=== PATIENT | female | born 1965 | race Caucasian/White ===

== ENCOUNTER → 2017-06-29 14:59 | Outpatient (CLI) | payer MEDICAID, SELFPAY ==
[2017-07-04 14:07] LABS: HPV Reflexed? NOT INDICATED
== END ==
PROVIDERS: Visit Provider Obstetrics & Gynecology
DX: Z12.4 Encounter for screening for malignant neoplasm of cervix (principal)
CPT/HCPCS: 88175; G0145

== ENCOUNTER → 2017-07-22 11:25 | Outpatient (CLI) | payer MEDICAID, SELFPAY ==
[2017-07-22 12:29] LABS: Absolute Lymphocyte Count 3.05 X10^3/ul (0.83-4.51); Absolute Neutrophil Count 5.4 X10^3/uL (2.0-7.7); Basophil# 0.02 X10^3/uL; Basophil% 0.2 % (0-1); Eosinophil# 0.15 X10^3/uL; Eosinophils% 1.6 % (0-5); Hematocrit 42.3 % (37-47); Hemoglobin 13.8 g/dl (12.0-15.0); Lymphocyte # 3.05 X10^3/ul (4.0); Lymphocyte % 32.4 % (19-41); Mean Corp Hgb Conc 32.6 g/gl (32-36); Mean Corpuscular Hgb 30.9 pg (27.0-32.0); Mean Corpuscular Volume 94.8 fL (81-99); Mean Platelet Vol. 9.3 fl (6.2-12.0); Monocyte# 0.76 X10^3/uL; Monocyte% 8.1 % (0-10); Neutrophil # 5.39 X10^3/uL (2.7-7.7); Neutrophil % 57.4 % (47-70); Platelet Count 300 K/mm3 (150-450); RBC Distribution Width SD 45.2 fl (35.1-43.9); Red Blood Count 4.46 M/mm3 (4.2-5.4); White Blood Count 9.4 K/mm3 (4.4-11.0)
[2017-07-22 12:39] LABS: POSITIVE COUNT NO; POSITIVE DIFFERENTIAL NO; POSITIVE MORPHOLOGY NO
[2017-07-22 13:07] LABS: Anion Gap 4 (5-15); BUN 15 mg/dL (7-18); BUN/Creat Ratio 20.7 RATIO (10-20); Chloride 104 mmol/L (98-107); Cholesterol 219 mg/dL (200); Creatinine, Serum 0.73 mg/dL (0.55-1.02); EST Glomerular Filtration Rate 89 mL/min (>60); Est Glom Filt Rate - Afr Amer 108 mL/min (>60); Glucose 78 mg/dL (74-106); High Density Lipoprotein 60 mg/dL; Potassium 3.8 mmol/L (3.5-5.1); Sodium Level 138 mmol/L (136-145); Triglycerides 145 mg/dL; Very Low Density Lipoprotein 29 mg/dL (5-40)
== END ==
PROVIDERS: Family Provider Internal Medicine; PCP Internal Medicine; Visit Provider Internal Medicine
DX: Z00.00 Encounter for general adult medical examination without abnormal findings (principal); Z79.899 Other long term (current) drug therapy
CPT/HCPCS: 80048; 80061; 85025

== ENCOUNTER → 2017-07-28 10:40 | Outpatient (CLI) | payer MEDICAID, SELFPAY ==
--- NOTE | 2017-07-28 10:44 | BI_ITS ---
MAMMOGRAPHY - BILATERAL SCREENING REASON FOR EXAM: Female, 51 years old. Routine annual screening examination. PERTINENT HISTORY: Aunt with breast cancer. TECHNIQUE: Digital bilateral breast naveen (3D mammographic acquisition) in the CC and MLO projections. 2-D mediolateral oblique (MLO) and craniocaudad (CC) views of both breasts were obtained. CAD: Full Field Digital Mammography with Computer Added Detection was performed. COMPARISON: Comparison is made with prior study dated November 06, 2012 and January 28, 2011. FINDINGS: Breast Composition: The breasts are heterogeneously dense, which may obscure small masses. There are no dominant masses or suspicious calcifications. No other significant abnormalities are identified. There has been no significant change since the prior study. BI/SCREENING MAMM (CAD), BILAT IMPRESSION: Stable bilateral screening mammogram. Yearly follow-up mammogram recommended. (A) ASSESSMENT CATEGORY: BIRADS Category 1: Negative. A letter regarding these results will be sent to the patient by the facility within 30 days. Approximately 10% of breast cancers are not detected by mammography. A normal mammogram should not delay biopsy of a clinically suspicious abnormality. [id number] Electronically Signed: Alton Gonzales MD at 12:27 EDT Tel [phone], Service support ,
== END ==
PROVIDERS: Family Provider Internal Medicine; PCP Internal Medicine; Visit Provider Obstetrics & Gynecology
DX: Z12.31 Encounter for screening mammogram for malignant neoplasm of breast (principal)
CPT/HCPCS: 77063; 77067

== ENCOUNTER → 2018-01-27 12:27 | Outpatient (CLI) | payer MEDICAID, SELFPAY ==
[2018-01-27 12:03] VITALS: BMI 18.9
--- NOTE | 2018-01-27 12:29 | RAD_ITS ---
STUDY: X-RAY - LEFT SHOULDER REASON FOR EXAM: Female, 52 years old. Left shoulder pain. TECHNIQUE: 4 view(s) of the shoulder. COMPARISON: None. FINDINGS: There is mild degenerative arthrosis of the glenohumeral articulation. Normal acromioclavicular joint. Posteriorly downward sloping acromion.. There is no acute fracture, dislocation or destructive osseous pathology. Normal humeral head and visualized proximal humerus. The soft tissue structures are unremarkable. Normal visualized pulmonary apex. RAD/Shoulder min 2 Views IMPRESSION: Posteriorly downward sloping acromion with mild degenerative changes of the shoulder. Electronically Signed: Zev Hamilton DO at 16:50 EST Tel [phone], Service support ,
--- OUTSIDE RECORDS SUMMARY | 2018-03-24 11:01 | XMS RPT_ITS ---
:1965 Author Organization OHIP Care Team Providers Name Role Phone America Alejandra Attending Unavailable Oleghe, Efewongbe Referring Unavailable America Alejandra Attending Unavailable America Alejandra Referring Unavailable Oleghe, Efewongbe Primary Care Unavailable Corey Pederson Attending Unavailable Estrellita Griggs Attending Unavailable Kay, Sandy Referring Unavailable Oleghe, Efewongbe Attending Unavailable Oleghe, Efewongbe Referring Unavailable Kay, Sandy Primary Care Unavailable America Alejandra Attending Unavailable Ny America Referring Unavailable Oleghe, Efewongbe Primary Care Unavailable Oleghe, Efewongbe Attending Unavailable Oleghe, Efewongbe Referring Unavailable Oleghe, Efewongbe Primary Care Unavailable Corey Pederson Attending Unavailable Corey Pederson Referring Unavailable Oleghe, Efewongbe Primary Care Unavailable Oleghe, Efewongbe Attending Unavailable Oleghe, Efewongbe Referring Unavailable Leanne Bruce Attending Unavailable Oleghe, Efewongbe Referring Unavailable Leanne Bruce Attending Unavailable JanisLeanne brooks Referring Unavailable Lance Daley Primary Care Unavailable PROBLEMS PROBLEMS DATE TYPE CONDITION / CODE ATTENDING STATUS SOURCE 01/27/2018 Unknown M25.512 - Pain in Yehuda Bruce left shoulder / [facility] M25.512(ICD-10) Hospital Repository 01/27/2018 [facility] G89.11(ICD-10) Repository 07/22/2017 Unknown Z00.00 - Yehuda Daley Encounter for [facility] medical Repository examination without abnormal findings / Z00.00(ICD-10) 06/29/2017 Unknown Z12.4 - Encounter Corey Pederson [facility] for screening for [facility] neoplasm of Repository cervix / Z12.4(ICD-10) PROCEDURES PROCEDURES No Procedure Records FoundRESULTS RESULTS INITAL EVALUATION (1) Observed: 02/15/2018 Status: F Source: JEANNETTE - PT 7:00 AM [facility] REPOSITORY [facility] [address] [place] [address] Fax REHABILITATION SERVICES INITIAL EVALUATION MR#: [id number] Acct: [id number] Name: GONZALES GOULD Rep #: [id number] : 1965 52 From: Marcial Murillo DPT, HARRIS, CSCS Referring Dr.: America Alejandra DO Status: REG R Insurance: [facility] SELF PAY INSURANCE Patient's Visit Information GONZALES GOULD is a 52 year old F referred to Physical Therapy by America Alejandra DO with a diagnosis of L shoulder pain. Date of Evaluation: 02/14/18 Physical Therapist: Marcial Murillo DPT, HARRIS, CSCS - Visit Plan Frequency: 1-2x /Week Duration: 4 Weeks Plan: weekly to start to progress HEP. Started ROM today and will progress to phase 3 strength next session if doing well. Increase freq to 3x/week if progress slows for STM, strength. - Subjective Findings: Slipped adn fell in ice end December landing on L shoulder. It now hurts to move lifting it to the side. Comfortable at rest. Sometimes it is sore at rest. Improving since it happened. X rays: OK. [facility]. Orthopedist said it was a bruise. Pain int he llast week 06/07 with movement. Reaching into cupboard and OH and putting coat on reaching back is challenging due to pain. Dresses self. Quick movements can hurt. Is R handed. Sleep is OK for the most part but cannot sleep on L side whcih is how she likes to sleep, that will make it achy. Stiffer in morning. 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 Hobbies: Enjoys walking and can do this. overall 70% better. No neck problems, no numbness or tingling in UE. - Pain L shoulder. Pain Intensity (Out of 10): 0 Pain Intensity Range: 0, 7 - Objective Posture is forward head and protracted scap. AROM is full in neck without pain. Shoulder is full but hesitant end of ext rot adn flexion/abd on L. Elbow and wrist are full and painfree. strength is 4/5 L UE except ext rot adn abd which are 4- adn painful. R side is WNL. reflexes 2/3 bi and tri. Sensation UE WNL to gross light touch. - ext rotation lag test. - drop arm. - sulcus. - c/s compression. Tender to palpation deltoid attachment L lateral shoulder minimally and L UT minimally. Clavicle and AC joint unremarkable. - Goals Goal 1:: Full aROM L shoulder without pain. Goal Time Frame: 4-6 Weeks Goal 2:: Normal sstrength adn function L shoulder 100% Goal Time Frame: 4-6 Weeks Goal 3:: I approp HEP to minimize future problems. Goal Time Frame: 4-6 Weeks - Rehabilitation Potential Physical Therapy Diagnosis: L shoulder pain, bone contusion. Rehabilitation Potential: Good - Anticipated Interventions Patient/Client Instruction: Educate patient on: Condition, Plan of Care For the Purpose of:: To decrease pain, To increase ROM, To increase tolerance to activity/condition/position, To improve ability of physical actions for home/community/work/leisure Therapeutic Exercise to Include: Strength training, Flexibilty training, Passive ROM, Active ROM For the Purpose of:: To decrease pain, To increase ROM, To improve muscle performance and motor function, To increase tolerance to activity/condition/position, To improve ability of physical actions for home/community/work/leisure Manual Therapy Techniques to Include: Soft tissue mobilization For the Purpose of:: To improve nutrient delivery to tissue Thermo therapy (hot pack): Yes For the Purpose of:: To increase oxygenation perfusion Thank you for the opportunity to evaluate your patient. For Medicare and Medicare HMO plans, please review the plan of care and approve it. It will need to be FAXED BACK to us at [phone] for Medicare purposes. For Medicare only, by signing this I certify the plan of care. Please let me know if there are questions or concerns regarding this plan of care. Physician Signature: Date: <Electronically signed by Marcial Murillo DPT, OCS, CSCS> 02/15/18 0700 CC: America Alejandra DO; Lance Daley MD EBG Signed ORTHOPEDIC VISIT Observed: 02/07/2018 Status: F Source: [place] REPORT 3:43 PM [facility] REPOSITORY [facility] [address] [place], [place] [id number] OFFICE VISIT Date of Service: 02/07/18 MR#: [id number] Acct: [id number] Name: GONZALES GOULD Rep #: [id number] : 1965 Provider: America Alejandra DO Age/Sex: 52/F Location: [facility] Status: Signed Intake Vital Signs02/07/18 Body Mass Index (BMI) 18.9 Intake Visit Reasons: LEFT SHOULDER Chief Complaint: Left shoulder , left hip pain after fall on ice, slight neck and belly ache Allergies No Known Allergies Allergy (Unverified 01/27/18 11:57) Medications ascorbic acid (vitamin C) 500 mg capsule mg PO 07/19/17 [History Confirmed 01/27/18] ibuprofen 200 mg capsule 200 mg PO TID-QID PRN 07/19/17 [History Confirmed 01/27/18] multivitamin capsule 1 cap PO QAM 07/19/17 [History Confirmed 01/27/18] multivitamin with minerals tablet 1 tab PO ONCE 07/19/17 [History Confirmed 01/27/18] vitamin B12 500 mcg-folic acid 400 mcg tablet 1 tab PO QDAY 07/19/17 [History Confirmed 01/27/18] PFSH Medical History Seasonal allergies (Chronic) Carpal tunnel syndrome (Acute) Heart murmur (Acute) Surgical History History of appendectomy (Acute) Family History Mother Myocardial infarction, Onset Age: 40 Anxiety and depression Father CVA (cerebral vascular accident) Sister Thyroid disorder Aunt Breast cancer Social History Smoking Status: Current some day smoker alcohol intake: never substance use type: does not use what type of physical activity do you participate in: walking frequency: 1-2 times per week HPI LEFT SHOULDER: Details: GONZALES GOULD is a 52 year old F here today for for a new patient visit. Patient states she fell on the ice one week ago injuring her left shoulder. [facility] had [facility], she was told she has a rotator cuff tear. She states she is not having any numbness, tingling or radiating down arm or into neck. Ortho Exam Left Shoulder Skin/Wound: Yes CDI Contralateral Normal: Yes Testing: Yes AROM-Forward Elevation 0-180, Yes AROM-External Rotation at side 0-60, No Drop Arm, No empty can, No Apprehension Test, No TTP Biceps Internal Rotation: Tip of Scapula SHOULDER: crepitus , deltoid tenderness Assessment AND Plan 1. Acute pain of left shoulder M25.512 Plan no signs of rotator cuff tear, most likely bone bruise and pain with deltoid d/t bone bruise. discussed treatment options. patient elected to proceed with PT and will come back of symptoms dont subside. Personally reviewed the patient's medical history, medications, surgeries and recent exams if available. X-rays were reviewed. There is no obvious fracture, dislocation, or lucency noted. Educated on the anatomy of the shoulder and explained that she has a contusion to the shoulder causing deltoid tenderness. Her treatment options are PT to be sure she does not get stiff. If PT fails she can return for injection Follow up in 6wks or sooner if pain, swelling, numbness or associated symptoms, or concerns develop. All questions answered. Patient in agreement of plan. Plan Detail Other Orders Orders: Coding Level of Care Code Off vis,new,level 3 Diagnoses Acute pain of left shoulder M25.512 Chronicity: acute 02/07/18 1543 <Electronically signed by America Alejandra DO> Date America Alejandra DO Cosigner Signature: Date (if applicable) CC: SHOULDER ONE VIEW Observed: 02/07/2018 Status: F Source: [place] 3:23 PM [facility] REPOSITORY [facility] Imaging Services [address] [place] [id number] Shoulder One View MR#: [id number] Acct: [id number] Name: GONZALES GOULD Rep #: [id number] : 1965 F 52 From: Juan Crowe MD PCP: Lance Daley MD Status: REG CLI Study: Shoulder One View Date of Exam: 02/07/18 Exam# [id number] Ordering Dr: America Alejandra DO STUDY: X-RAY - LEFT SHOULDER REASON FOR EXAM: Pain, fall. TECHNIQUE: A single axillary view of the shoulder. COMPARISON: Radiographs 01/27/2018. FINDINGS: Unremarkable axillary view of the left shoulder. Electronically Signed: Juan Crowe MD at 15:44 EST Tel , Service support , RAD/Shoulder One View CC: America Alejandra DO; Lance Daley MD Medical Language Specialist: Signed URGENT CARE VISIT Observed: 01/27/2018 Status: F Source: JEANNETTE REPORT 5:12 PM [facility] [address] [place] [address] OFFICE VISIT Date of Service: 01/27/18 MR#: [id number] Acct: [id number] Name: GONZALES GOULD Rep #: [id number] : 1965 Provider: MONE Bruce Age/Sex: 52/F Location: [facility] [place] Status: Signed Intake Vital Signs01/27/18 Body Mass Index (BMI) 18.9 01/27/18 Height 5 ft 4 in Intake Visit Reasons: FELL ON ICE, L SHOULDER AND HIP PAIN Chief Complaint: Left shoulder , left hip pain after fall on ice, slight neck and belly ache Flight Radio [employer] Required: No Accompanied by: Self Is patient in pain?: Yes Allergies No Known Allergies Allergy (Unverified 01/27/18 11:57) Medications ascorbic acid (vitamin C) 500 mg capsule mg PO 07/19/17 [History Confirmed 01/27/18] ibuprofen 200 mg capsule 200 mg PO TID-QID PRN 07/19/17 [History Confirmed 01/27/18] multivitamin capsule 1 cap PO QAM 07/19/17 [History Confirmed 01/27/18] multivitamin with minerals tablet 1 tab PO ONCE 07/19/17 [History Confirmed 01/27/18] vitamin B12 500 mcg-folic acid 400 mcg tablet 1 tab PO QDAY 07/19/17 [History Confirmed 01/27/18] PFSH Medical History Seasonal allergies (Chronic) Carpal tunnel syndrome (Acute) Heart murmur (Acute) Surgical History History of appendectomy (Acute) Family History Mother Myocardial infarction, Onset Age: 40 Anxiety and depression Father CVA (cerebral vascular accident) Sister Thyroid disorder Aunt Breast cancer Social History Smoking Status: Current some day smoker alcohol intake: never substance use type: does not use what type of physical activity do you participate in: walking frequency: 1-2 times per week HPI HPI Chief Complaint: Left shoulder , left hip pain after fall on ice, slight neck and belly ache Details: GONZALES GOULD, is a 52 F who presents to the office today for the above injuries after falling on ice on the sidewalk outside [facility] by [employer]. (She was coming out of [employer]). She states she landed on her left side, hitting left shoulder first and she thinks left hip because that hurts second Worst. Shoulder movement is limited and with 7/10 pain when moved. Left hip is 5/10, and worse with direct pressure. She can walk on it OK without pain. Only hurts to touch. Her neck hurts left posterior side. 5/10 pain scale. she states she did not hit her head. No dizziness, nausea or vomiting. She does complain of a little mid abdominal pain which does not hurt to press on, but hurts intermittently 4/10 pain scale around mid abdomen. Nothing seems to aggravate or alleviate it. But it is not there about 50% of the time. ROS Const Constitutional: No body ache, chills, fatigue, fever(s), night sweats, change in appetite, weakness, frequent falls, headache(s) or excessive sweating Eyes Eyes: No visual disturbances, light sensitivity, eye pain or change in vision ENT ENT: Positive for neck pain (left posterior since fall); no ear pain, ear discharge, hearing loss, dizziness/vertigo, nasal discharge, difficulty swallowing, sore throat or headache(s) Resp Respiratory: No cough, chest congestion, hemoptysis, shortness of breath or wheezing Cardio Cardiology: No shortness of breath, irregular heart rhythm, lightheadedness, chest pain at rest, chest pain with exertion, generalized swelling, orthopnea, palpitations or excessive sweating Gastro GI: Positive for abdominal pain (mid abdomen, intermittent, since fall 5/10); no difficulty swallowing, bloating, change in bowel habits, diarrhea, blood in stool, Black,tarry stools, nausea/dyspepsia or vomiting Genitourinary-Female: No burning urination, urinary frequency, urinary urgency, blood in urine or Vaginal Itching Musc Musculoskeletal: Positive for joint pain (left shoulderr), neck pain (left posterior since fall) and limited range of motion; no back pain, numbness or tingling Skin Skin: No lesions, itching or rash Neuro Neurology: No visual disturbances, numbness, tingling, abnormal speech, confusion, unsteady gait/balance, dizziness, weakness, frequent falls, loss of vision or headache(s) Psych Psychiatric: No change in appetite, No confusion, No anxiety, No depression Endo Endocrine: No fatigue, cold intolerance, excessive sweating, flushing, heat intolerance or increased thirst/drinking Aller/Imm Allergy/Immunologic: No wheezing, itchy eyes, food intolerance, seasonal allergy symptoms or hives Vahid/Lymp Hematologic/Lymphatic: No easy bruising Exam Const General: cooperative, no acute distress, anxious, frail appearing Nutritional Appearance: average body habitus, thin Orientation: alert, oriented x3 HENMT Head: normal to inspection, normocephalic, no scalp tenderness, no lacerations, atraumatic Ears: hearing grossly normal bilaterally, external ears normal, TM normal on the right, TM normal on the left, no periauricular adenopathy, EAC's normal Nose: nasal mucous membranes and turbinates normal, no nasal discharge Face and sinus: normal facial exam, sinuses nontender Mouth: oral mucosae normal, oropharynx normal, tongue normal Throat: posterior oropharynx normal Eyes General: appearance normal, both eyes and all related structures Visual Talavera: normal visual talavera by confrontation Eyelids: eyelids normal Conjunctivae: conjunctivae normal Sclera: sclerae normal Pupils: PERRL, normal by confrontation, accommodation normal EOM: EOM intact bilaterally Direct ophthalmoscopy: normal light reflex, no papilledema, no photophobia, fundi normal bilaterally Neck Neck: normal visual inspection, full ROM, no meningeal signs, trachea midline, supple, no lymphadenopathy, tender (left posterolateral) Neck mass: No Carotids: no bruits Lymphatic: no lymphadenopathy noted Chest Chest palpation AND inspection: normal inspection of the chest Resp Effort AND Inspection: normal respiratory effort, able to speak in complete sentences, symmetric chest movement, no audible wheezes, no cough, not labored, no respiratory distress Auscultation: Bilateral: Clear to Auscultation Cardio Rate: regular rate Rhythm: regular rhythm Heart Sounds: S1 normal, S2 normal GI Inspection: normal to inspection Auscultation: normal bowel sounds Palpation: soft, no hepatosplenomegaly, no pulsatile masses Musc Musculoskeletal: Yes joint tenderness (left postrior shoulder); no joint redness Cervical Spine: normal cervical lordosis and cervical ROM normal; no pain with cervical ROM, cervical spasm or cervical spinal tenderness Thoracic/Lumbar Spine: thoracic and lumbar spine normal to inspection, straight leg raise negative bilaterally, no pain with thoraco-lumbar ROM, no paraspinal tenderness, no thoraco-lumbar spasm, no lumbar spinal tenderness Other: Left lateral hip 5/10 tender to deep direct pressure over greater trochanter. Full ROM without pain. No Pain with IR and ER. No pain with full squat and rise without difficulty. Skin General: no rashes or lesions noted Neuro General: alert, oriented x3, does not move all extremities (limited motion left shoulder) Cranial Nerves: CN's II-XI intact bilaterally Cognition: normal cognition Speech: speech normal Gait: normal gait Motor: muscle tone normal throughout Sensory Exam: no sensory deficits noted Coordination: [id number] test abnormal, abnormal rapid alternating movement UE Other: unable to do finger to nose or alternating movements with left upper extremity due to left shoulder pain. Extrem General: normal exam except as noted (left shoulder limited ROM) Other: Left shoulder: Limited ROM: Abducts, FF, to 20 degrees with 8/10 pain She can reach across chest anteriorly and touch opposite shoulder. Post flexion to 30 Degrees with pain. Posterior left shoulder /neck min/mod point tender with Full neck ROM without pain. Psych Appearance: grossly normal, well kempt Mental Status: mental status grossly normal Mood: congruent mood Affect: normal affect, anxious affect Speech and Movement: speech and movement normal Attitude: cooperative Thought Process: circumstantial Thought Content: normal Judgment: fair Other: Patient refusing to investigate whether this is a W/C case as she is afraid of loosing her jobs. Assessment AND Plan Problems 1. Contusion of left shoulder, initial encounter S40.012A 2. Neck pain on left side M54.2 3. Abdominal pain due to injury R10.9 4. Strain of left hip, initial encounter S76.012A 5. Contusion of left hip, initial encounter S70.02XA 6. Strain of left shoulder, initial encounter S46.912A Plan XRAY left shoulder Patient will go home and wait for phone result. She requests xray results to be faxed to her chiropractor. Ibuprofen every 6-8 hours (otc) She is directed to the ER should 1) Her abdominal pain worsens, or has any blood in her stool, nausea, vomiting dizziness 2) She becomes SOB or her shoulder pain becomes more severe. xray returned negative for any fracture. It did show posteriorly downward sloping acromion with mild degenerative changes of the shoulder. Rec: f/u with Ortho for further evaluation and treatment of her right shoulder- suspect rotatotor cuff tear and will need MRI etc. Names of local orthopedists for shoulder given to her. Orders Orders: Coding Level of Care Code Off vis,new,level 3 Diagnoses Contusion of left shoulder, initial encounter S40.012A Encounter type: initial encounter Neck pain on left side M54.2 Abdominal pain due to injury R10.9 Strain of left hip, initial encounter S76.012A Encounter type: initial encounter Contusion of left hip, initial encounter S70.02XA Encounter type: initial encounter Strain of left shoulder, initial encounter S46.912A Encounter type: initial encounter 01/27/18 1712 <Electronically signed by Leanne SHORE> Date Leanne SHORE Cosigner Signature: Date (if applicable) CC: SHOULDER MIN 2 VIEWS Observed: 01/27/2018 Status: F Source: [place] 12:29 PM [facility] REPOSITORY [facility] Imaging Services [address] [place] [id number] Shoulder min 2 Views MR#: [id number] Acct: [id number] Name: GONZALES GOULD Sathish Rep #: [id number] : 1965 F 52 From: Zev Hamilton DO PCP: Lance Daley MD Status: REG CLI Study: Shoulder min 2 Views Date of Exam: 01/27/18 Exam# [id number] Ordering Dr: Leanne Bruce STUDY: X-RAY - LEFT SHOULDER REASON FOR EXAM: Female, 52 years old. Left shoulder pain. TECHNIQUE: 4 view(s) of the shoulder. COMPARISON: None. FINDINGS: There is mild degenerative arthrosis of the glenohumeral articulation. Normal acromioclavicular joint. Posteriorly downward sloping acromion.. There is no acute fracture, dislocation or destructive osseous pathology. Normal humeral head and visualized proximal humerus. The soft tissue structures are unremarkable. Normal visualized pulmonary apex. RAD/Shoulder min 2 Views IMPRESSION: Posteriorly downward sloping acromion with mild degenerative changes of the shoulder. Electronically Signed: Zev Hamilton DO at 16:50 EST Tel [phone], Service support , CC: MONE Bruce; Lance Daley MD Medical Language Specialist: Signed SCREENING MAMM (CAD), Observed: 07/28/2017 Status: F Source: [facility] 10:45 AM [facility] REPOSITORY [facility] Imaging Services [address] [place] [address] SCREENING MAMM (CAD), BILAT MR#: [id number] Acct: [id number] Name: GONZALES GOULD Rep #: [id number] : 1965 F 51 From: Alton Gonzales MD PCP: Lance Daley MD Status: REG CLI Study: SCREENING MAMM (CAD), BILAT Date of Exam: 07/28/17 Exam# [id number] Ordering Dr: Corey Pederson MD MAMMOGRAPHY - BILATERAL SCREENING REASON FOR EXAM: Female, 51 years old. Routine annual screening examination. PERTINENT HISTORY: Aunt with breast cancer. TECHNIQUE: Digital bilateral breast naveen (3D mammographic acquisition) in the CC and MLO projections. 2-D mediolateral oblique (MLO) and craniocaudad (CC) views of both breasts were obtained. CAD: Full Field Digital Mammography with Computer Added Detection was performed. COMPARISON: Comparison is made with prior study dated November 06, 2012 and January 28, 2011. FINDINGS: Breast Composition: The breasts are heterogeneously dense, which may obscure small masses. There are no dominant masses or suspicious calcifications. No other significant abnormalities are identified. There has been no significant change since the prior study. BI/SCREENING MAMM (CAD), BILAT IMPRESSION: Stable bilateral screening mammogram. Yearly follow-up mammogram recommended. (A) ASSESSMENT CATEGORY: BIRADS Category 1: Negative. A letter regarding these results will be sent to the patient by the facility within 30 days. Approximately 10% of breast cancers are not detected by mammography. A normal mammogram should not delay biopsy of a clinically suspicious abnormality. [id number] Electronically Signed: Alton Gonzales MD at 12:27 EDT Tel [phone], Service support , CC: Corey Pederson MD; Lance Daley MD Medical Language Specialist: Signed CBC W/DIFF, AUTOMATED Collected: 07/22/2017 Status: F Source: [place] 11:43 AM [facility] REPOSITORY TYPE CODE TESTS RESULT OUT OF RANGE REFERENCE UNITS LAB L100.1000 4.4-11.0 K/mm3 Normal WBC 9.4 LAB L100.1200 4.2-5.4 M/mm3 Normal RBC 4.46 LAB L100.1300 12.0-15.0 g/dl Normal HGB 13.8 LAB L100.1400 37-47 % Normal HCT 42.3 LAB L100.1500 81-99 fL Normal MCV 94.8 LAB L100.1600 27.0-32.0 pg Normal MCH 30.9 LAB L100.1700 32-36 g/gl Normal MCHC 32.6 LAB L100.1810 11.6-14.6 % Normal RDW CV 13.0 LAB L100.1820 35.1-43.9 fl High RDW SD 45.2 LAB L100.1900 150-450 K/mm3 Normal PLT 300 LAB L100.2000 6.2-12.0 fl Normal MPV 9.3 LAB L100.2100 47-70 % Normal NEUT% 57.4 LAB L100.2200 19-41 % Normal LY% 32.4 LAB L100.2300 0-10 % Normal MONO% 8.1 LAB L100.2400 0-5 % Normal EO% 1.6 LAB L100.2500 0-1 % Normal BASO% 0.2 LAB L100.2550 0.0-0.9 % Normal IM GRAN % 0.300 Result Comment: IG% - Immature Granulocytes (promyelocytes, myelocytes and metamyelocytes) > 1% indicates that a LEFT SHIFT is Present. LAB L100.2620 2.0-7.7 X10 3/uL Normal Absolute Neut 5.4 LAB L100.2720 0.83-4.51 X10 3/ul Normal Absolute Lymph 3.05 Performed By: #### L100.0100 #### [facility] [address] [place], [address] BASIC METABOLIC Collected: 07/22/2017 Status: F Source: LANDIS PROFILE ([facility] [facility]) 11:43 AM [facility] REPOSITORY TYPE CODE TESTS RESULT OUT OF RANGE REFERENCE UNITS LAB L501.0100 74-106 mg/dL Normal GLU 78 Result Comment: Please note revised GLUCOSE reference range effective 2017. LAB L501.1000 7-18 mg/dL Normal BUN 15 LAB L501.1100 0.55-1.02 mg/dL Normal CREAT,SERUM 0.73 Result Comment: The validity of the calculated GFR AND GFRAA in patients over 70 years has not been determined. Clinical correlation is essential. LAB L501.1110 >60 mL/min Normal EST GFR 89 Result Comment: Non- GFR Calc LAB L501.1115 >60 mL/min Normal EST GFR - AA 108 Result Comment: GFR Calc LAB L501.1300 10-20 RATIO High BUN/CRE 20.7 LAB L501.2200 8.5-10.1 mg/dL CA Normal 9.0 LAB L501.5300 136-145 mmol/L NA Normal 138 LAB L501.5600 3.5-5.1 mmol/L K Normal 3.8 LAB L501.5900 98-107 mmol/L CL Normal 104 LAB L501.6100 21.0-32.0 mmol/L Normal CO2 30.0 LAB L501.6200 5-15 Low GAP 4 Performed By: #### L500.2500, L500.4100 #### [facility] [address] [place], [address] LIPID PROFILE Collected: 07/22/2017 Status: F Source: [place] 11:43 AM [facility] REPOSITORY TYPE CODE TESTS RESULT OUT OF RANGE REFERENCE UNITS LAB L501.4900 200 mg/dL High CHOL 219 Result Comment: <200 mg/dL Desirable 200-240 mg/dL Borderline >240 mg/dL High Risk LAB L501.5000 mg/dL Normal TRIG 145 Result Comment: The drugs N-Acetylcysteine and Metamizole may falsely depress this assay. Serum Triglycerides Reference Interval Normal <150 mg/dL Borderline high 150 - 199 mg/dL High 200 - 499 mg/dL Very High > or = 500 mg/dL LAB L501.6400 mg/dL Normal HDL 60 Result Comment: The drugs N-Acetylcysteine and Metamizole may falsely depress this assay. Reference Range HDL <40 mg/dL Low HDL Cholesterol HDL >or= 60 mg/dL High HDL Cholesterol LAB L501.6500 0-130 mg/dL Normal LDL 130 LAB L501.6600 5-40 mg/dL Normal VLDL 29 Performed By: #### L500.2500, L500.4100 #### [facility] [address] [place], [address] INTERNAL MEDICINE Observed: 07/19/2017 Status: F Source: [place] OFFICE VISIT 4:48 PM [facility] REPOSITORY [facility] [address] [place] [address] [place] [address] OFFICE VISIT Date of Service: 07/19/17 MR#: [id number] Acct: [id number] Name: GONZALES GOULD Rep #: [id number] : 1965 Provider: Lance Daley MD Age/Sex: 51/F Location: [facility] [place] Status: Signed Intake Vital Signs07/19/17 Height 5 ft 3 in Intake Visit Reasons: EST Care Chief Complaint: establish care Is patient in pain?: No Allergies No Known Allergies Allergy (Unverified 07/19/17 15:02) Medications ascorbic acid (vitamin C) 500 mg capsule mg PO 07/19/17 [History Confirmed 07/19/17] ibuprofen 200 mg capsule 200 mg PO TID-QID PRN 07/19/17 [History Confirmed 07/19/17] multivitamin capsule 1 cap PO QAM 07/19/17 [History Confirmed 07/19/17] multivitamin with minerals tablet 1 tab PO ONCE 07/19/17 [History Confirmed 07/19/17] vitamin B12 500 mcg-folic acid 400 mcg tablet 1 tab PO QDAY 07/19/17 [History Confirmed 07/19/17] PFSH Medical History Seasonal allergies (Chronic) Carpal tunnel syndrome (Acute) Heart murmur (Acute) Surgical History History of appendectomy (Acute) Family History Mother Myocardial infarction, Onset Age: 40 Anxiety and depression Father CVA (cerebral vascular accident) Sister Thyroid disorder Aunt Breast cancer Social History Smoking Status: Current some day smoker alcohol intake: never substance use type: does not use what type of physical activity do you participate in: walking frequency: 1-2 times per week HPI HPI Chief Complaint: establish care Details: GONAZLES GOULD, is a 51yo F who presents to the office today to establish care. 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 Scheduled for a mammogram soon and last pap smear was said to be normal. She is a current every day smoker. ROS Const Constitutional: No weight change, body ache, chills, fatigue, sleep problems, fever(s), change in appetite, snoring, weakness, frequent falls, headache(s) or excessive sweating Eyes Eyes: No change in vision, eye pain, light sensitivity or blurry vision ENT ENT: No headache(s), abnormal hearing, ear pain, tinnitus, nasal congestion, sore throat or neck pain Resp Respiratory: No snoring, cough, shortness of breath or wheezing Cardio Cardiology: No excessive sweating, chest pain at rest, chest pain with exertion, shortness of breath, dyspnea on exertion, palpitations, orthopnea or lightheadedness Gastro GI: No abdominal pain, change in bowel habits, constipation, diarrhea, vomiting, nausea/dyspepsia or cramping Genitourinary-Female: No burning urination, painful urination, urinary incontinence, urinary frequency, abnormal vaginal bleeding, pelvic pain or other Musc Musculoskeletal: No neck pain, abnormal walking, joint pain, back pain, limited range of motion, numbness or tingling Skin Skin: No redness, dry skin, itching, wounds or rash Neuro Neurology: No weakness, frequent falls, headache(s), abnormal hearing, abnormal walking, numbness, tingling, abnormal speech, dizziness or memory loss Psych Psychiatric: No change in appetite, No memory loss, No anxiety, No depression, No Thoughts of harming yourself/Others Endo Endocrine: No fatigue, excessive sweating, cold intolerance, increased thirst/drinking, heat intolerance, flushing or increased hunger Aller/Imm Allergy/Immunologic: No wheezing, itchy eyes, hives or seasonal allergy symptoms Vahid/Lymp Hematologic/Lymphatic: No easy bleeding, easy bruising or enlarged lymph nodes Exam Const General: cooperative, no acute distress Orientation: alert, oriented x3, awake HENRI Head: normal to inspection, normocephalic, atraumatic Ears: hearing grossly normal bilaterally Resp Effort AND Inspection: normal respiratory effort, able to speak in complete sentences Auscultation: Bilateral: Clear to Auscultation Cardio Rate: regular rate Rhythm: regular rhythm Heart Sounds: S1 normal, S2 normal GI Palpation: soft, no hepatosplenomegaly Neuro General: alert, oriented x3, awake, moves all extremities, CN's II-XI intact bilaterally Extrem General: no clubbing, cyanosis or edema Psych Appearance: grossly normal Mental Status: mental status grossly normal Mood: congruent mood Affect: normal affect Assessment AND Plan 1. Encounter for preventive care Z00.00 Plan Ms. Gould is doing well today. Vitals are stable. No recent blood work, labs ordered. Smoking cessation discussed. Patient is motivated to quite. Follow up in 2 month so assess cessation efforts. Daily calcium and Vitamin D recommended. Patient is post menopausal and is at risk for osteoporosis. Follow up with lab results. Orders Orders: Plan Detail Follow Up 2 Months Coding Level of Care Code Off vis,new,prev 40-64yrs Diagnoses Encounter for preventive care Z00.00 07/19/17 0762 <Electronically signed by Lance Daley MD> Date Lance Knowlesignhaylee Signature: Date (if applicable) CC: PAP I-G W/RFX HRHPV Collected: 06/29/2017 Status: F Source: JEANNETTE 10:20 AM [facility] REPOSITORY Order Comment: CYTOLOGY INFORMATION: - CLINICAL INFORMATION: POSTMENOPAUSAL BLEEDING - DATE LMP/MENOPAUSE: - COLLECTION VIAL: Thin Prep Vial - OUTSOLE CEMENTER SOURCE: CERVICAL/ENDOCERVICAL - COLLECTION TECHNIQUE: BRUSH/SPATULA Specimen Comment: [id number] Specimen Comment: No. of containers..01 ThinPrep Vial TYPE CODE TESTS RESULT OUT OF RANGE REFERENCE UNITS LAB L7400.0800 . Normal DIAGN Comment Result Comment: NEGATIVE FOR INTRAEPITHELIAL LESION AND MALIGNANCY. LAB L7400.0900 . Normal ADEQ Comment Result Comment: Satisfactory for evaluation. Endocervical and/or squamous metaplastic cells (endocervical component) are present. LAB L7400.1400 . Normal PERFORM Comment Result Comment: René Harrell, Rug Dry Room Attendant (ASCP) LAB L7400.2575 . Normal TEST METHOD Comment Result Comment: This liquid based ThinPrep(R) pap test was screened with the use of an image guided system. LAB L7400.2600 . Normal . COMM LAB L7400.2700 . Normal PAPSMR Comment Result Comment: The Pap smear is a screening test designed to aid in the detection of premalignant and malignant conditions of the uterine cervix. It is not a diagnostic procedure and should not be used as the sole means of detecting cervical cancer. Both false-positive and false-negative reports do occur. LAB L7400.2800 . Normal HPV RFLX Comment Result Comment: The HPV DNA reflex criteria were not met with this specimen result therefore, no HPV testing was performed. Performed at: [address] [id number] Amphibian Crewmember: Luzma Alfonso MD, Phone: [phone] Performed By: #### L7400.0350 #### [facility] (refer to report for specific site) refer to report for address and phone number ALLERGIES ALLERGIES DATE TYPE / CODE NAME / CODE REACTION SEVERITY SOURCE 01/27/2018 Drug No Known Unknown Jeannette [facility] Allergy/4160 Allergies/F00 [facility] 39856(SNOMED [id number](RXNOR Repository CT) M) ENCOUNTERS ENCOUNTERS ADMIT/DISCHARGE ACCOUNT ADMITTING ENCOUNTER LOCATION SOURCE NUMBER CLASS 02/14/2018 [id number] Ambulatory [place] Jeannette 8 [facility] ing:PT Repository 02/07/2018 [id number] Ambulatory Je[place] Jeannette 6 [facility] ing:HPRAD Repository 02/07/2018/ [id number] Ambulatory BMSBuilding:B [place] 8 0 [facility] Repository 01/27/2018 [id number] Ambulatory [place] Jeannette 0 [facility] ing:HPRAD Repository 01/27/2018/ [id number] Ambulatory BMSBuilding:B [place] 8 0 [place] Repository 09/19/2017 [id number] Ambulatory BMSBuilding:B [place] 7 [place] Repository 07/28/2017 [id number] Ambulatory [place] 6 [facility] ing:OPBI Repository 07/22/2017 [id number] Ambulatory Jeannette Jeannette 1 [facility] ing:LAB Repository 07/19/2017/ [id number] Ambulatory BMSBuilding:B [place] 8 3 [facility] Repository 07/08/2017/ [id number] Ambulatory BMSBuilding:B [place] 8 7 [facility] Repository 06/29/2017 [id number] Ambulatory [place]ette 8 [facility] ing:LABSPEC Repository PAYERS PAYERS ENCOUNTER GUARANTOR PAYER SUBSCRIBER SOURCE 02/14/2018 GONZALES Bower Primary GONZALES Mach[place] [id number] [facility] Number: [id number] [id number] Repository [address]Dkh: ([phone]) Date:2015-03-31P O [phone] () [address]ATTN: [place] [address]XB: 02/14/2018 Secondary NOT GIVENUNK [place] Insurance:SELF PAY [facility] Number: Effective Repository Date:2018-02-07 02/07/2018 GONZALES R Primary GONZALES R [place] [id number] Insurance:CARESOURCEP [place]: [facility] Number: [id number] [id number] Repository [address]Fxr: ([phone]) Date:2018-02-07P O [phone] () [address]ATTN: [place] [address]WS: 02/07/2018 Secondary NOT GIVENUNK [place] Insurance:SELF PAY [facility] Number: Effective Repository Date:2018-02-07 02/07/2018 GONZALES R Primary GONZALES R [place] [id number] Insurance:CARESOURCEP [place]DOB: [facility] Number: [id number] [id number] Repository [address]Utn: [phone]) Date:2018-01-30P O [phone] () [address]ATTN: [place]S [place] [address]NZ: 02/07/2018 Secondary NOT GIVENUNK [place] Insurance:SELF PAY [facility] Number: Effective Repository Date:2018-02-06 01/27/2018 GONZALES R Primary GONZALES R [place] [id number] Insurance:CARESOURCEP [place]DOB: [facility] Number: [id number] [id number] Repository [address]Uum: ([phone]) Date:2018-01-27P O [phone] () [address]ATTN: CLAIMS [place] [address]CI: 01/27/2018 Secondary NOT GIVENUNK [place] Insurance:SELF PAY [facility] Number: Effective Repository Date:2018-01-27 01/27/2018 GONZALES R Primary GONZALES R [place] [id number] Insurance:CARESOURCEP [place]FORDDOB: [facility] Number: [id number] [id number] Repository [address]Zkr: ([phone]) Date:2018-01-27P O [phone] () [address]ATTN: [place] [address]QX: 01/27/2018 Secondary NOT GIVENUNK [place] Insurance:SELF PAY [facility] Number: Effective Repository Date:2018-01-27 09/19/2017 GONZALES R Primary GONZALES R [place] [id number] Insurance:CARESOURCEP [place]FORDDOB: [facility] Number: [id number] [id number] Repository [address]Ipu: ([phone]) Date:2017-07-19P O [phone] () [address]ATTN: [place] [address]ZT: 09/19/2017 Secondary NOT GIVENUNK [place] Insurance:SELF PAY [facility] Number: Effective Repository Date:2017-07-19 07/28/2017 GONZALES R Primary GONZALES R [place] [id number] Insurance:CARESOURCEP [place]ORDDOB: [facility] Number: [id number] [id number] Repository [address]Osb: ([phone]) Date:2017-06-30P O [phone] () [address]ATTN: [place] [address]AY: 07/28/2017 Secondary NOT GIVENUNK [place] Insurance:SELF PAY [facility] Number: Effective Repository Date:2017-06-30 07/22/2017 GONZALES R Primary GONZALES R [place] [id number] Insurance:CARESOURCEP [place]ORDDOB: [facility] Number: [id number] [id number] Repository [address]Qea: ([phone]) Date:2017-07-22P O [phone] (HP) [address]ATTN: [place] [address]NU: 07/22/2017 Secondary NOT GIVENUNK Je[place] Insurance:SELF PAY [facility] Number: Effective Repository Date:2017-07-22 07/19/2017 GONZALES R Primary GONZALES R [place] [id number] Insurance:CARESOURCEP [place]ORDDOB: [facility] Number: [id number] [id number] Repository [address]Hrl: ([phone]) Date:2017-07-11P O [phone] (HP) [address]ATTN: [place] [address]WP: 07/19/2017 Secondary NOT GIVENUNK [place] Insurance:SELF PAY [facility] Number: Effective Repository Date:2017-07-11 07/08/2017 GONZALES R Primary GONZALES R [place] [id number] Insurance:CARESOURCEP [place]FORDDOB: [facility] Number: [id number] [id number] Repository [address]Moo: Date:2017-07-08P O [phone] [address]ATTN: CLAIMS -2 (HP) [place] [address]QL: 07/08/2017 Secondary NOT GIVENUNK [place] Insurance:SELF PAY [facility] Number: Effective Repository Date:2017-07-08 06/29/2017 ALEKS R Primary ALEKS R [place] [id number] Insurance:CARESOURCEP [place]ORDDOB: [facility] Number: [id number] [id number] Repository [address]Mbu: Date:2017-06-29P O [phone] [address]ATTN: CLAIMS -2 (HP) [place] [address]TC: 06/29/2017 Secondary NOT GIVENUNK [place] Insurance:SELF PAY [facility] Effective Repository Date:2017-06-29
== END ==
PROVIDERS: Family Provider Internal Medicine; PCP Internal Medicine; Referring Provider Physician Assistant Medical; Visit Provider Physician Assistant Medical
DX: M25.512 Pain in left shoulder (principal); G89.11 Acute pain due to trauma
CPT/HCPCS: 73030

== ENCOUNTER → 2018-02-07 15:21 | Outpatient (CLI) | payer MEDICAID, SELFPAY ==
[2018-02-07 15:17] VITALS: BMI 18.9
--- NOTE | 2018-02-07 15:23 | RAD_ITS ---
STUDY: X-RAY - LEFT SHOULDER REASON FOR EXAM: Pain, fall. TECHNIQUE: A single axillary view of the shoulder. COMPARISON: Radiographs 01/27/2018. FINDINGS: Unremarkable axillary view of the left shoulder. Electronically Signed: Juan Crowe MD at 15:44 EST Tel , Service support , RAD/Shoulder One View
--- OUTSIDE RECORDS SUMMARY | 2018-03-26 22:50 | XMS RPT_ITS ---
[...] Efewongbe Referring Unavailable Leanne Bruce Attending Unavailable Leanne Bruce Referring Unavailable Thuy [facility] Primary [facility] Unavailable PROBLEMS PROBLEMS DATE TYPE CONDITION / CODE ATTENDING STATUS SOURCE 03/02/2018 Unknown M25.512 - Pain in [place], Active [place] left shoulder / [facility] M25.512(ICD-10) Hospital Repository 03/02/2018 Unknown S40.012D - [place]aelli, Active [place] Contusion of left [facility] shoulder, Hospital subsequent Repository encounter / S40.012D(ICD-10) 01/27/2018 Unknown G89.11 - Acute Yehuda Bruce pain due to [facility] trauma / Hospital G89.11(ICD-10) Repository 07/22/2017 Unknown Z00.00 - Yehuda Daley Encounter for [facility] medical Repository examination without abnormal findings / Z00.00(ICD-10) 06/29/2017 Unknown Z12.4 - Encounter Corey Pederson [facility] for screening for [facility] neoplasm of Repository cervix / Z12.4(ICD-10) PROCEDURES PROCEDURES No Procedure Records FoundRESULTS RESULTS INITAL EVALUATION (1) Observed: 02/15/2018 Status: F Source: [place] - PT 7:00 AM [facility] [place] [address] [place] [address]. [address] [place], [place] [address] Fax REHABILITATION SERVICES INITIAL EVALUATION MR#: [id number] Acct: [id number] Name: GONZALES GOULD Rep #: [id number] : 1965 52 From: Marcial Murillo DPT, HARRIS, RAJWINDER Referring Dr.: America Alejandra DO Status: REG RCR Insurance: [facility] SELF PAY INSURANCE Patient's Visit Information GONZALES [...] achy. Stiffer in morning. 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 For Medicare only, by signing this I certify the plan of care. Please let me know if there are questions or concerns regarding this plan of care. Physician Signature: Date: <Electronically signed by Marcial Murillo DPT, OCS, CSCS> 02/15/18 0700 CC: America Alejandra DO; Lance Daley MD EBG Signed ORTHOPEDIC VISIT Observed: 02/07/2018 Status: F Source: [place] REPORT 3:43 PM [facility] [place] Orthopaedics AND Sports Medicine [address] [place], [place] [id number] OFFICE VISIT Date of Service: 02/07/18 MR#: [id number] Acct: [id number] Name: JOCEGONZALES R Rep #: [id number] : 1965 Provider: America Alejandra DO Age/Sex: 52/F [place] [facility] [place]: Signed Intake Vital Signs02/07/18 Body Mass [...] ONE VIEW Observed: 02/07/2018 Status: F Source: [place] 3:23 PM [facility] [place] Imaging Services [address] [place] [address] Shoulder One View MR#: [id number] Acct: [id number] Name: GONZALES GOULD Rep #: [id number] : 1965 F 52 From: Juan Crowe MD PCP: Lance Daley MD Status: REG CLI Study: Shoulder One View Date of Exam: 02/07/18 Exam# [id number] Ordering Dr: America Alejandra DO STUDY: X-RAY - LEFT SHOULDER REASON FOR EXAM: Pain, fall. TECHNIQUE: A single axillary view of the shoulder. COMPARISON: Radiographs 01/27/2018. FINDINGS: Unremarkable axillary view of the left shoulder. Electronically Signed: Juan Crowe MD at 15:44 EST Tel , Service support , RAD/Shoulder One View CC: America Alejandra DO; Lance Daley MD Custodial Officer: Signed URGENT CARE VISIT Observed: 01/27/2018 Status: F Source: [place] REPORT 5:12 PM [facility] [place] [address] [place] [address] [address] [place] [address] OFFICE VISIT Date of Service: 01/27/18 MR#: [id number] Acct: [id number] Name: GONZALES GOULD Rep #: [id number] : 1965 Provider: MONE Bruce Age/Sex: 52/F Location[place] [facility] [place] Status: Signed Intake Vital Signs01/27/18 Body Mass Index (BMI) 18.9 01/27/18 Height 5 ft 4 in Intake Visit Reasons: FELL ON ICE, L SHOULDER AND HIP PAIN Chief Complaint: Left shoulder , left hip pain after fall on ice, slight neck and belly ache [employer]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 (She was coming out of [place]). She states she landed on her left [...] Sensory Exam: no sensory deficits noted Coordination: fismrv-wu-rfwj test abnormal, abnormal rapid alternating movement UE [...] 2 VIEWS Observed: 01/27/2018 Status: F Source: [place] 12:29 PM [facility] [place] [facility] Imaging Services [address] [place] [address] Shoulder min 2 Views MR#: [id number] Acct: [id number] Name: GONZALES GOULD Rep #: [id number] : 1965 F 52 From: Zev Hamilton DO PCP: Lance Daley MD Status: REG CLI Study: Shoulder min 2 Views Date of Exam: 01/27/18 Exam# [id number] Ordering Dr: Leanne Bruce STUDY: X-RAY - [...] Zev Hamilton DO at 16:50 EST Tel [phone], Service support , CC: MONE Bruce; Lance Daley MD Custodial Officer: Signed SCREENING MAMM (CAD), Observed: 07/28/2017 Status: F Source: [facility] 10:45 AM [facility] [place] Imaging Services [address] [place] [address] SCREENING MAMM (CAD), BIL MR#: [id number] Acct: [id number] Name: GONZALES GOULD Rep #: [id number] : 1965 F 51 From: Alton Gonzales MD PCP: Lance Daley MD Status: REG CLI Study: SCREENING MAMM (CAD), BILAT Date of Exam: 07/28/17 Exam# [id number] Ordering Dr: Corey Pederson MD MAMMOGRAPHY - [...] delay biopsy of a clinically suspicious abnormality. [id number] Electronically Signed: Alton Gonzales MD at 12:27 EDT Tel [phone], Service support , CC: Corey Pederson MD; Lance Daley MD Custodial Officer: Signed CBC W/DIFF, AUTOMATED Collected: 07/22/2017 Status: F Source: [place] 11:43 AM [facility] [place] TYPE CODE TESTS RESULT OUT OF [...] Lymph 3.05 Performed By: #### L100.0100 #### [facility] [address] [place], [place], [address] BASIC METABOLIC Collected: 07/22/2017 Status: F Source: [place] PROFILE (BMP) 11:43 AM [facility] TYPE CODE TESTS RESULT OUT OF [...] 4 Performed By: #### L500.2500, L500.4100 #### [facility] [address] [place], [address] LIPID PROFILE Collected: 07/22/2017 Status: F Source: [place] 11:43 AM [facility] [place] [facility] TYPE CODE TESTS RESULT OUT OF [...] 29 Performed By: #### L500.2500, L500.4100 #### [facility] [address] [place], [address] INTERNAL MEDICINE Observed: 07/19/2017 Status: F Source: [place] OFFICE VISIT 4:48 PM [facility] [address] [place] [address] [place] [address] OFFICE VISIT Date of Service: 07/19/17 MR#: [id number] Acct: [id number] Name: GONZALES GOULD Rep #: [id number] : 1965 Provider: Lance Daley MD Age/Sex: 51/F Location: [facility] [place] Status: Signed Intake Vital Signs07/19/17 Height 5 [...] HPI HPI Chief Complaint: establish care Details: GONZALES GOULD, is a 51yo F who presents to the office today to establish care. 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 Scheduled for a mammogram soon and last [...] acute distress Orientation: alert, oriented x3, awake HENMT Head: normal to inspection, normocephalic, atraumatic Ears: [...] Diagnoses Encounter for preventive care Z00.00 07/19/17 1648 <Electronically signed by Lance Daley MD> Date Lance Daley MD Cosigner Signature: Date (if applicable) CC: PAP I-G W/RFX HRHPV Collected: 06/29/2017 Status: F Source: [place] 10:20 AM [facility] [place] [facility] Order Comment: CYTOLOGY INFORMATION: - CLINICAL INFORMATION: POSTMENOPAUSAL BLEEDING - DATE LMP/MENOPAUSE: - COLLECTION VIAL: Thin Prep Vial - DISABILITY EXAMINER SOURCE: CERVICAL/ENDOCERVICAL - COLLECTION TECHNIQUE: BRUSH/SPATULA Specimen Comment: [id number] Specimen Comment: No. of containers..01 ThinPrep Vial TYPE CODE TESTS RESULT OUT OF RANGE REFERENCE UNITS LAB L7400.0800 . Normal DIAGN Comment Result Comment: NEGATIVE FOR INTRAEPITHELIAL LESION AND MALIGNANCY. LAB L7400.0900 . Normal ADEQ Comment Result Comment: Satisfactory for evaluation. Endocervical and/or squamous metaplastic cells (endocervical component) are present. LAB L7400.1400 . Normal PERFORM Comment Result Comment: René Harrell, Inspector Automatic Typewriter (ASCP) LAB L7400.2575 . Normal TEST METHOD [...] no HPV testing was performed. Performed at: [facility] [id number] Flight Crew Time Clerk: Luzma Alfonso MD, Phone: [phone] Performed By: #### L7400.0350 #### [facility] (refer to report for specific site) refer to report for address and phone number ALLERGIES ALLERGIES DATE TYPE / CODE NAME / CODE REACTION SEVERITY SOURCE 01/27/2018 Drug No Known Unknown [place] [facility] Allergy/4160 Allergies/F00 Hospital 10421(SNOMED 5027000(RXNOR Repository CT) M) ENCOUNTERS ENCOUNTERS ADMIT/DISCHARGE ACCOUNT ADMITTING ENCOUNTER LOCATION SOURCE NUMBER CLASS 03/02/2018 [id number] Ambulatory [place] Jeannette [address] [facility] ing:PT Repository 02/07/2018 [id number] [facility] [address] [facility] ing:HPRAD Repository 02/07/2018/ [id number] Ambulatory BMS[facility] [place] 8 [facility] [place] [place]ository 01/27/2018 [id number] Ambulatory [place] [address] [facility] ing:HPRAD Repository 01/27/2018/ [id number] Ambulatory BMSBuilding:B [place] 8 [facility] Repository 09/19/2017 [id number] Ambulatory [facility] [place] [facility] 07/28/2017 [id number] [facility] [address] [facility] ing:OPBI Repository 07/22/2017 [id number] Ambulatory [place] Jeannette [address] [facility] ing:LAB Repository 07/19/2017/ [id number] Ambulatory BMSBuilding:B [facility] [facility] Repository 07/08/2017/ [id number] Ambulatory BMSBuilding:B [place] 8 [facility] Repository 06/29/2017 [id number] Ambulatory [place] [address] [facility] ing:LABSPEC Repository PAYERS PAYERS ENCOUNTER GUARANTOR PAYER SUBSCRIBER SOURCE 03/02/2018 GONZALES Bower Primary GONZALES [id number] Insurance:CARESOURCEP GLASSFORDDOB: [facility] Number: [id number] [id number] Repository [address]Ufy: ([phone]) Date:2015-03-31P O [phone] () [address]ATTN: [place] [address]DQ: 03/02/2018 Secondary NOT GIVENUNK Je[place] Insurance:SELF PAY [facility] Number: Effective Repository Date:2018-02-07 02/07/2018 GONZALES R Primary GONZALES R [place] [id number] Insurance:CARESOURCEP GLASSFORDDOB: [facility] Number: [id number] [id number] Repository [address]Svb: ([phone]) Date:2018-02-07P O [phone] () [address]ATTN: [place] [address]UF: 02/07/2018 Secondary NOT GIVENUNK Jeannette Insurance:SELF PAY [facility] Number: Effective Repository Date:2018-02-07 02/07/2018 GONZALES R Primary GONZALES R [place] [id number] Insurance:CARESOURCEP GLASSFORDDOB: [facility] Number: [id number] [id number] Repository [address]Xgp: ([phone]) Date:2018-01-30P O [phone] () [address]ATTN: [place] [address]OL: 02/07/2018 Secondary NOT GIVENUNK Jeannette Insurance:SELF PAY [facility] Number: Effective Repository Date:2018-02-06 01/27/2018 GONZALES R Primary GONZALES R [place] [id number] Insurance:CARESOURCEP GLASSFORDDOB: [facility] Number: [id number] [id number] Repository [address]Qzs: ([phone]) Date:2018-01-27P O [phone] () [address]ATTN: [place] [address]RK: 01/27/2018 Secondary NOT GIVENUNK Jeannette Insurance:SELF PAY [facility] Number: Effective Repository Date:2018-01-27 01/27/2018 GONZALES R Primary GONZALES R [place] [id number] Insurance:CARESOURCEP GLASSFORDDOB: [facility] Number: [id number] [id number] Repository [address]Uai: (330) Date:2018-01-27P O [phone] () [address]ATTN: CLAIMS [facility] [place] [address]SP: 01/27/2018 Secondary NOT GIVENUNK Je[place]ette Insurance:SELF PAY [facility] Number: Effective Repository Date:2018-01-27 09/19/2017 GONZALES R Primary GONZALES R [place] [id number] Insurance:CARESOURCEP GLASSFORDDOB: [facility] Number: [id number] [id number] Repository [address]Hsw: (330) Date:2017-07-19P O [phone] () [address]ATTN: [place] [address]WT: 09/19/2017 Secondary NOT GIVENUNK [place] Insurance:SELF PAY [facility] Number: Effective Repository Date:2017-07-19 07/28/2017 GONZALES R Primary GONZALES R [place] [id number] Insurance:CARESOURCEP GLASSFORDDOB: [facility] Number: [id number] [id number] Repository [address]Iyc: ([phone]) Date:2017-06-30P O [phone] () [address]ATTN: [place] [address]FE: 07/28/2017 Secondary NOT GIVENUNK [place] Insurance:SELF PAY [facility] Number: Effective Repository Date:2017-06-30 07/22/2017 GONZALES R Primary GONZALES R [place] [id number] Insurance:CARESOURCEP GLASSFORDDOB: [facility] Number: [id number] [id number] Repository [address]Gyb: ([phone]) Date:2017-07-22P O [phone] (HP) [address]ATTN: [place] [address]SD: 07/22/2017 Secondary NOT GIVENUNK [place] Insurance:SELF PAY [facility] Number: Effective Repository Date:2017-07-22 07/19/2017 GONZALES R Primary GONZALES R [place] [id number] Insurance:CARESOURCEP GLASSFORDDOB: [facility] Number: [id number] [id number] Repository [address]Keb: (330) Date:2017-07-11P O [phone] () [address]ATTN: [place] [address]DB: 07/19/2017 Secondary NOT GIVENUNK Je[place] Insurance:SELF PAY [facility] Number: Effective Repository Date:2017-07-11 07/08/2017 GONZALES R Primary GONZALES R [place] [id number] Insurance:CARESOURCEP GLASSFORDDOB: [facility] Number: [id number] [id number] Repository [address]Vmc: Date:2017-07-08P O [phone] [address]ATTN: CLAIMS -2 (HP) [place] [address]UL: 07/08/2017 Secondary NOT GIVENUNK [place] Insurance:SELF PAY [facility] Number: Effective Repository Date:2017-07-08 06/29/2017 ALEKS R Primary ALEKS R [place] [id number] Insurance:CARESOURCEP GLASSFORDDOB: [facility] Number: [id number] [id number] Repository [address]Vpg: Date:2017-06-29P O [phone] [address]ATTN: CLAIMS -2 (HP) [place] [address]IA: 06/29/2017 Secondary NOT GIVENUNK [place] Insurance:SELF PAY [facility] Number: Effective Repository Date:2017-06-29
== END ==
PROVIDERS: Family Provider Internal Medicine; PCP Internal Medicine; Referring Provider Orthopaedic Surgery; Visit Provider Orthopaedic Surgery
DX: S40.012A Contusion of left shoulder, initial encounter (principal)
CPT/HCPCS: 73020

== ENCOUNTER 2018-03-23 17:30 | Outpatient (RCR) | payer MEDICAID, SELFPAY ==
[2018-02-07 15:17] VITALS: BMI 18.9
--- NOTE | 2018-02-14 16:44 | HP.PTEVAL ---
Patient's Visit Information GONZALES HOBSON is a 52 year old F referred to Physical Therapy by America Alejandra DO with a diagnosis of L shoulder pain. Date of Evaluation: 02/14/18 Physical Therapist: Marcail Murillo, CRISTIAN, OCS, CSCS - Visit Plan Frequency: 1-2x /Week Duration: 4 Weeks Plan: weekly to start to progress HEP. Started ROM today and will progress to phase 3 strength next session if doing well. Increase freq to 3x/week if progress slows for STM, strength. - Subjective Findings: Slipped adn fell in ice end December landing on L shoulder. It now hurts to move lifting it to the side. Comfortable at rest. Sometimes it is sore at rest. Improving since it happened. X rays: OK. Now clinic said stu [facility]. Orthopedist said it was a bruise. Pain int he llast week 06/07 with movement. Reaching into cupboard and OH and putting coat on reaching back is challenging due to pain. Dresses self. Quick movements can hurt. Is R handed. Sleep is OK for the most part but cannot sleep on L side whcih is how she likes to sleep, that will make it achy. Stiffer in morning. 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 Hobbies: Enjoys walking and can do this. overall 70% better. No neck problems, no numbness or tingling in UE. - Pain L shoulder. Pain Intensity (Out of 10): 0 Pain Intensity Range: 0, 7 - Objective Posture is forward head and protracted scap. AROM is full in neck without pain. Shoulder is full but hesitant end of ext rot adn flexion/abd on L. Elbow and wrist are full and painfree. strength is 4/5 L UE except ext rot adn abd which are 4- adn painful. R side is WNL. reflexes 2/3 bi and tri. Sensation UE WNL to gross light touch. - ext rotation lag test. - drop arm. - sulcus. - c/s compression. Tender to palpation deltoid attachment L lateral shoulder minimally and L UT minimally. Clavicle and AC joint unremarkable. - Goals Goal 1:: Full aROM L shoulder without pain. Goal Time Frame: 4-6 Weeks Goal 2:: Normal sstrength adn function L shoulder 100% Goal Time Frame: 4-6 Weeks Goal 3:: I approp HEP to minimize future problems. Goal Time Frame: 4-6 Weeks - Rehabilitation Potential Physical Therapy Diagnosis: L shoulder pain, bone contusion. Rehabilitation Potential: Good - Anticipated Interventions Patient/Client Instruction: Educate patient on: Condition, Plan of Care For the Purpose of:: To decrease pain, To increase ROM, To increase tolerance to activity/condition/position, To improve ability of physical actions for home/community/work/leisure Therapeutic Exercise to Include: Strength training, Flexibilty training, Passive ROM, Active ROM For the Purpose of:: To decrease pain, To increase ROM, To improve muscle performance and motor function, To increase tolerance to activity/condition/position, To improve ability of physical actions for home/community/work/leisure Manual Therapy Techniques to Include: Soft tissue mobilization For the Purpose of:: To improve nutrient delivery to tissue Thermo therapy (hot pack): Yes For the Purpose of:: To increase oxygenation perfusion Thank you for the opportunity to evaluate your patient. For Medicare and Medicare HMO plans, please review the plan of care and approve it. It will need to be FAXED BACK to us at [phone] for Medicare purposes. For Medicare only, by signing this I certify the plan of care. Please let me know if there are questions or concerns regarding this plan of care. Physician Signature: Date:
--- NOTE | 2018-03-23 17:36 | HP.PTDCSUM ---
HP - PT D/C Summary It has been my pleasure to treat GONZALES HOBSON under orders from America Alejandra DO, for the diagnosis of L shoulder pain for a total of 3 visit(s). Discharge Date: 03/23/18 Please see the following information for a summary of their discharge status. - Subjective Subjective: Doing really well. NO real pain. No more morning pain. Sleeping well. No f/u with doctor. Activities are normal. - Pain L shoulder. Pain Intensity (Out of 10): 0 - Overall Improvement % Improvement: 100 - Objective Objective/Function: Full aROM L shoulder adn strength symmetrical with R in rotations, flexion, abduction and no pain. - Goals Goal 1:: Full aROM L shoulder without pain. Goal Progress: Goal Met Goal 2:: Normal sstrength adn function L shoulder 100% Goal Progress: Goal Met Goal 3:: I approp HEP to minimize future problems. Goal Progress: Goal Met - Plan Plan: D/C - D/C Information Discharge Comments: Doing great adn ready to be done. Will contact doctor if something goes wrong. If there are questions or concerns regarding this patient's physical therapy, please feel free to call me at [phone]. Thank you for the referral of this patient. Sincerely, Marcial Murillo, DPT, OCS, CSCS
--- OUTSIDE RECORDS SUMMARY | 2018-05-19 04:59 | XMS RPT_ITS ---
[...] Efewongbe Referring Unavailable Leanne Bruce Attending Unavailable eLanne Bruce Referring Unavailable Thuy [facility] Unavailable PROBLEMS PROBLEMS DATE TYPE CONDITION / CODE ATTENDING STATUS SOURCE 03/02/2018 Unknown M25.512 - Pain in [place], Active Jeannette left shoulder / [facility] M25.512(ICD-10) Hospital Repository 03/02/2018 Unknown S40.012D - [place], Active [place] Contusion of left [facility] shoulder, Hospital subsequent Repository encounter / S40.012D(ICD-10) 01/27/2018 Unknown G89.11 - Acute Yehuda Bruce pain due to [facility] trauma / Hospital G89.11(ICD-10) Repository 07/22/2017 Unknown Z00.00 - Yehuda Daley Encounter for [facility] medical Repository examination without abnormal findings / Z00.00(ICD-10) 06/29/2017 Unknown Z12.4 - Encounter Corey Pederson [facility] for screening for [facility] Hospital neoplasm of Repository cervix / Z12.4(ICD-10) PROCEDURES PROCEDURES No Procedure Records FoundRESULTS RESULTS INITAL EVALUATION (1) Observed: 02/15/2018 Status: F Source: [place]ANNETTE - PT 7:00 AM [facility] REPOSITORY [facility] [address] [place] [address]. [address] [place], [place] [address] Fax REHABILITATION SERVICES INITIAL EVALUATION MR#: [id number] Acct: [id number] Name: GONZALES GOULD Rep #: [id number] : 1965 52 From: Marcial Murillo DPT, HARRIS, RAJWINDER Referring Dr.: America Alejandra DO Status: REG RCR Insurance: [facility] SELF PAY INSURANCE Patient's Visit Information GONZALES GOULD is a 52 year old F referred to Physical Therapy by America Alejandra DO with a diagnosis of L shoulder pain. Date of Evaluation: 02/14/18 Physical Therapist: Marcial Murillo DPT, HARRSI, CSCS - Visit Plan Frequency: 1-2x /Week [...] achy. Stiffer in morning. 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 For Medicare only, by signing this I certify the plan of care. Please let me know if there are questions or concerns regarding this plan of care. Physician Signature: Date: <Electronically signed by Marcial Murillo DPT, OCS, CSCS> 02/15/18 0700 CC: America Alejandra DO; Lance Daley MD EBG Signed ORTHOPEDIC VISIT Observed: 02/07/2018 Status: F Source: [place] REPORT 3:43 PM [facility] REPOSITORY [facility] [address] [place], [place] [id number] OFFICE VISIT Date of Service: 02/07/18 MR#: [id number] Acct: [id number] Name: JOCEGONZALES R Rep #: [id number] : 1965 Provider: America Alejandra DO Age/Sex: 52/F [place] [facility] [place]: Signed Intake Vital Signs02/07/18 Body Mass [...] ONE VIEW Observed: 02/07/2018 Status: F Source: [place] 3:23 PM [facility] REPOSITORY [facility] Imaging Services [address] [place] [address] Shoulder One View MR#: [id number] Acct: [id number] Name: GONZALES GOULD Rep #: [id number] : 1965 F 52 From: Juan Crowe MD PCP: Lance Daley MD Status: REG CLI Study: Shoulder One View Date of Exam: 02/07/18 Exam# [id number] Ordering Dr: America Alejandra DO STUDY: X-RAY - LEFT SHOULDER REASON FOR EXAM: Pain, fall. TECHNIQUE: A single axillary view of the shoulder. COMPARISON: Radiographs 01/27/2018. FINDINGS: Unremarkable axillary view of the left shoulder. Electronically Signed: Juan Crowe MD at 15:44 EST Tel , Service support , RAD/Shoulder One View CC: America Alejandra DO; Lance Daley MD Confectionery Maker: Signed URGENT CARE VISIT Observed: 01/27/2018 Status: F Source: [place] REPORT 5:12 PM [facility] REPOSITORY [facility] [address] [place] [address] [address] [place] [address] OFFICE VISIT Date of Service: 01/27/18 MR#: [id number] Acct: [id number] Name: GONZALES GOULD Rep #: [id number] : 1965 Provider: MONE Bruce Age/Sex: 52/F Location[place] [facility] Status: Signed Intake Vital Signs01/27/18 Body Mass Index (BMI) 18.9 01/27/18 Height 5 ft 4 in Intake Visit Reasons: FELL ON ICE, L SHOULDER AND HIP PAIN Chief Complaint: Left shoulder , left hip pain after fall on ice, slight neck and belly ache Aeronautical Test Engineer Required: No Accompanied by: Self Is patient [...] on ice on the sidewalk outside of [place] by [employer]. (She was coming out of [employer] [...] Sensory Exam: no sensory deficits noted Coordination: jzoybq-[id number]-lfwr test abnormal, abnormal rapid alternating movement UE [...] 2 VIEWS Observed: 01/27/2018 Status: F Source: [place] 12:29 PM [facility] REPOSITORY [facility] Imaging Services [address] [place] [address]16 Shoulder min 2 Views MR#: [id number] Acct: [id number] Name: GONZALES GOULD Rep #: [id number] : 1965 F 52 From: Zev Hamilton DO PCP: Lance Daley MD Status: REG CLI Study: Shoulder min 2 Views Date of Exam: 01/27/18 Exam# [id number] Ordering Dr: Leanne Bruce STUDY: X-RAY - [...] Zev Hamilton DO at 16:50 EST Tel [phone], Service support , CC: MONE Bruce; Lance Daely MD Confectionery Maker: Signed SCREENING MAMM (CAD), Observed: 07/28/2017 Status: F Source: [facility] 10:45 AM [facility] REPOSITORY [facility] Imaging Services [address] [place] [address] SCREENING MAMM (CAD), BIL MR#: [id number] Acct: [id number] Name: GONZALES GOULD Rep #: [id number] : 1965 F 51 From: Alton Gonzales MD PCP: Lance Daley MD Status: REG CLI Study: SCREENING MAMM (CAD), BILAT Date of Exam: 07/28/17 Exam# [id number] Ordering Dr: Corey Pederson MD MAMMOGRAPHY - [...] delay biopsy of a clinically suspicious abnormality. [id number] Electronically Signed: Alton Gonzales MD at 12:27 EDT Tel [phone], Service support , CC: Corey Pederson MD; Lance Daley MD Confectionery Maker: Signed CBC W/DIFF, AUTOMATED Collected: 07/22/2017 Status: F Source: [place] 11:43 AM [facility] REPOSITORY TYPE CODE TESTS RESULT [...] Lymph 3.05 Performed By: #### L100.0100 #### [facility] [address] [place], [place], [address] BASIC METABOLIC Collected: 07/22/2017 Status: F Source: [place] PROFILE (BMP) 11:43 AM [facility] REPOSITORY TYPE CODE TESTS RESULT [...] 4 Performed By: #### L500.2500, L500.4100 #### [facility] [address] [place], [address] LIPID PROFILE Collected: 07/22/2017 Status: F Source: [place] 11:43 AM [facility] REPOSITORY TYPE CODE TESTS RESULT [...] 29 Performed By: #### L500.2500, L500.4100 #### [facility] [address] 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 Scheduled for a mammogram soon and last [...] 06/29/2017 Status: F Source: [place] 10:20 AM [facility] REPOSITORY Order Comment: CYTOLOGY INFORMATION: - CLINICAL INFORMATION: POSTMENOPAUSAL BLEEDING - DATE LMP/MENOPAUSE: - COLLECTION VIAL: Thin Prep Vial - MANAGER OF INTERNAL AUDIT SOURCE: CERVICAL/ENDOCERVICAL - COLLECTION TECHNIQUE: BRUSH/SPATULA Specimen Comment: [id number] Specimen Comment: No. of containers..01 ThinPrep Vial TYPE CODE TESTS RESULT OUT OF RANGE REFERENCE UNITS LAB L7400.0800 . Normal DIAGN Comment Result Comment: NEGATIVE FOR INTRAEPITHELIAL LESION AND MALIGNANCY. LAB L7400.0900 . Normal ADEQ Comment Result Comment: Satisfactory for evaluation. Endocervical and/or squamous metaplastic cells (endocervical component) are present. LAB L7400.1400 . Normal PERFORM Comment Result Comment: René Harrell, Casework Supervisor (ASCP) LAB L7400.2575 . Normal TEST METHOD [...] no HPV testing was performed. Performed at: [facility] [id number] Dump Operator: Luzma Alfonso MD, Phone: [phone] Performed By: #### L7400.0350 #### [facility] (refer to report for specific site) refer to report for address and phone number ALLERGIES ALLERGIES DATE TYPE / CODE NAME / CODE REACTION SEVERITY SOURCE 01/27/2018 Drug No Known Unknown [place] [facility] Allergy/4160 Allergies/F00 Hospital 81443(SNOMED 9495148(RXNOR Repository CT) M) ENCOUNTERS ENCOUNTERS ADMIT/DISCHARGE ACCOUNT ADMITTING ENCOUNTER LOCATION SOURCE NUMBER CLASS 03/02/2018 [id number] Ambulatory Jeannette Jeannette 8 [facility] ing:PT Repository 02/07/2018 [id number] [facility] ing:HPRAD Repository 02/07/2018/ [id number] Ambulatory BMSBuilding:B [place] 8 0 [place] Repository 01/27/2018 [id number] Ambulatory Jeannette [place] 0 [facility] ing:HPRAD Repository 01/27/2018/ [id number] Ambulatory BMSBuilding:B Je[place] 8 0 [place] Repository 09/19/2017 [id number] Ambulatory BMSBuilding:B [place] 7 [place] Repository 07/28/2017 [id number] [facility] ing:OPBI Repository 07/22/2017 [id number] Ambulatory [place] Jeannette 1 [facility] ing:LAB Repository 07/19/2017/ [id number] Ambulatory BMSBuilding:B Jeannette 8 3 [place] Repository 07/08/2017/ [id number] Ambulatory BMSBuilding:B [place] 8 7 [place] Repository 06/29/2017 [id number] Ambulatory Jeannette [place] 8 [facility] ing:LABSPEC Repository PAYERS PAYERS ENCOUNTER GUARANTOR PAYER SUBSCRIBER SOURCE 03/02/2018 GONZALES Bower Primary GONZALES [id number] Insurance:CARESOURCEP [place]FORDDOB: [facility] Number: [id number] [id number] Repository [address]Utv: (330) Date:2015-03-31P O [phone] () [address]ATTN: [place] [address]WJ: 03/02/2018 Secondary NOT GIVENUNK Jeannette Insurance:SELF PAY [facility] Number: Effective Repository Date:2018-02-07 02/07/2018 GONZALES R Primary GONZALES R [place] [id number] Insurance:CARESOURCEP GLASSFORDDOB: [facility] Number: [id number] [id number] Repository [address]Ztv: (330) Date:2018-02-07P O [phone] () [address]ATTN: [place] [address]WM: 02/07/2018 Secondary NOT GIVENUNK Jeannette Insurance:SELF PAY [facility] Number: Effective Repository Date:2018-02-07 02/07/2018 GONZALES R Primary GONZALES R [place] [id number] Insurance:CARESOURCEP GLASSFORDDOB: [facility] Number: [id number] [id number] Repository [address]Buv: ([phone]) Date:2018-01-30P O [phone] () [address]ATTN: [place] [address]CU: 02/07/2018 Secondary NOT GIVENUNK Jeannette Insurance:SELF PAY [facility] Number: Effective Repository Date:2018-02-06 01/27/2018 GONZALES R Primary GONZALES R Jeann[place] [id number] Insurance:CARESOURCEP GLASSFORDDOB: [facility] Number: [id number] [id number] Repository [address]Qzg: (330) Date:2018-01-27P O [phone] () [address]ATTN: [place] [address]RT: 01/27/2018 Secondary NOT GIVENUNK Jeannette Insurance:SELF PAY [facility] Number: Effective Repository Date:2018-01-27 01/27/2018 GONZALES R Primary GONZALES R Jeann[place] [id number] Insurance:CARESOURCEP GLASSFORDDOB: [facility] Number: [id number] [id number] Repository [address]Ilz: (330) Date:2018-01-27P O [phone] () [address]ATTN: [place]S [place] [address]QK: 01/27/2018 Secondary NOT GIVENUNK Jeannette Insurance:SELF PAY [facility] Number: Effective Repository Date:2018-01-27 09/19/2017 GONZALES R Primary GONZALES R Jeannette [id number] Insurance:CARESOURCEP GLASSFORDDOB: [facility] Number: [id number] [id number] Repository [address]Rjs: (330) Date:2017-07-19P O [phone] () [address]ATTN: [place] [address]LC: 09/19/2017 Secondary NOT GIVENUNK Jeannette Insurance:SELF PAY [facility] Number: Effective Repository Date:2017-07-19 07/28/2017 GONZALES R Primary GONZALES R Jeannette [id number] Insurance:CARESOURCEP GLASSFORDDOB: [facility] Number: [id number] [id number] Repository [address]Doo: (330) Date:2017-06-30P O [phone] () [address]ATTN: [place] [address]QE: 07/28/2017 Secondary NOT GIVENUNK [place] Insurance:SELF PAY [facility] Number: Effective Repository Date:2017-06-30 07/22/2017 GONZALES R Primary GONZALES R [place] [id number] Insurance:CARESOURCEP GLASSFORDDOB: [facility] Number: [id number] [id number] Repository [address]Pwz: (330) Date:2017-07-22P O [phone] (HP) [address]ATTN: [place] [address]XI: 07/22/2017 Secondary NOT GIVENUNK Jeannette Insurance:SELF PAY [facility] Number: Effective Repository Date:2017-07-22 07/19/2017 GOZNALES R Primary GONZALES R Jeannette [id number] Insurance:CARESOURCEP GLASSFORDDOB: [facility] Number: [id number] [id number] Repository [address]Vwn: (330) Date:2017-07-11P O [phone] () [address]ATTN: [place] [address]GW: 07/19/2017 Secondary NOT GIVENUNK Jeannette Insurance:SELF PAY [facility] Number: Effective Repository Date:2017-07-11 07/08/2017 GONZALES R Primary GONZALES R Jeannette [id number] Insurance:CARESOURCEP GLASSFORDDOB: [facility] Number: [id number] [id number] Repository [address]Cwk: Date:2017-07-08P O [phone] [address]ATTN: CLAIMS -2 (HP) [place] [address]JA: 07/08/2017 Secondary NOT GIVENUNK [place] Insurance:SELF PAY [facility] Number: Effective Repository Date:2017-07-08 06/29/2017 ALEKS R Primary ALEKS R Jeannette [id number] Insurance:CARESOURCEP GLASSFORDDOB: [facility] Number: [id number] [id number] Repository [address]Nah: Date:2017-06-29P O [phone]~330 [address]ATTN: CLAIMS -2 (HP) [place] [address]JN: 06/29/2017 Secondary NOT GIVENUNK [place] Insurance:SELF PAY [facility]: Effective Repository Date:2017-06-29
== END 2018-03-23 19:00 | disposition home or self-care (01) ==
LOC: PT 17:30
PROVIDERS: Family Provider Internal Medicine; PCP Internal Medicine; Referring Provider Orthopaedic Surgery; Visit Provider Orthopaedic Surgery
DX: M25.512 Pain in left shoulder (principal); S40.012D Contusion of left shoulder, subsequent encounter
CPT/HCPCS: 97110; 97162; 97530

== ENCOUNTER → 2018-08-30 | Outpatient (CLI) | payer MEDICAID, SELFPAY ==
[2018-02-07 15:17] VITALS: BMI 18.9
--- NOTE | 2018-08-30 16:07 | BI_ITS ---
MAMMOGRAPHY - BILATERAL SCREENING REASON FOR EXAM: Female, 52 years old. Routine annual screening examination. PERTINENT HISTORY: Aunt with breast cancer. TECHNIQUE: Digital bilateral breast rashid (3D mammographic acquisition) in the CC and MLO projections. 2-D mediolateral oblique (MLO) and craniocaudad (CC) views of both breasts were obtained. CAD: Full Field Digital Mammography with Computer Added Detection was performed. COMPARISON: Comparison is made with prior study dated July 28, 2017 and November 06, 2012. FINDINGS: Breast Composition: The breasts are heterogeneously dense, which may obscure small masses. There are no dominant masses or suspicious calcifications. No other significant abnormalities are identified. There has been no significant change since the prior study. BI/SCREEN MAMM (CAD) W/RASHID BILAT IMPRESSION: Stable bilateral screening mammogram. Yearly follow-up mammogram recommended. (A) ASSESSMENT CATEGORY: BIRADS Category 1: Negative. A letter regarding these results will be sent to the patient by the facility within 30 days. Approximately 10% of breast cancers are not detected by mammography. A normal mammogram should not delay biopsy of a clinically suspicious abnormality. [id number] Electronically Signed: Alton Gonzales, at 8:50 EDT , Service support ,
== END | disposition home or self-care (01) ==
LOC: OPBI 16:05
PROVIDERS: Family Provider Internal Medicine; PCP Internal Medicine; Referring Provider Obstetrics & Gynecology; Visit Provider Obstetrics & Gynecology
DX: Z12.31 Encounter for screening mammogram for malignant neoplasm of breast (principal)
CPT/HCPCS: 77063; 77067

== ENCOUNTER → 2018-09-07 | Outpatient (CLI) | payer MEDICAID, SELFPAY ==
[2018-02-07 15:17] VITALS: BMI 18.9
[2018-09-15 12:37] LABS: HPV Reflexed? NOT INDICATED
== END | disposition home or self-care (01) ==
LOC: LABSPEC 16:28
PROVIDERS: PCP Internal Medicine; Visit Provider Obstetrics & Gynecology
DX: R30.0 Dysuria (principal); Z12.4 Encounter for screening for malignant neoplasm of cervix
CPT/HCPCS: 87086; 87088; 88175; G0145

== ENCOUNTER 2018-11-23 10:02 | Day surgery (SDC) | payer MEDICAID, SELFPAY ==
[2018-11-09 15:08] VITALS: BMI 18.9
[2018-11-23] VITALS (8 sets, daily range): BP systolic 125–144; BP diastolic 68–89; PULSE 78–82; RESP 14–18; TEMP 36.4–36.6; O2SAT 93–100; BMI 17.4
--- NOTE | 2018-11-23 10:19 | HP.PCM_ITS ---
History of Present Illness Date of Admission: 11/23/18 The patient is a 53 year old F presents for screening colonoscopy. Patient has never had a previous colonoscopy. Denies any family history of colon cancer. Patient denies any chronic abdominal pain/nausea/vomiting. Patient states she has bowel movements daily denies any blood. Past Medical/Surgical History - Planned Operation Planned Operative Procedure/s: colonoscopy Date of Operative Procedure: 11/23/18 Permit Signed: No S.O.S: No Is This Patient Having a Total Joint: No - Previous Hospitalizations/Surgeries HX Hospitalizations: No HX of Surgeries: appendectomy Any Problems With Anesthesia: No You/Your Family Experience Fever (Hyperthermia) With Anes: No Cholinesterase deficiency: No - Cardiovascular Hx Chest Pain within Last 2 months: No Hx of Irregular Heartbeat and/or Afib: No Hx Heart Attack: No Hx Congestive Heart Failure: No Hx Rheumatic Fever: No Hx Hypertension: No Hx Internal Defibrillator: No Hx Pacemaker: No Hx Cardiac Catheterization: No Hx Cardiac Surgery/Stents/Etc.: No Hx Stress Test: Yes - yrs ago HX Edema: No Hx Pain in Legs when Walking/Leg Cramps: No - Respiratory Chronic Cough: No HX of Shortness of Breath: No - denies Hoarseness: No Hx Chronic Obstructive Pulmonary Disease (COPD): No Hx Asthma: No Hx Emphysema: No Hx Sleep Apnea: No Hx Oxygen Use at Home: No Hx Respiratory Tract Infection/Cold (presently): No Do You Snore Loudly (louder than talking or can be heard): No Do You Often Feel Tired/ Fatigued/ Sleepy Dring Daytime?: No Has Anyone Observed You Stop Breathing During Sleep?: No Result (for STOP score): Negative Hx Smoking: Yes - quit recently Smoking Status: Former smoker - Gastrointestinal Hx Gastroesophageal Reflux: No Hx Gastrointestinal Disorders: No Hx Gastrointestinal Bleed: No Hx Ulcer: No Hx Hiatal Hernia: No Difficulty Chewing/Swallowing: No Recent Onset of Swallowing Problems: No Special diet followed at home: No Hx Unplanned Weight Loss of 20#: No HX Unplanned Weight Gain of 20#: No - Neurological Hx Seizures: No HX Syncope/Blackout Spells/Unconsciousness: No Hx CVA/Stroke: No Hx Transient Ischemic Attacks (TIA): No Hx Multiple Sclerosis: No Hx Parkinson's Disease: No Hx Head/Neck Injury: No Hx Headaches: No Hx Back Injury/Pain: No Recent Onset of Speech Difficulty: No Restless Legs: No Does patient have nerve stimulator: No Patient instructed to have device shut off: No Rep notified?: No - Blood Disorder Hx Leukemia: No Bleeding Tendencies: No Hx Deep Vein Thrombosis: No Hx High Cholesterol: No Blood Transmitted Disease: No Hx Hepatitis: No Hx Cirrhosis: No Hx Anemia: No Hx Blood Disorders: No - Reproduction : No Is Patient Lactating: No Hx Hysterectomy: No Hx Tubal Ligation: No Are You Post Menopause: Yes - Genitourinary Hx Renal Disease: No - Musculoskeletal Hx Arthritis: No Hx Rheumatoid Arthritis: No Hx Gout: No Recent Onset of an Orthopedic Problem: No - Endocrine Hx Diabetes: No Thyroid Disease: No Hx Steroid Therapy: No - Psycho/Social Hx Substance Use: No Hx Alcohol Use: No Hx Anxiety: No Hx Depression: No Mental Illness: No Hx Dementia: No - Miscellaneous Hx Cancer: No Recent Exposure to Contagious Disease: No Active MRSA: No Hx of C-Diff: No Any Loose Teeth: No Allergies No Known Allergies Allergy (Unverified 11/23/18 10:07) - Discharge Is Pt Admitted From a [facility], or a Correction: No Who Could Help: friend After D/C, Where Do you Plan to Go: Return Home - Physical Exam General: Alert, Oriented x3, Cooperative, No apparent distress HEENT: Atraumatic Lungs: Normal air movement Cardiovascular: Regular rate Abdomen: Soft, Non Tender, Non-Distended Extremities: No clubbing, No cyanosis, No edema Neurological: Cranial nerves II-XII grossly intact Psych/Mental Status: Normal Affect Body Mass Index (BMI) 18.9 Assessment/Plan All Active Problems (Last Reviewed 01/27/18 @ 11:57 by Ana Blair) Contusion of left shoulder (Acute) Carpal tunnel syndrome (Acute) Heart murmur (Acute) 53-year-old female for screening for colon cancer Surgery Risks - Colonoscopy I discussed with the patient the risks of the procedure: Yes Risks Include but are not Limited To: Risks include but are not limited to: Bleeding, perforation requiring further surgery, inability to complete colonoscopy requiring barium enema. Patient had no further questions at this time.
[2018-11-23] MEDS: Lactated Ringers 1,000 ML 100 ML IV (10:27)
--- NOTE | 2018-11-23 11:00 | COLBX_PTH ---
PATIENT: GONZALES HOBSON LOC: EN U#:[id number] AGE/SX: 53/F ROOM: RE11/23/[address]: Dr. Tahmina Wayne MD : 1965 BED: DIS: 11/23/2018 SPEC #: [id number] RECD: 11/23/18 11:47 STATUS: LUCY ANU #: [id number] JOSY: 11/23/18 11:[address]: Tahmina Wayne DEPT: SURGICAL PATHOLOGY RECD BY: Rodolfo George ENTERED: 11/23/18 13:17 SP TYPE: COLON BX OTHR DR: Dr. Lance Daley MD Tissues: Sigmoid colon biopsy Procedures: Surgery Specimen Level IV HEADER OPERATION: Colonoscopy - open access (MAC) PRE-OP DIAGNOSIS: Screening TISSUE SUBMITTED: Sigmoid polyp MICROSCOPIC DIAGNOSIS Sigmoid colon polyp, biopsy: Tubular adenoma. AM:trisha 11/24/18 COMMENT Case has been reviewed in consultation with Dr. Woodall who concurs with the above diagnosis. IDC:SJ MICROSCOPIC DESCRIPTION Slides are reviewed. GROSS DESCRIPTION Received in fixative is one container labeled with the patient's name and designated sigmoid polyp. The specimen consists of a keith-pink polyp measuring 0.8 x 0.6 x 0.3 cm. The entire specimen is submitted in one cassette. / GRAZYNA:trisha 11/23/18 TC:5 [facility]: [id number]
--- NOTE | 2018-11-23 11:28 | OP.ENDO_ITS ---
11/23/2018 Lance Daley MD [address] [place] [address] [place] [address] Re : Colonoscopy procedure for [facility] Dear Dr. Daley This procedure was performed on October. My impressions and recommendations are as follows: Impressions : - One 6 mm polyp in the sigmoid colon, removed with a hot snare. Resected and retrieved. - Internal hemorrhoids. - The examination was otherwise normal. Recommendations : - Discharge patient to home. - Resume previous diet. - Continue present medications. - Await pathology results. - Repeat colonoscopy in 3 - 5 years for surveillance based on pathology results. My findings are described in the full procedure note, which is enclosed. If I can be of further assistance, please feel free to contact me at Doctor phone number(s): , Work: . Sincerely, MD Tahmina Rowan MD 11/23/2018 11:28:21 AM This report has been signed electronically.
== END 2018-11-23 12:23 | disposition home or self-care (01) ==
LOC: EN 10:05 → AC 10:06
PROVIDERS: Family Provider Internal Medicine; PCP Internal Medicine; Referring Provider Internal Medicine; Visit Provider Surgery
PROC: 0DJD8ZZ Inspection of Lower Intestinal Tract, Via Natural or Artificial Opening Endoscopic (ICD-10-PCS; CPT 45378; principal; 2018-11-23 10:55)
DX: Z12.11 Encounter for screening for malignant neoplasm of colon (principal); D12.5 Benign neoplasm of sigmoid colon; K64.0 First degree hemorrhoids; Z87.891 Personal history of nicotine dependence
CPT/HCPCS: 45380; 88305; J7120

== ENCOUNTER → 2020-08-28 15:22 | Outpatient (CLI) | payer SELFPAY ==
[2018-11-23 10:17] VITALS: BMI 17.4
--- NOTE | 2020-08-28 15:26 | BI_ITS ---
MAMMOGRAPHY - BILATERAL SCREENING REASON FOR EXAM: Female, 54 years old. Routine annual screening examination. PERTINENT HISTORY: Aunt with breast cancer. TECHNIQUE: Digital bilateral breast rashid (3D mammographic acquisition) in the CC and MLO projections. 2-D mediolateral oblique (MLO) and craniocaudad (CC) views of both breasts were obtained. CAD: Full Field Digital Mammography with Computer Added Detection was performed. COMPARISON: Comparison is made with prior study dated 08/30/2018 and 07/28/2017. FINDINGS: Breast Composition: The breasts are heterogeneously dense, which may obscure small masses. There are no dominant masses or suspicious calcifications. No other significant abnormalities are identified. There has been no significant change since the prior study. BI/SCRN MAMM (CAD)W/RASHID BILAT IMPRESSION: Stable bilateral screening mammogram. Yearly follow-up mammogram recommended. (A) ASSESSMENT CATEGORY: BIRADS Category 1: Negative. A letter regarding these results will be sent to the patient by the facility within 30 days. Approximately 10% of breast cancers are not detected by mammography. A normal mammogram should not delay biopsy of a clinically suspicious abnormality. [id number] Electronically Signed: Alton Gonzales MD at 8:05 EDT , Service support ,
== END ==
PROVIDERS: PCP Internal Medicine; Referring Provider Obstetrics & Gynecology; Visit Provider Obstetrics & Gynecology
DX: Z12.31 Encounter for screening mammogram for malignant neoplasm of breast (principal)
CPT/HCPCS: 77063; 77067

== ENCOUNTER → 2022-03-05 | Outpatient (CLI) | payer SELFPAY ==
[2022-03-11 21:51] LABS: HPV APTIMA, High Risk Negative (Negative)
== END | disposition home or self-care (01) ==
PROVIDERS: PCP Internal Medicine; Visit Provider Student in an Organized Health Care Education/Training Program
DX: Z12.4 Encounter for screening for malignant neoplasm of cervix (principal)
CPT/HCPCS: 87624; 88175; G0145

== ENCOUNTER → 2022-03-12 | Outpatient (CLI) | payer SELFPAY ==
--- NOTE | 2022-03-12 12:21 | BI_ITS ---
MAMMOGRAPHY - BILATERAL SCREENING REASON FOR EXAM: Female, 56 years old. Routine annual screening examination. PERTINENT HISTORY: Aunt with breast cancer. TECHNIQUE: Digital bilateral breast rashid (3D mammographic acquisition) in the CC and MLO projections. 2-D mediolateral oblique (MLO) and craniocaudad (CC) views of both breasts were obtained. CAD: Full Field Digital Mammography with Computer Added Detection was performed. COMPARISON: Comparison is made with prior study dated 08/28/2020 and 08/30/2018. FINDINGS: Breast Composition: The breasts are extremely dense, which lowers the sensitivity of mammography. There are no dominant masses or suspicious calcifications. No other significant abnormalities are identified. There has been no significant change since the prior study. BI/SCRN MAMM (CAD)W/RASHID BILAT IMPRESSION: Stable bilateral screening mammogram. Yearly follow-up mammogram recommended. (A) ASSESSMENT CATEGORY: BIRADS Category 1: Negative. A letter regarding these results will be sent to the patient by the facility within 30 days. Approximately 10% of breast cancers are not detected by mammography. A normal mammogram should not delay biopsy of a clinically suspicious abnormality. [id number] Electronically Signed: Alton Gonzales MD at 13:33 EST ,
--- NOTE | 2022-03-12 12:21 | US_ITS ---
STUDY: SUPERFICIAL ULTRASOUND - PALPABLE LUMP IN THE LEFT GROIN. REASON FOR EXAM: Female, 56 years old. LUMP -- LEFT GROIN TECHNIQUE: A superficial ultrasound was performed with real-time and static nava-scale imaging. COMPARISON: None. FINDINGS: There is a 2.5 cm x 2 cm x 1.4 cm heterogeneous soft tissue density which is reducible with compression. This is suggestive of a left inguinal hernia. Clinical correlation is recommended. Incidental note is made of a 6 mm x 6 mm x 2 mm normal-appearing lymph node. US/Ext Non Vasc Limited/Soft Tiss IMPRESSION: The pathologic amount responded to 2.5 cm x 2 cm 1.4 cm heterogeneous soft tissue density which is reducible with compression. This is suggestive of a left inguinal hernia. Electronically Signed: Alton Gonzales MD at 14:52 EST ,
== END | disposition home or self-care (01) ==
LOC: OPBI 12:18
PROVIDERS: PCP Internal Medicine; Referring Provider Student in an Organized Health Care Education/Training Program; Visit Provider Student in an Organized Health Care Education/Training Program
DX: Z12.31 Encounter for screening mammogram for malignant neoplasm of breast (principal); R19.00 Intra-abdominal and pelvic swelling, mass and lump, unspecified site
CPT/HCPCS: 76882; 77063; 77067

== ENCOUNTER 2022-04-02 12:07 | Day surgery (SDC) | payer SELFPAY ==
[2022-04-02] MEDS: Lactated Ringers 1,000 ML 15 ML IV (12:15)
--- NOTE | 2022-04-02 12:23 | EKG12_ITS ---
Test Reason : PREOP Blood Pressure : / mmHG Vent. Rate : 090 BPM Atrial Rate : 090 BPM P-R Int : 120 ms QRS Dur : 064 ms QT Int : 338 ms P-R-T Axes : 071 071 085 degrees QTc Int : 413 ms Normal sinus rhythm Normal ECG When compared with ECG of 20-OCT-2002 08:58, Premature ventricular complexes are no longer Present Confirmed by CLARITZA GARCÍA, NORMA ([id number]), copy editor MANUEL ESCALANTE ([id number]) on 04/06/2022 9:00:07 AM Referred By: Tahmina Wayne Confirmed By:NORMA JERRY MD
[2022-04-02 12:34] VITALS: BP 130/83; PULSE 79; RESP 12; TEMP 36.7; O2SAT 97; BMI 16.5
[2022-04-02 12:51] LABS: Hematocrit 42.2 % (37-47); Hemoglobin 14.2 g/dL (12.0-15.0); Mean Corp Hgb Conc 33.6 g/dL (32-36); Mean Corpuscular Hgb 31.1 pg (27.0-32.0); Mean Corpuscular Volume 92.3 fL (81-99); Mean Platelet Vol. 8.8 fl (6.2-12.0); Platelet Count 341 K/mm3 (150-450); RBC Distribution Width CV 13.1 % (11.6-14.6); RBC Distribution Width SD 44.5 fl (35.1-43.9); Red Blood Count 4.57 M/mm3 (4.2-5.4); White Blood Count 10.8 K/mm3 (4.4-11.0)
--- NOTE | 2022-04-02 13:49 | HP.PCM_ITS ---
History and Physical Date of Admission: 04/02/22 Date of Service:? 03/22/22 MR#: [id number] Acct: [id number] Name:? GONZALES HOBSON Rep #: [id number] : 1965 ? ? Provider: Dr. Tahmina Wayne MD Age/Sex:? 56/F ? ? Location: [facility] Status: Signed Intake Vital Signs ? 03/22/2309:02 Height 5 ft 5 in Weight: 107 lb BMI 17.8 BP 145/91 H Blood Pressure Location Rt brachial Position Sitting Respiration 18 Intake Visit Reasons:?LEFT INGUINAL HERNIA Chief Complaint: left? inguinal hernia Drug And Alcohol Counsellor Required: No Is patient in pain?: No Allergies No Known Allergies Allergy (Unverified 03/22/22 10:01) PFSH Medical History?(Updated 03/23/22 @ 21:[address] Tahmina Wayne MD) Carpal tunnel syndrome Heart murmur Reducible left inguinal hernia Seasonal allergies Surgical History? History of appendectomy Family History? Mother Myocardial infarction,? Onset Age: 40 Anxiety and depressionFather CVA (cerebral vascular accident)Sister Thyroid disorderAunt Breast cancer Social History?(Updated 02/07/18 @ 15:[address] America Alejandra, ) Smoking Status:? Former smoker Tobacco: How many years used:? 20 alcohol intake:? never substance use type:? does not use what type of physical activity do you participate in:? walking frequency:? 1-2 times per week HPI HPI HPI: 56-year-old female presents due to left groin hernia.? Patient states she has noticed this for more than a year probably in 2020.? Patient states she is noticed a bulge denies any pain at this time.? Patient has not tried to reduce herself however it does self reduce occasionally.? She had an ultrasound which called likely left inguinal hernia as with compression of this area did reduce. ROS General General: No weight change, appetite, fatigue, colon cancer, breast cancer or weakness HEENT HEENT: No difficulty swallowing, eye injury, eye surgery, swollen glands or hoarseness Endo Endocrine: No thyroid disease, diabetes mellitus, thyroid cancer, Hair loss, heat intolerance or cold intolerance Skin Skin: No rash or changing moles Musc Musculoskeletal: No back problems, arthritis, rheumatoid arthritis, gout or joint pain Cardio Cardiovascular: Yes murmur; No pacemaker, heart disease, atrial fibrillation, high blood pressure, heart attack, heart stent, palpitations, shortness of breat with exertion or chest pain Psych Psychiatric: No depression, anxiety or hearing voices Resp Respiratory: No shortness of breath, No sleep apnea, No cough, No COPD, No asthma, No emphysema and No wheezing Gastro Gastrointestinal: No abdominal pain, No nausea or vomiting, No diarrhea, No constipation, No blood in stool, Yes acid reflux, No hemorrhoids, No ulcers, No gallbladder problem and No black,tarry stools Vahid Hematologic: No blood thinners, No blood disorders, No bleeding, No anemia and No blood clots Neuro Neurologic: No numbness, No tingling and No weakness Exam Const General: cooperative, healthy appearing and no acute distress HENMT Head: normal to inspection Resp Effort & Inspection: normal respiratory effort Cardio Rate: regular rate GI Inspection: non-distended Palpation: soft, no guarding, hernia (Left inguinal hernia likely indirect- reducible) and nontender Skin General: no rashes or lesions noted Neuro General: patient oriented x3 Extrem General: no clubbing, cyanosis or edema Psych Affect: normal affect Assessment and Plan Assessment and Plan (1) Reducible left inguinal hernia: ?Status:?Acute Plan Plan to do a left inguinal herniorrhaphy with mesh. Reviewed the procedure with the patient including the risks, including but not limited to infection, bleeding, paresthesia, chronic pain, injury to small bowel, plan to ligate round ligament, and recurrence. All questions were answered. Tahmina Wayne M.D. Pager: [phone] [facility] [address] [place] [address], [address] [place] [address] Office: [phone] Coding Level of Care Code Off vis,new,level 3 Diagnoses Reducible left inguinal hernia? K40.90 03/26/22 1208 <Electronically signed by Tahmina Wayne MD> Date Tahmina Wayne MD
[2022-04-02] MEDS: Cefazolin 2 GM in 0.9% Normal Saline 100 ML IV (14:20)
[2022-04-02] MEDS: Bupivacaine 0.5% PF 10 ML VIAL (14:41)
[2022-04-02] MEDS: Lidocaine 1% /Epi 1:100 (20ml) 20 ML Vial (14:41)
--- NOTE | 2022-04-02 15:36 | PCM.OPRPT ---
Report of Operation Date of Procedure: 04/02/22 Pre-Operative Diagnosis: Left inguinal hernia Post-Operative Diagnosis: Left inguinal indirect & direct Surgery/Procedure Performed:: Open left inguinal hernia repair with mesh Surgeon: Tahmina Wayne Type of Anesthesia: MAC/Supplemental Anesthesiologist: Stevo Cartagena Special Medications: Ancef 2 g IV x1 Specimen's removed: None Estimated Blood Loss (mL): < 10 cc Description of Procedure: Indications: This is a 56-year-old female who developed left inguinal hernia. Left inguinal hernia repair with mesh was elected. Description procedure: The patient was taken to the operating room. A timeout was completed verifying correct patient, procedure, site, positioning, and special equipment prior to beginning procedure. MAC anesthesia was induced. The left groin was prepped and draped in usual sterile fashion. An incision was marked in the natural skin crease and planned in the near the pubic tubercle. A field block was produced by raising skin wheals along the proposed incision in a skin wound was raised about 1 cm medial to the anterior superior iliac spine using 0.5% Marcaine for a total of 10 mL. Skin incision was made with the knife and deepened through the Elizabeth and Camper's fascia with electrocautery until the aponeurosis of the external oblique was a identified. This was cleaned and the external ring exposed. Hemostasis was achieved in the wound. An incision was made in the midpoint of the external oblique aponeurosis in the direction of its fibers. The ilioinguinal nerve was identified and protected throughout the dissection. Flaps of the external oblique were developed cephalad and inferiorly. Indirect hernia was identified and reduced back into the abdomen. The floor was noted to be weak and with no gross defect. A finger was passed into the peritoneal cavity and the floor of the inguinal canal was assessed and found to be adequate. The femoral canal was palpated and no hernia identified. A Bard keyhole mesh was cut to the appropriate size?2-0 Prolene was used to suture the keyhole shot.. Beginning at the pubic tubercle, the mesh was sutured to the inguinal ligament inferiorly and the conjoined tendon superiorly using interrupted sutures of 2-0 Prolene. Care was taken to assure the mesh was placed in the last fashion to avoid excess tension and no neurovascular structures were caught in the repair. Laterally the tails of mesh were crossed and sutured together. Hemostasis was again checked. Area was irrigated with saline. External oblique aponeurosis was closed running suture of 3-0 Vicryl, taking care not to catch the ilioinguinal nerve in the suture line. Elizabeth's fascia was closed with interrupted sutures of 3-0 Vicryl. Skin was closed running subcuticular suture of 4-0 Monocryl with Steri-Strips gauze and Tegaderm. Patient tolerated the procedure well and sent to the postanesthesia care in stable condition. Complications None
--- NOTE | 2022-04-02 15:40 | DCINST_ITS ---
Discharge Instructions Diet Discharge Diet: Light diet - advance as tolerated Activity Discharge Activity: May Not Drive (while taking narcotic pain medications.) May shower in (days): 1 Lifting Restrictions: no lifting >20 lbs x 2 wks, no strenuous exercise for 4 wks Dressing / Incision Call your doctor if your incision/area has: Continuous Slow Oozing, Sudden Increased Bleeding, Increased Pain/ Swelling, Increased Redness, Foul Smelling Discharge and Swelling at the incision site Call your doctor if you observe: Fever of 101 or Higher Remove Dressing in: 2 days Cleanse incision/area with: Soap & Water Additional Dressing/Incision Instructions:: Steri-Strips will fall off in 7 to 10 days, if they do not fall off okay to remove after 10 days. Follow Up Care Please Follow Up With: Tahmina Wayne MD When: Call the office for a follow-up appointment 2 weeks; after 5 PM and on the weekends call [phone] with any concerns. Test Results: Test results from this visit will be discussed in further detail at your follow- up appointment, if applicable. Discharge Plan Admission Attending Provider: Tahmina Wayne Primary Care Provider: Lance Daley Instructions Additional Instructions / Restrictions: Okay to take ibuprofen 400-600 mg PO q6hr PRN and Tylenol 650 mg p.o. every 6 as needed with the tramadol Take all pain meds with food. Tramadol can cause constipation recommend taking daily stool softener (i.e. Colace/docusate) while taking the pain meds. Recommend starting some MiraLAX in 1 to 2 days if no bowel movement. If still no bowel movement the following day recommend taking Dulcolax laxative 5 mg tabs x2 if no results after 3 hours take another 2. Discharge Orders/Prescriptions Prescriptions: New tramadol 50 mg tablet 50 - 100 mg PO Q6H PRN (Reason: pain) Qty: 14 0RF Continued calcium 600 mg Capsule 600 mg PO DAILY multivitamin Capsule 1 cap PO DAILY cholecalciferol (vitamin D3) [Vitamin D3] 25 mcg (1,000 unit) Tablet,Chewable 25 mcg PO DAILY Hair, Skin and Nails (biotin) 10,000 mcg Tablet,Chewable 10,000 mcg PO DAILY Referrals / Follow Up: Lance Daley MD [Primary Care Provider] - Disposition Disposition (needs filled in before D/C Order can be placed): Home, Self Care
[2022-04-02 15:55] VITALS: BP 100/55; BP 130/83; PULSE 77; RESP 16; TEMP 36.4; O2SAT 100
[2022-04-02 16:00] VITALS: BP 124/75; BP 130/83; PULSE 80; RESP 16; O2SAT 100
[2022-04-02 16:05] VITALS: BP 115/73; BP 130/83; PULSE 68; RESP 16; O2SAT 100
[2022-04-02 16:10] VITALS: BP 125/77; BP 130/83; PULSE 66; RESP 16; TEMP 36.4; O2SAT 100
[2022-04-02 17:10] VITALS: BP 130/83; BP 131/75; PULSE 87; RESP 16; TEMP 36.5; O2SAT 97
== END 2022-04-02 17:43 | disposition home or self-care (01) ==
LOC: SDC 12:12 → AC 12:13
PROVIDERS: Anesthesiology; PCP Internal Medicine; Referring Provider Surgery; Visit Provider Surgery
PROC: (CPT 49505; principal; 2022-04-02 13:15)
DX: K40.90 Unilateral inguinal hernia, without obstruction or gangrene, not specified as recurrent (principal); Z87.891 Personal history of nicotine dependence
CPT/HCPCS: 49505; 00830; 85027; 93005; J7120; C1781; J2405

== ENCOUNTER 2022-05-12 22:01 | Inpatient (IN) | payer MEDICAID, SELFPAY ==
[2022-05-12] VITALS (7 sets, daily range): BP systolic 74–118; BP diastolic 41–94; PULSE 61–99; RESP 16–44; TEMP 30.4–36.3; O2SAT 82–92; BMI 20.5
--- NOTE | 2022-05-12 22:11 | CT_ITS ---
INDICATION: confusion EXAMINATION: CT BRAIN - CT Head or Brain W/O Contrast Injection TECHNIQUE: Multiple axial images were obtained of the head without intravenous contrast. A radiation dose optimization technique was used for this scan. IV Contrast dosage and agent: None. COMPARISON: FINDINGS: BRAIN: No acute bleed. No edema. Castro-white matter differentiation is maintained. VENTRICLES AND SULCI: Not dilated. EXTRA-AXIAL: No hemorrhage, fluid collection, or mass. CALVARIUM / SKULL BASE: Unremarkable. FACE/SINUSES: Unremarkable. SOFT TISSUES: Unremarkable. CT/Brain/Head without Contrast IMPRESSION: No acute abnormality. CT angiogram and/or MRI may be helpful to evaluate for acute infarct as clinically indicated. Electronically Signed: Brittnee Lorenz MD at 23:52 EDT ,
--- NOTE | 2022-05-12 22:12 | EKG12_ITS ---
Test Reason : DYSRHYTHMIA Blood Pressure : / mmHG Vent. Rate : 098 BPM Atrial Rate : 098 BPM P-R Int : 128 ms QRS Dur : 066 ms QT Int : 378 ms P-R-T Axes : 038 044 165 degrees QTc Int : 482 ms Normal sinus rhythm Septal infarct , age undetermined Abnormal ECG Confirmed by CLAUS GARCÍA, SHANNON ([id number]), society editor MANUEL ESCALANTE ([id number]) on 05/14/2022 7:01:31 AM Referred By: IVETH Confirmed By:BRAYAN DEVLIN MD
--- NOTE | 2022-05-12 22:12 | RAD_ITS ---
INDICATION: confusion altered LOC, weak, cold, clammy, hypotensive. pt screaming help me continuously, but is not answering questions. unable to get a temp or pulse ox due to patient being so cold EXAMINATION/TECHNIQUE: X-RAY - XR Chest 1 View AP portable. 11:19 PM. COMPARISON: None. FINDINGS: LINES/DEVICES: Central venous catheter from right IJ approach with tip in the region of the upper right atrium. LUNGS: Alveolar infiltrates in the lung bases greater on the right. No pneumothorax. MEDIASTINUM: Unremarkable. CARDIAC SILHOUETTE: Not enlarged. BONES AND SOFT TISSUES: No acute abnormalities. RAD/Chest 1 View (Portable) IMPRESSION: Central venous catheter as described. Bilateral infiltrates consistent with pneumonia. Electronically Signed: Brittnee Lorenz MD at 0:16 EDT ,
--- NOTE | 2022-05-12 22:15 | EX.ED.CRITCA ---
HPI History of Present Illness Chief Complaint: Alt LOC Informant: EMS Narrative Narrative: Patient presents by EMS from home. Patient unresponsive therefore information from EMS. Call out was for weakness, EMS arrival patient was found on the ground kitchen floor. Reported from family she reported dizziness went to the ground there was no falls. Patient was hypotensive tachycardic on their arrival blood glucose 134. EJ access left side fluids started. Unable to get a pulse ox. Patient felt cool. Noted patient status post left inguinal hernia repair April 02 nearly 6 weeks ago. From records no significant past medical history. Nursing in the room, discussion patient verbal with yelling help. [facility] Medical History Carpal tunnel syndrome Heart murmur Heartburn History of irregular heartbeat History of stress test Leg cramps Post-menopausal Reducible left inguinal hernia Seasonal allergies Smoker Wears glasses Home Medications biotin 10,000 mcg chewable tablet (Hair, Skin and Nails (biotin)) 10,000 mcg PO DAILY 03/29/22 [History Last Taken Unknown] calcium 600 mg capsule 600 mg PO DAILY 03/29/22 [History Last Taken Unknown] cholecalciferol (vitamin D3) 25 mcg (1,000 unit) chewable tablet (Vitamin D3) 25 mcg PO DAILY 03/29/22 [History Last Taken Unknown] multivitamin 1 cap PO DAILY 03/29/22 [History Last Taken Unknown] Allergy/AdvReac Type Severity Reaction Status Date / Time No Known Allergies Allergy Unverified 04/30/22 13:32 Family History Mother Myocardial infarction, Onset Age: 40 Anxiety and depression Father CVA (cerebral vascular accident) Sister Thyroid disorder Aunt Breast cancer Surgical History History of appendectomy Hx of colonoscopy S/P left inguinal hernia repair Social History Smoking Status: Current every day smoker tobacco type: cigarettes Tobacco: How many years used: 20 alcohol intake: never substance use type: does not use what type of physical activity do you participate in: walking frequency: 1-2 times per week ROS ROS ED Review of Systems ROS Unobtainable: due to mental status EXAM Physical Exam Const Vital Signs: 05/12/22 22:02 05/12/22 22:12 05/12/22 22:12 Temperature 86.7 F L 96.9 F L Temperature Source Temporal Rectal Pulse Rate 61 99 Respiratory Rate 16 29 H Respiratory Effort Respiratory Pattern Blood Pressure 118/94 H 74/41 L Blood Pressure Mean 102 52 Pulse Ox 90 90 Oxygen Delivery Method Nasal Cannula Nasal Cannula Oxygen Flow Rate (L/min) 2 Fraction of Inspired Oxygen (FIO2) 05/12/22 22:13 05/12/22 22:22 05/12/22 22:38 Temperature 96.9 F L 97.3 F L Temperature Source Core Core Pulse Rate 99 96 Respiratory Rate 40 H 44 H Respiratory Effort Short of Breath Accessory Muscle Use Respiratory Pattern Tachypnea Blood Pressure 74/41 L 91/62 Blood Pressure Mean 52 71 Pulse Ox 90 82 Oxygen Delivery Method Nasal Cannula Non-Rebreather Oxygen Flow Rate (L/min) 2 15 Fraction of Inspired Oxygen (FIO2) 05/12/22 22:43 05/12/22 23:01 05/12/22 23:07 Temperature 96.9 F L 96.6 F L Temperature Source Core Core Pulse Rate 91 97 Respiratory Rate 33 H 29 H Respiratory Effort Respiratory Pattern Blood Pressure 109/80 115/77 Blood Pressure Mean 89 89 Pulse Ox 89 92 91 Oxygen Delivery Method Non-Rebreather Non-Rebreather Non-Rebreather Oxygen Flow Rate (L/min) 15 15 Fraction of Inspired Oxygen (FIO2) 05/13/22 00:00 05/13/22 00:00 05/13/22 00:00 Temperature 96.6 F L Temperature Source Core Pulse Rate 101 H 106 H 106 H Respiratory Rate 38 H 35 H Respiratory Effort Respiratory Pattern Tachypnea Blood Pressure 111/79 Blood Pressure Mean 89 Pulse Ox 90 96 Oxygen Delivery Method Airvo Oxygen Flow Rate (L/min) Fraction of Inspired Oxygen (FIO2) 90 05/13/22 00:30 05/13/22 00:45 05/13/22 00:54 Temperature 96.8 F L 97.1 F L 97.2 F L Temperature Source Core Core Core Pulse Rate 100 105 H 103 H Respiratory Rate 32 H 42 H 34 H Respiratory Effort Respiratory Pattern Blood Pressure 95/81 H 105/82 H 105/82 H Blood Pressure Mean 85 89 89 Pulse Ox 94 94 94 Oxygen Delivery Method Airvo Airvo Airvo Oxygen Flow Rate (L/min) Fraction of Inspired Oxygen (FIO2) 05/13/22 01:00 05/13/22 01:00 05/13/22 01:00 Temperature 97.2 F L 97.2 F L Temperature Source Core Core Pulse Rate 108 H 108 H Respiratory Rate 40 H 40 H 40 H Respiratory Effort Respiratory Pattern Blood Pressure 102/85 H 102/85 H Blood Pressure Mean 90 90 Pulse Ox 94 94 Oxygen Delivery Method Airvo Airvo Oxygen Flow Rate (L/min) Fraction of Inspired Oxygen (FIO2) 05/13/22 01:15 05/13/22 01:30 05/13/22 02:00 Temperature 97.7 F L 97.7 F L 97.9 F Temperature Source Core Core Core Pulse Rate 109 H 113 H 108 H Respiratory Rate 38 H 41 H 38 H Respiratory Effort Respiratory Pattern Blood Pressure 96/67 103/78 103/84 H Blood Pressure Mean 76 86 90 Pulse Ox 93 94 92 Oxygen Delivery Method Airvo Airvo Airvo Oxygen Flow Rate (L/min) Fraction of Inspired Oxygen (FIO2) 05/13/22 02:00 05/13/22 02:20 05/13/22 03:00 Temperature 98.3 F Temperature Source Core Pulse Rate 113 H 112 H Respiratory Rate 38 H 40 H Respiratory Effort Respiratory Pattern Tachypnea Blood Pressure 101/74 Blood Pressure Mean 83 Pulse Ox 92 92 91 Oxygen Delivery Method Room Air Airvo Oxygen Flow Rate (L/min) Fraction of Inspired Oxygen (FIO2) 90 05/13/22 03:00 Temperature Temperature Source Pulse Rate Respiratory Rate 40 H Respiratory Effort Respiratory Pattern Blood Pressure Blood Pressure Mean Pulse Ox Oxygen Delivery Method Oxygen Flow Rate (L/min) Fraction of Inspired Oxygen (FIO2) Constitutional Narrative: Thin female, current nasal cannula, cool to palpation, moving all 4 extremities. HEENT Reports moist mucous membranes normocephalic and atraumatic Eyes PERRL, EOMs intact bilaterally and conjunctivae normal General Eye ED: Yes normal appearance of both eyes Neck no lymphadenopathy and supple General: Negative for tenderness Chest Wall Chest: Negative for tenderness Resp normal respiratory effort and normal air movement Effort and Inspection: symmetric chest movement; Negative for respiratory distress Cardio regular rhythm and no murmurs Rate: tachycardic Peripheral Pulses: pulses 2+ throughout GI normal to inspection, nondistended, normoactive bowel sounds and non-tender Palpation: Negative for guarding or rebound tenderness present Back/Spine no CVA tenderness and no thoracic nor lumbar tenderness Extremity normal to inspection General Extremety ED: Negative for edema or tenderness General Extremity: Negative for edema Neuro Neuro Narrative: Patient mumbling, withdrawing all 4 extremities. Skin no rashes or lesions noted and no wounds Skin Narrative: Left groin region incision clean, dry, intact. No erythema or drainage. Sepsis Attestation Sepsis Alert: Yes Sepsis Attestation: Agree w/Sepsis Date exam was performed: 05/12/22 Time exam was performed: 23:36 Possible Source of Sepsis: Pulmonary Sepsis Organ Dysfunction Criteria Present: SBP < 90 mmHg or MAP < 65 mmHg, Creatinine > 2.0 mg/dL and Lactic Acid > 2 mmol/L Fluid Resuscitation Fluid resuscitation indicated?: Yes Fluid Resuscitation ordered: 30 ml/kg fluid bolus ordered Sepsis Note Date exam was performed: 05/13/22 Time exam was performed: 00:00 Sepsis Attestation: Sepsis re-evaluation was performed Response to fluids: Fluid responsive hypotension MDM MDM MDM Narrative Medical decision making narrative: Interventions / MDM: Differential diagnosis:Sepsis, UTI, pneumonia, COVID, influenza, altered mental status Diagnosis considered but do not suspect: CVA, however moving all 4 extremities. Pulmonary embolism, however noted bilateral pneumonia accounting for her hypoxia with clinical cough on reevaluation discussion. My EKG interpretation: Sinus rate of 98, no ST changes. Q waves in anterior leads.Similar to March 2022. Imaging independently reviewed and interpreted by myself: 1 view chest x-ray: Bilateral infiltrates right greater than left. Central line placement in the SVC. No pneumothorax. CT abdomen pelvis: Small bowel obstruction also read by radiology. External documents reviewed: N/A Test considered but not ordered:N/A ED course: Patient presenting altered mental status hypothermic hypotensive tachycardic difficult get oxygenation with pulse ox ABG was obtained PaO2 was 39 per respiratory with arterial stick pH 7.33. Sepsis labs was obtained she is given at least 30 cc/kg due to hypotension. Discussing with sister who arrived with her current clinical status and hypotension for central line placement she agrees this was placed without any difficulties. Patient was responsive to fluids. On work-up White count of 16, creatinine 2.1 previously was normal 0.7. Potassium 2.6 sodium 129. Thyroid levels added due to hypothermia was normal. Chest x-ray reviewed noting bilateral infiltrates. She was initially on nonrebreather however no hypoxic no respiratory distress Airvo was placed up to 60%. Multiple reevaluations clinically was improving and now talking. Troponin returned at 104 EKG sinus rhythm patient denied any chest symptoms today over last couple days is likely type II strain. She was given aspirin for cardioprotection. She is covered Rocephin and Zithromax for community-acquired pneumonia. Lactic acid returned at 4.3 meeting septic shock criteria. Currently fluid responsive. CT brain was obtained and negative.Isblel catheter was placed on arrival for core temp she is placed on bear hugger's to help with hypothermia. You are negative for any infection. She had cultures performed blood and urine. This was prior to antibiotics. Of note discussion with the sister after initial evaluation firm she has had increasing cough over 2 days she is healing fine post her left inguinal hernia repair back in March there is no complaints. She was walking with her when she got dizzy and she was lowered down by her sister. There is no injuries. She was unresponsive when EMS arrived. Re-evaluation: stable And improving currently on Airvo IV fluids continued. Will discuss with hospitalist for admission. Disposition discussed with patient/family/significant other: Case discussed with consulting clinician: Hospitalist, Dr. Calles [phone]: Hospitalist evaluation returned requesting CT abdomen pelvis for further evaluation. This was ordered. Results and discussion with radiologist concerns for bowel obstruction with transition point right at the left inguinal region concern for inguinal hernia. I discussed this with the radiologist that she had elective surgery 6 weeks ago in this region. She states with that there is possibility of adhesions causing this area also now. I spoke with on-call surgeon Dr. Rosa, discussed her history surgery and her presentation here requiring Airvo for oxygenation with her pneumonia. He did state NG tube is warranted with her distended gastrum and will have to manage her airway from a medical standpoint. This was ordered. He discussed with his colleague Dr. Wayne both surgeons were here in the department to evaluate the patient. Anesthesia was called for planned surgery. Patient was intubated in the ED by anesthesia for preparations of surgery. Patient taken to the OR. Procedure note: Central line placement. I spoke and consented with sister after evaluation the patient for hypotension with altered mental status. Written consent obtained. Full sterile conditions. Ultrasound used. Patient placed in Trendelenburg position. Skin prepped with Shur-Clens. 1% lidocaine used for local analgesia. Ultrasound Seldinger technique use, obtained on first stick, however collapsing of lungs, preparations of guidewire, there is no drawback of dark blood, therefore redirected, dark blood return, good pullback, guidewire was advanced, 7.5 Indonesian triple-lumen catheter was placed, all 3 flushed well. This was secured with suturing. Biopatch and dressing was placed. Patient tolerated procedure well. Post x-ray films pending. Lab Data Labs: Laboratory Results - last 24 hr 05/12/22 05/12/22 05/12/22 22:29 22:29 22:29 WBC 16.5 H RBC 5.28 Hgb 16.5 H Hct 47.6 H MCV 90.2 MCH 31.3 MCHC 34.7 RDW Std Deviation 38.5 RDW Coeff of Audrey 11.7 Plt Count 394 MPV 9.8 Immature Gran % (Auto) HASHER OPERATOR Neut % (Auto) HASHER OPERATOR Lymph % (Auto) HASHER OPERATOR Allen % (Auto) HASHER OPERATOR Eos % (Auto) HASHER OPERATOR Baso % (Auto) HASHER OPERATOR Absolute Neuts (auto) 14.5 H Absolute Lymphs (auto) 1.16 Total Counted 100 Neutrophils % (Manual) 33 L Band Neutrophils % 31 H Lymphocytes % (Manual) 7 L Monocytes % (Manual) 4 Metamyelocytes % 22 H Myelocytes % 1 H Promyelocytes % 1 H Other Cells % 1 Nucleated RBC % 0 Diff Path Review May foll Platelet Estimate ADEQUATE RBC Morphology N CYTIC Polychromasia RARE PT 14.1 INR 1.1 APTT 24.2 Sodium 129 L Potassium 2.6 L* Chloride 84 L Carbon Dioxide 26.0 Anion Gap 19 H BUN 99 H Creatinine 2.10 H Estim Creat Clear Calc 23.10 Est GFR (MDRD) Af Amer 31 L Est GFR (MDRD) Non-Af 26 L BUN/Creatinine Ratio 47.1 H Glucose 123 H Serum Osmolality Lactic Acid Uric Acid Calcium 9.5 Total Bilirubin 0.70 AST 13 L ALT 20 Alkaline Phosphatase 59 Troponin I High Sens 104 H Total Protein 5.8 L Albumin 2.3 L Globulin 3.5 Albumin/Globulin Ratio 0.7 L TSH 0.43 Urine Color Urine Clarity Urine pH Ur Specific [place] Urine Protein Urine Glucose (UA) Urine Ketones Urine Occult Blood Urine Nitrite Urine Bilirubin Urine Urobilinogen Ur Leukocyte Esterase Urine RBC Urine WBC Ur Squamous Epith Cells Urine Bacteria Urine Mucus Urine Osmolality Ur Random Sodium 05/12/22 05/12/22 05/12/22 22:29 22:29 22:29 WBC RBC Hgb Hct MCV MCH MCHC RDW Std Deviation RDW Coeff of Audrey Plt Count MPV Immature Gran % (Auto) Neut % (Auto) Lymph % (Auto) Allen % (Auto) Eos % (Auto) Baso % (Auto) Absolute Neuts (auto) Absolute Lymphs (auto) Total Counted Neutrophils % (Manual) Band Neutrophils % Lymphocytes % (Manual) Monocytes % (Manual) Metamyelocytes % Myelocytes % Promyelocytes % Other Cells % Nucleated RBC % Diff Path Review Platelet Estimate RBC Morphology Polychromasia PT INR APTT Sodium Potassium Chloride Carbon Dioxide Anion Gap BUN Creatinine Estim Creat Clear Calc Est GFR (MDRD) Af Amer Est GFR (MDRD) Non-Af BUN/Creatinine Ratio Glucose Serum Osmolality 311 H Lactic Acid Cancelled Uric Acid 18.7 H Calcium Total Bilirubin AST ALT Alkaline Phosphatase Troponin I High Sens Total Protein Albumin Globulin Albumin/Globulin Ratio TSH Urine Color Urine Clarity Urine pH Ur Specific [place] Urine Protein Urine Glucose (UA) Urine Ketones Urine Occult Blood Urine Nitrite Urine Bilirubin Urine Urobilinogen Ur Leukocyte Esterase Urine RBC Urine WBC Ur Squamous Epith Cells Urine Bacteria Urine Mucus Urine Osmolality Ur Random Sodium 05/12/22 05/12/22 05/13/22 22:30 23:36 00:46 WBC RBC Hgb Hct MCV MCH MCHC RDW Std Deviation RDW Coeff of Audrey Plt Count MPV Immature Gran % (Auto) Neut % (Auto) Lymph % (Auto) Allen % (Auto) Eos % (Auto) Baso % (Auto) Absolute Neuts (auto) Absolute Lymphs (auto) Total Counted Neutrophils % (Manual) Band Neutrophils % Lymphocytes % (Manual) Monocytes % (Manual) Metamyelocytes % Myelocytes % Promyelocytes % Other Cells % Nucleated RBC % Diff Path Review Platelet Estimate RBC Morphology Polychromasia PT INR APTT Sodium Potassium Chloride Carbon Dioxide Anion Gap BUN Creatinine Estim Creat Clear Calc Est GFR (MDRD) Af Amer Est GFR (MDRD) Non-Af BUN/Creatinine Ratio Glucose Serum Osmolality Lactic Acid 4.3 H* Uric Acid Calcium Total Bilirubin AST ALT Alkaline Phosphatase Troponin I High Sens Total Protein Albumin Globulin Albumin/Globulin Ratio TSH Urine Color Yellow Urine Clarity Clear Urine pH 5.0 Ur Specific [place] 1.020 Urine Protein 15 H Urine Glucose (UA) Normal Urine Ketones 15 H Urine Occult Blood 10 H Urine Nitrite Negative Urine Bilirubin Negative Urine Urobilinogen Normal Ur Leukocyte Esterase Negative Urine RBC 0 SEEN Urine WBC 0 SEEN Ur Squamous Epith Cells 0 SEEN Urine Bacteria RARE Urine Mucus 0 SEEN Urine Osmolality 513 Ur Random Sodium < 5 05/13/22 03:33 WBC RBC Hgb Hct MCV MCH MCHC RDW Std Deviation RDW Coeff of Audrey Plt Count MPV Immature Gran % (Auto) Neut % (Auto) Lymph % (Auto) Allen % (Auto) Eos % (Auto) Baso % (Auto) Absolute Neuts (auto) Absolute Lymphs (auto) Total Counted Neutrophils % (Manual) Band Neutrophils % Lymphocytes % (Manual) Monocytes % (Manual) Metamyelocytes % Myelocytes % Promyelocytes % Other Cells % Nucleated RBC % Diff Path Review Platelet Estimate RBC Morphology Polychromasia PT INR APTT Sodium Potassium Chloride Carbon Dioxide Anion Gap BUN Creatinine Estim Creat Clear Calc Est GFR (MDRD) Af Amer Est GFR (MDRD) Non-Af BUN/Creatinine Ratio Glucose Serum Osmolality Lactic Acid 3.4 H* Uric Acid Calcium Total Bilirubin AST ALT Alkaline Phosphatase Troponin I High Sens Total Protein Albumin Globulin Albumin/Globulin Ratio TSH Urine Color Urine Clarity Urine pH Ur Specific [place] Urine Protein Urine Glucose (UA) Urine Ketones Urine Occult Blood Urine Nitrite Urine Bilirubin Urine Urobilinogen Ur Leukocyte Esterase Urine RBC Urine WBC Ur Squamous Epith Cells Urine Bacteria Urine Mucus Urine Osmolality Ur Random Sodium ABG Data ABG results: ABG 05/12/22 22:24 Specimen Type ART Sample Site L Brach pH 7.34 L Bicarbonate Actual 22.5 Total CO2 24 Base Excess -3 L O2 Saturation 71 L ABG pCO2 42.1 ABG pO2 39 L* Stiven Test Positive O2 Delivery Device Cannula Liter Flow 2.0 Crit Call To/Read Back Yes Blood Gas Notified Whom Le Radiography Diagnostic Testing: Clinical Impression(s) from Imaging Studies Brain CT 05/12/22 22:11 IMPRESSION: No acute abnormality. CT angiogram and/or MRI may be helpful to evaluate for acute infarct as clinically indicated. Electronically Signed: Brittnee Lorenz MD at 23:52 EDT , Chest X-Ray 05/12/22 22:12 IMPRESSION: Central venous catheter as described. Bilateral infiltrates consistent with pneumonia. Electronically Signed: Brittnee Lorenz MD at 0:16 EDT , Abdomen/Pelvis CT 05/13/22 01:09 IMPRESSION: 1. Small bowel obstruction secondary to left inguinal hernia containing small bowel with findings that suggest incarceration. Marked gastric dilatation and small bowel dilatation. 2. Distended distal esophagus. Patient may be at risk for aspiration. 3. Extensive consolidation in the lower lungs likely pneumonia. Electronically Signed: Brittnee Lorenz MD at 2:51 EDT , ADDENDUM: 05/13/22 0300 IMPRESSION: 1. Small bowel obstruction secondary to left inguinal hernia containing small bowel with findings that suggest incarceration. Marked gastric dilatation and small bowel dilatation. 2. Distended distal esophagus. Patient may be at risk for aspiration. 3. Extensive consolidation in the lower lungs likely pneumonia. N.B. : The above Results were Read Back by Brittnee Lorenz MD to Donaldo Mckeon MD, and understanding confirmed on 05/13/2022 02:53:44 (ET). Electronically Signed: Brittnee Lorenz MD at 2:51 EDT , Critical Care Time Critical Care Time: Yes Critical care time (excluding procedures): 30-74 minutes, Discussing w/Patient &/or Family/Outside Parts Salesman, Discussing w/Consultants, Arranging Admission or Transfer, Performing Direct Patient Care at Bedside and - (45 minutes) Discharge Plan Dx/Rx/DC Orders Clinical Impression: Septic shock, Community acquired pneumonia, Hypoxia, ROSALIE (acute kidney injury), Acute hypokalemia, Hypothermia, Acute respiratory failure with hypoxia, Elevated troponin, Acute metabolic encephalopathy, Acute hyponatremia, Encounter for central line placement, Small bowel obstruction Disposition Disposition: Acute Care Hospital [facility]
[2022-05-12] MEDS: 0.9% Normal Saline 1,000 ML 999 ML IV ×2 (22:26→23:03)
[2022-05-12 22:30] LABS: Allen Test Positive; Base Excess -3 mmol/L (-2 to +2); Bicarbonate 22.5 mmol/L (22-26); Blood Gas Specimen Type ART; O2 Delivery Device Cannula; PO2 39 mmHG (75-100); SITE L Brach; SO2 71 % (95-99); Total Carbon Dioxide 24 mmol/L; pCO2 42.1 mmHg (35-45); pH 7.34 (7.35-7.45)
[2022-05-12 22:37] LABS: Mucous, Urine 0 SEEN /hpf (<or=2+); Red Blood Cells-Urine 0 SEEN /hpf (0-5); Squamous Epithelial Cells - UA 0 SEEN /hpf (5-10); White Blood Cells 0 SEEN /hpf (0-5)
[2022-05-12 22:39] LABS: Color, Urine Yellow (Yellow); Glucose, Dipstick Normal (Normal); Ketone-Dipstick 15 mg/dl (Negative); Leukocyte Esterase-Dipstick Negative /ul (Negative); Nitrite-Dipstick Negative (Negative); Occult Blood-Urine 10 /ul (Negative); Protein-Dipstick 15 mg/dl (Negative); Urine Bilirubin Dipstick Negative (Negative); Urine Clarity Clear (Clear); Urine Urobilinogen Normal (Normal)
[2022-05-12 22:42] LABS: Basophil# 0.02 X10^3/uL; Eosinophil# 0.01 X10^3/uL; Hematocrit 47.6 % (37-47); Hemoglobin 16.5 g/dL (12.0-15.0); Mean Corp Hgb Conc 34.7 g/dL (32-36); Mean Corpuscular Hgb 31.3 pg (27.0-32.0); Mean Corpuscular Volume 90.2 fL (81-99); Mean Platelet Vol. 9.8 fl (6.2-12.0); Monocyte# 0.44 X10^3/uL; NRBC Flagged by Analyzer 0 % (0-5); POSITIVE MORPHOLOGY YES; Platelet Count 394 K/mm3 (150-450); RBC Distribution Width CV 11.7 % (11.6-14.6); RBC Distribution Width SD 38.5 fl (35.1-43.9); Red Blood Count 5.28 M/mm3 (4.2-5.4); White Blood Count 16.5 K/mm3 (4.4-11.0)
[2022-05-12 22:45] LABS: Differential Indicated SCAN CRITERIA MET
[2022-05-12 22:59] LABS: Scan Smear per Review Criteria MANUAL DIFF
[2022-05-12 23:02] LABS: Bacteria RARE /hpf (None Seen)
[2022-05-12 23:06] LABS: Lymphocyte 7 % (19-41); Metamyelocyte 22 % (0-1); Monocyte 4 % (0-10); Myelocyte 1 % (0-0); Neutrophil-Band 31 % (0-5); Neutrophil-Segmented 33 % (47-70); Other WBC Type 1 %; Promyelocyte 1 % (0-0); Total Cells Counted 100 (MANUAL DIFF)
[2022-05-12 23:07] LABS: Absolute Neutrophil Count 14.5 X10^3/uL (2.0-7.7); Neutrophil # 14.54 X10^3/uL (2.7-7.7)
[2022-05-12 23:08] LABS: Absolute Lymphocyte Count 1.16 X10^3/uL (0.83-4.51); Lymphocyte # 1.16 X10^3/ul (0.83-4.51); Platelet Estimate ADEQUATE (ADEQ)
[2022-05-12 23:09] LABS: Polychromasia RARE; Red Cell Morphology N CYTIC NORMAL (NORM C&C)
[2022-05-12 23:17] LABS: ALB/GLOB Ratio 0.7 RATIO (0.9-2.4); AST(SGOT) 13 U/L (15-37); Alanine Aminotransfer ALT/SGPT 20 U/L (13-56); Albumin, Serum 2.3 g/dL (3.2-5.0); Alkaline Phosphatase 59 U/L (45-117); Anion Gap 19 (5-15); BUN 99 mg/dL (7-18); BUN/Creat Ratio 47.1 RATIO (10-20); Calcium,Total 9.5 mg/dL (8.5-10.1); Chloride 84 mmol/L (98-107); EST Glomerular Filtration Rate 26 mL/min (>60); Est Glom Filt Rate - Afr Amer 31 mL/min (>60); Globulin 3.5 g/dL (2.2-4.2); Glucose 123 mg/dL (74-106); Potassium 2.6 mmol/L (3.5-5.1); Protein, Total 5.8 g/dL (6.4-8.2); Sodium Level 129 mmol/L (136-145); Thyroid Stim Hormone (TSH) 0.43 uIU/mL (0.358-3.74); Troponin-I HS 104 pg/mL (3.0-54.0)
[2022-05-12 23:22] LABS: International Normalized Ratio 1.1; Prothrombin Time (Protime)PT. 14.1 SECONDS (11.7-14.9)
[2022-05-12 23:24] LABS: Partial Thromboplast Time 24.2 Seconds (24.1-36.2)
[2022-05-12] MEDS: Aspirin 81 MG TAB.CHEW 324 MG PO (23:55)
[2022-05-13] VITALS (44 sets, daily range): BP systolic 69–165; BP diastolic 41–106; PULSE 100–130; RESP 16–42; TEMP 35.9–39; O2SAT 73–100; BMI 19.5
--- NOTE | 2022-05-13 00:17 | HP.PCM.HOS_ITS ---
HPI - General General Date of Admission: 05/13/22 Date of Service: 05/13/22 Chief Complaint: Syncope HPI Narrative GONZALES HOBSON, is a 56 F who had hernia surgery at the left groin on April 02, 2022 presented emergency department with syncope that occurred on the same day of presentation. Prior to patient having syncope she felt lightheaded. Reportedly about 9 days before presentation patient had a viral-like illness. She has been weak and tired. She has been spitting up mucus. She has felt nauseous. She has a productive cough of green to brown sputum. [facility] Medical History Carpal tunnel syndrome Heart murmur Heartburn History of irregular heartbeat History of stress test Leg cramps Post-menopausal Reducible left inguinal hernia Seasonal allergies Smoker Wears glasses Home Medications biotin 10,000 mcg chewable tablet (Hair, Skin and Nails (biotin)) 10,000 mcg PO DAILY 03/29/22 [History Last Taken Unknown] calcium 600 mg capsule 600 mg PO DAILY 03/29/22 [History Last Taken Unknown] cholecalciferol (vitamin D3) 25 mcg (1,000 unit) chewable tablet (Vitamin D3) 25 mcg PO DAILY 03/29/22 [History Last Taken Unknown] multivitamin 1 cap PO DAILY 03/29/22 [History Last Taken Unknown] Allergy/AdvReac Type Severity Reaction Status Date / Time No Known Allergies Allergy Unverified 04/30/22 13:32 Family History Mother Myocardial infarction, Onset Age: 40 Anxiety and depression Father CVA (cerebral vascular accident) Sister Thyroid disorder Aunt Breast cancer Surgical History History of appendectomy Hx of colonoscopy S/P left inguinal hernia repair Social History Smoking Status: Current every day smoker tobacco type: cigarettes Tobacco: How many years used: 20 alcohol intake: never substance use type: does not use what type of physical activity do you participate in: walking frequency: 1-2 times per week ROS ROS Narrative Pertinent positives and pertinent negatives as noted in HPI. All other systems were reviewed and are negative Vital Signs Vital Signs Vital Signs: 05/12/22 22:02 05/12/22 22:12 05/12/22 22:12 Temperature 86.7 F L 96.9 F L Temperature Source Temporal Rectal Pulse Rate 61 99 Respiratory Rate 16 29 H Respiratory Effort Respiratory Pattern Blood Pressure 118/94 H 74/41 L Blood Pressure Mean 102 52 Pulse Ox 90 90 Oxygen Delivery Method Nasal Cannula Nasal Cannula Oxygen Flow Rate (L/min) 2 Fraction of Inspired Oxygen (FIO2) 05/12/22 22:13 05/12/22 22:22 05/12/22 22:38 Temperature 96.9 F L 97.3 F L Temperature Source Core Core Pulse Rate 99 96 Respiratory Rate 40 H 44 H Respiratory Effort Short of Breath Accessory Muscle Use Respiratory Pattern Tachypnea Blood Pressure 74/41 L 91/62 Blood Pressure Mean 52 71 Pulse Ox 90 82 Oxygen Delivery Method Nasal Cannula Non-Rebreather Oxygen Flow Rate (L/min) 2 15 Fraction of Inspired Oxygen (FIO2) 05/12/22 22:43 05/12/22 23:01 05/12/22 23:07 Temperature 96.9 F L 96.6 F L Temperature Source Core Core Pulse Rate 91 97 Respiratory Rate 33 H 29 H Respiratory Effort Respiratory Pattern Blood Pressure 109/80 115/77 Blood Pressure Mean 89 89 Pulse Ox 89 92 91 Oxygen Delivery Method Non-Rebreather Non-Rebreather Non-Rebreather Oxygen Flow Rate (L/min) 15 15 Fraction of Inspired Oxygen (FIO2) 05/13/22 00:00 Temperature Temperature Source Pulse Rate 101 H Respiratory Rate 38 H Respiratory Effort Respiratory Pattern Tachypnea Blood Pressure Blood Pressure Mean Pulse Ox 90 Oxygen Delivery Method Oxygen Flow Rate (L/min) Fraction of Inspired Oxygen (FIO2) 90 Weight Weight: 51 kg Body Mass Index (BMI) 20.5 Physical Exam Narrative Physical exam: General: Well-nourished, well-developed. Head: Normocephalic, atraumatic, no tenderness Eyes: Vision is grossly intact. EOMI ENT, no trauma, moist mucous membranes, no rhinorrhea Neck: Nontender, No thyromegaly. CVS: Tachycardia. S1-S2 present. No murmur, gallop or rub. Respiratory : Tachypnea, diminished Abdomen: Distended with high-pitched sounds. : Healed incision left groin. Back: Nontender, no CVA tenderness, no midline spinal tenderness, deformities, step-offs Extremities: Nontender full range of motion, no trauma Skin: Normal color, no trauma, abrasions Neuro: Alert, oriented, cranial nerves II through XII grossly intact. Psychiatry: Normal mood. Normal affect. Not depressed. Not anxious. Results Lab / Micro Data Result Diagrams: 05/12/22 22:29 05/12/22 22:29 Labs: Laboratory Results - last 24 hr 05/12/22 22:29: WBC 16.5 H, RBC 5.28, Hgb 16.5 H, Hct 47.6 H, MCV 90.2, MCH 31.3, MCHC 34.7, RDW Std Deviation 38.5, RDW Coeff of Audrey 11.7, Plt Count 394, MPV 9.8, Immature Gran % (Auto) TRANSFORMATION ANALYST, Neut % (Auto) TRANSFORMATION ANALYST, Lymph % (Auto) TRANSFORMATION ANALYST, [place] % (Auto) TRANSFORMATION ANALYST, Eos % (Auto) TRANSFORMATION ANALYST, Baso % (Auto) TRANSFORMATION ANALYST, Absolute Neuts (auto) 14.5 H, Absolute Lymphs (auto) 1.16, Total Counted 100, Neutrophils % (Manual) 33 L, Band Neutrophils % 31 H, Lymphocytes % (Manual) 7 L, Monocytes % (Manual) 4, Metamyelocytes % 22 H, Myelocytes % 1 H, Promyelocytes % 1 H, Other Cells % 1, Nucleated RBC % 0, Diff Path Review May foll, Platelet Estimate ADEQUATE, RBC Morphology N CYTIC, Polychromasia RARE 05/12/22 22:29: PT 14.1, INR 1.1, APTT 24.2 05/12/22 22:29: Sodium 129 L, Potassium 2.6 L*, Chloride 84 L, Carbon Dioxide 26.0, Anion Gap 19 H, BUN 99 H, Creatinine 2.10 H, Estim Creat Clear Calc 23.10, Est GFR (MDRD) Af Amer 31 L, Est GFR (MDRD) Non-Af 26 L, BUN/Creatinine Ratio 47.1 H, Glucose 123 H, Calcium 9.5, Total Bilirubin 0.70, AST 13 L, ALT 20, Alkaline Phosphatase 59, Troponin I High Sens 104 H, Total Protein 5.8 L, Albumin 2.3 L, Globulin 3.5, Albumin/Globulin Ratio 0.7 L, TSH 0.43 05/12/22 22:29: Lactic Acid Cancelled 05/12/22 22:30: Urine Color Yellow, Urine Clarity Clear, Urine pH 5.0, Ur Specific [place] 1.020, Urine Protein 15 H, Urine Glucose (UA) Normal, Urine Ketones 15 H, Urine Occult Blood 10 H, Urine Nitrite Negative, Urine Bilirubin Negative, Urine Urobilinogen Normal, Ur Leukocyte Esterase Negative, Urine RBC 0 SEEN, Urine WBC 0 SEEN, Ur Squamous Epith Cells 0 SEEN, Urine Bacteria RARE, Urine Mucus 0 SEEN Micro: Microbiology 05/12/22 22:30 Nasal Secretion SARS-CoV-2 & FLU Antigen (Rapid) - Final ABG Data ABG results: ABG 05/12/22 22:24 Specimen Type ART Sample Site L Brach pH 7.34 L Bicarbonate Actual 22.5 Total CO2 24 Base Excess -3 L O2 Saturation 71 L ABG pCO2 42.1 ABG pO2 39 L* Stiven Test Positive O2 Delivery Device Cannula Liter Flow 2.0 Crit Call To/Read Back Yes Blood Gas Notified Whom [facility] Radiology Impression Brain CT 05/12/22 22:11 IMPRESSION: No acute abnormality. CT angiogram and/or MRI may be helpful to evaluate for acute infarct as clinically indicated. Electronically Signed: Brittnee Lorenz MD at 23:52 EDT , Assessment & Plan Assessment/Plan (1) Community acquired pneumonia: (2) Acute hyponatremia: (3) Septic shock: (4) Acute respiratory failure with hypoxia: PLAN: Plan Septic shock secondary to pneumonia The patient presented with sepsis due to (pneumonia) with acute sepsis related organ dysfunction as evidenced by (organ dysfunction from ROSALIE with creatinine more than 2; systolic blood pressure of less than 90; acute respiratory failure requiring Airvo; and lactic acid more than 2). Additionally patient also meets requirement for septic shock since lactic acidosis more than 2 SIRS criteria: Initial temperature of 86.7 Fahrenheit requiring Julia hugger; tachypnea with highest respiratory rate of 44; tachycardia with heart rate of more than 100s. White count of 16,500 Chest x-ray was visualized and independently interpreted. I agree with radiologist of bilateral infiltrates. Pneumonia, gram-negative, gram-positive or atypical. Check strep pneumonia antigen and Legionella urine antigen. Start on azithromycin and ceftriaxone and with improvement at the emergency department; continued. Received normal saline 30 MLS per kilogram bolus per sepsis protocol. Trend lactic acid. Blood culture x2 ordered at the ED, urine culture ordered to ED. Urinalysis was not impressive. Admit intensive care unit. Float Builder consult. Acute hypoxemic respiratory failure ABG showed PO2 of 39. Placed on a avoid emergency department and continued. Titrate supplemental oxygen as necessary. Abdominal distention CT of abdomen and pelvis ordered. Keep n.p.o. ROSALIE Creatinine presentation was 2.10. Old creatinine on file was on 07/22/2017 at that time and creatinine was 0.73. Review of previous records did not show any other creatinine. BUN is 99. BUN over creatinine is 47.1. Avoid nephrotoxic's. Trend BMP. Gentle IV hydration with normal saline and potassium as patient had hypokalemia. Hypovolemic hyponatremia Sodium of 129 on presentation. Likely secondary to hypovolemia and vomiting. Received normal saline bolus in the emergency department. Placed on gentle IV hydration. Trend BMP. Check uric acid. Check TSH and a.m. cortisol. Elevated troponin Likely type II from demand ischemia. Initial troponin was 104. EKG showed septal infarct. Received full dose aspirin emergency department. Trend troponin. Hypokalemia Potassium of 2.6 on presentation. Like secondary to nausea, vomiting and decreased appetite. IV placement ordered emergency department. Normal saline with potassium 40 mEq ordered. Trend BMP. DVT prophylaxis Subcutaneous heparin ordered. Sepsis Attestation Sepsis Alert: Yes Sepsis Attestation: Agree w/Sepsis Date exam was performed: 05/13/22 Time exam was performed: 01:31 Possible Source of Sepsis: Pulmonary Sepsis Organ Dysfunction Criteria Present: SBP < 90 mmHg or MAP < 65 mmHg, Acute Respiratory Failure (New need for BiPAP/CPAP or MV), Creatinine > 2.0 mg/dL, Lactic Acid > 2 mmol/L and New/Unexplained change in mental status Fluid Resuscitation Fluid Resuscitation ordered: 30 ml/kg fluid bolus ordered Charges/Coding Visit Charges Inpatient E&M: 15372 Init Hosp L3
[2022-05-13 00:21] LABS: Lactic Acid 4.3 mmol/L (0.4-1.9)
[2022-05-13] MEDS: 0.9% Normal Saline 1,000 ML 150 ML IV (00:22)
[2022-05-13] MEDS: Potassium Chloride 10mEq/100mL 10 MEQ/100 ML IV.SOLN. 100 MEQ IV BOLUS ×4 (00:22→03:17)
[2022-05-13 00:59] LABS: Urine Sodium < 5 mmol/L (Not Establ.)
--- NOTE | 2022-05-13 01:09 | CT_ITS ---
We are attempting to reach an attending provider to discuss findings. An addendum with communication details will be sent when the communication is complete. INDICATION: vomiting EXAMINATION: CT ABDOMEN AND PELVIS WITHOUT CONTRAST - CT Abdomen And Pelvis W/O Contrast Injection TECHNIQUE: Helically acquired images were obtained of the abdomen and pelvis without oral or IV contrast. A radiation dose optimization technique was used for this scan. IV Contrast dosage and agent: None. Oral contrast: None. COMPARISON: None. FINDINGS: LOWER CHEST: Extensive consolidation in the lower lobes, with groundglass opacities in the remainder of the lung bases. Small pericardial effusion. Distal esophagus is distended with fluid. LIVER: Grossly unremarkable. GALLBLADDER AND BILIARY TREE: Grossly unremarkable. PANCREAS: Grossly unremarkable. SPLEEN: Grossly unremarkable. ADRENAL GLANDS: Grossly unremarkable. KIDNEYS AND URETERS: No calculi demonstrated. No hydronephrosis. PERITONEUM: No free air. No free fluid. BOWEL: There is a small left inguinal hernia that contains a very short segment of small bowel, with mild adjacent stranding in the hernia sac. The small bowel proximal to the hernia is moderately dilated, with an abrupt transition at the entrance of the hernia. The distal small bowel is decreased caliber. The stomach is markedly distended with large amount of fluid smaller amount of air. APPENDIX: Not identified. VESSELS: Abdominal aorta is normal caliber. REPRODUCTIVE ORGANS: Grossly unremarkable URINARY BLADDER: Decompressed with Isbell catheter in place. Small amount of air in the bladder presumably related to the catheter. ABDOMINAL WALL: Unremarkable. BONES: No acute abnormalities. CT/Abdomen/Pelvis without Cont IMPRESSION: 1. Small bowel obstruction secondary to left inguinal hernia containing small bowel with findings that suggest incarceration. Marked gastric dilatation and small bowel dilatation. 2. Distended distal esophagus. Patient may be at risk for aspiration. 3. Extensive consolidation in the lower lungs likely pneumonia. Electronically Signed: Brittnee Lorenz MD at 2:51 EDT Reading Location ID and State: [facility] / [place] Tel , Service support ,
[2022-05-13 01:28] LABS: Osmolality, Urine 513 mOsm/KG
[2022-05-13 01:28] LABS: Osmolality, Serum 311 mOsm/KG (275-295)
[2022-05-13 01:47] LABS: Uric Acid 18.7 mg/dL (2.6-6.0)
[2022-05-13 03:41] LABS: Reflex Lactate? Y
--- NOTE | 2022-05-13 04:02 | EX.PCM.CON.S ---
Assessment & Plan Assessment/Plan (1) Incarcerated left inguinal hernia: (2) Septic shock: (3) Aspiration pneumonia: (4) Acute respiratory failure with hypoxia: (5) Acute hypokalemia: (6) ROSALIE (acute kidney injury): PLAN: Plan Reviewed patient's CT abdomen pelvis showed small bowel in the left inguinal hernia causing a bowel obstruction. Patient also does have consolidation of bilateral posterior lower lobes possible aspiration pneumonia. We will plan for exploration of the left inguinal area, possible laparotomy, possible bowel resection. Includes risk not limited to bleeding, infection, recurrent hernia, possible staying on the vent temporarily postoperatively in the ICU, and anesthesia. Patient and her sister had no further question this time. Tahmina Wayne M.D. Pager: [phone] [facility] [address] [place] [address], [facility], [address] [place] [address] Office: [phone] HPI Consult Data Date of Consult: 05/13/22 HPI Narrative HPI Narrative: GONZALES HOBSON, is a 56 F who presents after near syncopal episode per family. Per patient's sister patient did not throw up tonight however she had thrown up a few nights ago. Patient has been spitting up bile. Patient states she has not been able to eat anything for the about the last week but has been drinking. Patient is unable to say when she last had a bowel movement. Patient states she has not ate much since surgery. Patient CT abdomen pelvis does show a large dilated stomach small bowel obstruction caused by small bowel in the left inguinal hernia. Patient white blood count 16.5 patient also hypoxic and placed on Airvo currently mentating well. Patient had a K of 2.6 currently getting IV potassium and right IJ central line was placed by the ER. [facility] Medical History Carpal tunnel syndrome Heart murmur Heartburn History of irregular heartbeat History of stress test Leg cramps Post-menopausal Reducible left inguinal hernia Seasonal allergies Smoker Wears glasses Home Medications biotin 10,000 mcg chewable tablet (Hair, Skin and Nails (biotin)) 10,000 mcg PO DAILY 03/29/22 [History Last Taken Unknown] calcium 600 mg capsule 600 mg PO DAILY 03/29/22 [History Last Taken Unknown] cholecalciferol (vitamin D3) 25 mcg (1,000 unit) chewable tablet (Vitamin D3) 25 mcg PO DAILY 03/29/22 [History Last Taken Unknown] multivitamin 1 cap PO DAILY 03/29/22 [History Last Taken Unknown] Allergy/AdvReac Type Severity Reaction Status Date / Time No Known Allergies Allergy Unverified 04/30/22 13:32 Family History Mother Myocardial infarction, Onset Age: 40 Anxiety and depression Father CVA (cerebral vascular accident) Sister Thyroid disorder Aunt Breast cancer Surgical History History of appendectomy Hx of colonoscopy S/P left inguinal hernia repair Social History Smoking Status: Current every day smoker tobacco type: cigarettes Tobacco: How many years used: 20 alcohol intake: never substance use type: does not use what type of physical activity do you participate in: walking frequency: 1-2 times per week Physical Exam Const alert and oriented x3 HEENT HEENT Narrative: Currently on Airvo Resp Auscultation: diminished lung sounds bilateral Cardio Rate: regular rate GI Inspection: abdominal distention Palpation: tender and hernia other (Left inguinal ) Lab / Micro Data Result Diagrams: 05/12/22 22:29 05/12/22 22:29 Labs: Laboratory Results - last 24 hr 05/12/22 22:29: WBC 16.5 H, RBC 5.28, Hgb 16.5 H, Hct 47.6 H, MCV 90.2, MCH 31.3, MCHC 34.7, RDW Std Deviation 38.5, RDW Coeff of Audrey 11.7, Plt Count 394, MPV 9.8, Immature Gran % (Auto) PHARMACY BENEFITS COORDINATOR, Neut % (Auto) PHARMACY BENEFITS COORDINATOR, Lymph % (Auto) PHARMACY BENEFITS COORDINATOR, [place] % (Auto) PHARMACY BENEFITS COORDINATOR, Eos % (Auto) PHARMACY BENEFITS COORDINATOR, Baso % (Auto) PHARMACY BENEFITS COORDINATOR, Absolute Neuts (auto) 14.5 H, Absolute Lymphs (auto) 1.16, Total Counted 100, Neutrophils % (Manual) 33 L, Band Neutrophils % 31 H, Lymphocytes % (Manual) 7 L, Monocytes % (Manual) 4, Metamyelocytes % 22 H, Myelocytes % 1 H, Promyelocytes % 1 H, Other Cells % 1, Nucleated RBC % 0, Diff Path Review May foll, Platelet Estimate ADEQUATE, RBC Morphology N CYTIC, Polychromasia RARE 05/12/22 22:29: PT 14.1, INR 1.1, APTT 24.2 05/12/22 22:29: Sodium 129 L, Potassium 2.6 L*, Chloride 84 L, Carbon Dioxide 26.0, Anion Gap 19 H, BUN 99 H, Creatinine 2.10 H, Estim Creat Clear Calc 23.10, Est GFR (MDRD) Af Amer 31 L, Est GFR (MDRD) Non-Af 26 L, BUN/Creatinine Ratio 47.1 H, Glucose 123 H, Calcium 9.5, Total Bilirubin 0.70, AST 13 L, ALT 20, Alkaline Phosphatase 59, Troponin I High Sens 104 H, Total Protein 5.8 L, Albumin 2.3 L, Globulin 3.5, Albumin/Globulin Ratio 0.7 L, TSH 0.43 05/12/22 22:29: Lactic Acid Cancelled 05/12/22 22:29: Serum Osmolality 311 H 05/12/22 22:29: Uric Acid 18.7 H 05/12/22 22:30: Urine Color Yellow, Urine Clarity Clear, Urine pH 5.0, Ur Specific [place] 1.020, Urine Protein 15 H, Urine Glucose (UA) Normal, Urine Ketones 15 H, Urine Occult Blood 10 H, Urine Nitrite Negative, Urine Bilirubin Negative, Urine Urobilinogen Normal, Ur Leukocyte Esterase Negative, Urine RBC 0 SEEN, Urine WBC 0 SEEN, Ur Squamous Epith Cells 0 SEEN, Urine Bacteria RARE, Urine Mucus 0 SEEN 05/12/22 23:36: Lactic Acid 4.3 H* 05/13/22 00:46: Urine Osmolality 513, Ur Random Sodium < 5 Micro: Microbiology 05/13/22 00:46 Urine Catheter - Catheter Legionella Antigen - Final 05/13/22 00:46 Urine Catheter - Catheter Streptococcus pneumoniae Antigen (M - Final 05/12/22 22:30 Nasal Secretion SARS-CoV-2 & FLU Antigen (Rapid) - Final ABG Data ABG results: ABG 05/12/22 22:24 Specimen Type ART Sample Site L Brach pH 7.34 L Bicarbonate Actual 22.5 Total CO2 24 Base Excess -3 L O2 Saturation 71 L ABG pCO2 42.1 ABG pO2 39 L* Stiven Test Positive O2 Delivery Device Cannula Liter Flow 2.0 Crit Call To/Read Back Yes Blood Gas Notified Whom [facility] Radiology Impression Brain CT 05/12/22 22:11 IMPRESSION: No acute abnormality. CT angiogram and/or MRI may be helpful to evaluate for acute infarct as clinically indicated. Electronically Signed: Brittnee Lorenz MD at 23:52 EDT Reading Location ID and State: [facility] / [place] Tel , Service support , Chest X-Ray 05/12/22 22:12 IMPRESSION: Central venous catheter as described. Bilateral infiltrates consistent with pneumonia. Electronically Signed: Brittnee Lorenz MD at 0:16 EDT Reading Location ID and State: [facility] / [place] Tel , Service support , Abdomen/Pelvis CT 05/13/22 01:09 IMPRESSION: 1. Small bowel obstruction secondary to left inguinal hernia containing small bowel with findings that suggest incarceration. Marked gastric dilatation and small bowel dilatation. 2. Distended distal esophagus. Patient may be at risk for aspiration. 3. Extensive consolidation in the lower lungs likely pneumonia. Electronically Signed: Brittnee Lorenz MD at 2:51 EDT Reading Location ID and State: [facility] / [place] Tel , Service support , ADDENDUM: 05/13/22 0300 IMPRESSION: 1. Small bowel obstruction secondary to left inguinal hernia containing small bowel with findings that suggest incarceration. Marked gastric dilatation and small bowel dilatation. 2. Distended distal esophagus. Patient may be at risk for aspiration. 3. Extensive consolidation in the lower lungs likely pneumonia. N.B. : The above Results were Read Back by Brittnee Lorenz MD to Donaldo Mckeon MD, and understanding confirmed on 05/13/2022 02:53:44 (ET). Electronically Signed: Brittnee Lorenz MD at 2:51 EDT ,
[2022-05-13 04:05] LABS: Lactic Acid 3.4 mmol/L (0.4-1.9)
[2022-05-13] MEDS: Etomidate 20 MG/10 ML Vial 8 MG IV (04:16)
[2022-05-13] MEDS: Succinylcholine Chloride 200 MG/10 ML SYRINGE 100 MG IV (04:16)
--- NOTE | 2022-05-13 04:16 | ED.RN ---
0416 DR JEONG IS GIVING THE PT 100MG OF SUCC AND ETOMADATE.
--- NOTE | 2022-05-13 04:45 | COL_PTH ---
PATIENT: GONZALES HOBSON LOC: MS3 U#:[id number] AGE/SX: 56/F ROOM: [facility] RE05/13/[address]: Dr. Lucinda Fu MD : 1965 BED: 1 DIS: 06/06/2022 SPEC #: [id number] RECD: 05/13/22 09:23 STATUS: LUCY REAxel #: [id number] JOSY: 05/13/22 04:[address]: Tahmina Wayne DEPT: SURGICAL PATHOLOGY RECD BY: Tierra Villar ENTERED: 05/13/22 10:02 SP TYPE: COLON OTHR DR: MD Dr. Hi Ratliff DO Dr. Efewongbe Oleghe, MD Dr. Lee Ann Baggott, MD Dr. Michael Bortz, MD Dr. Nicholas F Kotsonis, MD Dr. Tanmay Panchabhai, MD Dr. Tamera Robotham, MD Christina Muller, MOTOR OVERHAULER-C Tissues: Colon, NOS Procedures: Special Stain Group I Surgery Specimen Level V GMS Stain (control) Comments: @ Ordering doctor for SUV edited from to @ by RGOOD at 05/13/22 1447 @ Submitting doctor edited from to @ by RGOOD at 05/13/22 1447 HEADER OPERATION: Exploration left inguinal hernia, possible exploratory laparotomy PRE-OP DIAGNOSIS: Incarcerated left inguinal hernia, septic shock, aspiration pneumonia TISSUE SUBMITTED: Jejunum MICROSCOPIC DIAGNOSIS Jejunum, segmental resection: Vascular congestion with focal mucosal denudation. Autolyzed tissue in lumen with fungal organisms. See comment. AM:trisha 05/14/2022 COMMENT GMS stain with matched control was used in the evaluation of this case. Case has been reviewed in consultation with Dr. Woodall who concurs with the above diagnosis. IDC:[id number] MICROSCOPIC DESCRIPTION Slides are reviewed. GROSS DESCRIPTION Received in fixative is one container labeled with the patient's name and designated jejunum. The specimen consists of a segment of small intestine measuring 8.5 cm in length. Attached mesenteric tissue measures up to 1.0 cm in width. Both resection margins are stapled. The serosal surface is congested. The lumen contains a small amount of greenish food material. No mucosal lesion is identified. Also present in the container is a donut-shaped piece of bowel wall measuring 4.0 x 2.0 x 1.0 cm. Multiple samira are noted. Also present in the container are two small pieces of bowel tissue with staple measuring in aggregate 1.5 x 0.5 x 0.5 cm. Screed Operator sections are submitted in four cassettes as follows: 1 ? resection margin, 2 ? bowel wall, 3 ? mesentery, 4 ? donut-shaped piece of tissue and small detached pieces of tissue. / GRAZYNA:trisha 05/13/2022 TC:5 CPT: 10147, 61118
[2022-05-13] MEDS: Phenylephrine 1 MG/10 ML SYRINGE IV (04:53)
--- NOTE | 2022-05-13 04:55 | ED.RN ---
OR CHECK LIST NOT COMPLETED,SURGEON AT BEDSIDE AND PT EMERGENTLY TAKEN TO SURGURY. 0441 FENTANYL INCREASED TO 50MCG AND A 20 MG DIPRIVAN IV PUSH GIVEN BY STEVE BOWENS.
--- NOTE | 2022-05-13 04:58 | ED.RN ---
0444 PT TAKEN TO OR WITH [place] RT,DR HUNTER AND DR ABREU ACCOMPANIED LONG WITH THIS NURSE.
--- NOTE | 2022-05-13 06:09 | OP.PCM_ITS ---
Report of Operation Date of Procedure: 05/13/22 Pre-Operative Diagnosis: recurrent Incarcerated left inguinal hernia, small bow el obstruction, sepsis, aspiration PNA Post-Operative Diagnosis: Strangulated left inguinal hernia, small bowel obstruction, sepsis, aspiration PNA Surgery/Procedure Performed:: Diagnostic laparoscopy, reduction of recurrent left inguinal hernia, small bowel resection and anastomosis. Surgeon: Tahmina Wayne powertrain design engineer: Nik Rosa Type of Anesthesia: General/Supplemental Anesthesiologist: Ke Pedraza Special Medications: Zithromax and ceftriaxone IV x1 in ER due to asp pneumonia Specimen's removed: Jejunum 9 cm Estimated Blood Loss (mL): 10 cc Fluids Replaced: Per anesthesia Description of Procedure: To the operating room placed supine on the operating table. Patient was previously intubated in ER also had a Isbell placed in ER and a right IJ in place. Patient was also given azithromycin/ceftriaxone IV for pneumonia in ER. Abdomen was prepped and draped in usual sterile fashion with chlorhexidine. Incision was made with a 15 blade scalpel below the umbilicus. This was deepened and fascia was elevated and incised?under direct visualization. Jaeger trocar was placed. Abdomen was insufflated to 12 to 15 mmHg. Patient tolerated insufflation well. No injuries were noted upon entry. Noted to be dilated small bowel with transition in the left inguinal indirect hernia. Additional 5 mm trocars were placed in the right lower quadrant and left lower quadrant. The small bowel was able to be reduced with external pressure as well as traction laparoscopically from that indirect left inguinal hernia. No attempts at this time were made to close the defect. This small bowel was monitored there was area of serosal tear and an area of stricture and questionable viability thus converted to laparotomy. 10 blade scalpel was used to enlarge the infraumbilical incision. This was deepened with electrocautery to the fascia. Medium wound protector was placed. The area of jejunum was delivered into the incision. ANTHONY 75 stapler was used to divide the small bowel on either side of the small bowel with questionable stricture/viability. Stapler was used on the antimesenteric borders for the anastomosis along with a TX 60. This was oversewn with 3-0 silk Lembert sutures. The mesenteric defect was closed with 3-0 Vicryl. Anastomosis assessed to be widely patent. Bowel was reduced back into the abdomen. The wound protector removed. Gloves were changed. Fascia was closed with 0 PDS suture. Incision was irrigated. Skin was closed with interrupted 4-0 Monocryl sutures and Steri-Strips. Telfa OpSite were placed. Patient remained intubated as she was on 10 of PEEP and only oxygenating at 85- 90% in the OR. Patient was taken intubated to the ICU in critical condition. Complications none
--- NOTE | 2022-05-13 06:14 | RAD_ITS ---
INDICATION: intubation and NG -- icu EXAMINATION/TECHNIQUE: X-RAY - XR Chest 1 View AP portable. 6:39 AM COMPARISON: 05/12/2022. FINDINGS: LINES/DEVICES: Tip of the endotracheal tube 5 cm above the garfield. NG tube tip in the very proximal stomach, with side hole in the distal esophagus. Central venous catheter unchanged. LUNGS: Lungs are hyperinflated. Consolidation right perihilar and right lung base increased. Alveolar infiltrates left perihilar and left lung base not significantly changed. No pneumothorax. MEDIASTINUM: Unremarkable. CARDIAC SILHOUETTE: Not enlarged. BONES AND SOFT TISSUES: No acute abnormalities. RAD/Chest 1 View (Portable) IMPRESSION: 1. Satisfactory ET tube position. NG tube as described. 2. Increased consolidation on the right. Little change in the infiltrates on the left. Electronically Signed: Brittnee Lorenz MD at 7:39 EDT ,
[2022-05-13] MEDS: Propofol 10MG/Ml 1,000 MG/100 ML Bottle 3.1 MG CONT INF (06:48)
[2022-05-13 06:50] LABS: Hematocrit 39.4 % (37-47); Hemoglobin 13.6 g/dL (12.0-15.0); Mean Corp Hgb Conc 34.5 g/dL (32-36); Mean Corpuscular Volume 89.7 fL (81-99); NRBC Flagged by Analyzer 0 % (0-5); POSITIVE MORPHOLOGY YES; Platelet Count 283 K/mm3 (150-450); RBC Distribution Width CV 11.8 % (11.6-14.6); RBC Distribution Width SD 38.5 fl (35.1-43.9); Red Blood Count 4.39 M/mm3 (4.2-5.4); White Blood Count 12.6 K/mm3 (4.4-11.0)
[2022-05-13 06:51] LABS: Differential Indicated SCAN CRITERIA MET
[2022-05-13] MEDS: Phenylephrine 10 MG/ML Vial IV (07:09)
[2022-05-13 07:13] LABS: Scan Smear per Review Criteria MANUAL DIFF; Total Cells Counted 100 (MANUAL DIFF)
[2022-05-13 07:18] LABS: Anion Gap 9 (5-15); BUN 93 mg/dL (7-18); BUN/Creat Ratio 49.2 RATIO (10-20); Calcium,Total 8.2 mg/dL (8.5-10.1); Chloride 89 mmol/L (98-107); Creatinine, Serum 1.89 mg/dL (0.55-1.02); EST Glomerular Filtration Rate 29 mL/min (>60); Est Glom Filt Rate - Afr Amer 35 mL/min (>60); Estimated Creatinine Clearance 25.66 ml/min; Glucose 104 mg/dL (74-106); Magnesium 2.2 mg/dL (1.6-2.6); Metamyelocyte 18 % (0-1); Myelocyte 6 % (0-0); Neutrophil-Band 46 % (0-5); Neutrophil-Segmented 20 % (47-70); Potassium 4.2 mmol/L (3.5-5.1); Sodium Level 126 mmol/L (136-145); Thyroid Stim Hormone (TSH) 0.61 uIU/mL (0.358-3.74)
[2022-05-13 07:19] LABS: Lymphocyte 7 % (19-41); Monocyte 3 % (0-10); Platelet Estimate ADEQUATE (ADEQ)
[2022-05-13 07:21] LABS: Absolute Lymphocyte Count 0.88 X10^3/uL (0.83-4.51); Absolute Neutrophil Count 8.3 X10^3/uL (2.0-7.7); Lymphocyte # 0.88 X10^3/ul (0.83-4.51); Neutrophil # 8.29 X10^3/uL (2.7-7.7); Red Cell Morphology NORM C+C NORMAL (NORM C&C)
[2022-05-13 07:54] LABS: CPK Total, Creatine Kinase 264 U/L (26-192); Triglycerides 64 mg/dL
[2022-05-13 08:01] LABS: Base Excess -1 mmol/L (-2 to +2); Bicarbonate 23.5 mmol/L (22-26); Blood Gas Specimen Type ART; FI02 90; Mode AC; O2 Delivery Device Adult Vent; PEEP 14; PO2 69 mmHG (75-100); RR 16; SITE R Brach; SO2 94 % (95-99); Total Carbon Dioxide 25 mmol/L; Vt 400; pCO2 35.8 mmHg (35-45); pH 7.43 (7.35-7.45)
[2022-05-13 08:15] LABS: Bedside Glucose 84 mg/dL (74-106)
[2022-05-13 08:18] LABS: Troponin-I HS 53 pg/mL (3.0-54.0)
--- NOTE | 2022-05-13 08:30 | RAD_ITS ---
STUDY: X-RAY - ABDOMEN/PELVIS REASON FOR EXAM: Female, 56 years old. Enteric tube placement TECHNIQUE: Single AP view of the abdomen / pelvis. COMPARISON: CT 05/13/2022 FINDINGS: There is an enteric tube noted with its tip in the proximal stomach. However, the side port is above the GE junction. This should be advanced 5 to 10 cm. There are dilated loops of small bowel in the visualized upper abdomen. This is stable when compared with the prior CT. There are stable patchy airspace opacities in the visualized lung mccoy, right greater than left. The visualized osseous structures are within normal limits. RAD/Abdomen Single View (Portable) IMPRESSION: Enteric tube tip in the proximal stomach. However, the side-port is above the GE junction. This should be advanced 5 to 10 cm. Please note at the time of this dictation, a repeat exam has been performed and the tubes in satisfactory position. Stable dilated loops of small bowel in the visualized upper abdomen. Stable patchy airspace opacities in the visualized lower lung mccoy, right greater than left. Electronically Signed: Juanito Sheldon MD at 9:18 EDT ,
--- NOTE | 2022-05-13 08:45 | EX.PCM.CONCC ---
Assessment & Plan Assessment/Plan (1) ARDS (adult respiratory distress syndrome): (2) Aspiration pneumonia: (3) Incarcerated left inguinal hernia: (4) Septic shock: (5) Acute respiratory failure with hypoxia: PLAN: Plan RECOMMENDATIONS: 1. Continue vent at current settings. Possible transition to APRV if oxygenation worsens 2. Volume restrict given ARDS pattern 3. Continue with empiric antibiotics for aspiration 4. Potentially add vasopressin to Levophed 5. Wean oxygen as tolerated. Spontaneous breathing and awakening trials per protocol 6. N.p.o. pending surgery approval IMPRESSIONS: 1. Acute hypoxic respiratory failure secondary to ARDS secondary to aspiration pneumonia Patient with poor dentition indicating a possible high bacterial load. Patient does have bilateral infiltrates and does not appear to be volume overloaded at this time. Patient's PF ratio is less than 100 indicating ARDS. Patient is currently on 14 of PEEP and maintaining saturations. Cannot exclude the need for transition to APRV. ABG shows adequate ventilation on the current settings. Patient will be continued on antibiotics. We will hold off on diuresis as patient is requiring pressors at this time. 2. Septic shock secondary to incarcerated hernia/aspiration pneumonia Patient with mottling of the knees and feet. Patient is on pressors at this time. Cortisol level is significantly elevated. If patient continues to require more Levophed, vasopressin may be necessary. Unclear if stress dose steroids will be effective given elevated cortisol. Patient is on appropriate antibiotics. Cultures have been ordered. 3. Small bowel resection secondary to incarcerated left inguinal hernia POD #0 Discussed with surgery. Patient currently NPO. Patient appears to have achieved hemostasis. Patient is on a fentanyl drip for pain control. Surgery is following. OG has been replaced and appears to be in appropriate position on latest x-ray 4. Acute kidney injury Baseline creatinine appears to be approximately 0.7. Patient presented with creatinine of almost 2. We will continue to watch urine output. Clinical suspicion for ATN secondary to prerenal etiology secondary to problem #2. No indication for renal replacement therapy at this time, but this could be necessary moving forward. 5. Recent inguinal hernia repair/poor history/delayed presentation/poor dentition Complicates care, management, recovery and prognosis. Will obtain an echocardiogram to see if there is a potential cardiac component to current hypotensive episode. Patient is appropriately on Protonix and SCDs for prophylaxis. Patient critical at this time with extremely guarded prognosis. TIME: 45 minutes critical care time spent addressing patient's acute hypoxic respiratory failure, septic shock, acute kidney injury, review of all data and collaboration with care team HPI Consult Data Date of Consult: 05/13/22 HPI Narrative Reason for Consultation: Respiratory failure HPI Narrative: GONZALES HOBSON is a 56 F, with no reported past medical history outside of an inguinal hernia repair recently, who presents to [facility] on 05/12/2022 via EMS from home. EMS was reportedly called to the patient's home and the patient was found unresponsive on the kitchen floor. Family reportedly had noted dizziness and went to the ground, but no fall. EMS had reported a blood glucose of 134 and placed an EJ to start IV fluids. Patient was noted to be cool to the touch. In the ER, patient was hypothermic at 86.7 ?F, but normotensive. Patient started to become hypotensive and required progressive increasing amounts of supplemental oxygen. Patient also became very tachypneic with a respiratory rate of 38 despite Airvo therapy. Laboratory work-up showed a white blood cell count of 16.5 with 31% bands, hemoglobin of 16.5 and platelets of 394. Chemistries showed a sodium of 129, chloride of 84 and potassium of 2.6. Patient noted to have elevated BUN of 99 and creatinine of 2.1. Liver enzymes were relatively unremarkable. Serum osmolality was noted to be elevated at 311 with a uric acid of 18.7 and lactate of 4.3. UA was unremarkable. An ABG on 2 L showed adequate oxygenation and ventilation. A CT of the head was unremarkable, but chest x-ray showed bilateral infiltrates consistent with pneumonia. Patient had a CT of the abdomen and pelvis showing a severely dilated stomach and small bowel. Patient also noted to have what appeared to be an incarcerated hernia with subsequent small bowel obstruction. Patient reportedly responded to resuscitation efforts and was conversant for some time. Patient reportedly had not been eating for a week and had decreased p.o. intake. Patient's sister reportedly reported increased cough over the last 2 days. Given hypotension, patient did have a central line placed in the ER. General surgery was contacted and the patient was being prepped to be taken to the OR early this morning. At approximately 6:30 AM, patient presented from the operating room intubated, hypoxic and hypotensive. Did discuss with anesthesia and surgery at the bedside. Patient was placed on 14 of PEEP with 100% FiO2 with improvement in saturations. Patient did require a burst of Eris-Synephrine while Levophed was prepared. Patient was some spontaneous movement at that time, but not following commands and unable to provide any additional review of systems or history. [facility] Medical History Carpal tunnel syndrome Heart murmur Heartburn History of irregular heartbeat History of stress test Leg cramps Post-menopausal Reducible left inguinal hernia Seasonal allergies Smoker Wears glasses Home Medications biotin 10,000 mcg chewable tablet (Hair, Skin and Nails (biotin)) 10,000 mcg PO DAILY 03/29/22 [History Last Taken Unknown] calcium 600 mg capsule 600 mg PO DAILY 03/29/22 [History Last Taken Unknown] cholecalciferol (vitamin D3) 25 mcg (1,000 unit) chewable tablet (Vitamin D3) 25 mcg PO DAILY 03/29/22 [History Last Taken Unknown] multivitamin 1 cap PO DAILY 03/29/22 [History Last Taken Unknown] Allergy/AdvReac Type Severity Reaction Status Date / Time No Known Allergies Allergy Unverified 04/30/22 13:32 Family History Mother Myocardial infarction, Onset Age: 40 Anxiety and depression Father CVA (cerebral vascular accident) Sister Thyroid disorder Aunt Breast cancer Surgical History History of appendectomy Hx of colonoscopy S/P left inguinal hernia repair Social History Smoking Status: Current every day smoker tobacco type: cigarettes Tobacco: How many years used: 20 alcohol intake: never substance use type: does not use what type of physical activity do you participate in: walking frequency: 1-2 times per week ROS Review of Systems ROS Unobtainable: due to endotracheal tube Physical Exam Const Constitutional Narrative: Intubated and sedated. Fair vent synchrony. Appears older than stated age. General Appearance: patient mechanically ventilated HEENT normocephalic and head/scalp atraumatic HEENT Narrative: Poor dentition. NG in place during my initial evaluation, but this has been transitioned to an OG during bedside management Mouth: endotracheal tube in place and OG tube in place Eyes conjunctivae normal Eyes Narrative: Sluggish pupils noted. Neck no lymphadenopathy Neck Narrative: Right IJ clean, dry and intact Lymph Lymphatic: no lymphadenopathy noted Chest inspection of chest normal Resp Resp Narrative: Course breath sounds Auscultation: rhonchi throughout; Negative for rales or wheezes Cardio S1 normal heart sound, S2 normal heart sound, no murmurs, no rub and no gallops Rate: tachycardic GI soft to palpation GI Narrative: Surgical site is clean, dry and intact Extremity no clubbing, cyanosis or edema Skin Skin Narrative: Mottling noted of the knees and feet General Skin Exam: mottling Neuro Neuro Narrative: Some spontaneous movement noted. Sensation appears to be intact Psych Mood & Affect: flat affect Medical Records Data Attestation: I reviewed the patient's medical records Lab / Micro Data Attestation: I reviewed the patient's lab results. Result Diagrams: 05/13/22 06:35 05/13/22 06:35 Labs: Laboratory Results - last 24 hr 05/12/22 22:29: WBC 16.5 H, RBC 5.28, Hgb 16.5 H, Hct 47.6 H, MCV 90.2, MCH 31.3, MCHC 34.7, RDW Std Deviation 38.5, RDW Coeff of Audrey 11.7, Plt Count 394, MPV 9.8, Immature Gran % (Auto) DEEP FAT FRY COOK, Neut % (Auto) DEEP FAT FRY COOK, Lymph % (Auto) DEEP FAT FRY COOK, Long % (Auto) DEEP FAT FRY COOK, Eos % (Auto) DEEP FAT FRY COOK, Baso % (Auto) DEEP FAT FRY COOK, Absolute Neuts (auto) 14.5 H, Absolute Lymphs (auto) 1.16, Total Counted 100, Neutrophils % (Manual) 33 L, Band Neutrophils % 31 H, Lymphocytes % (Manual) 7 L, Monocytes % (Manual) 4, Metamyelocytes % 22 H, Myelocytes % 1 H, Promyelocytes % 1 H, Other Cells % 1, Nucleated RBC % 0, Diff Path Review May foll, Platelet Estimate ADEQUATE, RBC Morphology N CYTIC, Polychromasia RARE 05/12/22 22:29: PT 14.1, INR 1.1, APTT 24.2 05/12/22 22:29: Sodium 129 L, Potassium 2.6 L*, Chloride 84 L, Carbon Dioxide 26.0, Anion Gap 19 H, BUN 99 H, Creatinine 2.10 H, Estim Creat Clear Calc 23.10, Est GFR (MDRD) Af Amer 31 L, Est GFR (MDRD) Non-Af 26 L, BUN/Creatinine Ratio 47.1 H, Glucose 123 H, Calcium 9.5, Total Bilirubin 0.70, AST 13 L, ALT 20, Alkaline Phosphatase 59, Troponin I High Sens 104 H, Total Protein 5.8 L, Albumin 2.3 L, Globulin 3.5, Albumin/Globulin Ratio 0.7 L, TSH 0.43 05/12/22 22:29: Lactic Acid Cancelled 05/12/22 22:29: Serum Osmolality 311 H 05/12/22 22:29: Uric Acid 18.7 H 05/12/22 22:30: Urine Color Yellow, Urine Clarity Clear, Urine pH 5.0, Ur Specific [place] 1.020, Urine Protein 15 H, Urine Glucose (UA) Normal, Urine Ketones 15 H, Urine Occult Blood 10 H, Urine Nitrite Negative, Urine Bilirubin Negative, Urine Urobilinogen Normal, Ur Leukocyte Esterase Negative, Urine RBC 0 SEEN, Urine WBC 0 SEEN, Ur Squamous Epith Cells 0 SEEN, Urine Bacteria RARE, Urine Mucus 0 SEEN 05/12/22 23:36: Lactic Acid 4.3 H* 05/13/22 00:46: Urine Osmolality 513, Ur Random Sodium < 5 05/13/22 03:33: Lactic Acid 3.4 H* 05/13/22 06:35: Magnesium 2.2 05/13/22 06:35: WBC 12.6 H, RBC 4.39, Hgb 13.6, Hct 39.4, MCV 89.7, MCH 31.0, MCHC 34.5, RDW Std Deviation 38.5, RDW Coeff of Audrey 11.8, Plt Count 283, MPV 10.0, Immature Gran % (Auto) DEEP FAT FRY COOK, Neut % (Auto) DEEP FAT FRY COOK, Lymph % (Auto) DEEP FAT FRY COOK, Long % (Auto) DEEP FAT FRY COOK, Eos % (Auto) DEEP FAT FRY COOK, Baso % (Auto) DEEP FAT FRY COOK, Absolute Neuts (auto) 8.3 H, Absolute Lymphs (auto) 0.88, Total Counted 100, Neutrophils % (Manual) 20 L, Band Neutrophils % 46 H, Lymphocytes % (Manual) 7 L, Monocytes % (Manual) 3, Metamyelocytes % 18 H, Myelocytes % 6 H, Nucleated RBC % 0, Diff Path Review May foll, Platelet Estimate ADEQUATE, RBC Morphology NORM C+C 05/13/22 06:35: Sodium 126 L, Potassium 4.2, Chloride 89 L, Carbon Dioxide 28.0, Anion Gap 9, BUN 93 H, Creatinine 1.89 H, Estim Creat Clear Calc 25.66, Est GFR (MDRD) Af Amer 35 L, Est GFR (MDRD) Non-Af 29 L, BUN/Creatinine Ratio 49.2 H, Glucose 104, Calcium 8.2 L, TSH 0.61 05/13/22 06:35: Cortisol 70.20 H 05/13/22 06:35: Troponin I High Sens 53 05/13/22 06:35: Total Creatine Kinase 264 H, Triglycerides 64 05/13/22 07:57: POC Glucose 84 Micro: Microbiology 05/13/22 00:46 Urine Catheter - Catheter Legionella Antigen - Final 05/13/22 00:46 Urine Catheter - Catheter Streptococcus pneumoniae Antigen (M - Final 05/12/22 22:30 Nasal Secretion SARS-CoV-2 & FLU Antigen (Rapid) - Final ABG Data ABG results: ABG 05/12/22 05/13/22 22:24 07:52 Specimen Type ART ART Sample Site L Brach R Brach pH 7.34 L 7.43 Bicarbonate Actual 22.5 23.5 Total CO2 24 25 Base Excess -3 L -1 O2 Saturation 71 L 94 L O2 % 90 ABG pCO2 42.1 35.8 ABG pO2 39 L* 69 L Stiven Test Positive Respiration Rate 16 O2 Delivery Device Cannula Adult Vent Liter Flow 2.0 Vent Mode AC Tidal Volume 400 POC PEEP 14 Crit Call To/Read Back Yes Blood Gas Notified Whom Le Attestation: I personally reviewed and interpreted this ABG as follows: (Relatively normal acid-base, but significantly increased AA gradient with a PF ratio less than 100) Radiology Impression Brain CT 05/12/22 22:11 IMPRESSION: No acute abnormality. CT angiogram and/or MRI may be helpful to evaluate for acute infarct as clinically indicated. Electronically Signed: Brittnee Lorenz MD at 23:52 EDT , Chest X-Ray 05/12/22 22:12 IMPRESSION: Central venous catheter as described. Bilateral infiltrates consistent with pneumonia. Electronically Signed: Brittnee Lorenz MD at 0:16 EDT , Abdomen/Pelvis CT 05/13/22 01:09 IMPRESSION: 1. Small bowel obstruction secondary to left inguinal hernia containing small bowel with findings that suggest incarceration. Marked gastric dilatation and small bowel dilatation. 2. Distended distal esophagus. Patient may be at risk for aspiration. 3. Extensive consolidation in the lower lungs likely pneumonia. Electronically Signed: Brittnee Lorenz MD at 2:51 EDT , ADDENDUM: 05/13/22 0300 IMPRESSION: 1. Small bowel obstruction secondary to left inguinal hernia containing small bowel with findings that suggest incarceration. Marked gastric dilatation and small bowel dilatation. 2. Distended distal esophagus. Patient may be at risk for aspiration. 3. Extensive consolidation in the lower lungs likely pneumonia. N.B. : The above Results were Read Back by Brittnee Lorenz MD to Donaldo Mckeon MD, and understanding confirmed on 05/13/2022 02:53:44 (ET). Electronically Signed: Brittnee Lorenz MD at 2:51 EDT , Chest X-Ray 05/13/22 06:14 IMPRESSION: 1. Satisfactory ET tube position. NG tube as described. 2. Increased consolidation on the right. Little change in the infiltrates on the left. Electronically Signed: Brittnee Lorenz MD at 7:39 EDT , Charges/Coding Procedures Hospitalists Procedures: [id number] [facility] H[facility]
--- NOTE | 2022-05-13 08:47 | RAD_ITS ---
STUDY: X-RAY - ABDOMEN/PELVIS REASON FOR EXAM: Female, 56 years old. Enteric tube placement. TECHNIQUE: Single AP view of the abdomen / pelvis. COMPARISON: 05/13/2022 FINDINGS: The enteric tube tip is in the mid to distal stomach. The remainder of the exam is unchanged. RAD/Abdomen Single View (Portable) IMPRESSION: Satisfactory position of the enteric tube. Electronically Signed: Juanito Sheldon MD at 9:18 EDT ,
[2022-05-13] MEDS: CHLORHEXIDINE GLUC 2% CLOTH 1 EACH TOWELETTE TOPICAL (08:50)
[2022-05-13] MEDS: Chlorhexidine 15 ML PO ×2 (08:50→22:35)
[2022-05-13 08:52] LABS: Troponin-I HS 67 pg/mL (3.0-54.0)
--- NOTE | 2022-05-13 09:54 | ECHOD_ITS ---
Reason For Study: SHOCK Procedure This was a 2D Doppler, Color Flow transthoracic echocardiogram. The study was technically difficult. The study was technically limited. Exam performed portable in ICU/CCU. Left Ventricle Normal LV size. The estimated ejection fraction is 65 %. Unable to assess diastolic dysfunction. Right Ventricle Normal RV size. Normal systolic function. Atria Normal left atrium. Normal right atrium. No doppler evidence for ASD. Mitral Valve There is no mitral valve stenosis. No mitral valve insufficiency. Tricuspid Valve The tricuspid valve is not well visualized. Trivial tricuspid valve insufficiency. Unable to estimate RV systolic pressure due to insufficient tricuspid regurgitant envelope. Aortic Valve The aortic valve is not well visualized. There is no aortic stenosis. No aortic valve insufficiency. Pulmonic Valve There is no pulmonic valvular stenosis. No pulmonic valve insufficiency. Great Vessels Normal aortic root. Pericardium/Pleural No pericardial effusion. MMode/2D Measurements & Calculations LVIDd: 3.3 cm IVSd: 0.78 cm Ao root diam: 2.9 cm LVIDs: 2.4 cm LVPWd: 0.78 cm FS: 28.5 % Time Measurements MV dec time: 0.20 sec Doppler Measurements & Calculations MV E max alfonso: 47.1 cm/sec Lat Peak E' Alfonso: 4.5 cm/sec Med Peak E' Alfonso: 4.5 cm/sec MV A max alfonso: 60.9 cm/sec E/E' lat: 10.6 E/E' med: 10.6 MV E/A: 0.77 PA V2 max: 91.6 cm/sec MV dec slope: 254.6 cm/sec2 ECHO/Echo Complete Interpretation Summary Technically limited study The estimated ejection fraction is 65 %. Unable to assess diastolic dysfunction. Ordering Physician: René Gutierrez Referring Physician: Lance Daley Performed By: Char Alarcon RDCS, RVT
[2022-05-13] MEDS: Ipratropium/Albuterol Sulfate 3 ML AMPUL.NEB INHALATION ×2 (12:06→19:05)
[2022-05-13 12:11] LABS: Pathologist Review Reviewed
[2022-05-13 12:16] LABS: Pathologist Review Reviewed
[2022-05-13 12:30] LABS: M R Staph aureus DNA By PCR Negative (Negative); Probe Check PASS; Specimen Processing Control PASS
--- NOTE | 2022-05-13 13:11 | PCM.PN.SRG ---
Subjective Subjective Patient still intubated and sedated, on 15 of levo down from 20, PEEP is still on 1480% FiO2. Dr. Gutierrez is concern for developing ARDS due to aspiration pneumonia Objective Data Objective Data Vital Signs: Vital Signs Temp Pulse Resp BP Pulse Ox O2 Del Method O2 Flow Rate 100.0 F H 109 H 25 H 86/59 L 95 Mechanical Ventilator 15 05/13/22 12:00 05/13/22 12:06 05/13/22 12:06 05/13/22 12:00 05/13/22 12:06 05/13/22 12:00 05/12/22 23:01 FiO2 80 05/13/22 12:06 Oxygen Flow Rate (L/min) 15 Oxygen Delivery Method Mechanical Ventilator Weight: 106 lb 8 oz Body Mass Index (BMI) 19.5 Intake & Output: Intake and Output for Last 24 Hours 05/11/22 05/12/22 05/13/22 23:59 23:59 23:59 Intake Total 1000 / 1000 3090.87 / 3090.87 Output Total 2620 / 2620 Balance 1000 / 1000 470.87 / 470.87 Lab / Micro Data Result Diagrams: 05/13/22 06:35 05/13/22 06:35 Labs: Laboratory Results - last 24 hr 05/12/22 22:29: WBC 16.5 H, RBC 5.28, Hgb 16.5 H, Hct 47.6 H, MCV 90.2, MCH 31.3, MCHC 34.7, RDW Std Deviation 38.5, RDW Coeff of Audrey 11.7, Plt Count 394, MPV 9.8, Immature Gran % (Auto) LIDDING MACHINE OPERATOR, Neut % (Auto) LIDDING MACHINE OPERATOR, Lymph % (Auto) LIDDING MACHINE OPERATOR, Turner % (Auto) LIDDING MACHINE OPERATOR, Eos % (Auto) LIDDING MACHINE OPERATOR, Baso % (Auto) LIDDING MACHINE OPERATOR, Absolute Neuts (auto) 14.5 H, Absolute Lymphs (auto) 1.16, Total Counted 100, Neutrophils % (Manual) 33 L, Band Neutrophils % 31 H, Lymphocytes % (Manual) 7 L, Monocytes % (Manual) 4, Metamyelocytes % 22 H, Myelocytes % 1 H, Promyelocytes % 1 H, Other Cells % 1, Nucleated RBC % 0, Diff Path Review Reviewed, Platelet Estimate ADEQUATE, RBC Morphology N CYTIC, Polychromasia RARE 05/12/22 22:29: PT 14.1, INR 1.1, APTT 24.2 05/12/22 22:29: Sodium 129 L, Potassium 2.6 L*, Chloride 84 L, Carbon Dioxide 26.0, Anion Gap 19 H, BUN 99 H, Creatinine 2.10 H, Estim Creat Clear Calc 23.10, Est GFR (MDRD) Af Amer 31 L, Est GFR (MDRD) Non-Af 26 L, BUN/Creatinine Ratio 47.1 H, Glucose 123 H, Calcium 9.5, Total Bilirubin 0.70, AST 13 L, ALT 20, Alkaline Phosphatase 59, Troponin I High Sens 104 H, Total Protein 5.8 L, Albumin 2.3 L, Globulin 3.5, Albumin/Globulin Ratio 0.7 L, TSH 0.43 05/12/22 22:29: Lactic Acid Cancelled 05/12/22 22:29: Serum Osmolality 311 H 05/12/22 22:29: Uric Acid 18.7 H 05/12/22 22:30: Urine Color Yellow, Urine Clarity Clear, Urine pH 5.0, Ur Specific [place] 1.020, Urine Protein 15 H, Urine Glucose (UA) Normal, Urine Ketones 15 H, Urine Occult Blood 10 H, Urine Nitrite Negative, Urine Bilirubin Negative, Urine Urobilinogen Normal, Ur Leukocyte Esterase Negative, Urine RBC 0 SEEN, Urine WBC 0 SEEN, Ur Squamous Epith Cells 0 SEEN, Urine Bacteria RARE, Urine Mucus 0 SEEN 05/12/22 23:36: Lactic Acid 4.3 H* 05/13/22 00:46: Urine Osmolality 513, Ur Random Sodium < 5 05/13/22 03:33: Lactic Acid 3.4 H* 05/13/22 06:35: Magnesium 2.2 05/13/22 06:35: WBC 12.6 H, RBC 4.39, Hgb 13.6, Hct 39.4, MCV 89.7, MCH 31.0, MCHC 34.5, RDW Std Deviation 38.5, RDW Coeff of Audrey 11.8, Plt Count 283, MPV 10.0, Immature Gran % (Auto) LIDDING MACHINE OPERATOR, Neut % (Auto) LIDDING MACHINE OPERATOR, Lymph % (Auto) LIDDING MACHINE OPERATOR, Turner % (Auto) LIDDING MACHINE OPERATOR, Eos % (Auto) LIDDING MACHINE OPERATOR, Baso % (Auto) LIDDING MACHINE OPERATOR, Absolute Neuts (auto) 8.3 H, Absolute Lymphs (auto) 0.88, Total Counted 100, Neutrophils % (Manual) 20 L, Band Neutrophils % 46 H, Lymphocytes % (Manual) 7 L, Monocytes % (Manual) 3, Metamyelocytes % 18 H, Myelocytes % 6 H, Nucleated RBC % 0, Diff Path Review Reviewed, Platelet Estimate ADEQUATE, RBC Morphology NORM C+C 05/13/22 06:35: Sodium 126 L, Potassium 4.2, Chloride 89 L, Carbon Dioxide 28.0, Anion Gap 9, BUN 93 H, Creatinine 1.89 H, Estim Creat Clear Calc 25.66, Est GFR (MDRD) Af Amer 35 L, Est GFR (MDRD) Non-Af 29 L, BUN/Creatinine Ratio 49.2 H, Glucose 104, Calcium 8.2 L, TSH 0.61 05/13/22 06:35: Cortisol 70.20 H 05/13/22 06:35: Troponin I High Sens 53 05/13/22 06:35: Total Creatine Kinase 264 H, Triglycerides 64 05/13/22 07:57: POC Glucose 84 05/13/22 08:20: MRSA (PCR) Negative 05/13/22 08:25: Troponin I High Sens 67 H Micro: Microbiology 05/13/22 09:30 Sputum, Induced/Lukens Gram Stain - Final 05/12/22 22:30 Urine, Catheterized Urine Culture - Preliminary Culture exhibits no growth. 05/13/22 00:46 Urine Catheter - Catheter Legionella Antigen - Final 05/13/22 00:46 Urine Catheter - Catheter Streptococcus pneumoniae Antigen (M - Final 05/12/22 22:30 Nasal Secretion SARS-CoV-2 & FLU Antigen (Rapid) - Final ABG Data ABG results: ABG 05/12/22 05/13/22 22:24 07:52 Specimen Type ART ART Sample Site L Brach R Brach pH 7.34 L 7.43 Bicarbonate Actual 22.5 23.5 Total CO2 24 25 Base Excess -3 L -1 O2 Saturation 71 L 94 L O2 % 90 ABG pCO2 42.1 35.8 ABG pO2 39 L* 69 L Stiven Test Positive Respiration Rate 16 O2 Delivery Device Cannula Adult Vent Liter Flow 2.0 Vent Mode AC Tidal Volume 400 POC PEEP 14 Crit Call To/Read Back Yes Blood Gas Notified Whom Le Radiography Diagnostic Testing: Radiology Impression Brain CT 05/12/22 22:11 IMPRESSION: No acute abnormality. CT angiogram and/or MRI may be helpful to evaluate for acute infarct as clinically indicated. Electronically Signed: Brittnee Lorenz MD at 23:52 EDT , Chest X-Ray 05/12/22 22:12 IMPRESSION: Central venous catheter as described. Bilateral infiltrates consistent with pneumonia. Electronically Signed: Brittnee Lorenz MD at 0:16 EDT , Abdomen/Pelvis CT 05/13/22 01:09 IMPRESSION: 1. Small bowel obstruction secondary to left inguinal hernia containing small bowel with findings that suggest incarceration. Marked gastric dilatation and small bowel dilatation. 2. Distended distal esophagus. Patient may be at risk for aspiration. 3. Extensive consolidation in the lower lungs likely pneumonia. Electronically Signed: Brittnee Lorenz MD at 2:51 EDT , ADDENDUM: 05/13/22 0300 IMPRESSION: 1. Small bowel obstruction secondary to left inguinal hernia containing small bowel with findings that suggest incarceration. Marked gastric dilatation and small bowel dilatation. 2. Distended distal esophagus. Patient may be at risk for aspiration. 3. Extensive consolidation in the lower lungs likely pneumonia. N.B. : The above Results were Read Back by Brittnee Lorenz MD to Donaldo Mckeon MD, and understanding confirmed on 05/13/2022 02:53:44 (ET). Electronically Signed: Brittnee Lorenz MD at 2:51 EDT , Chest X-Ray 05/13/22 06:14 IMPRESSION: 1. Satisfactory ET tube position. NG tube as described. 2. Increased consolidation on the right. Little change in the infiltrates on the left. Electronically Signed: Brittnee Lorenz MD at 7:39 EDT , KUB X-Ray 05/13/22 08:30 IMPRESSION: Enteric tube tip in the proximal stomach. However, the side-port is above the GE junction. This should be advanced 5 to 10 cm. Please note at the time of this dictation, a repeat exam has been performed and the tubes in satisfactory position. Stable dilated loops of small bowel in the visualized upper abdomen. Stable patchy airspace opacities in the visualized lower lung mccoy, right greater than left. Electronically Signed: Juanito Sheldon MD at 9:18 EDT , KUB X-Ray 05/13/22 08:47 IMPRESSION: Satisfactory position of the enteric tube. Electronically Signed: Juanito Sheldon MD at 9:18 EDT , Physical Exam Narrative Patient is intubated and sedated, OG in place, right IJ triple-lumen catheter in place Resp Resp Narrative: Tachypneic Cardio Rate: tachycardic GI soft to palpation GI Narrative: Left inguinal region no hernia or bulge on exam. Incisions dry and intact small amount of sanguinous drainage. Extremity Extremity Narrative: Distal extremities are cold to touch Assessment & Plan Assessment/Plan (1) S/P exploratory laparotomy: (2) Recurrent inguinal hernia of left side with obstruction: (3) Septic shock: (4) Aspiration pneumonia: (5) Acute respiratory failure with hypoxia: (6) Acute hypokalemia: (7) ROSALIE (acute kidney injury): (8) Acute hyponatremia: PLAN: Plan Patient is in critical condition. Appreciate ICU's help with management of the vent and antibiotics for aspiration pneumonia. Discussed patient's sister that she would be on the ventilator for several days due to aspiration pneumonia, which was seen on admission CT abdomen pelvis. Incisions dressed with OpSite's. Small bowel resection and anastomosis. Keep n.p.o. until bowel function. OG in place. Tahmina Wayne M.D. Pager: [phone] [facility] [address] [place] [address], [address] [place] [address] Office: [phone]
[2022-05-13 13:30] LABS: Troponin-I HS 59 pg/mL (3.0-54.0)
--- NOTE | 2022-05-13 16:09 | CASEMGMT ---
RN CM Assessment: TC to pt sister as pt is vented, introduced self and role to sister, she voices understanding and consents to assessment. Care providers, pharmacy, and demographics verified/updated. Admitting Dx: sepsis secondary to pneumonia PCP:Thuy Specialists:Rosana Walker Pharmacy: [facility] Retail Insurance: Self Pay Prescription Benefit: no LNOK: Britany Gould, sister Living Arrangements: Pt lives with sister in a mobile home with 3 steps to enter without a rail. Pt sister reports pt is very I in ADL's. Transportation: Pt drives self and denies concerns with transportation. DME/HHC/SNF: Pt sister reports she is going to get a shower chair for pt. States pt has no other DME in the home. Pt has no hx of HHC or SNF stays. Pt sister states no further concerns/needs. CM to follow. Advised pt to ask CM if any further question/concerns/needs arise, voices understanding. Pt Sister's Goal: Return Home Plan: TBD
[2022-05-13] MEDS: Acetaminophen 650 MG/20 ML UDC GT ×2 (16:22→23:01)
--- NOTE | 2022-05-13 18:36 | NURSING ---
Fentanyl gtt that was hung in ED not present when this RN arrived to floor at 0710. New fentanyl gtt was hung by travel Jemima RN at 0650.
[2022-05-13] MEDS: 0.9% Normal Saline 1,000 ML 80 ML IV (23:09)
[2022-05-13] MEDS: Propofol 10MG/Ml 1,000 MG/100 ML Bottle 4.6 MG CONT INF (23:26)
[2022-05-14] VITALS (72 sets, daily range): BP systolic 75–135; BP diastolic 54–94; PULSE 85–174; RESP 16–20; TEMP 36.9–38.4; O2SAT 92–98; BMI 19.3
[2022-05-14] MEDS: Ipratropium/Albuterol Sulfate 3 ML AMPUL.NEB INHALATION ×4 (01:10→19:20)
[2022-05-14] MEDS: 0.9% Saline Lock 10 ML Syringe IV ×4 (02:32→06:18)
[2022-05-14 04:13] LABS: Hematocrit 37.5 % (37-47); Hemoglobin 12.6 g/dL (12.0-15.0); Mean Corp Hgb Conc 33.6 g/dL (32-36); Mean Corpuscular Hgb 31.2 pg (27.0-32.0); Mean Corpuscular Volume 92.8 fL (81-99); Mean Platelet Vol. 9.9 fl (6.2-12.0); NRBC Flagged by Analyzer 0 % (0-5); POSITIVE COUNT YES; POSITIVE DIFFERENTIAL YES; POSITIVE MORPHOLOGY YES; Platelet Count 250 K/mm3 (150-450); RBC Distribution Width CV 12.5 % (11.6-14.6); RBC Distribution Width SD 42.8 fl (35.1-43.9); Red Blood Count 4.04 M/mm3 (4.2-5.4); White Blood Count 40.9 K/mm3 (4.4-11.0)
[2022-05-14 04:19] LABS: Differential Indicated SCAN CRITERIA MET
[2022-05-14 04:38] LABS: Anion Gap 12 (5-15); BUN 108 mg/dL (7-18); BUN/Creat Ratio 34.3 RATIO (10-20); Calcium,Total 8.5 mg/dL (8.5-10.1); Chloride 95 mmol/L (98-107); Creatinine, Serum 3.15 mg/dL (0.55-1.02); EST Glomerular Filtration Rate 16 mL/min (>60); Est Glom Filt Rate - Afr Amer 19 mL/min (>60); Estimated Creatinine Clearance 14.69 ml/min; Glucose 88 mg/dL (74-106); Potassium 4.6 mmol/L (3.5-5.1); Sodium Level 130 mmol/L (136-145)
[2022-05-14 04:44] LABS: Lymphocyte 4 % (19-41); Metamyelocyte 2 % (0-1); Monocyte 3 % (0-10); Neutrophil-Band 25 % (0-5); Neutrophil-Segmented 66 % (47-70); Total Cells Counted 100 (MANUAL DIFF)
[2022-05-14 04:48] LABS: Burr Cells 1+; Platelet Estimate MOD DEC (ADEQ)
[2022-05-14 04:50] LABS: Red Cell Morphology N CHROM NORMAL (NORM C&C)
[2022-05-14 04:51] LABS: Scan Smear per Review Criteria MANUAL DIFF
[2022-05-14 04:54] LABS: Absolute Neutrophil Count 37.2 X10^3/uL (2.0-7.7); Lymphocyte # 1.64 X10^3/ul (0.83-4.51)
--- NOTE | 2022-05-14 04:54 | PCM.PN.BLA ---
Progress Note Nurse reported patient has had a fever overnight and her white count has jumped to more than 40,000. Nurse is requesting blood cultures. Will order blood cultures. Check lactic acid. Stop azithromycin and ceftriaxone. Start patient on vancomycin and Zosyn. Strep pneumoniae and Legionella urine antigen negative. Check mycoplasma antibody
[2022-05-14 04:55] LABS: Absolute Lymphocyte Count 1.64 X10^3/uL (0.83-4.51)
--- NOTE | 2022-05-14 05:18 | RAD_ITS ---
Views INDICATION: Fever EXAMINATION/TECHNIQUE: X-RAY - XR Chest 1 View COMPARISON: 05/13/2022. FINDINGS: LINES/DEVICES: Tip of the endotracheal tube 5 cm above the garfield. NG tube tip in the stomach. Central venous catheter unchanged. LUNGS: Lungs are hyperinflated. Ill-defined airspace opacities in the lung bases not significantly changed. No pneumothorax. MEDIASTINUM: Unremarkable. CARDIAC SILHOUETTE: Not enlarged. BONES AND SOFT TISSUES: No acute abnormalities. RAD/Chest 1 View (Portable) IMPRESSION: 1. Satisfactory ET tube position. NG tube as described. 2. Stable bilateral lower lobe pneumonia. Electronically Signed: Mil Jones MD at 7:12 EDT ,
--- NOTE | 2022-05-14 05:18 | RAD_ITS ---
INDICATION: fever EXAMINATION/TECHNIQUE: X-RAY - XR Abdomen 1 View COMPARISON: FINDINGS: An NG tube is seen its tip is below the diaphragm is in good position. BOWEL GAS PATTERN: Non-obstructive. No bowel or stomach distention. FREE AIR: Not assessed on a single supine view. ORGANOMEGALY: Not seen. CALCIFICATIONS: No abnormal calcifications observed. LOWER CHEST: No acute pathology. BONES AND SOFT TISSUES: No acute pathology. RAD/Abdomen Single View (Portable) IMPRESSION: Non-obstructive bowel gas pattern. Electronically Signed: Mil Jones MD at 5:58 EDT ,
[2022-05-14 06:00] LABS: Lactic Acid 3.6 mmol/L (0.4-1.9)
--- NOTE | 2022-05-14 06:03 | PCM.RX.CS ---
Consult Pharmacy has been consulted to manage selected antiobiotic: Vancomycin Type of Consult: New start Prior Doses of Antibiotics Received/Current Regimen: Medications Vancomycin HCl 1,250 mg/ (Sodium Chloride) 275 mls @ 167 mls/hr IV X1 ONE Stop: 05/14/22 07:08 Labs: Sodium 130 mmol/L (136-145) L 05/14/22 04:05 Potassium 4.6 mmol/L (3.5-5.1) 05/14/22 04:05 Chloride 95 mmol/L (98-107) L 05/14/22 04:05 Carbon Dioxide 23.0 mmol/L (21.0-32.0) 05/14/22 04:05 Anion Gap 12 (5-15) 05/14/22 04:05 BUN 108 mg/dL (7-18) H* 05/14/22 04:05 Creatinine 3.15 mg/dL (0.55-1.02) H 05/14/22 04:05 Est GFR (MDRD) Af Amer 19 mL/min (>60) L 05/14/22 04:05 Est GFR (MDRD) Non-Af 16 mL/min (>60) L 05/14/22 04:05 BUN/Creatinine Ratio 34.3 RATIO (10-20) H 05/14/22 04:05 Glucose 88 mg/dL (74-106) 05/14/22 04:05 Microbiology: Microbiology 05/13/22 09:30 Sputum, Induced/Lukens Gram Stain - Final 05/12/22 22:30 Urine, Catheterized Urine Culture - Preliminary Culture exhibits no growth. 05/13/22 00:46 Urine Catheter - Catheter Legionella Antigen - Final 05/13/22 00:46 Urine Catheter - Catheter Streptococcus pneumoniae Antigen (M - Final 05/12/22 22:30 Nasal Secretion SARS-CoV-2 & FLU Antigen (Rapid) - Final Weight used for dosin.6 kg Estimated Creatinine Clearance: 14.7 Goal Trough: 15-20 mcg/mL Pharmacy Plan for Drug Dosing: An initial vancomycin loading dose of 1250mg will be given. Since the current CrCl<20 (at 14.7), further dosing will be held until a random vancomycin level is drawn with morning labs 05/15/22. Pharmacy Service will continue to monitor and adjust dosing as required. Follow-Up Labs: Trough Vancomycin - random Labs to be done on [date and time ordered]: 05/15/22 @0600 random
[2022-05-14] MEDS: Acetaminophen 650 MG/20 ML UDC GT (06:13)
[2022-05-14] MEDS: TITRATION PARAMETER CHANGE 1 EACH IV ×3 (07:05→18:24)
--- NOTE | 2022-05-14 07:10 | PN.SURG_ITS ---
Subjective Subjective Patient had low urine output yesterday, was started on IV fluids initially trying to keep dry due to the ARDS. Patient still is having low urine output this morning was able to come down on the levo from 15 to 5.febrile 101 Objective Data Objective Data Vital Signs: Vital Signs Temp Pulse Resp BP Pulse Ox O2 Del Method O2 Flow Rate 101.1 F H 111 H 20 H 101/71 94 Mechanical Ventilator 15 05/14/22 07:00 05/14/22 07:00 05/14/22 07:00 05/14/22 07:00 05/14/22 07:00 05/14/22 07:00 05/12/22 23:01 FiO2 40 05/14/22 07:00 Oxygen Flow Rate (L/min) 15 Oxygen Delivery Method Mechanical Ventilator Weight: 104 lb 15.04 oz Body Mass Index (BMI) 19.3 Intake & Output: Intake and Output for Last 24 Hours 05/12/22 05/13/22 05/14/22 23:59 23:59 23:59 Intake Total 1000 / 1000 4517.85 / 4552.58 169.76 / 169.76 Output Total 2800 / 2860 400 / 400 Balance 1000 / 1000 1717.85 / 1692.58 -230.24 / -230.24 Lab / Micro Data Result Diagrams: 05/14/22 04:05 05/14/22 04:05 Labs: Laboratory Results - last 24 hr 05/12/22 22:29: Diff Path Review Reviewed 05/13/22 06:35: Magnesium 2.2 05/13/22 06:35: WBC 12.6 H, RBC 4.39, Hgb 13.6, Hct 39.4, MCV 89.7, MCH 31.0, MCHC 34.5, RDW Std Deviation 38.5, RDW Coeff of Audrey 11.8, Plt Count 283, MPV 10.0, Immature Gran % (Auto) ACCOUNT ANALYST, Neut % (Auto) ACCOUNT ANALYST, Lymph % (Auto) ACCOUNT ANALYST, [place] % (Auto) ACCOUNT ANALYST, Eos % (Auto) ACCOUNT ANALYST, Baso % (Auto) ACCOUNT ANALYST, Absolute Neuts (auto) 8.3 H, Absolute Lymphs (auto) 0.88, Total Counted 100, Neutrophils % (Manual) 20 L, Ba nd Neutrophils % 46 H, Lymphocytes % (Manual) 7 L, Monocytes % (Manual) 3, Metamyelocytes % 18 H, Myelocytes % 6 H, Nucleated RBC % 0, Diff Path Review Reviewed, Platelet Estimate ADEQUATE, RBC Morphology NORM C+C 05/13/22 06:35: Sodium 126 L, Potassium 4.2, Chloride 89 L, Carbon Dioxide 28.0, Anion Gap 9, BUN 93 H, Creatinine 1.89 H, Estim Creat Clear Calc 25.66, Est GFR (MDRD) Af Amer 35 L, Est GFR (MDRD) Non-Af 29 L, BUN/Creatinine Ratio 49.2 H, Glucose 104, Calcium 8.2 L, TSH 0.61 05/13/22 06:35: Cortisol 70.20 H 05/13/22 06:35: Troponin I High Sens 53 05/13/22 06:35: Total Creatine Kinase 264 H, Triglycerides 64 05/13/22 07:57: POC Glucose 84 05/13/22 08:20: MRSA (PCR) Negative 05/13/22 08:25: Troponin I High Sens 67 H 05/13/22 13:05: Troponin I High Sens 59 H 05/14/22 04:05: WBC 40.9 H*, RBC 4.04 L, Hgb 12.6, Hct 37.5, MCV 92.8, MCH 31.2, MCHC 33.6, RDW Std Deviation 42.8, RDW Coeff of Audrey 12.5, Plt Count 250, MPV 9.9, Immature Gran % (Auto) ACCOUNT ANALYST, Neut % (Auto) ACCOUNT ANALYST, Lymph % (Auto) ACCOUNT ANALYST, [place] % (Auto) ACCOUNT ANALYST, Eos % (Auto) ACCOUNT ANALYST, Baso % (Auto) ACCOUNT ANALYST, Absolute Neuts (auto) 37.2 H, Absolute Lymphs (auto) 1.64, Total Counted 100, Neutrophils % (Manual) 66, Band Neutrophils % 25 H, Lymphocytes % (Manual) 4 L, Monocytes % (Manual) 3, Metamyelocytes % 2 H, Nucleated RBC % 0, Differential Comment COMMENT, Diff Path Review May foll, Platelet Estimate MOD DEC, RBC Morphology N CHROM, [place] Cells 1 + 05/14/22 04:05: Sodium 130 L, Potassium 4.6, Chloride 95 L, Carbon Dioxide 23.0, Anion Gap 12, BUN 108 H*, Creatinine 3.15 H, Estim Creat Clear Calc 14.69, Est GFR (MDRD) Af Amer 19 L, Est GFR (MDRD) Non-Af 16 L, BUN/Creatinine Ratio 34.3 H , Glucose 88, Calcium 8.5 05/14/22 05:25: Lactic Acid 3.6 H* Micro: Microbiology 05/13/22 09:30 Sputum, Induced/Lukens Gram Stain - Final 05/12/22 22:30 Urine, Catheterized Urine Culture - Preliminary Culture exhibits no growth. 05/13/22 00:46 Urine Catheter - Catheter Legionella Antigen - Final 05/13/22 00:46 Urine Catheter - Catheter Streptococcus pneumoniae Antigen (M - Final 05/12/22 22:30 Nasal Secretion SARS-CoV-2 & FLU Antigen (Rapid) - Final ABG Data ABG results: ABG 05/13/22 07:52 Specimen Type ART Sample Site R Brach pH 7.43 Bicarbonate Actual 23.5 Total CO2 25 Base Excess -1 O2 Saturation 94 L O2 % 90 ABG pCO2 35.8 ABG pO2 69 L Respiration Rate 16 O2 Delivery Device Adult Vent Vent Mode AC Tidal Volume 400 POC PEEP 14 Radiography Diagnostic Testing: Radiology Impression Chest X-Ray 05/13/22 06:14 IMPRESSION: 1. Satisfactory ET tube position. NG tube as described. 2. Increased consolidation on the right. Little change in the infiltrates on the left. Electronically Signed: Brittnee Lorenz MD at 7:39 EDT , KUB X-Ray 05/13/22 08:30 IMPRESSION: Enteric tube tip in the proximal stomach. However, the side-port is above the GE junction. This should be advanced 5 to 10 cm. Please note at the time of this dictation, a repeat exam has been performed and the tubes in satisfactory position. Stable dilated loops of small bowel in the visualized upper abdomen. Stable patchy airspace opacities in the visualized lower lung mccoy, right greater than left. Electronically Signed: Juanito Sheldon MD at 9:18 EDT , KUB X-Ray 05/13/22 08:47 IMPRESSION: Satisfactory position of the enteric tube. Electronically Signed: Juanito Sheldon MD at 9:18 EDT , Echocardiogram 05/13/22 09:54 Interpretation Summary Technically limited study The estimated ejection fraction is 65 %. Unable to assess diastolic dysfunction. Ordering Physician: René Gutierrez Referring Physician: Lance Daley Performed By: Char Aalrcon, JEFF, RVT X-Ray 05/14/22 05:18 IMPRESSION: Non-obstructive bowel gas pattern. Electronically Signed: Mil Jones MD at 5:58 EDT , Physical Exam Narrative Patient is intubated and sedated, OG in place, right IJ triple-lumen catheter in place Resp Resp Narrative: Tachypneic Cardio Rate: tachycardic GI soft to palpation GI Narrative: Left inguinal region no hernia or bulge on exam. Incisions dry and intact small amount of sanguinous drainage. Extremity Extremity Narrative: Extremities are warm to touch Assessment & Plan Assessment/Plan (1) S/P exploratory laparotomy: (2) Recurrent inguinal hernia of left side with obstruction: (3) Septic shock: (4) Aspiration pneumonia: (5) Acute respiratory failure with hypoxia: (6) Acute hypokalemia: (7) ROSALIE (acute kidney injury): (8) Acute hyponatremia: PLAN: Plan Postop day 1 status post ex lap small bowel resection, reduction of left inguinal hernia Patient is in critical condition. Appreciate ICU's help with management of the vent and antibiotics for aspiration pneumonia. Discussed patient's sister that she would be on the ventilator for several days due to aspiration pneumonia, which was seen on admission CT abdomen pelvis. Incisions dressed with OpSite's. Small bowel resection and anastomosis. Keep n.p.o. until bowel function. OG in place. Low urine output, and elevated lactic acid, acute kidney injury with elevated creatinine-- give patient a 500 cc bolus increase the fluids to 100 cc an hour we will monitor urine output closely and will likely additional boluses today. Tahmina Wayne M.D. Pager: [phone] [facility] [address] [place] [address], [facility], [address] [place] [id number] Office: [phone]
--- NOTE | 2022-05-14 07:43 | RAD_ITS ---
ACR Level 3 findings have been noted. An addendum which confirms receipt of the report will follow. STUDY: X-RAY CHEST REASON FOR EXAM: Female, 56 years old. ARDS TECHNIQUE: Single AP portable view of the chest. COMPARISON: May 14, 2022 FINDINGS: Endotracheal tube, 2 cm above the garfield feeding tube extends to the stomach in the left upper quadrant. Central catheter extends to the superior vena cava. There is worsening right greater than left mid and lower lung airspace consolidation. There is no demonstrated pleural abnormality. Normal size heart. Normal mediastinum and [place]. Normal visualized pulmonary arteries. Normal visualized aortic arch and descending thoracic aorta. Normal visualized thoracic spine. Normal visualized ribs, clavicles, and shoulders. There is stable air lucency in the upper abdomen with pneumoperitoneum versus bowel distention. RAD/Chest 1 View (Portable) IMPRESSION: Stable tubes and catheters. Worsening infiltrates. Possible pneumoperitoneum similar to prior exam. Correlate with clinical history for postoperative status versus bowel perforation. Electronically Signed: Edwin Barfield MD at 9:02 EDT ,
[2022-05-14] MEDS: Chlorhexidine 15 ML PO ×2 (07:48→21:06)
--- NOTE | 2022-05-14 07:50 | PCM.PN.INT ---
Assessment & Plan Assessment/Plan (1) S/P exploratory laparotomy: PLAN: Mall bowel resection and anastomosis, (2) Recurrent inguinal hernia of left side with obstruction: PLAN: Management per surgery (3) ARDS (adult respiratory distress syndrome): PLAN: P/F increased to 184, improving and weaning both PEEP and Fi02, not ready to extubate. (4) Small bowel obstruction: PLAN: resolved post exploratory lap (5) Aspiration pneumonia: PLAN: Dur to SBO; Bilateral infiltrates, improving (6) Septic shock: PLAN: improving, weaning norepinephrine. COmpleted sepsis fluid resuscitation, lactate remains elevated. Sepsis repeat exams completed. No positive cultures at this time. still low grade febrile to 100f. BC 05/12 NGTD and 2 BC 05/14 pending. (7) Acute respiratory failure with hypoxia: PLAN: on mechanical ventilation. Good progress with weaning from FIO2 90-->40%, and PEEP 14-->8 today. - wean as tolerated, I do not anticipate extubation until off pressors. - adequate vent settings and ETT placement; follow. - vent bundle; HOB 30 or more, turn q2h, suction PRN. (8) On mechanically assisted ventilation: (9) Acute metabolic encephalopathy: PLAN: likely due to critical illness; CT brain negative. (10) Elevated troponin: PLAN: Troponins are decreasing, likely type 2 ischemia due to critical illness and septic shock. Echo 05/13 showed normal EF 65%, no significant valve abnormality; difficult study due to benign on vent, so no assessment of wall motion. (11) S/P left inguinal hernia repair: PLAN: mgmt per yuko (12) Heart murmur: PLAN: not heard on exam today, trivial valve pathology on echo. (13) ROSALIE (acute kidney injury): PLAN: may need dialysis today; renal consultation today called to [facility]. - coags ordered in preparation for dialysis catheter placement PLAN: Plan 1. Inguinal hernia L with obstruction 2. vomiting and aspiration due to #1, with complication of: 3. ARDS 4. Hypoxic respiratory failure, on mechanical ventilation. Good progress with weaning from FIO2 90-->40%, and PEEP 14-->8 today. - wean as tolerated, I do not anticipate extubation until off pressors. - adequate vent settings and ETT placement; follow. - vent bundle; HOB 30 or more, turn q2h, suction PRN. 5. Septic shock; improving pressor needs. Completed sepsis fluid resuscitation, lactate remains elevated. Sepsis repeat exams completed. No positive cultures at this time. still low grade febrile to 100f. BC 05/12 NGTD and 2 BC 05/14 pending. 6. ROSALIE: may need dialysis today; renal consultation today called to [facility]. 7. Underweight; start nutrition per surgery, absent bowel sounds today. Subjective Subjective Intubated and sedated on vent, comfortable. Overnight: WBC increased to 40k, vanco/zosyn started by Dr. Moore, unasyn and azithro discontinued. 2 BCs done, remains on pressors and critically ill on ventilator support for abdominal sepsis and aspiration/ARDS, weaning FiO2 and PEEP. Objective Data Objective Data PMH: Carpal tunnel syndrome Heart murmur Heartburn History of irregular heartbeat History of stress test Leg cramps Post-menopausal Reducible left inguinal hernia Seasonal allergies Smoker Wears glasses KUB 05/14: FINDINGS: An NG tube is seen its tip is below the diaphragm is in good position. BOWEL GAS PATTERN: Non-obstructive. No bowel or stomach distention. FREE AIR: Not assessed on a single supine view. ORGANOMEGALY: Not seen. CALCIFICATIONS: No abnormal calcifications observed. LOWER CHEST: No acute pathology. BONES AND SOFT TISSUES: No acute pathology. RAD/Abdomen Single View (Portable) IMPRESSION: Non-obstructive bowel gas pattern. CXR #1 05/14: FINDINGS: LINES/DEVICES: Tip of the endotracheal tube 5 cm above the garfield. NG tube tip in the stomach. Central venous catheter unchanged. LUNGS: Lungs are hyperinflated. Ill-defined airspace opacities in the lung bases not significantly changed. No pneumothorax. MEDIASTINUM: Unremarkable. CARDIAC SILHOUETTE: Not enlarged. BONES AND SOFT TISSUES: No acute abnormalities. RAD/Chest 1 View (Portable) IMPRESSION: 1. Satisfactory ET tube position. NG tube as described. 2. Stable bilateral lower lobe pneumonia. Echocardiogram 05/13: Interpretation Summary Technically limited study The estimated ejection fraction is 65 %. Unable to assess diastolic dysfunction. Vital Signs: Vital Signs Temp Pulse Resp BP Pulse Ox O2 Del Method O2 Flow Rate 101.1 F H 110 H 20 H 112/75 94 Mechanical Ventilator 15 05/14/22 07:00 05/14/22 07:15 05/14/22 07:00 05/14/22 07:15 05/14/22 07:00 05/14/22 07:00 05/12/22 23:01 FiO2 40 05/14/22 07:00 Oxygen Flow Rate (L/min) 15 Oxygen Delivery Method Mechanical Ventilator Weight: 104 lb 15.04 oz Body Mass Index (BMI) 19.3 Current settings tidal volume 400, rate 16, FiO2 weaned to 40%, PEEP weaned to 8. SPO2 95%, PIP 20, endotracheal tube 7.0 at 20 cm at the upper teeth. Minute ventilation 10. ABG on these settings: 7.37//74. Drips: Fentanyl 75 mcg, propofol held. IVF 150/hr. Levo 5 mcg/min. Propofol on hold, 0.9% NACL boluses PRN. Meds reviewed: duoneb, unasyn, azithro, Zosyn 3.375gm/12h, vanco 1250 mg then pharmacy dosing, chlorhexidine po BID,zofran, pantoprazole 40/24h,KCL PRN, Intake & Output: Intake and Output for Last 24 Hours 05/12/22 05/13/22 05/14/22 23:59 23:59 23:59 Intake Total 1000 / 1000 4517.85 / 4552.58 864.11 / 864.11 Output Total 2800 / 2860 400 / 400 Balance 1000 / 1000 1717.85 / 1692.58 464.11 / 464.11 N.p.o. after bowel surgery, no bowel sounds today. ng Tube in place Lab / Micro Data Attestation: I reviewed the patient's lab results. Lab results narrative: WBC increasing with marked L shift; troponin downtrending, lactate downtrending but remains elevated at 3.6, renal function worse. Result Diagrams: 05/14/22 04:05 05/14/22 04:05 Labs: Laboratory Results - last 24 hr 05/12/22 22:29: Diff Path Review Reviewed 05/13/22 06:35: Diff Path Review Reviewed 05/13/22 06:35: Cortisol 70.20 H 05/13/22 06:35: Troponin I High Sens 53 05/13/22 06:35: Total Creatine Kinase 264 H, Triglycerides 64 05/13/22 07:57: POC Glucose 84 05/13/22 08:20: MRSA (PCR) Negative 05/13/22 08:25: Troponin I High Sens 67 H 05/13/22 13:05: Troponin I High Sens 59 H 05/14/22 04:05: WBC 40.9 H*, RBC 4.04 L, Hgb 12.6, Hct 37.5, MCV 92.8, MCH 31.2, MCHC 33.6, RDW Std Deviation 42.8, RDW Coeff of Audrey 12.5, Plt Count 250, MPV 9.9, Immature Gran % (Auto) PARKING STATION ATTENDANT, Neut % (Auto) PARKING STATION ATTENDANT, Lymph % (Auto) PARKING STATION ATTENDANT, [place] % (Auto) PARKING STATION ATTENDANT, Eos % (Auto) PARKING STATION ATTENDANT, Baso % (Auto) PARKING STATION ATTENDANT, Absolute Neuts (auto) 37.2 H, Absolute Lymphs (auto) 1.64, Total Counted 100, Neutrophils % (Manual) 66, Band Neutrophils % 25 H, Lymphocytes % (Manual) 4 L, Monocytes % (Manual) 3, Metamyelocytes % 2 H, Nucleated RBC % 0, Differential Comment COMMENT, Diff Path Review May foll, Platelet Estimate MOD DEC, RBC Morphology N CHROM, Alisha Cells 1+ 05/14/22 04:05: Sodium 130 L, Potassium 4.6, Chloride 95 L, Carbon Dioxide 23.0, Anion Gap 12, BUN 108 H*, Creatinine 3.15 H, Estim Creat Clear Calc 14.69, Est GFR (MDRD) Af Amer 19 L, Est GFR (MDRD) Non-Af 16 L, BUN/Creatinine Ratio 34.3 H, Glucose 88, Calcium 8.5 05/14/22 05:25: Lactic Acid 3.6 H* Micro: Microbiology 05/13/22 09:30 Sputum, Induced/Lukens Gram Stain - Final 05/12/22 22:30 Urine, Catheterized Urine Culture - Preliminary Culture exhibits no growth. 05/13/22 00:46 Urine Catheter - Catheter Legionella Antigen - Final 05/13/22 00:46 Urine Catheter - Catheter Streptococcus pneumoniae Antigen (M - Final 05/12/22 22:30 Nasal Secretion SARS-CoV-2 & FLU Antigen (Rapid) - Final Discussed with micro lab; BC 05/12 NGTD; 2 BC drawn 05/14. ABG Data ABG results: ABG 05/13/22 07:52 Specimen Type ART Sample Site R Brach pH 7.43 Bicarbonate Actual 23.5 Total CO2 25 Base Excess -1 O2 Saturation 94 L O2 % 90 ABG pCO2 35.8 ABG pO2 69 L Respiration Rate 16 O2 Delivery Device Adult Vent Vent Mode AC Tidal Volume 400 POC PEEP 14 Attestation: I personally reviewed and interpreted this ABG as follows: Interpretation: Normal acid-base status with mild but physiologically adequate hypoxemia, on supplemental oxygen and adequate mechanical ventilation Second ABG drawn and reviewed this AM, adequate vent settings/ Radiography Diagnostic Testing: Radiology Impression Chest X-Ray 05/13/22 06:14 IMPRESSION: 1. Satisfactory ET tube position. NG tube as described. 2. Increased consolidation on the right. Little change in the infiltrates on the left. Electronically Signed: Brittnee Lorenz MD at 7:39 EDT , KUB X-Ray 05/13/22 08:30 IMPRESSION: Enteric tube tip in the proximal stomach. However, the side-port is above the GE junction. This should be advanced 5 to 10 cm. Please note at the time of this dictation, a repeat exam has been performed and the tubes in satisfactory position. Stable dilated loops of small bowel in the visualized upper abdomen. Stable patchy airspace opacities in the visualized lower lung mccoy, right greater than left. Electronically Signed: Juanito Sheldon MD at 9:18 EDT , KUB X-Ray 05/13/22 08:47 IMPRESSION: Satisfactory position of the enteric tube. Electronically Signed: Juanito Sheldon MD at 9:18 EDT , Echocardiogram 05/13/22 09:54 Interpretation Summary Technically limited study The estimated ejection fraction is 65 %. Unable to assess diastolic dysfunction. Ordering Physician: René Gutierrez Referring Physician: Lance Daley Performed By: Char Alarcon, RDCS, RVT Chest X-Ray 05/14/22 05:18 IMPRESSION: 1. Satisfactory ET tube position. NG tube as described. 2. Stable bilateral lower lobe pneumonia. Electronically Signed: Mil Jones MD at 7:12 EDT , KUB X-Ray 05/14/22 05:18 IMPRESSION: Non-obstructive bowel gas pattern. Electronically Signed: Mil Jones MD at 5:58 EDT , EKG Follow-up EKG: Prior EKG tracings: available for review Interpretation: 05/12 Normal sinus rhythm Septal infarct , age undetermined Abnormal ECG (per Dr. Love interpretation) Physical Exam Narrative Well-developed, critically ill woman, comfortably sedated, small amount of grimacing with abdominal exam. HEENT: Rolling eye movements, eyes closed requiring passive eyelid raising to examine, sclera anicteric, pupils with normal light reflex. Normal nares. Right IJ is present (placed in ER 05/13), dressing clean & dry. no JVD. 20 cm at the upper teeth, with good placement radiographically verified. Normal balloon turgor minimal secretions with suctioning. Chest is clear bilaterally with no wheezes rales or rhonchi. Tachycardic S1-S2 with no murmurs rubs or gallops. Abdomen is soft, mildly distended, absent bowel sounds. No masses, incisions with scant old blood on the dressings, otherwise clean and dry. : Isbell in place draining clear yellow urine ext no clubbing cyanosis or edema. Mild erythema of the hands. Neuro: moves all 4 ext, grossly nonfocal, sedated. Sepsis Attestation Date exam was performed: 05/14/22 Time exam was performed: 07:30 Possible Source of Sepsis: Pulmonary and GI tract/intra-abdominal Sepsis Organ Dysfunction Criteria Present: SBP < 90 mmHg or MAP < 65 mmHg, Acute Respiratory Failure (New need for BiPAP/CPAP or MV) and Creatinine > 2.0 mg/dL Fluid Resuscitation Fluid resuscitation indicated?: Yes (done.) Reason for lesser fluid bolus:: Concern for fluid overload (ARDS) and Other (done. ) Sepsis Note Date exam was performed: 05/14/22 Time exam was performed: 08:33 Sepsis Attestation: Sepsis re-evaluation was performed Response to fluids: Fluid responsive hypotension and Vasopressors started Charges/Coding Procedures Hospitalists Procedures: [address]5220 Critial Care 1st Hr
[2022-05-14 07:54] LABS: M R Staph aureus DNA By PCR Negative (Negative); Probe Check PASS; Specimen Processing Control PASS
[2022-05-14] MEDS: CHLORHEXIDINE GLUC 2% CLOTH 1 EACH TOWELETTE TOPICAL (07:54)
[2022-05-14 08:05] LABS: Allen Test Positive; Base Excess -5 mmol/L (-2 to +2); Blood Gas Specimen Type ART; FI02 40; Mode AC; O2 Delivery Device Adult Vent; PEEP 8; PO2 74 mmHG (75-100); RR 16; SITE L Radial; SO2 94 % (95-99); Total Carbon Dioxide 21 mmol/L; Vt 400; pCO2 34.6 mmHg (35-45); pH 7.37 (7.35-7.45)
--- NOTE | 2022-05-14 08:45 | PN.HOSP_ITS ---
Subjective Subjective Intubated and sedated, had fevers overnight and both her white count and her renal function increased Objective Data Objective Data Vital Signs: Vital Signs Temp Pulse Resp BP Pulse Ox O2 Del Method O2 Flow Rate 101.1 F H 110 H 20 H 112/75 94 Mechanical Ventilator 15 05/14/22 07:00 05/14/22 07:15 05/14/22 07:00 05/14/22 07:15 05/14/22 07:00 05/14/22 07:00 05/12/22 23:01 FiO2 40 05/14/22 07:00 Oxygen Flow Rate (L/min) 15 Oxygen Delivery Method Mechanical Ventilator Weight: 104 lb 15.04 oz Body Mass Index (BMI) 19.3 Intake & Output: Intake and Output for Last 24 Hours 05/13/22 05/14/22 05/15/22 03:59 03:59 03:59 Intake Total 2585 / 2585 3055.36 / 3060.21 741.60 / 741.60 Output Total 2860 / 2860 340 / 340 Balance 2585 / 2585 195.36 / 200.21 401.60 / 401.60 Lab / Micro Data Result Diagrams: 05/14/22 04:05 05/14/22 04:05 Labs: Laboratory Results - last 24 hr 05/12/22 22:29: Diff Path Review Reviewed 05/13/22 06:35: Diff Path Review Reviewed 05/13/22 08:20: MRSA (PCR) Negative 05/13/22 08:25: Troponin I High Sens 67 H 05/13/22 13:05: Troponin I High Sens 59 H 05/14/22 04:05: WBC 40.9 H*, RBC 4.04 L, Hgb 12.6, Hct 37.5, MCV 92.8, MCH 31.2, MCHC 33.6, RDW Std Deviation 42.8, RDW Coeff of Audrey 12.5, Plt Count 250, MPV 9.9, Immature Gran % (Auto) COMPOSITION INSTRUCTOR, Neut % (Auto) COMPOSITION INSTRUCTOR, Lymph % (Auto) COMPOSITION INSTRUCTOR, [place] % (Auto) COMPOSITION INSTRUCTOR, Eos % (Auto) COMPOSITION INSTRUCTOR, Baso % (Auto) COMPOSITION INSTRUCTOR, Absolute Neuts (auto) 37.2 H, Absolute Lymphs (auto) 1.64, Total Counted 100, Neutrophils % (Manual) 66, Band Neutrophils % 25 H, Lymphocytes % (Manual) 4 L, Monocytes % (Manual) 3, Metamyelocytes % 2 H, Nucleated RBC % 0, Differential Comment COMMENT, Diff Path Review May foll, Platelet Estimate MOD DEC, RBC Morphology N CHROM, Isabella Cells 1+ 05/14/22 04:05: Sodium 130 L, Potassium 4.6, Chloride 95 L, Carbon Dioxide 23.0, Anion Gap 12, BUN 108 H*, Creatinine 3.15 H, Estim Creat Clear Calc 14.69, Est GFR (MDRD) Af Amer 19 L, Est GFR (MDRD) Non-Af 16 L, BUN/Creatinine Ratio 34.3 H , Glucose 88, Calcium 8.5 05/14/22 05:25: Lactic Acid 3.6 H* 05/14/22 05:30: MRSA (PCR) Negative Micro: Microbiology 05/13/22 09:30 Sputum, Induced/Lukens Gram Stain - Final 05/12/22 22:30 Urine, Catheterized Urine Culture - Preliminary Culture exhibits no growth. 05/13/22 00:46 Urine Catheter - Catheter Legionella Antigen - Final 05/13/22 00:46 Urine Catheter - Catheter Streptococcus pneumoniae Antigen (M - Final 05/12/22 22:30 Nasal Secretion SARS-CoV-2 & FLU Antigen (Rapid) - Final ABG Data ABG results: ABG 05/14/22 07:59 Specimen Type ART Sample Site L Radial pH 7.37 Bicarbonate Actual 20.0 L Total CO2 21 Base Excess -5 L O2 Saturation 94 L O2 % 40 ABG pCO2 34.6 L ABG pO2 74 L Stiven Test Positive Respiration Rate 16 O2 Delivery Device Adult Vent Vent Mode AC Tidal Volume 400 POC PEEP 8 Radiography Diagnostic Testing: Radiology Impression KUB X-Ray 05/13/22 08:30 IMPRESSION: Enteric tube tip in the proximal stomach. However, the side-port is above the GE junction. This should be advanced 5 to 10 cm. Please note at the time of this dictation, a repeat exam has been performed and the tubes in satisfactory position. Stable dilated loops of small bowel in the visualized upper abdomen. Stable patchy airspace opacities in the visualized lower lung mccoy, right greater than left. Electronically Signed: Juanito Sheldon MD at 9:18 EDT , KUB X-Ray 05/13/22 08:47 IMPRESSION: Satisfactory position of the enteric tube. Electronically Signed: Juanito Sheldon MD at 9:18 EDT , Echocardiogram 05/13/22 09:54 Interpretation Summary Technically limited study The estimated ejection fraction is 65 %. Unable to assess diastolic dysfunction. Ordering Physician: René Gutierrez Referring Physician: Lance Daley Performed By: Char Alarcon, WANDACS, RVT Chest X-Ray 05/14/22 05:18 IMPRESSION: 1. Satisfactory ET tube position. NG tube as described. 2. Stable bilateral lower lobe pneumonia. Electronically Signed: Mil Jones MD at 7:12 EDT , KUB X-Ray 05/14/22 05:18 IMPRESSION: Non-obstructive bowel gas pattern. Electronically Signed: Mil Jones MD at 5:58 EDT , Physical Exam Const General Appearance: intubated and patient mechanically ventilated HEENT normocephalic Eyes PERRL and conjunctivae normal Neck supple and no JVD Resp normal respiratory effort, no retractions and no use of accessory muscles Auscultation: Negative for crackles, rales, rhonchi or wheezes Cardio regular rate, regular rhythm, S1 normal heart sound, S2 normal heart sound and no murmurs GI soft to palpation and non-distended; Negative for hepatosplenomegaly Extremity no clubbing, cyanosis or edema Skin no rashes or lesions noted Neuro Sensorium / Orientation: sedated on vent Psych Appearance: intubated Assessment & Plan Assessment/Plan (1) Community acquired pneumonia: (2) Acute hyponatremia: (3) Septic shock: (4) Acute respiratory failure with hypoxia: PLAN: Plan 1. Septic shock secondary to aspiration pneumonia with acute hypoxic respiratory failure from the pneumonia as well as ARDS/ROSALIE/elevated troponin ? Appreciate alcoholism worker assistance ? Renal function is worse today at 3.15, if it rises again tomorrow would consider consulting nephrology ? Continue with IV pressors as well as broad-spectrum antibiotics, her white count did increase cultures are pending ? Chest x-ray does have ARDS appearance but per alcoholism worker we are able to come down on the PEEP today ? Troponin at this time is declining and unremarkable, will will not do any further interventions at this ? Continue with aggressive with this 2. Strangulated left inguinal hernia status post repair 05/03/2022 ? Hernia defect was not fixed however she did have the small bowel reduced and resected ? Dressing is clean dry and intact ? Appreciate surgery's assistance DVT: Heparin Charges/Coding Visit Charges Inpatient E&M: 16159 Subs Hosp L2
[2022-05-14 09:32] LABS: Reflex Lactate? Y
[2022-05-14 10:00] LABS: International Normalized Ratio 1.5; Prothrombin Time (Protime)PT. 17.7 SECONDS (11.7-14.9)
[2022-05-14 10:01] LABS: Partial Thromboplast Time 33.4 Seconds (24.1-36.2)
[2022-05-14 10:23] LABS: Lactic Acid 2.4 mmol/L (0.4-1.9)
--- NOTE | 2022-05-14 10:44 | PCM.CONS.R ---
Assessment & Plan Assessment/Plan (1) ROSALIE (acute kidney injury): (2) Septic shock: (3) S/P exploratory laparotomy: (4) Hypotension: PLAN: Plan This is a 56-year-old female with no known reported past medical history who presented to the emergency room May 13, 2022 with complaints of syncope, lightheadedness, productive green sputum and nausea. Patient was admitted for septic shock from pneumonia, ROSALIE, acute hypoxic respiratory failure and also found to have Strangulated left inguinal hernia status post repair on 05/13/2022. We were consulted for ROSALIE. Baseline creatinine unknown, labs April 2017 serum creatinine 0.73 mg/dL. Gap in lab work until this admission, on May 12 creatinine 2.10 mg/dL, on May 13 creatinine 1.89 and today her creatinine is at 3.15 mg/dL. Patient was started on maintenance IV fluids earlier this morning with rate increased today. She also did receive bolus IV fluids throughout late last evening and earlier this morning. There has been concern for ARDS therefore there was caution with IVFs however respiratory status improving this morning and PEEP decreased. Blood pressures are low but also improved and Levophed amount has been decreased. Quite possibly ROSALIE is multifactorial from poor oral intake prior to hospitalization, likely blood pressures were also low before hospitalization at home (BP in ER 74/41) and ROSALIE is evolving to ischemic ATN. Urine output seems to be picking up as of this morning. At this time there is no acute indication for WORKFORCE PLANNING ANALYST, potassium and acid-base acceptable and there is no hypervolemia, patient on exam appears to be more hypovolemic and recommend to continue with IV fluids as ordered as patient is tolerating. Recommend strict I and O. Recommend avoiding nephrotoxic agents. We will continue to monitor renal function trajectory. If renal function does worsen patient may need WORKFORCE PLANNING ANALYST, if no improvement in blood pressures patient may need CRRT. However again there is no acute indication for WORKFORCE PLANNING ANALYST, patient is not hypervolemic and she is non-oliguric at this time. Patient had noncontrast CT of abdomen and pelvis: No hydronephrosis, no calculi demonstrated. UA negative for RBC, protein 15, specific gravity 1.020. White count is up to 40,000 today, patient is receiving IV antibiotics, Zosyn and vancomycin, recommend close monitoring of Vanco levels given ROSALIE. Blood cultures pending. There has been no recent diuretics, GUANAKO or ARBs. Quite possibly patient did have NSAIDs for pain post surgery as noted on her office note but not known at this time if she was taking NSAIDs. Further orders forthcoming as hospitalization evolves, thank you for allowing us to participate in the care of Ms. Gould. HPI Consult Data Date of Consult: 05/14/22 HPI Narrative HPI Narrative: GONZALES GOULD, is a 56 F with no reported PMH. She underwent left inguinal hernia repair on 04/02/2022. She then to the emergency room on May 13 with complaints of syncope, nausea and lightheadedness. Wor-up in the emergency room: CT of head did not show any acute abnormality, patient was admitted for septic shock secondary to penumonia, acute respiratory failure with hypoxia and pneumonia, ROSALIE and hyponatremia. We were consulted for renal insufficiency. Patient is on ventilator support, information gathered from patient's primary nurse and hospital records. Reviewing past labs, patient has normal baseline serum creatinine as of 2018. On admission (05/12), Serum creatinine 2.10 mg/dL/BUN 99 and today creatinine is 3.15 mg/dL, BUN 108. Patient went to surgery on 05/13 for strangulated left inguinal hernia, small bowel obstruction s/p reduction of left inguinal hernia. [facility] Medical History (Updated 05/14/22 @ 10:57 by HIGINIO Burleson) Carpal tunnel syndrome Heart murmur Heartburn History of irregular heartbeat History of stress test Leg cramps On mechanically assisted ventilation Post-menopausal Reducible left inguinal hernia Seasonal allergies Smoker Wears glasses Home Medications biotin 10,000 mcg chewable tablet (Hair, Skin and Nails (biotin)) 10,000 mcg PO DAILY 03/29/22 [History Last Taken Unknown] calcium 600 mg capsule 600 mg PO DAILY 03/29/22 [History Last Taken Unknown] cholecalciferol (vitamin D3) 25 mcg (1,000 unit) chewable tablet (Vitamin D3) 25 mcg PO DAILY 03/29/22 [History Last Taken Unknown] multivitamin 1 cap PO DAILY 03/29/22 [History Last Taken Unknown] Allergy/AdvReac Type Severity Reaction Status Date / Time No Known Allergies Allergy Unverified 04/30/22 13:32 Family History Mother Myocardial infarction, Onset Age: 40 Anxiety and depression Father CVA (cerebral vascular accident) Sister Thyroid disorder Aunt Breast cancer Surgical History (Updated 05/13/22 @ 13:[address] Tahmina Wayne MD) History of appendectomy Hx of colonoscopy S/P left inguinal hernia repair Social History Smoking Status: Current every day smoker tobacco type: cigarettes Tobacco: How many years used: 20 alcohol intake: never substance use type: does not use what type of physical activity do you participate in: walking frequency: 1-2 times per week ROS ROS Narrative unable to obtain Physical Exam Narrative on vent support, no apparent distress LS CTA anteriorly and posteriorly S1 S2 RRR, no murmurs, rubs or gallops abdomen soft, nondistended no edema to b/l legs or arms indwelling kovacs with clear yellow urine in bag/tubing Lab / Micro Data Result Diagrams: 05/14/22 04:05 05/14/22 04:05 Labs: Laboratory Results - last 24 hr 05/12/22 22:29: Diff Path Review Reviewed 05/13/22 06:35: Diff Path Review Reviewed 05/13/22 08:20: MRSA (PCR) Negative 05/13/22 13:05: Troponin I High Sens 59 H 05/14/22 04:05: WBC 40.9 H*, RBC 4.04 L, Hgb 12.6, Hct 37.5, MCV 92.8, MCH 31.2, MCHC 33.6, RDW Std Deviation 42.8, RDW Coeff of Audrey 12.5, Plt Count 250, MPV 9.9, Immature Gran % (Auto) SELF PAY COLLECTOR, Neut % (Auto) SELF PAY COLLECTOR, Lymph % (Auto) SELF PAY COLLECTOR, Cannon % (Auto) SELF PAY COLLECTOR, Eos % (Auto) SELF PAY COLLECTOR, Baso % (Auto) SELF PAY COLLECTOR, Absolute Neuts (auto) 37.2 H, Absolute Lymphs (auto) 1.64, Total Counted 100, Neutrophils % (Manual) 66, Band Neutrophils % 25 H, Lymphocytes % (Manual) 4 L, Monocytes % (Manual) 3, Metamyelocytes % 2 H, Nucleated RBC % 0, Differential Comment COMMENT, Diff Path Review May foll, Platelet Estimate MOD DEC, RBC Morphology N CHROM, Alisha Cells 1+ 05/14/22 04:05: Sodium 130 L, Potassium 4.6, Chloride 95 L, Carbon Dioxide 23.0, Anion Gap 12, BUN 108 H*, Creatinine 3.15 H, Estim Creat Clear Calc 14.69, Est GFR (MDRD) Af Amer 19 L, Est GFR (MDRD) Non-Af 16 L, BUN/Creatinine Ratio 34.3 H, Glucose 88, Calcium 8.5 05/14/22 05:25: Lactic Acid 3.6 H* 05/14/22 05:30: MRSA (PCR) Negative 05/14/22 09:30: PT 17.7 H, INR 1.5, APTT 33.4 05/14/22 09:40: Lactic Acid 2.4 H* Micro: Microbiology 05/13/22 09:30 Sputum, Induced/Lukens Gram Stain - Final 05/13/22 09:30 Sputum, Induced/Lukens Respiratory Culture - Preliminary Presumptive C albicans 05/12/22 22:30 Urine, Catheterized Urine Culture - Preliminary Culture exhibits no growth. ABG Data ABG results: ABG 05/14/22 07:59 Specimen Type ART Sample Site L Radial pH 7.37 Bicarbonate Actual 20.0 L Total CO2 21 Base Excess -5 L O2 Saturation 94 L O2 % 40 ABG pCO2 34.6 L ABG pO2 74 L Stiven Test Positive Respiration Rate 16 O2 Delivery Device Adult Vent Vent Mode AC Tidal Volume 400 POC PEEP 8 Radiology Impression Echocardiogram 05/13/22 09:54 Interpretation Summary Technically limited study The estimated ejection fraction is 65 %. Unable to assess diastolic dysfunction. Ordering Physician: René Gutierrez Referring Physician: Lance Daley Performed By: Char Alarcon, JEFF, RVT Chest X-Ray 05/14/22 05:18 IMPRESSION: 1. Satisfactory ET tube position. NG tube as described. 2. Stable bilateral lower lobe pneumonia. Electronically Signed: Mil Jones MD at 7:12 EDT , KUB X-Ray 05/14/22 05:18 IMPRESSION: Non-obstructive bowel gas pattern. Electronically Signed: Mil Jones MD at 5:58 EDT , Chest X-Ray 05/14/22 07:43 IMPRESSION: Stable tubes and catheters. Worsening infiltrates. Possible pneumoperitoneum similar to prior exam. Correlate with clinical history for postoperative status versus bowel perforation. Electronically Signed: Edwin Barfield MD at 9:02 EDT ,
[2022-05-14] MEDS: 0.9% Normal Saline 1,000 ML 100 ML IV ×2 (11:29→20:05)
[2022-05-14 12:44] LABS: Pathologist Review Reviewed
--- NOTE | 2022-05-14 13:24 | NURSING ---
monitor alarming heart rate 182, noted to be in SVT, deep ETT suctioning performed, heart rate slowed down and back to sinus rhythm after suctioning twice and patient coughing. will cont to monitor.
--- NOTE | 2022-05-14 14:35 | PCM.PN.BLA ---
Progress Note Patient is down from 5 of levo this morning to 1. Patient is on 8 of PEEP, 40% FiO2, does not really follow commands currently. Patient's urine output is improved on 100 cc an hour of normal saline. updated pt sister, Britany as well.
--- NOTE | 2022-05-14 14:50 | NURSING ---
monitor alarming heart rate in the 160s, monitor shows SVT, deep ETT suctioning performed, patient coughing and heart rate back to sinus rhythm in the 90s. Will cont to monitor.
--- NOTE | 2022-05-14 14:52 | EKG12_ITS ---
Test Reason : AFIB Blood Pressure : / mmHG Vent. Rate : 155 BPM Atrial Rate : 319 BPM P-R Int : 000 ms QRS Dur : 068 ms QT Int : 348 ms P-R-T Axes : -68 083 089 degrees QTc Int : 559 ms Atrial flutter with variable A-V block Nonspecific T wave abnormality Abnormal ECG When compared with ECG of 14-MAY-2022 14:52, MANUAL COMPARISON REQUIRED, DATA IS UNCONFIRMED Confirmed by CLARITZA GARCÍA, NORMA ([id number]), photograph editor MANUEL ESCALANTE ([id number]) on 05/19/2022 8:32:14 AM Referred By: ARDEN Confirmed By:NORMA JERRY MD
--- NOTE | 2022-05-14 15:10 | EKG12_ITS ---
Test Reason : ARRYTHMIA Blood Pressure : / mmHG Vent. Rate : 098 BPM Atrial Rate : 098 BPM P-R Int : 122 ms QRS Dur : 070 ms QT Int : 344 ms P-R-T Axes : 051 070 065 degrees QTc Int : 439 ms Normal sinus rhythm Normal ECG When compared with ECG of 15-MAY-2022 02:20, MANUAL COMPARISON REQUIRED, DATA IS UNCONFIRMED Confirmed by CLARITZA GARCÍA, NORMA ([id number]), photo editor MANUEL ESCALANTE ([id number]) on 05/18/2022 8:51:53 AM Referred By: ARDEN Confirmed By:NORMA JERRY MD
[2022-05-14 15:20] LABS: Anion Gap 11 (5-15); BUN 95 mg/dL (7-18); Calcium,Total 7.8 mg/dL (8.5-10.1); Chloride 101 mmol/L (98-107); Creatinine, Serum 2.64 mg/dL (0.55-1.02); EST Glomerular Filtration Rate 20 mL/min (>60); Est Glom Filt Rate - Afr Amer 24 mL/min (>60); Estimated Creatinine Clearance 17.45 ml/min; Glucose 79 mg/dL (74-106); Potassium 3.8 mmol/L (3.5-5.1); Sodium Level 135 mmol/L (136-145)
[2022-05-14 15:59] LABS: Magnesium 2.1 mg/dL (1.6-2.6)
--- NOTE | 2022-05-14 16:58 | EKG12_ITS ---
Test Reason : SVT Blood Pressure : / mmHG Vent. Rate : 100 BPM Atrial Rate : 100 BPM P-R Int : 106 ms QRS Dur : 072 ms QT Int : 342 ms P-R-T Axes : 065 073 077 degrees QTc Int : 441 ms Sinus rhythm with short OK with Premature atrial complexes Nonspecific T wave abnormality Abnormal ECG When compared with ECG of 13-MAY-2022 00:01, Premature atrial complexes are now Present Criteria for Septal infarct are no longer Present Nonspecific T wave abnormality no longer evident in Inferior leads Confirmed by CLARITZA GARCÍA, NORMA ([id number]), electronic news gathering editor MANUEL ESCALANTE ([id number]) on 05/19/2022 8:32:05 AM Referred By: ARDEN Confirmed By:NORMA JERRY MD
--- NOTE | 2022-05-14 17:06 | EKG12_ITS ---
Test Reason : TACHYCARDIA Blood Pressure : / mmHG Vent. Rate : 096 BPM Atrial Rate : 096 BPM P-R Int : 168 ms QRS Dur : 074 ms QT Int : 326 ms P-R-T Axes : 089 069 084 degrees QTc Int : 411 ms Sinus rhythm with marked sinus arrhythmia Otherwise normal ECG When compared with ECG of 15-MAY-2022 01:48, MANUAL COMPARISON REQUIRED, DATA IS UNCONFIRMED Confirmed by CLARITZA GARCÍA, NORAM ([id number]), script editor MANUEL ESCALANTE ([id number]) on 05/18/2022 8:52:13 AM Referred By: Confirmed By:NORMA JERRY MD
--- NOTE | 2022-05-14 23:53 | NURSING ---
HR back up in the 160s, aflutter. Deep suctioned x2 and pt converted back to sinus rhythm, rate in the 80-90s.
[2022-05-15] VITALS (39 sets, daily range): BP systolic 90–116; BP diastolic 57–78; PULSE 78–174; RESP 16–23; TEMP 36.6–38.2; O2SAT 84–100; BMI 20.1
[2022-05-15 03:42] LABS: Absolute Lymphocyte Count 0.72 X10^3/uL (0.83-4.51); Basophil# 0.01 X10^3/uL; Eosinophil# 0.09 X10^3/uL; Eosinophils% 0.3 % (0-5); Hemoglobin 10.3 g/dL (12.0-15.0); Lymphocyte # 0.72 X10^3/ul (0.83-4.51); Mean Corp Hgb Conc 33.2 g/dL (32-36); Mean Corpuscular Hgb 31.5 pg (27.0-32.0); Mean Corpuscular Volume 94.8 fL (81-99); Mean Platelet Vol. 9.7 fl (6.2-12.0); Monocyte# 0.43 X10^3/uL; Monocyte% 1.2 % (0-10); NRBC Flagged by Analyzer 0 % (0-5); Neutrophil # 32.99 X10^3/uL (2.7-7.7); Neutrophil % 92.1 % (47-70); POSITIVE COUNT YES; POSITIVE DIFFERENTIAL YES; POSITIVE MORPHOLOGY YES; Platelet Count 179 K/mm3 (150-450); RBC Distribution Width CV 13.5 % (11.6-14.6); RBC Distribution Width SD 47.1 fl (35.1-43.9); Red Blood Count 3.27 M/mm3 (4.2-5.4)
[2022-05-15 03:46] LABS: Differential Indicated SCAN CRITERIA MET; White Blood Count 35.8 K/mm3 (4.4-11.0)
[2022-05-15 03:50] LABS: International Normalized Ratio 1.3; Prothrombin Time (Protime)PT. 15.7 SECONDS (11.7-14.9)
[2022-05-15 04:13] LABS: ALB/GLOB Ratio 0.4 RATIO (0.9-2.4); AST(SGOT) 185 U/L (15-37); Alanine Aminotransfer ALT/SGPT 399 U/L (13-56); Albumin, Serum 1.4 g/dL (3.2-5.0); Alkaline Phosphatase 106 U/L (45-117); Anion Gap 9 (5-15); BUN 80 mg/dL (7-18); BUN/Creat Ratio 40.8 RATIO (10-20); Calcium,Total 8.5 mg/dL (8.5-10.1); Chloride 110 mmol/L (98-107); Creatinine, Serum 1.96 mg/dL (0.55-1.02); EST Glomerular Filtration Rate 28 mL/min (>60); Est Glom Filt Rate - Afr Amer 34 mL/min (>60); Estimated Creatinine Clearance 23.51 ml/min; Globulin 3.5 g/dL (2.2-4.2); Glucose 82 mg/dL (74-106); Magnesium 2.1 mg/dL (1.6-2.6); Phosphorus 2.9 mg/dL (2.5-4.9); Potassium 3.3 mmol/L (3.5-5.1); Protein, Total 4.9 g/dL (6.4-8.2); Sodium Level 141 mmol/L (136-145)
[2022-05-15 05:16] LABS: Base Excess -6 mmol/L (-2 to +2); Bicarbonate 19.6 mmol/L (22-26); Blood Gas Specimen Type ART; FI02 35; Mode AC; O2 Delivery Device Adult Vent; PEEP 8; PO2 71 mmHG (75-100); RR 16; SITE L Radial; SO2 93 % (95-99); Total Carbon Dioxide 21 mmol/L; Vt 400; pCO2 36.9 mmHg (35-45); pH 7.33 (7.35-7.45)
[2022-05-15] MEDS: 0.9% Saline Lock 10 ML Syringe IV ×3 (05:46→21:30)
[2022-05-15] MEDS: CHLORHEXIDINE GLUC 2% CLOTH 1 EACH TOWELETTE TOPICAL (05:46)
[2022-05-15] MEDS: 0.9% Normal Saline 1,000 ML 100 ML IV ×2 (05:47→15:24)
[2022-05-15 07:01] LABS: Vancomycin, Random Level 10.8 ug/mL (0.0-15.0)
[2022-05-15] MEDS: Ipratropium/Albuterol Sulfate 3 ML AMPUL.NEB INHALATION (07:52)
--- NOTE | 2022-05-15 08:03 | PCM.RX.CS ---
Consult Pharmacy has been consulted to manage selected antiobiotic: Vancomycin Type of Consult: Follow-up Labs: Sodium 141 mmol/L (136-145) 05/15/22 03:30 Potassium 3.3 mmol/L (3.5-5.1) L 05/15/22 03:30 Chloride 110 mmol/L (98-107) H 05/15/22 03:30 Carbon Dioxide 22.0 mmol/L (21.0-32.0) 05/15/22 03:30 Anion Gap 9 (5-15) 05/15/22 03:30 BUN 80 mg/dL (7-18) H 05/15/22 03:30 Creatinine 1.96 mg/dL (0.55-1.02) H 05/15/22 03:30 Est GFR (MDRD) Af Amer 34 mL/min (>60) L 05/15/22 03:30 Est GFR (MDRD) Non-Af 28 mL/min (>60) L 05/15/22 03:30 BUN/Creatinine Ratio 40.8 RATIO (10-20) H 05/15/22 03:30 Glucose 82 mg/dL (74-106) 05/15/22 03:30 Random Vancomycin 10.8 ug/mL (0.0-15.0) 05/15/22 05:50 Microbiology: Microbiology 05/13/22 09:30 Sputum, Induced/Lukens Gram Stain - Final 05/13/22 09:30 Sputum, Induced/Lukens Respiratory Culture - Final Presumptive C albicans 05/12/22 22:30 Urine, Catheterized Urine Culture - Final Culture exhibits no growth. 05/13/22 00:46 Urine Catheter - Catheter Legionella Antigen - Final 05/13/22 00:46 Urine Catheter - Catheter Streptococcus pneumoniae Antigen (M - Final 05/12/22 22:30 Nasal Secretion SARS-CoV-2 & FLU Antigen (Rapid) - Final Goal Trough: 15-20 mcg/mL Pharmacy Plan for Drug Dosing: VANCOMYCIN LEVEL RECEIVED Current Vancomycin Dose: not on scheduled vancomycin at this time d/t renal fxn Number of Doses Received: loading dose 1250mg IV x1 given 05/14 @0609 Vancomycin Level: 10.8 Hours Since Last Dose: 23.5h Renal Function: 1.96/ Crcl 23 mL/min Renal Function Trend: Significant improvement from values yesterday Lab/Micro: Pending Vancomycin Plan/Comments: Patient had a random level drawn which resulted in a value of 10.8 (Goal 15-20). Patient with improved renal function compared to yesterday. In light of this, will start patient on a scheduled vancomycin regimen. Will start 500mg IV Q24h 05/15/22 @0900. Will continue to monitor renal function carefully and re-adjust dosing plan if renal function worsens again. Pending Level: 05/17/22 @0830, prior to 3rd dose of scheduled regimen Pharmacy Service will continue to monitor and adjust dosing as required.
[2022-05-15] MEDS: Chlorhexidine 15 ML PO ×2 (08:06→21:30)
--- NOTE | 2022-05-15 08:18 | PN.SURG_ITS ---
Subjective Subjective Patient is still intubated. Objective Data Objective Data Vital Signs: Vital Signs Temp Pulse Resp BP Pulse Ox O2 Del Method O2 Flow Rate 98.2 F 93 16 96/57 L 93 Mechanical Ventilator 15 05/15/22 08:00 05/15/22 08:05 05/15/22 08:00 05/15/22 08:00 05/15/22 08:00 05/15/22 08:00 05/12/22 23:01 FiO2 35 05/15/22 08:00 Oxygen Flow Rate (L/min) 15 Oxygen Delivery Method Mechanical Ventilator Weight: 109 lb 9.116 oz Body Mass Index (BMI) 20.1 Intake & Output: Intake and Output for Last 24 Hours 05/13/22 05/14/22 05/15/22 23:59 23:59 23:59 Intake Total 4517.85 / 4552.58 3530.30 / 3547.80 1225.75 / 1225.75 Output Total 2800 / 2860 1625 / 2125 1025 / 1025 Balance 1717.85 / 1692.58 1905.30 / 1422.80 200.75 / 200.75 Lab / Micro Data Result Diagrams: 05/15/22 03:30 05/15/22 03:30 Labs: Laboratory Results - last 24 hr 05/14/22 04:05: Diff Path Review Reviewed 05/14/22 09:30: PT 17.7 H, INR 1.5, APTT 33.4 05/14/22 09:40: Lactic Acid 2.4 H* 05/14/22 15:00: Sodium 135 L, Potassium 3.8, Chloride 101, Carbon Dioxide 23.0, Anion Gap 11, BUN 95 H, Creatinine 2.64 H, Estim Creat Clear Calc 17.45, Est GFR (MDRD) Af Amer 24 L, Est GFR (MDRD) Non-Af 20 L, BUN/Creatinine Ratio 36.0 H, Glucose 79, Calcium 7.8 L 05/14/22 15:00: Phosphorus 3.0, Magnesium 2.1 05/15/22 03:30: Sodium 141, Potassium 3.3 L, Chloride 110 H, Carbon Dioxide 22.0, Anion Gap 9, BUN 80 H, Creatinine 1.96 H, Estim Creat Clear Calc 23.51, Est GFR (MDRD) Af Amer 34 L, Est GFR (MDRD) Non-Af 28 L, BUN/Creatinine Ratio 40.8 H, Glucose 82, Calcium 8.5, Phosphorus 2.9, Magnesium 2.1, Total Bilirubin 0.40, AST 185 H, ALT 399 H, Alkaline Phosphatase 106, Total Protein 4.9 L, Albumin 1.4 L, Globulin 3.5, Albumin/Globulin Ratio 0.4 L 05/15/22 03:30: WBC 35.8 H*, RBC 3.27 L, Hgb 10.3 L, Hct 31.0 L, MCV 94.8, MCH 31.5, MCHC 33.2, RDW Std Deviation 47.1 H, RDW Coeff of Audrey 13.5, Plt Count 179, MPV 9.7, Immature Gran % (Auto) 4.400 H, Neut % (Auto) 92.1 H, Lymph % (Auto) 2.0 L, Gilliam % (Auto) 1.2, Eos % (Auto) 0.3, Baso % (Auto) 0.0, Absolute Neuts (auto) 33.0 H, Absolute Lymphs (auto) 0.72 L, Nucleated RBC % 0, Differential Comment COMMENT, Diff Path Review June foll 05/15/22 03:30: PT 15.7 H, INR 1.3 05/15/22 05:50: Random Vancomycin 10.8 Micro: Microbiology 05/14/22 11:30 Urine Catheter - Isbell Urine Culture - Preliminary Culture exhibits no growth. 05/13/22 09:30 Sputum, Induced/Lukens Gram Stain - Final 05/13/22 09:30 Sputum, Induced/Lukens Respiratory Culture - Final Presumptive C albicans 05/12/22 22:30 Urine, Catheterized Urine Culture - Final Culture exhibits no growth. 05/13/22 00:46 Urine Catheter - Catheter Legionella Antigen - Final 05/13/22 00:46 Urine Catheter - Catheter Streptococcus pneumoniae Antigen (M - Final 05/12/22 22:30 Nasal Secretion SARS-CoV-2 & FLU Antigen (Rapid) - Final ABG Data ABG results: ABG 05/15/22 05:11 Specimen Type ART Sample Site L Radial pH 7.33 L Bicarbonate Actual 19.6 L Total CO2 21 Base Excess -6 L O2 Saturation 93 L O2 % 35 ABG pCO2 36.9 ABG pO2 71 L Stiven Test N/A Respiration Rate 16 O2 Delivery Device Adult Vent Vent Mode AC Tidal Volume 400 POC PEEP 8 Radiography Diagnostic Testing: Radiology Impression Chest X-Ray 05/14/22 07:43 IMPRESSION: Stable tubes and catheters. Worsening infiltrates. Possible pneumoperitoneum similar to prior exam. Correlate with clinical history for postoperative status versus bowel perforation. Electronically Signed: Edwin Barfield MD at 9:02 EDT , ADDENDUM: 05/14/22 1412 IMPRESSION: Stable tubes and catheters. Worsening infiltrates. Possible pneumoperitoneum similar to prior exam. Correlate with clinical history for postoperative status versus bowel perforation. N.B. : GI Snow, confirmed on 05/14/2022 14:06:00 (ET) that the healthcare facility has received the radiology report. Electronically Signed: Edwin Barfield MD at 9:02 EDT , Physical Exam Const Constitutional Narrative: Intubated and sedated Resp normal respiratory effort GI soft to palpation Inspection: abdominal distention Auscultation: hypoactive bowel sounds Assessment & Plan Assessment/Plan (1) Small bowel obstruction: PLAN: Patient had a low-grade fever of 99.1 overnight. Antibiotics are still running her white count is slightly improved. She is still distended and she went into A-fib RVR overnight and is on a Cardizem drip. She is off pressors. She will remain intubated today per ICU. Continue NG to low intermittent suction. There is no swelling in the groin. Continue to follow. Jesus Lynn MD Pager: [facility] [address] [place] [address], [address] [place] [address] Office:
--- NOTE | 2022-05-15 08:19 | RAD_ITS ---
STUDY: X-RAY CHEST REASON FOR EXAM: Female, 56 years old. Shortness of breath. TECHNIQUE: Single frontal view of the chest on 2 images. COMPARISON: May 14, 2022. FINDINGS: Stable support devices with tip of endotracheal tube 4.1 cm above the garfield. Stable marked hyperinflation, dense opacity in the right midlung zone with air bronchograms, cardiomegaly and aortic tortuosity with calcification. No acute or emergent finding. There is no demonstrated abnormality of the visualized soft tissue structures of the upper abdomen. RAD/Chest 1 View (Portable) IMPRESSION: Stable chest with no acute superimposed finding. Electronically Signed: Minh Charlton, at 10:52 EDT ,
[2022-05-15] MEDS: Vancomycin IV 500 MG/100 ML BAG 100 MG IV (08:53)
--- NOTE | 2022-05-15 09:01 | PN.CC_ITS ---
Assessment & Plan Assessment/Plan (1) Aspiration pneumonia: (2) ARDS (adult respiratory distress syndrome): (3) Acute respiratory failure with hypoxia: PLAN: Improving; patient is down to 35% FiO2. Today's chest x-ray shows improving ARDS but persistent right midlung infiltrate which may have been her area of aspiration. Secretions are still copious and thick. Cultures are negative except for Mariana in the sputum. We will recheck. - Continue antibiotics - Continue mechanical ventilation, consider extubation when she is able to cough and keep her airway clear, remain off pressors for 6 to 24 hours, and remain out of rapid atrial fibrillation on Cardizem. She became afebrile overnight, would like to see temperature stability as well. No evidence of pleural effusion at this time. (4) On mechanically assisted ventilation: PLAN: Continue as above (5) ROSALIE (acute kidney injury): PLAN: Improving, she appears to be in the diuretic phase of ATN. - Mild supplementation of potassium 20 mill equivalents today. - No need for dialysis at this time. Fluids are balanced. - Monitor electrolytes, fluids, - Avoid nephrotoxic medications (6) S/P exploratory laparotomy: PLAN: Awaiting return of bowel function. Remains n.p.o. for another day. - Likely to start tube feeds tomorrow per surgery, discussed with Dr. Lynn (7) Acute hypokalemia: PLAN: Supplement as needed, recheck in the afternoon due to arrhythmia (8) Atrial fibrillation with rapid ventricular response: PLAN: New problem which occurred late yesterday afternoon and has been challenging overnight. She required Cardizem drip up to 10 mg/h and restart Levophed. Levophed was weaned off at 11 PM, she remained in sinus rhythm but this morning is in and out of atrial fibrillation on Cardizem. Drip increased to 10 mg/h again. (9) Hypotension: PLAN: Resolved, she initially had septic shock, and yesterday had return of hypotension due to rapid atrial fibrillation, resolved now. PLAN: Plan As above, plus: - Daily SBT with sedation lightening when ready - Maintain comfort, currently on fentanyl alone - Bronchopulmonary hygiene, suction as needed, chlorhexidine, head of bed up - PPI - Pneumatic stockings and DVT prophylaxis anticoagulation - Check lactate Critical care will follow Subjective Subjective Comfortably sedated on fentanyl 150 mcg/h drip. Overnight, patient went to [facility] with rapid atrial rate, required Cardizem drip up to 10 mg/h, required Levophed until about 11 PM, converted to sinus rhythm but is still in and out of atrial fibrillation on Cardizem drip at 7.5 mg/h. Blood pressure stable Fever decreased overnight, no new cultures except sputum growing Mariana albicans, likely colonizer in this patient on antibiotic. Wound is in good condition Objective Data Objective Data Vital Signs: Vital Signs Temp Pulse Resp BP Pulse Ox O2 Del Method O2 Flow Rate 98.2 F 93 16 96/57 L 93 Mechanical Ventilator 15 05/15/22 08:00 05/15/22 08:05 05/15/22 08:00 05/15/22 08:00 05/15/22 08:00 05/15/22 08:00 05/12/22 23:01 FiO2 35 05/15/22 08:00 Oxygen Flow Rate (L/min) 15 Oxygen Delivery Method Mechanical Ventilator settings and ABG reviewed with respiratory therapy today 05/15/2022. Continue current settings, not ready to extubate due resolving ARDS \ Settings per respiratory protocol, hold SBT today due to persistent ARDS. ET tube noted to be in good position on portable chest x-ray 05/15/2022. Weight: 109 lb 9.116 oz Body Mass Index (BMI) 20.1 Intake & Output: Intake and Output for Last 24 Hours 05/13/22 05/14/22 05/15/22 23:59 23:59 23:59 Intake Total 4517.85 / 4552.58 3530.30 / 3547.80 1342.00 / 1342.00 Output Total 2800 / 2860 1625 / 2125 1025 / 1025 Balance 1717.85 / 1692.58 1905.30 / 1422.80 317.00 / 317.00 N.p.o., discussed with surgeon, no passing gas or bowel sounds yet. Plan to start tube feeds tomorrow 05/16 Lab / Micro Data Attestation: I reviewed the patient's lab results. Lab results narrative: White count decreasing, BUN/creatinine improving. Fever decreased overnight. Urine output has picked up and fluids are balanced today. Result Diagrams: 05/15/22 03:30 05/15/22 03:30 Labs: Laboratory Results - last 24 hr 05/14/22 04:05: Diff Path Review Reviewed 05/14/22 09:30: PT 17.7 H, INR 1.5, APTT 33.4 05/14/22 09:40: Lactic Acid 2.4 H* 05/14/22 15:00: Sodium 135 L, Potassium 3.8, Chloride 101, Carbon Dioxide 23.0, Anion Gap 11, BUN 95 H, Creatinine 2.64 H, Estim Creat Clear Calc 17.45, Est GFR (MDRD) Af Amer 24 L, Est GFR (MDRD) Non-Af 20 L, BUN/Creatinine Ratio 36.0 H, Glucose 79, Calcium 7.8 L 05/14/22 15:00: Phosphorus 3.0, Magnesium 2.1 05/15/22 03:30: Sodium 141, Potassium 3.3 L, Chloride 110 H, Carbon Dioxide 22.0, Anion Gap 9, BUN 80 H, Creatinine 1.96 H, Estim Creat Clear Calc 23.51, Est GFR (MDRD) Af Amer 34 L, Est GFR (MDRD) Non-Af 28 L, BUN/Creatinine Ratio 40.8 H, Glucose 82, Calcium 8.5, Phosphorus 2.9, Magnesium 2.1, Total Bilirubin 0.40, AST 185 H, ALT 399 H, Alkaline Phosphatase 106, Total Protein 4.9 L, Albumin 1.4 L, Globulin 3.5, Albumin/Globulin Ratio 0.4 L 05/15/22 03:30: WBC 35.8 H*, RBC 3.27 L, Hgb 10.3 L, Hct 31.0 L, MCV 94.8, MCH 31.5, MCHC 33.2, RDW Std Deviation 47.1 H, RDW Coeff of Audrey 13.5, Plt Count 179, MPV 9.7, Immature Gran % (Auto) 4.400 H, Neut % (Auto) 92.1 H, Lymph % (Auto) 2.0 L, [place] % (Auto) 1.2, Eos % (Auto) 0.3, Baso % (Auto) 0.0, Absolute Neuts (auto) 33.0 H, Absolute Lymphs (auto) 0.72 L, Nucleated RBC % 0, Differential Comment COMMENT, Diff Path Review May foll 05/15/22 03:30: PT 15.7 H, INR 1.3 05/15/22 05:50: Random Vancomycin 10.8 Micro: Microbiology 05/12/22 22:50 Blood Culture (Wb) - Chest Blood Culture - Preliminary No growth in 48 hours. 05/12/22 22:29 Blood Culture (Wb) - Right Wrist Blood Culture - Preliminary No growth in 48 hours. 05/14/22 11:30 Urine Catheter - Isbell Urine Culture - Preliminary Culture exhibits no growth. 05/13/22 09:30 Sputum, Induced/Lukens Gram Stain - Final 05/13/22 09:30 Sputum, Induced/Lukens Respiratory Culture - Final Presumptive C albicans 05/12/22 22:30 Urine, Catheterized Urine Culture - Final Culture exhibits no growth. 05/13/22 00:46 Urine Catheter - Catheter Legionella Antigen - Final 05/13/22 00:46 Urine Catheter - Catheter Streptococcus pneumoniae Antigen (M - Final 05/12/22 22:30 Nasal Secretion SARS-CoV-2 & FLU Antigen (Rapid) - Final ABG Data ABG results: ABG 05/15/22 05:11 Specimen Type ART Sample Site L Radial pH 7.33 L Bicarbonate Actual 19.6 L Total CO2 21 Base Excess -6 L O2 Saturation 93 L O2 % 35 ABG pCO2 36.9 ABG pO2 71 L Stiven Test N/A Respiration Rate 16 O2 Delivery Device Adult Vent Vent Mode AC Tidal Volume 400 POC PEEP 8 Radiography Diagnostic Testing: Radiology Impression Chest x-ray portable personally reviewed on the machine 05/15/2022, tubes and lines are in good position, some improvement in infiltrate with persistent right midlung field infiltrate consistent with resolving ARDS. No effusion. Await final report. Chest X-Ray 05/14/22 07:43 IMPRESSION: Stable tubes and catheters. Worsening infiltrates. Possible pneumoperitoneum similar to prior exam. Correlate with clinical history for postoperative status versus bowel perforation. Electronically Signed: Edwin Barfield MD at 9:02 EDT , ADDENDUM: 05/14/22 1412 IMPRESSION: Stable tubes and catheters. Worsening infiltrates. Possible pneumoperitoneum similar to prior exam. Correlate with clinical history for postoperative status versus bowel perforation. N.B. : GI Snow, confirmed on 05/14/2022 14:06:00 (ET) that the healthcare facility has received the radiology report. Electronically Signed: Edwin Barfield MD at 9:02 EDT , Rhythm Strip Rhythm Strip: In and out of sinus rhythm Physical Exam Narrative Acutely ill-appearing woman, on the ventilator, grimacing with suctioning or movement, otherwise comfortable. HEENT 7.0 endotracheal tube 22 cm at the upper teeth, (radiographically acceptable position). Suctioning produced small to moderate amount of keith thick sputum. No blood. Good cough with suctioning. Remainder unchanged. Central venous line right neck in good position and good condition. Chest is rhonchorous bilaterally, diminished, with no wheezes, no consolidation, occasional crackles. Heart (during normal sinus rhythm today) normal S1-S2 with no murmurs rubs or gallops. Abdomen is soft, tender to palpation, no rebound. No recurrence of inguinal hernia. : Isbell in place draining clear yellow urine. Extremities have no clubbing cyanosis or edema. Skin is warm and dry with no pressure-point breakdown. Neuro: Nonfocal. Sedated. Charges/Coding Procedures Hospitalists Procedures: 32511 Critial Care 1st Hr
[2022-05-15] MEDS: Potassium Chloride 20mEq/100mL 20 MEQ/100 ML IV.SOLN. 100 MEQ IV BOLUS (09:53)
[2022-05-15 10:21] LABS: Lactic Acid 1.2 mmol/L (0.4-1.9)
[2022-05-15] MEDS: Acetaminophen 650 MG/20 ML UDC GT (12:35)
--- NOTE | 2022-05-15 13:31 | PCM.PN.REN ---
Subjective Subjective No new events. Creatinine is trending down. Borderline temperatures. A-fib with RVR, currently on Cardizem. Good urine output. Objective Data Objective Data Vital Signs: Vital Signs Temp Pulse Resp BP Pulse Ox O2 Del Method O2 Flow Rate 100.2 F H 88 16 100/57 L 91 Mechanical Ventilator 15 05/15/22 12:00 05/15/22 13:00 05/15/22 13:00 05/15/22 13:00 05/15/22 13:12 05/15/22 13:12 05/12/22 23:01 FiO2 35 05/15/22 13:12 Oxygen Flow Rate (L/min) 15 Oxygen Delivery Method Mechanical Ventilator Weight: 49.7 kg Body Mass Index (BMI) 20.1 Intake & Output: Intake and Output for Last 24 Hours 05/13/22 05/14/22 05/15/22 23:59 23:59 23:59 Intake Total 4517.85 / 4552.58 3530.30 / 3547.80 1694.17 / 1694.17 Output Total 2800 / 2860 1625 / 2125 1400 / 1400 Balance 1717.85 / 1692.58 1905.30 / 1422.80 294.17 / 294.17 Lab / Micro Data Result Diagrams: 05/15/22 03:30 05/15/22 03:30 Labs: Laboratory Results - last 24 hr 05/14/22 15:00: Sodium 135 L, Potassium 3.8, Chloride 101, Carbon Dioxide 23.0, Anion Gap 11, BUN 95 H, Creatinine 2.64 H, Estim Creat Clear Calc 17.45, Est GFR (MDRD) Af Amer 24 L, Est GFR (MDRD) Non-Af 20 L, BUN/Creatinine Ratio 36.0 H, Glucose 79, Calcium 7.8 L 05/14/22 15:00: Phosphorus 3.0, Magnesium 2.1 05/15/22 03:30: Sodium 141, Potassium 3.3 L, Chloride 110 H, Carbon Dioxide 22.0, Anion Gap 9, BUN 80 H, Creatinine 1.96 H, Estim Creat Clear Calc 23.51, Est GFR (MDRD) Af Amer 34 L, Est GFR (MDRD) Non-Af 28 L, BUN/Creatinine Ratio 40.8 H, Glucose 82, Calcium 8.5, Phosphorus 2.9, Magnesium 2.1, Total Bilirubin 0.40, AST 185 H, ALT 399 H, Alkaline Phosphatase 106, Total Protein 4.9 L, Albumin 1.4 L, Globulin 3.5, Albumin/Globulin Ratio 0.4 L 05/15/22 03:30: WBC 35.8 H*, RBC 3.27 L, Hgb 10.3 L, Hct 31.0 L, MCV 94.8, MCH 31.5, MCHC 33.2, RDW Std Deviation 47.1 H, RDW Coeff of Audrey 13.5, Plt Count 179, MPV 9.7, Immature Gran % (Auto) 4.400 H, Neut % (Auto) 92.1 H, Lymph % (Auto) 2.0 L, [place] % (Auto) 1.2, Eos % (Auto) 0.3, Baso % (Auto) 0.0, Absolute Neuts (auto) 33.0 H, Absolute Lymphs (auto) 0.72 L, Nucleated RBC % 0, Differential Comment COMMENT, Diff Path Review June05/15/22 03:30: PT 15.7 H, INR 1.3 05/15/22 05:50: Random Vancomycin 10.8 05/15/22 09:50: Lactic Acid 1.2 Micro: Microbiology 05/12/22 22:50 Blood Culture (Wb) - Chest Blood Culture - Preliminary No growth in 48 hours. 05/12/22 22:29 Blood Culture (Wb) - Right Wrist Blood Culture - Preliminary No growth in 48 hours. 05/14/22 11:30 Urine Catheter - [place] Urine Culture - Preliminary Culture exhibits no growth. 05/13/22 09:30 Sputum, Induced/Lukens Gram Stain - Final 05/13/22 09:30 Sputum, Induced/Lukens Respiratory Culture - Final Presumptive C albicans 05/12/22 22:30 Urine, Catheterized Urine Culture - Final Culture exhibits no growth. 05/13/22 00:46 Urine Catheter - Catheter Legionella Antigen - Final 05/13/22 00:46 Urine Catheter - Catheter Streptococcus pneumoniae Antigen (M - Final 05/12/22 22:30 Nasal Secretion SARS-CoV-2 & FLU Antigen (Rapid) - Final ABG Data ABG results: ABG 05/15/22 05:11 Specimen Type ART Sample Site L Radial pH 7.33 L Bicarbonate Actual 19.6 L Total CO2 21 Base Excess -6 L O2 Saturation 93 L O2 % 35 ABG pCO2 36.9 ABG pO2 71 L Stiven Test N/A Respiration Rate 16 O2 Delivery Device Adult Vent Vent Mode AC Tidal Volume 400 POC PEEP 8 Radiography Diagnostic Testing: Radiology Impression Chest X-Ray 05/14/22 07:43 IMPRESSION: Stable tubes and catheters. Worsening infiltrates. Possible pneumoperitoneum similar to prior exam. Correlate with clinical history for postoperative status versus bowel perforation. Electronically Signed: Edwin Barfield MD at 9:02 EDT , ADDENDUM: 05/14/22 1412 IMPRESSION: Stable tubes and catheters. Worsening infiltrates. Possible pneumoperitoneum similar to prior exam. Correlate with clinical history for postoperative status versus bowel perforation. N.B. : GI Snow, confirmed on 05/14/2022 14:06:00 (ET) that the healthcare facility has received the radiology report. Electronically Signed: Edwin Barfield MD at 9:02 EDT , Chest X-Ray 05/15/22 08:19 IMPRESSION: Stable chest with no acute superimposed finding. Electronically Signed: Minh Charlton, at 10:52 EDT , Rhythm Strip Rhythm Strip: In and out of sinus rhythm Physical Exam Narrative on vent support, no apparent distress LS CTA anteriorly and posteriorly S1 S2 RRR, no murmurs, rubs or gallops abdomen soft, nondistended no edema to b/l legs or arms indwelling kovacs with clear yellow urine in bag/tubing Assessment & Plan Assessment/Plan (1) ROSALIE (acute kidney injury): (2) Septic shock: (3) S/P exploratory laparotomy: (4) Hypotension: PLAN: Plan This is a 56-year-old female with no known reported past medical history who presented to the emergency room May 13, 2022 with complaints of syncope, lightheadedness, productive green sputum and nausea. Patient was admitted for septic shock from pneumonia, ROSALIE, acute hypoxic respiratory failure and also found to have Strangulated left inguinal hernia status post repair on 05/13/2022. We were consulted for ROSALIE. Baseline creatinine unknown, labs April 2017 serum creatinine 0.73 mg/dL. Gap in lab work until this admission, on May 12 creatinine 2.10 mg/dL, on May 13 creatinine 1.89 and today her creatinine is at 3.15 mg/dL. Patient was started on maintenance IV fluids earlier this morning with rate increased today. She also did receive bolus IV fluids throughout late last evening and earlier this morning. There has been concern for ARDS therefore there was caution with IVFs however respiratory status improving this morning and PEEP decreased. Blood pressures are low but also improved and Levophed amount has been decreased. Quite possibly ROSALIE is multifactorial from poor oral intake prior to hospitalization, likely blood pressures were also low before hospitalization at home (BP in ER 74/41) and ROSALIE is evolving to ischemic ATN. Urine output seems to be picking up as of this morning. At this time there is no acute indication for VACUUM FILTER OPERATOR, potassium and acid-base acceptable and there is no hypervolemia, patient on exam appears to be more hypovolemic and recommend to continue with IV fluids as ordered as patient is tolerating. Recommend strict I and O. Recommend avoiding nephrotoxic agents. We will continue to monitor renal function trajectory. If renal function does worsen patient may need VACUUM FILTER OPERATOR, if no improvement in blood pressures patient may need CRRT. However again there is no acute indication for VACUUM FILTER OPERATOR, patient is not hypervolemic and she is non-oliguric at this time. Patient had noncontrast CT of abdomen and pelvis: No hydronephrosis, no calculi demonstrated. UA negative for RBC, protein 15, specific gravity 1.020. White count is up to 40,000 today, patient is receiving IV antibiotics, Zosyn and vancomycin, recommend close monitoring of Vanco levels given ROSALIE. Blood cultures pending. There has been no recent diuretics, GUANAKO or ARBs. Quite possibly patient did have NSAIDs for pain post surgery as noted on her office note but not known at this time if she was taking NSAIDs. Further orders forthcoming as hospitalization evolves, thank you for allowing us to participate in the care of Ms. Gould. 05/15/2022. No acute events overnight. Temperature spikes, borderline. WBC count remains high. Now with A-fib RVR. Urine output remains good. Low-dose IV fluids. Oxygenation is better than before. Potassium is low, repleted as per ICU protocol.
[2022-05-15] MEDS: Ipratropium 0.5 MG/2.5 ML SOLUTION INHALATION ×2 (13:57→19:10)
--- NOTE | 2022-05-15 15:03 | PN_ITS ---
Subjective Subjective Patient seen and examined. She remains intubated and sedated. Unable to do review of systems. Objective Data Objective Data Vital Signs: Vital Signs Temp Pulse Resp BP Pulse Ox O2 Del Method O2 Flow Rate 100.8 F H 94 16 94/61 93 Mechanical Ventilator 15 05/15/22 14:00 05/15/22 15:00 05/15/22 15:00 05/15/22 15:00 05/15/22 15:00 05/15/22 15:00 05/12/22 23:01 FiO2 35 05/15/22 15:00 Oxygen Flow Rate (L/min) 15 Oxygen Delivery Method Mechanical Ventilator Weight: 109 lb 9.116 oz Body Mass Index (BMI) 20.1 Intake & Output: Intake and Output for Last 24 Hours 05/13/22 05/14/22 05/15/22 23:59 23:59 23:59 Intake Total 4517.85 / 4552.58 3530.30 / 3547.80 1784.17 / 1784.17 Output Total 2800 / 2860 1625 / 2125 1400 / 1400 Balance 1717.85 / 1692.58 1905.30 / 1422.80 384.17 / 384.17 Lab / Micro Data Result Diagrams: 05/15/22 03:30 05/15/22 03:30 Labs: Laboratory Results - last 24 hr 05/14/22 15:00: Sodium 135 L, Potassium 3.8, Chloride 101, Carbon Dioxide 23.0, Anion Gap 11, BUN 95 H, Creatinine 2.64 H, Estim Creat Clear Calc 17.45, Est GFR (MDRD) Af Amer 24 L, Est GFR (MDRD) Non-Af 20 L, BUN/Creatinine Ratio 36.0 H, Glucose 79, Calcium 7.8 L 05/14/22 15:00: Phosphorus 3.0, Magnesium 2.1 05/15/22 03:30: Sodium 141, Potassium 3.3 L, Chloride 110 H, Carbon Dioxide 22.0, Anion Gap 9, BUN 80 H, Creatinine 1.96 H, Estim Creat Clear Calc 23.51, Est GFR (MDRD) Af Amer 34 L, Est GFR (MDRD) Non-Af 28 L, BUN/Creatinine Ratio 40.8 H, Glucose 82, Calcium 8.5, Phosphorus 2.9, Magnesium 2.1, Total Bilirubin 0.40, AST 185 H, ALT 399 H, Alkaline Phosphatase 106, Total Protein 4.9 L, Albumin 1.4 L, Globulin 3.5, Albumin/Globulin Ratio 0.4 L 05/15/22 03:30: WBC 35.8 H*, RBC 3.27 L, Hgb 10.3 L, Hct 31.0 L, MCV 94.8, MCH 31.5, MCHC 33.2, RDW Std Deviation 47.1 H, RDW Coeff of Audrey 13.5, Plt Count 179, MPV 9.7, Immature Gran % (Auto) 4.400 H, Neut % (Auto) 92.1 H, Lymph % (Auto) 2.0 L, [place] % (Auto) 1.2, Eos % (Auto) 0.3, Baso % (Auto) 0.0, Absolute Neuts (auto) 33.0 H, Absolute Lymphs (auto) 0.72 L, Nucleated RBC % 0, Differential Comment COMMENT, Diff Path Review June05/15/22 03:30: PT 15.7 H, INR 1.3 05/15/22 05:50: Random Vancomycin 10.8 05/15/22 09:50: Lactic Acid 1.2 Micro: Microbiology 05/12/22 22:50 Blood Culture (Wb) - Chest Blood Culture - Preliminary No growth in 48 hours. 05/12/22 22:29 Blood Culture (Wb) - Right Wrist Blood Culture - Preliminary No growth in 48 hours. 05/14/22 11:30 Urine Catheter - Isbell Urine Culture - Preliminary Culture exhibits no growth. 05/13/22 09:30 Sputum, Induced/Lukens Gram Stain - Final 05/13/22 09:30 Sputum, Induced/Lukens Respiratory Culture - Final Presumptive C albicans 05/12/22 22:30 Urine, Catheterized Urine Culture - Final Culture exhibits no growth. 05/13/22 00:46 Urine Catheter - Catheter Legionella Antigen - Final 05/13/22 00:46 Urine Catheter - Catheter Streptococcus pneumoniae Antigen (M - Final 05/12/22 22:30 Nasal Secretion SARS-CoV-2 & FLU Antigen (Rapid) - Final ABG Data ABG results: ABG 05/15/22 05:11 Specimen Type ART Sample Site L Radial pH 7.33 L Bicarbonate Actual 19.6 L Total CO2 21 Base Excess -6 L O2 Saturation 93 L O2 % 35 ABG pCO2 36.9 ABG pO2 71 L Stiven Test N/A Respiration Rate 16 O2 Delivery Device Adult Vent Vent Mode AC Tidal Volume 400 POC PEEP 8 Radiography Diagnostic Testing: Radiology Impression Chest X-Ray 05/15/22 08:19 IMPRESSION: Stable chest with no acute superimposed finding. Electronically Signed: Minh Charlton, at 10:52 EDT Reading Location ID and State: [id number] / [place] , Service support , Rhythm Strip Rhythm Strip: In and out of sinus rhythm Physical Exam Const Constitutional Narrative: Intubated, sedated, RASS score is -4 HEENT normocephalic and head/scalp atraumatic Eyes PERRL Neck supple General: trachea midline Resp Resp Narrative: intubated, sedated, RASS score is -4 Cardio regular rate, regular rhythm, S1 normal heart sound, S2 normal heart sound and no murmurs GI normal to inspection, nondistended, normoactive bowel sounds, soft to palpation, non-tender and non-distended Extremity normal capillary refill and no clubbing, cyanosis or edema Skin General Skin Exam: no breakdown Neuro Neuro Narrative: intubated, sedated Assessment & Plan Assessment/Plan (1) Small bowel obstruction: (2) S/P exploratory laparotomy: (3) Acute respiratory failure with hypoxia: (4) ARDS (adult respiratory distress syndrome): (5) Aspiration pneumonia: PLAN: #Acute hypoxic respiratory failure due to aspiration pneumonia and ARDS * remains intubated and sedated. * RASS score is -4. * critica; care on board * still having thick, copious secretions * sputum cultures are negative * #Afib with RVR: on cardizem drip #ROSALIE * r is improving. nephrology on board. NO need for dialysis now. * #Small bowel obstruction and incarcerated hernia * s/p exploratory laparotomy * maintain NPO. * to start tube feeds tomorrow per general surgery * management as per general surgery * NG tube in place * #Hypokalemia: replace and trend #Hypotension: likely due to cardizem drip> now resolved. Was initially in septic shock, but this has now resolved. DVT prophylais: lovenox (6) Septic shock: Charges/Coding Visit Charges Inpatient E&M: 17930 Subs Hosp L3
[2022-05-16] VITALS (36 sets, daily range): BP systolic 102–164; BP diastolic 72–102; PULSE 74–112; RESP 16–34; TEMP 36.6–37.3; O2SAT 91–98; BMI 20.9
[2022-05-16] MEDS: 0.9% Normal Saline 1,000 ML 100 ML IV (01:25)
[2022-05-16 03:52] LABS: Absolute Lymphocyte Count 1.05 X10^3/uL (0.83-4.51); Absolute Neutrophil Count 33.6 X10^3/uL (2.0-7.7); Eosinophils% 0.3 % (0-5); Hematocrit 28.9 % (37-47); Hemoglobin 9.6 g/dL (12.0-15.0); Lymphocyte # 1.05 X10^3/ul (0.83-4.51); Lymphocyte % 2.8 % (19-41); Mean Corp Hgb Conc 33.2 g/dL (32-36); Mean Corpuscular Hgb 31.5 pg (27.0-32.0); Mean Corpuscular Volume 94.8 fL (81-99); Mean Platelet Vol. 9.8 fl (6.2-12.0); Monocyte% 2.1 % (0-10); NRBC Flagged by Analyzer 0 % (0-5); Neutrophil # 33.56 X10^3/uL (2.7-7.7); Neutrophil % 90.2 % (47-70); POSITIVE COUNT YES; POSITIVE DIFFERENTIAL YES; POSITIVE MORPHOLOGY YES; Platelet Count 164 K/mm3 (150-450); RBC Distribution Width CV 14.4 % (11.6-14.6); RBC Distribution Width SD 49.5 fl (35.1-43.9); Red Blood Count 3.05 M/mm3 (4.2-5.4); White Blood Count 37.2 K/mm3 (4.4-11.0)
[2022-05-16 04:28] LABS: International Normalized Ratio 1.2; Prothrombin Time (Protime)PT. 14.4 SECONDS (11.7-14.9)
[2022-05-16 04:37] LABS: ALB/GLOB Ratio 0.4 RATIO (0.9-2.4); AST(SGOT) 119 U/L (15-37); Alanine Aminotransfer ALT/SGPT 292 U/L (13-56); Albumin, Serum 1.3 g/dL (3.2-5.0); Alkaline Phosphatase 226 U/L (45-117); Anion Gap 10 (5-15); BUN 61 mg/dL (7-18); BUN/Creat Ratio 45.2 RATIO (10-20); Calcium,Total 8.3 mg/dL (8.5-10.1); Chloride 118 mmol/L (98-107); Creatinine, Serum 1.35 mg/dL (0.55-1.02); EST Glomerular Filtration Rate 43 mL/min (>60); Est Glom Filt Rate - Afr Amer 52 mL/min (>60); Estimated Creatinine Clearance 34.28 ml/min; Globulin 3.6 g/dL (2.2-4.2); Glucose 106 mg/dL (74-106); Magnesium 1.9 mg/dL (1.6-2.6); Potassium 3.4 mmol/L (3.5-5.1); Protein, Total 4.9 g/dL (6.4-8.2); Sodium Level 148 mmol/L (136-145)
[2022-05-16 04:51] LABS: Differential Indicated SCAN CRITERIA MET
--- NOTE | 2022-05-16 05:20 | RAD_ITS ---
INDICATION: on mechanical ventilation; ARDS with RML ASP PNA EXAMINATION/TECHNIQUE: X-RAY - XR Chest 1 View COMPARISON: May 15 FINDINGS: Endotracheal tube is stable. Right central line with tip at cavoatrial junction. No pneumothorax. Enteric tube courses below lower edge of film. Airspace opacity at the right mid to lower lung may be slightly improved. There is some left-sided perihilar opacity which is probably similar. No large pleural effusion. Tenting of right hemidiaphragm similar to prior. Old left rib fractures. No subdiaphragmatic free air. RAD/Chest 1 View IMPRESSION: Slight improvement in right mid to lower lung opacity. Electronically Signed: Timothy Berry MD at 5:38 EDT ,
[2022-05-16] MEDS: Ipratropium 0.5 MG/2.5 ML SOLUTION INHALATION ×2 (07:10→19:43)
--- NOTE | 2022-05-16 07:24 | PCM.PN.SRG ---
Subjective Subjective No changes overnight. Patient converted to sinus rhythm according to the nurses. Objective Data Objective Data Vital Signs: Vital Signs Temp Pulse Resp BP Pulse Ox O2 Del Method O2 Flow Rate 98.7 F 105 H 34 H 118/76 97 Mechanical Ventilator 15 05/16/22 07:00 05/16/22 07:11 05/16/22 07:11 05/16/22 07:00 05/16/22 07:11 05/16/22 07:00 05/12/22 23:01 FiO2 35 05/16/22 07:00 Oxygen Flow Rate (L/min) 15 Oxygen Delivery Method Mechanical Ventilator Weight: 113 lb 15.664 oz Body Mass Index (BMI) 20.9 Intake & Output: Intake and Output for Last 24 Hours 05/14/22 05/15/22 05/16/22 23:59 23:59 23:59 Intake Total 3530.30 / 3547.80 3184.09 / 3249.09 1270 / 1270 Output Total 1625 / 2125 1650 / 2050 750 / 750 Balance 1905.30 / 1422.80 1534.09 / 1199.09 520 / 520 Lab / Micro Data Result Diagrams: 05/16/22 03:47 05/16/22 03:47 Labs: Laboratory Results - last 24 hr 05/15/22 09:50: Lactic Acid 1.2 05/16/22 03:47: WBC 37.2 H*, RBC 3.05 L, Hgb 9.6 L, Hct 28.9 L, MCV 94.8, MCH 31.5, MCHC 33.2, RDW Std Deviation 49.5 H, RDW Coeff of Audrey 14.4, Plt Count 164, MPV 9.8, Immature Gran % (Auto) 4.600 H, Neut % (Auto) 90.2 H, Lymph % (Auto) 2.8 L, [place] % (Auto) 2.1, Eos % (Auto) 0.3, Baso % (Auto) 0.0, Absolute Neuts (auto) 33.6 H, Absolute Lymphs (auto) 1.05, Nucleated RBC % 0, Diff Path Review June05/16/22 03:47: PT 14.4, INR 1.2 05/16/22 03:47: Sodium 148 H, Potassium 3.4 L, Chloride 118 H, Carbon Dioxide 20.0 L, Anion Gap 10, BUN 61 H, Creatinine 1.35 H, Estim Creat Clear Calc 34.28, Est GFR (MDRD) Af Amer 52 L, Est GFR (MDRD) Non-Af 43 L, BUN/Creatinine Ratio 45.2 H, Glucose 106, Calcium 8.3 L, Magnesium 1.9, Total Bilirubin 0.50, AST 119 H, ALT 292 H, Alkaline Phosphatase 226 H, Total Protein 4.9 L, Albumin 1.3 L, Globulin 3.6, Albumin/Globulin Ratio 0.4 L Micro: Microbiology 05/12/22 22:50 Blood Culture (Wb) - Chest Blood Culture - Preliminary No growth in 48 hours. 05/12/22 22:29 Blood Culture (Wb) - Right Wrist Blood Culture - Preliminary No growth in 48 hours. 05/14/22 11:30 Urine Catheter - Isbell Urine Culture - Preliminary Culture exhibits no growth. 05/13/22 09:30 Sputum, Induced/Lukens Gram Stain - Final 05/13/22 09:30 Sputum, Induced/Lukens Respiratory Culture - Final Presumptive C albicans 05/12/22 22:30 Urine, Catheterized Urine Culture - Final Culture exhibits no growth. 05/13/22 00:46 Urine Catheter - Catheter Legionella Antigen - Final 05/13/22 00:46 Urine Catheter - Catheter Streptococcus pneumoniae Antigen (M - Final 05/12/22 22:30 Nasal Secretion SARS-CoV-2 & FLU Antigen (Rapid) - Final Radiography Diagnostic Testing: Radiology Impression Chest X-Ray 05/15/22 08:19 IMPRESSION: Stable chest with no acute superimposed finding. Electronically Signed: Minh Charlton at 10:52 EDT , Chest X-Ray 05/16/22 05:20 IMPRESSION: Slight improvement in right mid to lower lung opacity. Electronically Signed: Timothy Berry MD at 5:38 EDT , Rhythm Strip Rhythm Strip: In and out of sinus rhythm Physical Exam Const Constitutional Narrative: Intubated and sedated GI soft to palpation Inspection: Negative for abdominal distention Assessment & Plan Assessment/Plan (1) Small bowel obstruction: PLAN: The patient appears to be rate controlled and may be extubated today but she is still undergoing her breathing trial. She has not had any bowel function but her abdomen is less distended than it was yesterday. There is minimal NG output. Bowel sounds are hypoactive. After extubation would plan to continue n.p.o. until patient starts having bowel function and then start a clear liquid diet. Jesus Lynn MD Pager: [facility] [address] [place] [address], [address] [place] [address] Office:
[2022-05-16 07:35] LABS: Blood Gas Specimen Type VEN; O2 Delivery Device Adult Vent; PEEP 8; PS 5; SITE L Radial; VBG BASE EXCESS -5 mmol/L (-1.0-3.5); VBG Bicarbonate 21 mmol/L (22-26); VBG PO2 58 mmHg (25-40); VBG SO2 89 % (50-70); VBG TCO2 22 mmol/L (23-33); VBG pH 7.36 (7.32-7.42)
[2022-05-16] MEDS: Vancomycin IV 500 MG/100 ML BAG 100 MG IV (08:52)
--- NOTE | 2022-05-16 09:08 | PN.CC_ITS ---
Assessment & Plan Assessment/Plan (1) Altered mental status: PLAN: Dense left hemiparesis became apparent today after extubation. Stroke alert called. CT head showed edema and concern for acute infarct: :Large regions of abnormal edema in the parietal occipital lobes with smaller regions of abnormal edema in the cerebellum, concerning for large acute infarctions versus acute hypertensive encephalopathy.? Recommend follow-up or MRI. No acute intracranial hemorrhage identified. - heparin - possible tenecteplase, deferring to neuro. - decadron started. patient is <72h out from laparotomy for bowel obstruction, with a period of zaire-op hypotension and hypoxemia due to her critically ill presentation with incarcerated hernia, complicated by multiorgan failure including type 2 nSTEMI, ARDS, hypoxic respiratory failure, renal failure, hepatic failure, and probable hypoxic encephalopathy. Edema suggests the injury may have pre-dated today. (2) Atrial fibrillation with rapid ventricular response: PLAN: BP and HR controlled on cardizem drip at 10, Afib mostly controlled. Enoxaparin started today, converted to heparin due to concern for acute CVA pending further workup - echo Tuesday. (3) Small bowel obstruction: PLAN: recovering, managed by surgery - NPO today (4) S/P exploratory laparotomy: PLAN: Recovering, managed by surgery - enoxaparin started today for DVT PPX, changed to heparin today. (5) Aspiration pneumonia: PLAN: RLL infiltrate improving. ARDS has resolved. (6) Acute respiratory failure with hypoxia: PLAN: extubated today uneventfully to 3 LPM nasal O2. GOod cough. Secretions creamy and dereasing in quantity. (7) ROSALIE (acute kidney injury): PLAN: Improving; good urine output. - change fluids to D5 1/2 NS at 75/hr - lasix today for new bilateral leg edema and brain edema. (8) On mechanically assisted ventilation: PLAN: extubated, resolved. Subjective Subjective S: not able to reliably nod yes/no, holds up R hand and squeeze on comand, not wiggle toes, good cough. Patient extubated uneventfully today. Not Nursing noted inability to squeeze her left hand. I re-examined the patient after extubation, and noted R gaze preference, not able to hold up fingers when prompted to hold up as many fingers as me, and dense L hemiparesis; plus weak on right (not able to hold up arm for more than 5 seconds.). Consulted & discussed with Dr. Koehler of neurology. Stroke alert called. Edema presence raises question of whether neurologic changes and CT abnormalities are due to an acute stroke or not, may be related to periods of hypotension/hypoxia previously. Heparin started, thrombolytic therapy is relatively contraindicated due to recent surgery 05/13. Rhythm sinus overnight on 10 mg/hr cardizem, with frequent APCs. Objective Data Objective Data Vital Signs: Vital Signs Temp Pulse Resp BP Pulse Ox O2 Del Method O2 Flow Rate 99 F 96 20 H 164/90 H 94 Mechanical Ventilator 15 05/16/22 08:00 05/16/22 08:00 05/16/22 08:00 05/16/22 08:00 05/16/22 08:00 05/16/22 08:00 05/12/22 23:01 FiO2 35 05/16/22 08:00 Oxygen Flow Rate (L/min) 15 Oxygen Delivery Method Mechanical Ventilator Weight: 113 lb 15.664 oz Body Mass Index (BMI) 20.9 Extubated 05/16/22 to 3 LPM NC O2 Intake & Output: Intake and Output for Last 24 Hours 05/14/22 05/15/22 05/16/22 23:59 23:59 23:59 Intake Total 3530.30 / 3547.80 3184.09 / 3249.09 1291.80 / 1291.80 Output Total 1625 / 2125 1650 / 2050 750 / 750 Balance 1905.30 / 1422.80 1534.09 / 1199.09 541.80 / 541.80 NPO per surgery. Lab / Micro Data Attestation: I reviewed the patient's lab results. Result Diagrams: 05/16/22 03:47 05/16/22 03:47 Labs: Laboratory Results - last 24 hr 05/15/22 09:50: Lactic Acid 1.2 05/16/22 03:47: WBC 37.2 H*, RBC 3.05 L, Hgb 9.6 L, Hct 28.9 L, MCV 94.8, MCH 31.5, MCHC 33.2, RDW Std Deviation 49.5 H, RDW Coeff of Audrey 14.4, Plt Count 164, MPV 9.8, Immature Gran % (Auto) 4.600 H, Neut % (Auto) 90.2 H, Lymph % (Auto) 2.8 L, [place] % (Auto) 2.1, Eos % (Auto) 0.3, Baso % (Auto) 0.0, Absolute Neuts (auto) 33.6 H, Absolute Lymphs (auto) 1.05, Nucleated RBC % 0, Diff Path Review June05/16/22 03:47: PT 14.4, INR 1.2 05/16/22 03:47: Sodium 148 H, Potassium 3.4 L, Chloride 118 H, Carbon Dioxide 20.0 L, Anion Gap 10, BUN 61 H, Creatinine 1.35 H, Estim Creat Clear Calc 34.28, Est GFR (MDRD) Af Amer 52 L, Est GFR (MDRD) Non-Af 43 L, BUN/Creatinine Ratio 45.2 H, Glucose 106, Calcium 8.3 L, Magnesium 1.9, Total Bilirubin 0.50, AST 119 H, ALT 292 H, Alkaline Phosphatase 226 H, Total Protein 4.9 L, Albumin 1.3 L, Globulin 3.6, Albumin/Globulin Ratio 0.4 L Micro: Microbiology 05/14/22 11:30 Urine Catheter - Isbell Urine Culture - Final Culture exhibits no growth. 05/12/22 22:50 Blood Culture (Wb) - Chest Blood Culture - Preliminary No growth in 48 hours. 05/12/22 22:29 Blood Culture (Wb) - Right Wrist Blood Culture - Preliminary No growth in 48 hours. 05/13/22 09:30 Sputum, Induced/Lukens Gram Stain - Final 05/13/22 09:30 Sputum, Induced/Lukens Respiratory Culture - Final Presumptive C albicans 05/12/22 22:30 Urine, Catheterized Urine Culture - Final Culture exhibits no growth. 05/13/22 00:46 Urine Catheter - Catheter Legionella Antigen - Final 05/13/22 00:46 Urine Catheter - Catheter Streptococcus pneumoniae Antigen (M - Final 05/12/22 22:30 Nasal Secretion SARS-CoV-2 & FLU Antigen (Rapid) - Final ABG Data ABG results: ABG 05/16/22 07:29 Specimen Type MEDHAT Sample Site L Radial VBG pH 7.36 VBG pO2 58 H VBG HCO3 21 L VBG Total CO2 22 L VBG O2 Sat (Calc) 89 H VBG Base Excess -5 L POC Mix VBG pCO2 Pt Tmp 37.0 L O2 Delivery Device Adult Vent POC PEEP 8 POC Pressure Suppt 5 Interpretation: VBG noted. No ABG today. Radiography Diagnostic Testing: Name:? GONZALSE HOBSON :?? 1965 F 56 ? From:? Jasmine Burgess MD PCP: Dr. Lance Daley MD Study: Brain/Head without Contrast Date of Exam: 05/16/22 Exam# [id number] Ordering Dr:? Bolivar Suarez MD ADDENDUM by Dr. Jasmine Burgess MD on 05/16/22 at 1006 HISTORY: Extubated this a.m., unable to move left side, rule out stroke. TECHNIQUE:? Multiple axial images were obtained of the head without intravenous contrast. A radiation dose optimization technique was used for this scan. 228 images. COMPARISON: 05/12/2022. FINDINGS: BRAIN PARENCHYMA: Large regions of edema in the bilateral posterior frontoparietal and occipital lobes.? Small regions of decreased attenuation in the cerebellum bilaterally.? No acute intra-axial hemorrhage. CSF SPACES: Sulcal effacement and mild mass effect on the lateral ventricles without significant midline shift, effacement of the basal cisterns, or abnormal enlargement of the cerebral ventricles.? No acute extra-axial hemorrhage. OTHER: Intact calvarium. No significant air fluid levels in the paranasal sinuses or mastoid air cells. Unremarkable orbits. cc:? Dr. Lance Daley MD; Dr. Bolivar Suarez MD ~* Signed ADDENDUM by Dr. Jasmine Burgess MD on 05/16/[address]/Brain/Head without Contrast IMPRESSION: ? Large regions of abnormal edema in the parietal occipital lobes with smaller regions of abnormal edema in the cerebellum, concerning for large acute infarctions versus acute hypertensive encephalopathy.? Recommend follow-up or MRI. No acute intracranial hemorrhage identified. ? N.B. : The above information has been verbally conveyed by Jasmine Burgess MD to Oj Franco RN, on 05/16/2022 10:11:57 (ET). ? Electronically Signed: Jasmine Burgess MD at 10:06 EDT , 05/16/22 1018 Date cc:? Dr. Lance Daley MD; Dr. Bolivar Suarez MD ~* Signed ACR Level 3 findings have been noted.? An addendum which confirms receipt of the report will follow. HISTORY: Extubated this a.m., unable to move left side, rule out stroke. TECHNIQUE:? Multiple axial images were obtained of the head without intravenous contrast. A radiation dose optimization technique was used for this scan. 228 images. COMPARISON: 05/12/2022. FINDINGS: BRAIN PARENCHYMA: Large regions of edema in the bilateral posterior frontoparietal and occipital lobes.? Small regions of decreased attenuation in the cerebellum bilaterally.? No acute intra-axial hemorrhage. CSF SPACES: Sulcal effacement and mild mass effect on the lateral ventricles without significant midline shift, effacement of the basal cisterns, or abnormal enlargement of the cerebral ventricles.? No acute extra-axial hemorrhage. OTHER: Intact calvarium. No significant air fluid levels in the paranasal sinuses or mastoid air cells. Unremarkable orbits. CT/Brain/Head without Contrast IMPRESSION: ? Large regions of abnormal edema in the parietal occipital lobes with smaller regions of abnormal edema in the cerebellum, concerning for large acute infarctions versus acute hypertensive encephalopathy.? Recommend follow-up or MRI. No acute intracranial hemorrhage identified. ? Electronically Signed: Jasmine Burgess MD at 10:06 EDT , Results noted. Rain Suarez MD Chest X-Ray 05/15/22 08:19 IMPRESSION: Stable chest with no acute superimposed finding. Electronically Signed: Minh Charlton, at 10:52 EDT , Chest X-Ray 05/16/22 05:20 IMPRESSION: Slight improvement in right mid to lower lung opacity. Electronically Signed: Timothy Berry MD at 5:38 EDT , Rhythm Strip Rhythm Strip: In and out of sinus rhythm Physical Exam Narrative WD slender woman intubated on SBT on vent. ENT: Good cough, minimal creamy secretions with suctioning. Good cough with suctioning. No edema of face. RIJ in good condition and position, no erythema. EOM, not tracking. ANicteric. MMM, ETT at 22 cm at lip PIP 13 on SBT with RSBI 61 on 35%, Ve 6 Neck: Resistance turning to L, unchanged from yesterday. Chest diminished but clear bilaterally, no wheeze, rales or ronchi. Heart reg s1s2, no murmurs, NSR with occasional APCs on monitor, on cardizem 10 mg/hr. Abd: soft, mild tenderness at incision site, dressings clean & dry. Ext no CC, mild edema of feet. Exam after extubation: Change noted; RN noted patient was unable to lift left arm or squeeze hand. I confirmed this. Alert, following commands on R. Unable to speak immediately post-extubation. EOM with R gaze preference, not able to track, could not hold correct # fingers up with R hand, L hand flaccid R arm 3/5 with early drop to bed, R hand with 4/5 handgrasp. L arm not able to move, L hand unable to squeeze, unable to hold left arm up, s Legs: no leg raising bilaterally, no toe wiggle either side, a change from yesterday.
--- NOTE | 2022-05-16 09:23 | CT_ITS ---
ACR Level 3 findings have been noted. An addendum which confirms receipt of the report will follow. HISTORY: Extubated this a.m., unable to move left side, rule out stroke. TECHNIQUE: Multiple axial images were obtained of the head without intravenous contrast. A radiation dose optimization technique was used for this scan. 228 images. COMPARISON: 05/12/2022. FINDINGS: BRAIN PARENCHYMA: Large regions of edema in the bilateral posterior frontoparietal and occipital lobes. Small regions of decreased attenuation in the cerebellum bilaterally. No acute intra-axial hemorrhage. CSF SPACES: Sulcal effacement and mild mass effect on the lateral ventricles without significant midline shift, effacement of the basal cisterns, or abnormal enlargement of the cerebral ventricles. No acute extra-axial hemorrhage. OTHER: Intact calvarium. No significant air fluid levels in the paranasal sinuses or mastoid air cells. Unremarkable orbits. CT/Brain/Head without Contrast IMPRESSION: Large regions of abnormal edema in the parietal occipital lobes with smaller regions of abnormal edema in the cerebellum, concerning for large acute infarctions versus acute hypertensive encephalopathy. Recommend follow-up or MRI. No acute intracranial hemorrhage identified. Electronically Signed: Jasmine Burgess MD at 10:06 EDT ,
--- NOTE | 2022-05-16 10:53 | TELEMED_ITS ---
[facility] has confirmed receipt of a request for visit. This document confirms receipt of the order initiating the consult. To find the results of the consultation, please view the patient's reports for the scanned Telemed Consult.
--- NOTE | 2022-05-16 11:41 | CT_ITS ---
We are attempting to reach an attending provider to discuss findings. An addendum with communication details will be sent when the communication is complete. HISTORY: stroke. TECHNIQUE: [place]/head and carotid CT angiogram protocol was performed after the intravenous administration of 100 mL Isovue 370. NASCET criteria using the distal ICAs for comparison were used for evaluation of stenoses. 3D reconstructions were reviewed. A radiation dose optimization technique was used for this scan. 1889 images. COMPARISON: Noncontrast CT same day FINDINGS: AORTIC ARCH AND BRANCHES: No significant stenosis. Mild atherosclerosis at the origin of the left subclavian artery RIGHT CCA: No occlusion, significant stenosis or dissection. Calcified plaque at the bifurcation with less than 50% stenosis. RIGHT ICA: No occlusion, significant stenosis or dissection. Mildly tortuous distally. LEFT CCA: No occlusion, significant stenosis or dissection. LEFT ICA: No occlusion, significant stenosis or dissection. Mildly tortuous distally. RIGHT VERTEBRAL ARTERY: No occlusion, significant stenosis or dissection. LEFT VERTEBRAL ARTERY: No occlusion, significant stenosis or dissection. SOFT TISSUES: Incompletely imaged dependent opacities in the lungs. Central venous catheter identified in the superior vena cava. ICAs: No significant stenosis at the intracranial/visualized segments. Mild calcified plaque at the carotid siphons. ACAs: No significant stenosis at the visualized segments. MCAs: No significant stenosis at the visualized segments. needle polisher: No significant stenosis at the visualized segments. BASILAR ARTERY: No significant stenosis. VERTEBRAL ARTERIES: No significant stenosis at the intradural/visualized segments. No evidence of intracranial aneurysm or vascular malformation. OTHER: Large regions of posterior cerebral edema or infarction again noted. CT/CTA Head AND Neck W/ Contrast IMPRESSION: No evidence for significant stenosis or occlusion in the carotid or vertebral arteries of the neck. No evidence for focal vascular abnormality in the [place] region. Electronically Signed: Jasmine Burgess MD at 12:25 EDT ,
[2022-05-16 12:00] LABS: Bedside Glucose 116 mg/dL (74-106)
[2022-05-16] MEDS: Furosemide 40 MG/4 ML Vial IV (12:06)
--- NOTE | 2022-05-16 12:13 | MRI_ITS ---
ACR Level 3 findings have been noted. An addendum which confirms receipt of the report will follow. HISTORY: stroke. TECHNIQUE: Multiplanar and multisequence MR images of the brain were obtained without contrast. 299 images. COMPARISON: CT earlier same day. FINDINGS: Motion artifact lowers the sensitivity of examination. BRAIN PARENCHYMA: Large regions of restricted diffusion with corresponding edema and sulcal effacement in the bilateral posterior frontoparietal lobes and occipital lobes. Small foci of restricted diffusion in the bilateral basal ganglia. Mild-moderate zones of restricted diffusion in the cerebellum bilaterally. No acute intracranial hemorrhage identified. CSF SPACES: Mild mass effect on the posterior aspect of the lateral ventricles. No significant midline shift or other mass effect. VASCULAR SYSTEM: Major intracranial flow voids are maintained. PARANASAL SINUSES AND MASTOID AIR CELLS: No significant air fluid levels. ORBITS: Symmetric contents. MRI/Brain without Contrast IMPRESSION: Large regions of restricted diffusion in the bilateral posterior cerebral hemispheres concerning for large acute infarcts. Small bilateral cerebellar infarcts. Small acute lacunar infarcts in the bilateral basal ganglia. Acute hypertensive encephalopathy, hypoglycemia, or status epilepticus could have a similar appearance but considered less likely. Electronically Signed: Jasmine Burgess MD at 15:02 EDT ,
[2022-05-16] MEDS: dexAMETHasone 4 MG/ML Vial IV ×3 (12:30→23:57)
--- NOTE | 2022-05-16 12:50 | ECHOL_ITS ---
Reason For Study: Arrhythmia Procedure This was a limited 2D transthoracic echocardiogram. Full study completed on 05/13/2022. Bubble study done due to large infarcts on MRI. The study was technically difficult. Exam performed portable in ICU/CCU. Left Ventricle Normal LV size. Left ventricular systolic function is normal. The estimated ejection fraction is 65 %. No regional wall motion abnormalities noted. Right Ventricle Normal RV size. Normal systolic function. Atria Normal left atrium. Normal right atrium. Bubble contrast study negative for right to left interatrial shunt. Medication Performed a rapid injection of agitated mix of 9 cc saline and 1cc air to assess for atrial septal defect. ECHO/Echo, Limited Study Interpretation Summary Normal LV size. Left ventricular systolic function is normal. The estimated ejection fraction is 65 %. Bubble contrast study negative for right to left interatrial shunt. Ordering Physician: Bolivar Suarez Referring Physician: Lance Daley Performed By: Alexandru Robles RCS
--- NOTE | 2022-05-16 12:51 | EKG12_ITS ---
Test Reason : TACHYCARDIA Blood Pressure : / mmHG Vent. Rate : 173 BPM Atrial Rate : 170 BPM P-R Int : 000 ms QRS Dur : 078 ms QT Int : 274 ms P-R-T Axes : 000 075 082 degrees QTc Int : 464 ms Supraventricular tachycardia T wave abnormality, consider inferior ischemia Abnormal ECG When compared with ECG of 15-MAY-2022 01:46, MANUAL COMPARISON REQUIRED, DATA IS UNCONFIRMED Confirmed by CLARITZA GARCÍA, NORMA ([id number]), supervising film or videotape editor MANUEL ESCALANTE ([id number]) on 05/18/2022 8:52:25 AM Referred By: Confirmed By:NORMA JERRY MD
--- NOTE | 2022-05-16 14:34 | PN_ITS ---
Subjective Subjective Patient seen and examined. She was still intubated this morning but was subsequently extubated. She was noted to have hemiparesis so a CT of the brain was done which showed large regions of abnormal edema in the parietal occipital lobes with smaller regions of abnormal edema in the cerebellum, concerning for large acute infarctions vs acute hypertensive encephalopathy. Stroke alert was called. She remains very lethargic. Unable to do review of systems due to lethargy Objective Data Objective Data Vital Signs: Vital Signs Temp Pulse Resp BP Pulse Ox O2 Del Method O2 Flow Rate 98.1 F 95 27 H 150/91 H 95 Room Air 1 05/16/22 12:00 05/16/22 12:00 05/16/22 12:00 05/16/22 12:00 05/16/22 12:00 05/16/22 12:00 05/16/22 11:30 FiO2 35 05/16/22 08:00 Oxygen Flow Rate (L/min) 1 Oxygen Delivery Method Room Air Weight: 113 lb 15.664 oz Body Mass Index (BMI) 20.9 Intake & Output: Intake and Output for Last 24 Hours 05/14/22 05/15/22 05/16/22 23:59 23:59 23:59 Intake Total 3530.30 / 3547.80 3184.09 / 3249.09 2528.13 / 2528.13 Output Total 1625 / 2125 1650 / 2050 2800 / 2800 Balance 1905.30 / 1422.80 1534.09 / 1199.09 -271.87 / -271.87 Lab / Micro Data Result Diagrams: 05/16/22 03:47 05/16/22 03:47 Labs: Laboratory Results - last 24 hr 05/16/22 03:47: WBC 37.2 H*, RBC 3.05 L, Hgb 9.6 L, Hct 28.9 L, MCV 94.8, MCH 31.5, MCHC 33.2, RDW Std Deviation 49.5 H, RDW Coeff of Audrey 14.4, Plt Count 164, MPV 9.8, Immature Gran % (Auto) 4.600 H, Neut % (Auto) 90.2 H, Lymph % (Auto) 2.8 L, [place] % (Auto) 2.1, Eos % (Auto) 0.3, Baso % (Auto) 0.0, Absolute Neuts (auto) 33.6 H, Absolute Lymphs (auto) 1.05, Nucleated RBC % 0, Diff Path Review June05/16/22 03:47: PT 14.4, INR 1.2 05/16/22 03:47: Sodium 148 H, Potassium 3.4 L, Chloride 118 H, Carbon Dioxide 20.0 L, Anion Gap 10, BUN 61 H, Creatinine 1.35 H, Estim Creat Clear Calc 34.28, Est GFR (MDRD) Af Amer 52 L, Est GFR (MDRD) Non-Af 43 L, BUN/Creatinine Ratio 45.2 H, Glucose 106, Calcium 8.3 L, Magnesium 1.9, Total Bilirubin 0.50, AST 119 H, ALT 292 H, Alkaline Phosphatase 226 H, Total Protein 4.9 L, Albumin 1.3 L, Globulin 3.6, Albumin/Globulin Ratio 0.4 L 05/16/22 11:09: POC Glucose 116 H Micro: Microbiology 05/14/22 05:55 Blood Culture (Wb) - Left Forearm Blood Culture - Preliminary No growth in 48 hours. 05/14/22 05:35 Blood Culture (Wb) - Right Forearm Blood Culture - Preliminary No growth in 48 hours. 05/14/22 11:30 Urine Catheter - Isbell Urine Culture - Final Culture exhibits no growth. 05/12/22 22:50 Blood Culture (Wb) - Chest Blood Culture - Preliminary No growth in 48 hours. 05/12/22 22:29 Blood Culture (Wb) - Right Wrist Blood Culture - Preliminary No growth in 48 hours. 05/13/22 09:30 Sputum, Induced/Lukens Gram Stain - Final 05/13/22 09:30 Sputum, Induced/Lukens Respiratory Culture - Final Presumptive C albicans 05/12/22 22:30 Urine, Catheterized Urine Culture - Final Culture exhibits no growth. 05/13/22 00:46 Urine Catheter - Catheter Legionella Antigen - Final 05/13/22 00:46 Urine Catheter - Catheter Streptococcus pneumoniae Antigen (M - Final 05/12/22 22:30 Nasal Secretion SARS-CoV-2 & FLU Antigen (Rapid) - Final ABG Data ABG results: ABG 05/16/22 07:29 Specimen Type MEDHAT Sample Site L Radial VBG pH 7.36 VBG pO2 58 H VBG HCO3 21 L VBG Total CO2 22 L VBG O2 Sat (Calc) 89 H VBG Base Excess -5 L POC Mix VBG pCO2 Pt Tmp 37.0 L O2 Delivery Device Adult Vent POC PEEP 8 POC Pressure Suppt 5 Radiography Diagnostic Testing: Radiology Impression Chest X-Ray 05/16/22 05:20 IMPRESSION: Slight improvement in right mid to lower lung opacity. Electronically Signed: Timothy Berry MD at 5:38 EDT , Brain CT 05/16/22 09:23 IMPRESSION: Large regions of abnormal edema in the parietal occipital lobes with smaller regions of abnormal edema in the cerebellum, concerning for large acute infarctions versus acute hypertensive encephalopathy. Recommend follow-up or MRI. No acute intracranial hemorrhage identified. Electronically Signed: Jasmine Burgess MD at 10:06 EDT , ADDENDUM: 05/16/22 1018 IMPRESSION: Large regions of abnormal edema in the parietal occipital lobes with smaller regions of abnormal edema in the cerebellum, concerning for large acute infarctions versus acute hypertensive encephalopathy. Recommend follow-up or MRI. No acute intracranial hemorrhage identified. N.B. : The above information has been verbally conveyed by Jasmine Burgess MD to Oj Franco RN, on 05/16/2022 10:11:57 (ET). Electronically Signed: Jasmine Burgess MD at 10:06 EDT , Head/Neck CTA 05/16/22 11:41 IMPRESSION: No evidence for significant stenosis or occlusion in the carotid or vertebral arteries of the neck. No evidence for focal vascular abnormality in the [place] region. Electronically Signed: Jasmine Burgess MD at 12:25 EDT Reading Location ID and State: [facility] / [place] Tel , Service support , ADDENDUM: 05/16/22 1234 IMPRESSION: No evidence for significant stenosis or occlusion in the carotid or vertebral arteries of the neck. No evidence for focal vascular abnormality in the [place] region. N.B. : The above Results were Read Back by Jasmine Burgess MD to Marzena Marcial RN, and understanding confirmed on 05/16/2022 12:27:50 (ET). Electronically Signed: Jasmine Burgess MD at 12:25 EDT , Rhythm Strip Rhythm Strip: In and out of sinus rhythm Physical Exam Const Constitutional Narrative: Intubated, RASS score is -4 General Appearance: intubated and patient mechanically ventilated HEENT normocephalic and head/scalp atraumatic Eyes PERRL and conjunctivae normal Neck supple and no JVD General: trachea midline Resp normal respiratory effort, no retractions and no use of accessory muscles Resp Narrative: intubated, RASS score is -4 Auscultation: Negative for crackles, rales, rhonchi or wheezes Cardio regular rate, regular rhythm, S1 normal heart sound, S2 normal heart sound and no murmurs GI normal to inspection, nondistended, normoactive bowel sounds, soft to palpation, non-tender and non-distended; Negative for hepatosplenomegaly Extremity normal capillary refill and no clubbing, cyanosis or edema Skin no rashes or lesions noted General Skin Exam: no breakdown Neuro Neuro Narrative: intubated, sedated Sensorium / Orientation: sedated on vent Psych Appearance: intubated Assessment & Plan Assessment/Plan (1) Small bowel obstruction: (2) S/P exploratory laparotomy: (3) Acute respiratory failure with hypoxia: (4) ARDS (adult respiratory distress syndrome): (5) Aspiration pneumonia: (6) Septic shock: PLAN: Plan #Acute hypoxic respiratory failure due to aspiration pneumonia and ARDS * was on spontaneous breathing trial this morning, and did well * was subsequently extubated this morning * sputum culturs are negative * on IV vancomycin and zosyn * #Acute CVA * patient was noted to have right sided hemiparesis after extubation * CT of the brain showed large areas of abnormal edema in the parietal occipital lobes with smaller regions of abnormal edema in the cerebellum concerning for large acute infarctions versus hepatic encephalopathy. * CTA head and neck showed no evidence of hemodynamic currently significant stenosis * Patient was evaluated by [facility] neurology after stroke alert was ordered. [facility] telestroke neurologist reviewed imaging and thought patient had bilateral ischemic strokes. Neurologist recommended holding off on anticoagulation for now given the patient has A-fib and to start aspirin. * Will give high intensity statin. * PT OT on board. * #Afib with RVR: on cardizem drip. Neurology reommended against starting full anticoagulation now. Wean off cardizem as tolerated. #ROSALIE * resolved. CR is down to 1.35. Will monitor * #Small bowel obstruction and incarcerated hernia * s/p exploratory laparotomy * maintain NPO. * to start tube feeds tomorrow per general surgery * management as per general surgery * NG tube in place * #Hypokalemia: replace and trend #Hypotension: likely due to cardizem drip> now resolved. Was initially in septic shock, but this has now resolved. DVT prophylais: lovenox Charges/Coding Visit Charges Inpatient E&M: 82775 [facility] Hosp L3
[2022-05-16] MEDS: Dext 5%-0.45% NS 1,000 ML 75 ML IV (15:23)
[2022-05-16] MEDS: 0.9% Saline Lock 10 ML Syringe IV ×2 (15:32→21:00)
[2022-05-16] MEDS: Potassium Chloride 20mEq/100mL 20 MEQ/100 ML IV.SOLN. 100 MEQ IV BOLUS ×3 (15:51→21:00)
[2022-05-16 16:12] LABS: Anion Gap 10 (5-15); BUN 48 mg/dL (7-18); BUN/Creat Ratio 41.4 RATIO (10-20); Chloride 114 mmol/L (98-107); Creatinine, Serum 1.16 mg/dL (0.55-1.02); Glucose 143 mg/dL (74-106); Potassium 2.6 mmol/L (3.5-5.1); Sodium Level 148 mmol/L (136-145)
[2022-05-16] MEDS: Aspirin 300 MG Suppository RC (18:53)
[2022-05-16 20:29] LABS: Anion Gap 9 (5-15); BUN 46 mg/dL (7-18); BUN/Creat Ratio 40.4 RATIO (10-20); Calcium,Total 8.7 mg/dL (8.5-10.1); Chloride 113 mmol/L (98-107); Creatinine, Serum 1.14 mg/dL (0.55-1.02); EST Glomerular Filtration Rate 52 mL/min (>60); Est Glom Filt Rate - Afr Amer 63 mL/min (>60); Estimated Creatinine Clearance 40.59 ml/min; Glucose 216 mg/dL (74-106); Potassium 3.1 mmol/L (3.5-5.1); Sodium Level 148 mmol/L (136-145)
[2022-05-17] VITALS (16 sets, daily range): BP systolic 122–159; BP diastolic 86–112; PULSE 96–120; RESP 16–29; TEMP 36.6–37.4; O2SAT 94–98; BMI 19.1
[2022-05-17] MEDS: Dext 5%-0.45% NS 1,000 ML 100 ML IV (02:46)
[2022-05-17 04:17] LABS: Hematocrit 33.4 % (37-47); Hemoglobin 11.3 g/dL (12.0-15.0); Mean Corp Hgb Conc 33.8 g/dL (32-36); Mean Corpuscular Hgb 30.9 pg (27.0-32.0); Mean Corpuscular Volume 91.3 fL (81-99); Mean Platelet Vol. 9.8 fl (6.2-12.0); POSITIVE COUNT YES; POSITIVE MORPHOLOGY YES; Platelet Count 184 K/mm3 (150-450); RBC Distribution Width CV 14.2 % (11.6-14.6); RBC Distribution Width SD 47.5 fl (35.1-43.9); Red Blood Count 3.66 M/mm3 (4.2-5.4); White Blood Count 19.9 K/mm3 (4.4-11.0)
[2022-05-17 04:26] LABS: International Normalized Ratio 1.1; Prothrombin Time (Protime)PT. 14.2 SECONDS (11.7-14.9)
[2022-05-17 04:32] LABS: Differential Indicated MANUAL DIFF
[2022-05-17 04:40] LABS: Anion Gap 8 (5-15); BUN 40 mg/dL (7-18); BUN/Creat Ratio 39.6 RATIO (10-20); Calcium,Total 8.3 mg/dL (8.5-10.1); Chloride 114 mmol/L (98-107); Creatinine, Serum 1.01 mg/dL (0.55-1.02); EST Glomerular Filtration Rate 60 mL/min (>60); Est Glom Filt Rate - Afr Amer 72 mL/min (>60); Estimated Creatinine Clearance 45.81 ml/min; Glucose 236 mg/dL (74-106); Magnesium 1.5 mg/dL (1.6-2.6); Sodium Level 149 mmol/L (136-145)
[2022-05-17 04:47] LABS: Lymphocyte 1 % (19-41); Monocyte 4 % (0-10); Myelocyte 5 % (0-0); Neutrophil-Segmented 88 % (47-70); Promyelocyte 2 % (0-0); Total Cells Counted 100 (MANUAL DIFF)
[2022-05-17 04:50] LABS: Platelet Estimate ADEQUATE (ADEQ); Tear Drop Cell 1+
[2022-05-17 04:51] LABS: Platelet Morphology GIANT
[2022-05-17 04:52] LABS: Red Cell Morphology NORM C+C NORMAL (NORM C&C)
[2022-05-17 04:56] LABS: Absolute Neutrophil Count 17.5 X10^3/uL (2.0-7.7)
[2022-05-17 04:58] LABS: Absolute Lymphocyte Count 0.19 X10^3/uL (0.83-4.51)
[2022-05-17] MEDS: CHLORHEXIDINE GLUC 2% CLOTH 1 EACH TOWELETTE TOPICAL (06:01)
[2022-05-17] MEDS: dexAMETHasone 4 MG/ML Vial IV (06:01)
--- NOTE | 2022-05-17 06:29 | PN.CC_ITS ---
Assessment & Plan Assessment/Plan (1) Acute respiratory failure with hypoxia: PLAN: Plan RECOMMENDATIONS: 1. PT/OT evaluations. 2. Aggressive bronchopulmonary hygiene and aspiration precautions. 3. Speech therapy evaluation. 4. Start D5W with aggressive electrolyte repletion. 5. Decrease Decadron dosing to daily. 6. Okay to discontinue Cardizem. 7. Restart DVT prophylaxis. 8. Goals of care discussion with the patient's family. IMPRESSIONS: 1. Acute hypoxemic respiratory failure secondary to ARDS due to aspiration pneumonia Resolved. The patient was ultimately able to be extubated on May 16 and is doing well from a respiratory perspective on room air. Plan to continue bronchopulmonary hygiene maneuvers along with aspiration precautions. The patient will be continued on empiric antimicrobials to complete a 7-day treatment course. 2. Acute CVA MRI brain demonstrated large regions of restricted diffusion in the bilateral posterior cerebral hemispheres, concerning for acute infarction. The exact etiology for the patient's CVA is not entirely clear. However, I do suspect a multifactorial etiology, including atrial fibrillation with RVR, hypotension and hypoxemia. The patient has significant neurologic deficits. It is unclear how much she will be able to engage in physical therapy. Ultimately, will need to discuss potential PEG tube placement for nutritional support. 3. Atrial fibrillation with rapid ventricular response Resolved. The patient is currently in sinus rhythm. Therefore, we will plan to discontinue Cardizem. We will continue to monitor the patient clinically. 4. Small bowel obstruction status post resection and anastomoses Continue routine postoperative care per general surgery recommendations. 5. Hypernatremia/hyperchloremia/hypokalemia Start D5W with aggressive electrolyte repletion as ordered. This note was generated with [employer] dictation software. It may contain incorrect words, spelling, and punctuation that were not noted in checking the note before signing. Subjective Subjective The patient was seen and examined at the bedside this morning. Events from the last 24 hours have been reviewed. The patient is currently afebrile, hemodynamically stable and maintaining appropriate oxygen saturations on room air. White count remains elevated at nearly 20,000. Chemistry profile was notable for a sodium of 149, potassium of 3.0, chloride of 114 and normal creatinine. The patient was initially admitted on May 13 after presenting with an incarcerated left inguinal hernia causing bowel obstruction. The patient was taken to the OR on May 13 and underwent a diagnostic laparoscopy with reduction of left inguinal hernia, small bowel resection and anastomosis. The patient's hospital course was complicated by acute hypoxemic respiratory failure secondary to ARDS due to aspiration pneumonia along with septic shock and acute kidney injury. During the overnight hours of May 14, the patient was noted to go into atrial fibrillation with a rapid ventricular rate. The patient was medically managed with Cardizem and eventually converted to sinus rhythm. The patient was able to be extubated on the morning of May 16, after which time, she was noted to have dense left-sided hemiparesis. Consultation was obtained by neurology and head imaging was completed. Brain MRI did confirm large regions of restricted diffusion in the bilateral posterior cerebral hemispheres concerning for large acute infarcts. Small bilateral cerebellar infarcts were also noted. Infectious work-up has been unrevealing to date. Objective Data Objective Data The patient's most recent lab work, culture data and imaging studies have all been personally reviewed. Surface echocardiogram demonstrated normal LV size and function with an ejection fraction of 65%. Vital Signs: Vital Signs Temp Pulse Resp BP Pulse Ox O2 Del Method O2 Flow Rate 99.2 F H 115 H 26 H 149/109 H 95 Room Air 1 05/17/22 05:00 05/17/22 06:00 05/17/22 06:00 05/17/22 06:00 05/17/22 06:00 05/17/22 06:00 05/16/22 11:30 FiO2 35 05/16/22 08:00 Oxygen Flow Rate (L/min) 1 Oxygen Delivery Method Room Air Weight: 103 lb 9.876 oz Body Mass Index (BMI) 19.1 Intake & Output: Intake and Output for Last 24 Hours 05/15/22 05/16/22 05/17/22 23:59 23:59 23:59 Intake Total 3184.09 / 3249.09 3999.38 / 4004.38 502.34 / 502.34 Output Total 1650 / 2050 4250 / 5450 2350 / 2350 Balance 1534.09 / 1199.09 -250.62 / -1445.62 -1847.66 / -1847.66 Lab / Micro Data Attestation: I reviewed the patient's lab results. Result Diagrams: 05/17/22 03:57 05/17/22 03:57 Labs: Laboratory Results - last 24 hr 05/16/22 11:09: POC Glucose 116 H 05/16/22 15:05: Sodium 148 H, Potassium 2.6 L*, Chloride 114 H, Carbon Dioxide 24.0, Anion Gap 10, BUN 48 H, Creatinine 1.16 H, BUN/Creatinine Ratio 41.4 H, Glucose 143 H 05/16/22 20:00: Sodium 148 H, Potassium 3.1 L, Chloride 113 H, Carbon Dioxide 26.0, Anion Gap 9, BUN 46 H, Creatinine 1.14 H, Estim Creat Clear Calc 40.59, Est GFR (MDRD) Af Amer 63, Est GFR (MDRD) Non-Af 52 L, BUN/Creatinine Ratio 40.4 H, Glucose 216 H, Calcium 8.7 05/17/22 03:57: WBC 19.9 H, RBC 3.66 L, Hgb 11.3 L, Hct 33.4 L, MCV 91.3, MCH 30.9, MCHC 33.8, RDW Std Deviation 47.5 H, RDW Coeff of Audrey 14.2, Plt Count 184, MPV 9.8, Neut % (Auto) Not Reportable, Absolute Neuts (auto) 17.5 H, Absolute Lymphs (auto) 0.19 L, Total Counted 100, Neutrophils % (Manual) 88 H, Lymphocytes % (Manual) 1 L, Monocytes % (Manual) 4, Myelocytes % 5 H, Promyelocytes % 2 H, Diff Path Review May foll, Platelet Estimate ADEQUATE, Plt Morphology Comment GIANT, RBC Morphology NORM C+C, Tear Drop Cells 1+ 05/17/22 03:57: PT 14.2, INR 1.1 05/17/22 03:57: Sodium 149 H, Potassium 3.0 L, Chloride 114 H, Carbon Dioxide 27.0, Anion Gap 8, BUN 40 H, Creatinine 1.01, Estim Creat Clear Calc 45.81, Est GFR (MDRD) Af Amer 72, Est GFR (MDRD) Non-Af 60, BUN/Creatinine Ratio 39.6 H, Glucose 236 H, Calcium 8.3 L, Magnesium 1.5 L Micro: Microbiology 05/14/22 05:55 Blood Culture (Wb) - Left Forearm Blood Culture - Preliminary No growth in 48 hours. 05/14/22 05:35 Blood Culture (Wb) - Right Forearm Blood Culture - Prelim inary No growth in 48 hours. 05/14/22 11:30 Urine Catheter - Isbell Urine Culture - Final Culture exhibits no growth. 05/12/22 22:50 Blood Culture (Wb) - Chest Blood Culture - Preliminary No growth in 48 hours. 05/12/22 22:29 Blood Culture (Wb) - Right Wrist Blood Culture - Preliminary No growth in 48 hours. 05/13/22 09:30 Sputum, Induced/Lukens Gram Stain - Final 05/13/22 09:30 Sputum, Induced/Lukens Respiratory Culture - Final Presumptive C albicans 05/12/22 22:30 Urine, Catheterized Urine Culture - Final Culture exhibits no growth. 05/13/22 00:46 Urine Catheter - Catheter Legionella Antigen - Final 05/13/22 00:46 Urine Catheter - Catheter Streptococcus pneumoniae Antigen (M - Final 05/12/22 22:30 Nasal Secretion SARS-CoV-2 & FLU Antigen (Rapid) - Final ABG Data ABG results: ABG 05/16/22 07:29 Specimen Type MEDHAT Sample Site L Radial VBG pH 7.36 VBG pO2 58 H VBG HCO3 21 L VBG Total CO2 22 L VBG O2 Sat (Calc) 89 H VBG Base Excess -5 L POC Mix VBG pCO2 Pt Tmp 37.0 L O2 Delivery Device Adult Vent POC PEEP 8 POC Pressure Suppt 5 Radiography Diagnostic Testing: Radiology Impression Brain CT 05/16/22 09:23 IMPRESSION: Large regions of abnormal edema in the parietal occipital lobes with smaller regions of abnormal edema in the cerebellum, concerning for large acute infarctions versus acute hypertensive encephalopathy. Recommend follow-up or MRI. No acute intracranial hemorrhage identified. Electronically Signed: Jasmine Burgess MD at 10:06 EDT , ADDENDUM: 05/16/22 1018 IMPRESSION: Large regions of abnormal edema in the parietal occipital lobes with smaller regions of abnormal edema in the cerebellum, concerning for large acute infarctions versus acute hypertensive encephalopathy. Recommend follow-up or MRI. No acute intracranial hemorrhage identified. N.B. : The above information has been verbally conveyed by Jasmine Burgess MD to Oj Franco RN, on 05/16/2022 10:11:57 (ET). Electronically Signed: Jasmine Burgess MD at 10:06 EDT , Head/Neck CTA 05/16/22 11:41 IMPRESSION: No evidence for significant stenosis or occlusion in the carotid or vertebral arteries of the neck. No evidence for focal vascular abnormality in the [place] region. Electronically Signed: Jasmine Burgess MD at 12:25 EDT , ADDENDUM: 05/16/22 1234 IMPRESSION: No evidence for significant stenosis or occlusion in the carotid or vertebral arteries of the neck. No evidence for focal vascular abnormality in the [place]. N.B. : The above Results were Read Back by Jasmine Burgess MD to Marzena Marcial RN, and understanding confirmed on 05/16/2022 12:27:50 (ET). Electronically Signed: Jasmine Burgess MD at 12:25 EDT , Brain MRI 05/16/22 12:13 IMPRESSION: Large regions of restricted diffusion in the bilateral posterior cerebral hemispheres concerning for large acute infarcts. Small bilateral cerebellar infarcts. Small acute lacunar infarcts in the bilateral basal ganglia. Acute hypertensive encephalopathy, hypoglycemia, or status epilepticus could have a similar appearance but considered less likely. Electronically Signed: Jasmine Burgess MD at 15:02 EDT , ADDENDUM: 05/16/22 1523 IMPRESSION: Large regions of restricted diffusion in the bilateral posterior cerebral hemispheres concerning for large acute infarcts. Small bilateral cerebellar infarcts. Small acute lacunar infarcts in the bilateral basal ganglia. Acute hypertensive encephalopathy, hypoglycemia, or status epilepticus could have a similar appearance but considered less likely. N.B. : Marzena Marcial RN, confirmed on 05/16/2022 15:17:04 (ET) that the healthcare facility has received the radiology report. Electronically Signed: Jasmine Burgess MD at 15:02 EDT Reading Location ID and State: [facility] / [place] Tel , Service support , Rhythm Strip Rhythm Strip: In and out of sinus rhythm Physical Exam Const Constitutional Narrative: Minimally responsive to verbal and tactile stimulation. HEENT normocephalic and head/scalp atraumatic Eyes PERRL Eyes Narrative: Will not voluntarily open eyes. Neck supple General: trachea midline Chest inspection of chest normal Resp normal respiratory effort Resp Narrative: Poor inspiratory effort. Auscultation: diminished lung sounds Cardio S1 normal heart sound and S2 normal heart sound Cardio Narrative: Sinus rhythm on telemetry. Rate: tachycardic GI normal to inspection, nondistended, normoactive bowel sounds Extremity no clubbing, cyanosis or edema Skin no rashes or lesions noted Neuro Neuro Narrative: The patient will not voluntarily open her eyes or talk. She is not currently moving any of her upper or lower extremities. Psych Mood & Affect: flat affect Charges/Coding Visit Charges Inpatient E&M: 48749 Subs Hosp L3
[2022-05-17] MEDS: Ipratropium 0.5 MG/2.5 ML SOLUTION INHALATION ×3 (06:33→19:24)
--- NOTE | 2022-05-17 07:25 | PN.SURG_ITS ---
Subjective Subjective events noted over weekend. Pt nods to name and open eyes and moves right upper extremity. Objective Data Objective Data Vital Signs: Vital Signs Temp Pulse Resp BP Pulse Ox O2 Del Method O2 Flow Rate 99.2 F H 118 H 23 H 133/109 H 96 Room Air 1 05/17/22 05:00 05/17/22 07:00 05/17/22 07:00 05/17/22 07:00 05/17/22 07:00 05/17/22 07:00 05/16/22 11:30 FiO2 35 05/16/22 08:00 Oxygen Flow Rate (L/min) 1 Oxygen Delivery Method Room Air Weight: 103 lb 9.876 oz Body Mass Index (BMI) 19.1 Intake & Output: Intake and Output for Last 24 Hours 05/15/22 05/16/22 05/17/22 23:59 23:59 23:59 Intake Total 3184.09 / 3249.09 3999.38 / 4004.38 507.34 / 507.34 Output Total 1650 / 2050 4250 / 5450 2350 / 2350 Balance 1534.09 / 1199.09 -250.62 / -1445.62 -1842.66 / -1842.66 Lab / Micro Data Result Diagrams: 05/17/22 03:57 05/17/22 03:57 Labs: Laboratory Results - last 24 hr 05/16/22 11:09: POC Glucose 116 H 05/16/22 15:05: Sodium 148 H, Potassium 2.6 L*, Chloride 114 H, Carbon Dioxide 24.0, Anion Gap 10, BUN 48 H, Creatinine 1.16 H, BUN/Creatinine Ratio 41.4 H, Glucose 143 H 05/16/22 20:00: Sodium 148 H, Potassium 3.1 L, Chloride 113 H, Carbon Dioxide 26.0, Anion Gap 9, BUN 46 H, Creatinine 1.14 H, Estim Creat Clear Calc 40.59, Est GFR (MDRD) Af Amer 63, Est GFR (MDRD) Non-Af 52 L, BUN/Creatinine Ratio 40.4 H, Glucose 216 H, Calcium 8.7 05/17/22 03:57: WBC 19.9 H, RBC 3.66 L, Hgb 11.3 L, Hct 33.4 L, MCV 91.3, MCH 30.9, MCHC 33.8, RDW Std Deviation 47.5 H, RDW Coeff of Audrey 14.2, Plt Count 184, MPV 9.8, Neut % (Auto) Not Reportable, Absolute Neuts (auto) 17.5 H, Absolute Lymphs (auto) 0.19 L, Total Counted 100, Neutrophils % (Manual) 88 H, Lymphocytes % (Manual) 1 L, Monocytes % (Manual) 4, Myelocytes % 5 H, Promyelocytes % 2 H, Diff Path Review May foll, Platelet Estimate ADEQUATE, Plt Morphology Comment GIANT, RBC Morphology NORM C+C, Tear Drop Cells 1+ 05/17/22 03:57: PT 14.2, INR 1.1 05/17/22 03:57: Sodium 149 H, Potassium 3.0 L, Chloride 114 H, Carbon Dioxide 27.0, Anion Gap 8, BUN 40 H, Creatinine 1.01, Estim Creat Clear Calc 45.81, Est GFR (MDRD) Af Amer 72, Est GFR (MDRD) Non-Af 60, BUN/Creatinine Ratio 39.6 H, Glucose 236 H, Calcium 8.3 L, Magnesium 1.5 L Micro: Microbiology 05/14/22 05:55 Blood Culture (Wb) - Left Forearm Blood Culture - Preliminary No growth in 48 hours. 05/14/22 05:35 Blood Culture (Wb) - Right Forearm Blood Culture - Preliminary No growth in 48 hours. 05/14/22 11:30 Urine Catheter - Isbell Urine Culture - Final Culture exhibits no growth. 05/12/22 22:50 Blood Culture (Wb) - Chest Blood Culture - Preliminary No growth in 48 hours. 05/12/22 22:29 Blood Culture (Wb) - Right Wrist Blood Culture - Preliminary No growth in 48 hours. 05/13/22 09:30 Sputum, Induced/Lukens Gram Stain - Final 05/13/22 09:30 Sputum, Induced/Lukens Respiratory Culture - Final Presumptive C albicans 05/12/22 22:30 Urine, Catheterized Urine Culture - Final Culture exhibits no growth. 05/13/22 00:46 Urine Catheter - Catheter Legionella Antigen - Final 05/13/22 00:46 Urine Catheter - Catheter Streptococcus pneumoniae Antigen (M - Final 05/12/22 22:30 Nasal Secretion SARS-CoV-2 & FLU Antigen (Rapid) - Final ABG Data ABG results: ABG 05/16/22 07:29 Specimen Type MEDHAT Sample Site L Radial VBG pH 7.36 VBG pO2 58 H VBG HCO3 21 L VBG Total CO2 22 L VBG O2 Sat (Calc) 89 H VBG Base Excess -5 L POC Mix VBG pCO2 Pt Tmp 37.0 L O2 Delivery Device Adult Vent POC PEEP 8 POC Pressure Suppt 5 Radiography Diagnostic Testing: Radiology Impression Brain CT 05/16/22 09:23 IMPRESSION: Large regions of abnormal edema in the parietal occipital lobes with smaller regions of abnormal edema in the cerebellum, concerning for large acute infarctions versus acute hypertensive encephalopathy. Recommend follow-up or MRI. No acute intracranial hemorrhage identified. Electronically Signed: Jasmine Burgess MD at 10:06 EDT Reading Location ID and State: [facility] / [place] Tel , Service support , ADDENDUM: 05/16/22 1018 IMPRESSION: Large regions of abnormal edema in the parietal occipital lobes with smaller regions of abnormal edema in the cerebellum, concerning for large acute infarctions versus acute hypertensive encephalopathy. Recommend follow-up or MRI. No acute intracranial hemorrhage identified. N.B. : The above information has been verbally conveyed by Jasmine Burgess MD to Oj Franco RN, on 05/16/2022 10:11:57 (ET). Electronically Signed: Jasmine Burgess MD at 10:06 EDT Reading Location ID and State: [facility] / [place] Tel , Service support , Head/Neck CTA 05/16/22 11:41 IMPRESSION: No evidence for significant stenosis or occlusion in the carotid or vertebral arteries of the neck. No evidence for focal vascular abnormality in the [place] region. Electronically Signed: Jasmine Burgess MD at 12:25 EDT , ADDENDUM: 05/16/22 1234 IMPRESSION: No evidence for significant stenosis or occlusion in the carotid or vertebral arteries of the neck. No evidence for focal vascular abnormality in the [place] region. N.B. : The above Results were Read Back by Jasmine Burgess MD to Marzena Marcial RN, and understanding confirmed on 05/16/2022 12:27:50 (ET). Electronically Signed: Jasmine Burgess MD at 12:25 EDT , Brain MRI 05/16/22 12:13 IMPRESSION: Large regions of restricted diffusion in the bilateral posterior cerebral hemispheres concerning for large acute infarcts. Small bilateral cerebellar infarcts. Small acute lacunar infarcts in the bilateral basal ganglia. Acute hypertensive encephalopathy, hypoglycemia, or status epilepticus could have a similar appearance but considered less likely. Electronically Signed: Jasmine Burgess MD at 15:02 EDT , ADDENDUM: 05/16/22 1523 IMPRESSION: Large regions of restricted diffusion in the bilateral posterior cerebral hemispheres concerning for large acute infarcts. Small bilateral cerebellar infarcts. Small acute lacunar infarcts in the bilateral basal ganglia. Acute hypertensive encephalopathy, hypoglycemia, or status epilepticus could have a similar appearance but considered less likely. N.B. : Marzena Marcial RN, confirmed on 05/16/2022 15:17:04 (ET) that the healthcare facility has received the radiology report. Electronically Signed: Jasmine Burgess MD at 15:02 EDT , Rhythm Strip Rhythm Strip: In and out of sinus rhythm Physical Exam Narrative Patient opens eyes to name and nods, nonverbal, 4-5 strength in the right hand, no movement bilateral lower extremities or left arm. Resp normal respiratory effort Cardio regular rate GI soft to palpation and non-tender GI Narrative: No bulge in the left groin or events or hernia, incisions dressed clean dry and intact Extremity Extremity Narrative: Does not move her lower extremities or left arm, 4-5 strength right hand Assessment & Plan Assessment/Plan (1) S/P exploratory laparotomy: (2) Recurrent inguinal hernia of left side with obstruction: (3) Septic shock: (4) Aspiration pneumonia: (5) Acute respiratory failure with hypoxia: (6) Acute hypokalemia: (7) ROSALIE (acute kidney injury): (8) Acute hyponatremia: (9) Acute CVA (cerebrovascular accident): PLAN: Plan Appreciate ICU's assistance with acute events over the weekend, did discuss with Dr. Unger patient will likely need PEG tube. Patient could be started on low volume tube feeds until increased bowel function. Will need to place NG to see residual as pt did have SBR as well. White blood cell count improved to 19 continue antibiotics for aspiration pneumonia. Tahmina Wayen M.D. Pager: [phone] [facility] [address] [place] [address], [facility], [address] [place] [address] Office: [phone]
[2022-05-17 08:44] LABS: Vancomycin, Trough Level 8.7 ug/mL (5.0-15.0)
[2022-05-17] MEDS: Vancomycin IV 500 MG/100 ML BAG 100 MG IV (08:50)
--- NOTE | 2022-05-17 08:53 | PCM.RX.CS ---
Consult Pharmacy has been consulted to manage selected antiobiotic: Vancomycin Type of Consult: Follow-up Prior Doses of Antibiotics Received/Current Regimen: Medications Vancomycin HCl () 500 mg in 100 mls @ 100 mls/hr IV Q24H CARLO Last Admin: 05/16/22 10:04 Dose: Infused Labs: Sodium 149 mmol/L (136-145) H 05/17/22 03:57 Potassium 3.0 mmol/L (3.5-5.1) L 05/17/22 03:57 Chloride 114 mmol/L (98-107) H 05/17/22 03:57 Carbon Dioxide 27.0 mmol/L (21.0-32.0) 05/17/22 03:57 Anion Gap 8 (5-15) 05/17/22 03:57 BUN 40 mg/dL (7-18) H 05/17/22 03:57 Creatinine 1.01 mg/dL (0.55-1.02) 05/17/22 03:57 Est GFR (MDRD) Af Amer 72 mL/min (>60) 05/17/22 03:57 Est GFR (MDRD) Non-Af 60 mL/min (>60) 05/17/22 03:57 BUN/Creatinine Ratio 39.6 RATIO (10-20) H 05/17/22 03:57 Glucose 236 mg/dL (74-106) H 05/17/22 03:57 Vancomycin Trough 8.7 ug/mL (5.0-15.0) 05/17/22 08:20 Random Vancomycin 10.8 ug/mL (0.0-15.0) 05/15/22 05:50 Microbiology: Microbiology 05/14/22 05:55 Blood Culture (Wb) - Left Forearm Blood Culture - Preliminary No growth in 48 hours. 05/14/22 05:35 Blood Culture (Wb) - Right Forearm Blood Culture - Preliminary No growth in 48 hours. 05/14/22 11:30 Urine Catheter - Isbell Urine Culture - Final Culture exhibits no growth. 05/12/22 22:50 Blood Culture (Wb) - Chest Blood Culture - Preliminary No growth in 48 hours. 05/12/22 22:29 Blood Culture (Wb) - Right Wrist Blood Culture - Preliminary No growth in 48 hours. 05/13/22 09:30 Sputum, Induced/Lukens Gram Stain - Final 05/13/22 09:30 Sputum, Induced/Lukens Respiratory Culture - Final Presumptive C albicans 05/12/22 22:30 Urine, Catheterized Urine Culture - Final Culture exhibits no growth. 05/13/22 00:46 Urine Catheter - Catheter Legionella Antigen - Final 05/13/22 00:46 Urine Catheter - Catheter Streptococcus pneumoniae Antigen (M - Final 05/12/22 22:30 Nasal Secretion SARS-CoV-2 & FLU Antigen (Rapid) - Final Weight used for dosin kg Goal Trough: 15-20 mcg/mL Pharmacy Plan for Drug Dosing: Trough below goal. Likely not near steady-state, recommend to increase to 750mg IV q24h and re-check prior to 3rd dose. Pharmacy Service will continue to monitor and adjust dosing as required. Follow-Up Labs: Trough Vancomycin - 05/19 @ 0971
[2022-05-17] MEDS: Potassium Chloride 10mEq/100mL 10 MEQ/100 ML IV.SOLN. 100 MEQ IV BOLUS (08:55)
[2022-05-17] MEDS: Enoxaparin 40 MG/0.4 ML Syringe SC (08:55)
[2022-05-17] MEDS: Potassium Chloride 10mEq/100mL 10 MEQ/100 ML IV.SOLN. 200 MEQ IV BOLUS ×3 (09:01→10:36)
--- NOTE | 2022-05-17 10:12 | CASEMGMT ---
Social Work SW met with pt sister, Britany to begin discharge planning. Britany agreeable to meeting and accompanied SW to ICU family waiting room. Britany expressed feelings of frustration and anger about sisters situation. SW validated feelings and allowed Britany to vent about anger. Britany shared there is to be NO visitors other than herself as pt is easily overwhelmed and Britany wants to protect pt from stressful situations. SW asked Britany what had been shared regarding plan for pt. Britany stated Dr Unger thought pt may need assistance with eating so a possible feeding tube. SW discussed how pt may benefit from fci upon discharge. Britany agreed to this as pt not at prior level of functioning. A list of SNF providers including quality and resource use data consistent with the patient?s preferred geographic region, medical needs, and insurance network were provided from the [employer] Guide. Britany reviewed. SW explained that since pt has no insurance, if SNF is needed that a medicaid application will need to be completed to aid pt in receiving insurance. SASHA explained [facility] [employer] program and that [place], the [facility], would be in contact to assist Britany with completing the Medicaid application for pt. Britany voiced understanding. SW explained some financial documents that may be needed and proof of ID for pt. Britany shared would look for certificate and SS card and gather rent receipts and utility bills to move process quickly. SW encouraged Britany to call or visit SNFs that there may be interest in for pt. Britany stated [facility] may be a possibility but would look into the options before making a decision. SASHA called [employer] at [facility] [employer] and discussed need for medicaid application. [facility] voiced understanding, stated this pt and family was next on the list and would be contacted soon to work on medicaid application. PLAN: TBD-likely SNF [facility]
[2022-05-17] MEDS: Insulin Lispro 100 UNIT/ML INSULN.PEN SC ×2 (12:18→18:08)
[2022-05-17 12:21] LABS: Bedside Glucose 178 mg/dL (74-106)
--- NOTE | 2022-05-17 12:30 | RAD_ITS ---
STUDY: X-RAY - ABDOMEN/PELVIS REASON FOR EXAM: Female, 56 years old. NG Placed TECHNIQUE: Single AP view of the abdomen / pelvis. COMPARISON: None. FINDINGS: The tip of the nasogastric tube is in the body of the stomach. There is an unremarkable bowel gas pattern. Dextroscoliosis of the lumbar spine. RAD/Abdomen Single View IMPRESSION: The tip of the nasogastric tube is in the body of the stomach. Electronically Signed: Alton Gonzales MD at 13:09 EDT ,
--- NOTE | 2022-05-17 13:07 | PN_ITS ---
Subjective Subjective Patient seen and examined. Patient was very lethargic and would open her eyes in response to voice. However she was not verbalizing any words and not communicating. She was noted to have spontaneous movements of her right upper extremity but no movements noted of her left upper or lower extremity. Her Cardizem drip was turned off this morning. Objective Data Objective Data Vital Signs: Vital Signs Temp Pulse Resp BP Pulse Ox O2 Del Method O2 Flow Rate 99.4 F H 120 H 24 H 122/102 H 96 Room Air 1 05/17/22 12:00 05/17/22 12:55 05/17/22 12:55 05/17/22 12:00 05/17/22 12:00 05/17/22 12:00 05/16/22 11:30 FiO2 35 05/16/22 08:00 Oxygen Flow Rate (L/min) 1 Oxygen Delivery Method Room Air Weight: 103 lb 9.876 oz Body Mass Index (BMI) 19.1 Intake & Output: Intake and Output for Last 24 Hours 05/15/22 05/16/22 05/17/22 23:59 23:59 23:59 Intake Total 3184.09 / 3249.09 3999.38 / 4004.38 1619.50 / 1619.50 Output Total 1650 / 2050 4250 / 5450 2350 / 2350 Balance 1534.09 / 1199.09 -250.62 / -1445.62 -730.50 / -730.50 Lab / Micro Data Result Diagrams: 05/17/22 03:57 05/17/22 03:57 Labs: Laboratory Results - last 24 hr 05/16/22 15:05: Sodium 148 H, Potassium 2.6 L*, Chloride 114 H, Carbon Dioxide 24.0, Anion Gap 10, BUN 48 H, Creatinine 1.16 H, BUN/Creatinine Ratio 41.4 H, Glucose 143 H 05/16/22 20:00: Sodium 148 H, Potassium 3.1 L, Chloride 113 H, Carbon Dioxide 26.0, Anion Gap 9, BUN 46 H, Creatinine 1.14 H, Estim Creat Clear Calc 40.59, Est GFR (MDRD) Af Amer 63, Est GFR (MDRD) Non-Af 52 L, BUN/Creatinine Ratio 40.4 H, Glucose 216 H, Calcium 8.7 05/17/22 03:57: WBC 19.9 H, RBC 3.66 L, Hgb 11.3 L, Hct 33.4 L, MCV 91.3, MCH 30.9, MCHC 33.8, RDW Std Deviation 47.5 H, RDW Coeff of Audrey 14.2, Plt Count 184, MPV 9.8, Neut % (Auto) Not Reportable, Absolute Neuts (auto) 17.5 H, Absolute Lymphs (auto) 0.19 L, Total Counted 100, Neutrophils % (Manual) 88 H, Lymphocytes % (Manual) 1 L, Monocytes % (Manual) 4, Myelocytes % 5 H, Promyelocytes % 2 H, Diff Path Review May foll, Platelet Estimate ADEQUATE, Plt Morphology Comment GIANT, RBC Morphology NORM C+C, Tear Drop Cells 1+ 05/17/22 03:57: PT 14.2, INR 1.1 05/17/22 03:57: Sodium 149 H, Potassium 3.0 L, Chloride 114 H, Carbon Dioxide 27.0, Anion Gap 8, BUN 40 H, Creatinine 1.01, Estim Creat Clear Calc 45.81, Est GFR (MDRD) Af Amer 72, Est GFR (MDRD) Non-Af 60, BUN/Creatinine Ratio 39.6 H, Glucose 236 H, Calcium 8.3 L, Magnesium 1.5 L 05/17/22 08:00: Vancomycin Trough Cancelled 05/17/22 08:20: Vancomycin Trough 8.7 05/17/22 12:02: POC Glucose 178 H Micro: Microbiology 05/14/22 05:55 Blood Culture (Wb) - Left Forearm Blood Culture - Preliminary No growth in 48 hours. 05/14/22 05:35 Blood Culture (Wb) - Right Forearm Blood Culture - Preliminary No growth in 48 hours. 05/14/22 11:30 Urine Catheter - Isbell Urine Culture - Final Culture exhibits no growth. 05/12/22 22:50 Blood Culture (Wb) - Chest Blood Culture - Preliminary No growth in 48 hours. 05/12/22 22:29 Blood Culture (Wb) - Right Wrist Blood Culture - Preliminary No growth in 48 hours. 05/13/22 09:30 Sputum, Induced/Lukens Gram Stain - Final 05/13/22 09:30 Sputum, Induced/Lukens Respiratory Culture - Final Presumptive C albicans 05/12/22 22:30 Urine, Catheterized Urine Culture - Final Culture exhibits no growth. 05/13/22 00:46 Urine Catheter - Catheter Legionella Antigen - Final 05/13/22 00:46 Urine Catheter - Catheter Streptococcus pneumoniae Antigen (M - Final 05/12/22 22:30 Nasal Secretion SARS-CoV-2 & FLU Antigen (Rapid) - Final Radiography Diagnostic Testing: Radiology Impression Brain MRI 05/16/22 12:13 IMPRESSION: Large regions of restricted diffusion in the bilateral posterior cerebral hemispheres concerning for large acute infarcts. Small bilateral cerebellar infarcts. Small acute lacunar infarcts in the bilateral basal ganglia. Acute hypertensive encephalopathy, hypoglycemia, or status epilepticus could have a similar appearance but considered less likely. Electronically Signed: Jasmine Burgess MD at 15:02 EDT , ADDENDUM: 05/16/22 1523 IMPRESSION: Large regions of restricted diffusion in the bilateral posterior cerebral hemispheres concerning for large acute infarcts. Small bilateral cerebellar infarcts. Small acute lacunar infarcts in the bilateral basal ganglia. Acute hypertensive encephalopathy, hypoglycemia, or status epilepticus could have a similar appearance but considered less likely. N.B. : Marzena Marcial RN, confirmed on 05/16/2022 15:17:04 (ET) that the healthcare facility has received the radiology report. Electronically Signed: Jasmine Burgess MD at 15:02 EDT , Echocardiogram 05/16/22 12:50 Interpretation Summary Normal LV size. Left ventricular systolic function is normal. The estimated ejection fraction is 65 %. Bubble contrast study negative for right to left interatrial shunt. Ordering Physician: Bolivar Suarez Referring Physician: Lance Daley Performed By: Alexandru Robles RCS Rhythm Strip Rhythm Strip: In and out of sinus rhythm Physical Exam Const Constitutional Narrative: lethargic, minimally responsive HEENT normocephalic and head/scalp atraumatic Eyes PERRL and conjunctivae normal Neck supple and no JVD Resp normal respiratory effort, no retractions and no use of accessory muscles Resp Narrative: diminished breath sounds bibasally, no wheezes or crackles. On room air. Auscultation: Negative for crackles, rales, rhonchi or wheezes Cardio regular rhythm, S1 normal heart sound, S2 normal heart sound and no murmurs Cardio Narrative: tachycardic GI normal to inspection, nondistended, normoactive bowel sounds, soft to palpation, non-tender and non-distended; Negative for hepatosplenomegaly Extremity normal capillary refill, no clubbing, cyanosis or edema and no calf tenderness Skin no rashes or lesions noted General Skin Exam: no breakdown Neuro Neuro Narrative: lethargic, open eyes only in response to voice. spontaneous movement noted of RUE, no spontaneous movement noted of LUE and LLE Psych Psych Narrative: lethargic, minimally responsive Assessment & Plan Assessment/Plan (1) Small bowel obstruction: (2) S/P exploratory laparotomy: (3) Acute respiratory failure with hypoxia: (4) ARDS (adult respiratory distress syndrome): (5) Aspiration pneumonia: (6) Septic shock: PLAN: Plan #Acute hypoxic respiratory failure due to aspiration pneumonia and ARDS * was on spontaneous breathing trial this morning, and did well * extubated yesterday morning. * sputum culturs are negative * on IV vancomycin and zosyn * #Acute CVA * patient was noted to have right sided hemiparesis after extubation * CT of the brain showed large areas of abnormal edema in the parietal occipital lobes with smaller regions of abnormal edema in the cerebellum concerning for large acute infarctions versus hepatic encephalopathy. * CTA head and neck showed no evidence of hemodynamic currently significant stenosis * Patient was evaluated by [facility] neurology after stroke alert was ordered. * [facility] telestroke neurologist reviewed imaging and thought patient had bilateral ischemic strokes. Neurologist recommended holding off on anticoagulation for now given the patient has A-fib and to start aspirin. * Will give high intensity statin. * PT OT on board. * MRI of the brain showed large areas of restricted diffusion in the bilateral posterior cerebral hemispheres concerning for large acute infarct and small bilateral cerebellar infarcts as well as small acute lacunar infarct in the bilateral basal ganglia. * 2D echo today showed normal left ventricular size with normal left ventricular systolic function and EF of 65% with negative bubble study. * #Afib * heart rate is improving. Cardizem drip turned off this morning per electrical tech/project manager. * not started on anticoagulation yet due to risk of hemorrhagic transformation from large ischemic stroke * Will need to be fully anticoagulated. * #ROSALIE * resolved. CR is down to 1.35. Will monitor * #Small bowel obstruction and incarcerated hernia * s/p exploratory laparotomy * maintain NPO. * to start tube feeds tomorrow per general surgery * management as per general surgery * NG tube reinserted today due to concerns about ileus * #Hypokalemia: replace and trend #Hypotension: resolved. DVT prophylais: lovenox Disposition: transfer out of ICU today. Charges/Coding Visit Charges Inpatient E&M: 33984 [facility] L3
--- NOTE | 2022-05-17 14:29 | PCM.PN.REN ---
Subjective Subjective Following for ROSALIE Patient resting quietly. No acute distress noted. Objective Data Objective Data Vital Signs: Vital Signs Temp Pulse Resp BP Pulse Ox O2 Del Method O2 Flow Rate 99.4 F H 120 H 24 H 122/102 H 96 Room Air 1 05/17/22 12:00 05/17/22 12:55 05/17/22 12:55 05/17/22 12:00 05/17/22 12:00 05/17/22 12:00 05/16/22 11:30 FiO2 35 05/16/22 08:00 Oxygen Flow Rate (L/min) 1 Oxygen Delivery Method Room Air Weight: 47 kg Body Mass Index (BMI) 19.1 Intake & Output: Intake and Output for Last 24 Hours 05/15/22 05/16/22 05/17/22 23:59 23:59 23:59 Intake Total 3184.09 / 3249.09 3999.38 / 4004.38 1619.50 / 1619.50 Output Total 1650 / 2050 4250 / 5450 3800 / 3800 Balance 1534.09 / 1199.09 -250.62 / -1445.62 -2180.50 / -2180.50 Lab / Micro Data Result Diagrams: 05/17/22 03:57 05/17/22 03:57 Labs: Laboratory Results - last 24 hr 05/16/22 15:05: Sodium 148 H, Potassium 2.6 L*, Chloride 114 H, Carbon Dioxide 24.0, Anion Gap 10, BUN 48 H, Creatinine 1.16 H, BUN/Creatinine Ratio 41.4 H, Glucose 143 H 05/16/22 20:00: Sodium 148 H, Potassium 3.1 L, Chloride 113 H, Carbon Dioxide 26.0, Anion Gap 9, BUN 46 H, Creatinine 1.14 H, Estim Creat Clear Calc 40.59, Est GFR (MDRD) Af Amer 63, Est GFR (MDRD) Non-Af 52 L, BUN/Creatinine Ratio 40.4 H, Glucose 216 H, Calcium 8.7 05/17/22 03:57: WBC 19.9 H, RBC 3.66 L, Hgb 11.3 L, Hct 33.4 L, MCV 91.3, MCH 30.9, MCHC 33.8, RDW Std Deviation 47.5 H, RDW Coeff of Audrey 14.2, Plt Count 184, MPV 9.8, Neut % (Auto) Not Reportable, Absolute Neuts (auto) 17.5 H, Absolute Lymphs (auto) 0.19 L, Total Counted 100, Neutrophils % (Manual) 88 H, Lymphocytes % (Manual) 1 L, Monocytes % (Manual) 4, Myelocytes % 5 H, Promyelocytes % 2 H, Diff Path Review May foll, Platelet Estimate ADEQUATE, Plt Morphology Comment GIANT, RBC Morphology NORM C+C, Tear Drop Cells 1+ 05/17/22 03:57: PT 14.2, INR 1.1 05/17/22 03:57: Sodium 149 H, Potassium 3.0 L, Chloride 114 H, Carbon Dioxide 27.0, Anion Gap 8, BUN 40 H, Creatinine 1.01, Estim Creat Clear Calc 45.81, Est GFR (MDRD) Af Amer 72, Est GFR (MDRD) Non-Af 60, BUN/Creatinine Ratio 39.6 H, Glucose 236 H, Calcium 8.3 L, Magnesium 1.5 L 05/17/22 08:00: Vancomycin Trough Cancelled 05/17/22 08:20: Vancomycin Trough 8.7 05/17/22 12:02: POC Glucose 178 H Micro: Microbiology 05/14/22 05:55 Blood Culture (Wb) - Left Forearm Blood Culture - Preliminary No growth in 48 hours. 05/14/22 05:35 Blood Culture (Wb) - Right Forearm Blood Culture - Preliminary No growth in 48 hours. 05/14/22 11:30 Urine Catheter - Kovacs Urine Culture - Final Culture exhibits no growth. 05/12/22 22:50 Blood Culture (Wb) - Chest Blood Culture - Preliminary No growth in 48 hours. 05/12/22 22:29 Blood Culture (Wb) - Right Wrist Blood Culture - Preliminary No growth in 48 hours. 05/13/22 09:30 Sputum, Induced/Lukens Gram Stain - Final 05/13/22 09:30 Sputum, Induced/Lukens Respiratory Culture - Final Presumptive C albicans 05/12/22 22:30 Urine, Catheterized Urine Culture - Final Culture exhibits no growth. 05/13/22 00:46 Urine Catheter - Catheter Legionella Antigen - Final 05/13/22 00:46 Urine Catheter - Catheter Streptococcus pneumoniae Antigen (M - Final 05/12/22 22:30 Nasal Secretion SARS-CoV-2 & FLU Antigen (Rapid) - Final Radiography Diagnostic Testing: Radiology Impression Brain MRI 05/16/22 12:13 IMPRESSION: Large regions of restricted diffusion in the bilateral posterior cerebral hemispheres concerning for large acute infarcts. Small bilateral cerebellar infarcts. Small acute lacunar infarcts in the bilateral basal ganglia. Acute hypertensive encephalopathy, hypoglycemia, or status epilepticus could have a similar appearance but considered less likely. Electronically Signed: Jasmine Burgess MD at 15:02 EDT , ADDENDUM: 05/16/22 1523 IMPRESSION: Large regions of restricted diffusion in the bilateral posterior cerebral hemispheres concerning for large acute infarcts. Small bilateral cerebellar infarcts. Small acute lacunar infarcts in the bilateral basal ganglia. Acute hypertensive encephalopathy, hypoglycemia, or status epilepticus could have a similar appearance but considered less likely. N.B. : Marzena Marcial RN, confirmed on 05/16/2022 15:17:04 (ET) that the healthcare facility has received the radiology report. Electronically Signed: Jasmine Burgess MD at 15:02 EDT , Echocardiogram 05/16/22 12:50 Interpretation Summary Normal LV size. Left ventricular systolic function is normal. The estimated ejection fraction is 65 %. Bubble contrast study negative for right to left interatrial shunt. Ordering Physician: Bolivar Suarez Referring Physician: Lance Daley Performed By: Alexandru Robles RCS X-Ray 05/17/22 12:30 IMPRESSION: The tip of the nasogastric tube is in the body of the stomach. Electronically Signed: Alton Gonzales MD at 13:09 EDT , Rhythm Strip Rhythm Strip: In and out of sinus rhythm Physical Exam Narrative Resting quietly in bed, no apparent distress, not communicating, opens eyes LS CTA anteriorly and posteriorly S1 S2 RRR, no murmurs, rubs or gallops abdomen soft no edema to b/l legs or arms indwelling kovacs with clear yellow urine in bag/tubing Assessment & Plan Assessment/Plan (1) ROSALIE (acute kidney injury): (2) Septic shock: (3) S/P exploratory laparotomy: (4) Hypotension: PLAN: Plan This is a 56-year-old female with no known reported past medical history who presented to the emergency room May 13, 2022 with complaints of syncope, lightheadedness, productive green sputum and nausea. Patient was admitted for septic shock from pneumonia, ROSALIE, acute hypoxic respiratory failure and also found to have Strangulated left inguinal hernia status post repair on 05/13/2022. -Nonoliguric, hypovolemic ROSALIE likely secondary to ischemic ATN in setting of sepsis, hypotension, pneumonia, small bowel obstruction and incarcerated hernia status post exploratory laparotomy. Baseline creatinine unknown, labs April 2017 serum creatinine 0.73 mg/dL. Gap in lab work until this admission, on May 12 creatinine 2.10 mg/dL, serum creatinine peaked at 3.15 mg/dL on May 14 and patient has been on IVF since 05/14. Patient extubated now. Noncontrast CT of abdomen and pelvis: No hydronephrosis, no calculi demonstrated. UA negative for RBC, protein 15, specific gravity 1.020. Overall renal function improving and serum creatinine is down to 1.01 mg/dL today. Patient did not require any NITROGLYCERIN DISTRIBUTOR. -Replace potassium as already ordered. -Hypernatremia; patient is NPO and is now on D5W. Has NG due to concern for ileus and hopeful to start TF soon. - Acute CVA; evaluated by [facility] neurology. CT of the brain showed large areas of abnormal edema parietal occipital lobes with smaller regions of abnormal edema in the cerebellum concerning for large acute infarctions versus hepatic encephalopathy, CTA head/neck showed no evidence of hemodynamic currently significant stenosis; MRI of the brain showed large areas of restricted diffusion in bilateral posterior cerebral hemispheres concerning for large acute infarct and small bilateral cerebellar infarcts as well as small acute lacunar infarct in the bilateral basal ganglia
--- NOTE | 2022-05-17 14:37 | PCM.PN.BLA ---
Progress Note Pt opens eyes/nods to name, but doesn't keep eye open; moves RUE spontaneously- didn't follow commands; no movement of LUE and BLE. Abd: s/mild distension, incisions c/d/i, no hernia in left groin. NG placed--ok to start TF at 10 cc; don't increase until +BF
[2022-05-17] MEDS: Vital AF 1.2 Cal Liquid 1,000 ML 10 ML GT (15:07)
[2022-05-17 16:26] LABS: Mycoplasma Pneum AB IgG < 100 U/mL (0-99); Mycoplasma pneum. AB IgM < 770 U/mL (0-769)
[2022-05-17] MEDS: 0.9% Saline Lock 10 ML Syringe IV (18:08)
[2022-05-17 18:30] LABS: Bedside Glucose 197 mg/dL (74-106)
[2022-05-18] VITALS (9 sets, daily range): BP systolic 112–158; BP diastolic 77–101; PULSE 90–112; RESP 16–28; TEMP 36.5–36.8; O2SAT 88–97; BMI 19.3
[2022-05-18 02:01] LABS: Bedside Glucose 151 mg/dL (74-106)
[2022-05-18] MEDS: LORazepam 2 MG/ML Syringe 0.5 MG IV (02:48)
[2022-05-18] MEDS: Enoxaparin 40 MG/0.4 ML Syringe SC (06:05)
[2022-05-18 06:29] LABS: Hematocrit 34.9 % (37-47); Hemoglobin 11.8 g/dL (12.0-15.0); Mean Corp Hgb Conc 33.8 g/dL (32-36); Mean Corpuscular Volume 91.6 fL (81-99); Mean Platelet Vol. 10.5 fl (6.2-12.0); POSITIVE COUNT YES; POSITIVE DIFFERENTIAL YES; POSITIVE MORPHOLOGY YES; Platelet Count 183 K/mm3 (150-450); RBC Distribution Width CV 14.2 % (11.6-14.6); RBC Distribution Width SD 47.8 fl (35.1-43.9); Red Blood Count 3.81 M/mm3 (4.2-5.4); White Blood Count 24.4 K/mm3 (4.4-11.0)
[2022-05-18 06:37] LABS: Differential Indicated MANUAL DIFF
[2022-05-18 06:44] LABS: Magnesium 1.4 mg/dL (1.6-2.6)
[2022-05-18 06:57] LABS: Absolute Lymphocyte Count 3.42 X10^3/uL (0.83-4.51); Absolute Neutrophil Count 19.5 X10^3/uL (2.0-7.7)
[2022-05-18 06:58] LABS: Lymphocyte 14 % (19-41); Monocyte 7 % (0-10); Myelocyte 3 % (0-0); Neutrophil-Band 2 % (0-5); Neutrophil-Segmented 78 % (47-70); Platelet Estimate ADEQUATE (ADEQ); Red Cell Morphology NORM C+C NORMAL (NORM C&C); Total Cells Counted 100 (MANUAL DIFF)
[2022-05-18] MEDS: Ipratropium 0.5 MG/2.5 ML SOLUTION INHALATION ×3 (07:14→18:54)
[2022-05-18 07:30] LABS: Bedside Glucose 133 mg/dL (74-106)
--- NOTE | 2022-05-18 08:01 | PN.SURG_ITS ---
Subjective Subjective Per night nurse patient's followed commands with the right upper extremity and squeezing however this is intermittent. Patient's tolerating tube feeds at 10 cc an hour no bowel movement currently. Objective Data Objective Data Vital Signs: Vital Signs Temp Pulse Resp BP Pulse Ox O2 Del Method O2 Flow Rate 98.2 F 100 16 130/84 H 95 Room Air 1 05/18/22 04:04 05/18/22 04:04 05/18/22 04:04 05/18/22 04:04 05/18/22 07:40 05/18/22 07:40 05/16/22 11:30 FiO2 35 05/16/22 08:00 Oxygen Flow Rate (L/min) 1 Oxygen Delivery Method Room Air Weight: 104 lb 15.04 oz Body Mass Index (BMI) 19.3 Intake & Output: Intake and Output for Last 24 Hours 05/16/22 05/17/22 05/18/22 23:59 23:59 23:59 Intake Total 3999.38 / 4004.38 2719.50 / 2719.50 315 / 315 Output Total 4250 / 5450 4350 / 4690 540 / 540 Balance -250.62 / -1445.62 -1630.50 / -1970.50 -225 / -225 Lab / Micro Data Result Diagrams: 05/18/22 05:01 05/17/22 03:57 Labs: Laboratory Results - last 24 hr 05/14/22 05:25: Mycoplasma pneumon IgG < 100, Mycoplasma pneumon IgM < 770 05/17/22 08:00: Vancomycin Trough Cancelled 05/17/22 08:20: Vancomycin Trough 8.7 05/17/22 12:02: POC Glucose 178 H 05/17/22 18:07: POC Glucose 197 H 05/18/22 01:41: POC Glucose 151 H 05/18/22 05:01: WBC 24.4 H, RBC 3.81 L, Hgb 11.8 L, Hct 34.9 L, MCV 91.6, MCH 31.0, MCHC 33.8, RDW Std Deviation 47.8 H, RDW Coeff of Audrey 14.2, Plt Count 183, MPV 10.5, Neut % (Auto) Not Reportable, Absolute Neuts (auto) 19.5 H, Absolute Lymphs (auto) 3.42, Total Counted 100, Neutrophils % (Manual) 78 H, Band Neutrophils % 2, Lymphocytes % (Manual) 14 L, Monocytes % (Manual) 7, Myelocytes % 3 H, Diff Path Review May foll, Platelet Estimate ADEQUATE, RBC Morphology NORM C+C 05/18/22 05:01: Magnesium 1.4 L 05/18/22 06:54: POC Glucose 133 H Micro: Microbiology 05/14/22 05:55 Blood Culture (Wb) - Left Forearm Blood Culture - Preliminary Presumptive C albicans 05/12/22 22:50 Blood Culture (Wb) - Chest Blood Culture - Final No growth in 5 days. 05/12/22 22:29 Blood Culture (Wb) - Right Wrist Blood Culture - Final No growth in 5 days. 05/14/22 05:35 Blood Culture (Wb) - Right Forearm Blood Culture - Preliminary No growth in 48 hours. 05/14/22 11:30 Urine Catheter - Isbell Urine Culture - Final Culture exhibits no growth. 05/13/22 09:30 Sputum, Induced/Lukens Gram Stain - Final 05/13/22 09:30 Sputum, Induced/Lukens Respiratory Culture - Final Presumptive C albicans 05/12/22 22:30 Urine, Catheterized Urine Culture - Final Culture exhibits no growth. 05/13/22 00:46 Urine Catheter - Catheter Legionella Antigen - Final 05/13/22 00:46 Urine Catheter - Catheter Streptococcus pneumoniae Antigen (M - Final 05/12/22 22:30 Nasal Secretion SARS-CoV-2 & FLU Antigen (Rapid) - Final Radiography Diagnostic Testing: Radiology Impression Echocardiogram 05/16/22 12:50 Interpretation Summary Normal LV size. Left ventricular systolic function is normal. The estimated ejection fraction is 65 %. Bubble contrast study negative for right to left interatrial shunt. Ordering Physician: Bolivar Suarez Referring Physician: Lance Daley Performed By: Alexandru Robles RCS X-Ray 05/17/22 12:30 IMPRESSION: The tip of the nasogastric tube is in the body of the stomach. Electronically Signed: Alton Gonzales MD at 13:09 EDT , Rhythm Strip Rhythm Strip: In and out of sinus rhythm Physical Exam Narrative Patient does not really open her eyes or follow commands for me. Patient spontaneously moves her right upper extremity, no movement of bilateral lower extremity and left upper extremity. NG in place tube feeds at 10 cc an hour, NG in place Cardio Rate: tachycardic GI soft to palpation GI Narrative: Mild abdominal distention, incisions healing well clean dry and intact with Steri-Strips, no hernia in the left groin. Assessment & Plan Assessment/Plan (1) S/P exploratory laparotomy: (2) Recurrent inguinal hernia of left side with obstruction: (3) Septic shock: (4) Aspiration pneumonia: (5) Acute respiratory failure with hypoxia: (6) Acute hypokalemia: (7) ROSALIE (acute kidney injury): (8) Acute hyponatremia: (9) Acute CVA (cerebrovascular accident): PLAN: Plan Pt mamadou 10 cc/hr, no BM. will likely need PEG will d/w sister. Await BF before advancing TF. Acute CVA- pt may only intermittently squeeze right hand and may open eyes to command, PT/OT WBC 24 from 19, continue IV abx-sandra/eleno Wayne M.D. Pager: [phone] [facility] [address] [place] [address], [facility]patient [facility], [address] [place] [address] Office: [phone]
[2022-05-18] MEDS: 0.9% Saline Lock 10 ML Syringe IV ×3 (08:04→21:07)
[2022-05-18] MEDS: dexAMETHasone 4 MG/ML Vial IV (08:40)
[2022-05-18 08:55] LABS: Pathologist Review Reviewed
[2022-05-18 09:00] LABS: Pathologist Review Reviewed
[2022-05-18 09:14] LABS: Pathologist Review Reviewed
[2022-05-18 09:14] LABS: Anion Gap 7 (5-15); BUN 30 mg/dL (7-18); BUN/Creat Ratio 41.3 RATIO (10-20); Calcium,Total 8.4 mg/dL (8.5-10.1); Chloride 110 mmol/L (98-107); Creatinine, Serum 0.73 mg/dL (0.55-1.02); EST Glomerular Filtration Rate 87 mL/min (>60); Est Glom Filt Rate - Afr Amer 106 mL/min (>60); Estimated Creatinine Clearance 63.12 ml/min; Glucose 143 mg/dL (74-106); Potassium 3.2 mmol/L (3.5-5.1); Sodium Level 143 mmol/L (136-145)
[2022-05-18 09:20] LABS: Phosphorus 1.4 mg/dL (2.5-4.9)
[2022-05-18] MEDS: Magnesium Sulfate 4gm/100mL 4 GM/100 ML IV.SOLN. IV (10:26)
--- NOTE | 2022-05-18 10:26 | PCM.PN.INT ---
Assessment & Plan Assessment/Plan (1) Acute respiratory failure with hypoxia: PLAN: Plan RECOMMENDATIONS: 1. PT/OT to work with the patient. 2. Aggressive bronchopulmonary hygiene and aspiration precautions. 3. Speech therapy to work with the patient. 4. Nutritional support via tube feeding as tolerated. 5. Continue DVT prophylaxis. 6. Will sign off from a critical care perspective. Please call with any additional questions. IMPRESSIONS: 1. Acute hypoxemic respiratory failure secondary to ARDS due to aspiration pneumonia Resolved. The patient was ultimately able to be extubated on May 16 and is doing well from a respiratory perspective on room air. Plan to continue bronchopulmonary hygiene maneuvers along with aspiration precautions. The patient will be continued on empiric antimicrobials to complete a 7-day treatment course. 2. Acute CVA MRI brain demonstrated large regions of restricted diffusion in the bilateral posterior cerebral hemispheres, concerning for acute infarction. The exact etiology for the patient's CVA is not entirely clear. However, I do suspect a multifactorial etiology, including atrial fibrillation with RVR, hypotension and hypoxemia. The patient has significant neurologic deficits. It is unclear how much she will be able to engage in physical therapy. 3. Atrial fibrillation with rapid ventricular response Resolved. The patient is currently in sinus rhythm. Therefore, we will plan to discontinue Cardizem. We will continue to monitor the patient clinically. 4. Small bowel obstruction status post resection and anastomoses Continue routine postoperative care per general surgery recommendations. This note was generated with [employer] dictation software. It may contain incorrect words, spelling, and punctuation that were not noted in checking the note before signing. Subjective Subjective The patient was seen and examined at the bedside this morning. Events from the last 24 hours have been reviewed. The patient is currently afebrile, hemodynamically stable and maintaining appropriate oxygen saturations on 2 L/min via nasal cannula. The patient is currently tolerating low rate tube feeds. White count remains elevated at 24,000. Potassium is low at 3.2. Neurologically, the patient remains unchanged from previous. Objective Data Objective Data The patient's most recent lab work, culture data and imaging studies have all been personally reviewed. Surface echocardiogram demonstrated normal LV size and function with an ejection fraction of 65%. Vital Signs: Vital Signs Temp Pulse Resp BP Pulse Ox O2 Del Method O2 Flow Rate 98.2 F 112 H 18 158/101 H 96 Nasal Cannula 2 05/18/22 09:26 05/18/22 09:26 05/18/22 09:26 05/18/22 09:26 05/18/22 09:26 05/18/22 09:26 05/18/22 09:26 FiO2 35 05/16/22 08:00 Oxygen Flow Rate (L/min) 2 Oxygen Delivery Method Nasal Cannula Weight: 104 lb 15.04 oz Body Mass Index (BMI) 19.3 Intake & Output: Intake and Output for Last 24 Hours 05/16/22 05/17/22 05/18/22 23:59 23:59 23:59 Intake Total 3999.38 / 4004.38 2719.50 / 2719.50 1525 / 1525 Output Total 4250 / 5450 4350 / 4690 540 / 540 Balance -250.62 / -1445.62 -1630.50 / -1970.50 985 / 985 Lab / Micro Data Attestation: I reviewed the patient's lab results. Result Diagrams: 05/18/22 05:01 05/18/22 05:01 Labs: Laboratory Results - last 24 hr 05/14/22 05:25: Mycoplasma pneumon IgG < 100, Mycoplasma pneumon IgM < 770 05/15/22 03:30: Diff Path Review Reviewed 05/16/22 03:47: Diff Path Review Reviewed 05/17/22 03:57: Diff Path Review Reviewed 05/17/22 12:02: POC Glucose 178 H 05/17/22 18:07: POC Glucose 197 H 05/18/22 01:41: POC Glucose 151 H 05/18/22 05:01: WBC 24.4 H, RBC 3.81 L, Hgb 11.8 L, Hct 34.9 L, MCV 91.6, MCH 31.0, MCHC 33.8, RDW Std Deviation 47.8 H, RDW Coeff of Audrey 14.2, Plt Count 183, MPV 10.5, Neut % (Auto) Not Reportable, Absolute Neuts (auto) 19.5 H, Absolute Lymphs (auto) 3.42, Total Counted 100, Neutrophils % (Manual) 78 H, Band Neutrophils % 2, Lymphocytes % (Manual) 14 L, Monocytes % (Manual) 7, Myelocytes % 3 H, Diff Path Review May , Platelet Estimate ADEQUATE, RBC Morphology NORM C+C 05/18/22 05:01: Magnesium 1.4 L 05/18/22 05:01: Sodium 143, Potassium 3.2 L, Chloride 110 H, Carbon Dioxide 26.0, Anion Gap 7, BUN 30 H, Creatinine 0.73, Estim Creat Clear Calc 63.12, Est GFR (MDRD) Af Amer 106, Est GFR (MDRD) Non-Af 87, BUN/Creatinine Ratio 41.3 H, Glucose 143 H, Calcium 8.4 L 05/18/22 05:01: Phosphorus 1.4 L 05/18/22 06:54: POC Glucose 133 H Micro: Microbiology 05/14/22 05:55 Blood Culture (Wb) - Left Forearm Blood Culture - Preliminary Presumptive C albicans 05/12/22 22:50 Blood Culture (Wb) - Chest Blood Culture - Final No growth in 5 days. 05/12/22 22:29 Blood Culture (Wb) - Right Wrist Blood Culture - Final No growth in 5 days. 05/14/22 05:35 Blood Culture (Wb) - Right Forearm Blood Culture - Preliminary No growth in 48 hours. 05/14/22 11:30 Urine Catheter - Isbell Urine Culture - Final Culture exhibits no growth. 05/13/22 09:30 Sputum, Induced/Lukens Gram Stain - Final 05/13/22 09:30 Sputum, Induced/Lukens Respiratory Culture - Final Presumptive C albicans 05/12/22 22:30 Urine, Catheterized Urine Culture - Final Culture exhibits no growth. 05/13/22 00:46 Urine Catheter - Catheter Legionella Antigen - Final 05/13/22 00:46 Urine Catheter - Catheter Streptococcus pneumoniae Antigen (M - Final 05/12/22 22:30 Nasal Secretion SARS-CoV-2 & FLU Antigen (Rapid) - Final ABG Data ABG results: ABG 05/16/22 07:29 Specimen Type MEDHAT Sample Site L Radial VBG pH 7.36 VBG pO2 58 H VBG HCO3 21 L VBG Total CO2 22 L VBG O2 Sat (Calc) 89 H VBG Base Excess -5 L POC Mix VBG pCO2 Pt Tmp 37.0 L O2 Delivery Device Adult Vent POC PEEP 8 POC Pressure Suppt 5 Radiography Diagnostic Testing: Radiology Impression Echocardiogram 05/16/22 12:50 Interpretation Summary Normal LV size. Left ventricular systolic function is normal. The estimated ejection fraction is 65 %. Bubble contrast study negative for right to left interatrial shunt. Ordering Physician: Bolivar Suarez Referring Physician: Lance Daley Performed By: Alexandru Robles RCS X-Ray 05/17/22 12:30 IMPRESSION: The tip of the nasogastric tube is in the body of the stomach. Electronically Signed: Alton Gonzales MD at 13:09 EDT , Rhythm Strip Rhythm Strip: In and out of sinus rhythm Physical Exam Const Constitutional Narrative: Minimally responsive to verbal and tactile stimulation. HEENT normocephalic and head/scalp atraumatic HEENT Narrative: Nasogastric tube in place. Eyes PERRL Eyes Narrative: Will not voluntarily open eyes. Neck supple General: trachea midline Chest inspection of chest normal Resp normal respiratory effort Resp Narrative: Poor inspiratory effort. Auscultation: diminished lung sounds Cardio regular rate, S1 normal heart sound and S2 normal heart sound Cardio Narrative: Sinus rhythm on telemetry. GI normal to inspection, nondistended, normoactive bowel sounds Extremity no clubbing, cyanosis or edema Skin no rashes or lesions noted Neuro Neuro Narrative: The patient will not voluntarily open her eyes or talk. There has been some voluntary movement in her right upper extremity. Psych Mood & Affect: flat affect Charges/Coding Visit Charges Inpatient E&M: 96488 Subs Hosp L2
--- NOTE | 2022-05-18 10:40 | PN_ITS ---
Subjective Subjective Patient seen and examined. She remains lethargic. She is on 2 L of oxygen is mildly tachycardic today with heart rate of 112. Unable to do review of systems due to her lethargy. Objective Data Objective Data Vital Signs: Vital Signs Temp Pulse Resp BP Pulse Ox O2 Del Method O2 Flow Rate 98.2 F 112 H 18 158/101 H 96 Nasal Cannula 2 05/18/22 09:26 05/18/22 09:26 05/18/22 09:26 05/18/22 09:26 05/18/22 09:26 05/18/22 09:26 05/18/22 09:26 FiO2 35 05/16/22 08:00 Oxygen Flow Rate (L/min) 2 Oxygen Delivery Method Nasal Cannula Weight: 104 lb 15.04 oz Body Mass Index (BMI) 19.3 Intake & Output: Intake and Output for Last 24 Hours 05/16/22 05/17/22 05/18/22 23:59 23:59 23:59 Intake Total 3999.38 / 4004.38 2719.50 / 2719.50 1525 / 1525 Output Total 4250 / 5450 4350 / 4690 540 / 540 Balance -250.62 / -1445.62 -1630.50 / -1970.50 985 / 985 Lab / Micro Data Result Diagrams: 05/18/22 05:01 05/18/22 05:01 Labs: Laboratory Results - last 24 hr 05/14/22 05:25: Mycoplasma pneumon IgG < 100, Mycoplasma pneumon IgM < 770 05/15/22 03:30: Diff Path Review Reviewed 05/16/22 03:47: Diff Path Review Reviewed 05/17/22 03:57: Diff Path Review Reviewed 05/17/22 12:02: POC Glucose 178 H 05/17/22 18:07: POC Glucose 197 H 05/18/22 01:41: POC Glucose 151 H 05/18/22 05:01: WBC 24.4 H, RBC 3.81 L, Hgb 11.8 L, Hct 34.9 L, MCV 91.6, MCH 31.0, MCHC 33.8, RDW Std Deviation 47.8 H, RDW Coeff of Audrey 14.2, Plt Count 183, MPV 10.5, Neut % (Auto) Not Reportable, Absolute Neuts (auto) 19.5 H, Absolute Lymphs (auto) 3.42, Total Counted 100, Neutrophils % (Manual) 78 H, Band Neutrophils % 2, Lymphocytes % (Manual) 14 L, Monocytes % (Manual) 7, Myelocytes % 3 H, Diff Path Review June, Platelet Estimate ADEQUATE, RBC Morphology NORM C+C 05/18/22 05:01: Magnesium 1.4 L 05/18/22 05:01: Sodium 143, Potassium 3.2 L, Chloride 110 H, Carbon Dioxide 26.0, Anion Gap 7, BUN 30 H, Creatinine 0.73, Estim Creat Clear Calc 63.12, Est GFR (MDRD) Af Amer 106, Est GFR (MDRD) Non-Af 87, BUN/Creatinine Ratio 41.3 H, Glucose 143 H, Calcium 8.4 L 05/18/22 05:01: Phosphorus 1.4 L 05/18/22 06:54: POC Glucose 133 H Micro: Microbiology 05/14/22 05:55 Blood Culture (Wb) - Left Forearm Blood Culture - Preliminary Presumptive C albicans 05/12/22 22:50 Blood Culture (Wb) - Chest Blood Culture - Final No growth in 5 days. 05/12/22 22:29 Blood Culture (Wb) - Right Wrist Blood Culture - Final No growth in 5 days. 05/14/22 05:35 Blood Culture (Wb) - Right Forearm Blood Culture - Preliminary No growth in 48 hours. 05/14/22 11:30 Urine Catheter - Isbell Urine Culture - Final Culture exhibits no growth. 05/13/22 09:30 Sputum, Induced/Lukens Gram Stain - Final 05/13/22 09:30 Sputum, Induced/Lukens Respiratory Culture - Final Presumptive C albicans 05/12/22 22:30 Urine, Catheterized Urine Culture - Final Culture exhibits no growth. 05/13/22 00:46 Urine Catheter - Catheter Legionella Antigen - Final 05/13/22 00:46 Urine Catheter - Catheter Streptococcus pneumoniae Antigen (M - Final 05/12/22 22:30 Nasal Secretion SARS-CoV-2 & FLU Antigen (Rapid) - Final Radiography Diagnostic Testing: Radiology Impression Echocardiogram 05/16/22 12:50 Interpretation Summary Normal LV size. Left ventricular systolic function is normal. The estimated ejection fraction is 65 %. Bubble contrast study negative for right to left interatrial shunt. Ordering Physician: Bolivar Suarez Referring Physician: Lance Daley Performed By: Alexandru Robles RCS X-Ray 05/17/22 12:30 IMPRESSION: The tip of the nasogastric tube is in the body of the stomach. Electronically Signed: Alton Gonzales MD at 13:09 EDT , Rhythm Strip Rhythm Strip: In and out of sinus rhythm Physical Exam Const Constitutional Narrative: lethargic, minimally responsive HEENT normocephalic, head/scalp atraumatic and moist oral mucous membranes Eyes PERRL and conjunctivae normal Neck supple and no JVD General: trachea midline Lymph Lymphatic: no lymphadenopathy noted Resp normal respiratory effort, no retractions and no use of accessory muscles Resp Narrative: diminished breath sounds bibasally, no wheezes or crackles. On 2L of oxygen by nasal canula Auscultation: Negative for crackles, rales, rhonchi or wheezes Cardio regular rate, regular rhythm, S1 normal heart sound, S2 normal heart sound and no murmurs Cardio Narrative: tachycardic GI normal to inspection, nondistended, normoactive bowel sounds, soft to palpation, non-tender and non-distended; Negative for hepatosplenomegaly Extremity normal capillary refill, no clubbing, cyanosis or edema and no calf tenderness Skin no rashes or lesions noted General Skin Exam: no breakdown Neuro Neuro Narrative: lethargic, open eyes only in response to voice. spontaneous movement noted of RUE, no spontaneous movement noted of LUE and LLE Sensorium / Orientation: sedated on vent Psych Psych Narrative: lethargic, Assessment & Plan Assessment/Plan (1) Small bowel obstruction: (2) S/P exploratory laparotomy: (3) Acute respiratory failure with hypoxia: (4) ARDS (adult respiratory distress syndrome): (5) Aspiration pneumonia: (6) Septic shock: PLAN: Plan #Acute hypoxic respiratory failure due to aspiration pneumonia and ARDS * extubated and now on room air. * sputum culturs are negative * on IV vancomycin and zosyn * #Acute CVA * patient was noted to have right sided hemiparesis after extubation * CT of the brain showed large areas of abnormal edema in the parietal occipital lobes with smaller regions of abnormal edema in the cerebellum concerning for large acute infarctions versus hepatic encephalopathy. * CTA head and neck showed no evidence of hemodynamic currently significant stenosis * Patient was evaluated by [facility] neurology after stroke alert was ordered. * [facility] telestroke neurologist reviewed imaging and thought patient had bilateral ischemic strokes. Neurologist recommended holding off on anticoagulation for now given the patient has A-fib and to start aspirin. * on high intensity statin * PT OT on board. * MRI of the brain showed large areas of restricted diffusion in the bilateral posterior cerebral hemispheres concerning for large acute infarct and small bilateral cerebellar infarcts as well as small acute lacunar infarct in the bilateral basal ganglia. * 2D echo showed normal left ventricular size with normal left ventricular systolic function and EF of 65% with negative bubble study. * #Afib * heart rate is improving.off cardizem drip * not started on anticoagulation yet due to risk of hemorrhagic transformation from large ischemic stroke * HR is 112 today. * shelli consider starting a beta gagan if HR remains elevated #ROSALIE * resolved. Cr is 0.73 today * #Small bowel obstruction and incarcerated hernia * s/p exploratory laparotomy * general surgery on board. * on tube feeds * management as per general surgery * NG tube in place * #Hypokalemia, hypomagnesemia and hypophosphatemia: will replace aggressively and trend #Hypotension: resolved. DVT prophylais: lovenox Disposition:will likely need placement once medically stable for discharge Charges/Coding Visit Charges Inpatient E&M: 56482 [facility] Hosp L3
[2022-05-18] MEDS: Insulin Lispro 100 UNIT/ML INSULN.PEN SC ×3 (11:33→23:48)
[2022-05-18 11:56] LABS: Bedside Glucose 174 mg/dL (74-106)
[2022-05-18 13:25] LABS: Pathologist Review Reviewed
--- NOTE | 2022-05-18 14:17 | CASEMGMT ---
Addendum entered by Margarita Greenwood 05/18/22 14:29: SASHA sent a referral to [facility]. Margarita RODRIGEZ Original Note: SASHA spoke with patient's sister Britany. Britany said [facility] will still be her first choice. SASHA will work on referral. Margarita RODRIGEZ
[2022-05-18 17:35] LABS: Bedside Glucose 175 mg/dL (74-106)
[2022-05-19] VITALS (9 sets, daily range): BP systolic 119–150; BP diastolic 89–104; PULSE 68–107; RESP 16–24; TEMP 36.4–36.8; O2SAT 78–98; BMI 19.5
[2022-05-19 01:41] LABS: Bedside Glucose 163 mg/dL (74-106)
[2022-05-19 04:59] LABS: Absolute Lymphocyte Count 2.03 X10^3/uL (0.83-4.51); Basophil# 0.06 X10^3/uL; Basophil% 0.3 % (0-1); Eosinophil# 0.02 X10^3/uL; Eosinophils% 0.1 % (0-5); Hematocrit 32.4 % (37-47); Hemoglobin 11.1 g/dL (12.0-15.0); Lymphocyte # 2.03 X10^3/ul (0.83-4.51); Lymphocyte % 10.6 % (19-41); Mean Corp Hgb Conc 34.3 g/dL (32-36); Mean Corpuscular Hgb 31.3 pg (27.0-32.0); Mean Corpuscular Volume 91.3 fL (81-99); Mean Platelet Vol. 10.8 fl (6.2-12.0); Monocyte# 1.29 X10^3/uL; Monocyte% 6.7 % (0-10); NRBC Flagged by Analyzer 0 % (0-5); Neutrophil # 15.01 X10^3/uL (2.7-7.7); Neutrophil % 78.3 % (47-70); Platelet Count 183 K/mm3 (150-450); RBC Distribution Width CV 13.9 % (11.6-14.6); RBC Distribution Width SD 46.7 fl (35.1-43.9); Red Blood Count 3.55 M/mm3 (4.2-5.4); White Blood Count 19.2 K/mm3 (4.4-11.0)
[2022-05-19] MEDS: Insulin Lispro 100 UNIT/ML INSULN.PEN SC (05:14)
[2022-05-19] MEDS: Enoxaparin 40 MG/0.4 ML Syringe SC (05:14)
[2022-05-19 05:28] LABS: Anion Gap 11 (5-15); BUN 24 mg/dL (7-18); BUN/Creat Ratio 35.2 RATIO (10-20); Calcium,Total 7.3 mg/dL (8.5-10.1); Chloride 102 mmol/L (98-107); Creatinine, Serum 0.68 mg/dL (0.55-1.02); EST Glomerular Filtration Rate 94 mL/min (>60); Est Glom Filt Rate - Afr Amer 114 mL/min (>60); Estimated Creatinine Clearance 67.76 ml/min; Glucose 155 mg/dL (74-106); Magnesium 1.9 mg/dL (1.6-2.6); Phosphorus 2.4 mg/dL (2.5-4.9); Potassium 3.1 mmol/L (3.5-5.1); Sodium Level 138 mmol/L (136-145)
[2022-05-19] MEDS: Ipratropium 0.5 MG/2.5 ML SOLUTION INHALATION ×3 (06:47→19:03)
[2022-05-19 06:56] LABS: Bedside Glucose 150 mg/dL (74-106)
[2022-05-19] MEDS: dexAMETHasone 4 MG/ML Vial IV (10:20)
--- NOTE | 2022-05-19 10:59 | PCM.PN.REN ---
Subjective Subjective Following for ROSALIE Patient sitting up in bed, being evaluated by speech therapy. No overnight events. Following simple commands. Objective Data Objective Data Vital Signs: Vital Signs Temp Pulse Resp BP Pulse Ox O2 Del Method O2 Flow Rate 98.2 F 107 H 18 133/92 H 95 Room Air 2 05/19/22 10:15 05/19/22 10:15 05/19/22 10:15 05/19/22 10:15 05/19/22 10:15 05/19/22 10:15 05/18/22 14:00 FiO2 35 05/16/22 08:00 Oxygen Flow Rate (L/min) 2 Oxygen Delivery Method Room Air Weight: 48.1 kg Body Mass Index (BMI) 19.5 Intake & Output: Intake and Output for Last 24 Hours 05/17/22 05/18/22 05/19/22 23:59 23:59 23:59 Intake Total 2719.50 / 2719.50 3489.0033 / 3489.0033 1503.67 / 1503.67 Output Total 4350 / 4690 2440 / 2440 200 / 200 Balance -1630.50 / -1970.50 1049.0033 / 1049.0033 1303.67 / 1303.67 Lab / Micro Data Result Diagrams: 05/19/22 04:03 05/19/22 04:03 Labs: Laboratory Results - last 24 hr 05/16/22 03:47: Ionized Calcium 5.0 05/16/22 15:05: Ionized Calcium 5.1 05/18/22 05:01: Diff Path Review Reviewed 05/18/22 11:32: POC Glucose 174 H 05/18/22 17:16: POC Glucose 175 H 05/18/22 23:44: POC Glucose 163 H 05/19/22 04:03: WBC 19.2 H, RBC 3.55 L, Hgb 11.1 L, Hct 32.4 L, MCV 91.3, MCH 31.3, MCHC 34.3, RDW Std Deviation 46.7 H, RDW Coeff of Audrey 13.9, Plt Count 183, MPV 10.8, Immature Gran % (Auto) 4.000 H, Neut % (Auto) 78.3 H, Lymph % (Auto) 10.6 L, [place] % (Auto) 6.7, Eos % (Auto) 0.1, Baso % (Auto) 0.3, Absolute Neuts (auto) 15.0 H, Absolute Lymphs (auto) 2.03, Nucleated RBC % 0 05/19/22 04:03: Sodium 138, Potassium 3.1 L, Chloride 102, Carbon Dioxide 25.0, Anion Gap 11, BUN 24 H, Creatinine 0.68, Estim Creat Clear Calc 67.76, Est GFR (MDRD) Af Amer 114, Est GFR (MDRD) Non-Af 94, BUN/Creatinine Ratio 35.2 H, Glucose 155 H, Calcium 7.3 L, Phosphorus 2.4 L, Magnesium 1.9 05/19/22 05:13: POC Glucose 150 H Micro: Microbiology 05/14/22 05:35 Blood Culture (Wb) - Right Forearm Blood Culture - Final No growth in 5 days. 05/14/22 05:55 Blood Culture (Wb) - Left Forearm Blood Culture - Preliminary Presumptive C albicans 05/12/22 22:50 Blood Culture (Wb) - Chest Blood Culture - Final No growth in 5 days. 05/12/22 22:29 Blood Culture (Wb) - Right Wrist Blood Culture - Final No growth in 5 days. 05/14/22 11:30 Urine Catheter - [place] Urine Culture - Final Culture exhibits no growth. 05/13/22 09:30 Sputum, Induced/Lukens Gram Stain - Final 05/13/22 09:30 Sputum, Induced/Lukens Respiratory Culture - Final Presumptive C albicans 05/12/22 22:30 Urine, Catheterized Urine Culture - Final Culture exhibits no growth. 05/13/22 00:46 Urine Catheter - Catheter Legionella Antigen - Final 05/13/22 00:46 Urine Catheter - Catheter Streptococcus pneumoniae Antigen (M - Final 05/12/22 22:30 Nasal Secretion SARS-CoV-2 & FLU Antigen (Rapid) - Final Rhythm Strip Rhythm Strip: In and out of sinus rhythm Physical Exam Narrative Resting quietly in bed, no apparent distress, following simple commands LS CTA anteriorly and posteriorly S1 S2 RRR, no murmurs, rubs or gallops abdomen soft no edema to b/l legs or arms indwelling kovacs with clear yellow urine in bag/tubing Assessment & Plan Assessment/Plan (1) ROSALIE (acute kidney injury): (2) Septic shock: (3) S/P exploratory laparotomy: (4) Hypotension: PLAN: Plan This is a 56-year-old female with no known reported past medical history who presented to the emergency room May 13, 2022 with complaints of syncope, lightheadedness, productive green sputum and nausea. Patient was admitted for septic shock from pneumonia, ROSALIE, acute hypoxic respiratory failure and also found to have Strangulated left inguinal hernia status post repair on 05/13/2022. -Nonoliguric, hypovolemic ROSALIE likely secondary to ischemic ATN in setting of sepsis, hypotension, pneumonia, small bowel obstruction and incarcerated hernia status post exploratory laparotomy. Baseline creatinine unknown, labs April 2017 serum creatinine 0.73 mg/dL. Gap in lab work until this admission, on May 12 creatinine 2.10 mg/dL, serum creatinine peaked at 3.15 mg/dL on May 14 and patient has been on IVF since 05/14. Patient extubated now. Noncontrast CT of abdomen and pelvis: No hydronephrosis, no calculi demonstrated. UA negative for RBC, protein 15, specific gravity 1.020. Overall renal function improving and serum creatinine is down to 0.68 mg/dL today. Patient did not require any GEOPHYSICAL LABORATORY CHIEF. Likely patient has normal baseline creatinine. -Replace potassium as already ordered. -Hypernatremia; patient was NPO and is now on D5W. Has NG due to concern for ileus and hopeful to start TF soon. Patient is still NPO but today being evaluated by speech therapy. Sodium peaked 149 but today is at 138. - Acute CVA; evaluated by [facility] neurology. CT of the brain showed large areas of abnormal edema parietal occipital lobes with smaller regions of abnormal edema in the cerebellum concerning for large acute infarctions versus hepatic encephalopathy, CTA head/neck showed no evidence of hemodynamic currently significant stenosis; MRI of the brain showed large areas of restricted diffusion in bilateral posterior cerebral hemispheres concerning for large acute infarct and small bilateral cerebellar infarcts as well as small acute lacunar infarct in the bilateral basal ganglia -Nephrology will sign off. Please reconsult or call with any questions.
--- NOTE | 2022-05-19 11:37 | PCM.PN.SRG ---
Subjective Subjective Patient was alert as patient's brother was in the room patient's brother stated that she did say as well as I love you to him. Patient did say he had a response to a question whether she was hot and then went feel her forehead with her right upper extremity. Patient did squeeze right upper extremity on command. Patient was unable to move the lower extremities or left upper extremity. Patient did have bowel movements last night and this morning tolerating tube feeds at 10 cc an hour Objective Data Objective Data Vital Signs: Vital Signs Temp Pulse Resp BP Pulse Ox O2 Del Method O2 Flow Rate 98.2 F 107 H 18 133/92 H 95 Room Air 2 05/19/22 10:15 05/19/22 10:15 05/19/22 10:15 05/19/22 10:15 05/19/22 10:15 05/19/22 10:15 05/18/22 14:00 FiO2 35 05/16/22 08:00 Oxygen Flow Rate (L/min) 2 Oxygen Delivery Method Room Air Weight: 106 lb 0.677 oz Body Mass Index (BMI) 19.5 Intake & Output: Intake and Output for Last 24 Hours 05/17/22 05/18/22 05/19/22 23:59 23:59 23:59 Intake Total 2719.50 / 2719.50 3489.0033 / 3489.0033 1613.67 / 1613.67 Output Total 4350 / 4690 2440 / 2440 200 / 200 Balance -1630.50 / -1970.50 1049.0033 / 1049.0033 1413.67 / 1413.67 Lab / Micro Data Result Diagrams: 05/19/22 04:03 05/19/22 04:03 Labs: Laboratory Results - last 24 hr 05/16/22 03:47: Ionized Calcium 5.0 05/16/22 15:05: Ionized Calcium 5.1 05/18/22 05:01: Diff Path Review Reviewed 05/18/22 11:32: POC Glucose 174 H 05/18/22 17:16: POC Glucose 175 H 05/18/22 23:44: POC Glucose 163 H 05/19/22 04:03: WBC 19.2 H, RBC 3.55 L, Hgb 11.1 L, Hct 32.4 L, MCV 91.3, MCH 31.3, MCHC 34.3, RDW Std Deviation 46.7 H, RDW Coeff of Audrey 13.9, Plt Count 183, MPV 10.8, Immature Gran % (Auto) 4.000 H, Neut % (Auto) 78.3 H, Lymph % (Auto) 10.6 L, [place] % (Auto) 6.7, Eos % (Auto) 0.1, Baso % (Auto) 0.3, Absolute Neuts (auto) 15.0 H, Absolute Lymphs (auto) 2.03, Nucleated RBC % 0 05/19/22 04:03: Sodium 138, Potassium 3.1 L, Chloride 102, Carbon Dioxide 25.0, Anion Gap 11, BUN 24 H, Creatinine 0.68, Estim Creat Clear Calc 67.76, Est GFR (MDRD) Af Amer 114, Est GFR (MDRD) Non-Af 94, BUN/Creatinine Ratio 35.2 H, Glucose 155 H, Calcium 7.3 L, Phosphorus 2.4 L, Magnesium 1.9 05/19/22 05:13: POC Glucose 150 H Micro: Microbiology 05/14/22 05:35 Blood Culture (Wb) - Right Forearm Blood Culture - Final No growth in 5 days. 05/14/22 05:55 Blood Culture (Wb) - Left Forearm Blood Culture - Preliminary Presumptive C albicans 05/12/22 22:50 Blood Culture (Wb) - Chest Blood Culture - Final No growth in 5 days. 05/12/22 22:29 Blood Culture (Wb) - Right Wrist Blood Culture - Final No growth in 5 days. 05/14/22 11:30 Urine Catheter - Isbell Urine Culture - Final Culture exhibits no growth. 05/13/22 09:30 Sputum, Induced/Lukens Gram Stain - Final 05/13/22 09:30 Sputum, Induced/Lukens Respiratory Culture - Final Presumptive C albicans 05/12/22 22:30 Urine, Catheterized Urine Culture - Final Culture exhibits no growth. 05/13/22 00:46 Urine Catheter - Catheter Legionella Antigen - Final 05/13/22 00:46 Urine Catheter - Catheter Streptococcus pneumoniae Antigen (M - Final 05/12/22 22:30 Nasal Secretion SARS-CoV-2 & FLU Antigen (Rapid) - Final Rhythm Strip Rhythm Strip: In and out of sinus rhythm Physical Exam Narrative Most alert I have seen patient. Patient's eyes are open did respond to question with yeah verbally as well as squeeze my hand with her right hand. Patient is unable to move lower extremities or left upper extremity. Resp normal respiratory effort Cardio Rate: tachycardic GI soft to palpation GI Narrative: Mild abdominal distention, incisions healing well clean dry and intact with Steri-Strips, no hernia in the left groin. Assessment & Plan Assessment/Plan (1) S/P exploratory laparotomy: (2) Recurrent inguinal hernia of left side with obstruction: (3) Septic shock: (4) Aspiration pneumonia: (5) Acute respiratory failure with hypoxia: (6) Acute hypokalemia: (7) ROSALIE (acute kidney injury): (8) Acute hyponatremia: (9) Acute CVA (cerebrovascular accident): PLAN: Plan Pt mamadou 10 cc/hr, patient is having bowel movements will increase tube feeds to goal starting at 20 cc an hour. Patient will likely need PEG will wait for consistent neurological exam prior to be sedating?did discuss with patient's brother who is visiting in the room. Did discuss with social work that per the brother there is no POA and there are 2 sisters and 2 brothers. Acute CVA-patient was most alert I have seen however she did go back to lethargic after short while, PT/OT WBC 19, continue IV abx-zosyn/vanco/fluconazole Hypokalemia and hypophosphatemia?replaced Lovenox/PPI Tahmina Wayne M.D. Pager: [phone] [facility] [address] [place] [address], Outpatient [place], [address] [place] [address] Office: [phone]
--- NOTE | 2022-05-19 11:53 | PN_ITS ---
Subjective Subjective Patient seen and examined. Patient remains very lethargic and barely opens her eyes in response to voice. She stopped answering many questions. Unable to do review of systems. She has other wires remain for every stable hemodynamically Objective Data Objective Data Vital Signs: Vital Signs Temp Pulse Resp BP Pulse Ox O2 Del Method O2 Flow Rate 98.2 F 107 H 18 133/92 H 95 Room Air 2 05/19/22 10:15 05/19/22 10:15 05/19/22 10:15 05/19/22 10:15 05/19/22 10:15 05/19/22 10:15 05/18/22 14:00 FiO2 35 05/16/22 08:00 Oxygen Flow Rate (L/min) 2 Oxygen Delivery Method Room Air Weight: 106 lb 0.677 oz Body Mass Index (BMI) 19.5 Intake & Output: Intake and Output for Last 24 Hours 05/17/22 05/18/22 05/19/22 23:59 23:59 23:59 Intake Total 2719.50 / 2719.50 3489.0033 / 3489.0033 1613.67 / 1613.67 Output Total 4350 / 4690 2440 / 2440 200 / 200 Balance -1630.50 / -1970.50 1049.0033 / 1049.0033 1413.67 / 1413.67 Lab / Micro Data Result Diagrams: 05/19/22 04:03 05/19/22 04:03 Labs: Laboratory Results - last 24 hr 05/16/22 03:47: Ionized Calcium 5.0 05/16/22 15:05: Ionized Calcium 5.1 05/18/22 05:01: Diff Path Review Reviewed 05/18/22 11:32: POC Glucose 174 H 05/18/22 17:16: POC Glucose 175 H 05/18/22 23:44: POC Glucose 163 H 05/19/22 04:03: WBC 19.2 H, RBC 3.55 L, Hgb 11.1 L, Hct 32.4 L, MCV 91.3, MCH 31.3, MCHC 34.3, RDW Std Deviation 46.7 H, RDW Coeff of Audrey 13.9, Plt Count 183, MPV 10.8, Immature Gran % (Auto) 4.000 H, Neut % (Auto) 78.3 H, Lymph % (Auto) 10.6 L, Mccracken % (Auto) 6.7, Eos % (Auto) 0.1, Baso % (Auto) 0.3, Absolute Neuts (auto) 15.0 H, Absolute Lymphs (auto) 2.03, Nucleated RBC % 0 05/19/22 04:03: Sodium 138, Potassium 3.1 L, Chloride 102, Carbon Dioxide 25.0, Anion Gap 11, BUN 24 H, Creatinine 0.68, Estim Creat Clear Calc 67.76, Est GFR (MDRD) Af Amer 114, Est GFR (MDRD) Non-Af 94, BUN/Creatinine Ratio 35.2 H, Gluc ose 155 H, Calcium 7.3 L, Phosphorus 2.4 L, Magnesium 1.9 05/19/22 05:13: POC Glucose 150 H Micro: Microbiology 05/14/22 05:35 Blood Culture (Wb) - Right Forearm Blood Culture - Final No growth in 5 days. 05/14/22 05:55 Blood Culture (Wb) - Left Forearm Blood Culture - Preliminary Presumptive C albicans 05/12/22 22:50 Blood Culture (Wb) - Chest Blood Culture - Final No growth in 5 days. 05/12/22 22:29 Blood Culture (Wb) - Right Wrist Blood Culture - Final No growth in 5 days. 05/14/22 11:30 Urine Catheter - Isbell Urine Culture - Final Culture exhibits no growth. 05/13/22 09:30 Sputum, Induced/Lukens Gram Stain - Final 05/13/22 09:30 Sputum, Induced/Lukens Respiratory Culture - Final Presumptive C albicans 05/12/22 22:30 Urine, Catheterized Urine Culture - Final Culture exhibits no growth. 05/13/22 00:46 Urine Catheter - Catheter Legionella Antigen - Final 05/13/22 00:46 Urine Catheter - Catheter Streptococcus pneumoniae Antigen (M - Final 05/12/22 22:30 Nasal Secretion SARS-CoV-2 & FLU Antigen (Rapid) - Final Rhythm Strip Rhythm Strip: In and out of sinus rhythm Physical Exam Const Constitutional Narrative: lethargic, minimally responsive HEENT normocephalic, head/scalp atraumatic and moist oral mucous membranes Eyes PERRL and conjunctivae normal Neck supple and no JVD General: trachea midline Lymph Lymphatic: no lymphadenopathy noted Resp no retractions and no use of accessory muscles Resp Narrative: diminished breath sounds bibasally, no wheezes or crackles. On 2L of oxygen by nasal canula Auscultation: Negative for crackles, rales, rhonchi or wheezes Cardio regular rhythm, S1 normal heart sound, S2 normal heart sound and no murmurs Cardio Narrative: tachycardic GI normal to inspection, nondistended, normoactive bowel sounds, soft to palpation, non-tender and non-distended; Negative for hepatosplenomegaly Extremity normal capillary refill, no clubbing, cyanosis or edema and no calf tenderness Skin no rashes or lesions noted General Skin Exam: no breakdown Neuro Neuro Narrative: lethargic, open eyes only in response to voice. spontaneous movement noted of RUE, no spontaneous movement noted of LUE and LLE Psych Psych Narrative: lethargic, Assessment & Plan Assessment/Plan (1) Small bowel obstruction: (2) S/P exploratory laparotomy: (3) Acute respiratory failure with hypoxia: (4) ARDS (adult respiratory distress syndrome): (5) Aspiration pneumonia: (6) Septic shock: PLAN: Plan #Acute hypoxic respiratory failure due to aspiration pneumonia and ARDS * extubated and now on room air. * sputum culturs are negative * on IV vancomycin and zosyn * #Acute CVA * patient was noted to have right sided hemiparesis after extubation * CT of the brain showed large areas of abnormal edema in the parietal occipital lobes with smaller regions of abnormal edema in the cerebellum concerning for large acute infarctions versus hepatic encephalopathy. * CTA head and neck showed no evidence of hemodynamic currently significant stenosis * Patient was evaluated by [facility] neurology after stroke alert was ordered. * [facility] telestroke neurologist reviewed imaging and thought patient had bilateral ischemic strokes. Neurologist recommended holding off on anticoagulation for now given the patient has A-fib and to start aspirin. * on high intensity statin * PT OT on board. * MRI of the brain showed large areas of restricted diffusion in the bilateral p osterior cerebral hemispheres concerning for large acute infarct and small bilateral cerebellar infarcts as well as small acute lacunar infarct in the bilateral basal ganglia. * 2D echo showed normal left ventricular size with normal left ventricular systolic function and EF of 65% with negative bubble study. * #Candidemia: blood culture positive for resumptive rocky albicans. ID consulted. #Afib * heart rate is improving.off cardizem drip * not started on anticoagulation yet due to risk of hemorrhagic transformation from large ischemic stroke * HR is 107 today. * will start on metoprolol 12.5 bid via NG tube * shelli consider starting a beta gagan if HR remains elevated #ROSALIE * resolved. * #Small bowel obstruction and incarcerated hernia * s/p exploratory laparotomy * general surgery on board. * on tube feeds * management as per general surgery * NG tube in place * #Hypokalemia, hypomagnesemia and hypophosphatemia: will replace aggressively and trend #Hypotension: resolved. DVT prophylais: lovenox Disposition:will need placement Charges/Coding Visit Charges Inpatient E&M: 65473 Subs Hosp L2
--- NOTE | 2022-05-19 13:36 | CON.PCM.ID_ITS ---
Assessment & Plan Assessment/Plan (1) Acute CVA (cerebrovascular accident): (2) ROSALIE (acute kidney injury): (3) Candidemia: PLAN: 1 of 2 bcx from 05/14/22 with c.albicans, presumptive ID. TTE showed no veg. Will start high dose fluconazole now, 800mg once, then 400mg daily. Repeat bcx tomorrow. Recommend MIKO if possible. Will follow, thank you HPI Consult Data Date of Consult: 05/19/22 HPI Narrative Reason for Consultation: candidemia HPI Narrative: GONZALES HOBSON, is a 56 F who presented 05/12 with nausea, cough, lightheadedness, syncope, and found down at home. Had L groin hernia surgery 04/30/22. Given azithro/ceftriaxone for possible pneumonia/aspiration. Taken to OR 05/13/[address] Wayne for recurrent incarcerated L inguinal hernia with SBO. Dx with septic shock, kept on vent, admitted to icu. Abx changed to vanc/zosyn 05/14. Neph consulted for ROSALIE. Extubated 05/16, found to have L hemiparesis, CT showed large stroke. Now bcx from 05/14 showing c. albicans-like yeast. Pt unable to provide history or ROS due to mental status. [facility] Medical History Altered mental status Atrial fibrillation with rapid ventricular response Carpal tunnel syndrome Heart murmur Heartburn History of irregular heartbeat History of stress test Leg cramps On mechanically assisted ventilation Post-menopausal Reducible left inguinal hernia Seasonal allergies Smoker Wears glasses Home Medications biotin 10,000 mcg chewable tablet (Hair, Skin and Nails (biotin)) 10,000 mcg PO DAILY 03/29/22 [History Last Taken Unknown] calcium 600 mg capsule 600 mg PO DAILY 03/29/22 [History Last Taken Unknown] cholecalciferol (vitamin D3) 25 mcg (1,000 unit) chewable tablet (Vitamin D3) 25 mcg PO DAILY 03/29/22 [History Last Taken Unknown] multivitamin 1 cap PO DAILY 03/29/22 [History Last Taken Unknown] Allergy/AdvReac Type Severity Reaction Status Date / Time No Known Allergies Allergy Unverified 04/30/22 13:32 Family History Mother Myocardial infarction, Onset Age: 40 Anxiety and depression Father CVA (cerebral vascular accident) Sister Thyroid disorder Aunt Breast cancer Surgical History (Updated 05/13/22 @ 13:[address] Tahmina Wayne MD) History of appendectomy Hx of colonoscopy S/P left inguinal hernia repair Social History Smoking Status: Current every day smoker tobacco type: cigarettes Tobacco: How many years used: 20 alcohol intake: never substance use type: does not use what type of physical activity do you participate in: walking frequency: 1-2 times per week Physical Exam Const no apparent distress General Appearance: lethargic HEENT normocephalic and head/scalp atraumatic Eyes PERRL Neck supple and No nodes Resp Auscultation: diminished lung sounds Cardio regular rate and regular rhythm GI soft to palpation, non-tender and non-distended Extremity General Extremity: Negative for edema Skin no rashes or lesions noted Skin Narrative: no splinter hemorrhages on hands or feet Neuro Neuro Narrative: L sided weakness Lab / Micro Data Attestation: I reviewed the patient's lab results. Result Diagrams: 05/19/22 04:03 05/19/22 04:03 Labs: Laboratory Results - last 24 hr 05/16/22 03:47: Ionized Calcium 5.0 05/16/22 15:05: Ionized Calcium 5.1 05/18/22 17:16: POC Glucose 175 H 05/18/22 23:44: POC Glucose 163 H 05/19/22 04:03: WBC 19.2 H, RBC 3.55 L, Hgb 11.1 L, Hct 32.4 L, MCV 91.3, MCH 31.3, MCHC 34.3, RDW Std Deviation 46.7 H, RDW Coeff of Audrey 13.9, Plt Count 183, MPV 10.8, Immature Gran % (Auto) 4.000 H, Neut % (Auto) 78.3 H, Lymph % (Auto) 10.6 L, Reagan % (Auto) 6.7, Eos % (Auto) 0.1, Baso % (Auto) 0.3, Absolute Neuts (auto) 15.0 H, Absolute Lymphs (auto) 2.03, Nucleated RBC % 0 05/19/22 04:03: Sodium 138, Potassium 3.1 L, Chloride 102, Carbon Dioxide 25.0, Anion Gap 11, BUN 24 H, Creatinine 0.68, Estim Creat Clear Calc 67.76, Est GFR (MDRD) Af Amer 114, Est GFR (MDRD) Non-Af 94, BUN/Creatinine Ratio 35.2 H, Glucose 155 H, Calcium 7.3 L, Phosphorus 2.4 L, Magnesium 1.9 05/19/22 05:13: POC Glucose 150 H Micro: Microbiology 05/14/22 05:35 Blood Culture (Wb) - Right Forearm Blood Culture - Final No growth in 5 days. 05/14/22 05:55 Blood Culture (Wb) - Left Forearm Blood Culture - Preliminary Presumptive C albicans Rhythm Strip Rhythm Strip: In and out of sinus rhythm
[2022-05-19 14:15] LABS: Bedside Glucose 134 mg/dL (74-106)
--- NOTE | 2022-05-19 14:26 | CASEMGMT ---
Physician notified SW that patient's brother was visiting today. Physician also indicated patient is becoming more responsive. Patient is not and does not have any children so her siblings will be the decision makers while patient is confused. SW did go to patient's room. SW introduced self and role at [facility]. Patient was awake and did respond to SW somewhat. However, when SW asked patient if she was in the hospital she shook her head no. SW did communicate with [facility] and they are unsure they will be able to take patient on pending Medicaid. Margarita Greenwood [employer] SALES AGENT [place]IA
[2022-05-19] MEDS: Vital AF 1.2 Cal Liquid 1,000 ML 20 ML GT (15:57)
[2022-05-19 18:15] LABS: Bedside Glucose 147 mg/dL (74-106)
[2022-05-19] MEDS: Metoprolol Tartrate 25 MG Tablet 12.5 MG NG (21:55)
[2022-05-19 23:05] LABS: Bedside Glucose 143 mg/dL (74-106)
[2022-05-20] VITALS (10 sets, daily range): BP systolic 127–147; BP diastolic 84–97; PULSE 65–108; RESP 16–20; TEMP 36.4–36.7; O2SAT 94–100; BMI 19.4
[2022-05-20] MEDS: Enoxaparin 40 MG/0.4 ML Syringe SC (05:35)
[2022-05-20] MEDS: Insulin Lispro 100 UNIT/ML INSULN.PEN SC ×4 (05:39→23:51)
[2022-05-20 05:46] LABS: Absolute Lymphocyte Count 1.78 X10^3/uL (0.83-4.51); Absolute Neutrophil Count 18.8 X10^3/uL (2.0-7.7); Basophil# 0.08 X10^3/uL; Basophil% 0.4 % (0-1); Eosinophil# 0.03 X10^3/uL; Eosinophils% 0.1 % (0-5); Hematocrit 32.1 % (37-47); Hemoglobin 10.7 g/dL (12.0-15.0); Lymphocyte # 1.78 X10^3/ul (0.83-4.51); Mean Corp Hgb Conc 33.3 g/dL (32-36); Mean Corpuscular Hgb 30.6 pg (27.0-32.0); Mean Corpuscular Volume 91.7 fL (81-99); Monocyte# 1.01 X10^3/uL; Monocyte% 4.5 % (0-10); NRBC Flagged by Analyzer 0 % (0-5); Neutrophil # 18.79 X10^3/uL (2.7-7.7); Neutrophil % 84.3 % (47-70); Platelet Count 224 K/mm3 (150-450); RBC Distribution Width CV 13.7 % (11.6-14.6); RBC Distribution Width SD 45.9 fl (35.1-43.9); White Blood Count 22.3 K/mm3 (4.4-11.0)
[2022-05-20 06:06] LABS: Bedside Glucose 156 mg/dL (74-106)
[2022-05-20 06:19] LABS: AST(SGOT) 41 U/L (15-37); Alanine Aminotransfer ALT/SGPT 122 U/L (13-56); Albumin, Serum 1.8 g/dL (3.2-5.0); Alkaline Phosphatase 184 U/L (45-117); Anion Gap 10 (5-15); BUN 18 mg/dL (7-18); BUN/Creat Ratio 30.6 RATIO (10-20); Bilirubin, Direct 0.17 mg/dL (0.00-0.30); Calcium,Total 7.3 mg/dL (8.5-10.1); Chloride 102 mmol/L (98-107); Creatinine, Serum 0.59 mg/dL (0.55-1.02); EST Glomerular Filtration Rate 111 mL/min (>60); Est Glom Filt Rate - Afr Amer 135 mL/min (>60); Estimated Creatinine Clearance 78.43 ml/min; Globulin 3.2 g/dL (2.2-4.2); Glucose 158 mg/dL (74-106); Magnesium 1.4 mg/dL (1.6-2.6); Phosphorus 2.4 mg/dL (2.5-4.9); Potassium 2.9 mmol/L (3.5-5.1); Sodium Level 136 mmol/L (136-145)
[2022-05-20 06:24] LABS: Vancomycin, Trough Level 6.3 ug/mL (5.0-15.0)
--- NOTE | 2022-05-20 06:34 | PCM.RX.CS ---
Consult Pharmacy has been consulted to manage selected antiobiotic: Vancomycin Type of Consult: Follow-up Labs: Sodium 136 mmol/L (136-145) 05/20/22 05:17 Potassium 2.9 mmol/L (3.5-5.1) L 05/20/22 05:17 Chloride 102 mmol/L (98-107) 05/20/22 05:17 Carbon Dioxide 24.0 mmol/L (21.0-32.0) 05/20/22 05:17 Anion Gap 10 (5-15) 05/20/22 05:17 BUN 18 mg/dL (7-18) 05/20/22 05:17 Creatinine 0.59 mg/dL (0.55-1.02) 05/20/22 05:17 Est GFR (MDRD) Af Amer 135 mL/min (>60) 05/20/22 05:17 Est GFR (MDRD) Non-Af 111 mL/min (>60) 05/20/22 05:17 BUN/Creatinine Ratio 30.6 RATIO (10-20) H 05/20/22 05:17 Glucose 158 mg/dL (74-106) H 05/20/22 05:17 Vancomycin Trough 6.3 ug/mL (5.0-15.0) 05/20/22 05:17 Random Vancomycin 10.8 ug/mL (0.0-15.0) 05/15/22 05:50 Microbiology: Microbiology 05/14/22 05:55 Blood Culture (Wb) - Left Forearm Blood Culture - Preliminary Presumptive C albicans 05/14/22 05:35 Blood Culture (Wb) - Right Forearm Blood Culture - Final No growth in 5 days. 05/12/22 22:50 Blood Culture (Wb) - Chest Blood Culture - Final No growth in 5 days. 05/12/22 22:29 Blood Culture (Wb) - Right Wrist Blood Culture - Final No growth in 5 days. 05/14/22 11:30 Urine Catheter - Isbell Urine Culture - Final Culture exhibits no growth. 05/13/22 09:30 Sputum, Induced/Lukens Gram Stain - Final 05/13/22 09:30 Sputum, Induced/Lukens Respiratory Culture - Final Presumptive C albicans 05/12/22 22:30 Urine, Catheterized Urine Culture - Final Culture exhibits no growth. 05/13/22 00:46 Urine Catheter - Catheter Legionella Antigen - Final 05/13/22 00:46 Urine Catheter - Catheter Streptococcus pneumoniae Antigen (M - Final 05/12/22 22:30 Nasal Secretion SARS-CoV-2 & FLU Antigen (Rapid) - Final Goal Trough: 15-20 mcg/mL Pharmacy Plan for Drug Dosing: Pharmacy Service will continue to monitor and adjust dosing as required. TROUGH 6.3 @ 24 HRS. INCREASE TO 1250 Q24 AND FOLLOW UP TROUGH PRIOR TO 3RD DOSE Follow-Up Labs: Trough Vancomycin Labs to be done on [date and time ordered]: 05/23 @ 4884
[2022-05-20] MEDS: Ipratropium 0.5 MG/2.5 ML SOLUTION INHALATION ×3 (07:34→18:56)
[2022-05-20] MEDS: Magnesium Sulfate 4gm/100mL 4 GM/100 ML IV.SOLN. IV (09:01)
[2022-05-20] MEDS: dexAMETHasone 4 MG/ML Vial IV (09:06)
--- NOTE | 2022-05-20 09:08 | PN.SURG_ITS ---
Subjective Subjective Patient's blood cultures came back with Mariana 1 out of 2?patient is being seen by ID, currently patient is lethargic and not following commands, tolerating tube feeds Objective Data Objective Data Vital Signs: Vital Signs Temp Pulse Resp BP Pulse Ox O2 Del Method O2 Flow Rate 97.8 F 107 H 18 147/95 H 95 Room Air 2 05/20/22 03:00 05/20/22 07:30 05/20/22 07:30 05/20/22 03:00 05/20/22 03:00 05/20/22 08:09 05/18/22 14:00 FiO2 35 05/16/22 08:00 Oxygen Flow Rate (L/min) 2 Oxygen Delivery Method Room Air Weight: 105 lb 13.15 oz Body Mass Index (BMI) 19.4 Intake & Output: Intake and Output for Last 24 Hours 05/18/22 05/19/22 05/20/22 23:59 23:59 23:59 Intake Total 3489.0033 / 3489.0033 4869.3333 / 4869.3333 1381.67 / 1381.67 Output Total 2440 / 2440 2600 / 2600 1300 / 1300 Balance 1049.0033 / 1049.0033 2269.3333 / 2269.3333 81.67 / 81.67 Lab / Micro Data Result Diagrams: 05/20/22 05:17 05/20/22 05:17 Labs: Laboratory Results - last 24 hr 05/19/22 11:33: POC Glucose 134 H 05/19/22 17:46: POC Glucose 147 H 05/19/22 22:14: POC Glucose 143 H 05/20/22 05:17: Vancomycin Trough 6.3 05/20/22 05:17: WBC 22.3 H, RBC 3.50 L, Hgb 10.7 L, Hct 32.1 L, MCV 91.7, MCH 30.6, MCHC 33.3, RDW Std Deviation 45.9 H, RDW Coeff of Audrey 13.7, Plt Count 224, MPV 11.0, Immature Gran % (Auto) 2.700 H, Neut % (Auto) 84.3 H, Lymph % (Auto) 8.0 L, [place] % (Auto) 4.5, Eos % (Auto) 0.1, Baso % (Auto) 0.4, Absolute Neuts (auto) 18.8 H, Absolute Lymphs (auto) 1.78, Nucleated RBC % 0 05/20/22 05:17: Sodium 136, Potassium 2.9 L, Chloride 102, Carbon Dioxide 24.0, Anion Gap 10, BUN 18, Creatinine 0.59, Estim Creat Clear Calc 78.43, Est GFR (MDRD) Af Amer 135, Est GFR (MDRD) Non-Af 111, BUN/Creatinine Ratio 30.6 H, Glucose 158 H, Calcium 7.3 L, Phosphorus 2.4 L, Magnesium 1.4 L, Total Bilirubin 0.60, Direct Bilirubin 0.17, AST 41 H, ALT 122 H, Alkaline Phosphatase 184 H, Total Protein 5.0 L, Albumin 1.8 L, Globulin 3.2 05/20/22 05:38: POC Glucose 156 H Micro: Microbiology 05/14/22 05:55 Blood Culture (Wb) - Left Forearm Blood Culture - Preliminary Presumptive C albicans 05/14/22 05:35 Blood Culture (Wb) - Right Forearm Blood Culture - Final No growth in 5 days. 05/12/22 22:50 Blood Culture (Wb) - Chest Blood Culture - Final No growth in 5 days. 05/12/22 22:29 Blood Culture (Wb) - Right Wrist Blood Culture - Final No growth in 5 days. 05/14/22 11:30 Urine Catheter - Isbell Urine Culture - Final Culture exhibits no growth. 05/13/22 09:30 Sputum, Induced/Lukens Gram Stain - Final 05/13/22 09:30 Sputum, Induced/Lukens Respiratory Culture - Final Presumptive C albicans 05/12/22 22:30 Urine, Catheterized Urine Culture - Final Culture exhibits no growth. 05/13/22 00:46 Urine Catheter - Catheter Legionella Antigen - Final 05/13/22 00:46 Urine Catheter - Catheter Streptococcus pneumoniae Antigen (M - Final 05/12/22 22:30 Nasal Secretion SARS-CoV-2 & FLU Antigen (Rapid) - Final Rhythm Strip Rhythm Strip: In and out of sinus rhythm Physical Exam Const no apparent distress General Appearance: lethargic Neck Neck Narrative: Right IJ triple-lumen catheter in place Cardio regular rate GI soft to palpation GI Narrative: Mild distention, incisions clean dry and intact, no left inguinal hernia Skin Skin Narrative: no splinter hemorrhages on hands or feet Neuro Neuro Narrative: Patient does not follow commands currently, able to barely get minimal withdraw from pain on the left lower extremity, no no withdrawal on the right lower extremity or left upper extremity Assessment & Plan Assessment/Plan (1) S/P exploratory laparotomy: (2) Recurrent inguinal hernia of left side with obstruction: (3) Septic shock: (4) Aspiration pneumonia: (5) Acute respiratory failure with hypoxia: (6) Acute hypokalemia: (7) ROSALIE (acute kidney injury): (8) Acute hyponatremia: (9) Acute CVA (cerebrovascular accident): (10) Candidemia: PLAN: Plan Pt mamadou 20 cc/hr, patient is having bowel movements will increase tube feeds to goal-45 cc/hr- increasing every 8-12 hr. Patient will likely need PEG will wait for consistent neurological exam prior to be sedating. Social work is in the process of working on talking with all 4 siblings as there was no POA. Acute CVA-continue exams--awake intermittently with following commands with r ight UE intermittently as well, PT/OT WBC 22, continue IV-Per ID-- abx-zosyn/vanco/fluconazole- 1/2 blood cultures did show Mariana Hypokalemia and hypophosphatemia?replaced Lovenox/PPI Tahmina Wayne M.D. Pager: [phone] [facility] [address] [place] [address], [facility], [address] [place] [id number] Office: [phone]
[2022-05-20] MEDS: 0.9% Saline Lock 10 ML Syringe IV (09:09)
--- NOTE | 2022-05-20 09:48 | CASEMGMT ---
SASHA called patient's sister, Britany. SASHA explained to Britany that since patient is not and she has no children the medical decision makers would legally be her and her siblings. Britany said there are 4 of them not counting patient. Britany was unhappy as these siblings have not been involved in patient's life. SASHA verbalized understanding, but explained that legally all 4 siblings have to agree on medical decisions. SASHA also explained they can refuse to make any decisions and that is fine, but they have to be given the option. Britany did give SASHA the names and numbers of the siblings. Zita Elam lives in [place] and her number is [phone], Enrike Gould lives in [place] and his number is [phone], and Damir Gould also lives in [place]. Britany did not have Damir's phone number. At first Britany told SASHA that no one is to call these family members she is the contact lens inspector. SASHA explained several times that as of right now all 4 of them are the decision makers unless someone chooses not to be apart of decision making. SASHA clarified what decisions SASHA is referring to as Britany was thinking SW meant finances and patient's home. SASHA explained SASHA is referring to medical decisions only. Margarita Greenwood MSW [place]
[2022-05-20] MEDS: Metoprolol Tartrate 25 MG Tablet 12.5 MG NG ×2 (09:59→23:18)
[2022-05-20] MEDS: Acetaminophen 650 MG/20 ML UDC GT (10:06)
--- NOTE | 2022-05-20 11:59 | CASEMGMT ---
[facility] asked if SW had updates. SW sent updates via [employer]ercast. Margarita RODRIGEZ
[2022-05-20 12:10] LABS: Bedside Glucose 182 mg/dL (74-106)
--- NOTE | 2022-05-20 13:39 | PN_ITS ---
Subjective Subjective Patient seen and examined. She still remains minimally responsive. Unable to do review of systems. She has remained hemodynamically stable otherwise. Objective Data Objective Data Vital Signs: Vital Signs Temp Pulse Resp BP Pulse Ox O2 Del Method O2 Flow Rate 98.0 F 108 H 16 133/97 H 94 Room Air 2 05/20/22 09:12 05/20/22 09:59 05/20/22 09:12 05/20/22 09:59 05/20/22 09:12 05/20/22 09:12 05/18/22 14:00 FiO2 35 05/16/22 08:00 Oxygen Flow Rate (L/min) 2 Oxygen Delivery Method Room Air Weight: 105 lb 13.15 oz Body Mass Index (BMI) 19.4 Intake & Output: Intake and Output for Last 24 Hours 05/18/22 05/19/22 05/20/22 23:59 23:59 23:59 Intake Total 3489.0033 / 3489.0033 4869.3333 / 4869.3333 2938.34 / 2938.34 Output Total 2440 / 2440 2600 / 2600 1300 / 1300 Balance 1049.0033 / 1049.0033 2269.3333 / 2269.3333 1638.34 / 1638.34 Lab / Micro Data Result Diagrams: 05/20/22 05:17 05/20/22 05:17 Labs: Laboratory Results - last 24 hr 05/19/22 11:33: POC Glucose 134 H 05/19/22 17:46: POC Glucose 147 H 05/19/22 22:14: POC Glucose 143 H 05/20/22 05:17: Vancomycin Trough 6.3 05/20/22 05:17: WBC 22.3 H, RBC 3.50 L, Hgb 10.7 L, Hct 32.1 L, MCV 91.7, MCH 30.6, MCHC 33.3, RDW Std Deviation 45.9 H, RDW Coeff of Audrey 13.7, Plt Count 224, MPV 11.0, Immature Gran % (Auto) 2.700 H, Neut % (Auto) 84.3 H, Lymph % (Auto) 8.0 L, [place] % (Auto) 4.5, Eos % (Auto) 0.1, Baso % (Auto) 0.4, Absolute Neuts (auto) 18.8 H, Absolute Lymphs (auto) 1.78, Nucleated RBC % 0 05/20/22 05:17: Sodium 136, Potassium 2.9 L, Chloride 102, Carbon Dioxide 24.0, Anion Gap 10, BUN 18, Creatinine 0.59, Estim Creat Clear Calc 78.43, Est GFR (MDRD) Af Amer 135, Est GFR (MDRD) Non-Af 111, BUN/Creatinine Ratio 30.6 H, Glucose 158 H, Calcium 7.3 L, Phosphorus 2.4 L, Magnesium 1.4 L, Total Bilirubin 0.60, Direct Bilirubin 0.17, AST 41 H, ALT 122 H, Alkaline Phosphatase 184 H, Total Protein 5.0 L, Albumin 1.8 L, Globulin 3.2 05/20/22 05:38: POC Glucose 156 H 05/20/22 11:45: POC Glucose 182 H Micro: Microbiology 05/14/22 05:55 Blood Culture (Wb) - Left Forearm Blood Culture - Preliminary Presumptive C albicans 05/14/22 05:35 Blood Culture (Wb) - Right Forearm Blood Culture - Final No growth in 5 days. 05/12/22 22:50 Blood Culture (Wb) - Chest Blood Culture - Final No growth in 5 days. 05/12/22 22:29 Blood Culture (Wb) - Right Wrist Blood Culture - Final No growth in 5 days. 05/14/22 11:30 Urine Catheter - Isbell Urine Culture - Final Culture exhibits no growth. 05/13/22 09:30 Sputum, Induced/Lukens Gram Stain - Final 05/13/22 09:30 Sputum, Induced/Lukens Respiratory Culture - Final Presumptive C albicans 05/12/22 22:30 Urine, Catheterized Urine Culture - Final Culture exhibits no growth. 05/13/22 00:46 Urine Catheter - Catheter Legionella Antigen - Final 05/13/22 00:46 Urine Catheter - Catheter Streptococcus pneumoniae Antigen (M - Final 05/12/22 22:30 Nasal Secretion SARS-CoV-2 & FLU Antigen (Rapid) - Final Rhythm Strip Rhythm Strip: In and out of sinus rhythm Physical Exam Const Constitutional Narrative: lethargic, minimally responsive HEENT normocephalic, head/scalp atraumatic and moist oral mucous membranes Eyes PERRL, EOMs intact bilaterally and conjunctivae normal Neck supple and no JVD General: trachea midline Lymph Lymphatic: no lymphadenopathy noted Resp normal respiratory effort, no retractions and no use of accessory muscles Resp Narrative: diminished breath sounds bibasally, no wheezes or crackles. On room air Auscultation: Negative for crackles, rales, rhonchi or wheezes Cardio regular rate, regular rhythm, S1 normal heart sound, S2 normal heart sound and no murmurs Cardio Narrative: tachycardic GI normal to inspection, nondistended, normoactive bowel sounds, soft to palpation, non-tender and non-distended; Negative for hepatosplenomegaly Extremity normal capillary refill, no clubbing, cyanosis or edema and no calf tenderness Skin no rashes or lesions noted General Skin Exam: no breakdown Neuro Neuro Narrative: lethargic, open eyes only in response to voice. spontaneous movement noted of RUE, no spontaneous movement noted of LUE and LLE Psych Psych Narrative: lethargic, Assessment & Plan Assessment/Plan (1) Small bowel obstruction: (2) S/P exploratory laparotomy: (3) Acute respiratory failure with hypoxia: (4) ARDS (adult respiratory distress syndrome): (5) Aspiration pneumonia: (6) Septic shock: PLAN: Plan #Acute hypoxic respiratory failure due to aspiration pneumonia and ARDS * extubated and now on room air. * sputum cultures are negative * on IV vancomycin and zosyn * #Acute CVA * patient was noted to have right sided hemiparesis after extubation * CT of the brain showed large areas of abnormal edema in the parietal occipital lobes with smaller regions of abnormal edema in the cerebellum concerning for large acute infarctions versus hepatic encephalopathy. * CTA head and neck showed no evidence of hemodynamic currently significant stenosis * Patient was evaluated by [facility] neurology after stroke alert was ordered. * [facility] telestroke neurologist reviewed imaging and thought patient had bilateral ischemic strokes. Neurologist recommended holding off on anticoagulation for now given the patient has A-fib and to start aspirin. * on high intensity statin * PT OT on board. * MRI of the brain showed large areas of restricted diffusion in the bilateral posterior cerebral hemispheres concerning for large acute infarct and small bilateral cerebellar infarcts as well as small acute lacunar infarct in the bilateral basal ganglia. * 2D echo showed normal left ventricular size with normal left ventricular systolic function and EF of 65% with negative bubble study. * #Candidemia: * blood culture positive for resumptive rocky albicans. ID consulted. * on IV fluconazole as per ID. * repeat blood cultures ordered #Afib * heart rate is improving.off cardizem drip * not started on anticoagulation yet due to risk of hemorrhagic transformation from large ischemic stroke * HR is 107 today. * will start on metoprolol 12.5 bid via NG tube * shelli consider starting a beta gagan if HR remains elevated #ROSALIE * resolved. * #Small bowel obstruction and incarcerated hernia * s/p exploratory laparotomy * general surgery on board. * on tube feeds * management as per general surgery * NG tube in place * #Hypokalemia, hypomagnesemia and hypophosphatemia: Calcium today is 2.9. Will replace and trend. Magnesium is also 1.4. Will replace. #Hypotension: resolved. #Nutrition: On tube feeds. DVT prophylais: lovenox Disposition:will need placement Charges/Coding Visit Charges Inpatient E&M: 52260 [facility] Hosp L3
--- NOTE | 2022-05-20 13:41 | CASEMGMT ---
SASHA called patient's sister Zita and left her a voice mail requesting a return call. SASHA called patient's brother Enrike and left him a message requesting a return phone call. Margarita RODRIGEZ
[2022-05-20] MEDS: Vital AF 1.2 Cal Liquid 1,000 ML 40 ML GT (16:50)
--- NOTE | 2022-05-20 17:46 | NURSING ---
Sutures dislodged during dressing change of central line.
[2022-05-20 17:56] LABS: Bedside Glucose 167 mg/dL (74-106)
[2022-05-20 22:52] LABS: Potassium 3.6 mmol/L (3.5-5.1)
[2022-05-21] VITALS (9 sets, daily range): BP systolic 125–139; BP diastolic 85–95; PULSE 65–91; RESP 16–25; TEMP 36.1–36.8; O2SAT 94–99; BMI 19.4
[2022-05-21 00:10] LABS: Bedside Glucose 180 mg/dL (74-106)
[2022-05-21 03:47] LABS: Potassium 3.4 mmol/L (3.5-5.1)
[2022-05-21] MEDS: Enoxaparin 40 MG/0.4 ML Syringe SC (06:20)
[2022-05-21 07:05] LABS: Bedside Glucose 128 mg/dL (74-106)
[2022-05-21 07:06] LABS: Absolute Lymphocyte Count 1.65 X10^3/uL (0.83-4.51); Absolute Neutrophil Count 17.6 X10^3/uL (2.0-7.7); Basophil# 0.08 X10^3/uL; Basophil% 0.4 % (0-1); Eosinophil# 0.03 X10^3/uL; Eosinophils% 0.1 % (0-5); Lymphocyte # 1.65 X10^3/ul (0.83-4.51); Mean Corp Hgb Conc 33.3 g/dL (32-36); Mean Corpuscular Hgb 30.7 pg (27.0-32.0); Mean Platelet Vol. 10.5 fl (6.2-12.0); Monocyte# 0.81 X10^3/uL; Monocyte% 3.9 % (0-10); NRBC Flagged by Analyzer 0 % (0-5); Neutrophil # 17.61 X10^3/uL (2.7-7.7); Neutrophil % 85.6 % (47-70); Platelet Count 307 K/mm3 (150-450); RBC Distribution Width CV 13.7 % (11.6-14.6); RBC Distribution Width SD 45.8 fl (35.1-43.9); Red Blood Count 3.26 M/mm3 (4.2-5.4); White Blood Count 20.6 K/mm3 (4.4-11.0)
[2022-05-21] MEDS: Ipratropium 0.5 MG/2.5 ML SOLUTION INHALATION ×3 (07:15→19:16)
[2022-05-21 07:28] LABS: Anion Gap 8 (5-15); BUN 15 mg/dL (7-18); BUN/Creat Ratio 30.6 RATIO (10-20); Calcium,Total 7.3 mg/dL (8.5-10.1); Chloride 104 mmol/L (98-107); Creatinine, Serum 0.49 mg/dL (0.55-1.02); EST Glomerular Filtration Rate 138 mL/min (>60); Est Glom Filt Rate - Afr Amer 166 mL/min (>60); Estimated Creatinine Clearance 94.43 ml/min; Glucose 138 mg/dL (74-106); Magnesium 1.9 mg/dL (1.6-2.6); Phosphorus 2.7 mg/dL (2.5-4.9); Potassium 3.4 mmol/L (3.5-5.1); Sodium Level 137 mmol/L (136-145)
[2022-05-21] MEDS: Metoprolol Tartrate 25 MG Tablet 12.5 MG NG (09:30)
[2022-05-21] MEDS: Potassium Chloride Oral Soln 20 MEQ/15 ML UDC 40 MEQ NG (09:30)
[2022-05-21] MEDS: dexAMETHasone 4 MG/ML Vial IV (09:30)
--- NOTE | 2022-05-21 09:36 | PN.SURG_ITS ---
Subjective Subjective Patient is able to slowly awaken and open her eyes and squeeze right upper extremity but did not move other extremities. Objective Data Objective Data Vital Signs: Vital Signs Temp Pulse Resp BP Pulse Ox O2 Del Method O2 Flow Rate 97.5 F L 88 20 H 125/87 H 94 Room Air 2 05/21/22 04:06 05/21/22 09:30 05/21/22 07:15 05/21/22 09:30 05/21/22 07:15 05/21/22 07:15 05/18/22 14:00 FiO2 35 05/16/22 08:00 Oxygen Flow Rate (L/min) 2 Oxygen Delivery Method Room Air Weight: 105 lb 9.623 oz Body Mass Index (BMI) 19.4 Intake & Output: Intake and Output for Last 24 Hours 05/19/22 05/20/22 05/21/22 23:59 23:59 23:59 Intake Total 4869.3333 / 4869.3333 5181.6733 / 5181.6733 2176 / 2176 Output Total 2600 / 2600 3400 / 3850 1100 / 1100 Balance 2269.3333 / 2269.3333 1781.6733 / 1331.6733 1076 / 1076 Lab / Micro Data Result Diagrams: 05/21/22 06:10 05/21/22 06:10 Labs: Laboratory Results - last 24 hr 05/20/22 11:45: POC Glucose 182 H 05/20/22 16:59: POC Glucose 167 H 05/20/22 22:30: Potassium 3.6 05/20/22 23:49: POC Glucose 180 H 05/21/22 03:00: Potassium 3.4 L 05/21/22 06:10: WBC 20.6 H, RBC 3.26 L, Hgb 10.0 L, Hct 30.0 L, MCV 92.0, MCH 30.7, MCHC 33.3, RDW Std Deviation 45.8 H, RDW Coeff of Audrey 13.7, Plt Count 307, MPV 10.5, Immature Gran % (Auto) 2.000 H, Neut % (Auto) 85.6 H, Lymph % (Auto) 8.0 L, [place] % (Auto) 3.9, Eos % (Auto) 0.1, Baso % (Auto) 0.4, Absolute Neuts (auto) 17.6 H, Absolute Lymphs (auto) 1.65, Nucleated RBC % 0 05/21/22 06:10: Sodium 137, Potassium 3.4 L, Chloride 104, Carbon Dioxide 25.0, Anion Gap 8, BUN 15, Creatinine 0.49 L, Estim Creat Clear Calc 94.43, Est GFR (MDRD) Af Amer 166, Est GFR (MDRD) Non-Af 138, BUN/Creatinine Ratio 30.6 H, Glucose 138 H, Calcium 7.3 L, Phosphorus 2.7, Magnesium 1.9 05/21/22 06:41: POC Glucose 128 H Micro: Microbiology 05/14/22 05:55 Blood Culture (Wb) - Left Forearm Blood Culture - Preliminary Presumptive C albicans 05/14/22 05:35 Blood Culture (Wb) - Right Forearm Blood Culture - Final No growth in 5 days. 05/12/22 22:50 Blood Culture (Wb) - Chest Blood Culture - Final No growth in 5 days. 05/12/22 22:29 Blood Culture (Wb) - Right Wrist Blood Culture - Final No growth in 5 days. 05/14/22 11:30 Urine Catheter - Isbell Urine Culture - Final Culture exhibits no growth. 05/13/22 09:30 Sputum, Induced/Lukens Gram Stain - Final 05/13/22 09:30 Sputum, Induced/Lukens Respiratory Culture - Final Presumptive C albicans 05/12/22 22:30 Urine, Catheterized Urine Culture - Final Culture exhibits no growth. 05/13/22 00:46 Urine Catheter - Catheter Legionella Antigen - Final 05/13/22 00:46 Urine Catheter - Catheter Streptococcus pneumoniae Antigen (M - Final 05/12/22 22:30 Nasal Secretion SARS-CoV-2 & FLU Antigen (Rapid) - Final Rhythm Strip Rhythm Strip: In and out of sinus rhythm Physical Exam Narrative NG in place tube feeds at 45 cc an hour?goal Const no apparent distress Constitutional Narrative: Patient does take a while to arouse but was able to open her eyes and follow commands with the right upper extremity as far as squeezing. Neck Neck Narrative: Right IJ triple-lumen catheter in place Cardio regular rate GI soft to palpation GI Narrative: Mild distention, incisions clean dry and intact, no left inguinal hernia Neuro Neuro Narrative: Patient is slow to arouse but does open her eyes and squeeze hand right upper extremity. Patient does not move bilateral lower extremities or left upper extremity Assessment & Plan Assessment/Plan (1) S/P exploratory laparotomy: (2) Recurrent inguinal hernia of left side with obstruction: (3) Septic shock: (4) Aspiration pneumonia: (5) Acute respiratory failure with hypoxia: (6) Acute hypokalemia: (7) ROSALIE (acute kidney injury): (8) Acute hyponatremia: (9) Acute CVA (cerebrovascular accident): (10) Candidemia: PLAN: Plan Pt mamadou 45 cc/hr, patient is having bowel movements. Patient will likely need PEG will wait for consistent neurological exam prior to be sedating. Social w ork is in the process of working on talking with all 4 siblings as there was no POA. Acute CVA-continue exams--awake intermittently with following commands with right UE intermittently as well, PT/OT WBC 20.6, continue IV-Per ID-- abx-zosyn/vanco/fluconazole- 1/2 blood cultures did show Mariana Hypokalemia?replaced Lovenox/PPI Tahmina Wayne M.D. Pager: [phone] [facility] [address] [place] [address], [facility], [address] [place] [address] Office: [phone]
[2022-05-21] MEDS: Menthol/Lanolin/Calamine/Znox 113 GM Tube 1 APPLIC TOPICAL (10:55)
--- NOTE | 2022-05-21 11:01 | CASEMGMT ---
SASHA received a return call from patient's sister Zita. SASHA explained that right now patient is not able to make medical decisions. Legally patient's decision makers will be her siblings. SASHA explained it would be all four of them not just one of them. SASHA also explained if she does not want to make any decisions that is fine she just needs to let SW know. Zita said she probably won't come into the hospital as she does not want to cause trouble. Britany and the rest of the siblings do not get along. Zita said she would like to be a part of decision making however she will likely go along with whatever Britany and Enrike decide. SASHA explained SW will talk with her via phone to make sure she is onboard. SASHA also explained if she would like SW can put her on speaker phone if physician were to talk with family. Zita said she is in agreement with this plan. Zita did say they all want what is best for patient despite them not all getting along. Zita did give SW their other sibling Siddhartha's phone number. Siddhartha's number is [phone]. Margarita Greenwood MSW ELEVATOR RUNNER
[2022-05-21] MEDS: Insulin Lispro 100 UNIT/ML INSULN.PEN SC ×2 (12:28→18:02)
[2022-05-21 12:50] LABS: Bedside Glucose 168 mg/dL (74-106)
--- NOTE | 2022-05-21 13:07 | PN_ITS ---
Subjective Subjective Patient seen and examined. She still remains lethargic and minimally responsive. Unable to do review of systems. She has candidemia to MIKO to be ordered today to evaluate for emboli. She has remained hemodynamically stable. Objective Data Objective Data Vital Signs: Vital Signs Temp Pulse Resp BP Pulse Ox O2 Del Method O2 Flow Rate 98.2 F 86 18 125/87 H 96 Room Air 2 05/21/22 10:00 05/21/22 10:00 05/21/22 10:00 05/21/22 10:00 05/21/22 10:00 05/21/22 10:00 05/18/22 14:00 FiO2 35 05/16/22 08:00 Oxygen Flow Rate (L/min) 2 Oxygen Delivery Method Room Air Weight: 105 lb 9.623 oz Body Mass Index (BMI) 19.4 Intake & Output: Intake and Output for Last 24 Hours 05/19/22 05/20/22 05/21/22 23:59 23:59 23:59 Intake Total 4869.3333 / 4869.3333 5181.6733 / 5181.6733 2811 / 2811 Output Total 2600 / 2600 3400 / 3850 1750 / 1750 Balance 2269.3333 / 2269.3333 1781.6733 / 1331.6733 1061 / 1061 Lab / Micro Data Result Diagrams: 05/21/22 06:10 05/21/22 06:10 Labs: Laboratory Results - last 24 hr 05/20/22 16:59: POC Glucose 167 H 05/20/22 22:30: Potassium 3.6 05/20/22 23:49: POC Glucose 180 H 05/21/22 03:00: Potassium 3.4 L 05/21/22 06:10: WBC 20.6 H, RBC 3.26 L, Hgb 10.0 L, Hct 30.0 L, MCV 92.0, MCH 30.7, MCHC 33.3, RDW Std Deviation 45.8 H, RDW Coeff of Audrey 13.7, Plt Count 307, MPV 10.5, Immature Gran % (Auto) 2.000 H, Neut % (Auto) 85.6 H, Lymph % (Auto) 8.0 L, [place] % (Auto) 3.9, Eos % (Auto) 0.1, Baso % (Auto) 0.4, Absolute Neuts (auto) 17.6 H, Absolute Lymphs (auto) 1.65, Nucleated RBC % 0 05/21/22 06:10: Sodium 137, Potassium 3.4 L, Chloride 104, Carbon Dioxide 25.0, Anion Gap 8, BUN 15, Creatinine 0.49 L, Estim Creat Clear Calc 94.43, Est GFR (MDRD) Af Amer 166, Est GFR (MDRD) Non-Af 138, BUN/Creatinine Ratio 30.6 H, Glucose 138 H, Calcium 7.3 L, Phosphorus 2.7, Magnesium 1.9 05/21/22 06:41: POC Glucose 128 H 05/21/22 12:27: POC Glucose 168 H Micro: Microbiology 05/14/22 05:55 Blood Culture (Wb) - Left Forearm Blood Culture - Preliminary Presumptive C albicans 05/14/22 05:35 Blood Culture (Wb) - Right Forearm Blood Culture - Final No growth in 5 days. 05/12/22 22:50 Blood Culture (Wb) - Chest Blood Culture - Final No growth in 5 days. 05/12/22 22:29 Blood Culture (Wb) - Right Wrist Blood Culture - Final No growth in 5 days. 05/14/22 11:30 Urine Catheter - Isbell Urine Culture - Final Culture exhibits no growth. 05/13/22 09:30 Sputum, Induced/Lukens Gram Stain - Final 05/13/22 09:30 Sputum, Induced/Lukens Respiratory Culture - Final Presumptive C albicans 05/12/22 22:30 Urine, Catheterized Urine Culture - Final Culture exhibits no growth. 05/13/22 00:46 Urine Catheter - Catheter Legionella Antigen - Final 05/13/22 00:46 Urine Catheter - Catheter Streptococcus pneumoniae Antigen (M - Final 05/12/22 22:30 Nasal Secretion SARS-CoV-2 & FLU Antigen (Rapid) - Final Rhythm Strip Rhythm Strip: In and out of sinus rhythm Physical Exam Const Constitutional Narrative: lethargic, minimally responsive General Appearance: intubated and patient mechanically ventilated HEENT normocephalic, head/scalp atraumatic and moist oral mucous membranes Eyes PERRL, EOMs intact bilaterally and conjunctivae normal Neck supple and no JVD General: trachea midline Lymph Lymphatic: no lymphadenopathy noted Resp normal respiratory effort, no retractions and no use of accessory muscles Resp Narrative: diminished breath sounds bibasally, no wheezes or crackles. On room air Auscultation: Negative for crackles, rales, rhonchi or wheezes Cardio regular rate, regular rhythm, S1 normal heart sound, S2 normal heart sound and no murmurs GI normal to inspection, nondistended, normoactive bowel sounds, soft to palpation, non-tender and non-distended; Negative for hepatosplenomegaly Extremity normal capillary refill, no clubbing, cyanosis or edema and no calf tenderness Skin no rashes or lesions noted General Skin Exam: no breakdown Neuro Neuro Narrative: lethargic, open eyes only in response to voice. minimal spontaneous movement noted of all extremities. Psych Psych Narrative: lethargic Assessment & Plan Assessment/Plan (1) Small bowel obstruction: (2) S/P exploratory laparotomy: (3) Acute respiratory failure with hypoxia: (4) ARDS (adult respiratory distress syndrome): (5) Aspiration pneumonia: (6) Septic shock: PLAN: Plan #Acute hypoxic respiratory failure due to aspiration pneumonia and ARDS * extubated and now on room air. * sputum cultures are negative * on IV vancomycin and zosyn * #Acute CVA * patient was noted to have right sided hemiparesis after extubation * CT of the brain showed large areas of abnormal edema in the parietal occipital lobes with smaller regions of abnormal edema in the cerebellum concerning for large acute infarctions versus hepatic encephalopathy. * CTA head and neck showed no evidence of hemodynamic currently significant stenosis * [facility] telestroke neurologist reviewed imaging and thought patient had bilateral ischemic strokes. Neurologist recommended holding off on anticoagulation for now even though patient has afib the patient has A-fib and to start aspirin. * on high intensity statin * PT OT on board. * MRI of the brain showed large areas of restricted diffusion in the bilateral posterior cerebral hemispheres concerning for large acute infarct and small bilateral cerebellar infarcts as well as small acute lacunar infarct in the bilateral basal ganglia. * 2D echo showed normal left ventricular size with normal left ventricular systolic function and EF of 65% with negative bubble study. * will start blood thinners after she has MIKO * #Candidemia: * blood culture positive for resumptive rocky albicans. ID consulted. * on IV fluconazole as per ID. * repeat blood cultures ordered and pending * MIKO ordered; per cardiology, to be done tomorrow #Afib * heart rate is improving.off cardizem drip * not started on anticoagulation yet due to risk of hemorrhagic transformation from large ischemic stroke * HR is 107 today. * on metoprolol 12.5mg bid * Will start anticoagulation after MIKO on Tuesday #ROSALIE * resolved. * #Small bowel obstruction and incarcerated hernia * s/p exploratory laparotomy * general surgery on board. * on tube feeds * management as per general surgery * NG tube in place * #Hypokalemia, hypomagnesemia and hypophosphatemia: Calcium today is 2.9. Will replace and trend. Magnesium is also 1.4. Will replace. #Hypotension: resolved. #Nutrition: On tube feeds. DVT prophylaxis: lovenox Disposition:will need placement Charges/Coding Visit Charges Inpatient E&M: 06789 [facility] Hosp L2
--- NOTE | 2022-05-21 14:19 | PCM.PN.ID ---
Physical Exam Narrative No fever, no events overnight Const Orientation / Consciousness: lethargic Resp normal air movement and clear to auscultation bilaterally Cardio regular rate and regular rhythm GI soft to palpation, non-tender and non-distended Skin no rashes or lesions noted ID ID: Route of nutrition/ use of supplements: [] Nutritional Intake: [] IV Site: [] Isbell Catheter: [] Assessment & Plan Assessment/Plan (1) Acute CVA (cerebrovascular accident): (2) ROSALIE (acute kidney injury): (3) Candidemia: PLAN: 1 of 2 bcx from 05/14/22 with c.albicans, presumptive ID. TTE showed no veg. 05/19 started high dose fluconazole, 800mg once, then 400mg daily. Repeat bcx today. Recommend MIKO if possible, but avoiding sedation at this point. Will stop vanc/zosyn, has completed course for pneumonia. Will follow
--- NOTE | 2022-05-21 15:50 | CASEMGMT ---
SASHA attempted to call patient's brother Siddhartha. There was no answer so a voice mail was left requesting a return call. SASHA also tried to call patient's brother Enrike again, however no answer. Another message was not left. Margarita Greenwood DRY CELL ASSEMBLY SUPERVISOR ELIA
--- NOTE | 2022-05-21 15:58 | CASEMGMT ---
SASHA received a call from patient's brother Enrike. SASHA let him know that due to patient's inability to make decisions for herself he and his siblings would be the decision makers. Gonsalo would like to be a part of decision making for patient. SASHA let him know that right now there are no decisions to be made, but SASHA wanted to make sure he was aware. He thanked SASHA. Enrike said Waqar is supposed to be calling SASHA also. Margarita Greenwood SUPERVISOR [employer]ICATION ELIA
[2022-05-21 18:35] LABS: Bedside Glucose 165 mg/dL (74-106)
[2022-05-22] VITALS (10 sets, daily range): BP systolic 139–165; BP diastolic 92–96; PULSE 76–105; RESP 15–20; TEMP 36.4–36.7; O2SAT 96–99
[2022-05-22] MEDS: Metoprolol Tartrate 25 MG Tablet 12.5 MG NG ×3 (01:35→20:56)
[2022-05-22] MEDS: Menthol/Lanolin/Calamine/Znox 113 GM Tube 1 APPLIC TOPICAL ×2 (01:38→09:33)
[2022-05-22] MEDS: Vital AF 1.2 Cal Liquid 1,000 ML 45 ML GT ×2 (03:41→20:56)
[2022-05-22] MEDS: Enoxaparin 40 MG/0.4 ML Syringe SC (06:13)
[2022-05-22 06:23] LABS: Absolute Lymphocyte Count 1.46 X10^3/uL (0.83-4.51); Absolute Neutrophil Count 17.5 X10^3/uL (2.0-7.7); Basophil# 0.05 X10^3/uL; Basophil% 0.2 % (0-1); Eosinophil# 0.05 X10^3/uL; Eosinophils% 0.2 % (0-5); Hemoglobin 10.7 g/dL (12.0-15.0); Lymphocyte # 1.46 X10^3/ul (0.83-4.51); Lymphocyte % 7.2 % (19-41); Mean Corp Hgb Conc 33.4 g/dL (32-36); Mean Corpuscular Hgb 31.4 pg (27.0-32.0); Mean Corpuscular Volume 93.8 fL (81-99); Mean Platelet Vol. 10.2 fl (6.2-12.0); Monocyte# 0.92 X10^3/uL; Monocyte% 4.5 % (0-10); NRBC Flagged by Analyzer 0 % (0-5); Neutrophil # 17.48 X10^3/uL (2.7-7.7); Neutrophil % 85.9 % (47-70); Platelet Count 419 K/mm3 (150-450); RBC Distribution Width CV 14.5 % (11.6-14.6); RBC Distribution Width SD 47.8 fl (35.1-43.9); Red Blood Count 3.41 M/mm3 (4.2-5.4); White Blood Count 20.4 K/mm3 (4.4-11.0)
[2022-05-22 06:48] LABS: Anion Gap 7 (5-15); BUN 18 mg/dL (7-18); BUN/Creat Ratio 36.4 RATIO (10-20); Calcium,Total 7.5 mg/dL (8.5-10.1); Chloride 104 mmol/L (98-107); Creatinine, Serum 0.49 mg/dL (0.55-1.02); EST Glomerular Filtration Rate 136 mL/min (>60); Est Glom Filt Rate - Afr Amer 165 mL/min (>60); Estimated Creatinine Clearance 94.43 ml/min; Glucose 158 mg/dL (74-106); Magnesium 1.4 mg/dL (1.6-2.6); Phosphorus 1.8 mg/dL (2.5-4.9); Potassium 3.5 mmol/L (3.5-5.1); Sodium Level 133 mmol/L (136-145)
[2022-05-22] MEDS: Ipratropium 0.5 MG/2.5 ML SOLUTION INHALATION ×3 (06:54→19:28)
[2022-05-22] MEDS: dexAMETHasone 4 MG/ML Vial IV (09:16)
[2022-05-22] MEDS: Magnesium Sulfate 4gm/100mL 4 GM/100 ML IV.SOLN. IV (09:21)
[2022-05-22] MEDS: 0.9% Saline Lock 10 ML Syringe IV (09:32)
[2022-05-22 09:35] LABS: Bedside Glucose 147 mg/dL (74-106)
[2022-05-22 11:20] LABS: Bedside Glucose 139 mg/dL (74-106)
[2022-05-22] MEDS: Insulin Lispro 100 UNIT/ML INSULN.PEN SC ×2 (12:00→17:37)
[2022-05-22 12:20] LABS: Bedside Glucose 165 mg/dL (74-106)
--- NOTE | 2022-05-22 14:53 | PN_ITS ---
Subjective Subjective Patient seen and examined. She is much more alert and communicative and is actually able to answer questions. She denies any fever, chills, cough, chest pain, palpitations, dizziness, nausea, vomiting or diarrhea. Review of systems is otherwise negative. She has remained hemodynamically stable. Objective Data Objective Data Vital Signs: Vital Signs Temp Pulse Resp BP Pulse Ox O2 Del Method O2 Flow Rate 97.9 F 85 20 H 146/96 H 97 Room Air 2 05/22/22 10:00 05/22/22 13:08 05/22/22 13:08 05/22/22 10:00 05/22/22 10:00 05/22/22 14:16 05/18/22 14:00 FiO2 35 05/16/22 08:00 Oxygen Flow Rate (L/min) 2 Oxygen Delivery Method Room Air Weight: 105 lb 9.623 oz Body Mass Index (BMI) 19.4 Intake & Output: Intake and Output for Last 24 Hours 05/20/22 05/21/22 05/22/22 23:59 23:59 23:59 Intake Total 5181.6733 / 5181.6733 4874.33 / 4874.33 2401.67 / 2401.67 Output Total 3400 / 3850 2325 / 2325 1500 / 1500 Balance 1781.6733 / 1331.6733 2549.33 / 2549.33 901.67 / 901.67 Lab / Micro Data Result Diagrams: 05/22/22 05:39 05/22/22 05:39 Labs: Laboratory Results - last 24 hr 05/21/22 17:59: POC Glucose 165 H 05/22/22 01:45: POC Glucose 147 H 05/22/22 05:39: WBC 20.4 H, RBC 3.41 L, Hgb 10.7 L, Hct 32.0 L, MCV 93.8, MCH 31.4, MCHC 33.4, RDW Std Deviation 47.8 H, RDW Coeff of Audrey 14.5, Plt Count 419, MPV 10.2, Immature Gran % (Auto) 2.000 H, Neut % (Auto) 85.9 H, Lymph % (Auto) 7.2 L, [place] % (Auto) 4.5, Eos % (Auto) 0.2, Baso % (Auto) 0.2, Absolute Neuts (auto) 17.5 H, Absolute Lymphs (auto) 1.46, Nucleated RBC % 0 05/22/22 05:39: Sodium 133 L, Potassium 3.5, Chloride 104, Carbon Dioxide 22.0, Anion Gap 7, BUN 18, Creatinine 0.49 L, Estim Creat Clear Calc 94.43, Est GFR (MDRD) Af Amer 165, Est GFR (MDRD) Non-Af 136, BUN/Creatinine Ratio 36.4 H, Glucose 158 H, Calcium 7.5 L, Phosphorus 1.8 L, Magnesium 1.4 L 05/22/22 06:11: POC Glucose 139 H 05/22/22 11:58: POC Glucose 165 H Micro: Microbiology 05/20/22 08:17 Blood Culture (Wb) - Anticubital Right Blood Culture - Preliminary No growth in 48 hours. 05/14/22 05:55 Blood Culture (Wb) - Left Forearm Blood Culture - Preliminary Presumptive C albicans 05/14/22 05:35 Blood Culture (Wb) - Right Forearm Blood Culture - Final No growth in 5 days. 05/12/22 22:50 Blood Culture (Wb) - Chest Blood Culture - Final No growth in 5 days. 05/12/22 22:29 Blood Culture (Wb) - Right Wrist Blood Culture - Final No growth in 5 days. 05/14/22 11:30 Urine Catheter - Isbell Urine Culture - Final Culture exhibits no growth. 05/13/22 09:30 Sputum, Induced/Lukens Gram Stain - Final 05/13/22 09:30 Sputum, Induced/Lukens Respiratory Culture - Final Presumptive C albicans 05/12/22 22:30 Urine, Catheterized Urine Culture - Final Culture exhibits no growth. 05/13/22 00:46 Urine Catheter - Catheter Legionella Antigen - Final 05/13/22 00:46 Urine Catheter - Catheter Streptococcus pneumoniae Antigen (M - Final 05/12/22 22:30 Nasal Secretion SARS-CoV-2 & FLU Antigen (Rapid) - Final Rhythm Strip Rhythm Strip: In and out of sinus rhythm Physical Exam Const alert and no apparent distress Constitutional Narrative: lethargic, minimally responsive General Appearance: cooperative HEENT normocephalic, head/scalp atraumatic and moist oral mucous membranes Eyes PERRL and EOMs intact bilaterally Neck no lymphadenopathy and supple General: trachea midline Lymph Lymphatic: no lymphadenopathy noted and no lymphedema noted Resp normal respiratory effort, normal air movement and clear to auscultation bilaterally Resp Narrative: mildly diminished breath sounds bibasally, on room air Auscultation: Negative for crackles, rales, rhonchi or wheezes Cardio regular rate, regular rhythm, S1 normal heart sound, S2 normal heart sound and no murmurs Cardio Narrative: tachycardic GI normal to inspection, nondistended, normoactive bowel sounds, soft to palpation, non-tender and non-distended GI Narrative: NG tube in situ Extremity normal capillary refill and no clubbing, cyanosis or edema Skin no rashes or lesions noted General Skin Exam: no breakdown Neuro CN's II-XII intact bilaterally Neuro Narrative: unable to move her left upper extremity and left lower extremity. She has some movement of her RUE, but has no noticeable movement of her RLE either. Sensorium / Orientation: sedated on vent Psych Psych Narrative: lethargic Appearance: intubated Assessment & Plan Assessment/Plan (1) Small bowel obstruction: (2) S/P exploratory laparotomy: (3) Acute respiratory failure with hypoxia: (4) ARDS (adult respiratory distress syndrome): (5) Aspiration pneumonia: (6) Septic shock: PLAN: Plan #Acute hypoxic respiratory failure due to aspiration pneumonia and ARDS * extubated and now on room air. * sputum cultures are negative * on IV vancomycin and zosyn * #Acute CVA * patient was noted to have left sided hemiparesis after extubation (not right sided hemiparesis as noted in previous documentation) * CT of the brain showed large areas of abnormal edema in the parietal occipital lobes with smaller regions of abnormal edema in the cerebellum concerning for large acute infarctions versus hepatic encephalopathy. * CTA head and neck showed no evidence of hemodynamic currently significant stenosis * [facility] telestroke neurologist reviewed imaging and thought patient had bilateral ischemic strokes. Neurologist recommended holding off on anticoagulation for now even though patient has afib the patient has A-fib and to start aspirin. * on high intensity statin * PT OT on board. * MRI of the brain showed large areas of restricted diffusion in the bilateral posterior cerebral hemispheres concerning for large acute infarct and small bilateral cerebellar infarcts as well as small acute lacunar infarct in the bilateral basal ganglia. * 2D echo showed normal left ventricular size with normal left ventricular systolic function and EF of 65% with negative bubble study. * on therapeutic lovenox * she is much more alert and communicative today and able to answer questions * #Candidemia: * blood culture positive for resumptive rocky albicans. ID consulted. * on IV fluconazole as per ID. * repeat blood cultures ordered and pending * MIKO ordered; per cardiology, to be done Tuesday #Afib * heart rate is improving.off cardizem drip * now on therapeutic lovenox since it has been ~ 1 week since she was diagnosed with the stroke. * HR is down to 85 today,. * on metoprolol 12.5mg bid * now on therapeutic lovenox #ROSALIE * resolved. * #Small bowel obstruction and incarcerated hernia * s/p exploratory laparotomy * general surgery on board. * on tube feeds * management as per general surgery * NG tube in place * #Hypokalemia, hypomagnesemia and hypophosphatemia: magnesium is 1.4 and phospho huey is 1.8. Potassium is 3.5. Will replace and trend. #Hypotension: resolved. #Nutrition: On tube feeds. DVT prophylaxis: lovenox Disposition:will need placement. case management on board. Charges/Coding Visit Charges Inpatient E&M: 97267 Subs Hosp L2
[2022-05-22 18:05] LABS: Bedside Glucose 173 mg/dL (74-106)
[2022-05-22] MEDS: Enoxaparin 60 MG/0.6 ML Syringe 50 MG SC (20:55)
[2022-05-23] VITALS (12 sets, daily range): BP systolic 139–165; BP diastolic 88–99; PULSE 88–122; RESP 16–28; TEMP 36.5–36.8; O2SAT 96–99; BMI 19.3
[2022-05-23 00:30] LABS: Bedside Glucose 121 mg/dL (74-106)
[2022-05-23] MEDS: hydrALAZINE 20 MG/ML Vial 10 MG IV (06:08)
[2022-05-23 06:40] LABS: Bedside Glucose 124 mg/dL (74-106)
[2022-05-23 06:54] LABS: Absolute Neutrophil Count 17.9 X10^3/uL (2.0-7.7); Basophil# 0.04 X10^3/uL; Basophil% 0.2 % (0-1); Eosinophil# 0.08 X10^3/uL; Eosinophils% 0.4 % (0-5); Hematocrit 34.4 % (37-47); Hemoglobin 11.6 g/dL (12.0-15.0); Mean Corp Hgb Conc 33.7 g/dL (32-36); Mean Corpuscular Hgb 31.4 pg (27.0-32.0); Mean Platelet Vol. 9.6 fl (6.2-12.0); Monocyte# 1.23 X10^3/uL; Monocyte% 5.8 % (0-10); NRBC Flagged by Analyzer 0 % (0-5); Neutrophil # 17.88 X10^3/uL (2.7-7.7); Platelet Count 484 K/mm3 (150-450); RBC Distribution Width CV 14.3 % (11.6-14.6); RBC Distribution Width SD 47.4 fl (35.1-43.9); White Blood Count 21.3 K/mm3 (4.4-11.0)
[2022-05-23] MEDS: Ipratropium 0.5 MG/2.5 ML SOLUTION INHALATION ×3 (06:57→19:22)
[2022-05-23 07:13] LABS: Anion Gap 7 (5-15); BUN 19 mg/dL (7-18); BUN/Creat Ratio 41.1 RATIO (10-20); Chloride 104 mmol/L (98-107); Creatinine, Serum 0.46 mg/dL (0.55-1.02); EST Glomerular Filtration Rate 147 mL/min (>60); Est Glom Filt Rate - Afr Amer 178 mL/min (>60); Estimated Creatinine Clearance 100.17 ml/min; Glucose 136 mg/dL (74-106); Phosphorus 2.1 mg/dL (2.5-4.9); Potassium 3.4 mmol/L (3.5-5.1); Sodium Level 133 mmol/L (136-145)
--- NOTE | 2022-05-23 07:53 | PN.HOSP_ITS ---
Reason for Visit Reason for Visit: Diagnoses Sepsis, unspecified organism (05/13/22) Candidal sepsis (05/13/22) Hypo-osmolality and hyponatremia (05/13/22) Hypokalemia (05/13/22) Metabolic encephalopathy (05/13/22) Unspecified atrial fibrillation (05/13/22) Cerebral infarction, unspecified (05/13/22) Hypotension, unspecified (05/13/22) Pneumonia, unspecified organism (05/13/22) Pneumonitis due to inhalation of food and vomit (05/13/22) Acute respiratory distress syndrome (05/13/22) Acute respiratory failure with hypoxia (05/13/22) Unilateral inguinal hernia, with obstruction, without gangrene, not specified as recurrent (05/13/22) Unilateral inguinal hernia, with obstruction, without gangrene, recurrent (05/13/22) Unspecified intestinal obstruction, unspecified as to partial versus complete obstruction (05/13/22) Acute kidney failure, unspecified (05/13/22) Cardiac murmur, unspecified (05/13/22) Altered mental status, unspecified (05/13/22) Severe sepsis with septic shock (05/13/22) Other specified abnormalities of plasma proteins (05/13/22) Personal history of other diseases of the digestive system (05/13/22) Other specified postprocedural states (05/13/22) Dependence on respirator [ventilator] status (05/13/22) Subjective Subjective Sitting up in bed initially working with speech therapy, reports she had some dairy which upset her stomach but prior to that did not have significant difficulties, denies nausea. Objective Data Objective Data Vital Signs: Vital Signs Temp Pulse Resp BP Pulse Ox O2 Del Method O2 Flow Rate 97.7 F L 102 H 16 140/92 H 97 Room Air 2 05/23/22 03:06 05/23/22 06:08 05/23/22 03:06 05/23/22 06:47 05/23/22 03:06 05/23/22 03:43 05/18/22 14:00 FiO2 35 05/16/22 08:00 Oxygen Flow Rate (L/min) 2 Oxygen Delivery Method Room Air Weight: 47.6 kg Body Mass Index (BMI) 19.3 Intake & Output: Intake and Output for Last 24 Hours 05/21/22 05/22/22 05/23/22 23:59 23:59 23:59 Intake Total 4874.33 / 4874.33 4247.92 / 4247.92 70 / 70 Output Total 2325 / 2325 3000 / 3000 1400 / 1400 Balance 2549.33 / 2549.33 1247.92 / 1247.92 -1330 / -1330 Lab / Micro Data Result Diagrams: 05/23/22 06:20 05/23/22 06:20 Labs: Laboratory Results - last 24 hr 05/22/22 01:45: POC Glucose 147 H 05/22/22 06:11: POC Glucose 139 H 05/22/22 11:58: POC Glucose 165 H 05/22/22 17:36: POC Glucose 173 H 05/23/22 00:10: POC Glucose 121 H 05/23/22 06:07: POC Glucose 124 H 05/23/22 06:20: WBC 21.3 H, RBC 3.70 L, Hgb 11.6 L, Hct 34.4 L, MCV 93.0, MCH 31.4, MCHC 33.7, RDW Std Deviation 47.4 H, RDW Coeff of Audrey 14.3, Plt Count 484 H, MPV 9.6, Immature Gran % (Auto) 1.600 H, Neut % (Auto) 84.0 H, Lymph % (Auto) 8.0 L, [place] % (Auto) 5.8, Eos % (Auto) 0.4, Baso % (Auto) 0.2, Absolute Neuts (auto) 17.9 H, Absolute Lymphs (auto) 1.70, Nucleated RBC % 0 05/23/22 06:20: Sodium 133 L, Potassium 3.4 L, Chloride 104, Carbon Dioxide 22.0, Anion Gap 7, BUN 19 H, Creatinine 0.46 L, Estim Creat Clear Calc 100.17, Est GFR (MDRD) Af Amer 178, Est GFR (MDRD) Non-Af 147, BUN/Creatinine Ratio 41.1 H, Glucose 136 H, Calcium 8.0 L, Phosphorus 2.1 L, Magnesium 2.0 Micro: Microbiology 05/20/22 08:17 Blood Culture (Wb) - Anticubital Right Blood Culture - Preliminary No growth in 48 hours. 05/14/22 05:55 Blood Culture (Wb) - Left Forearm Blood Culture - Preliminary Presumptive C albicans 05/14/22 05:35 Blood Culture (Wb) - Right Forearm Blood Culture - Final No growth in 5 days. 05/12/22 22:50 Blood Culture (Wb) - Chest Blood Culture - Final No growth in 5 days. 05/12/22 22:29 Blood Culture (Wb) - Right Wrist Blood Culture - Final No growth in 5 days. 05/14/22 11:30 Urine Catheter - Isbell Urine Culture - Final Culture exhibits no growth. 05/13/22 09:30 Sputum, Induced/Lukens Gram Stain - Final 05/13/22 09:30 Sputum, Induced/Lukens Respiratory Culture - Final Presumptive C albicans 05/12/22 22:30 Urine, Catheterized Urine Culture - Final Culture exhibits no growth. 05/13/22 00:46 Urine Catheter - Catheter Legionella Antigen - Final 05/13/22 00:46 Urine Catheter - Catheter Streptococcus pneumoniae Antigen (M - Final 05/12/22 22:30 Nasal Secretion SARS-CoV-2 & FLU Antigen (Rapid) - Final Rhythm Strip Rhythm Strip: In and out of sinus rhythm Physical Exam Narrative General: Alert, very thin HEENT: Atraumatic, normocephalic Eyes: Anicteric, normal conjunctiva, extraocular movements grossly intact Neck: Supple Respiratory: normal respiratory effort Cardiovascular: Regular rate GI: Soft, nontender, nondistended Extremities: No edema Musculoskeletal: Moving all extremities Neuro: No overt focal neurological deficits Skin: No rashes appreciated Psych: Cooperative Assessment & Plan Assessment/Plan (1) Candidemia: (2) Acute CVA (cerebrovascular accident): (3) Altered mental status: PLAN: Plan #Acute CVA -After extubation had left-sided hemiparesis -CT of the brain showed large areas of abnormal edema in the parietal occipital lobes with smaller regions of abnormal edema in the cerebellum concerning for large acute infarctions versus hepatic encephalopathy. -CTA head and neck showed no evidence of hemodynamic currently significant stenosis -[facility] telestroke concerned for bilat ischemic stroke, neuro rec holding AC initially even w/ afib and start asa -high intensity statin -PT/OT -MRI of the brain showed large areas of restricted diffusion in the bilateral posterior cerebral hemispheres concerning for large acute infarct and small bilateral cerebellar infarcts as well as small acute lacunar infarct in the bilateral basal ganglia. -echo showed normal left ventricular size with normal left ventricular systolic function and EF of 65% with negative bubble study. -Now on therapeutic Lovenox #Candidemia: -blood culture positive for presumptive rocky albicans. ID consulted. -on IV fluconazole as per ID. -repeat blood cultures ordered and pending -MIKO ordered; per cardiology, to be done Tuesday #Acute hypoxic respiratory failure due to aspiration pneumonia and ARDS -S/p extubation -Sputum culture is negative -s/p Vanco and Zosyn #Afib -heart rate is improving.off cardizem drip -now on therapeutic lovenox since it has been ~ 1 week since she was diagnosed with the stroke. -on metoprolol 12.5mg bid #Small bowel obstruction and incarcerated hernia -s/p exploratory laparotomy -general surgery on board. -on tube feeds -management as per general surgery -NG tube in place #DVT ppx: Therapeutic Lovenox Silvana Dennis MD Time spent in the patient's overall evaluation,decision-making process, review of diagnostic data, adjustment of management, discussion with other providers, nursing nursing and ancillary staff involved in patient's care documentation, 60 minutes Charges/Coding Visit Charges Inpatient E&M: 34059 Subs Hosp L2
[2022-05-23] MEDS: dexAMETHasone 4 MG/ML Vial IV (08:48)
[2022-05-23] MEDS: Enoxaparin 60 MG/0.6 ML Syringe 50 MG SC ×2 (08:50→21:18)
[2022-05-23] MEDS: 0.9% Saline Lock 10 ML Syringe IV ×3 (08:51→12:25)
[2022-05-23] MEDS: Metoprolol Tartrate 25 MG Tablet 12.5 MG NG ×2 (08:52→20:57)
[2022-05-23] MEDS: Potassium Chloride Oral Tablet 20 MEQ 40 MEQ PO (08:52)
[2022-05-23] MEDS: Menthol/Lanolin/Calamine/Znox 113 GM Tube 1 APPLIC TOPICAL ×2 (08:57→20:56)
--- NOTE | 2022-05-23 10:45 | PN.SURG_ITS ---
Subjective Subjective notes slight abdominal pain - points to epigastrium passing flatus, can't remember when she had bowel movement Objective Data Objective Data Vital Signs: Vital Signs Temp Pulse Resp BP Pulse Ox O2 Del Method O2 Flow Rate 97.8 F 122 H 16 139/99 H 99 Room Air 2 05/23/22 08:29 05/23/22 08:52 05/23/22 08:29 05/23/22 08:29 05/23/22 08:29 05/23/22 08:29 05/18/22 14:00 FiO2 35 05/16/22 08:00 Oxygen Flow Rate (L/min) 2 Oxygen Delivery Method Room Air Weight: 47.6 kg Body Mass Index (BMI) 19.3 Intake & Output: Intake and Output for Last 24 Hours 05/21/22 05/22/22 05/23/22 23:59 23:59 23:59 Intake Total 4874.33 / 4874.33 4247.92 / 4247.92 1060 / 1060 Output Total 2325 / 2325 3000 / 3000 1400 / 1400 Balance 2549.33 / 2549.33 1247.92 / 1247.92 -340 / -340 Lab / Micro Data Attestation: I reviewed the patient's lab results. Result Diagrams: 05/23/22 06:20 05/23/22 06:20 Labs: Laboratory Results - last 24 hr 05/22/22 06:11: POC Glucose 139 H 05/22/22 11:58: POC Glucose 165 H 05/22/22 17:36: POC Glucose 173 H 05/23/22 00:10: POC Glucose 121 H 05/23/22 06:07: POC Glucose 124 H 05/23/22 06:20: WBC 21.3 H, RBC 3.70 L, Hgb 11.6 L, Hct 34.4 L, MCV 93.0, MCH 31.4, MCHC 33.7, RDW Std Deviation 47.4 H, RDW Coeff of Audrey 14.3, Plt Count 484 H, MPV 9.6, Immature Gran % (Auto) 1.600 H, Neut % (Auto) 84.0 H, Lymph % (Auto) 8.0 L, [place] % (Auto) 5.8, Eos % (Auto) 0.4, Baso % (Auto) 0.2, Absolute Neuts (auto) 17.9 H, Absolute Lymphs (auto) 1.70, Nucleated RBC % 0 05/23/22 06:20: Sodium 133 L, Potassium 3.4 L, Chloride 104, Carbon Dioxide 22.0, Anion Gap 7, BUN 19 H, Creatinine 0.46 L, Estim Creat Clear Calc 100.17, Est GFR (MDRD) Af Amer 178, Est GFR (MDRD) Non-Af 147, BUN/Creatinine Ratio 41.1 H, Glucose 136 H, Calcium 8.0 L, Phosphorus 2.1 L, Magnesium 2.0 Micro: Microbiology 05/20/22 08:17 Blood Culture (Wb) - Anticubital Right Blood Culture - Preliminary No growth in 48 hours. 05/14/22 05:55 Blood Culture (Wb) - Left Forearm Blood Culture - Preliminary Presumptive C albicans 05/14/22 05:35 Blood Culture (Wb) - Right Forearm Blood Culture - Final No growth in 5 days. 05/12/22 22:50 Blood Culture (Wb) - Chest Blood Culture - Final No growth in 5 days. 05/12/22 22:29 Blood Culture (Wb) - Right Wrist Blood Culture - Final No growth in 5 days. 05/14/22 11:30 Urine Catheter - Isbell Urine Culture - Final Culture exhibits no growth. 05/13/22 09:30 Sputum, Induced/Lukens Gram Stain - Final 05/13/22 09:30 Sputum, Induced/Lukens Respiratory Culture - Final Presumptive C albicans 05/12/22 22:30 Urine, Catheterized Urine Culture - Final Culture exhibits no growth. 05/13/22 00:46 Urine Catheter - Catheter Legionella Antigen - Final 05/13/22 00:46 Urine Catheter - Catheter Streptococcus pneumoniae Antigen (M - Final 05/12/22 22:30 Nasal Secretion SARS-CoV-2 & FLU Antigen (Rapid) - Final Rhythm Strip Rhythm Strip: In and out of sinus rhythm Physical Exam Const alert and oriented x3 Neck supple Resp normal respiratory effort Effort and Inspection: able to speak in complete sentences GI GI Narrative: soft, protuberant (unchanged from my last exam), patient points to tenderness in hypogastrium but no peritoneal signs Assessment & Plan Assessment/Plan (1) S/P exploratory laparotomy: PLAN: continue present therapy PLAN: Plan see above
[2022-05-23] MEDS: Insulin Lispro 100 UNIT/ML INSULN.PEN SC ×2 (12:26→18:08)
[2022-05-23 12:45] LABS: Bedside Glucose 162 mg/dL (74-106)
[2022-05-23] MEDS: Vital AF 1.2 Cal Liquid 1,000 ML 45 ML GT (17:03)
[2022-05-23 18:31] LABS: Bedside Glucose 177 mg/dL (74-106)
[2022-05-24] VITALS (13 sets, daily range): BP systolic 111–155; BP diastolic 75–98; PULSE 94–112; RESP 16–24; TEMP 36.3–37.1; O2SAT 96–100; BMI 18.2
[2022-05-24 01:31] LABS: Bedside Glucose 123 mg/dL (74-106)
[2022-05-24 05:50] LABS: Absolute Lymphocyte Count 2.15 X10^3/uL (0.83-4.51); Absolute Neutrophil Count 14.7 X10^3/uL (2.0-7.7); Basophil# 0.05 X10^3/uL; Basophil% 0.3 % (0-1); Eosinophil# 0.08 X10^3/uL; Eosinophils% 0.4 % (0-5); Hematocrit 31.1 % (37-47); Hemoglobin 10.1 g/dL (12.0-15.0); Lymphocyte # 2.15 X10^3/ul (0.83-4.51); Lymphocyte % 11.5 % (19-41); Mean Corp Hgb Conc 32.5 g/dL (32-36); Mean Corpuscular Hgb 30.9 pg (27.0-32.0); Mean Corpuscular Volume 95.1 fL (81-99); Mean Platelet Vol. 9.6 fl (6.2-12.0); Monocyte# 1.41 X10^3/uL; Monocyte% 7.5 % (0-10); NRBC Flagged by Analyzer 0 % (0-5); Neutrophil # 14.74 X10^3/uL (2.7-7.7); Neutrophil % 78.6 % (47-70); Platelet Count 516 K/mm3 (150-450); RBC Distribution Width CV 14.7 % (11.6-14.6); RBC Distribution Width SD 48.9 fl (35.1-43.9); Red Blood Count 3.27 M/mm3 (4.2-5.4); White Blood Count 18.7 K/mm3 (4.4-11.0)
[2022-05-24 06:48] LABS: Anion Gap 6 (5-15); BUN 21 mg/dL (7-18); BUN/Creat Ratio 45.1 RATIO (10-20); Calcium,Total 8.2 mg/dL (8.5-10.1); Chloride 104 mmol/L (98-107); Creatinine, Serum 0.47 mg/dL (0.55-1.02); EST Glomerular Filtration Rate 146 mL/min (>60); Est Glom Filt Rate - Afr Amer 176 mL/min (>60); Estimated Creatinine Clearance 92.48 ml/min; Glucose 100 mg/dL (74-106); Magnesium 1.6 mg/dL (1.6-2.6); Phosphorus 3.2 mg/dL (2.5-4.9); Potassium 3.8 mmol/L (3.5-5.1); Sodium Level 133 mmol/L (136-145)
[2022-05-24] MEDS: Ipratropium 0.5 MG/2.5 ML SOLUTION INHALATION ×3 (06:58→18:52)
--- NOTE | 2022-05-24 08:00 | ECHOTEE_ITS ---
Reason For Study: Emboli Medication MIKO probe 6VT-D (SN [id number]) passed with minimal difficulty. No complications were noted. Cetacaine Topical Zoar given X3 orally. Versed 3 mg given slow IVP. Fentanyl 50 mcg given slow IVP. Performed a rapid injection of agitated mix of 9 cc saline and 1cc air to assess for atrial septal defect. Left Ventricle Normal LV size. Left ventricular systolic function is normal. The estimated ejection fraction is 60 %. No regional wall motion abnormalities noted. Right Ventricle Normal RV size. Normal systolic function. Atria Bubble contrast study negative for right to left interatrial shunt. Normal left atrium. No thrombus is detected in the left atrial appendage. Normal right atrium. Mitral Valve Normal mitral valve. Mild (1+) eccentric mitral valve insufficiency. Tricuspid Valve Normal tricuspid valve. Mild tricuspid valve insufficiency. Aortic Valve Trisinus/trileaflet aortic valve. Pulmonic Valve Normal pulmonic valve. Pericardium No pericardial effusion. ECHO/Echo Transesophageal (MIKO) Interpretation Summary Normal LV size. Left ventricular systolic function is normal. The estimated ejection fraction is 60 %. No thrombus is detected in the left atrial appendage. Bubble contrast study negative for right to left interatrial shunt. Ordering Physician: Lucinda Fu Referring Physician: Lance Daley Performed By: Alexandru Robles RCS
[2022-05-24 08:20] LABS: Bedside Glucose 102 mg/dL (74-106)
--- NOTE | 2022-05-24 08:44 | PCM.PN.SRG ---
Subjective Subjective Pt currently getting MIKO. Pt has more verbal over the weekend according to notes. Questionable new bulge at incision on check out. Patient does confirm discomfort at incision. Objective Data Objective Data Vital Signs: Vital Signs Temp Pulse Resp BP Pulse Ox O2 Del Method O2 Flow Rate 97.6 F L 112 H 24 H 155/97 H 96 Room Air 2 05/24/22 02:45 05/24/22 07:01 05/24/22 07:01 05/24/22 02:45 05/24/22 07:01 05/24/22 07:01 05/18/22 14:00 FiO2 35 05/16/22 08:00 Oxygen Flow Rate (L/min) 2 Oxygen Delivery Method Room Air Weight: 98 lb 15.801 oz Body Mass Index (BMI) 18.2 Intake & Output: Intake and Output for Last 24 Hours 05/22/22 05/23/22 05/24/22 23:59 23:59 23:59 Intake Total 4247.92 / 4247.92 4228.5833 / 4228.5833 1338.25 / 1338.25 Output Total 3000 / 3000 2925 / 2925 650 / 650 Balance 1247.92 / 1247.92 1303.5833 / 1303.5833 688.25 / 688.25 Lab / Micro Data Result Diagrams: 05/24/22 05:00 05/24/22 05:00 Labs: Laboratory Results - last 24 hr 05/23/22 12:20: POC Glucose 162 H 05/23/22 18:05: POC Glucose 177 H 05/24/22 01:07: POC Glucose 123 H 05/24/22 05:00: WBC 18.7 H, RBC 3.27 L, Hgb 10.1 L, Hct 31.1 L, MCV 95.1, MCH 30.9, MCHC 32.5, RDW Std Deviation 48.9 H, RDW Coeff of Audrey 14.7 H, Plt Count 516 H, MPV 9.6, Immature Gran % (Auto) 1.700 H, Neut % (Auto) 78.6 H, Lymph % (Auto) 11.5 L, [place] % (Auto) 7.5, Eos % (Auto) 0.4, Baso % (Auto) 0.3, Absolute Neuts (auto) 14.7 H, Absolute Lymphs (auto) 2.15, Nucleated RBC % 0 05/24/22 05:00: Sodium 133 L, Potassium 3.8, Chloride 104, Carbon Dioxide 23.0, Anion Gap 6, BUN 21 H, Creatinine 0.47 L, Estim Creat Clear Calc 92.48, Est GFR (MDRD) Af Amer 176, Est GFR (MDRD) Non-Af 146, BUN/Creatinine Ratio 45.1 H, Glucose 100, Calcium 8.2 L, Phosphorus 3.2, Magnesium 1.6 05/24/22 05:30: POC Glucose 102 Micro: Microbiology 05/21/22 14:07 Blood Culture (Wb) - Anticubital Right Blood Culture - Preliminary No growth in 48 hours. 05/20/22 08:17 Blood Culture (Wb) - Anticubital Right Blood Culture - Preliminary No growth in 48 hours. 05/14/22 05:55 Blood Culture (Wb) - Left Forearm Blood Culture - Preliminary Presumptive C albicans 05/14/22 05:35 Blood Culture (Wb) - Right Forearm Blood Culture - Final No growth in 5 days. 05/12/22 22:50 Blood Culture (Wb) - Chest Blood Culture - Final No growth in 5 days. 05/12/22 22:29 Blood Culture (Wb) - Right Wrist Blood Culture - Final No growth in 5 days. 05/14/22 11:30 Urine Catheter - Isbell Urine Culture - Final Culture exhibits no growth. 05/13/22 09:30 Sputum, Induced/Lukens Gram Stain - Final 05/13/22 09:30 Sputum, Induced/Lukens Respiratory Culture - Final Presumptive C albicans 05/12/22 22:30 Urine, Catheterized Urine Culture - Final Culture exhibits no growth. 05/13/22 00:46 Urine Catheter - Catheter Legionella Antigen - Final 05/13/22 00:46 Urine Catheter - Catheter Streptococcus pneumoniae Antigen (M - Final 05/12/22 22:30 Nasal Secretion SARS-CoV-2 & FLU Antigen (Rapid) - Final Rhythm Strip Rhythm Strip: In and out of sinus rhythm Physical Exam Const Constitutional Narrative: More alert responds verbally to her name, follows commands the right upper extremity not following commands with the left or bilateral lower extremities. Resp normal respiratory effort GI GI Narrative: Patient's inferior umbilical incision firm, tender unable to reduce question if this is postop or if it could be an early hernia we will check CT abdomen pelvis. No hernia in the left groin on exam Inspection: Negative for abdominal distention Extremity Extremity Narrative: Patient follows commands the right upper extremity, but not with the left or bilateral lower extremities. Assessment & Plan Assessment/Plan (1) S/P exploratory laparotomy: (2) Recurrent inguinal hernia of left side with obstruction: (3) Septic shock: (4) Aspiration pneumonia: (5) Acute respiratory failure with hypoxia: (6) Acute hypokalemia: (7) ROSALIE (acute kidney injury): (8) Acute hyponatremia: (9) Acute CVA (cerebrovascular accident): (10) Candidemia: PLAN: Plan Pt currently getting MIKO--NPO since midnight. speech continue to follow pt-since she is more awake this weekend will await swallow evals--NG in place currently. Acute CVA-continue exams--more verbal over weekend per notes, PT/OT WBC 18.6, continue IV-Per ID-- abx-fluconazole- / blood cultures did show Mariana--repeat currently negative Lovenox/PPI Addendum:. Patient back from MIKO. Patient does respond verbally to her name is more alert. Still unable to move the left upper extremity. Patient did not completely answer when asked if she had any abdominal pain. Her incision is indurated attempt to push did not get any reduction unsure if this is induration postop or anything more. Patient has been tolerating tube feed prior to midnight at 45 cc an hour with residuals of only 20. Patient is also had multiple liquid bowel movements overnight and just prior to her MIKO. We will plan to get a CT abdomen pelvis with no contrast to take a look at this area. Tahmina Wayne M.D. Pager: [phone] [facility] [address] [place] [address], [facility], [address] [place] [address] Office: [phone]
[2022-05-24] MEDS: Enoxaparin 60 MG/0.6 ML Syringe 50 MG SC ×2 (09:25→23:21)
[2022-05-24] MEDS: 0.9% Saline Lock 10 ML Syringe IV (09:26)
[2022-05-24] MEDS: Metoprolol Tartrate 25 MG Tablet 12.5 MG NG ×2 (09:26→23:21)
[2022-05-24] MEDS: Menthol/Lanolin/Calamine/Znox 113 GM Tube 1 APPLIC TOPICAL ×2 (09:28→23:21)
[2022-05-24] MEDS: dexAMETHasone 4 MG/ML Vial 2 MG IV (09:28)
[2022-05-24] MEDS: Vital AF 1.2 Cal Liquid 1,000 ML 45 ML GT (09:43)
--- NOTE | 2022-05-24 10:35 | CT_ITS ---
STUDY: CT ABDOMEN AND PELVIS WITHOUT CONTRAST REASON FOR EXAM: Female, 56 years old. Diffuse abdominal pain. RADIATION DOSAGE (If Supplied By Facility): CTDIvol = ( 5.41 ) mGy, DLP = ( 255.22 ) mGycm TECHNIQUE: Transaxial images were obtained from the dome of the diaphragm to the symphysis pubis without oral contrast, and without intravenous contrast. Sagittal and coronal images were reconstructed. Individualized dose optimization techniques were used for this CT. COMPARISON: Comparison is made with prior study dated May 13, 2022. FINDINGS: Bibasilar patchy infiltrates worse at the right lung base. No orogastric tube is seen with the tip in the stomach. The visualized portions of the heart are within normal limits. Normal liver. Normal gallbladder and extrahepatic biliary system. Normal spleen. Normal pancreas. Normal bilateral adrenal glands. Normal right kidney. Normal left kidney. Normal visualized stomach. Normal small intestine. Surgical anastomosis is seen in the left lower quadrant. Fluid distention of the descending colon. There is diffuse atherosclerotic calcification of the abdominal aorta, without a demonstrated aneurysm. Normal inferior vena cava. Normal retroperitoneum. A Isbell catheter is seen within a decompressed urinary bladder. There is a 4 cm x 2.8 cm soft tissue density in the left anterior abdominal wall just distal to the umbilicus. This most likely represents a postoperative hematoma within the subcutaneous fat. Increased markings are seen in the surrounding subcutaneous fat most likely postsurgical in nature. There are diffuse degenerative changes of the visualized lumbar spine. CT/Abdomen/Pelvis without Cont IMPRESSION: Bibasilar pulmonary infiltrates worse on the right side although these are not improved as compared to prior study. Surgical anastomosis seen in the left lower quadrant. Findings suggestive of postoperative hematoma in the subcutaneous tissues just distal to the umbilicus on the left side of the midline with the increased stranding suggestive of postoperative changes. Electronically Signed: Alton Gonzales MD at 11:16 EDT ,
--- NOTE | 2022-05-24 10:48 | PCM.PN.HOSP ---
Reason for Visit Reason for Visit: Diagnoses Sepsis, unspecified organism (05/13/22) Candidal sepsis (05/13/22) Hypo-osmolality and hyponatremia (05/13/22) Hypokalemia (05/13/22) Metabolic encephalopathy (05/13/22) Unspecified atrial fibrillation (05/13/22) Cerebral infarction, unspecified (05/13/22) Hypotension, unspecified (05/13/22) Pneumonia, unspecified organism (05/13/22) Pneumonitis due to inhalation of food and vomit (05/13/22) Acute respiratory distress syndrome (05/13/22) Acute respiratory failure with hypoxia (05/13/22) Unilateral inguinal hernia, with obstruction, without gangrene, not specified as recurrent (05/13/22) Unilateral inguinal hernia, with obstruction, without gangrene, recurrent (05/13/22) Unspecified intestinal obstruction, unspecified as to partial versus complete obstruction (05/13/22) Acute kidney failure, unspecified (05/13/22) Cardiac murmur, unspecified (05/13/22) Altered mental status, unspecified (05/13/22) Severe sepsis with septic shock (05/13/22) Other specified abnormalities of plasma proteins (05/13/22) Personal history of other diseases of the digestive system (05/13/22) Other specified postprocedural states (05/13/22) Dependence on respirator [ventilator] status (05/13/22) Subjective Subjective This a.m. reported her belly was bothering her slightly but she was confused and kept referring to Mr. Prado. For MIKO today Objective Data Objective Data Vital Signs: Vital Signs Temp Pulse Resp BP Pulse Ox O2 Del Method O2 Flow Rate 98.4 F 100 18 127/90 H 97 Room Air 2 05/24/22 10:20 05/24/22 10:20 05/24/22 10:20 05/24/22 10:20 05/24/22 10:20 05/24/22 10:20 05/18/22 14:00 FiO2 35 05/16/22 08:00 Oxygen Flow Rate (L/min) 2 Oxygen Delivery Method Room Air Weight: 44.9 kg Body Mass Index (BMI) 18.2 Intake & Output: Intake and Output for Last 24 Hours 03/05/23/22 05/24/22 23:59 23:59 23:59 Intake Total 4247.92 / 4247.92 4228.5833 / 4228.5833 1617.67 / 1617.67 Output Total 3000 / 3000 2925 / 2925 650 / 650 Balance 1247.92 / 1247.92 1303.5833 / 1303.5833 967.67 / 967.67 Lab / Micro Data Result Diagrams: 05/24/22 05:00 05/24/22 05:00 Labs: Laboratory Results - last 24 hr 05/23/22 12:20: POC Glucose 162 H 05/23/22 18:05: POC Glucose 177 H 05/24/22 01:07: POC Glucose 123 H 05/24/22 05:00: WBC 18.7 H, RBC 3.27 L, Hgb 10.1 L, Hct 31.1 L, MCV 95.1, MCH 30.9, MCHC 32.5, RDW Std Deviation 48.9 H, RDW Coeff of Audrey 14.7 H, Plt Count 516 H, MPV 9.6, Immature Gran % (Auto) 1.700 H, Neut % (Auto) 78.6 H, Lymph % (Auto) 11.5 L, [place] % (Auto) 7.5, Eos % (Auto) 0.4, Baso % (Auto) 0.3, Absolute Neuts (auto) 14.7 H, Absolute Lymphs (auto) 2.15, Nucleated RBC % 0 05/24/22 05:00: Sodium 133 L, Potassium 3.8, Chloride 104, Carbon Dioxide 23.0, Anion Gap 6, BUN 21 H, Creatinine 0.47 L, Estim Creat Clear Calc 92.48, Est GFR (MDRD) Af Amer 176, Est GFR (MDRD) Non-Af 146, BUN/Creatinine Ratio 45.1 H, Glucose 100, Calcium 8.2 L, Phosphorus 3.2, Magnesium 1.6 05/24/22 05:30: POC Glucose 102 Micro: Microbiology 05/21/22 14:07 Blood Culture (Wb) - Anticubital Right Blood Culture - Preliminary No growth in 48 hours. 05/20/22 08:17 Blood Culture (Wb) - Anticubital Right Blood Culture - Preliminary No growth in 48 hours. 05/14/22 05:55 Blood Culture (Wb) - Left Forearm Blood Culture - Preliminary Presumptive C albicans 05/14/22 05:35 Blood Culture (Wb) - Right Forearm Blood Culture - Final No growth in 5 days. 05/12/22 22:50 Blood Culture (Wb) - Chest Blood Culture - Final No growth in 5 days. 05/12/22 22:29 Blood Culture (Wb) - Right Wrist Blood Culture - Final No growth in 5 days. 05/14/22 11:30 Urine Catheter - Isbell Urine Culture - Final Culture exhibits no growth. 05/13/22 09:30 Sputum, Induced/Lukens Gram Stain - Final 05/13/22 09:30 Sputum, Induced/Lukens Respiratory Culture - Final Presumptive C albicans 05/12/22 22:30 Urine, Catheterized Urine Culture - Final Culture exhibits no growth. 05/13/22 00:46 Urine Catheter - Catheter Legionella Antigen - Final 05/13/22 00:46 Urine Catheter - Catheter Streptococcus pneumoniae Antigen (M - Final 05/12/22 22:30 Nasal Secretion SARS-CoV-2 & FLU Antigen (Rapid) - Final Radiography Diagnostic Testing: Radiology Impression Transesophageal Echocardiogram 05/24/22 08:00 Interpretation Summary Normal LV size. Left ventricular systolic function is normal. The estimated ejection fraction is 60 %. No thrombus is detected in the left atrial appendage. Bubble contrast study negative for right to left interatrial shunt. Ordering Physician: Lucinda Fu Referring Physician: Lance Daley Performed By: Alexandru Robles RCS Rhythm Strip Rhythm Strip: In and out of sinus rhythm Physical Exam Narrative General: Alert, very thin, pleasantly confused this AM HEENT: Atraumatic, normocephalic Eyes: Anicteric, normal conjunctiva, extraocular movements grossly intact Neck: Supple Respiratory: normal respiratory effort Cardiovascular: Regular rate GI: Soft, nontender, nondistended Extremities: No edema Musculoskeletal: Moving all extremities Neuro: No overt focal neurological deficits Skin: No rashes appreciated Psych: Cooperative Assessment & Plan Assessment/Plan (1) Candidemia: (2) Acute CVA (cerebrovascular accident): (3) Altered mental status: PLAN: Plan #Acute CVA -After extubation had left-sided hemiparesis -CT of the brain showed large areas of abnormal edema in the parietal occipital lobes with smaller regions of abnormal edema in the cerebellum concerning for large acute infarctions versus hepatic encephalopathy. -CTA head and neck showed no evidence of hemodynamic currently significant stenosis -[facility] telestroke concerned for bilat ischemic stroke, neuro rec holding AC initially even w/ afib and start asa -high intensity statin -PT/OT -MRI of the brain showed large areas of restricted diffusion in the bilateral posterior cerebral hemispheres concerning for large acute infarct and small bilateral cerebellar infarcts as well as small acute lacunar infarct in the bilateral basal ganglia. -echo showed normal left ventricular size with normal left ventricular systolic function and EF of 65% with negative bubble study. -Now on therapeutic Lovenox -05/24: Remains on full dose Lovenox, mental status improving #Candidemia: -blood culture positive for presumptive rocky albicans. ID consulted. -on IV fluconazole as per ID. -repeat blood cultures ordered and pending -MIKO ordered; per cardiology, to be done Tuesday -05/24: MIKO no vegetations and repeat blood cultures no growth to date, will need 2 weeks of fluconazole, ID following. Remove CVC once alternate access can be established #Acute hypoxic respiratory failure due to aspiration pneumonia and ARDS -S/p extubation -Sputum culture is negative -s/p Vanco and Zosyn #Afib -heart rate is improving.off cardizem drip -now on therapeutic lovenox since it has been ~ 1 week since she was diagnosed with the stroke. -on metoprolol 12.5mg bid #Small bowel obstruction and incarcerated hernia -s/p exploratory laparotomy -general surgery on board. -on tube feeds -management as per general surgery -NG tube in place -05/24: Repeat CT today due to concern for bulge, findings only suggestive of postop hematoma in the subcu tissues suggestive of postop changes. Discussed with surgery, will continue to monitor at this time. Discussed nutrition moving forward and given improving mental status holding off on PEG tube, can consider Dobbhoff moving forward or if patient continues to improve hopefully will be able to maintain nutrition on her own. #DVT ppx: Therapeutic Lovenox Silvana Dennis MD Time spent in the patient's overall evaluation,decision-making process, review of diagnostic data, adjustment of management, discussion with other providers, nursing nursing and ancillary staff involved in patient's care documentation, 30 minutes Charges/Coding Visit Charges Inpatient E&M: 73088 Subs Hosp L2
[2022-05-24 12:11] LABS: Bedside Glucose 115 mg/dL (74-106)
--- NOTE | 2022-05-24 14:59 | PCM.PN.ID ---
Physical Exam Narrative Awake, feeling ok, no pain, no fever Const alert and no apparent distress General Appearance: cooperative Resp normal air movement and clear to auscultation bilaterally Cardio regular rate and regular rhythm GI soft to palpation, non-tender and non-distended Skin no rashes or lesions noted ID ID: Route of nutrition/ use of supplements: [] Nutritional Intake: [] IV Site: [] Isbell Catheter: [] Assessment & Plan Assessment/Plan (1) Acute CVA (cerebrovascular accident): (2) ROSALIE (acute kidney injury): (3) Candidemia: PLAN: 1 of 2 bcx from 05/14/22 with c.albicans, presumptive ID. TTE showed no veg. 05/19 started high dose fluconazole, 800mg once, then 400mg daily. Repeat bcx are all neg. Mental status dramatically improved. MIKO showed no veg. Plan on 2 weeks total of fluc. Recommend removing R neck CVC. Will follow
[2022-05-24 18:45] LABS: Bedside Glucose 143 mg/dL (74-106)
[2022-05-24 23:51] LABS: Bedside Glucose 130 mg/dL (74-106)
[2022-05-25] VITALS (9 sets, daily range): BP systolic 126–145; BP diastolic 85–93; PULSE 94–108; RESP 16–18; TEMP 36.4–36.7; O2SAT 95–100; BMI 18.5
[2022-05-25] MEDS: Ipratropium 0.5 MG/2.5 ML SOLUTION INHALATION ×2 (06:43→13:20)
[2022-05-25 07:00] LABS: Bedside Glucose 130 mg/dL (74-106)
--- NOTE | 2022-05-25 08:08 | PN.HOSP_ITS ---
Reason for Visit Reason for Visit: Diagnoses Sepsis, unspecified organism (05/13/22) Candidal sepsis (05/13/22) Hypo-osmolality and hyponatremia (05/13/22) Hypokalemia (05/13/22) Metabolic encephalopathy (05/13/22) Unspecified atrial fibrillation (05/13/22) Cerebral infarction, unspecified (05/13/22) Hypotension, unspecified (05/13/22) Pneumonia, unspecified organism (05/13/22) Pneumonitis due to inhalation of food and vomit (05/13/22) Acute respiratory distress syndrome (05/13/22) Acute respiratory failure with hypoxia (05/13/22) Unilateral inguinal hernia, with obstruction, without gangrene, not specified as recurrent (05/13/22) Unilateral inguinal hernia, with obstruction, without gangrene, recurrent (05/13/22) Unspecified intestinal obstruction, unspecified as to partial versus complete obstruction (05/13/22) Acute kidney failure, unspecified (05/13/22) Cardiac murmur, unspecified (05/13/22) Altered mental status, unspecified (05/13/22) Severe sepsis with septic shock (05/13/22) Other specified abnormalities of plasma proteins (05/13/22) Personal history of other diseases of the digestive system (05/13/22) Other specified postprocedural states (05/13/22) Dependence on respirator [ventilator] status (05/13/22) Subjective Subjective Minimal abdominal discomfort, denies shortness of breath, reports feeling better overall and is more alert this morning Objective Data Objective Data Vital Signs: Vital Signs Temp Pulse Resp BP Pulse Ox O2 Del Method O2 Flow Rate 98.1 F 100 18 138/93 H 95 Room Air 2 05/25/22 04:04 05/25/22 06:44 05/25/22 06:44 05/25/22 04:04 05/25/22 06:44 05/25/22 06:44 05/18/22 14:00 FiO2 35 05/16/22 08:00 Oxygen Flow Rate (L/min) 2 Oxygen Delivery Method Room Air Weight: 45.6 kg Body Mass Index (BMI) 18.5 Intake & Output: Intake and Output for Last 24 Hours 05/23/22 05/24/22 05/25/22 23:59 23:59 23:59 Intake Total 4228.5833 / 4228.5833 3455.75 / 3455.75 971.67 / 971.67 Output Total 2925 / 2925 3675 / 3675 550 / 550 Balance 1303.5833 / 1303.5833 -219.25 / -219.25 421.67 / 421.67 Lab / Micro Data Result Diagrams: 05/24/22 05:00 05/24/22 05:00 Labs: Laboratory Results - last 24 hr 05/24/22 05:30: POC Glucose 102 05/24/22 11:47: POC Glucose 115 H 05/24/22 18:09: POC Glucose 143 H 05/24/22 23:18: POC Glucose 130 H 05/25/22 06:00: POC Glucose 130 H Micro: Microbiology 05/14/22 05:55 Blood Culture (Wb) - Left Forearm Blood Culture - Final Presumptive C albicans 05/21/22 14:07 Blood Culture (Wb) - Anticubital Right Blood Culture - Preliminary No growth in 48 hours. 05/20/22 08:17 Blood Culture (Wb) - Anticubital Right Blood Culture - Preliminary No growth in 48 hours. 05/14/22 05:35 Blood Culture (Wb) - Right Forearm Blood Culture - Final No growth in 5 days. 05/12/22 22:50 Blood Culture (Wb) - Chest Blood Culture - Final No growth in 5 days. 05/12/22 22:29 Blood Culture (Wb) - Right Wrist Blood Culture - Final No growth in 5 days. 05/14/22 11:30 Urine Catheter - Isbell Urine Culture - Final Culture exhibits no growth. 05/13/22 09:30 Sputum, Induced/Lukens Gram Stain - Final 05/13/22 09:30 Sputum, Induced/Lukens Respiratory Culture - Final Presumptive C albicans 05/12/22 22:30 Urine, Catheterized Urine Culture - Final Culture exhibits no growth. 05/13/22 00:46 Urine Catheter - Catheter Legionella Antigen - Final 05/13/22 00:46 Urine Catheter - Catheter Streptococcus pneumoniae Antigen (M - Final 05/12/22 22:30 Nasal Secretion SARS-CoV-2 & FLU Antigen (Rapid) - Final Radiography Diagnostic Testing: Radiology Impression Transesophageal Echocardiogram 05/24/22 08:00 Interpretation Summary Normal LV size. Left ventricular systolic function is normal. The estimated ejection fraction is 60 %. No thrombus is detected in the left atrial appendage. Bubble contrast study negative for right to left interatrial shunt. Ordering Physician: Lucinda Fu Referring Physician: Lance Daley Performed By: Alexandru Robles RCS Abdomen/Pelvis CT 05/24/22 10:35 IMPRESSION: Bibasilar pulmonary infiltrates worse on the right side although these are not improved as compared to prior study. Surgical anastomosis seen in the left lower quadrant. Findings suggestive of postoperative hematoma in the subcutaneous tissues just distal to the umbilicus on the left side of the midline with the increased stranding suggestive of postoperative changes. Electronically Signed: Alton Gonzales MD at 11:16 EDT , Rhythm Strip Rhythm Strip: In and out of sinus rhythm Physical Exam Narrative General: Alert, more awake and better able to answer questions this morning HEENT: Atraumatic, normocephalic Eyes: Anicteric, normal conjunctiva, extraocular movements grossly intact Neck: Supple Respiratory: normal respiratory effort Cardiovascular: Regular rate GI: Soft, nontender, nondistended, mild induration around midline incision without erythema or pus Extremities: No edema Musculoskeletal: Moving all extremities Neuro: No overt focal neurological deficits Skin: No rashes appreciated Psych: Cooperative Assessment & Plan Assessment/Plan (1) Candidemia: (2) Acute CVA (cerebrovascular accident): (3) Altered mental status: PLAN: Plan #Acute CVA -After extubation had left-sided hemiparesis -CT of the brain showed large areas of abnormal edema in the parietal occipital lobes with smaller regions of abnormal edema in the cerebellum concerning for large acute infarctions versus hepatic encephalopathy. -CTA head and neck showed no evidence of hemodynamic currently significant stenosis -[facility] telestroke concerned for bilat ischemic stroke, neuro rec holding AC initially even w/ afib and start asa -high intensity statin -PT/OT -MRI of the brain showed large areas of restricted diffusion in the bilateral posterior cerebral hemispheres concerning for large acute infarct and small bila teral cerebellar infarcts as well as small acute lacunar infarct in the bilateral basal ganglia. -echo showed normal left ventricular size with normal left ventricular systolic function and EF of 65% with negative bubble study. -Now on therapeutic Lovenox -05/24: Remains on full dose Lovenox, mental status improving -05/25: NG remains in place, may need Dobbhoff or PEG tube if swallowing does not progress. Surgery on board. Continue speech therapy, PT, OT and discharge planning. #Candidemia: -blood culture positive for presumptive rocky albicans. ID consulted. -on IV fluconazole as per ID. -repeat blood cultures ordered and pending -MIKO ordered; per cardiology, to be done Tuesday -05/24: MIKO no vegetations and repeat blood cultures no growth to date, will need 2 weeks of fluconazole, ID following. Remove CVC once alternate access can be established -05/25: Fluconazole for 2 weeks. CVC removed #Acute hypoxic respiratory failure due to aspiration pneumonia and ARDS -S/p extubation -Sputum culture is negative -s/p Vanco and Zosyn #Afib -heart rate is improving.off cardizem drip -now on therapeutic lovenox since it has been ~ 1 week since she was diagnosed with the stroke. -on metoprolol 12.5mg bid #Small bowel obstruction and incarcerated hernia -s/p exploratory laparotomy -general surgery on board. -on tube feeds -management as per general surgery -NG tube in place -05/24: Repeat CT today due to concern for bulge, findings only suggestive of postop hematoma in the subcu tissues suggestive of postop changes. Discussed with surgery, will continue to monitor at this time. Discussed nutrition moving forward and given improving mental status holding off on PEG tube, can consider Dobbhoff moving forward or if patient continues to improve hopefully will be able to maintain nutrition on her own. #DVT ppx: Therapeutic Lovenox Silvana Dennis, MD Time spent in the patient's overall evaluation,decision-making process, review of diagnostic data, adjustment of management, discussion with other providers, nursing nursing and ancillary staff involved in patient's care documentation, 30 minutes Charges/Coding Visit Charges Inpatient E&M: 11815 Subs Hosp L2
[2022-05-25 08:27] LABS: Absolute Lymphocyte Count 2.76 X10^3/uL (0.83-4.51); Absolute Neutrophil Count 10.2 X10^3/uL (2.0-7.7); Basophil# 0.07 X10^3/uL; Basophil% 0.5 % (0-1); Eosinophil# 0.17 X10^3/uL; Eosinophils% 1.1 % (0-5); Hematocrit 30.7 % (37-47); Hemoglobin 9.9 g/dL (12.0-15.0); Lymphocyte # 2.76 X10^3/ul (0.83-4.51); Lymphocyte % 18.5 % (19-41); Mean Corp Hgb Conc 32.2 g/dL (32-36); Mean Corpuscular Volume 96.2 fL (81-99); Mean Platelet Vol. 9.2 fl (6.2-12.0); Monocyte# 1.39 X10^3/uL; Monocyte% 9.3 % (0-10); NRBC Flagged by Analyzer 0 % (0-5); Neutrophil # 10.21 X10^3/uL (2.7-7.7); Neutrophil % 68.3 % (47-70); Platelet Count 573 K/mm3 (150-450); RBC Distribution Width CV 14.9 % (11.6-14.6); RBC Distribution Width SD 50.9 fl (35.1-43.9); Red Blood Count 3.19 M/mm3 (4.2-5.4); White Blood Count 14.9 K/mm3 (4.4-11.0)
--- NOTE | 2022-05-25 08:46 | PN.SURG_ITS ---
Subjective Subjective Patient's right IJ was removed. Blood culture continue to be negative after the initial positive for Mariana. Patient does verbally answer questions after slight delay. Still only follows commands with the right upper extremity. CT abdomen pelvis did show a hematoma at the incision site. Patient was started on therapeutic Lovenox Tuesday. Objective Data Objective Data Vital Signs: Vital Signs Temp Pulse Resp BP Pulse Ox O2 Del Method O2 Flow Rate 98.1 F 108 H 16 126/90 H 98 Room Air 2 05/25/22 09:18 05/25/22 09:25 05/25/22 09:18 05/25/22 09:18 05/25/22 09:18 05/25/22 09:18 05/18/22 14:00 FiO2 35 05/16/22 08:00 Oxygen Flow Rate (L/min) 2 Oxygen Delivery Method Room Air Weight: 100 lb 8.493 oz Body Mass Index (BMI) 18.5 Intake & Output: Intake and Output for Last 24 Hours 05/23/22 05/24/22 05/25/22 23:59 23:59 23:59 Intake Total 4228.5833 / 4228.5833 3455.75 / 3455.75 1411.67 / 1411.67 Output Total 2925 / 2925 3675 / 3675 550 / 550 Balance 1303.5833 / 1303.5833 -219.25 / -219.25 861.67 / 861.67 Lab / Micro Data Result Diagrams: 05/25/22 08:12 05/25/22 08:12 Labs: Laboratory Results - last 24 hr 05/24/22 11:47: POC Glucose 115 H 05/24/22 18:09: POC Glucose 143 H 05/24/22 23:18: POC Glucose 130 H 05/25/22 06:00: POC Glucose 130 H 05/25/22 08:12: WBC 14.9 H, RBC 3.19 L, Hgb 9.9 L, Hct 30.7 L, MCV 96.2, MCH 31.0, MCHC 32.2, RDW Std Deviation 50.9 H, RDW Coeff of Audrey 14.9 H, Plt Count 573 H, MPV 9.2, Immature Gran % (Auto) 2.300 H, Neut % (Auto) 68.3, Lymph % ( Auto) 18.5 L, [place] % (Auto) 9.3, Eos % (Auto) 1.1, Baso % (Auto) 0.5, Absolute Neuts (auto) 10.2 H, Absolute Lymphs (auto) 2.76, Nucleated RBC % 0 05/25/22 08:12: Sodium 134 L, Potassium 3.9, Chloride 103, Carbon Dioxide 25.0, Anion Gap 6, BUN 21 H, Creatinine 0.53 L, Estim Creat Clear Calc 83.29, Est GFR (MDRD) Af Amer 152, Est GFR (MDRD) Non-Af 125, BUN/Creatinine Ratio 39.5 H, Glucose 108 H, Calcium 8.2 L, Magnesium 1.7 05/25/22 08:12: Phosphorus 2.5 Micro: Microbiology 05/20/22 08:17 Blood Culture (Wb) - Anticubital Right Blood Culture - Final No growth in 5 days. 05/14/22 05:55 Blood Culture (Wb) - Left Forearm Blood Culture - Final Presumptive C albicans 05/21/22 14:07 Blood Culture (Wb) - Anticubital Right Blood Culture - Preliminary No growth in 48 hours. 05/14/22 05:35 Blood Culture (Wb) - Right Forearm Blood Culture - Final No growth in 5 days. 05/12/22 22:50 Blood Culture (Wb) - Chest Blood Culture - Final No growth in 5 days. 05/12/22 22:29 Blood Culture (Wb) - Right Wrist Blood Culture - Final No growth in 5 days. 05/14/22 11:30 Urine Catheter - Isbell Urine Culture - Final Culture exhibits no growth. 05/13/22 09:30 Sputum, Induced/Lukens Gram Stain - Final 05/13/22 09:30 Sputum, Induced/Lukens Respiratory Culture - Final Presumptive C albicans 05/12/22 22:30 Urine, Catheterized Urine Culture - Final Culture exhibits no growth. 05/13/22 00:46 Urine Catheter - Catheter Legionella Antigen - Final 05/13/22 00:46 Urine Catheter - Catheter Streptococcus pneumoniae Antigen (M - Final 05/12/22 22:30 Nasal Secretion SARS-CoV-2 & FLU Antigen (Rapid) - Final Radiography Diagnostic Testing: Radiology Impression Abdomen/Pelvis CT 05/24/22 10:35 IMPRESSION: Bibasilar pulmonary infiltrates worse on the right side although these are not improved as compared to prior study. Surgical anastomosis seen in the left lower quadrant. Findings suggestive of postoperative hematoma in the subcutaneous tissues just distal to the umbilicus on the left side of the midline with the increased stranding suggestive of postoperative changes. Electronically Signed: Alton Gonzales MD at 11:16 EDT , Rhythm Strip Rhythm Strip: In and out of sinus rhythm Physical Exam Const Constitutional Narrative: More alert responds verbally to her name and answers simple questions appropriately after slight delay, follows commands the right upper extremity not following commands with the left or bilateral lower extremities. Resp normal respiratory effort GI GI Narrative: Patient's inferior umbilical incision firm, consistent with hematoma per CT and pelvis. Patient did have a small amount of oozing from the incision site which is dressed with 4 x 4 gauze. Extremity Extremity Narrative: Patient follows commands the right upper extremity, but not with the left or bilateral lower extremities. Assessment & Plan Assessment/Plan (1) S/P exploratory laparotomy: (2) Recurrent inguinal hernia of left side with obstruction: (3) Septic shock: (4) Aspiration pneumonia: (5) Acute respiratory failure with hypoxia: (6) Acute hypokalemia: (7) ROSALIE (acute kidney injury): (8) Acute hyponatremia: (9) Acute CVA (cerebrovascular accident): (10) Candidemia: PLAN: Plan Hematoma at incision- will continue to monitor as currently benefits of anticoagulation how weigh risk--small amount of oozing from incision continue to change gauze/monitor. mamadou goal TF- speech still recommending NPO-- will plan to discuss PEG with family. Acute CVA-continue exams-, PT/OT WBC 14.9, continue IV-Per ID-- abx-fluconazole- 1/2 blood cultures did show Mariana--repeat currently negative Lovenox/PPI Tahmina Wayne M.D. Pager: [phone] [facility] [address] [place] [address], Outpatient [facility]ilion, [address] [place] [address] Office: [phone]
[2022-05-25 09:05] LABS: Anion Gap 6 (5-15); BUN 21 mg/dL (7-18); BUN/Creat Ratio 39.5 RATIO (10-20); Calcium,Total 8.2 mg/dL (8.5-10.1); Chloride 103 mmol/L (98-107); Creatinine, Serum 0.53 mg/dL (0.55-1.02); EST Glomerular Filtration Rate 125 mL/min (>60); Est Glom Filt Rate - Afr Amer 152 mL/min (>60); Estimated Creatinine Clearance 83.29 ml/min; Glucose 108 mg/dL (74-106); Magnesium 1.7 mg/dL (1.6-2.6); Potassium 3.9 mmol/L (3.5-5.1); Sodium Level 134 mmol/L (136-145)
[2022-05-25 09:08] LABS: Phosphorus 2.5 mg/dL (2.5-4.9)
[2022-05-25] MEDS: Menthol/Lanolin/Calamine/Znox 113 GM Tube 1 APPLIC TOPICAL ×2 (09:23→22:57)
[2022-05-25] MEDS: Metoprolol Tartrate 25 MG Tablet 12.5 MG NG ×2 (09:25→22:57)
[2022-05-25] MEDS: dexAMETHasone 4 MG/ML Vial 2 MG IV (09:26)
[2022-05-25] MEDS: Enoxaparin 60 MG/0.6 ML Syringe 50 MG SC ×2 (09:27→22:57)
[2022-05-25] MEDS: Vital AF 1.2 Cal Liquid 1,000 ML 45 ML GT (11:42)
[2022-05-25 12:10] LABS: Bedside Glucose 141 mg/dL (74-106)
[2022-05-25] MEDS: 0.9% Saline Lock 10 ML Syringe IV (15:41)
[2022-05-25] MEDS: Insulin Lispro 100 UNIT/ML INSULN.PEN SC (18:09)
[2022-05-25 18:30] LABS: Bedside Glucose 155 mg/dL (74-106)
[2022-05-25 23:35] LABS: Bedside Glucose 120 mg/dL (74-106)
[2022-05-26] VITALS (7 sets, daily range): BP systolic 129–147; BP diastolic 84–102; PULSE 66–98; RESP 16–18; TEMP 36.1–36.7; O2SAT 95–100; BMI 18.3
[2022-05-26 05:10] LABS: Absolute Lymphocyte Count 2.33 X10^3/uL (0.83-4.51); Absolute Neutrophil Count 7.5 X10^3/uL (2.0-7.7); Basophil# 0.09 X10^3/uL; Basophil% 0.8 % (0-1); Eosinophil# 0.14 X10^3/uL; Eosinophils% 1.2 % (0-5); Hematocrit 34.1 % (37-47); Hemoglobin 10.2 g/dL (12.0-15.0); Lymphocyte # 2.33 X10^3/ul (0.83-4.51); Lymphocyte % 20.2 % (19-41); Mean Corp Hgb Conc 29.9 g/dL (32-36); Mean Corpuscular Hgb 32.1 pg (27.0-32.0); Mean Corpuscular Volume 107.2 fL (81-99); Mean Platelet Vol. 9.2 fl (6.2-12.0); Monocyte# 1.15 X10^3/uL; NRBC Flagged by Analyzer 0 % (0-5); Platelet Count 381 K/mm3 (150-450); RBC Distribution Width CV 15.5 % (11.6-14.6); RBC Distribution Width SD 60.7 fl (35.1-43.9); Red Blood Count 3.18 M/mm3 (4.2-5.4); White Blood Count 11.5 K/mm3 (4.4-11.0)
[2022-05-26 05:50] LABS: Anion Gap 11 (5-15); BUN 21 mg/dL (7-18); BUN/Creat Ratio 49.4 RATIO (10-20); Calcium,Total 8.3 mg/dL (8.5-10.1); Chloride 102 mmol/L (98-107); Creatinine, Serum 0.42 mg/dL (0.55-1.02); EST Glomerular Filtration Rate 162 mL/min (>60); Est Glom Filt Rate - Afr Amer 196 mL/min (>60); Estimated Creatinine Clearance 104.64 ml/min; Glucose 102 mg/dL (74-106); Potassium 4.4 mmol/L (3.5-5.1); Sodium Level 134 mmol/L (136-145)
[2022-05-26 06:05] LABS: Bedside Glucose 115 mg/dL (74-106)
--- NOTE | 2022-05-26 06:25 | NURSING ---
was on the floor and this nurse updated about patients liquid stool and that she has had 4 large liquid BM. This nurse also stated to that patients abdomen surgical site appears to be bigger then it was last night. patient was also bladder scanned and had 162 ml in.
[2022-05-26] MEDS: Enoxaparin 60 MG/0.6 ML Syringe 50 MG SC (08:40)
[2022-05-26] MEDS: 0.9% Saline Lock 10 ML Syringe IV (08:41)
[2022-05-26] MEDS: dexAMETHasone 4 MG/ML Vial 2 MG IV (08:41)
[2022-05-26] MEDS: Metoprolol Tartrate 25 MG Tablet 12.5 MG NG ×2 (08:45→23:07)
--- NOTE | 2022-05-26 09:05 | CASEMGMT ---
Addendum entered by Margarita Greenwood 05/26/22 14:59: SW called patient's sister Zita and let her know about physician wanting to talk with family about a peg tube. SW asked if Zita is okay with Enrike gathering the information and then passing it along to her. Zita was in agreement with this. Siddhartha patient's other brother walked into Zita's home so SW spoke with him telling him the same and he was in agreement with Enrike relaying information. They both state they agree with what Enrike feels is best for patient as that is what they all want. Margarita Greenwood METEOROLOGY FACULTY MEMBER QA LEAD Original Note: Physician asked SW who she should talk to about peg tube. SW called patient's brother Enrike and let him know the physician would like to talk with family about a peg tube. Enrike said he is on his way in to the hospital now. Gonsalo said he is okay with gathering information from physician and passing it along to Zita and Siddhartha instead of everyone coming into the hospital. Especially since everyone does not get along with Britany. SASHA then called Britany and explained physician wants to talk with family about a peg tube. SASHA let Britany know that Enrike will also be here. SASHA notified physician that both Enrike and Britany will be in around 10:15. SASHA updated RN. Margarita Greenwood METEOROLOGY FACULTY MEMBER QA LEAD
[2022-05-26] MEDS: Menthol/Lanolin/Calamine/Znox 113 GM Tube 1 APPLIC TOPICAL ×2 (09:21→22:35)
[2022-05-26] MEDS: Vital AF 1.2 Cal Liquid 1,000 ML 45 ML GT (09:29)
--- NOTE | 2022-05-26 09:35 | PN.HOSP_ITS ---
Reason for Visit Reason for Visit: Diagnoses Sepsis, unspecified organism (05/13/22) Candidal sepsis (05/13/22) Hypo-osmolality and hyponatremia (05/13/22) Hypokalemia (05/13/22) Metabolic encephalopathy (05/13/22) Unspecified atrial fibrillation (05/13/22) Cerebral infarction, unspecified (05/13/22) Hypotension, unspecified (05/13/22) Pneumonia, unspecified organism (05/13/22) Pneumonitis due to inhalation of food and vomit (05/13/22) Acute respiratory distress syndrome (05/13/22) Acute respiratory failure with hypoxia (05/13/22) Unilateral inguinal hernia, with obstruction, without gangrene, not specified as recurrent (05/13/22) Unilateral inguinal hernia, with obstruction, without gangrene, recurrent (05/13/22) Unspecified intestinal obstruction, unspecified as to partial versus complete obstruction (05/13/22) Acute kidney failure, unspecified (05/13/22) Cardiac murmur, unspecified (05/13/22) Altered mental status, unspecified (05/13/22) Severe sepsis with septic shock (05/13/22) Other specified abnormalities of plasma proteins (05/13/22) Personal history of other diseases of the digestive system (05/13/22) Other specified postprocedural states (05/13/22) Dependence on respirator [ventilator] status (05/13/22) Subjective Subjective Patient laying in bed, nurse said overnight she has been having liquid stools. She did also move her left arm slightly last night Objective Data Objective Data Vital Signs: Vital Signs Temp Pulse Resp BP Pulse Ox O2 Del Method O2 Flow Rate 97 F L 97 16 129/94 H 99 Room Air 2 05/26/22 03:40 05/26/22 08:45 05/26/22 03:40 05/26/22 08:45 05/26/22 03:40 05/26/22 03:40 05/18/22 14:00 FiO2 35 05/16/22 08:00 Oxygen Flow Rate (L/min) 2 Oxygen Delivery Method Room Air Weight: 45.4 kg Body Mass Index (BMI) 18.3 Intake & Output: Intake and Output for Last 24 Hours 05/24/22 05/25/22 05/26/22 23:59 23:59 23:59 Intake Total 3455.75 / 3455.75 2899.84 / 2899.84 2066.92 / 2066.92 Output Total 3675 / 3675 2175 / 2175 Balance -219.25 / -219.25 724.84 / 724.84 2065. / 2065.92 Lab / Micro Data Result Diagrams: 05/26/22 04:15 05/26/22 04:15 Labs: Laboratory Results - last 24 hr 05/25/22 11:41: POC Glucose 141 H 05/25/22 18:08: POC Glucose 155 H 05/25/22 23:08: POC Glucose 120 H 05/26/22 04:15: WBC 11.5 H, RBC 3.18 L, Hgb 10.2 L, Hct 34.1 L, MCV 107.2 H D, MCH 32.1 H, MCHC 29.9 L D, RDW Std Deviation 60.7 H, RDW Coeff of Audrey 15.5 H, Plt Count 381, MPV 9.2, Immature Gran % (Auto) 2.800 H, Neut % (Auto) 65.0, Lymph % (Auto) 20.2, [place] % (Auto) 10.0, Eos % (Auto) 1.2, Baso % (Auto) 0.8, Absolute Neuts (auto) 7.5, Absolute Lymphs (auto) 2.33, Nucleated RBC % 0 05/26/22 04:15: Sodium 134 L, Potassium 4.4, Chloride 102, Carbon Dioxide 21.0, Anion Gap 11, BUN 21 H, Creatinine 0.42 L, Estim Creat Clear Calc 104.64, Est GFR (MDRD) Af Amer 196, Est GFR (MDRD) Non-Af 162, BUN/Creatinine Ratio 49.4 H, Glucose 102, Calcium 8.3 L 05/26/22 05:46: POC Glucose 115 H Micro: Microbiology 05/20/22 08:17 Blood Culture (Wb) - Anticubital Right Blood Culture - Final No growth in 5 days. 05/14/22 05:55 Blood Culture (Wb) - Left Forearm Blood Culture - Final Presumptive C albicans 05/21/22 14:07 Blood Culture (Wb) - Anticubital Right Blood Culture - Preliminary No growth in 48 hours. 05/14/22 05:35 Blood Culture (Wb) - Right Forearm Blood Culture - Final No growth in 5 days. 05/12/22 22:50 Blood Culture (Wb) - Chest Blood Culture - Final No growth in 5 days. 05/12/22 22:29 Blood Culture (Wb) - Right Wrist Blood Culture - Final No growth in 5 days. 05/14/22 11:30 Urine Catheter - Isbell Urine Culture - Final Culture exhibits no growth. 05/13/22 09:30 Sputum, Induced/Lukens Gram Stain - Final 05/13/22 09:30 Sputum, Induced/Lukens Respiratory Culture - Final Presumptive C albicans 05/12/22 22:30 Urine, Catheterized Urine Culture - Final Culture exhibits no growth. 05/13/22 00:46 Urine Catheter - Catheter Legionella Antigen - Final 05/13/22 00:46 Urine Catheter - Catheter Streptococcus pneumoniae Antigen (M - Final 05/12/22 22:30 Nasal Secretion SARS-CoV-2 & FLU Antigen (Rapid) - Final Rhythm Strip Rhythm Strip: In and out of sinus rhythm Physical Exam Narrative General: Alert, more awake HEENT: Atraumatic, normocephalic Eyes: Anicteric, normal conjunctiva, extraocular movements grossly intact Neck: Supple Respiratory: normal respiratory effort Cardiovascular: Regular rate GI: Soft, no significant tenderness, nondistended, mild induration around midline incision without erythema or pus Extremities: No edema Musculoskeletal: Had more movement in left upper extremity Neuro: Left upper extremity weakness Skin: No rashes appreciated Psych: Cooperative Assessment & Plan Assessment/Plan (1) S/P exploratory laparotomy: (2) Recurrent inguinal hernia of left side with obstruction: (3) Septic shock: (4) Aspiration pneumonia: (5) Acute respiratory failure with hypoxia: (6) Acute hypokalemia: (7) ROSALIE (acute kidney injury): (8) Acute hyponatremia: (9) Acute CVA (cerebrovascular accident): (10) Candidemia: (11) Altered mental status: PLAN: Plan #Acute CVA -After extubation had left-sided hemiparesis -CT of the brain showed large areas of abnormal edema in the parietal occipital lobes with smaller regions of abnormal edema in the cerebellum concerning for large acute infarctions versus hepatic encephalopathy. -CTA head and neck showed no evidence of hemodynamic currently significant stenosis -[facility] telestroke concerned for bilat ischemic stroke, neuro rec holding AC initially even w/ afib and start asa -high intensity statin -PT/OT -MRI of the brain showed large areas of restricted diffusion in the bilateral posterior cerebral hemispheres concerning for large acute infarct and small bilateral cerebellar infarcts as well as small acute lacunar infarct in the bilateral basal ganglia. -echo showed normal left ventricular size with normal left ventricular systolic function and EF of 65% with negative bubble study. -Now on therapeutic Lovenox -05/24: Remains on full dose Lovenox, mental status improving -05/25: NG remains in place, may need Dobbhoff or PEG tube if swallowing does not progress. Surgery on board. Continue speech therapy, PT, OT and discharge planning. -05/26: Speech recommending n.p.o. still, surgery to discuss PEG with family #Candidemia: -blood culture positive for presumptive rocky albicans. ID consulted. -on IV fluconazole as per ID. -repeat blood cultures ordered and pending -MIKO ordered; per cardiology, to be done Tuesday -05/24: MIKO no vegetations and repeat blood cultures no growth to date, will need 2 weeks of fluconazole, ID following. Remove CVC once alternate access can be established -05/25: Fluconazole for 2 weeks. CVC removed. Patient did have multiple liquid stools overnight, checking C. difficile and enteric panel #Acute hypoxic respiratory failure due to aspiration pneumonia and ARDS -S/p extubation -Sputum culture is negative -s/p Vanco and Zosyn #Afib -heart rate is improving.off cardizem drip -now on therapeutic lovenox since it has been ~ 1 week since she was diagnosed with the stroke. -on metoprolol 12.5mg bid #Small bowel obstruction and incarcerated hernia -s/p exploratory laparotomy -general surgery on board. -on tube feeds -management as per general surgery -NG tube in place -05/24: Repeat CT today due to concern for bulge, findings only suggestive of postop hematoma in the subcu tissues suggestive of postop changes. Discussed with surgery, will continue to monitor at this time. Discussed nutrition moving forward and given improving mental status holding off on PEG tube, can consider Dobbhoff moving forward or if patient continues to improve hopefully will be able to maintain nutrition on her own. -05/26: Speech still recommends n.p.o. on tube feeds, will likely need PEG tube #DVT ppx: Therapeutic Lovenox Silvana Dennis MD Time spent in the patient's overall evaluation,decision-making process, review of diagnostic data, adjustment of management, discussion with other providers, n ursing nursing and ancillary staff involved in patient's care documentation, 30 minutes Charges/Coding Visit Charges Inpatient E&M: 02935 Subs Hosp L2
--- NOTE | 2022-05-26 10:45 | CASEMGMT ---
Both Enrike and Britany are present. SW met with both of them in patient's room. SASHA explained the physician will be in to discuss peg tube. SASHA also explained that SW is working on placement for patient. SASHA explained it will likely be difficult to find a facility due to patient being pending Medicaid. SASHA explained some of the facilities may call Britany to discuss finances. SW let them know SW is checking with facilities to see who may be able to take patient. Then when SW has a few facilities that accept patient SW can let family know and they can decide which one. Both Enrike and Britany were in agreement with this plan. SASHA notified physician that Britany and Enrike are at [facility]. Margarita Greenwood BUYER ELIA
[2022-05-26 12:05] LABS: Bedside Glucose 140 mg/dL (74-106)
--- NOTE | 2022-05-26 12:25 | PN.SURG_ITS ---
Subjective Subjective Patient does respond verbally still and was actually able to move the left upper extremity with a very weak 4/5. Patient white blood count is down to 11. Objective Data Objective Data Vital Signs: Vital Signs Temp Pulse Resp BP Pulse Ox O2 Del Method O2 Flow Rate 98.1 F 97 18 129/94 H 98 Room Air 2 05/26/22 09:00 05/26/22 09:00 05/26/22 09:00 05/26/22 09:00 05/26/22 09:00 05/26/22 09:00 05/18/22 14:00 FiO2 35 05/16/22 08:00 Oxygen Flow Rate (L/min) 2 Oxygen Delivery Method Room Air Weight: 100 lb 1.438 oz Body Mass Index (BMI) 18.3 Intake & Output: Intake and Output for Last 24 Hours 05/24/22 05/25/22 05/26/22 23:59 23:59 23:59 Intake Total 3455.75 / 3455.75 2899.84 / 2899.84 3203.59 / 3203.59 Output Total 3675 / 3675 2175 / 2175 Balance -219.25 / -219.25 724.84 / 724.84 3203.59 / 3203.59 Lab / Micro Data Result Diagrams: 05/26/22 04:15 05/26/22 04:15 Labs: Laboratory Results - last 24 hr 05/25/22 18:08: POC Glucose 155 H 05/25/22 23:08: POC Glucose 120 H 05/26/22 04:15: WBC 11.5 H, RBC 3.18 L, Hgb 10.2 L, Hct 34.1 L, MCV 107.2 H D, MCH 32.1 H, MCHC 29.9 L D, RDW Std Deviation 60.7 H, RDW Coeff of Audrey 15.5 H, Plt Count 381, MPV 9.2, Immature Gran % (Auto) 2.800 H, Neut % (Auto) 65.0, Lymph % (Auto) 20.2, [place] % (Auto) 10.0, Eos % (Auto) 1.2, Baso % (Auto) 0.8, Absolute Neuts (auto) 7.5, Absolute Lymphs (auto) 2.33, Nucleated RBC % 0 05/26/22 04:15: Sodium 134 L, Potassium 4.4, Chloride 102, Carbon Dioxide 21.0, Anion Gap 11, BUN 21 H, Creatinine 0.42 L, Estim Creat Clear Calc 104.64, Est GFR (MDRD) Af Amer 196, Est GFR (MDRD) Non-Af 162, BUN/Creatinine Ratio 49.4 H, Glucose 102, Calcium 8.3 L 05/26/22 05:46: POC Glucose 115 H 05/26/22 11:45: POC Glucose 140 H Micro: Microbiology 05/20/22 08:17 Blood Culture (Wb) - Anticubital Right Blood Culture - Final No growth in 5 days. 05/14/22 05:55 Blood Culture (Wb) - Left Forearm Blood Culture - Final Presumptive C albicans 05/21/22 14:07 Blood Culture (Wb) - Anticubital Right Blood Culture - Prelim inary No growth in 48 hours. 05/14/22 05:35 Blood Culture (Wb) - Right Forearm Blood Culture - Final No growth in 5 days. 05/12/22 22:50 Blood Culture (Wb) - Chest Blood Culture - Final No growth in 5 days. 05/12/22 22:29 Blood Culture (Wb) - Right Wrist Blood Culture - Final No growth in 5 days. 05/14/22 11:30 Urine Catheter - Isbell Urine Culture - Final Culture exhibits no growth. 05/13/22 09:30 Sputum, Induced/Lukens Gram Stain - Final 05/13/22 09:30 Sputum, Induced/Lukens Respiratory Culture - Final Presumptive C albicans 05/12/22 22:30 Urine, Catheterized Urine Culture - Final Culture exhibits no growth. 05/13/22 00:46 Urine Catheter - Catheter Legionella Antigen - Final 05/13/22 00:46 Urine Catheter - Catheter Streptococcus pneumoniae Antigen (M - Final 05/12/22 22:30 Nasal Secretion SARS-CoV-2 & FLU Antigen (Rapid) - Final Rhythm Strip Rhythm Strip: In and out of sinus rhythm Physical Exam Const Constitutional Narrative: More alert responds verbally to her name and answers simple questions a ppropriately after slight delay, follows commands the right upper extremity and did have a very weak 4/5 squeeze of the left hand. Minimal movement of right toes on command, no movement of the left lower extremity Resp normal respiratory effort GI GI Narrative: Patient's inferior umbilical incision firm, consistent with hematoma per CT and pelvis. Patient did have a small amount of oozing from the incision site which is dressed with 4 x 4 gauze. Extremity Extremity Narrative: Patient follows commands the right upper extremity and left upper extremity, minimal movement of the right toes no movement of the left lower extremity Assessment & Plan Assessment/Plan (1) S/P exploratory laparotomy: (2) Recurrent inguinal hernia of left side with obstruction: (3) Septic shock: (4) Aspiration pneumonia: (5) Acute respiratory failure with hypoxia: (6) Acute hypokalemia: (7) ROSALIE (acute kidney injury): (8) Acute hyponatremia: (9) Acute CVA (cerebrovascular accident): (10) Candidemia: PLAN: Plan Hematoma at incision- will continue to monitor as currently benefits of anticoagulation how weigh risk--small amount of oozing from incision continue to change gauze/monitor. mamadou goal TF- speech still recommending NPO--discussed PEG tube with patient's sister and brother?Britany & Gonsalo. Both were agreeable with placing. We will plan for Tuesday at 8:45 in the morning for PEG tube placement. Will have patient placed on heparin drip so we can start and stop it quicker than the Lovenox. Acute CVA-continue exams-, PT/OT WBC 11.5, continue IV-Per ID-- abx-fluconazole- 1/2 blood cultures did show Mariana--repeat currently negative Lovenox/PPI Tahmina Wayne M.D. Pager: [phone] [facility] [address] [place] [address], [facility], [address] [place] [id number] Office: [phone]
--- NOTE | 2022-05-26 13:40 | PCM.PN.ID ---
Physical Exam Narrative Feeling better, no fever, no abd pain Const alert and no apparent distress Resp normal air movement and clear to auscultation bilaterally Cardio regular rate and regular rhythm GI soft to palpation, non-tender and non-distended Skin no rashes or lesions noted ID ID: Route of nutrition/ use of supplements: [] Nutritional Intake: [] IV Site: [] Isbell Catheter: [] Assessment & Plan Assessment/Plan (1) Acute CVA (cerebrovascular accident): (2) ROSALIE (acute kidney injury): (3) Candidemia: PLAN: 1 of 2 bcx from 05/14/22 with c.albicans, presumptive ID. TTE showed no veg. 05/19 started high dose fluconazole, 800mg once, then 400mg daily. Repeat bcx are all neg. Mental status dramatically improved. MIKO showed no veg. Plan on 2 weeks total of fluc; will change to po. Last dose will be 06/01/22. Will follow
--- NOTE | 2022-05-26 14:06 | CASEMGMT ---
SW received a message from Wana via [facility] that they can accept patient. [facility] said they are interested in patient, but have to get the okay from their corporate to take patient due to pending Medicaid status. [facility] has a call out to Britany to discuss finances. [facility] said they cannot take patient with dobhoff. [facility] declined patient as well as [facility]. Margarita Greenwood WORKERS COMPENSATION COORDINATOR ELIA
--- NOTE | 2022-05-26 14:09 | CASEMGMT ---
SASHA received a phone call from Randee at [facility] asking if patient will have dobhoff at d/c. SASHA let her know patient will be getting a peg tube. Randee will take the referral to the clinical team. Margarita RODRIGEZ
--- NOTE | 2022-05-26 14:52 | CASEMGMT ---
[facility] declined patient. Margarita Greenwood CHILD SPECIALIST ELIA
[2022-05-26 19:38] LABS: International Normalized Ratio 0.9; Prothrombin Time (Protime)PT. 12.1 SECONDS (11.7-14.9)
[2022-05-26 19:39] LABS: Partial Thromboplast Time 31.2 Seconds (24.1-36.2)
[2022-05-26 21:56] LABS: Bedside Glucose 137 mg/dL (74-106)
[2022-05-26] MEDS: HEPARIN/D5w 25,000 UNITS 25,000 UNITS/250 ML IV.SOLN. 7 UNITS CONT INF (23:06)
[2022-05-26 23:40] LABS: Bedside Glucose 109 mg/dL (74-106)
[2022-05-27 04:00] VITALS: BP 145/92; PULSE 94; RESP 16; TEMP 36.6; O2SAT 96
[2022-05-27 05:28] LABS: Absolute Lymphocyte Count 2.89 X10^3/uL (0.83-4.51); Absolute Neutrophil Count 8.4 X10^3/uL (2.0-7.7); Basophil# 0.08 X10^3/uL; Basophil% 0.6 % (0-1); Eosinophil# 0.18 X10^3/uL; Eosinophils% 1.3 % (0-5); Hematocrit 30.8 % (37-47); Hemoglobin 9.9 g/dL (12.0-15.0); Lymphocyte # 2.89 X10^3/ul (0.83-4.51); Lymphocyte % 21.4 % (19-41); Mean Corp Hgb Conc 32.1 g/dL (32-36); Mean Corpuscular Hgb 31.3 pg (27.0-32.0); Mean Corpuscular Volume 97.5 fL (81-99); Mean Platelet Vol. 9.2 fl (6.2-12.0); Monocyte% 10.4 % (0-10); NRBC Flagged by Analyzer 0 % (0-5); Neutrophil % 62.2 % (47-70); Platelet Count 611 K/mm3 (150-450); RBC Distribution Width CV 15.2 % (11.6-14.6); RBC Distribution Width SD 53.2 fl (35.1-43.9); Red Blood Count 3.16 M/mm3 (4.2-5.4); White Blood Count 13.5 K/mm3 (4.4-11.0)
[2022-05-27 05:44] LABS: Anion Gap 7 (5-15); BUN 29 mg/dL (7-18); BUN/Creat Ratio 68.2 RATIO (10-20); Calcium,Total 8.8 mg/dL (8.5-10.1); Chloride 102 mmol/L (98-107); Creatinine, Serum 0.42 mg/dL (0.55-1.02); EST Glomerular Filtration Rate 162 mL/min (>60); Est Glom Filt Rate - Afr Amer 196 mL/min (>60); Estimated Creatinine Clearance 104.64 ml/min; Glucose 105 mg/dL (74-106); Potassium 4.2 mmol/L (3.5-5.1); Sodium Level 135 mmol/L (136-145)
[2022-05-27 06:00] VITALS: BMI 18.3
[2022-05-27] MEDS: Heparin Injection (Vial) 5,000 UNIT/ML VIAL IV ×2 (06:43→21:13)
[2022-05-27 07:05] LABS: Bedside Glucose 93 mg/dL (74-106)
[2022-05-27] MEDS: Vital AF 1.2 Cal Liquid 1,000 ML 45 ML GT (08:29)
[2022-05-27 08:36] VITALS: BP 154/100; PULSE 111
[2022-05-27] MEDS: Metoprolol Tartrate 25 MG Tablet 12.5 MG NG ×2 (08:36→20:52)
[2022-05-27] MEDS: Acetaminophen 650 MG/20 ML UDC GT (08:37)
--- NOTE | 2022-05-27 08:59 | PCM.PN.HOSP ---
Reason for Visit Reason for Visit: Diagnoses Sepsis, unspecified organism (05/13/22) Candidal sepsis (05/13/22) Hypo-osmolality and hyponatremia (05/13/22) Hypokalemia (05/13/22) Metabolic encephalopathy (05/13/22) Unspecified atrial fibrillation (05/13/22) Cerebral infarction, unspecified (05/13/22) Hypotension, unspecified (05/13/22) Pneumonia, unspecified organism (05/13/22) Pneumonitis due to inhalation of food and vomit (05/13/22) Acute respiratory distress syndrome (05/13/22) Acute respiratory failure with hypoxia (05/13/22) Unilateral inguinal hernia, with obstruction, without gangrene, not specified as recurrent (05/13/22) Unilateral inguinal hernia, with obstruction, without gangrene, recurrent (05/13/22) Unspecified intestinal obstruction, unspecified as to partial versus complete obstruction (05/13/22) Acute kidney failure, unspecified (05/13/22) Cardiac murmur, unspecified (05/13/22) Altered mental status, unspecified (05/13/22) Severe sepsis with septic shock (05/13/22) Other specified abnormalities of plasma proteins (05/13/22) Personal history of other diseases of the digestive system (05/13/22) Other specified postprocedural states (05/13/22) Dependence on respirator [ventilator] status (05/13/22) Subjective Subjective Resting comfortably in bed. At the time of evaluation did not have significant abdominal pain and reported it was roughly unchanged. Breathing roughly the same, tube feeds going. Had 1 bowel movement overnight. No other complaints this a.m. from patient Objective Data Objective Data Vital Signs: Vital Signs Temp Pulse Resp BP Pulse Ox O2 Del Method O2 Flow Rate 98 F 111 H 16 154/100 H 96 Room Air 2 05/27/22 04:00 05/27/22 08:36 05/27/22 04:00 05/27/22 08:36 05/27/22 04:00 05/27/22 04:00 05/18/22 14:00 FiO2 35 05/16/22 08:00 Oxygen Flow Rate (L/min) 2 Oxygen Delivery Method Room Air Weight: 45.4 kg Body Mass Index (BMI) 18.3 Intake & Output: Intake and Output for Last 24 Hours 05/25/22 05/26/22 05/27/22 23:59 23:59 23:59 Intake Total 2899.84 / 2899.84 3228.59 / 3228.59 1053.55 / 1053.55 Output Total 2175 / 2175 Balance 724.84 / 724.84 3228.59 / 3228.59 1053.55 / 1053.55 Lab / Micro Data Result Diagrams: 05/27/22 05:02 05/27/22 05:02 Labs: Laboratory Results - last 24 hr 05/26/22 11:45: POC Glucose 140 H 05/26/22 17:48: POC Glucose 137 H 05/26/22 19:13: PT 12.1, INR 0.9, APTT 31.2 05/26/22 23:13: POC Glucose 109 H 05/27/22 05:02: WBC 13.5 H, RBC 3.16 L, Hgb 9.9 L, Hct 30.8 L, MCV 97.5 D, MCH 31.3, MCHC 32.1 D, RDW Std Deviation 53.2 H, RDW Coeff of Audrey 15.2 H, Plt Count 611 H, MPV 9.2, Immature Gran % (Auto) 4.100 H, Neut % (Auto) 62.2, Lymph % (Auto) 21.4, [place] % (Auto) 10.4 H, Eos % (Auto) 1.3, Baso % (Auto) 0.6, Absolute Neuts (auto) 8.4 H, Absolute Lymphs (auto) 2.89, Nucleated RBC % 0 05/27/22 05:02: Sodium 135 L, Potassium 4.2, Chloride 102, Carbon Dioxide 26.0, Anion Gap 7, BUN 29 H, Creatinine 0.42 L, Estim Creat Clear Calc 104.64, Est GFR (MDRD) Af Amer 196, Est GFR (MDRD) Non-Af 162, BUN/Creatinine Ratio 68.2 H, Glucose 105, Calcium 8.8 05/27/22 05:02: APTT 47.0 H 05/27/22 06:40: POC Glucose 93 Micro: Microbiology 05/21/22 14:07 Blood Culture (Wb) - Anticubital Right Blood Culture - Final No growth in 5 days. 03/23/23 08:17 Blood Culture (Wb) - Anticubital Right Blood Culture - Final No growth in 5 days. 05/14/22 05:55 Blood Culture (Wb) - Left Forearm Blood Culture - Final Presumptive C albicans 05/14/22 05:35 Blood Culture (Wb) - Right Forearm Blood Culture - Final No growth in 5 days. 05/12/22 22:50 Blood Culture (Wb) - Chest Blood Culture - Final No growth in 5 days. 05/12/22 22:29 Blood Culture (Wb) - Right Wrist Blood Culture - Final No growth in 5 days. 05/14/22 11:30 Urine Catheter - Isbell Urine Culture - Final Culture exhibits no growth. 05/13/22 09:30 Sputum, Induced/Lukens Gram Stain - Final 05/13/22 09:30 Sputum, Induced/Lukens Respiratory Culture - Final Presumptive C albicans 05/12/22 22:30 Urine, Catheterized Urine Culture - Final Culture exhibits no growth. 05/13/22 00:46 Urine Catheter - Catheter Legionella Antigen - Final 05/13/22 00:46 Urine Catheter - Catheter Streptococcus pneumoniae Antigen (M - Final 05/12/22 22:30 Nasal Secretion SARS-CoV-2 & FLU Antigen (Rapid) - Final Rhythm Strip Rhythm Strip: In and out of sinus rhythm Physical Exam Narrative General: Awake and alert, answering questions appropriately HEENT: Atraumatic, normocephalic Eyes: Anicteric, normal conjunctiva, extraocular movements grossly intact Neck: Supple Respiratory: normal respiratory effort, no wheezes or rhonchi Cardiovascular: Regular rate GI: Soft, slight tenderness around incision site where hematoma located, no significant erythema, minimal drainage from site Extremities: No edema Musculoskeletal: Squeezes with left upper extremity, some right lower extremity movement, no left lower extremity movement Neuro: Left upper extremity weakness and left lower extremity paralysis Skin: No rashes appreciated, slight drainage from midline incision Psych: Cooperative Assessment & Plan Assessment/Plan (1) S/P exploratory laparotomy: (2) Recurrent inguinal hernia of left side with obstruction: (3) Septic shock: (4) Aspiration pneumonia: (5) Acute respiratory failure with hypoxia: (6) Acute hypokalemia: (7) ROSALIE (acute kidney injury): (8) Acute hyponatremia: (9) Acute CVA (cerebrovascular accident): (10) Candidemia: (11) Altered mental status: PLAN: Plan #Acute CVA -After extubation had left-sided hemiparesis -CT of the brain showed large areas of abnormal edema in the parietal occipital lobes with smaller regions of abnormal edema in the cerebellum concerning for large acute infarctions versus hepatic encephalopathy. -CTA head and neck showed no evidence of hemodynamic currently significant stenosis -[facility] telestroke concerned for bilat ischemic stroke, neuro rec holding AC initially even w/ afib and start asa -high intensity statin -PT/OT -MRI of the brain showed large areas of restricted diffusion in the bilateral posterior cerebral hemispheres concerning for large acute infarct and small bilateral cerebellar infarcts as well as small acute lacunar infarct in the bilateral basal ganglia. -echo showed normal left ventricular size with normal left ventricular systolic function and EF of 65% with negative bubble study. -Now on therapeutic Lovenox -05/24: Remains on full dose Lovenox, mental status improving -05/25: NG remains in place, may need Dobbhoff or PEG tube if swallowing does not progress. Surgery on board. Continue speech therapy, PT, OT and discharge planning. -05/26: Speech recommending n.p.o. still, surgery to discuss PEG with family #Candidemia: -blood culture positive for presumptive rocky albicans. ID consulted. -on IV fluconazole as per ID. -repeat blood cultures ordered and pending -MIKO ordered; per cardiology, to be done Tuesday -05/24: MIKO no vegetations and repeat blood cultures no growth to date, will need 2 weeks of fluconazole, ID following. Remove CVC once alternate access can be established -05/25: Fluconazole for 2 weeks. CVC removed. Patient did have multiple liquid stools overnight, checking C. difficile and enteric panel -05/27: Only 1 stool overnight and there is no ability to get sample from night so no enteric samples have been collected. Remains on fluconazole #Acute hypoxic respiratory failure due to aspiration pneumonia and ARDS -S/p extubation -Sputum culture is negative -s/p Vanco and Zosyn #Afib -heart rate is improving.off cardizem drip -now on therapeutic lovenox since it has been ~ 1 week since she was diagnosed with the stroke. -on metoprolol 12.5mg bid -05/27: Changed to heparin drip in preparation for PEG tube #Small bowel obstruction and incarcerated hernia -s/p exploratory laparotomy -general surgery on board. -on tube feeds -management as per general surgery -NG tube in place -05/24: Repeat CT today due to concern for bulge, findings only suggestive of postop hematoma in the subcu tissues suggestive of postop changes. Discussed with surgery, will continue to monitor at this time. Discussed nutrition moving forward and given improving mental status holding off on PEG tube, can consider Dobbhoff moving forward or if patient continues to improve hopefully will be able to maintain nutrition on her own. -05/26: Speech still recommends n.p.o. on tube feeds, will likely need PEG tube -05/27: Changed to heparin drip in preparation for PEG tube, stop tube feeds at midnight and hold heparin at 5:30 AM in preparation for 845 PEG tube placement #DVT ppx: Heparin drip Silvana Dennis MD Time spent in the patient's overall evaluation,decision-making process, review of diagnostic data, adjustment of management, discussion with other providers, nursing nursing and ancillary staff involved in patient's care documentation, 30 minutes Charges/Coding Visit Charges Inpatient E&M: 78278 Subs Hosp L2
[2022-05-27 09:00] VITALS: BP 154/100; PULSE 111; RESP 18; TEMP 36.6; O2SAT 96
[2022-05-27] MEDS: 0.9% Saline Lock 10 ML Syringe IV (09:01)
[2022-05-27] MEDS: Ondansetron 4 MG/2 ML Vial IV (09:01)
[2022-05-27] MEDS: traMADol 50 MG Tablet PO (09:08)
--- NOTE | 2022-05-27 09:08 | PN.SURG_ITS ---
Subjective Subjective Patient seems in a lot more alert today. Patient complaining of belly pain at her incision. Likely due to the hematoma Objective Data Objective Data Vital Signs: Vital Signs Temp Pulse Resp BP Pulse Ox O2 Del Method O2 Flow Rate 98 F 111 H 16 154/100 H 96 Room Air 2 05/27/22 04:00 05/27/22 08:36 05/27/22 04:00 05/27/22 08:36 05/27/22 04:00 05/27/22 04:00 05/18/22 14:00 FiO2 35 05/16/22 08:00 Oxygen Flow Rate (L/min) 2 Oxygen Delivery Method Room Air Weight: 100 lb 1.438 oz Body Mass Index (BMI) 18.3 Intake & Output: Intake and Output for Last 24 Hours 05/25/22 05/26/22 05/27/22 23:59 23:59 23:59 Intake Total 2899.84 / 2899.84 3228.59 / 3228.59 1053.55 / 1053.55 Output Total 2175 / 2175 Balance 724.84 / 724.84 3228.59 / 3228.59 1053.55 / 1053.55 Lab / Micro Data Result Diagrams: 05/27/22 05:02 05/27/22 05:02 Labs: Laboratory Results - last 24 hr 05/26/22 11:45: POC Glucose 140 H 05/26/22 17:48: POC Glucose 137 H 05/26/22 19:13: PT 12.1, INR 0.9, APTT 31.2 05/26/22 23:13: POC Glucose 109 H 05/27/22 05:02: WBC 13.5 H, RBC 3.16 L, Hgb 9.9 L, Hct 30.8 L, MCV 97.5 D, MCH 31.3, MCHC 32.1 D, RDW Std Deviation 53.2 H, RDW Coeff of Audrey 15.2 H, Plt Count 611 H, MPV 9.2, Immature Gran % (Auto) 4.100 H, Neut % (Auto) 62.2, Lymph % (Auto) 21.4, [place] % (Auto) 10.4 H, Eos % (Auto) 1.3, Baso % (Auto) 0.6, Absolute Neuts (auto) 8.4 H, Absolute Lymphs (auto) 2.89, Nucleated RBC % 0 05/27/22 05:02: Sodium 135 L, Potassium 4.2, Chloride 102, Carbon Dioxide 26.0, Anion Gap 7, BUN 29 H, Creatinine 0.42 L, Estim Creat Clear Calc 104.64, Est GFR (MDRD) Af Amer 196, Est GFR (MDRD) Non-Af 162, BUN/Creatinine Ratio 68.2 H, Glucose 105, Calcium 8.8 05/27/22 05:02: APTT 47.0 H 05/27/22 06:40: POC Glucose 93 Micro: Microbiology 05/21/22 14:07 Blood Culture (Wb) - Anticubital Right Blood Culture - Final No growth in 5 days. 05/20/22 08:17 Blood Culture (Wb) - Anticubital Right Blood Culture - Final No growth in 5 days. 05/14/22 05:55 Blood Culture (Wb) - Left Forearm Blood Culture - Final Presumptive C albicans 05/14/22 05:35 Blood Culture (Wb) - Right Forearm Blood Culture - Final No growth in 5 days. 05/12/22 22:50 Blood Culture (Wb) - Chest Blood Culture - Final No growth in 5 days. 05/12/22 22:29 Blood Culture (Wb) - Right Wrist Blood Culture - Final No growth in 5 days. 05/14/22 11:30 Urine Catheter - Isbell Urine Culture - Final Culture exhibits no growth. 05/13/22 09:30 Sputum, Induced/Lukens Gram Stain - Final 05/13/22 09:30 Sputum, Induced/Lukens Respiratory Culture - Final Presumptive C albicans 05/12/22 22:30 Urine, Catheterized Urine Culture - Final Culture exhibits no growth. 05/13/22 00:46 Urine Catheter - Catheter Legionella Antigen - Final 05/13/22 00:46 Urine Catheter - Catheter Streptococcus pneumoniae Antigen (M - Final 05/12/22 22:30 Nasal Secretion SARS-CoV-2 & FLU Antigen (Rapid) - Final Rhythm Strip Rhythm Strip: In and out of sinus rhythm Physical Exam Const Constitutional Narrative: Oriented to person and place Resp normal respiratory effort Cardio regular rate GI GI Narrative: Firm at incision due to hematoma seen on CT, currently no oozing at the incision. Tender to palpation. No left inguinal hernia on exam Extremity Extremity Narrative: Patient does move the right upper extremity and squeeze hands on command, patient is able to to move the right leg slightly off the bed. Patient does not really follow commands with the left arm or left lower extremity. Assessment & Plan Assessment/Plan (1) S/P exploratory laparotomy: (2) Recurrent inguinal hernia of left side with obstruction: (3) Septic shock: (4) Aspiration pneumonia: (5) Acute respiratory failure with hypoxia: (6) Acute hypokalemia: (7) ROSALIE (acute kidney injury): (8) Acute hyponatremia: (9) Acute CVA (cerebrovascular accident): (10) Candidemia: PLAN: Plan Hematoma at incision- will continue to monitor as currently benefits of anticoagulation how weigh risk--small amount of oozing from incision continue to change gauze/monitor. Did give patient pain meds due to the discomfort of the hematoma. Tramadol p.o. and Toradol mamadou goal TF- speech still recommending NPO--PEG tube plan for Tuesday at 8:45 in the morning for PEG tube placement. We will stop heparin drip at 5:30 in the mo rning and stop tube feeds at midnight. Acute CVA-continue exams-, PT/OT WBC 13.5, continue IV-Per ID-- abx-fluconazole- 1/2 blood cultures did show Mariana--repeat currently negative Heparin drip currently/PPI Tahmina Wayne M.D. Pager: [phone] [facility] [address] [place] [address], [facility], [address] [place] [id number] Office: [phone]
[2022-05-27] MEDS: Ketorolac 15 MG/ML Vial IV (09:12)
[2022-05-27] MEDS: Menthol/Lanolin/Calamine/Znox 113 GM Tube 1 APPLIC TOPICAL ×2 (09:21→20:53)
[2022-05-27] MEDS: Fluconazole Suspension 40 MG/ML 35 ML Bottle 400 MG PO (12:11)
[2022-05-27 12:21] LABS: Bedside Glucose 121 mg/dL (74-106)
[2022-05-27 13:03] LABS: Partial Thromboplast Time 82.3 Seconds (24.1-36.2)
--- NOTE | 2022-05-27 13:48 | CASEMGMT ---
Physician feels patient would be better served going to an inpatient rehab unit since she had a stroke. SASHA spoke with patient's sister Britany and explained Acute Rehab Unit vs SNF. Britany is in agreement if physician thinks this would be best for patient. Britany is willing to travel to [place] or wherever. She was in agreement with whichever rehab unit will take patient. SASHA then called Enrike patient's brother and left him a voice mail requesting a return call. SASHA did initiate referral to [facility] via [facility]. Margarita RODRIGEZ
--- NOTE | 2022-05-27 13:53 | CASEMGMT ---
Joe from [facility] called SASHA and left a voice mail requesting a return call regarding questions. SASHA called Joe back and left a voice mail. Margarita RODRIGEZ
--- NOTE | 2022-05-27 14:24 | CASEMGMT ---
Enrike returned SASHA's phone call. SASHA explained physician's recommendations of acute rehab unit. Enrike is in agreement if that is what physician feels is best for patient. SASHA went over acute rehab units with Enrike and he declined a list and was open to any rehab unit that will take patient. SASHA let him know SASHA does have a referral out to [facility] in [place]. Gonsalo was in agreement with this. Margarita Greenwood [employer]
--- NOTE | 2022-05-27 14:54 | CASEMGMT ---
SASHA spoke with Miranda at [facility]. Miranda is getting ready to give the referral to the physician to review. Miranda would really like to get patient into their unit. She will let SASHA know what physician says. Margarita RODRIGEZ
[2022-05-27 15:00] VITALS: BP 137/91; PULSE 97; RESP 18; TEMP 36.4; O2SAT 99
[2022-05-27] MEDS: Dextrose 50%-Water 25 GM/50 ML DISP.SYRIN IV (17:59)
[2022-05-27 18:00] LABS: Bedside Glucose 67 mg/dL (74-106)
[2022-05-27 19:00] LABS: Bedside Glucose 199 mg/dL (74-106)
[2022-05-27 20:20] LABS: Partial Thromboplast Time 54.4 Seconds (24.1-36.2)
[2022-05-27 20:45] VITALS: BP 148/98; PULSE 98; RESP 18; TEMP 36.7; O2SAT 100
[2022-05-27 20:52] VITALS: BP 148/98; PULSE 98
[2022-05-28] VITALS (10 sets, daily range): BP systolic 119–164; BP diastolic 80–116; PULSE 95–114; RESP 13–18; TEMP 36.2–36.7; O2SAT 96–100; BMI 18.3
[2022-05-28 01:51] LABS: Bedside Glucose 84 mg/dL (74-106)
[2022-05-28] MEDS: Morphine 2 MG/ML Syringe 1 MG IV ×3 (02:21→23:25)
[2022-05-28] MEDS: 0.9% Saline Lock 10 ML Syringe IV ×3 (02:22→23:32)
[2022-05-28 03:37] LABS: Absolute Neutrophil Count 11.9 X10^3/uL (2.0-7.7); Basophil# 0.08 X10^3/uL; Basophil% 0.5 % (0-1); Eosinophil# 0.24 X10^3/uL; Eosinophils% 1.5 % (0-5); Hematocrit 29.9 % (37-47); Hemoglobin 9.6 g/dL (12.0-15.0); Lymphocyte % 13.7 % (19-41); Mean Corp Hgb Conc 32.1 g/dL (32-36); Mean Corpuscular Hgb 31.4 pg (27.0-32.0); Mean Corpuscular Volume 97.7 fL (81-99); Mean Platelet Vol. 8.8 fl (6.2-12.0); Monocyte# 1.24 X10^3/uL; Monocyte% 7.7 % (0-10); NRBC Flagged by Analyzer 0 % (0-5); Neutrophil # 11.87 X10^3/uL (2.7-7.7); Platelet Count 514 K/mm3 (150-450); RBC Distribution Width SD 52.8 fl (35.1-43.9); Red Blood Count 3.06 M/mm3 (4.2-5.4)
[2022-05-28 03:50] LABS: Anion Gap 6 (5-15); BUN 33 mg/dL (7-18); BUN/Creat Ratio 70.8 RATIO (10-20); Calcium,Total 8.6 mg/dL (8.5-10.1); Chloride 101 mmol/L (98-107); Creatinine, Serum 0.47 mg/dL (0.55-1.02); EST Glomerular Filtration Rate 146 mL/min (>60); Est Glom Filt Rate - Afr Amer 176 mL/min (>60); Estimated Creatinine Clearance 93.51 ml/min; Glucose 96 mg/dL (74-106); Potassium 4.1 mmol/L (3.5-5.1); Sodium Level 134 mmol/L (136-145)
[2022-05-28 03:56] LABS: Partial Thromboplast Time 107.9 Seconds (24.1-36.2)
[2022-05-28 06:50] LABS: Bedside Glucose 86 mg/dL (74-106)
--- NOTE | 2022-05-28 06:57 | CPS ---
pt continues to refuse aerosols. will speak with Dr soliz
[2022-05-28] MEDS: Lactated Ringers 1,000 ML 15 ML IV (07:40)
--- NOTE | 2022-05-28 07:53 | NURSING ---
This RN called report to Bravo Read RN in [place].
--- NOTE | 2022-05-28 08:33 | PCM.PN.HOSP ---
Reason for Visit Reason for Visit: Diagnoses Sepsis, unspecified organism (05/13/22) Candidal sepsis (05/13/22) Hypo-osmolality and hyponatremia (05/13/22) Hypokalemia (05/13/22) Metabolic encephalopathy (05/13/22) Unspecified atrial fibrillation (05/13/22) Cerebral infarction, unspecified (05/13/22) Hypotension, unspecified (05/13/22) Pneumonia, unspecified organism (05/13/22) Pneumonitis due to inhalation of food and vomit (05/13/22) Acute respiratory distress syndrome (05/13/22) Acute respiratory failure with hypoxia (05/13/22) Unilateral inguinal hernia, with obstruction, without gangrene, not specified as recurrent (05/13/22) Unilateral inguinal hernia, with obstruction, without gangrene, recurrent (05/13/22) Unspecified intestinal obstruction, unspecified as to partial versus complete obstruction (05/13/22) Acute kidney failure, unspecified (05/13/22) Cardiac murmur, unspecified (05/13/22) Altered mental status, unspecified (05/13/22) Severe sepsis with septic shock (05/13/22) Other specified abnormalities of plasma proteins (05/13/22) Personal history of other diseases of the digestive system (05/13/22) Other specified postprocedural states (05/13/22) Dependence on respirator [ventilator] status (05/13/22) Subjective Subjective Laying in bed, no acute distress. Does still have some abdominal pain but does not note that it is worse. Heparin drip off in preparation for PEG tube Objective Data Objective Data Vital Signs: Vital Signs Temp Pulse Resp BP Pulse Ox O2 Del Method O2 Flow Rate 98.1 F 97 18 147/94 H 100 Room Air 2 05/28/22 03:15 05/28/22 03:15 05/28/22 03:15 05/28/22 03:15 05/28/22 03:15 05/28/22 03:15 05/18/22 14:00 FiO2 35 05/16/22 08:00 Oxygen Flow Rate (L/min) 2 Oxygen Delivery Method Room Air Weight: 45.3 kg Body Mass Index (BMI) 18.3 Intake & Output: Intake and Output for Last 24 Hours 03/05/27/22 05/28/22 23:59 23:59 23:59 Intake Total 3228.59 / 3228.59 1881.29 / 1881.29 212.17 / 212.17 Balance 3228.59 / 3228.59 1881.29 / 188.29 212.17 / 212.17 Lab / Micro Data Result Diagrams: 05/28/22 03:25 05/28/22 03:25 Labs: Laboratory Results - last 24 hr 05/27/22 11:59: POC Glucose 121 H 05/27/22 12:35: APTT 82.3 H 05/27/22 17:39: POC Glucose 67 L 05/27/22 18:34: POC Glucose 199 H 05/27/22 19:38: APTT 54.4 H 05/28/22 00:43: POC Glucose 84 05/28/22 03:25: WBC 16.0 H, RBC 3.06 L, Hgb 9.6 L, Hct 29.9 L, MCV 97.7, MCH 31.4, MCHC 32.1, RDW Std Deviation 52.8 H, RDW Coeff of Audrey 15.0 H, Plt Count 514 H, MPV 8.8, Immature Gran % (Auto) 2.600 H, Neut % (Auto) 74.0 H, Lymph % (Auto) 13.7 L, [place] % (Auto) 7.7, Eos % (Auto) 1.5, Baso % (Auto) 0.5, Absolute Neuts (auto) 11.9 H, Absolute Lymphs (auto) 2.20, Nucleated RBC % 0 05/28/22 03:25: Sodium 134 L, Potassium 4.1, Chloride 101, Carbon Dioxide 27.0, Anion Gap 6, BUN 33 H, Creatinine 0.47 L, Estim Creat Clear Calc 93.51, Est GFR (MDRD) Af Amer 176, Est GFR (MDRD) Non-Af 146, BUN/Creatinine Ratio 70.8 H, Glucose 96, Calcium 8.6 05/28/22 03:25: APTT 107.9 H* 05/28/22 05:51: POC Glucose 86 Micro: Microbiology 05/21/22 14:07 Blood Culture (Wb) - Anticubital Right Blood Culture - Final No growth in 5 days. 05/20/22 08:17 Blood Culture (Wb) - Anticubital Right Blood Culture - Final No growth in 5 days. 05/14/22 05:55 Blood Culture (Wb) - Left Forearm Blood Culture - Final Presumptive C albicans 05/14/22 05:35 Blood Culture (Wb) - Right Forearm Blood Culture - Final No growth in 5 days. 05/12/22 22:50 Blood Culture (Wb) - Chest Blood Culture - Final No growth in 5 days. 05/12/22 22:29 Blood Culture (Wb) - Right Wrist Blood Culture - Final No growth in 5 days. 05/14/22 11:30 Urine Catheter - Isbell Urine Culture - Final Culture exhibits no growth. 05/13/22 09:30 Sputum, Induced/Lukens Gram Stain - Final 05/13/22 09:30 Sputum, Induced/Lukens Respiratory Culture - Final Presumptive C albicans 05/12/22 22:30 Urine, Catheterized Urine Culture - Final Culture exhibits no growth. 05/13/22 00:46 Urine Catheter - Catheter Legionella Antigen - Final 05/13/22 00:46 Urine Catheter - Catheter Streptococcus pneumoniae Antigen (M - Final 05/12/22 22:30 Nasal Secretion SARS-CoV-2 & FLU Antigen (Rapid) - Final Rhythm Strip Rhythm Strip: In and out of sinus rhythm Physical Exam Narrative General: Wakes up this somewhat tired HEENT: Atraumatic, normocephalic Eyes: Anicteric, normal conjunctiva, extraocular movements grossly intact Neck: Supple Respiratory: normal respiratory effort Cardiovascular: Regular rate GI: Soft, mild tenderness around incision, nondistended, mild induration around midline incision without erythema or pus Extremities: No edema Musculoskeletal: Does not move left lower extremity, minimal movement in left upper extremity Neuro: Left lower extremity no movement, minimal movement in right and left upper extremity Skin: No rashes appreciated Psych: Cooperative Assessment & Plan Assessment/Plan (1) S/P exploratory laparotomy: (2) Recurrent inguinal hernia of left side with obstruction: (3) Septic shock: (4) Aspiration pneumonia: (5) Acute respiratory failure with hypoxia: (6) Acute hypokalemia: (7) ROSALIE (acute kidney injury): (8) Acute hyponatremia: (9) Acute CVA (cerebrovascular accident): (10) Candidemia: (11) Altered mental status: PLAN: Plan #Acute CVA -After extubation had left-sided hemiparesis -CT of the brain showed large areas of abnormal edema in the parietal occipital lobes with smaller regions of abnormal edema in the cerebellum concerning for large acute infarctions versus hepatic encephalopathy. -CTA head and neck showed no evidence of hemodynamic currently significant stenosis -[facility] telestroke concerned for bilat ischemic stroke, neuro rec holding AC initially even w/ afib and start asa -high intensity statin -PT/OT -MRI of the brain showed large areas of restricted diffusion in the bilateral posterior cerebral hemispheres concerning for large acute infarct and small bilateral cerebellar infarcts as well as small acute lacunar infarct in the bilateral basal ganglia. -echo showed normal left ventricular size with normal left ventricular systolic function and EF of 65% with negative bubble study. -Now on therapeutic Lovenox -05/24: Remains on full dose Lovenox, mental status improving -05/25: NG remains in place, may need Dobbhoff or PEG tube if swallowing does not progress. Surgery on board. Continue speech therapy, PT, OT and discharge planning. -05/26: Speech recommending n.p.o. still, surgery to discuss PEG with family -05/28: PEG tube today #Candidemia: -blood culture positive for presumptive rocky albicans. ID consulted. -on IV fluconazole as per ID. -repeat blood cultures ordered and pending -MIKO ordered; per cardiology, to be done Tuesday -05/24: MIKO no vegetations and repeat blood cultures no growth to date, will need 2 weeks of fluconazole, ID following. Remove CVC once alternate access can be established -05/25: Fluconazole for 2 weeks. CVC removed. Patient did have multiple liquid stools overnight, checking C. difficile and enteric panel -05/27: Only 1 stool overnight and there is no ability to get sample from night so no enteric samples have been collected. Remains on fluconazole -05/28: White blood cell count increasing again, afebrile at this time but patient difficulty expressing any discomfort. We will obtain UA and cultures. Low threshold for antibiotics if needed #Acute hypoxic respiratory failure due to aspiration pneumonia and ARDS -S/p extubation -Sputum culture is negative -s/p Vanco and Zosyn #Afib -heart rate is improving.off cardizem drip -now on therapeutic lovenox since it has been ~ 1 week since she was diagnosed with the stroke. -on metoprolol 12.5mg bid -05/27: Changed to heparin drip in preparation for PEG tube #Small bowel obstruction and incarcerated hernia with hematoma and incision site -s/p exploratory laparotomy -general surgery on board. -on tube feeds -management as per general surgery -NG tube in place -05/24: Repeat CT today due to concern for bulge, findings only suggestive of postop hematoma in the subcu tissues suggestive of postop changes. Discussed with surgery, will continue to monitor at this time. Discussed nutrition moving forward and given improving mental status holding off on PEG tube, can consider Dobbhoff moving forward or if patient continues to improve hopefully will be able to maintain nutrition on her own. -05/26: Speech still recommends n.p.o. on tube feeds, will likely need PEG tube -05/27: Changed to heparin drip in preparation for PEG tube, stop tube feeds at midnight and hold heparin at 5:30 AM in preparation for 845 PEG tube placement #DVT ppx: Heparin drip Silvana Dennis MD Time spent in the patient's overall evaluation,decision-making process, review of diagnostic data, adjustment of management, discussion with other providers, nursing nursing and ancillary staff involved in patient's care documentation, 30 minutes Charges/Coding Visit Charges Inpatient E&M: 62583 Subs Hosp L2
[2022-05-28] MEDS: Cefazolin 2 GM in 0.9% Normal Saline 100 ML IV (09:13)
[2022-05-28] MEDS: Lidocaine 1% /Epi 1:100 (50ml) 50 ML VIAL (09:15)
--- NOTE | 2022-05-28 09:41 | OP.EGD_ITS ---
Patient Name: Jocelynn Gould Procedure Date: 05/28/2022 8:59 AM Date of : 1965 Age: 56 Procedure: Upper GI endoscopy Indications: Dysphagia, Place PEG due to dysphagia, Place PEG due to neurological disorder causing impaired swallowing Providers: Tahmina Wayne MD Medicines: Monitored Anesthesia Care Patient Profile: This is a 56 year old female. Complications: No immediate complications. Procedure: Pre-Anesthesia Assessment: - Prior to the procedure, a History and Physical was performed, and patient medications and allergies were reviewed. The patient's tolerance of previous anesthesia was also reviewed. The risks and benefits of the procedure and the sedation options and risks were discussed with the patient. All questions were answered, and informed consent was obtained. Prior Anticoagulants: The patient has taken heparin, last dose was day of procedure. ASA Grade Assessment: Per anesthesia. After reviewing the risks and benefits, the patient was deemed in satisfactory condition to undergo the procedure. After obtaining informed consent, the endoscope was passed under direct vision. Throughout the procedure, the patient's blood pressure, pulse, and oxygen saturations were monitored continuously. The gastroscope was introduced through the mouth, and advanced to the second part of duodenum. The upper GI endoscopy was accomplished without difficulty. The patient tolerated the procedure well. Scope In: 9:14:58 AM Scope Out: 9:29:36 AM Total Procedure Duration Time 0 hours 14 minutes 38 seconds Findings: The Z-line was variable and was found 38 cm from the incisors. The examined duodenum was normal. The cardia and gastric fundus were normal on retroflexion. The patient was placed in the supine position for PEG placement. The stomach was insufflated to appose gastric and abdominal medina. A site was located in the body of the stomach with good transillumination for placement. The abdominal wall was marked and prepped in a sterile manner. The area was anesthetized with 4 mL of 1% lidocaine. The trocar needle was introduced through the abdominal wall and into the stomach under direct endoscopic view. A snare was introduced through the endoscope and opened in the gastric lumen. The guide wire was passed through the trocar and into the open snare. The snare was closed around the guide wire. The endoscope and snare were removed, pulling the wire out through the mouth. A skin incision was made at the site of needle insertion. The externally removable 20 Fr EndoVive Safety gastrostomy tube was lubricated. The G-tube was tied to the guide wire and pulled through the mouth and into the stomach. The trocar needle was removed, and the gastrostomy tube was pulled out from the stomach through the skin. The external bumper was attached to the gastrostomy tube, and the tube was cut to remove the guide wire. The final position of the gastrostomy tube was confirmed by relook endoscopy, and skin marking noted to be 3 cm at the external bumper. The final tension and compression of the abdominal wall by the PEG tube and external bumper were checked and revealed that the bumper was loose and lightly touching the skin. The feeding tube was capped, and the tube site cleaned and dressed. Impression: - Z-line variable, 38 cm from the incisors. - Normal examined duodenum. - An externally removable PEG placement was successfully completed. - No specimens collected. Recommendation: - Return patient to hospital hunt for ongoing care. - Please follow the post-PEG recommendations including: change dressing once per day, may use PEG today for meds and water, may use PEG tomorrow for feedings and binder in place- very loose due to hematoma at incision. - Continue present medications. - Resume heparin at prior dose today--1300--NO bolus. Procedure Code(s): --- Professional --- 98050, Esophagogastroduodenoscopy, flexible, transoral; with directed placement of percutaneous gastrostomy tube Diagnosis Code(s): --- Professional --- K22.8, Other specified diseases of esophagus R13.10, Dysphagia, unspecified Z43.1, Encounter for attention to gastrostomy R29.818, Other symptoms and signs involving the nervous system CPT copyright 2017 [employer]. All rights reserved. The codes documented in this report are preliminary and upon electronics technology department chair review may be revised to meet current compliance requirements. MD Tahmina Rowan MD 05/28/2022 9:41:16 AM This report has been signed electronically. Number of Addenda: 0 Note Initiated On: 05/28/2022 8:59 AM
--- NOTE | 2022-05-28 09:42 | OP.CCLET_ITS ---
05/28/2022 Lance Daley MD [address] [place] [address] Re : Upper GI endoscopy procedure for Jocelynn Luis Fernando Dear Dr. Daley This procedure was performed on Saturday, May 28, 2022. My impressions and recommendations are as follows: Impressions : - Z-line variable, 38 cm from the incisors. - Normal examined duodenum. - An externally removable PEG placement was successfully completed. - No specimens collected. Recommendations : - Return patient to hospital hunt for ongoing care. - Please follow the post-PEG recommendations including: change dressing once per day, may use PEG today for meds and water, may use PEG tomorrow for feedings and binder in place- very loose due to hematoma at incision. - Continue present medications. - Resume heparin at prior dose today--1300--NO bolus. My findings are described in the full procedure note, which is enclosed. If I can be of further assistance, please feel free to contact me at Doctor phone number(s): , Work: . Sincerely, MD Tahmina Rowan MD 05/28/2022 9:41:16 AM This report has been signed electronically.
[2022-05-28] MEDS: Menthol/Lanolin/Calamine/Znox 113 GM Tube 1 APPLIC TOPICAL ×2 (10:16→22:46)
[2022-05-28] MEDS: Fluconazole Suspension 40 MG/ML 35 ML Bottle 400 MG PO (11:11)
[2022-05-28] MEDS: Metoprolol Tartrate 25 MG Tablet 12.5 MG NG ×2 (11:11→22:47)
[2022-05-28 12:01] LABS: Bedside Glucose 98 mg/dL (74-106)
--- NOTE | 2022-05-28 12:04 | CASEMGMT ---
SASHA received a message in [facility] yesterday 05-27 from Joe at [facility] and their physician has accepted patient. Joe will follow up with SASHA Tuesday afternoon. Margarita RODRIGEZ
--- NOTE | 2022-05-28 12:08 | CASEMGMT ---
SASHA called patient's sister Britany and let her know that [facility] has accepted patient and she will likely go over the weekend. Britany was in agreement. SASHA called patient's brother Enrike and let him know this same information and he too was in agreement. Plan: [facility]. Margarita RODRIGEZ
--- NOTE | 2022-05-28 13:02 | NURSING ---
Per Dr. Wayne's note, change dressing once per day, may use PEG today for meds and water, may use PEG tomorrow for feedings and binder in place- very loose due to hematoma at incision. Administered meds and flushed with 120 cc this morning, patient tolerated well.
--- NOTE | 2022-05-28 13:32 | CASEMGMT ---
SW sent updates to [facility] via [facility]. Margarita Greenwood SHAKE FEEDER PROGRAM CHECKER
[2022-05-28] MEDS: HEPARIN/D5w 25,000 UNITS 25,000 UNITS/250 ML IV.SOLN. 8 UNITS CONT INF (16:27)
[2022-05-28 17:15] LABS: Bacteria 0 SEEN /hpf (None Seen); Mucous, Urine 0 SEEN /hpf (<or=2+); Red Blood Cells-Urine 0 SEEN /hpf (0-5); Squamous Epithelial Cells - UA 0 SEEN /hpf (5-10)
[2022-05-28 17:18] LABS: Color, Urine Yellow (Yellow); Glucose, Dipstick Normal (Normal); Ketone-Dipstick Negative (Negative); Leukocyte Esterase-Dipstick Negative /ul (Negative); Nitrite-Dipstick Negative (Negative); Occult Blood-Urine Negative /ul (Negative); Protein-Dipstick Negative (Negative); Specific Gravity, Urine 1.025 (1.002-1.030); Urine Bilirubin Dipstick Negative (Negative); Urine Clarity Clear (Clear); Urine Urobilinogen Normal (Normal)
--- NOTE | 2022-05-28 17:21 | CASEMGMT ---
[facility] is fine with patient admitting to them over the weekend. Phone number for report is [phone] and fax number is [phone]. Green sheet on chart. Plan: [facility] Margarita RODRIGEZ
[2022-05-28 17:24] LABS: White Blood Cells 0-5 SEEN /hpf (0-5)
[2022-05-28 18:41] LABS: Bedside Glucose 101 mg/dL (74-106)
[2022-05-28 23:13] LABS: Partial Thromboplast Time 93.2 Seconds (24.1-36.2)
[2022-05-29] VITALS (13 sets, daily range): BP systolic 120–161; BP diastolic 78–104; PULSE 90–117; RESP 14–18; TEMP 36.6–37.3; O2SAT 94–100; BMI 16.9
[2022-05-29 00:51] LABS: Bedside Glucose 116 mg/dL (74-106)
[2022-05-29] MEDS: hydrALAZINE 20 MG/ML Vial 10 MG IV (03:41)
[2022-05-29] MEDS: 0.9% Saline Lock 10 ML Syringe IV (03:42)
[2022-05-29 06:55] LABS: Bedside Glucose 122 mg/dL (74-106)
[2022-05-29 07:05] LABS: Absolute Lymphocyte Count 1.99 X10^3/uL (0.83-4.51); Absolute Neutrophil Count 11.3 X10^3/uL (2.0-7.7); Basophil# 0.08 X10^3/uL; Basophil% 0.5 % (0-1); Eosinophil# 0.05 X10^3/uL; Eosinophils% 0.3 % (0-5); Hematocrit 24.2 % (37-47); Hemoglobin 7.7 g/dL (12.0-15.0); Lymphocyte # 1.99 X10^3/ul (0.83-4.51); Lymphocyte % 13.4 % (19-41); Mean Corp Hgb Conc 31.8 g/dL (32-36); Mean Corpuscular Hgb 31.2 pg (27.0-32.0); Mean Platelet Vol. 9.2 fl (6.2-12.0); Monocyte# 0.99 X10^3/uL; Monocyte% 6.7 % (0-10); NRBC Flagged by Analyzer 0 % (0-5); Neutrophil # 11.33 X10^3/uL (2.7-7.7); Neutrophil % 76.3 % (47-70); Platelet Count 503 K/mm3 (150-450); RBC Distribution Width CV 15.2 % (11.6-14.6); RBC Distribution Width SD 52.6 fl (35.1-43.9); Red Blood Count 2.47 M/mm3 (4.2-5.4); White Blood Count 14.9 K/mm3 (4.4-11.0)
[2022-05-29 07:34] LABS: Anion Gap 7 (5-15); BUN 36 mg/dL (7-18); BUN/Creat Ratio 68.7 RATIO (10-20); Calcium,Total 9.3 mg/dL (8.5-10.1); Chloride 100 mmol/L (98-107); Creatinine, Serum 0.52 mg/dL (0.55-1.02); EST Glomerular Filtration Rate 127 mL/min (>60); Est Glom Filt Rate - Afr Amer 154 mL/min (>60); Estimated Creatinine Clearance 77.82 ml/min; Glucose 128 mg/dL (74-106); Potassium 4.2 mmol/L (3.5-5.1); Sodium Level 134 mmol/L (136-145)
--- NOTE | 2022-05-29 08:12 | PCM.PN.SRG ---
Subjective Subjective Patient had some oozing around her PEG tube throughout the night. Objective Data Objective Data Vital Signs: Vital Signs Temp Pulse Resp BP Pulse Ox O2 Del Method O2 Flow Rate 98.4 F 102 H 18 161/104 H 94 Room Air 2 05/29/22 03:33 05/29/22 03:41 05/29/22 03:33 05/29/22 03:41 05/29/22 03:33 05/29/22 03:45 05/18/22 14:00 FiO2 35 05/16/22 08:00 Oxygen Flow Rate (L/min) 2 Oxygen Delivery Method Room Air Weight: 92 lb 2.452 oz Body Mass Index (BMI) 16.9 Intake & Output: Intake and Output for Last 24 Hours 05/27/22 05/28/22 05/29/22 23:59 23:59 23:59 Intake Total 1881.29 / 1881.29 1251.10 / 1251.10 60 / 60 Balance 1881.29 / 1881.29 1251.10 / 1251.10 60 / 60 Lab / Micro Data Result Diagrams: 05/29/22 06:25 05/29/22 06:25 Labs: Laboratory Results - last 24 hr 05/28/22 11:14: POC Glucose 98 05/28/22 17:00: Urine Color Yellow, Urine Clarity Clear, Urine pH 5.0, Ur Specific [place] 1.025, Urine Protein Negative, Urine Glucose (UA) Normal, Urine Ketones Negative, Urine Occult Blood Negative, Urine Nitrite Negative, Urine Bilirubin Negative, Urine Urobilinogen Normal, Ur Leukocyte Esterase Negative, Urine RBC 0 SEEN, Urine WBC 0-5 SEEN, Ur Squamous Epith Cells 0 SEEN, Urine Bacteria 0 SEEN, Urine Mucus 0 SEEN 05/28/22 18:09: POC Glucose 101 05/28/22 22:25: APTT 93.2 H* 05/28/22 23:20: POC Glucose 116 H 05/29/22 05:25: POC Glucose 122 H 05/29/22 06:25: WBC 14.9 H, RBC 2.47 L, Hgb 7.7 L, Hct 24.2 L, MCV 98.0, MCH 31.2, MCHC 31.8 L, RDW Std Deviation 52.6 H, RDW Coeff of Audrey 15.2 H, Plt Count 503 H, MPV 9.2, Immature Gran % (Auto) 2.800 H, Neut % (Auto) 76.3 H, Lymph % (Auto) 13.4 L, [place] % (Auto) 6.7, Eos % (Auto) 0.3, Baso % (Auto) 0.5, Absolute Neuts (auto) 11.3 H, Absolute Lymphs (auto) 1.99, Nucleated RBC % 0 05/29/22 06:25: Sodium 134 L, Potassium 4.2, Chloride 100, Carbon Dioxide 27.0, Anion Gap 7, BUN 36 H, Creatinine 0.52 L, Estim Creat Clear Calc 77.82, Est GFR (MDRD) Af Amer 154, Est GFR (MDRD) Non-Af 127, BUN/Creatinine Ratio 68.7 H, Glucose 128 H, Calcium 9.3 Micro: Microbiology 05/21/22 14:07 Blood Culture (Wb) - Anticubital Right Blood Culture - Final No growth in 5 days. 05/20/22 08:17 Blood Culture (Wb) - Anticubital Right Blood Culture - Final No growth in 5 days. 05/14/22 05:55 Blood Culture (Wb) - Left Forearm Blood Culture - Final Presumptive C albicans 05/14/22 05:35 Blood Culture (Wb) - Right Forearm Blood Culture - Final No growth in 5 days. 05/12/22 22:50 Blood Culture (Wb) - Chest Blood Culture - Final No growth in 5 days. 05/12/22 22:29 Blood Culture (Wb) - Right Wrist Blood Culture - Final No growth in 5 days. 05/14/22 11:30 Urine Catheter - Isbell Urine Culture - Final Culture exhibits no growth. 05/13/22 09:30 Sputum, Induced/Lukens Gram Stain - Final 05/13/22 09:30 Sputum, Induced/Lukens Respiratory Culture - Final Presumptive C albicans 05/12/22 22:30 Urine, Catheterized Urine Culture - Final Culture exhibits no growth. 05/13/22 00:46 Urine Catheter - Catheter Legionella Antigen - Final 05/13/22 00:46 Urine Catheter - Catheter Streptococcus pneumoniae Antigen (M - Final 05/12/22 22:30 Nasal Secretion SARS-CoV-2 & FLU Antigen (Rapid) - Final Rhythm Strip Rhythm Strip: In and out of sinus rhythm Assessment & Plan Assessment/Plan (1) Acute CVA (cerebrovascular accident): (2) S/P exploratory laparotomy: PLAN: Plan Patient had oozing of blood around her PEG tube overnight. I cinched the bolster down to 2.5 cm at the skin. I changed her dressings and placed new gauze and new dressing under the bolster to provide additional pressure. Anticoagulation should not be stopped if possible due to recent stroke. Recheck hemoglobin this afternoon as it has dropped significantly since yesterday. Okay to start tube feeds this morning. Jesus Lynn MD Pager: [facility] [address] [place] [address], [address] [place] [address] Office:
[2022-05-29] MEDS: Metoprolol Tartrate 25 MG Tablet 12.5 MG NG ×2 (08:29→21:27)
[2022-05-29] MEDS: Menthol/Lanolin/Calamine/Znox 113 GM Tube 1 APPLIC TOPICAL ×2 (08:30→21:29)
[2022-05-29] MEDS: Fluconazole Suspension 40 MG/ML 35 ML Bottle 400 MG PO (08:30)
[2022-05-29 08:36] LABS: Partial Thromboplast Time 65.2 Seconds (24.1-36.2)
[2022-05-29] MEDS: Vital AF 1.2 Cal Liquid 1,000 ML 45 ML GT ×2 (08:46→21:29)
[2022-05-29] MEDS: Enoxaparin 60 MG/0.6 ML Syringe 50 MG SC ×2 (10:31→21:30)
--- NOTE | 2022-05-29 10:41 | PCM.PN.HOSP ---
Reason for Visit Reason for Visit: Diagnoses Sepsis, unspecified organism (05/13/22) Candidal sepsis (05/13/22) Hypo-osmolality and hyponatremia (05/13/22) Hypokalemia (05/13/22) Metabolic encephalopathy (05/13/22) Unspecified atrial fibrillation (05/13/22) Cerebral infarction, unspecified (05/13/22) Hypotension, unspecified (05/13/22) Pneumonia, unspecified organism (05/13/22) Pneumonitis due to inhalation of food and vomit (05/13/22) Acute respiratory distress syndrome (05/13/22) Acute respiratory failure with hypoxia (05/13/22) Unilateral inguinal hernia, with obstruction, without gangrene, not specified as recurrent (05/13/22) Unilateral inguinal hernia, with obstruction, without gangrene, recurrent (05/13/22) Unspecified intestinal obstruction, unspecified as to partial versus complete obstruction (05/13/22) Acute kidney failure, unspecified (05/13/22) Cardiac murmur, unspecified (05/13/22) Altered mental status, unspecified (05/13/22) Severe sepsis with septic shock (05/13/22) Other specified abnormalities of plasma proteins (05/13/22) Personal history of other diseases of the digestive system (05/13/22) Other specified postprocedural states (05/13/22) Dependence on respirator [ventilator] status (05/13/22) Subjective Subjective Patient resting in bed, had PEG tube placed yesterday and had some bleeding around the site while on heparin drip Objective Data Objective Data Vital Signs: Vital Signs Temp Pulse Resp BP Pulse Ox O2 Del Method O2 Flow Rate 98.1 F 117 H 14 124/94 H 97 Room Air 2 05/29/22 08:27 05/29/22 08:29 05/29/22 08:27 05/29/22 08:29 05/29/22 08:27 05/29/22 08:27 05/18/22 14:00 FiO2 35 05/16/22 08:00 Oxygen Flow Rate (L/min) 2 Oxygen Delivery Method Room Air Weight: 41.8 kg Body Mass Index (BMI) 16.9 Intake & Output: Intake and Output for Last 24 Hours 05/27/22 05/28/22 05/29/22 23:59 23:59 23:59 Intake Total 1881.29 / 188.29 1251.10 / 1251.10 229.9 / 229.9 Balance 1881. / 1880.29 1251.10 / 1251.10 229.9 / 229.9 Lab / Micro Data Result Diagrams: 05/29/22 06:25 05/29/22 06:25 Labs: Laboratory Results - last 24 hr 05/28/22 11:14: POC Glucose 98 05/28/22 17:00: Urine Color Yellow, Urine Clarity Clear, Urine pH 5.0, Ur Specific [place] 1.025, Urine Protein Negative, Urine Glucose (UA) Normal, Urine Ketones Negative, Urine Occult Blood Negative, Urine Nitrite Negative, Urine Bilirubin Negative, Urine Urobilinogen Normal, Ur Leukocyte Esterase Negative, Urine RBC 0 SEEN, Urine WBC 0-5 SEEN, Ur Squamous Epith Cells 0 SEEN, Urine Bacteria 0 SEEN, Urine Mucus 0 SEEN 05/28/22 18:09: POC Glucose 101 05/28/22 22:25: APTT 93.2 H* 05/28/22 23:20: POC Glucose 116 H 05/29/22 05:25: POC Glucose 122 H 05/29/22 06:25: WBC 14.9 H, RBC 2.47 L, Hgb 7.7 L, Hct 24.2 L, MCV 98.0, MCH 31.2, MCHC 31.8 L, RDW Std Deviation 52.6 H, RDW Coeff of Audrey 15.2 H, Plt Count 503 H, MPV 9.2, Immature Gran % (Auto) 2.800 H, Neut % (Auto) 76.3 H, Lymph % (Auto) 13.4 L, Yates % (Auto) 6.7, Eos % (Auto) 0.3, Baso % (Auto) 0.5, Absolute Neuts (auto) 11.3 H, Absolute Lymphs (auto) 1.99, Nucleated RBC % 0 05/29/22 06:25: Sodium 134 L, Potassium 4.2, Chloride 100, Carbon Dioxide 27.0, Anion Gap 7, BUN 36 H, Creatinine 0.52 L, Estim Creat Clear Calc 77.82, Est GFR (MDRD) Af Amer 154, Est GFR (MDRD) Non-Af 127, BUN/Creatinine Ratio 68.7 H, Glucose 128 H, Calcium 9.3 05/29/22 06:25: APTT 65.2 H Micro: Microbiology 05/21/22 14:07 Blood Culture (Wb) - Anticubital Right Blood Culture - Final No growth in 5 days. 05/20/22 08:17 Blood Culture (Wb) - Anticubital Right Blood Culture - Final No growth in 5 days. 05/14/22 05:55 Blood Culture (Wb) - Left Forearm Blood Culture - Final Presumptive C albicans 05/14/22 05:35 Blood Culture (Wb) - Right Forearm Blood Culture - Final No growth in 5 days. 05/12/22 22:50 Blood Culture (Wb) - Chest Blood Culture - Final No growth in 5 days. 05/12/22 22:29 Blood Culture (Wb) - Right Wrist Blood Culture - Final No growth in 5 days. 05/14/22 11:30 Urine Catheter - Isbell Urine Culture - Final Culture exhibits no growth. 05/13/22 09:30 Sputum, Induced/Lukens Gram Stain - Final 05/13/22 09:30 Sputum, Induced/Lukens Respiratory Culture - Final Presumptive C albicans 05/12/22 22:30 Urine, Catheterized Urine Culture - Final Culture exhibits no growth. 05/13/22 00:46 Urine Catheter - Catheter Legionella Antigen - Final 05/13/22 00:46 Urine Catheter - Catheter Streptococcus pneumoniae Antigen (M - Final 05/12/22 22:30 Nasal Secretion SARS-CoV-2 & FLU Antigen (Rapid) - Final Rhythm Strip Rhythm Strip: In and out of sinus rhythm Physical Exam Narrative General: Wakes up this somewhat tired HEENT: Atraumatic, normocephalic Eyes: Anicteric, normal conjunctiva, extraocular movements grossly intact Neck: Supple Respiratory: normal respiratory effort Cardiovascular: Regular rate GI: Soft, did not have any significant tenderness on palpation of the abdomen today Extremities: No edema Musculoskeletal: Does not move left lower extremity, minimal movement in left upper extremity Neuro: Left lower extremity no movement, minimal movement in right and left upper extremity Skin: No rashes appreciated Psych: Cooperative Assessment & Plan Assessment/Plan (1) S/P exploratory laparotomy: (2) Recurrent inguinal hernia of left side with obstruction: (3) Septic shock: (4) Aspiration pneumonia: (5) Acute respiratory failure with hypoxia: (6) Acute hypokalemia: (7) ROSALIE (acute kidney injury): (8) Acute hyponatremia: (9) Acute CVA (cerebrovascular accident): (10) Candidemia: (11) Altered mental status: PLAN: Plan #Acute CVA w/ residual L sided weakness s/p PEG tube 05/28 -After extubation had left-sided hemiparesis -CT of the brain showed large areas of abnormal edema in the parietal occipital lobes with smaller regions of abnormal edema in the cerebellum concerning for large acute infarctions versus hepatic encephalopathy. -CTA head and neck showed no evidence of hemodynamic currently significant stenosis -[facility] telestroke concerned for bilat ischemic stroke, neuro rec holding AC initially even w/ afib and start asa -high intensity statin -PT/OT -MRI of the brain showed large areas of restricted diffusion in the bilateral posterior cerebral hemispheres concerning for large acute infarct and small bilateral cerebellar infarcts as well as small acute lacunar infarct in the bilateral basal ganglia. -echo showed normal left ventricular size with normal left ventricular systolic function and EF of 65% with negative bubble study. -Now on therapeutic Lovenox -05/24: Remains on full dose Lovenox, mental status improving -05/25: NG remains in place, may need Dobbhoff or PEG tube if swallowing does not progress. Surgery on board. Continue speech therapy, PT, OT and discharge planning. -05/26: Speech recommending n.p.o. still, surgery to discuss PEG with family -05/28: PEG tube today -05/29: Okay for tube feeds to start today, did have some bleeding around PEG tube site yesterday. Heparin stopped and will resume Lovenox. Hemoglobin 7.7 and yesterday was 9.6, repeat hemoglobin this afternoon. May decrease further from dilution as she is going to receive some fluids that she is mildly tachycardic I suspect may be slightly dry especially giving uptrending BUN #Candidemia: -blood culture positive for presumptive rocky albicans. ID consulted. -on IV fluconazole as per ID. -repeat blood cultures ordered and pending -MIKO ordered; per cardiology, to be done Tuesday -05/24: MIKO no vegetations and repeat blood cultures no growth to date, will need 2 weeks of fluconazole, ID following. Remove CVC once alternate access can be established -05/25: Fluconazole for 2 weeks. CVC removed. Patient did have multiple liquid stools overnight, checking C. difficile and enteric panel -05/27: Only 1 stool overnight and there is no ability to get sample from night so no enteric samples have been collected. Remains on fluconazole -05/28: White blood cell count increasing again, afebrile at this time but patient difficulty expressing any discomfort. We will obtain UA and cultures. Low threshold for antibiotics if needed #Acute hypoxic respiratory failure due to aspiration pneumonia and ARDS -S/p extubation -Sputum culture is negative -s/p Vanco and Zosyn #Afib -heart rate is improving.off cardizem drip -now on therapeutic lovenox since it has been ~ 1 week since she was diagnosed with the stroke. -on metoprolol 12.5mg bid -05/27: Changed to heparin drip in preparation for PEG tube #Small bowel obstruction and incarcerated hernia with hematoma and incision site -s/p exploratory laparotomy -general surgery on board. -on tube feeds -management as per general surgery -NG tube in place -05/24: Repeat CT today due to concern for bulge, findings only suggestive of postop hematoma in the subcu tissues suggestive of postop changes. Discussed with surgery, will continue to monitor at this time. Discussed nutrition moving forward and given improving mental status holding off on PEG tube, can consider Dobbhoff moving forward or if patient continues to improve hopefully will be able to maintain nutrition on her own. -05/26: Speech still recommends n.p.o. on tube feeds, will likely need PEG tube -05/27: Changed to heparin drip in preparation for PEG tube, stop tube feeds at midnight and hold heparin at 5:30 AM in preparation for 845 PEG tube placement -05/29: PEG tube placed, okay for tube feeds today per surgery, heparin drip stopped and placed back on Lovenox #DVT ppx: Lovenox Silvana Dennis MD Time spent in the patient's overall evaluation,decision-making process, review of diagnostic data, adjustment of management, discussion with other providers, nursing nursing and ancillary staff involved in patient's care documentation, 30 minutes Charges/Coding Visit Charges Inpatient E&M: 22408 Subs Hosp L2
[2022-05-29] MEDS: 0.9% Normal Saline 1,000 ML 100 ML IV (11:37)
--- NOTE | 2022-05-29 12:04 | CASEMGMT ---
Spoke with [facility]Dysi from [facility], she is aware that TF will start today and pt is not ready for dc today.
[2022-05-29 12:20] LABS: Bedside Glucose 152 mg/dL (74-106)
[2022-05-29 13:14] LABS: Hematocrit 21.2 % (37-47)
--- NOTE | 2022-05-29 17:25 | PCM.HOSP.N ---
Hospitalist Note Went to evaluate patient due to hemoglobin downtrending and slight tachycardia earlier, patient resting comfortably with family member at bedside and had no complaints. Did not endorse any abdominal pain to me. Had no rebound, guarding, rigidity. Suspect that this is in part from the bleeding around the PEG tube in addition to some component of delusional as she is receiving fluids. Heart rate did come down and blood pressure stable. She is to receive 2 units of packed red blood cells.
[2022-05-29 17:31] LABS: Bedside Glucose 144 mg/dL (74-106)
[2022-05-30] VITALS (12 sets, daily range): BP systolic 116–144; BP diastolic 69–93; PULSE 82–104; RESP 16–18; TEMP 36.2–37.1; O2SAT 98–100; BMI 17.6
--- NOTE | 2022-05-30 00:03 | NURSING ---
0000 BG 125
[2022-05-30 01:20] LABS: Bedside Glucose 125 mg/dL (74-106)
[2022-05-30 04:46] LABS: Absolute Lymphocyte Count 2.02 X10^3/uL (0.83-4.51); Absolute Neutrophil Count 7.8 X10^3/uL (2.0-7.7); Basophil# 0.07 X10^3/uL; Basophil% 0.6 % (0-1); Eosinophil# 0.18 X10^3/uL; Eosinophils% 1.6 % (0-5); Hematocrit 26.9 % (37-47); Hemoglobin 8.8 g/dL (12.0-15.0); Lymphocyte # 2.02 X10^3/ul (0.83-4.51); Lymphocyte % 17.8 % (19-41); Mean Corp Hgb Conc 32.7 g/dL (32-36); Mean Corpuscular Hgb 31.2 pg (27.0-32.0); Mean Corpuscular Volume 95.4 fL (81-99); Monocyte# 0.89 X10^3/uL; Monocyte% 7.8 % (0-10); NRBC Flagged by Analyzer 0 % (0-5); Neutrophil # 7.82 X10^3/uL (2.7-7.7); Neutrophil % 68.7 % (47-70); Platelet Count 314 K/mm3 (150-450); RBC Distribution Width SD 58.7 fl (35.1-43.9); Red Blood Count 2.82 M/mm3 (4.2-5.4); White Blood Count 11.4 K/mm3 (4.4-11.0)
[2022-05-30 04:56] LABS: Anion Gap 4 (5-15); BUN 32 mg/dL (7-18); BUN/Creat Ratio 78.8 RATIO (10-20); Calcium,Total 8.2 mg/dL (8.5-10.1); Chloride 103 mmol/L (98-107); Creatinine, Serum 0.41 mg/dL (0.55-1.02); EST Glomerular Filtration Rate 171 mL/min (>60); Est Glom Filt Rate - Afr Amer 207 mL/min (>60); Estimated Creatinine Clearance 102.94 ml/min; Glucose 123 mg/dL (74-106); Potassium 3.8 mmol/L (3.5-5.1); Sodium Level 133 mmol/L (136-145)
--- NOTE | 2022-05-30 09:21 | PCM.PN.SRG ---
Subjective Subjective Patient received transfusion overnight. She does not describe any abdominal pain this morning and she is tolerating tube feeds. Objective Data Objective Data Vital Signs: Vital Signs Temp Pulse Resp BP Pulse Ox O2 Del Method O2 Flow Rate 97.2 F L 95 18 138/89 H 99 Room Air 2 05/30/22 03:30 05/30/22 03:30 05/30/22 03:30 05/30/22 03:30 05/30/22 03:30 05/30/22 03:30 05/18/22 14:00 FiO2 35 05/16/22 08:00 Oxygen Flow Rate (L/min) 2 Oxygen Delivery Method Room Air Weight: 96 lb 1.945 oz Body Mass Index (BMI) 17.6 Intake & Output: Intake and Output for Last 24 Hours 05/28/22 05/29/22 05/30/22 23:59 23:59 23:59 Intake Total 1251.10 / 1251.10 2483.15 / 2483.15 75 / 75 Output Total 275 / 575 300 / 300 Balance 1251.10 / 1251.10 2208.15 / 1908.15 -225 / -225 Lab / Micro Data Result Diagrams: 05/30/22 04:21 05/30/22 04:21 Labs: Laboratory Results - last 24 hr 05/29/22 11:41: POC Glucose 152 H 05/29/22 13:00: Hgb 7.0 L, Hct 21.2 L 05/29/22 15:54: Blood Type O POSITIVE, Antibody Screen NEGATIVE, Crossmatch See Detail 05/29/22 16:55: POC Glucose 144 H 05/30/22 00:01: POC Glucose 125 H 05/30/22 04:21: WBC 11.4 H, RBC 2.82 L, Hgb 8.8 L, Hct 26.9 L, MCV 95.4, MCH 31.2, MCHC 32.7, RDW Std Deviation 58.7 H, RDW Coeff of Audrey 17.0 H, Plt Count 314, MPV 9.0, Immature Gran % (Auto) 3.500 H, Neut % (Auto) 68.7, Lymph % (Auto) 17.8 L, [place] % (Auto) 7.8, Eos % (Auto) 1.6, Baso % (Auto) 0.6, Absolute Neuts (auto) 7.8 H, Absolute Lymphs (auto) 2.02, Nucleated RBC % 0 05/30/22 04:21: Sodium 133 L, Potassium 3.8, Chloride 103, Carbon Dioxide 26.0, Anion Gap 4 L, BUN 32 H, Creatinine 0.41 L, Estim Creat Clear Calc 102.94, Est GFR (MDRD) Af Amer 207, Est GFR (MDRD) Non-Af 171, BUN/Creatinine Ratio 78.8 H, Glucose 123 H, Calcium 8.2 L Micro: Microbiology 05/28/22 11:10 Blood Culture (Wb) - Left Hand Blood Culture - Preliminary No growth in 48 hours. 05/28/22 11:05 Blood Culture (Wb) - Anticubital Left Blood Culture - Preliminary No growth in 48 hours. 05/28/22 17:00 Urine, Random Urine Culture - Final Culture exhibits no growth. 05/21/22 14:07 Blood Culture (Wb) - Anticubital Right Blood Culture - Final No growth in 5 days. 05/20/22 08:17 Blood Culture (Wb) - Anticubital Right Blood Culture - Final No growth in 5 days. 05/14/22 05:55 Blood Culture (Wb) - Left Forearm Blood Culture - Final Presumptive C albicans 05/14/22 05:35 Blood Culture (Wb) - Right Forearm Blood Culture - Final No growth in 5 days. 05/12/22 22:50 Blood Culture (Wb) - Chest Blood Culture - Final No growth in 5 days. 05/12/22 22:29 Blood Culture (Wb) - Right Wrist Blood Culture - Final No growth in 5 days. 05/14/22 11:30 Urine Catheter - Isbell Urine Culture - Final Culture exhibits no growth. 05/13/22 09:30 Sputum, Induced/Lukens Gram Stain - Final 05/13/22 09:30 Sputum, Induced/Lukens Respiratory Culture - Final Presumptive C albicans 05/12/22 22:30 Urine, Catheterized Urine Culture - Final Culture exhibits no growth. 05/13/22 00:46 Urine Catheter - Catheter Legionella Antigen - Final 05/13/22 00:46 Urine Catheter - Catheter Streptococcus pneumoniae Antigen (M - Final 05/12/22 22:30 Nasal Secretion SARS-CoV-2 & FLU Antigen (Rapid) - Final Rhythm Strip Rhythm Strip: In and out of sinus rhythm Physical Exam Const oriented x3 Resp normal respiratory effort GI soft to palpation and non-tender Assessment & Plan Assessment/Plan (1) S/P exploratory laparotomy: PLAN: Patient required transfusion due to anemia yesterday. She did have some bleeding around her PEG tube site but she has not had much bleeding since I since the bolster down tighter. The dressings this morning appear dry. Continue to check H&H. Tube feeds are being tolerated. Jesus Lynn MD Pager: [facility] [address] [place] [address], [address] [place] [address] Office:
--- NOTE | 2022-05-30 09:59 | PN.HOSP_ITS ---
Reason for Visit Reason for Visit: Diagnoses Sepsis, unspecified organism (05/13/22) Candidal sepsis (05/13/22) Hypo-osmolality and hyponatremia (05/13/22) Hypokalemia (05/13/22) Metabolic encephalopathy (05/13/22) Unspecified atrial fibrillation (05/13/22) Cerebral infarction, unspecified (05/13/22) Hypotension, unspecified (05/13/22) Pneumonia, unspecified organism (05/13/22) Pneumonitis due to inhalation of food and vomit (05/13/22) Acute respiratory distress syndrome (05/13/22) Acute respiratory failure with hypoxia (05/13/22) Unilateral inguinal hernia, with obstruction, without gangrene, not specified as recurrent (05/13/22) Unilateral inguinal hernia, with obstruction, without gangrene, recurrent (05/13/22) Unspecified intestinal obstruction, unspecified as to partial versus complete obstruction (05/13/22) Acute kidney failure, unspecified (05/13/22) Cardiac murmur, unspecified (05/13/22) Altered mental status, unspecified (05/13/22) Severe sepsis with septic shock (05/13/22) Other specified abnormalities of plasma proteins (05/13/22) Personal history of other diseases of the digestive system (05/13/22) Other specified postprocedural states (05/13/22) Dependence on respirator [ventilator] status (05/13/22) Subjective Subjective Initially asleep and did not want to wake up to answer questions but eventually did open her eyes and was awake and alert and answered questions appropriately Objective Data Objective Data Vital Signs: Vital Signs Temp Pulse Resp BP Pulse Ox O2 Del Method O2 Flow Rate 97.2 F L 95 18 138/89 H 99 Room Air 2 05/30/22 03:30 05/30/22 03:30 05/30/22 03:30 05/30/22 03:30 05/30/22 03:30 05/30/22 03:30 05/18/22 14:00 FiO2 35 05/16/22 08:00 Oxygen Flow Rate (L/min) 2 Oxygen Delivery Method Room Air Weight: 43.6 kg Body Mass Index (BMI) 17.6 Intake & Output: Intake and Output for Last 24 Hours 05/28/22 05/29/2223 23:59 23:59 23:59 Intake Total 1251.10 / 1251.10 2483.15 / 2483.15 75 / 75 Output Total 275 / 575 300 / 300 Balance 1251.10 / 1251.10 2208.15 / 1908.15 -225 / -225 Lab / Micro Data Result Diagrams: 05/30/22 04:21 05/30/22 04:21 Labs: Laboratory Results - last 24 hr 05/29/22 11:41: POC Glucose 152 H 05/29/22 13:00: Hgb 7.0 L, Hct 21.2 L 05/29/22 15:54: Blood Type O POSITIVE, Antibody Screen NEGATIVE, Crossmatch See Detail 05/29/22 16:55: POC Glucose 144 H 05/30/22 00:01: POC Glucose 125 H 05/30/22 04:21: WBC 11.4 H, RBC 2.82 L, Hgb 8.8 L, Hct 26.9 L, MCV 95.4, MCH 31.2, MCHC 32.7, RDW Std Deviation 58.7 H, RDW Coeff of Audrey 17.0 H, Plt Count 314, MPV 9.0, Immature Gran % (Auto) 3.500 H, Neut % (Auto) 68.7, Lymph % (Auto) 17.8 L, [place] % (Auto) 7.8, Eos % (Auto) 1.6, Baso % (Auto) 0.6, Absolute Neuts (auto) 7.8 H, Absolute Lymphs (auto) 2.02, Nucleated RBC % 0 05/30/22 04:21: Sodium 133 L, Potassium 3.8, Chloride 103, Carbon Dioxide 26.0, Anion Gap 4 L, BUN 32 H, Creatinine 0.41 L, Estim Creat Clear Calc 102.94, Est GFR (MDRD) Af Amer 207, Est GFR (MDRD) Non-Af 171, BUN/Creatinine Ratio 78.8 H, Glucose 123 H, Calcium 8.2 L Micro: Microbiology 05/28/22 11:10 Blood Culture (Wb) - Left Hand Blood Culture - Preliminary No growth in 48 hours. 05/28/22 11:05 Blood Culture (Wb) - Anticubital Left Blood Culture - Preliminary No growth in 48 hours. 05/28/22 17:00 Urine, Random Urine Culture - Final Culture exhibits no growth. 05/21/22 14:07 Blood Culture (Wb) - Anticubital Right Blood Culture - Final No growth in 5 days. 05/20/22 08:17 Blood Culture (Wb) - Anticubital Right Blood Culture - Final No growth in 5 days. 05/14/22 05:55 Blood Culture (Wb) - Left Forearm Blood Culture - Final Presumptive C albicans 05/14/22 05:35 Blood Culture (Wb) - Right Forearm Blood Culture - Final No growth in 5 days. 05/12/22 22:50 Blood Culture (Wb) - Chest Blood Culture - Final No growth in 5 days. 05/12/22 22:29 Blood Culture (Wb) - Right Wrist Blood Culture - Final No growth in 5 days. 05/14/22 11:30 Urine Catheter - Isbell Urine Culture - Final Culture exhibits no growth. 05/13/22 09:30 Sputum, Induced/Lukens Gram Stain - Final 05/13/22 09:30 Sputum, Induced/Lukens Respiratory Culture - Final Presumptive C albicans 05/12/22 22:30 Urine, Catheterized Urine Culture - Final Culture exhibits no growth. 05/13/22 00:46 Urine Catheter - Catheter Legionella Antigen - Final 05/13/22 00:46 Urine Catheter - Catheter Streptococcus pneumoniae Antigen (M - Final 05/12/22 22:30 Nasal Secretion SARS-CoV-2 & FLU Antigen (Rapid) - Final Rhythm Strip Rhythm Strip: In and out of sinus rhythm Physical Exam Narrative General: Alert, no apparent distress HEENT: Atraumatic, normocephalic Eyes: Anicteric, normal conjunctiva, extraocular movements grossly intact Neck: Supple Respiratory: No wheezes or rhonchi, normal respiratory effort Cardiovascular: Regular rate and rhythm GI: Fairly soft, no tenderness that she reported, no rebound, guarding, rigidity. Hematoma site feels roughly the same size Extremities: No edema Musculoskeletal: Does not move left lower extremity Neuro: Weak in left upper extremity and does not move left lower extremity Skin: No rashes appreciated Psych: Eventually woke up and was cooperative Assessment & Plan Assessment/Plan (1) S/P exploratory laparotomy: (2) Recurrent inguinal hernia of left side with obstruction: (3) Septic shock: (4) Aspiration pneumonia: (5) Acute respiratory failure with hypoxia: (6) Acute hypokalemia: (7) ROSALIE (acute kidney injury): (8) Acute hyponatremia: (9) Acute CVA (cerebrovascular accident): (10) Candidemia: (11) Altered mental status: PLAN: Plan #Acute CVA w/ residual L sided weakness s/p PEG tube 05/28 -After extubation had left-sided hemiparesis -CT of the brain showed large areas of abnormal edema in the parietal occipital lobes with smaller regions of abnormal edema in the cerebellum concerning for large acute infarctions versus hepatic encephalopathy. -CTA head and neck showed no evidence of hemodynamic currently significant stenosis -[facility] telestroke concerned for bilat ischemic stroke, neuro rec holding AC i nitially even w/ afib and start asa -high intensity statin -PT/OT -MRI of the brain showed large areas of restricted diffusion in the bilateral posterior cerebral hemispheres concerning for large acute infarct and small bilateral cerebellar infarcts as well as small acute lacunar infarct in the bila teral basal ganglia. -echo showed normal left ventricular size with normal left ventricular systolic function and EF of 65% with negative bubble study. -Now on therapeutic Lovenox -05/24: Remains on full dose Lovenox, mental status improving -05/25: NG remains in place, may need Dobbhoff or PEG tube if swallowing does not progress. Surgery on board. Continue speech therapy, PT, OT and discharge pl giovani. -05/26: Speech recommending n.p.o. still, surgery to discuss PEG with family -05/28: PEG tube today -05/29: Okay for tube feeds to start today, did have some bleeding around PEG tube site yesterday. Heparin stopped and will resume Lovenox. Hemoglobin 7.7 and yesterday was 9.6, repeat hemoglobin this afternoon. May decrease further from dilution as she is going to receive some fluids that she is mildly tachycardic I suspect may be slightly dry especially giving uptrending BUN -05/30: Working with speech, may be able to begin taking some food by mouth, will supplement with tube feeds until she can maintain nutrition orally. Patient to go to [facility] once medically stable, hopefully early this week #Worsening anemia -Hemoglobin at baseline appears to be within normal limits however has fluctuated since 05/15 -Did downtrend after PEG tube placement as she had a supratherapeutic PTT when it was resumed after placement she had a decent amount of bleeding around this area -She received 2 units of packed red blood cells and her PEG tube was also cinched down which has helped and the bleeding has improved significantly. Hemoglobin 8.8 today after 2 units. No abdominal pain, on subcu Lovenox therapeutic twice daily. In the afternoon there is some reported increased bleeding, will check CBC #Candidemia: -blood culture positive for presumptive rocky albicans. ID consulted. -on IV fluconazole as per ID. -repeat blood cultures ordered and pending -MIKO ordered; per cardiology, to be done Tuesday -05/24: MIKO no vegetations and repeat blood cultures no growth to date, will need 2 weeks of fluconazole, ID following. Remove CVC once alternate access can be established -05/25: Fluconazole for 2 weeks. CVC removed. Patient did have multiple liquid stools overnight, checking C. difficile and enteric panel -05/27: Only 1 stool overnight and there is no ability to get sample from night so no enteric samples have been collected. Remains on fluconazole -05/28: White blood cell count increasing again, afebrile at this time but patient difficulty expressing any discomfort. We will obtain UA and cultures. Low threshold for antibiotics if needed -05/30: White blood cell count back down to 11.4 without intervention all cultures no growth to date. #Acute hypoxic respiratory failure due to aspiration pneumonia and ARDS -S/p extubation -Sputum culture is negative -s/p Vanco and Zosyn #Afib -heart rate is improving.off cardizem drip -now on therapeutic lovenox since it has been ~ 1 week since she was diagnosed with the stroke. -on metoprolol 12.5mg bid -05/27: Changed to heparin drip in preparation for PEG tube -05/30: Switch back to subcu Lovenox #Small bowel obstruction and incarcerated hernia with hematoma and incision site -s/p exploratory laparotomy -general surgery on board. -on tube feeds -management as per general surgery -NG tube in place -05/24: Repeat CT today due to concern for bulge, findings only suggestive of postop hematoma in the subcu tissues suggestive of postop changes. Discussed with surgery, will continue to monitor at this time. Discussed nutrition moving forward and given improving mental status holding off on PEG tube, can consider Dobbhoff moving forward or if patient continues to improve hopefully will be able to maintain nutrition on her own. -05/26: Speech still recommends n.p.o. on tube feeds, will likely need PEG tube -05/27: Changed to heparin drip in preparation for PEG tube, stop tube feeds at midnight and hold heparin at 5:30 AM in preparation for 845 PEG tube placement -05/29: PEG tube placed, okay for tube feeds today per surgery, heparin drip stopped and placed back on Lovenox #DVT ppx: Lovenox therapeutic Silvana Dennis MD Time spent in the patient's overall evaluation,decision-making process, review of diagnostic data, adjustment of management, discussion with other providers, nursing nursing and ancillary staff involved in patient's care documentation, 30 minutes Charges/Coding Visit Charges Inpatient E&M: 14215 Subs Hosp L2
[2022-05-30] MEDS: Enoxaparin 60 MG/0.6 ML Syringe 50 MG SC (10:20)
[2022-05-30] MEDS: Metoprolol Tartrate 25 MG Tablet 12.5 MG NG ×2 (10:21→23:42)
[2022-05-30] MEDS: Fluconazole Suspension 40 MG/ML 35 ML Bottle 400 MG PO (10:24)
[2022-05-30] MEDS: Menthol/Lanolin/Calamine/Znox 113 GM Tube 1 APPLIC TOPICAL ×2 (10:26→23:42)
[2022-05-30] MEDS: 0.9% Saline Lock 10 ML Syringe IV ×3 (11:16→23:45)
[2022-05-30 12:40] LABS: Bedside Glucose 134 mg/dL (74-106)
[2022-05-30 17:16] LABS: Absolute Lymphocyte Count 2.54 X10^3/uL (0.83-4.51); Absolute Neutrophil Count 7.3 X10^3/uL (2.0-7.7); Basophil# 0.05 X10^3/uL; Basophil% 0.4 % (0-1); Eosinophil# 0.24 X10^3/uL; Eosinophils% 2.1 % (0-5); Hematocrit 23.8 % (37-47); Hemoglobin 7.8 g/dL (12.0-15.0); Lymphocyte # 2.54 X10^3/ul (0.83-4.51); Lymphocyte % 22.1 % (19-41); Mean Corp Hgb Conc 32.8 g/dL (32-36); Mean Corpuscular Hgb 31.1 pg (27.0-32.0); Mean Corpuscular Volume 94.8 fL (81-99); Mean Platelet Vol. 8.6 fl (6.2-12.0); Monocyte% 8.7 % (0-10); NRBC Flagged by Analyzer 0 % (0-5); Neutrophil # 7.27 X10^3/uL (2.7-7.7); Neutrophil % 63.5 % (47-70); Platelet Count 293 K/mm3 (150-450); RBC Distribution Width SD 58.4 fl (35.1-43.9); Red Blood Count 2.51 M/mm3 (4.2-5.4); White Blood Count 11.5 K/mm3 (4.4-11.0)
[2022-05-30] MEDS: Vital AF 1.2 Cal Liquid 1,000 ML 45 ML GT (18:53)
[2022-05-30 19:50] LABS: Bedside Glucose 104 mg/dL (74-106)
[2022-05-31] VITALS (7 sets, daily range): BP systolic 117–136; BP diastolic 78–93; PULSE 78–105; RESP 14–18; TEMP 36.6–37; O2SAT 97–100; BMI 17.8
[2022-05-31] MEDS: Enoxaparin 60 MG/0.6 ML Syringe 50 MG SC ×2 (00:05→22:45)
[2022-05-31 06:36] LABS: Hematocrit 29.3 % (37-47); Hemoglobin 9.6 g/dL (12.0-15.0); Mean Corp Hgb Conc 32.8 g/dL (32-36); Mean Corpuscular Hgb 30.8 pg (27.0-32.0); Mean Corpuscular Volume 93.9 fL (81-99); Mean Platelet Vol. 9.2 fl (6.2-12.0); POSITIVE COUNT YES; POSITIVE MORPHOLOGY YES; Platelet Count 275 K/mm3 (150-450); RBC Distribution Width CV 16.3 % (11.6-14.6); RBC Distribution Width SD 55.1 fl (35.1-43.9); Red Blood Count 3.12 M/mm3 (4.2-5.4); White Blood Count 11.6 K/mm3 (4.4-11.0)
[2022-05-31 06:38] LABS: Differential Indicated MANUAL DIFF
[2022-05-31 06:43] LABS: ALB/GLOB Ratio 0.5 RATIO (0.9-2.4); AST(SGOT) 33 U/L (15-37); Alanine Aminotransfer ALT/SGPT 33 U/L (13-56); Albumin, Serum 1.8 g/dL (3.2-5.0); Alkaline Phosphatase 138 U/L (45-117); Anion Gap 4 (5-15); BUN 26 mg/dL (7-18); BUN/Creat Ratio 80.5 RATIO (10-20); Calcium,Total 8.1 mg/dL (8.5-10.1); Chloride 101 mmol/L (98-107); Creatinine, Serum 0.32 mg/dL (0.55-1.02); EST Glomerular Filtration Rate 222 mL/min (>60); Est Glom Filt Rate - Afr Amer 269 mL/min (>60); Estimated Creatinine Clearance 132.81 ml/min; Globulin 3.5 g/dL (2.2-4.2); Glucose 105 mg/dL (74-106); Potassium 3.8 mmol/L (3.5-5.1); Protein, Total 5.3 g/dL (6.4-8.2); Sodium Level 133 mmol/L (136-145)
--- NOTE | 2022-05-31 07:28 | PCM.PN.SRG ---
Subjective Subjective Patient continues to have bleeding at her PEG site which started over the weekend. Patient is currently on Lovenox as question of the heparin level is more difficult to keep steady. Patient did not have bleeding Tuesday night but then began bleeding on Tuesday through the night. Patient did receive packed red blood cells over the weekend due to this. Objective Data Objective Data Vital Signs: Vital Signs Temp Pulse Resp BP Pulse Ox O2 Del Method O2 Flow Rate 98 F 90 18 132/84 H 99 Room Air 2 05/31/22 05:31 05/31/22 05:31 05/31/22 05:31 05/31/22 05:31 05/31/22 05:31 05/31/22 05:31 05/18/22 14:00 FiO2 35 05/16/22 08:00 Oxygen Flow Rate (L/min) 2 Oxygen Delivery Method Room Air Weight: 96 lb 12.527 oz Body Mass Index (BMI) 17.8 Intake & Output: Intake and Output for Last 24 Hours 05/29/22 05/30/22 05/31/22 23:59 23:59 23:59 Intake Total 2483.15 / 2483.15 1698 / 1698 75 / 75 Output Total 275 / 575 775 / 1175 800 / 800 Balance 2208.15 / 1908.15 923 / 523 -725 / -725 Lab / Micro Data Result Diagrams: 05/31/22 13:35 05/31/22 05:29 Labs: Laboratory Results - last 24 hr 05/29/22 15:54: Blood Type O POSITIVE, Antibody Screen NEGATIVE, Crossmatch See Detail 05/30/22 12:08: POC Glucose 134 H 05/30/22 16:58: WBC 11.5 H, RBC 2.51 L, Hgb 7.8 L, Hct 23.8 L, MCV 94.8, MCH 31.1, MCHC 32.8, RDW Std Deviation 58.4 H, RDW Coeff of Audrey 17.0 H, Plt Count 293, MPV 8.6, Immature Gran % (Auto) 3.200 H, Neut % (Auto) 63.5, Lymph % (Auto) 22.1, [place] % (Auto) 8.7, Eos % (Auto) 2.1, Baso % (Auto) 0.4, Absolute Neuts (auto) 7.3, Absolute Lymphs (auto) 2.54, Nucleated RBC % 0 05/30/22 19:29: POC Glucose 104 05/31/22 05:29: WBC 11.6 H, RBC 3.12 L, Hgb 9.6 L, Hct 29.3 L, MCV 93.9, MCH 30.8, MCHC 32.8, RDW Std Deviation 55.1 H, RDW Coeff of Audrey 16.3 H, Plt Count 275, MPV 9.2, Neut % (Auto) Not Reportable 05/31/22 05:29: Sodium 133 L, Potassium 3.8, Chloride 101, Carbon Dioxide 28.0, Anion Gap 4 L, BUN 26 H, Creatinine 0.32 L, Estim Creat Clear Calc 132.81, Est GFR (MDRD) Af Amer 269, Est GFR (MDRD) Non-Af 222, BUN/Creatinine Ratio 80.5 H, Glucose 105, Calcium 8.1 L, Total Bilirubin 0.90, AST 33, ALT 33, Alkaline Phosphatase 138 H, Total Protein 5.3 L, Albumin 1.8 L, Globulin 3.5, Albumin/Globulin Ratio 0.5 L Micro: Microbiology 05/28/22 11:10 Blood Culture (Wb) - Left Hand Blood Culture - Preliminary No growth in 48 hours. 05/28/22 11:05 Blood Culture (Wb) - Anticubital Left Blood Culture - Preliminary No growth in 48 hours. 05/28/22 17:00 Urine, Random Urine Culture - Final Culture exhibits no growth. 05/21/22 14:07 Blood Culture (Wb) - Anticubital Right Blood Culture - Final No growth in 5 days. 05/20/22 08:17 Blood Culture (Wb) - Anticubital Right Blood Culture - Final No growth in 5 days. 05/14/22 05:55 Blood Culture (Wb) - Left Forearm Blood Culture - Final Presumptive C albicans 05/14/22 05:35 Blood Culture (Wb) - Right Forearm Blood Culture - Final No growth in 5 days. 05/12/22 22:50 Blood Culture (Wb) - Chest Blood Culture - Final No growth in 5 days. 05/12/22 22:29 Blood Culture (Wb) - Right Wrist Blood Culture - Final No growth in 5 days. 05/14/22 11:30 Urine Catheter - Isbell Urine Culture - Final Culture exhibits no growth. 05/13/22 09:30 Sputum, Induced/Lukens Gram Stain - Final 05/13/22 09:30 Sputum, Induced/Lukens Respiratory Culture - Final Presumptive C albicans 05/12/22 22:30 Urine, Catheterized Urine Culture - Final Culture exhibits no growth. 05/13/22 00:46 Urine Catheter - Catheter Legionella Antigen - Final 05/13/22 00:46 Urine Catheter - Catheter Streptococcus pneumoniae Antigen (M - Final 05/12/22 22:30 Nasal Secretion SARS-CoV-2 & FLU Antigen (Rapid) - Final Rhythm Strip Rhythm Strip: In and out of sinus rhythm Physical Exam Const no apparent distress Constitutional Narrative: Oriented Resp normal respiratory effort Cardio regular rate GI GI Narrative: Slow oozing at PEG site to the right of PEG?saturated dressings over top. Midline incision ecchymosis resolving, no active drainage?tender to palpation. Extremity Extremity Narrative: The patient does not move the left upper extremity or left lower extremity on command. Minimal movement of right lower extremity, follow commands with the right upper extremity. Assessment & Plan Assessment/Plan (1) S/P exploratory laparotomy: (2) Recurrent inguinal hernia of left side with obstruction: (3) Septic shock: (4) Aspiration pneumonia: (5) Acute respiratory failure with hypoxia: (6) Acute hypokalemia: (7) ROSALIE (acute kidney injury): (8) Acute hyponatremia: (9) Acute CVA (cerebrovascular accident): (10) Candidemia: (11) Blood loss anemia: PLAN: Plan Bleeding at the PEG site did remove dressing and replace with a drain sponge under the bumper as well as over and a pressure dressing over the top. Lovenox will be held this morning. Speech following patient is allowed some p.o. continue tube feeds via PEG. Acute CVA-continue exams- PT/OT--dispo to rehab when ready for DC WBC 11.6, continue IV-Per ID-- abx-fluconazole Lovenox/PPI Tahmina Wayne M.D. Pager: [phone] [facility] [address] [place] [address], [facility], [address] [place] [id number] Office: [phone]
[2022-05-31 07:38] LABS: Lymphocyte 24 % (19-41); Metamyelocyte 1 % (0-1); Monocyte 2 % (0-10); Myelocyte 4 % (0-0); Neutrophil-Band 1 % (0-5); Neutrophil-Segmented 68 % (47-70); Total Cells Counted 100 (MANUAL DIFF)
[2022-05-31 07:39] LABS: Platelet Estimate ADEQUATE (ADEQ); Promyelocyte 4 % (0-0); Red Cell Morphology NORM C+C NORMAL (NORM C&C)
[2022-05-31] MEDS: Menthol/Lanolin/Calamine/Znox 113 GM Tube 1 APPLIC TOPICAL ×2 (09:50→22:45)
[2022-05-31] MEDS: Metoprolol Tartrate 25 MG Tablet 12.5 MG NG ×2 (09:51→22:44)
[2022-05-31] MEDS: Fluconazole Suspension 40 MG/ML 35 ML Bottle 400 MG PO (10:39)
--- NOTE | 2022-05-31 11:26 | CASEMGMT ---
Addendum entered by Melissa Daniel 05/31/22 12:46: Social Work SW heard back from [facility] requesting additional updates, updates sent. JAMIE Dailey Original Note: Social Work SW spoke w/physician, pt is likely not ready for discharge today. SW sent updates to [facility] via [facility] and let them know pt is not ready today. SW will continue to follow for discharge to [facility] when ready. JAMIE Dailey
--- NOTE | 2022-05-31 12:38 | PCM.PN.BLA ---
Progress Note 0900- Patient evaluated resting comfortably in bed. Abdominal dressing was removed form around the PEG tube site. Slow consistent ooze was noted from the medial upper portion of the skin at the PEG tube site. Dressing removed had a small amount of bright red blood on the drain sponge. Area was cleansed with normal saline. Five (5) silver nitrate sticks were used to assist in slowing down the bleeding. After the fifth Nitrate stick, the bleeding had become a very slow ooze. New drain sponge was applied followed by an ABD and paper tape in a pressure dressing style. There was also noted to be oozing more from the midline incision. This area was cleansed with normal saline and new dry gauze was applied over top with paper tape. No silver nitrate was used in this area. H&H was ordered. Lovenox held for this morning dose. 1200- Patient re-evaluated. Very small, less than a finger tip, of bright red blood on the drain sponge at the PEG tube site. Medial upper corner appears to have coagulated at this time. ABD reapplied followed by pressure tape dressing. Midline incision with very small amount of bleeding noted. Dressing left in place. No saturated dressing were noted at this time. Lovenox to resume later tonight.
[2022-05-31 13:21] LABS: Pathologist Review Reviewed
[2022-05-31 13:47] LABS: Hematocrit 26.8 % (37-47); Hemoglobin 8.9 g/dL (12.0-15.0)
--- NOTE | 2022-05-31 15:02 | PN_ITS ---
Subjective Subjective Patient seen and examined. She had no active complaints. She denied any fever, chills, cough, chest pain, palpitations, dizziness, nausea, vomiting or diarrhea. Review of systems was otherwise negative. Objective Data Objective Data Vital Signs: Vital Signs Temp Pulse Resp BP Pulse Ox O2 Del Method O2 Flow Rate 97.8 F 105 H 14 127/93 H 99 Room Air 2 05/31/22 10:03 05/31/22 10:03 05/31/22 10:03 05/31/22 10:03 05/31/22 10:03 05/31/22 10:12 05/18/22 14:00 FiO2 35 05/16/22 08:00 Oxygen Flow Rate (L/min) 2 Oxygen Delivery Method Room Air Weight: 96 lb 12.527 oz Body Mass Index (BMI) 17.8 Intake & Output: Intake and Output for Last 24 Hours 05/29/22 05/30/22 05/31/22 23:59 23:59 23:59 Intake Total 2483.15 / 2483.15 1698 / 1698 260 / 260 Output Total 275 / 575 775 / 1175 800 / 800 Balance 2208.15 / 1908.15 923 / 523 -540 / -540 Lab / Micro Data Result Diagrams: 05/31/22 13:35 05/31/22 05:29 Labs: Laboratory Results - last 24 hr 05/29/22 15:54: Blood Type O POSITIVE, Antibody Screen NEGATIVE, Crossmatch See Detail 05/30/22 16:58: WBC 11.5 H, RBC 2.51 L, Hgb 7.8 L, Hct 23.8 L, MCV 94.8, MCH 31.1, MCHC 32.8, RDW Std Deviation 58.4 H, RDW Coeff of Audrey 17.0 H, Plt Count 293, MPV 8.6, Immature Gran % (Auto) 3.200 H, Neut % (Auto) 63.5, Lymph % (Auto) 22.1, Eagle % (Auto) 8.7, Eos % (Auto) 2.1, Baso % (Auto) 0.4, Absolute Neuts (auto) 7.3, Absolute Lymphs (auto) 2.54, Nucleated RBC % 0 05/30/22 19:29: POC Glucose 104 05/31/22 05:29: WBC 11.6 H, RBC 3.12 L, Hgb 9.6 L, Hct 29.3 L, MCV 93.9, MCH 30.8, MCHC 32.8, RDW Std Deviation 55.1 H, RDW Coeff of Audrey 16.3 H, Plt Count 275, MPV 9.2, Neut % (Auto) Not Reportable, Absolute Neuts (auto) 8.0 H, Absolute Lymphs (auto) 2.80, Total Counted 100, Neutrophils % (Manual) 68, Band Neutrophils % 1, Lymphocytes % (Manual) 24, Monocytes % (Manual) 2, Metamyelocytes % 1, Myelocytes % 4 H, Promyelocytes % 4 H, Diff Path Review Reviewed, Platelet Estimate ADEQUATE, RBC Morphology NORM C+C 05/31/22 05:29: Sodium 133 L, Potassium 3.8, Chloride 101, Carbon Dioxide 28.0, Anion Gap 4 L, BUN 26 H, Creatinine 0.32 L, Estim Creat Clear Calc 132.81, Est GFR (MDRD) Af Amer 269, Est GFR (MDRD) Non-Af 222, BUN/Creatinine Ratio 80.5 H, Glucose 105, Calcium 8.1 L, Total Bilirubin 0.90, AST 33, ALT 33, Alkaline Phosphatase 138 H, Total Protein 5.3 L, Albumin 1.8 L, Globulin 3.5, Albumin/Globulin Ratio 0.5 L 05/31/22 13:35: Hgb 8.9 L, Hct 26.8 L Micro: Microbiology 05/28/22 11:10 Blood Culture (Wb) - Left Hand Blood Culture - Preliminary No growth in 48 hours. 05/28/22 11:05 Blood Culture (Wb) - Anticubital Left Blood Culture - Preliminary No growth in 48 hours. 05/28/22 17:00 Urine, Random Urine Culture - Final Culture exhibits no growth. 05/21/22 14:07 Blood Culture (Wb) - Anticubital Right Blood Culture - Final No growth in 5 days. 05/20/22 08:17 Blood Culture (Wb) - Anticubital Right Blood Culture - Final No growth in 5 days. 05/14/22 05:55 Blood Culture (Wb) - Left Forearm Blood Culture - Final Presumptive C albicans 05/14/22 05:35 Blood Culture (Wb) - Right Forearm Blood Culture - Final No growth in 5 days. 05/12/22 22:50 Blood Culture (Wb) - Chest Blood Culture - Final No growth in 5 days. 05/12/22 22:29 Blood Culture (Wb) - Right Wrist Blood Culture - Final No growth in 5 days. 05/14/22 11:30 Urine Catheter - Isbell Urine Culture - Final Culture exhibits no growth. 05/13/22 09:30 Sputum, Induced/Lukens Gram Stain - Final 05/13/22 09:30 Sputum, Induced/Lukens Respiratory Culture - Final Presumptive C albicans 05/12/22 22:30 Urine, Catheterized Urine Culture - Final Culture exhibits no growth. 05/13/22 00:46 Urine Catheter - Catheter Legionella Antigen - Final 05/13/22 00:46 Urine Catheter - Catheter Streptococcus pneumoniae Antigen (M - Final 05/12/22 22:30 Nasal Secretion SARS-CoV-2 & FLU Antigen (Rapid) - Final Rhythm Strip Rhythm Strip: In and out of sinus rhythm Physical Exam Const alert, oriented x3 and no apparent distress Constitutional Narrative: frail, emaciated HEENT normocephalic and moist oral mucous membranes Eyes PERRL and EOMs intact bilaterally Neck supple and no JVD Lymph Lymphatic: no lymphadenopathy noted Resp Resp Narrative: mildly diminished breath sounds bibasally, no wheezes or crackles. On room air. Cardio regular rate, regular rhythm, S1 normal heart sound and S2 normal heart sound GI normal to inspection, nondistended, normoactive bowel sounds, soft to palpation and non-tender GI Narrative: PEG tube in place; small periumbilical hemaoma at surgical site. Surgical site healing well Extremity normal capillary refill and no clubbing, cyanosis or edema Skin General Skin Exam: no breakdown Neuro CN's II-XII intact bilaterally, no focal motor deficits and no sensory deficits noted Motor Exam: strength 5/5 throughout and general weakness Psych thought process normal Mood & Affect: flat affect Assessment & Plan Assessment/Plan (1) Blood loss anemia: (2) Candidemia: PLAN: Plan #Acute hypoxic respiratory failure due to aspiration pneumonia and ARDS * extubated and now on room air. * sputum cultures are negative * completed a course of antibiotics * remains on room air * #Acute CVA * patient was noted to have left sided hemiparesis after extubation (not right sided hemiparesis as noted in previous documentation) * CT of the brain showed large areas of abnormal edema in the parietal occipital lobes with smaller regions of abnormal edema in the cerebellum concerning for large acute infarctions versus hepatic encephalopathy. * CTA head and neck showed no evidence of hemodynamic currently significant stenosis * on aspirin and lovenox; lovenox held due to hematoma at periumbilical area and anemia * on high intensity statin * PT OT on board. * MRI of the brain showed large areas of restricted diffusion in the bilateral posterior cerebral hemispheres concerning for large acute infarct and small bilateral cerebellar infarcts as well as small acute lacunar infarct in the bilateral basal ganglia. * 2D echo showed normal left ventricular size with normal left ventricular systolic function and EF of 65% with negative bubble study. #Candidemia: * ?blood culture positive for resumptive rocky albicans. ID consulted. * on IV fluconazole as per ID. * repeat blood cultures ordered and pending * MIKO showed no evidence of vegetations * to be on IV fluconazole for a total of 2 weeks. * #Afib * heart rate improved. * on therapeutic lovenox * on metoprolol 12.5mg bid * #ROSALIE * resolved. #Small bowel obstruction and incarcerated hernia * s/p exploratory laparotomy * general surgery on board. * on tube feeds * management as per general surgery * has PEG tube in place * has hematoma at site of surgery. Per surgery, to continue monitoring * * #Hypokalemia, hypomagnesemia and hypophosphatemia:resolved * #Anemia: resolved. Will monitor. She had some bleeding from PEG tube site which has improved. #Hypotension: resolved. #Nutrition: on tube feed via PEG tube DVT prophylaxis: lovenox therapeutic dose. Disposition:awaiting placement Charges/Coding Visit Charges Inpatient E&M: 60497 Subs Hosp L2
[2022-05-31] MEDS: Vital AF 1.2 Cal Liquid 1,000 ML 45 ML GT (17:05)
[2022-06-01] VITALS (7 sets, daily range): BP systolic 114–134; BP diastolic 64–91; PULSE 94–100; RESP 16–18; TEMP 36.4–36.9; O2SAT 98–100; BMI 18.3
[2022-06-01] MEDS: 0.9% Saline Lock 10 ML Syringe IV ×2 (03:23→08:39)
[2022-06-01 04:48] LABS: Hematocrit 27.9 % (37-47); Hemoglobin 9.1 g/dL (12.0-15.0); Mean Corp Hgb Conc 32.6 g/dL (32-36); Mean Corpuscular Volume 94.9 fL (81-99); Mean Platelet Vol. 9.1 fl (6.2-12.0); POSITIVE COUNT YES; POSITIVE MORPHOLOGY YES; Platelet Count 273 K/mm3 (150-450); RBC Distribution Width CV 16.1 % (11.6-14.6); RBC Distribution Width SD 54.4 fl (35.1-43.9); Red Blood Count 2.94 M/mm3 (4.2-5.4); White Blood Count 9.8 K/mm3 (4.4-11.0)
[2022-06-01 04:54] LABS: Differential Indicated MANUAL DIFF
[2022-06-01 05:15] LABS: ALB/GLOB Ratio 0.6 RATIO (0.9-2.4); AST(SGOT) 44 U/L (15-37); Alanine Aminotransfer ALT/SGPT 41 U/L (13-56); Albumin, Serum 1.9 g/dL (3.2-5.0); Alkaline Phosphatase 160 U/L (45-117); Anion Gap 5 (5-15); BUN 24 mg/dL (7-18); BUN/Creat Ratio 76.2 RATIO (10-20); Calcium,Total 8.4 mg/dL (8.5-10.1); Chloride 101 mmol/L (98-107); Creatinine, Serum 0.32 mg/dL (0.55-1.02); EST Glomerular Filtration Rate 229 mL/min (>60); Est Glom Filt Rate - Afr Amer 277 mL/min (>60); Estimated Creatinine Clearance 137.04 ml/min; Globulin 3.3 g/dL (2.2-4.2); Glucose 106 mg/dL (74-106); Potassium 3.8 mmol/L (3.5-5.1); Protein, Total 5.2 g/dL (6.4-8.2); Sodium Level 135 mmol/L (136-145)
[2022-06-01 05:49] LABS: Anisocytosis 1+
[2022-06-01 05:52] LABS: Absolute Neutrophil Count 7.3 X10^3/uL (2.0-7.7)
[2022-06-01 05:53] LABS: Absolute Lymphocyte Count 1.66 X10^3/uL (0.83-4.51); Eosinophil 1 % (0-5); Lymphocyte 17 % (19-41); Monocyte 3 % (0-10); Myelocyte 3 % (0-0); Neutrophil-Segmented 75 % (47-70); Platelet Estimate ADEQUATE (ADEQ); Promyelocyte 1 % (0-0); Red Cell Morphology NORM C+C NORMAL (NORM C&C); Total Cells Counted 100 (MANUAL DIFF)
[2022-06-01] MEDS: Menthol/Lanolin/Calamine/Znox 113 GM Tube 1 APPLIC TOPICAL ×2 (08:30→22:40)
[2022-06-01] MEDS: Enoxaparin 60 MG/0.6 ML Syringe 50 MG SC ×2 (08:30→22:41)
[2022-06-01] MEDS: Metoprolol Tartrate 25 MG Tablet 12.5 MG NG ×2 (08:31→22:47)
[2022-06-01] MEDS: Fluconazole Suspension 40 MG/ML 35 ML Bottle 400 MG PO (08:31)
--- NOTE | 2022-06-01 08:50 | CASEMGMT ---
Per physician patient may be ready for discharge tomorrow. SASHA notified [facility] via [facility]. Margarita Greenwood BOXING INSPECTOR ELIA
--- NOTE | 2022-06-01 08:53 | PN.SURG_ITS ---
Subjective Subjective Patient no further oozing from her PEG site since yesterday afternoon. Lovenox was restarted last night. Objective Data Objective Data Vital Signs: Vital Signs Temp Pulse Resp BP Pulse Ox O2 Del Method O2 Flow Rate 98.4 F 98 18 114/91 H 100 Room Air 2 06/01/22 08:26 06/01/22 08:31 06/01/22 08:26 06/01/22 08:31 06/01/22 08:26 06/01/22 08:26 05/18/22 14:00 FiO2 35 05/16/22 08:00 Oxygen Flow Rate (L/min) 2 Oxygen Delivery Method Room Air Weight: 99 lb 13.91 oz Body Mass Index (BMI) 18.3 Intake & Output: Intake and Output for Last 24 Hours 05/30/22 05/31/22 06/01/22 23:59 23:59 23:59 Intake Total 1698 / 1698 1777 / 1777 471 / 471 Output Total 775 / 1175 800 / 800 Balance 923 / 523 977 / 977 471 / 471 Medical Nutrition Assessment Dietitian: Malnutrition Criteria Met Start: 05/31/22 15:58 Freq: Status: Active Protocol: Document 05/31/22 15:58 RMA (Rec: 05/31/22 15:58 RMA [id number]) Nutrition Malnutrition Evidence of Malnutrition Exists Yes Malnutrition (severe): Acute Illness/Injury Evidenced By Suboptimal Energy Intake ( Moderate),Weight Loss (Severe) ,Physical Changes (Severe) Intake Problem Inadequate Oral Intake Etiology related to inability to consume sufficient energy/ swallowing difficulty Signs/Symptoms as evidenced by extended NPO/ requiring TF support Status Resolved Problem Clinical Problem Acute Disease or Injury Related Malnutrition Etiology Severe protein-calorie malnutrition in the context of acute disease related to inadequate energy intake and swallowing difficulty Signs/Symptoms as evidenced by ~9-10% wt loss x 18 days, BMI 17.8, severe muscle wasting and fat depletion in the face, clavicle, arms and legs, need for PEG tube feedings and limited oral intake Status Active Problem Unintended Weight Loss Etiology related to unknown etiology Signs/Symptoms as evidenced by 5.1lbs (4.8%) weight loss in 3 days Status Active Problem Recommendation Dietitian Recommendations/Changes Continue enteral nutrition support via PEG tube with Vital AF 1.2 at goal rate 45mL /hr with 70mL water flush Q 4 hours. Continue PO as tolerated with regular diet and texture/ consistency as per THERAPIST'S ASSISTANT; total feed. Will add ensure compact w/ breakfast. Will add fortified pudding BID w/ lunch and dinner. Adjust TF as needed depending on oral intake w/ meals. Trend weights closely given PEG TF and PO improvement. Lab / Micro Data Result Diagrams: 06/01/22 03:52 06/01/22 03:52 Labs: Laboratory Results - last 24 hr 05/31/22 05:29: Diff Path Review Reviewed 05/31/22 13:35: Hgb 8.9 L, Hct 26.8 L 06/01/22 03:52: WBC 9.8, RBC 2.94 L, Hgb 9.1 L, Hct 27.9 L, MCV 94.9, MCH 31.0, MCHC 32.6, RDW Std Deviation 54.4 H, RDW Coeff of Audrey 16.1 H, Plt Count 273, MPV 9.1, Neut % (Auto) Not Reportable, Absolute Neuts (auto) 7.3, Absolute Lymphs (auto) 1.66, Total Counted 100, Neutrophils % (Manual) 75 H, Lymphocytes % (Manual) 17 L, Monocytes % (Manual) 3, Eosinophils % (Manual) 1, Myelocytes % 3 H, Promyelocytes % 1 H, Diff Path Review May , Platelet Estimate ADEQUATE, RBC Morphology NORM C+C, Anisocytosis 1+ 06/01/22 03:52: Sodium 135 L, Potassium 3.8, Chloride 101, Carbon Dioxide 29.0, Anion Gap 5, BUN 24 H, Creatinine 0.32 L, Estim Creat Clear Calc 137.04, Est GFR (MDRD) Af Amer 277, Est GFR (MDRD) Non-Af 229, BUN/Creatinine Ratio 76.2 H, Glucose 106, Calcium 8.4 L, Total Bilirubin 0.40, AST 44 H, ALT 41, Alkaline Phosphatase 160 H, Total Protein 5.2 L, Albumin 1.9 L, Globulin 3.3, Albumin/Globulin Ratio 0.6 L Micro: Microbiology 05/28/22 11:10 Blood Culture (Wb) - Left Hand Blood Culture - Preliminary No growth in 48 hours. 05/28/22 11:05 Blood Culture (Wb) - Anticubital Left Blood Culture - Preliminary No growth in 48 hours. 05/28/22 17:00 Urine, Random Urine Culture - Final Culture exhibits no growth. 05/21/22 14:07 Blood Culture (Wb) - Anticubital Right Blood Culture - Final No growth in 5 days. 05/20/22 08:17 Blood Culture (Wb) - Anticubital Right Blood Culture - Final No growth in 5 days. 05/14/22 05:55 Blood Culture (Wb) - Left Forearm Blood Culture - Final Presumptive C albicans 05/14/22 05:35 Blood Culture (Wb) - Right Forearm Blood Culture - Final No growth in 5 days. 05/12/22 22:50 Blood Culture (Wb) - Chest Blood Culture - Final No growth in 5 days. 05/12/22 22:29 Blood Culture (Wb) - Right Wrist Blood Culture - Final No growth in 5 days. 05/14/22 11:30 Urine Catheter - Isbell Urine Culture - Final Culture exhibits no growth. 05/13/22 09:30 Sputum, Induced/Lukens Gram Stain - Final 05/13/22 09:30 Sputum, Induced/Lukens Respiratory Culture - Final Presumptive C albicans 05/12/22 22:30 Urine, Catheterized Urine Culture - Final Culture exhibits no growth. 05/13/22 00:46 Urine Catheter - Catheter Legionella Antigen - Final 05/13/22 00:46 Urine Catheter - Catheter Streptococcus pneumoniae Antigen (M - Final 05/12/22 22:30 Nasal Secretion SARS-CoV-2 & FLU Antigen (Rapid) - Final Rhythm Strip Rhythm Strip: In and out of sinus rhythm Physical Exam Const no apparent distress Constitutional Narrative: Oriented Resp normal respiratory effort Cardio regular rate GI GI Narrative: PEG tube site dressing dry. Patient has small amount of drainage from the midline incision. Tender near midline hematoma, otherwise abdomen is soft Extremity Extremity Narrative: The patient does not move the left lower extremity on command, patient did move and squeeze the left hand to command. + Minimal movement of right lower extremity to command, follow commands with the right upper extremity. Assessment & Plan Assessment/Plan (1) S/P exploratory laparotomy: (2) Recurrent inguinal hernia of left side with obstruction: (3) Septic shock: (4) Aspiration pneumonia: (5) Acute respiratory failure with hypoxia: (6) Acute hypokalemia: (7) ROSALIE (acute kidney injury): (8) Acute hyponatremia: (9) Acute CVA (cerebrovascular accident): (10) Candidemia: (11) Blood loss anemia: PLAN: Plan Bleeding at the PEG tube site has resolved. Continue the Lovenox and will continue to monitor. Patient does have some drainage at the midline incision due to the previous hematoma-we will continue to monitor. Speech following patient is allowed some p.o.; continue tube feeds via PEG. Acute CVA-continue exams- PT/OT--dispo to rehab when ready for DC possibly tomorrow WBC 9.8, continue IV-Per ID-- abx-fluconazole Hemoglobin stable 9.1 Lovenox/PPI Tahmina Wayne M.D. Pager: [phone] [facility] [address] [place] [address], [facility], [address] [place] [address] Office: [phone]
--- NOTE | 2022-06-01 11:51 | NURSING ---
Per Halle Sosa RN states Dr Jewell is aware unable to insert IV.
[2022-06-01 13:20] LABS: Pathologist Review Reviewed
--- NOTE | 2022-06-01 13:36 | PN_ITS ---
Subjective Subjective Patient seen and examined. She had no active complaints and had an uneventful night. Review of systems is otherwise negative. She has remained hemodynamically stable. Objective Data Objective Data Vital Signs: Vital Signs Temp Pulse Resp BP Pulse Ox O2 Del Method O2 Flow Rate 98.4 F 100 18 114/91 H 100 Room Air 2 06/01/22 08:26 06/01/22 11:25 06/01/22 08:26 06/01/22 08:31 06/01/22 08:26 06/01/22 11:25 05/18/22 14:00 FiO2 35 05/16/22 08:00 Oxygen Flow Rate (L/min) 2 Oxygen Delivery Method Room Air Weight: 99 lb 13.91 oz Body Mass Index (BMI) 18.3 Intake & Output: Intake and Output for Last 24 Hours 05/30/22 05/31/22 06/01/22 23:59 23:59 23:59 Intake Total 1698 / 1698 1777 / 1777 471 / 471 Output Total 775 / 1175 800 / 800 Balance 923 / 523 977 / 977 471 / 471 Medical Nutrition Assessment Dietitian: Malnutrition Criteria Met Start: 05/31/22 15:58 Freq: Status: Active Protocol: Document 05/31/22 15:58 RMA (Rec: 05/31/22 15:58 RMA [id number]) Nutrition Malnutrition Evidence of Malnutrition Exists Yes Malnutrition (severe): Acute Illness/Injury Evidenced By Suboptimal Energy Intake ( Moderate),Weight Loss (Severe) ,Physical Changes (Severe) Intake Problem Inadequate Oral Intake Etiology related to inability to consume sufficient energy/ swallowing difficulty Signs/Symptoms as evidenced by extended NPO/ requiring TF support Status Resolved Problem Clinical Problem Acute Disease or Injury Related Malnutrition Etiology Severe protein-calorie malnutrition in the context of acute disease related to inadequate energy intake and swallowing difficulty Signs/Symptoms as evidenced by ~9-10% wt loss x 18 days, BMI 17.8, severe muscle wasting and fat depletion in the face, clavicle, arms and legs, need for PEG tube feedings and limited oral intake Status Active Problem Unintended Weight Loss Etiology related to unknown etiology Signs/Symptoms as evidenced by 5.1lbs (4.8%) weight loss in 3 days Status Active Problem Recommendation Dietitian Recommendations/Changes Continue enteral nutrition support via PEG tube with Vital AF 1.2 at goal rate 45mL /hr with 70mL water flush Q 4 hours. Continue PO as tolerated with regular diet and texture/ consistency as per FORM STRIPPER; total feed. Will add ensure compact w/ breakfast. Will add fortified pudding BID w/ lunch and dinner. Adjust TF as needed depending on oral intake w/ meals. Trend weights closely given PEG TF and PO improvement. Lab / Micro Data Result Diagrams: 06/01/22 03:52 06/01/22 03:52 Labs: Laboratory Results - last 24 hr 05/31/22 13:35: Hgb 8.9 L, Hct 26.8 L 06/01/22 03:52: WBC 9.8, RBC 2.94 L, Hgb 9.1 L, Hct 27.9 L, MCV 94.9, MCH 31.0, MCHC 32.6, RDW Std Deviation 54.4 H, RDW Coeff of Audrey 16.1 H, Plt Count 273, MPV 9.1, Neut % (Auto) Not Reportable, Absolute Neuts (auto) 7.3, Absolute Lymphs (auto) 1.66, Total Counted 100, Neutrophils % (Manual) 75 H, Lymphocytes % (Manual) 17 L, Monocytes % (Manual) 3, Eosinophils % (Manual) 1, Myelocytes % 3 H, Promyelocytes % 1 H, Diff Path Review Reviewed, Platelet Estimate ADEQUATE, RBC Morphology NORM C+C, Anisocytosis 1+ 06/01/22 03:52: Sodium 135 L, Potassium 3.8, Chloride 101, Carbon Dioxide 29.0, Anion Gap 5, BUN 24 H, Creatinine 0.32 L, Estim Creat Clear Calc 137.04, Est GFR (MDRD) Af Amer 277, Est GFR (MDRD) Non-Af 229, BUN/Creatinine Ratio 76.2 H, Glucose 106, Calcium 8.4 L, Total Bilirubin 0.40, AST 44 H, ALT 41, Alkaline Phosphatase 160 H, Total Protein 5.2 L, Albumin 1.9 L, Globulin 3.3, Albumin/Globulin Ratio 0.6 L Micro: Microbiology 05/28/22 11:10 Blood Culture (Wb) - Left Hand Blood Culture - Preliminary No growth in 48 hours. 05/28/22 11:05 Blood Culture (Wb) - Anticubital Left Blood Culture - Preliminary No growth in 48 hours. 05/28/22 17:00 Urine, Random Urine Culture - Final Culture exhibits no growth. 05/21/22 14:07 Blood Culture (Wb) - Anticubital Right Blood Culture - Final No growth in 5 days. 05/20/22 08:17 Blood Culture (Wb) - Anticubital Right Blood Culture - Final No growth in 5 days. 05/14/22 05:55 Blood Culture (Wb) - Left Forearm Blood Culture - Final Presumptive C albicans 05/14/22 05:35 Blood Culture (Wb) - Right Forearm Blood Culture - Final No growth in 5 days. 05/12/22 22:50 Blood Culture (Wb) - Chest Blood Culture - Final No growth in 5 days. 05/12/22 22:29 Blood Culture (Wb) - Right Wrist Blood Culture - Final No growth in 5 days. 05/14/22 11:30 Urine Catheter - Isbell Urine Culture - Final Culture exhibits no growth. 05/13/22 09:30 Sputum, Induced/Lukens Gram Stain - Final 05/13/22 09:30 Sputum, Induced/Lukens Respiratory Culture - Final Presumptive C albicans 05/12/22 22:30 Urine, Catheterized Urine Culture - Final Culture exhibits no growth. 05/13/22 00:46 Urine Catheter - Catheter Legionella Antigen - Final 05/13/22 00:46 Urine Catheter - Catheter Streptococcus pneumoniae Antigen (M - Final 05/12/22 22:30 Nasal Secretion SARS-CoV-2 & FLU Antigen (Rapid) - Final Rhythm Strip Rhythm Strip: In and out of sinus rhythm Physical Exam Const alert, oriented x3 and no apparent distress Constitutional Narrative: frail, emaciated General Appearance: cooperative, intubated and patient mechanically ventilated HEENT normocephalic, head/scalp atraumatic and moist oral mucous membranes Eyes PERRL, EOMs intact bilaterally and conjunctivae normal Neck no lymphadenopathy, supple and no JVD General: trachea midline Lymph Lymphatic: no lymphadenopathy noted and no lymphedema noted Resp normal respiratory effort, normal air movement, no retractions, no use of accessory muscles and clear to auscultation bilaterally Resp Narrative: mildly diminished breath sounds bibasally, no wheezes or crackles. On room air. Auscultation: Negative for crackles, rales, rhonchi or wheezes Cardio regular rate, regular rhythm, S1 normal heart sound, S2 normal heart sound and no murmurs GI normal to inspection, nondistended, normoactive bowel sounds, soft to palpation, non-tender and non-distended; Negative for hepatosplenomegaly GI Narrative: PEG tube in place; small periumbilical hemaoma at surgical site. Surgical site healing well Extremity normal capillary refill, no clubbing, cyanosis or edema and no calf tenderness Skin no rashes or lesions noted General Skin Exam: no breakdown Neuro CN's II-XII intact bilaterally, no focal motor deficits and no sensory deficits noted Neuro Narrative: unable to move her left upper extremity and left lower extremity. She has some movement of her RUE, but has no noticeable movement of her RLE either. Motor Exam: strength 5/5 throughout and general weakness Psych thought process normal Psych Narrative: lethargic Appearance: appropriate Mood & Affect: flat affect Assessment & Plan Assessment/Plan (1) Blood loss anemia: (2) Candidemia: PLAN: Plan #Acute hypoxic respiratory failure due to aspiration pneumonia and ARDS * extubated and now on room air. * sputum cultures are negative * completed a course of antibiotics * remains on room air * #Acute CVA * patient was noted to have left sided hemiparesis after extubation (not right sided hemiparesis as noted in previous documentation) * CT of the brain showed large areas of abnormal edema in the parietal occipital lobes with smaller regions of abnormal edema in the cerebellum concerning for large acute infarctions versus hepatic encephalopathy. * CTA head and neck showed no evidence of hemodynamic currently significant stenosis * on aspirin and lovenox; lovenox held due to hematoma at periumbilical area and anemia * on high intensity statin * PT OT on board. * MRI of the brain showed large areas of restricted diffusion in the bilateral posterior cerebral hemispheres concerning for large acute infarct and small bilateral cerebellar infarcts as well as small acute lacunar infarct in the bilateral basal ganglia. * 2D echo showed normal left ventricular size with normal left ventricular systolic function and EF of 65% with negative bubble study. #Candidemia: * ?blood culture positive for resumptive rocky albicans. ID consulted. * on IV fluconazole as per ID. * repeat blood cultures ordered and pending * MIKO showed no evidence of vegetations * to be on IV fluconazole for a total of 2 weeks. * #Afib * heart rate improved. * on therapeutic lovenox * on metoprolol 12.5mg bid * #ROSALIE * resolved. #Small bowel obstruction and incarcerated hernia * s/p exploratory laparotomy * general surgery on board. * on tube feeds * management as per general surgery * has PEG tube in place * has hematoma at site of surgery. Per surgery, to continue monitoring * * #Hypokalemia, hypomagnesemia and hypophosphatemia:resolved * #Anemia: resolved. Will monitor. She had some bleeding from PEG tube site which has improved. #Hypotension: resolved. #Nutrition: on tube feed via PEG tube DVT prophylaxis: lovenox therapeutic dose. Disposition:awaiting placement. For likely dc tomorrow per surgery. Charges/Coding Visit Charges Inpatient E&M: 43882 Subs Hosp L2
[2022-06-01] MEDS: Vital AF 1.2 Cal Liquid 1,000 ML 45 ML GT (13:47)
--- NOTE | 2022-06-01 14:26 | NURSING ---
Repositioned to left side.
[2022-06-01] MEDS: Lidocaine 1% /Epi 1:100 (20ml) 20 ML Vial INFILT (15:28)
--- NOTE | 2022-06-01 15:56 | PN_ITS ---
Progress Note Patient's midline incision was coming apart due to the tension from the hematoma?horizontal mattress sutures x4 were placed 3 more superiorly and 1 i nferiorly to help hold the incision together. These will need to be removed in [address] on orders to [facility]
--- NOTE | 2022-06-01 15:58 | DCINST_ITS ---
Discharge Instructions Dressing / Incision Cleanse incision/area with: Soap & Water Additional Dressing/Incision Instructions:: Patient have has firmness to her midline incision due to previous hematoma. This was confirmed on CT. Patient also has [address] horizontal mattress sutures in place with 3-0 nylon which will need to be removed on approximately 06/11/2022 (10 days) unless it is felt that it needs to be left in for another 4 days. PEG site is at 2.5. Currently there is 1 layer of a drain sponge underneath as she had previously been having some bleeding currently there has been no bleeding since 04/2022 AM as patient did have silver nitrate to the area. Follow Up Care Please Follow Up With: Tahmina Wayne MD When: in 3-4 weeks Test Results: Test results from this visit will be discussed in further detail at your follow- up appointment, if applicable. Discharge Plan Admission Admit Date/Time: 05/13/22 00:28 Attending Provider: Lucinda Fu Primary Care Provider: Lance Daley Consulting Providers: René Gutierrez ; Tahmina Wayne ; Romero Hernandez ; Nik Rosa ; Hi Unger ; Bolivar Suarez ; Jj Sahni ; Camilla Goode NP ; Anita Mcgee ; Noel Michele ; Lucinda Fu ; Silvana Dennis Discharge Orders/Prescriptions Prescriptions: No Action calcium 600 mg Capsule 600 mg PO DAILY multivitamin Capsule 1 cap PO DAILY cholecalciferol (vitamin D3) [Vitamin D3] 25 mcg (1,000 unit) Tablet,Chewable 25 mcg PO DAILY Hair, Skin and Nails (biotin) 10,000 mcg Tablet,Chewable 10,000 mcg PO DAILY Referrals / Follow Up: Lance Daley MD [Primary Care Provider] -
[2022-06-01] MEDS: NYSTATIN 500,000 UNIT/5 ML UDC 500000 UNIT PO ×2 (17:32→22:41)
[2022-06-02] VITALS (8 sets, daily range): BP systolic 120–165; BP diastolic 64–91; PULSE 86–114; RESP 16–20; TEMP 36.6–37.3; O2SAT 98–100; BMI 16.5
[2022-06-02 06:46] LABS: Absolute Lymphocyte Count 2.18 X10^3/uL (0.83-4.51); Absolute Neutrophil Count 7.9 X10^3/uL (2.0-7.7); Basophil% 0.8 % (0-1); Eosinophil# 0.23 X10^3/uL; Eosinophils% 1.9 % (0-5); Hematocrit 25.5 % (37-47); Hemoglobin 8.5 g/dL (12.0-15.0); Lymphocyte # 2.18 X10^3/ul (0.83-4.51); Lymphocyte % 18.3 % (19-41); Mean Corp Hgb Conc 33.3 g/dL (32-36); Mean Corpuscular Hgb 31.3 pg (27.0-32.0); Mean Corpuscular Volume 93.8 fL (81-99); Mean Platelet Vol. 9.1 fl (6.2-12.0); Monocyte% 8.4 % (0-10); NRBC Flagged by Analyzer 0 % (0-5); Neutrophil # 7.92 X10^3/uL (2.7-7.7); Neutrophil % 66.4 % (47-70); Platelet Count 265 K/mm3 (150-450); RBC Distribution Width CV 15.5 % (11.6-14.6); RBC Distribution Width SD 51.5 fl (35.1-43.9); Red Blood Count 2.72 M/mm3 (4.2-5.4); White Blood Count 11.9 K/mm3 (4.4-11.0)
[2022-06-02 07:06] LABS: ALB/GLOB Ratio 0.6 RATIO (0.9-2.4); AST(SGOT) 54 U/L (15-37); Alanine Aminotransfer ALT/SGPT 62 U/L (13-56); Albumin, Serum 2.1 g/dL (3.2-5.0); Alkaline Phosphatase 223 U/L (45-117); Anion Gap 7 (5-15); BUN 24 mg/dL (7-18); Calcium,Total 8.5 mg/dL (8.5-10.1); Chloride 101 mmol/L (98-107); Creatinine, Serum 0.32 mg/dL (0.55-1.02); EST Glomerular Filtration Rate 225 mL/min (>60); Est Glom Filt Rate - Afr Amer 272 mL/min (>60); Estimated Creatinine Clearance 123.12 ml/min; Globulin 3.5 g/dL (2.2-4.2); Glucose 104 mg/dL (74-106); Potassium 3.5 mmol/L (3.5-5.1); Protein, Total 5.6 g/dL (6.4-8.2); Sodium Level 138 mmol/L (136-145)
[2022-06-02] MEDS: Enoxaparin 60 MG/0.6 ML Syringe 50 MG SC ×2 (08:16→22:52)
[2022-06-02] MEDS: Pantoprazole Sodium 40 MG Tablet PO (08:17)
[2022-06-02] MEDS: Menthol/Lanolin/Calamine/Znox 113 GM Tube 1 APPLIC TOPICAL ×2 (08:17→22:52)
[2022-06-02] MEDS: Metoprolol Tartrate 25 MG Tablet 12.5 MG PO ×2 (08:17→22:52)
[2022-06-02] MEDS: NYSTATIN 500,000 UNIT/5 ML UDC 500000 UNIT PO ×3 (08:17→22:52)
[2022-06-02] MEDS: Silver Nitrate (BKC) TOPICAL (08:18)
--- NOTE | 2022-06-02 08:28 | PCM.PN.BLA ---
Progress Note Patient evaluated resting comfortably in bed. She denies any abdominal pain. PEG tube re-evaluated. There is a moderate amount of bright red blood on the gauze. Gauze was removed. There was a notable clot in the upper medial area of the PEG tube. Area was cleansed. Three sticks of silver nitrate was used at the clot site. No further active bleeding/oozing was noted following treatment. Telfa was applied. Abdominal incision with decreased hematoma noted. Slight amount of erythema noted surrounding the incision. Superior aspect of the incision with a small amount of hypergranulation tissue. Single silver nitrate was used. No active oozing noted. Telfa was applied over top of the incision. No pressure dressing was applied. We will re-evaluate later today. WBC is elevated today No discharge planned for today. Possibly tomorrow.
--- NOTE | 2022-06-02 11:16 | CASEMGMT ---
Social work Per MD, pt not ready for discharge today. SW sent update to [facility] that pt will need one more day. RICK Jaffe
[2022-06-02] MEDS: Vital AF 1.2 Cal Liquid 1,000 ML 45 ML GT (13:07)
--- NOTE | 2022-06-02 13:15 | CHAPLAIN ---
Type of Pastoral Visit _x_ Initial Visit ___ Follow-up Visit ___ On-call Visit ___ General Patient Visit ___ Spiritual Assessment ___ Family Conference ___ Bereavement ___ Rapid Response ___ Code Blue ___ Other (describe below) Pastoral Care Referral From _x__ Patient ___ Family ___ Nurse ___ Physician ___ Chronometer Repairer ___ Sprinkler Fitter _x__ Other (describe below) Sacrament/Intervention ___ Active listening ___ Anointing ___ Jain ___ Bereavement ___ Communion ___ Daja exploration ___ ___ Life review ___ Prayer ___ Reconciliation ___ Sacrament of Sick _x__ Supportive presence ___ Wedding ___ Other (describe below) Pastoral Comments patient was recently made a referral for spiritual care; a friend of patient had left a message with software configuration specialist's office to also request a spiritual care visit to this patient; met with pt and introduced self and role for support; patient states that she is doing better and has no worries or concerns at this time; meal was delivered at this time with MANAGER ROUTE to assist her but patient refused food; no other needs evident
--- NOTE | 2022-06-02 13:51 | PN_ITS ---
Subjective Subjective Patient seen and examined. She had no complaints and had an uneventful night, review of systems is otherwise negative. She continues some mild bleeding from the site of the surgery she has otherwise remained hemodynamically stable.. Objective Data Objective Data Vital Signs: Vital Signs Temp Pulse Resp BP Pulse Ox O2 Del Method O2 Flow Rate 97.8 F 96 20 H 125/86 H 98 Room Air 2 06/02/22 13:03 06/02/22 13:03 06/02/22 13:03 06/02/22 13:03 06/02/22 13:03 06/02/22 13:11 05/18/22 14:00 FiO2 35 05/16/22 08:00 Oxygen Flow Rate (L/min) 2 Oxygen Delivery Method Room Air Weight: 89 lb 11.65 oz Body Mass Index (BMI) 16.5 Intake & Output: Intake and Output for Last 24 Hours 05/31/22 06/01/22 06/02/22 23:59 23:59 23:59 Intake Total 1777 / 1777 1363 / 1363 Output Total 800 / 800 Balance 977 / 977 1363 / 1363 Medical Nutrition Assessment Dietitian: Malnutrition Criteria Met Start: 05/31/22 15:58 Freq: Status: Active Protocol: Document 05/31/22 15:58 RMA (Rec: 05/31/22 15:58 RMA [id number]) Nutrition Malnutrition Evidence of Malnutrition Exists Yes Malnutrition (severe): Acute Illness/Injury Evidenced By Suboptimal Energy Intake ( Moderate),Weight Loss (Severe) ,Physical Changes (Severe) Intake Problem Inadequate Oral Intake Etiology related to inability to consume sufficient energy/ swallowing difficulty Signs/Symptoms as evidenced by extended NPO/ requiring TF support Status Resolved Problem Clinical Problem Acute Disease or Injury Related Malnutrition Etiology Severe protein-calorie malnutrition in the context of acute disease related to inadequate energy intake and swallowing difficulty Signs/Symptoms as evidenced by ~9-10% wt loss x 18 days, BMI 17.8, severe muscle wasting and fat depletion in the face, clavicle, arms and legs, need for PEG tube feedings and limited oral intake Status Active Problem Unintended Weight Loss Etiology related to unknown etiology Signs/Symptoms as evidenced by 5.1lbs (4.8%) weight loss in 3 days Status Active Problem Recommendation Dietitian Recommendations/Changes Continue enteral nutrition support via PEG tube with Vital AF 1.2 at goal rate 45mL /hr with 70mL water flush Q 4 hours. Continue PO as tolerated with regular diet and texture/ consistency as per FOOD SAFETY OFFICER; total feed. Will add ensure compact w/ breakfast. Will add fortified pudding BID w/ lunch and dinner. Adjust TF as needed depending on oral intake w/ meals. Trend weights closely given PEG TF and PO improvement. Lab / Micro Data Result Diagrams: 06/02/22 06:11 06/02/22 06:11 Labs: Laboratory Results - last 24 hr 06/02/22 06:11: WBC 11.9 H, RBC 2.72 L, Hgb 8.5 L, Hct 25.5 L, MCV 93.8, MCH 31.3, MCHC 33.3, RDW Std Deviation 51.5 H, RDW Coeff of Audrey 15.5 H, Plt Count 265, MPV 9.1, Immature Gran % (Auto) 4.200 H, Neut % (Auto) 66.4, Lymph % (Auto) 18.3 L, [place] % (Auto) 8.4, Eos % (Auto) 1.9, Baso % (Auto) 0.8, Absolute Neuts (auto) 7.9 H, Absolute Lymphs (auto) 2.18, Nucleated RBC % 0 06/02/22 06:11: Sodium 138, Potassium 3.5, Chloride 101, Carbon Dioxide 30.0, Anion Gap 7, BUN 24 H, Creatinine 0.32 L, Estim Creat Clear Calc 123.12, Est GFR (MDRD) Af Amer 272, Est GFR (MDRD) Non-Af 225, BUN/Creatinine Ratio 75.0 H, Glucose 104, Calcium 8.5, Total Bilirubin 0.40, AST 54 H, ALT 62 H, Alkaline Phosphatase 223 H, Total Protein 5.6 L, Albumin 2.1 L, Globulin 3.5, Albumin/Globulin Ratio 0.6 L Micro: Microbiology 05/28/22 11:10 Blood Culture (Wb) - Left Hand Blood Culture - Final No growth in 5 days. 05/28/22 11:05 Blood Culture (Wb) - Anticubital Left Blood Culture - Final No growth in 5 days. 05/28/22 17:00 Urine, Random Urine Culture - Final Culture exhibits no growth. 05/21/22 14:07 Blood Culture (Wb) - Anticubital Right Blood Culture - Final No growth in 5 days. 05/20/22 08:17 Blood Culture (Wb) - Anticubital Right Blood Culture - Final No growth in 5 days. 05/14/22 05:55 Blood Culture (Wb) - Left Forearm Blood Culture - Final Presumptive C albicans 05/14/22 05:35 Blood Culture (Wb) - Right Forearm Blood Culture - Final No growth in 5 days. 05/12/22 22:50 Blood Culture (Wb) - Chest Blood Culture - Final No growth in 5 days. 05/12/22 22:29 Blood Culture (Wb) - Right Wrist Blood Culture - Final No growth in 5 days. 05/14/22 11:30 Urine Catheter - Isbell Urine Culture - Final Culture exhibits no growth. 05/13/22 09:30 Sputum, Induced/Lukens Gram Stain - Final 05/13/22 09:30 Sputum, Induced/Lukens Respiratory Culture - Final Presumptive C albicans 05/12/22 22:30 Urine, Catheterized Urine Culture - Final Culture exhibits no growth. 05/13/22 00:46 Urine Catheter - Catheter Legionella Antigen - Final 05/13/22 00:46 Urine Catheter - Catheter Streptococcus pneumoniae Antigen (M - Final 05/12/22 22:30 Nasal Secretion SARS-CoV-2 & FLU Antigen (Rapid) - Final Rhythm Strip Rhythm Strip: In and out of sinus rhythm Physical Exam Const alert, oriented x3 and no apparent distress Constitutional Narrative: frail, emaciated General Appearance: cooperative and intubated HEENT normocephalic, head/scalp atraumatic and moist oral mucous membranes Eyes PERRL, EOMs intact bilaterally and conjunctivae normal Neck no lymphadenopathy, supple and no JVD General: trachea midline Lymph Lymphatic: no lymphadenopathy noted and no lymphedema noted Resp no use of accessory muscles and clear to auscultation bilaterally Resp Narrative: mildly diminished breath sounds bibasally, no wheezes or crackles. On room air. Auscultation: Negative for crackles, rales, rhonchi or wheezes Cardio regular rate, regular rhythm, S1 normal heart sound, S2 normal heart sound and no murmurs GI normal to inspection, nondistended, normoactive bowel sounds, soft to palpation, non-tender and non-distended; Negative for hepatosplenomegaly GI Narrative: PEG tube in place; small periumbilical hemaoma at surgical site. Surgical site healing well Extremity normal capillary refill, no clubbing, cyanosis or edema and no calf tenderness Skin no rashes or lesions noted General Skin Exam: no breakdown Neuro CN's II-XII intact bilaterally, no focal motor deficits and no sensory deficits noted Neuro Narrative: unable to move her left upper extremity and left lower extremity. She has some movement of her RUE, but has no noticeable movement of her RLE either. Sensorium / Orientation: sedated on vent Motor Exam: strength 5/5 throughout and general weakness Psych thought process normal Psych Narrative: lethargic Appearance: appropriate Mood & Affect: flat affect Assessment & Plan Assessment/Plan (1) Blood loss anemia: (2) Candidemia: PLAN: Plan #Acute hypoxic respiratory failure due to aspiration pneumonia and ARDS * extubated and now on room air. * sputum cultures are negative * completed a course of antibiotics * remains on room air * #Acute CVA * patient was noted to have left sided hemiparesis after extubation (not right sided hemiparesis as noted in previous documentation) * CT of the brain showed large areas of abnormal edema in the parietal occipital lobes with smaller regions of abnormal edema in the cerebellum concerning for large acute infarctions versus hepatic encephalopathy. * CTA head and neck showed no evidence of hemodynamic currently significant stenosis * on aspirin and lovenox; lovenox held due to hematoma at periumbilical area and anemia * on high intensity statin * PT OT on board. * MRI of the brain showed large areas of restricted diffusion in the bilateral posterior cerebral hemispheres concerning for large acute infarct and small bilateral cerebellar infarcts as well as small acute lacunar infarct in the bilateral basal ganglia. * 2D echo showed normal left ventricular size with normal left ventricular systolic function and EF of 65% with negative bubble study. #Candidemia: * ?blood culture positive for resumptive rocky albicans. ID on board * on IV fluconazole as per ID. * repeat blood cultures ordered and pending * MIKO showed no evidence of vegetations * to be on IV fluconazole for a total of 2 weeks. * #Afib * heart rate improved. * on therapeutic lovenox * on metoprolol 12.5mg bid * #ROSALIE * resolved. #Small bowel obstruction and incarcerated hernia * s/p exploratory laparotomy * general surgery on board. * on tube feeds * management as per general surgery * has PEG tube in place * has hematoma at site of surgery. Per surgery, to continue monitoring * * #Hypokalemia, hypomagnesemia and hypophosphatemia:resolved * #Anemia: resolved. Will monitor. She had some bleeding from PEG tube site which has improved. #Hypotension: resolved. #Nutrition: on tube feed via PEG tube DVT prophylaxis: lovenox therapeutic dose. Disposition:awaiting placement. General surgery wants to keep today because of the persistent bleeding from the site. For likely DC tomorrow. Charges/Coding Visit Charges Inpatient E&M: 00646 Subs Hosp L2
--- NOTE | 2022-06-02 15:26 | PCM.PN.BLA ---
Progress Note still small amount of bleeding from right side of PEG and superior incision. Area was prepped with betadine and infiltrated with lidocaine w epi. 3-0 interrupted (at right of PEG exit) and mattress sutures were placed by PEG and at the superior part of incision. Pt tolerated well.
[2022-06-03] VITALS (9 sets, daily range): BP systolic 119–136; BP diastolic 85–102; PULSE 97–109; RESP 16–26; TEMP 36.8–37.3; O2SAT 98–100; BMI 17.2
[2022-06-03 07:32] LABS: Absolute Lymphocyte Count 2.45 X10^3/uL (0.83-4.51); Absolute Neutrophil Count 8.6 X10^3/uL (2.0-7.7); Basophil# 0.07 X10^3/uL; Basophil% 0.6 % (0-1); Eosinophil# 0.25 X10^3/uL; Hematocrit 26.3 % (37-47); Hemoglobin 8.6 g/dL (12.0-15.0); Lymphocyte # 2.45 X10^3/ul (0.83-4.51); Lymphocyte % 19.4 % (19-41); Mean Corp Hgb Conc 32.7 g/dL (32-36); Mean Corpuscular Hgb 31.5 pg (27.0-32.0); Mean Corpuscular Volume 96.3 fL (81-99); Mean Platelet Vol. 9.1 fl (6.2-12.0); Monocyte# 0.85 X10^3/uL; Monocyte% 6.7 % (0-10); NRBC Flagged by Analyzer 0 % (0-5); Neutrophil # 8.58 X10^3/uL (2.7-7.7); Neutrophil % 67.9 % (47-70); Platelet Count 272 K/mm3 (150-450); Red Blood Count 2.73 M/mm3 (4.2-5.4); White Blood Count 12.6 K/mm3 (4.4-11.0)
[2022-06-03 08:08] LABS: ALB/GLOB Ratio 0.6 RATIO (0.9-2.4); AST(SGOT) 44 U/L (15-37); Alanine Aminotransfer ALT/SGPT 64 U/L (13-56); Albumin, Serum 2.2 g/dL (3.2-5.0); Alkaline Phosphatase 223 U/L (45-117); Anion Gap 5 (5-15); BUN 22 mg/dL (7-18); BUN/Creat Ratio 73.3 RATIO (10-20); Calcium,Total 8.7 mg/dL (8.5-10.1); Chloride 101 mmol/L (98-107); EST Glomerular Filtration Rate 242 mL/min (>60); Est Glom Filt Rate - Afr Amer 293 mL/min (>60); Globulin 3.4 g/dL (2.2-4.2); Glucose 114 mg/dL (74-106); Potassium 3.5 mmol/L (3.5-5.1); Protein, Total 5.6 g/dL (6.4-8.2); Sodium Level 137 mmol/L (136-145)
[2022-06-03] MEDS: Metoprolol Tartrate 25 MG Tablet 12.5 MG PO ×2 (09:33→21:21)
[2022-06-03] MEDS: NYSTATIN 500,000 UNIT/5 ML UDC 500000 UNIT PO ×4 (09:34→21:21)
[2022-06-03] MEDS: Pantoprazole Sodium 40 MG Tablet PO (09:34)
[2022-06-03] MEDS: Menthol/Lanolin/Calamine/Znox 113 GM Tube 1 APPLIC TOPICAL ×2 (09:58→21:21)
--- NOTE | 2022-06-03 10:06 | PN.SURG_ITS ---
Subjective Subjective Patient was evaluated resting comfortably in bed. Patient was noted to have bleeding from the PEG tube site at 0200 AM this morning. Patient's Lovenox was administered at 2200 last night in the thigh. Patient denies pain/discomfort at the PEG tube site or the midline incision. There was noted to be some oozing from the superior most aspect of the midline incision as well. Objective Data Objective Data Vital Signs: Vital Signs Temp Pulse Resp BP Pulse Ox O2 Del Method O2 Flow Rate 98.2 F 109 H 24 H 129/87 H 98 Room Air 2 06/03/22 09:29 06/03/22 09:33 06/03/22 09:29 06/03/22 09:33 06/03/22 09:29 06/03/22 09:29 05/18/22 14:00 FiO2 35 05/16/22 08:00 Oxygen Flow Rate (L/min) 2 Oxygen Delivery Method Room Air Weight: 93 lb 4.089 oz Body Mass Index (BMI) 17.2 Intake & Output: Intake and Output for Last 24 Hours 06/01/22 06/02/22 06/03/22 23:59 23:59 23:59 Intake Total 1678 / 1678 625 / 625 Balance 1677 / 1678 625 / 625 Medical Nutrition Assessment Dietitian: Malnutrition Criteria Met Start: 05/31/22 15:58 Freq: Status: Active Protocol: Document 05/31/22 15:58 RMA (Rec: 05/31/22 15:58 RMA [id number]) Nutrition Malnutrition Evidence of Malnutrition Exists Yes Malnutrition (severe): Acute Illness/Injury Evidenced By Suboptimal Energy Intake ( Moderate),Weight Loss (Severe) ,Physical Changes (Severe) Intake Problem Inadequate Oral Intake Etiology related to inability to consume sufficient energy/ swallowing difficulty Signs/Symptoms as evidenced by extended NPO/ requiring TF support Status Resolved Problem Clinical Problem Acute Disease or Injury Related Malnutrition Etiology Severe protein-calorie malnutrition in the context of acute disease related to inadequate energy intake and swallowing difficulty Signs/Symptoms as evidenced by ~9-10% wt loss x 18 days, BMI 17.8, severe muscle wasting and fat depletion in the face, clavicle, arms and legs, need for PEG tube feedings and limited oral intake Status Active Problem Unintended Weight Loss Etiology related to unknown etiology Signs/Symptoms as evidenced by 5.1lbs (4.8%) weight loss in 3 days Status Active Problem Recommendation Dietitian Recommendations/Changes Continue enteral nutrition support via PEG tube with Vital AF 1.2 at goal rate 45mL /hr with 70mL water flush Q 4 hours. Continue PO as tolerated with regular diet and texture/ consistency as per RN CLINICAL TRIALS; total feed. Will add ensure compact w/ breakfast. Will add fortified pudding BID w/ lunch and dinner. Adjust TF as needed depending on oral intake w/ meals. Trend weights closely given PEG TF and PO improvement. Lab / Micro Data Result Diagrams: 06/03/22 06:13 06/03/22 06:13 Labs: Laboratory Results - last 24 hr 06/03/22 06:13: WBC 12.6 H, RBC 2.73 L, Hgb 8.6 L, Hct 26.3 L, MCV 96.3, MCH 31.5, MCHC 32.7, RDW Std Deviation 54.0 H, RDW Coeff of Audrey 16.0 H, Plt Count 272, MPV 9.1, Immature Gran % (Auto) 3.400 H, Neut % (Auto) 67.9, Lymph % (Auto) 19.4, [place] % (Auto) 6.7, Eos % (Auto) 2.0, Baso % (Auto) 0.6, Absolute Neuts (auto) 8.6 H, Absolute Lymphs (auto) 2.45, Nucleated RBC % 0 06/03/22 06:13: Sodium 137, Potassium 3.5, Chloride 101, Carbon Dioxide 31.0, Anion Gap 5, BUN 22 H, Creatinine 0.30 L, Estim Creat Clear Calc 136.50, Est GFR (MDRD) Af Amer 293, Est GFR (MDRD) Non-Af 242, BUN/Creatinine Ratio 73.3 H, Glucose 114 H, Calcium 8.7, Total Bilirubin 0.40, AST 44 H, ALT 64 H, Alkaline Phosphatase 223 H, Total Protein 5.6 L, Albumin 2.2 L, Globulin 3.4, Al bumin/Globulin Ratio 0.6 L Micro: Microbiology 05/28/22 11:10 Blood Culture (Wb) - Left Hand Blood Culture - Final No growth in 5 days. 05/28/22 11:05 Blood Culture (Wb) - Anticubital Left Blood Culture - Final No growth in 5 days. 05/28/22 17:00 Urine, Random Urine Culture - Final Culture exhibits no growth. 05/21/22 14:07 Blood Culture (Wb) - Anticubital Right Blood Culture - Final No growth in 5 days. 05/20/22 08:17 Blood Culture (Wb) - Anticubital Right Blood Culture - Final No growth in 5 days. 05/14/22 05:55 Blood Culture (Wb) - Left Forearm Blood Culture - Final Presumptive C albicans 05/14/22 05:35 Blood Culture (Wb) - Right Forearm Blood Culture - Final No growth in 5 days. 05/12/22 22:50 Blood Culture (Wb) - Chest Blood Culture - Final No growth in 5 days. 05/12/22 22:29 Blood Culture (Wb) - Right Wrist Blood Culture - Final No growth in 5 days. 05/14/22 11:30 Urine Catheter - Isbell Urine Culture - Final Culture exhibits no growth. 05/13/22 09:30 Sputum, Induced/Lukens Gram Stain - Final 05/13/22 09:30 Sputum, Induced/Lukens Respiratory Culture - Final Presumptive C albicans 05/12/22 22:30 Urine, Catheterized Urine Culture - Final Culture exhibits no growth. 05/13/22 00:46 Urine Catheter - Catheter Legionella Antigen - Final 05/13/22 00:46 Urine Catheter - Catheter Streptococcus pneumoniae Antigen (M - Final 05/12/22 22:30 Nasal Secretion SARS-CoV-2 & FLU Antigen (Rapid) - Final Rhythm Strip Rhythm Strip: In and out of sinus rhythm Physical Exam GI normal to inspection, nondistended, normoactive bowel sounds GI Narrative: PEG tube site cleansed with normal saline. Silvercel was applied around the PEG tube and at the superior aspect of the incision. Gauze dressing was applied over top of the incision. Assessment & Plan Assessment/Plan (1) S/P exploratory laparotomy: PLAN: Patient had silvercel placed around 0730 this morning. Around 10:00 AM, patient had saturated the dressing and through her gown. This dressing was removed. Dr. Wayne placed Floseal around the PEG in an attempt to stop the bleeding. Single suture was removed from the PEG tube as it had failed to cease the bleeding at this time. During the floseal placement, it was noted the pat ient has been very active with her upper extremities bilaterally and had attempted at one point to pull at the PEG tube. With this observation, I am thinking the patient may be tugging on the PEG tube causing it to bleed. Patient notes the PEG tube has been itchy, so she has been scratching around the tubing. Abdominal pressure dressing was applied at which she was attempting to remove the tape. An abdominal binder was then placed. Patient's Lovenox was held this morning in order to attempt to stop the oozing around the tube as well. We will re-evaluate patient later today. Charges/Coding Visit Charges Inpatient E&M: 53979 Subs Hosp L1 (No charge; post-op)
[2022-06-03] MEDS: Vital AF 1.2 Cal Liquid 1,000 ML 45 ML GT (11:30)
--- NOTE | 2022-06-03 13:30 | CASEMGMT ---
Social Work SW spoke with physician and pt is not ready for discharge today. [facility] updated via [facility]. Plan: [facility], when medically ready RICK Coffey
--- NOTE | 2022-06-03 14:33 | PN_ITS ---
Subjective Subjective Patient seen and examined. She was lying comfortably in bed and had no complaints. She had an uneventful night and review of systems otherwise negative. She is a bit tachypneic but has otherwise remained hemodynamically stable and is on room air. She has had some increased bleeding from the site of the PEG tube. Objective Data Objective Data Vital Signs: Vital Signs Temp Pulse Resp BP Pulse Ox O2 Del Method O2 Flow Rate 98.4 F 99 26 H 136/85 H 100 Room Air 2 06/03/22 13:54 06/03/22 13:54 06/03/22 13:54 06/03/22 13:54 06/03/22 13:54 06/03/22 13:54 05/18/22 14:00 FiO2 35 05/16/22 08:00 Oxygen Flow Rate (L/min) 2 Oxygen Delivery Method Room Air Weight: 93 lb 4.089 oz Body Mass Index (BMI) 17.2 Intake & Output: Intake and Output for Last 24 Hours 06/01/22 06/02/22 06/03/22 23:59 23:59 23:59 Intake Total 8 1678 1948 Balance 1677 Medical Nutrition Assessment Dietitian: Malnutrition Criteria Met Start: 05/31/22 15:58 Freq: Status: Active Protocol: Document 05/31/22 15:58 RMA (Rec: 05/31/22 15:58 RMA [id number]) Nutrition Malnutrition Evidence of Malnutrition Exists Yes Malnutrition (severe): Acute Illness/Injury Evidenced By Suboptimal Energy Intake ( Moderate),Weight Loss (Severe) ,Physical Changes (Severe) Intake Problem Inadequate Oral Intake Etiology related to inability to consume sufficient energy/ swallowing difficulty Signs/Symptoms as evidenced by extended NPO/ requiring TF support Status Resolved Problem Clinical Problem Acute Disease or Injury Related Malnutrition Etiology Severe protein-calorie malnutrition in the context of acute disease related to inadequate energy intake and swallowing difficulty Signs/Symptoms as evidenced by ~9-10% wt loss x 18 days, BMI 17.8, severe muscle wasting and fat depletion in the face, clavicle, arms and legs, need for PEG tube feedings and limited oral intake Status Active Problem Unintended Weight Loss Etiology related to unknown etiology Signs/Symptoms as evidenced by 5.1lbs (4.8%) weight loss in 3 days Status Active Problem Recommendation Dietitian Recommendations/Changes Continue enteral nutrition support via PEG tube with Vital AF 1.2 at goal rate 45mL /hr with 70mL water flush Q 4 hours. Continue PO as tolerated with regular diet and texture/ consistency as per [employer]AL[employer]; total feed. Will add ensure compact w/ breakfast. Will add fortified pudding BID w/ lunch and dinner. Adjust TF as needed depending on oral intake w/ meals. Trend weights closely given PEG TF and PO improvement. Lab / Micro Data Result Diagrams: 06/03/22 06:13 06/03/22 06:13 Labs: Laboratory Results - last 24 hr 06/03/22 06:13: WBC 12.6 H, RBC 2.73 L, Hgb 8.6 L, Hct 26.3 L, MCV 96.3, MCH 31.5, MCHC 32.7, RDW Std Deviation 54.0 H, RDW Coeff of Audrey 16.0 H, Plt Count 272, MPV 9.1, Immature Gran % (Auto) 3.400 H, Neut % (Auto) 67.9, Lymph % (Auto) 19.4, [place] % (Auto) 6.7, Eos % (Auto) 2.0, Baso % (Auto) 0.6, Absolute Neuts (auto) 8.6 H, Absolute Lymphs (auto) 2.45, Nucleated RBC % 0 06/03/22 06:13: Sodium 137, Potassium 3.5, Chloride 101, Carbon Dioxide 31.0, Anion Gap 5, BUN 22 H, Creatinine 0.30 L, Estim Creat Clear Calc 136.50, Est GFR (MDRD) Af Amer 293, Est GFR (MDRD) Non-Af 242, BUN/Creatinine Ratio 73.3 H, Glucose 114 H, Calcium 8.7, Total Bilirubin 0.40, AST 44 H, ALT 64 H, Alkaline Phosphatase 223 H, Total Protein 5.6 L, Albumin 2.2 L, Globulin 3.4, Albumin/Globulin Ratio 0.6 L Micro: Microbiology 05/28/22 11:10 Blood Culture (Wb) - Left Hand Blood Culture - Final No growth in 5 days. 05/28/22 11:05 Blood Culture (Wb) - Anticubital Left Blood Culture - Final No growth in 5 days. 05/28/22 17:00 Urine, Random Urine Culture - Final Culture exhibits no growth. 05/21/22 14:07 Blood Culture (Wb) - Anticubital Right Blood Culture - Final No growth in 5 days. 05/20/22 08:17 Blood Culture (Wb) - Anticubital Right Blood Culture - Final No growth in 5 days. 05/14/22 05:55 Blood Culture (Wb) - Left Forearm Blood Culture - Final Presumptive C albicans 05/14/22 05:35 Blood Culture (Wb) - Right Forearm Blood Culture - Final No growth in 5 days. 05/12/22 22:50 Blood Culture (Wb) - Chest Blood Culture - Final No growth in 5 days. 05/12/22 22:29 Blood Culture (Wb) - Right Wrist Blood Culture - Final No growth in 5 days. 05/14/22 11:30 Urine Catheter - Isbell Urine Culture - Final Culture exhibits no growth. 05/13/22 09:30 Sputum, Induced/Lukens Gram Stain - Final 05/13/22 09:30 Sputum, Induced/Lukens Respiratory Culture - Final Presumptive C albicans 05/12/22 22:30 Urine, Catheterized Urine Culture - Final Culture exhibits no growth. 05/13/22 00:46 Urine Catheter - Catheter Legionella Antigen - Final 05/13/22 00:46 Urine Catheter - Catheter Streptococcus pneumoniae Antigen (M - Final 05/12/22 22:30 Nasal Secretion SARS-CoV-2 & FLU Antigen (Rapid) - Final Rhythm Strip Rhythm Strip: In and out of sinus rhythm Physical Exam Const alert, oriented x3 and no apparent distress Constitutional Narrative: frail, emaciated General Appearance: cooperative, intubated and patient mechanically ventilated HEENT normocephalic, head/scalp atraumatic and moist oral mucous membranes Eyes PERRL, EOMs intact bilaterally and conjunctivae normal Neck no lymphadenopathy, supple and no JVD General: trachea midline Lymph Lymphatic: no lymphadenopathy noted and no lymphedema noted Resp normal respiratory effort, normal air movement, no retractions, no use of accessory muscles and clear to auscultation bilaterally Resp Narrative: mildly diminished breath sounds bibasally, no wheezes or crackles. On room air. Auscultation: Negative for crackles, rales, rhonchi or wheezes Cardio regular rate, regular rhythm, S1 normal heart sound, S2 normal heart sound and no murmurs GI normal to inspection, nondistended, normoactive bowel sounds, soft to palpation, non-tender and non-distended; Negative for hepatosplenomegaly GI Narrative: PEG tube in place; small periumbilical hemaoma at surgical site. Surgical site healing well. Has some increased bleeding from site of PEG tube insertion Extremity normal capillary refill, no clubbing, cyanosis or edema and no calf tenderness Skin no rashes or lesions noted General Skin Exam: no breakdown Neuro CN's II-XII intact bilaterally, no focal motor deficits and no sensory deficits noted Neuro Narrative: unable to move her left upper extremity and left lower extremity. She has some movement of her RUE, but has no noticeable movement of her RLE either. Sensorium / Orientation: sedated on vent Motor Exam: strength 5/5 throughout and general weakness Psych thought process normal Psych Narrative: lethargic Appearance: appropriate and intubated Mood & Affect: flat affect Assessment & Plan Assessment/Plan (1) Blood loss anemia: (2) Candidemia: PLAN: Plan #Acute hypoxic respiratory failure due to aspiration pneumonia and ARDS * extubated and now on room air. * sputum cultures are negative * completed a course of antibiotics * remains on room air * #Acute CVA * patient was noted to have left sided hemiparesis after extubation (not right sided hemiparesis as noted in previous documentation) * CT of the brain showed large areas of abnormal edema in the parietal occipital lobes with smaller regions of abnormal edema in the cerebellum concerning for large acute infarctions versus hepatic encephalopathy. * CTA head and neck showed no evidence of hemodynamic currently significant stenosis * on aspirin and lovenox; lovenox held due to hematoma at periumbilical area and anemia * on high intensity statin * PT OT on board. * MRI of the brain showed large areas of restricted diffusion in the bilateral posterior cerebral hemispheres concerning for large acute infarct and small bilateral cerebellar infarcts as well as small acute lacunar infarct in the bilateral basal ganglia. * 2D echo showed normal left ventricular size with normal left ventricular systolic function and EF of 65% with negative bubble study. #Candidemia: * ?blood culture positive for resumptive rocky albicans. ID on board * on IV fluconazole as per ID. * repeat blood cultures ordered and pending * MIKO showed no evidence of vegetations * to be on IV fluconazole for a total of 2 weeks- completed a course of fluconazole * #Afib * heart rate improved. * on therapeutic lovenox * on metoprolol 12.5mg bid * hold lovenox o/a of bleeding from site of PEG tube #ROSALIE * resolved. #Small bowel obstruction and incarcerated hernia * s/p exploratory laparotomy * general surgery on board. * on tube feeds * management as per general surgery * has PEG tube in place * had increased bleeding at site of PEG tbue today. Did have some stitches placed by [facility] surgery yesterday. Per general surgery PA, new type of dressing being applied today to help with bleeding. * * #Hypokalemia, hypomagnesemia and hypophosphatemia:resolved * #Anemia: resolved. Will monitor. She had some bleeding from PEG tube site which has improved. #Hypotension: resolved. #Nutrition: on tube feed via PEG tube DVT prophylaxis: lovenox therapeutic dose. Disposition:awaiting placement. General surgery wants bleeding to improve before patient is discharged Charges/Coding Visit Charges Inpatient E&M: 95693 Subs Hosp L2
[2022-06-03] MEDS: traMADol 50 MG Tablet PO (16:51)
[2022-06-04] VITALS (7 sets, daily range): BP systolic 128–147; BP diastolic 77–94; PULSE 85–110; RESP 16; TEMP 36.8–37.1; O2SAT 99–100; BMI 17.2
[2022-06-04 06:54] LABS: Absolute Lymphocyte Count 2.44 X10^3/uL (0.83-4.51); Basophil# 0.07 X10^3/uL; Basophil% 0.6 % (0-1); Eosinophil# 0.24 X10^3/uL; Hematocrit 25.7 % (37-47); Hemoglobin 8.2 g/dL (12.0-15.0); Lymphocyte # 2.44 X10^3/ul (0.83-4.51); Lymphocyte % 20.1 % (19-41); Mean Corp Hgb Conc 31.9 g/dL (32-36); Mean Corpuscular Hgb 31.1 pg (27.0-32.0); Mean Corpuscular Volume 97.3 fL (81-99); Mean Platelet Vol. 9.2 fl (6.2-12.0); Monocyte# 0.84 X10^3/uL; Monocyte% 6.9 % (0-10); NRBC Flagged by Analyzer 0 % (0-5); Neutrophil # 8.03 X10^3/uL (2.7-7.7); Platelet Count 290 K/mm3 (150-450); RBC Distribution Width SD 56.8 fl (35.1-43.9); Red Blood Count 2.64 M/mm3 (4.2-5.4); White Blood Count 12.2 K/mm3 (4.4-11.0)
[2022-06-04 07:21] LABS: ALB/GLOB Ratio 0.6 RATIO (0.9-2.4); AST(SGOT) 45 U/L (15-37); Alanine Aminotransfer ALT/SGPT 62 U/L (13-56); Albumin, Serum 2.2 g/dL (3.2-5.0); Alkaline Phosphatase 215 U/L (45-117); Anion Gap 6 (5-15); BUN 28 mg/dL (7-18); BUN/Creat Ratio 76.9 RATIO (10-20); Calcium,Total 8.7 mg/dL (8.5-10.1); Chloride 101 mmol/L (98-107); Creatinine, Serum 0.36 mg/dL (0.55-1.02); EST Glomerular Filtration Rate 194 mL/min (>60); Est Glom Filt Rate - Afr Amer 235 mL/min (>60); Estimated Creatinine Clearance 113.75 ml/min; Globulin 3.4 g/dL (2.2-4.2); Glucose 119 mg/dL (74-106); Potassium 3.8 mmol/L (3.5-5.1); Protein, Total 5.6 g/dL (6.4-8.2); Sodium Level 138 mmol/L (136-145)
[2022-06-04] MEDS: Vital AF 1.2 Cal Liquid 1,000 ML 45 ML GT (08:13)
[2022-06-04] MEDS: Menthol/Lanolin/Calamine/Znox 113 GM Tube 1 APPLIC TOPICAL ×2 (08:14→22:19)
[2022-06-04] MEDS: NYSTATIN 500,000 UNIT/5 ML UDC 500000 UNIT PO ×4 (08:18→22:20)
[2022-06-04] MEDS: Metoprolol Tartrate 25 MG Tablet 12.5 MG PO ×2 (08:19→22:20)
--- NOTE | 2022-06-04 08:46 | PN.SURG_ITS ---
Subjective Subjective pt taranox was held yesterday and still had some bleeding at PEG. Objective Data Objective Data Vital Signs: Vital Signs Temp Pulse Resp BP Pulse Ox O2 Del Method O2 Flow Rate 98.3 F 101 H 16 128/83 H 99 Room Air 2 06/04/22 07:56 06/04/22 08:19 06/04/22 07:56 06/04/22 07:56 06/04/22 07:56 06/04/22 07:56 05/18/22 14:00 FiO2 35 05/16/22 08:00 Oxygen Flow Rate (L/min) 2 Oxygen Delivery Method Room Air Weight: 93 lb 4.089 oz Body Mass Index (BMI) 17.2 Intake & Output: Intake and Output for Last 24 Hours 06/02/22 06/03/22 06/04/22 23:59 23:59 23:59 Intake Total 1678 / 1678 2355 / 2355 1647.25 / 1647.25 Balance 1678 / 1678 2355 / 2355 1647.25 / 1647.25 Medical Nutrition Assessment Dietitian: Malnutrition Criteria Met Start: 05/31/22 15:58 Freq: Status: Active Protocol: Document 05/31/22 15:58 RMA (Rec: 05/31/22 15:58 RMA [id number]) Nutrition Malnutrition Evidence of Malnutrition Exists Yes Malnutrition (severe): Acute Illness/Injury Evidenced By Suboptimal Energy Intake ( Moderate),Weight Loss (Severe) ,Physical Changes (Severe) Intake Problem Inadequate Oral Intake Etiology related to inability to consume sufficient energy/ swallowing difficulty Signs/Symptoms as evidenced by extended NPO/ requiring TF support Status Resolved Problem Clinical Problem Acute Disease or Injury Related Malnutrition Etiology Severe protein-calorie malnutrition in the context of acute disease related to inadequate energy intake and swallowing difficulty Signs/Symptoms as evidenced by ~9-10% wt loss x 18 days, BMI 17.8, severe muscle wasting and fat depletion in the face, clavicle, arms and legs, need for PEG tube feedings and limited oral intake Status Active Problem Unintended Weight Loss Etiology related to unknown etiology Signs/Symptoms as evidenced by 5.1lbs (4.8%) weight loss in 3 days Status Active Problem Recommendation Dietitian Recommendations/Changes Continue enteral nutrition support via PEG tube with Vital AF 1.2 at goal rate 45mL /hr with 70mL water flush Q 4 hours. Continue PO as tolerated with regular diet and texture/ consistency as per [employer]KE [employer]; total feed. Will add ensure compact w/ breakfast. Will add fortified pudding BID w/ lunch and dinner. Adjust TF as needed depending on oral intake w/ meals. Trend weights closely given PEG TF and PO improvement. Lab / Micro Data Result Diagrams: 06/04/22 06:35 06/04/22 06:35 Labs: Laboratory Results - last 24 hr 06/04/22 06:35: WBC 12.2 H, RBC 2.64 L, Hgb 8.2 L, Hct 25.7 L, MCV 97.3, MCH 31.1, MCHC 31.9 L, RDW Std Deviation 56.8 H, RDW Coeff of Audrey 16.0 H, Plt Count 290, MPV 9.2, Immature Gran % (Auto) 4.400 H, Neut % (Auto) 66.0, Lymph % (Auto) 20.1, [place] % (Auto) 6.9, Eos % (Auto) 2.0, Baso % (Auto) 0.6, Absolute Neuts (auto) 8.0 H, Absolute Lymphs (auto) 2.44, Nucleated RBC % 0 06/04/22 06:35: Sodium 138, Potassium 3.8, Chloride 101, Carbon Dioxide 31.0, Anion Gap 6, BUN 28 H, Creatinine 0.36 L, Estim Creat Clear Calc 113.75, Est GFR (MDRD) Af Amer 235, Est GFR (MDRD) Non-Af 194, BUN/Creatinine Ratio 76.9 H, Glucose 119 H, Calcium 8.7, Total Bilirubin 0.40, AST 45 H, ALT 62 H, Alkaline Phosphatase 215 H, Total Protein 5.6 L, Albumin 2.2 L, Globulin 3.4, Albumin/Globulin Ratio 0.6 L Micro: Microbiology 05/28/22 11:10 Blood Culture (Wb) - Left Hand Blood Culture - Final No growth in 5 days. 05/28/22 11:05 Blood Culture (Wb) - Anticubital Left Blood Culture - Final No growth in 5 days. 05/28/22 17:00 Urine, Random Urine Culture - Final Culture exhibits no growth. 05/21/22 14:07 Blood Culture (Wb) - Anticubital Right Blood Culture - Final No growth in 5 days. 05/20/22 08:17 Blood Culture (Wb) - Anticubital Right Blood Culture - Final No growth in 5 days. 05/14/22 05:55 Blood Culture (Wb) - Left Forearm Blood Culture - Final Presumptive C albicans 05/14/22 05:35 Blood Culture (Wb) - Right Forearm Blood Culture - Final No growth in 5 days. 05/12/22 22:50 Blood Culture (Wb) - Chest Blood Culture - Final No growth in 5 days. 05/12/22 22:29 Blood Culture (Wb) - Right Wrist Blood Culture - Final No growth in 5 days. 05/14/22 11:30 Urine Catheter - Isbell Urine Culture - Final Culture exhibits no growth. 05/13/22 09:30 Sputum, Induced/Lukens Gram Stain - Final 05/13/22 09:30 Sputum, Induced/Lukens Respiratory Culture - Final Presumptive C albicans 05/12/22 22:30 Urine, Catheterized Urine Culture - Final Culture exhibits no growth. 05/13/22 00:46 Urine Catheter - Catheter Legionella Antigen - Final 05/13/22 00:46 Urine Catheter - Catheter Streptococcus pneumoniae Antigen (M - Final 05/12/22 22:30 Nasal Secretion SARS-CoV-2 & FLU Antigen (Rapid) - Final Rhythm Strip Rhythm Strip: In and out of sinus rhythm Physical Exam Const no apparent distress Constitutional Narrative: oriented x 2 Resp normal respiratory effort Cardio regular rate GI soft to palpation and non-tender GI Narrative: PEG site with dried blood on dressing and some clot--no active bleeding. drain sponge replaced under the bumper, midline incision also with some sanguineous drainage on dressing, no left inguinal hernia Assessment & Plan Assessment/Plan (1) S/P exploratory laparotomy: (2) Recurrent inguinal hernia of left side with obstruction: (3) Septic shock: (4) Aspiration pneumonia: (5) Acute respiratory failure with hypoxia: (6) Acute hypokalemia: (7) ROSALIE (acute kidney injury): (8) Acute hyponatremia: (9) Acute CVA (cerebrovascular accident): (10) Candidemia: (11) Blood loss anemia: PLAN: Plan Still no active bleeding at the PEG site. Patient's Lovenox was held yesterday still had some bleeding from that area and did attempt Floseal which was difficult to get in the correct area as there is not a lot of space right by the tube. Currently dry no bleeding?we will check PT PTT as patient's AST and ALT alk phos are elevated unsure etiology. If those are okay okay to try to restart Lovenox. Speech following patient is allowed some p.o.; continue tube feeds via PEG. Acute CVA-continue exams- PT/OT--dispo to rehab when ready?depending on bleeding at the PEG site. WBC 12.2, Per ID-- PO fluconazole stopped 06/01/22 Hemoglobin 8.2 we will continue to monitor Lovenox held yesterday may restart today depending on PT PTT/PPI Tahmina Wayne M.D. Pager: [phone] [facility] [address] [place] [address], [facility], [address] [place] [address] Office: [phone]
[2022-06-04 09:19] LABS: International Normalized Ratio 0.9; Prothrombin Time (Protime)PT. 12.2 SECONDS (11.7-14.9)
[2022-06-04] MEDS: Enoxaparin 60 MG/0.6 ML Syringe 50 MG SC ×2 (10:23→22:20)
--- NOTE | 2022-06-04 10:39 | CASEMGMT ---
Social Work Per physician, pt is not ready for discharge today. SW spoke with [facility] and updated. SW inquired if pt can go to [facility] over the weekend. [facility] states if pt is ready, we will then need to check over the weekend to see if they have beds available and can accept. Updated clinicals sent. SW will continue to follow for d/c planning. Phone call to pt sister Britany and explained situation and that at this time [facility] Will reevaluate pt's acceptance when she is medically ready. Pt sister expressing understanding. Britany states that she has an appointment next week to discuss obtaining guardianship for pt. Plan: [facility], pending medically ready and acceptance RICK Coffey
--- NOTE | 2022-06-04 13:59 | PN_ITS ---
Subjective Subjective Patient seen and examined. She had no complaints today. She had an uneventful night. Review of systems otherwise negative. General surgeon was at her bedside, changing the dressing over the PEG Tube site. She is stil having some minimal bleeding from the site. REview of systems is otherwise negative. Objective Data Objective Data Vital Signs: Vital Signs Temp Pulse Resp BP Pulse Ox O2 Del Method O2 Flow Rate 98.3 F 101 H 16 128/83 H 99 Room Air 2 06/04/22 07:56 06/04/22 08:19 06/04/22 07:56 06/04/22 07:56 06/04/22 07:56 06/04/22 08:00 05/18/22 14:00 FiO2 35 05/16/22 08:00 Oxygen Flow Rate (L/min) 2 Oxygen Delivery Method Room Air Weight: 93 lb 4.089 oz Body Mass Index (BMI) 17.2 Intake & Output: Intake and Output for Last 24 Hours 06/02/22 06/03/22 06/04/22 23:59 23:59 23:59 Intake Total 1678 / 1678 2355 / 2355 1647.25 / 1647.25 Balance 1678 / 1678 2355 / 2355 1647.25 / 1647.25 Medical Nutrition Assessment Dietitian: Malnutrition Criteria Met Start: 05/31/22 15:58 Freq: Status: Active Protocol: Document 05/31/22 15:58 RMA (Rec: 05/31/22 15:58 RMA [id number]) Nutrition Malnutrition Evidence of Malnutrition Exists Yes Malnutrition (severe): Acute Illness/Injury Evidenced By Suboptimal Energy Intake ( Moderate),Weight Loss (Severe) ,Physical Changes (Severe) Intake Problem Inadequate Oral Intake Etiology related to inability to consume sufficient energy/ swallowing difficulty Signs/Symptoms as evidenced by extended NPO/ requiring TF support Status Resolved Problem Clinical Problem Acute Disease or Injury Related Malnutrition Etiology Severe protein-calorie malnutrition in the context of acute disease related to inadequate energy intake and swallowing difficulty Signs/Symptoms as evidenced by ~9-10% wt loss x 18 days, BMI 17.8, severe muscle wasting and fat depletion in the face, clavicle, arms and legs, need for PEG tube feedings and limited oral intake Status Active Problem Unintended Weight Loss Etiology related to unknown etiology Signs/Symptoms as evidenced by 5.1lbs (4.8%) weight loss in 3 days Status Active Problem Recommendation Dietitian Recommendations/Changes Continue enteral nutrition support via PEG tube with Vital AF 1.2 at goal rate 45mL /hr with 70mL water flush Q 4 hours. Continue PO as tolerated with regular diet and texture/ consistency as per [employer] FARM[employer]ER; total feed. Will add ensure compact w/ breakfast. Will add fortified pudding BID w/ lunch and dinner. Adjust TF as needed depending on oral intake w/ meals. Trend weights closely given PEG TF and PO improvement. Lab / Micro Data Result Diagrams: 06/04/22 06:35 06/04/22 06:35 Labs: Laboratory Results - last 24 hr 06/04/22 06:35: WBC 12.2 H, RBC 2.64 L, Hgb 8.2 L, Hct 25.7 L, MCV 97.3, MCH 31.1, MCHC 31.9 L, RDW Std Deviation 56.8 H, RDW Coeff of Audrey 16.0 H, Plt Count 290, MPV 9.2, Immature Gran % (Auto) 4.400 H, Neut % (Auto) 66.0, Lymph % (Auto) 20.1, [place] % (Auto) 6.9, Eos % (Auto) 2.0, Baso % (Auto) 0.6, Absolute Neuts (auto) 8.0 H, Absolute Lymphs (auto) 2.44, Nucleated RBC % 0 06/04/22 06:35: Sodium 138, Potassium 3.8, Chloride 101, Carbon Dioxide 31.0, Anion Gap 6, BUN 28 H, Creatinine 0.36 L, Estim Creat Clear Calc 113.75, Est GFR (MDRD) Af Amer 235, Est GFR (MDRD) Non-Af 194, BUN/Creatinine Ratio 76.9 H, Glucose 119 H, Calcium 8.7, Total Bilirubin 0.40, AST 45 H, ALT 62 H, Alkaline Phosphatase 215 H, Total Protein 5.6 L, Albumin 2.2 L, Globulin 3.4, Albumin/Globulin Ratio 0.6 L 06/04/22 08:53: PT 12.2, INR 0.9 Micro: Microbiology 05/28/22 11:10 Blood Culture (Wb) - Left Hand Blood Culture - Final No growth in 5 days. 05/28/22 11:05 Blood Culture (Wb) - Anticubital Left Blood Culture - Final No growth in 5 days. 05/28/22 17:00 Urine, Random Urine Culture - Final Culture exhibits no growth. 05/21/22 14:07 Blood Culture (Wb) - Anticubital Right Blood Culture - Final No growth in 5 days. 05/20/22 08:17 Blood Culture (Wb) - Anticubital Right Blood Culture - Final No growth in 5 days. 05/14/22 05:55 Blood Culture (Wb) - Left Forearm Blood Culture - Final Presumptive C albicans 05/14/22 05:35 Blood Culture (Wb) - Right Forearm Blood Culture - Final No growth in 5 days. 05/12/22 22:50 Blood Culture (Wb) - Chest Blood Culture - Final No growth in 5 days. 05/12/22 22:29 Blood Culture (Wb) - Right Wrist Blood Culture - Final No growth in 5 days. 05/14/22 11:30 Urine Catheter - Isbell Urine Culture - Final Culture exhibits no growth. 05/13/22 09:30 Sputum, Induced/Lukens Gram Stain - Final 05/13/22 09:30 Sputum, Induced/Lukens Respiratory Culture - Final Presumptive C albicans 05/12/22 22:30 Urine, Catheterized Urine Culture - Final Culture exhibits no growth. 05/13/22 00:46 Urine Catheter - Catheter Legionella Antigen - Final 05/13/22 00:46 Urine Catheter - Catheter Streptococcus pneumoniae Antigen (M - Final 05/12/22 22:30 Nasal Secretion SARS-CoV-2 & FLU Antigen (Rapid) - Final Rhythm Strip Rhythm Strip: In and out of sinus rhythm Physical Exam Const alert, oriented x3 and no apparent distress Constitutional Narrative: frail, emaciated General Appearance: cooperative HEENT normocephalic, head/scalp atraumatic and moist oral mucous membranes Eyes PERRL, EOMs intact bilaterally and conjunctivae normal Neck no lymphadenopathy, supple and no JVD General: trachea midline Lymph Lymphatic: no lymphadenopathy noted and no lymphedema noted Resp normal respiratory effort, normal air movement, no retractions, no use of accessory muscles and clear to auscultation bilaterally Resp Narrative: mildly diminished breath sounds bibasally, no wheezes or crackles. On room air. Auscultation: Negative for crackles, rales, rhonchi or wheezes Cardio regular rate, regular rhythm, S1 normal heart sound, S2 normal heart sound and no murmurs Cardio Narrative: tachycardia has improved GI normal to inspection, nondistended, normoactive bowel sounds, soft to palpation, non-tender and non-distended; Negative for hepatosplenomegaly GI Narrative: PEG tube in place; small periumbilical hemaoma at surgical site. Surgical site healing well. Bleeding from PEG tube site is improving Extremity normal capillary refill, no clubbing, cyanosis or edema and no calf tenderness Skin no rashes or lesions noted General Skin Exam: no breakdown Neuro CN's II-XII intact bilaterally, no focal motor deficits and no sensory deficits noted Neuro Narrative: unable to move her left upper extremity and left lower extremity. She has some movement of her RUE, but has no noticeable movement of her RLE either. Sensorium / Orientation: sedated on vent Motor Exam: strength 5/5 throughout and general weakness Psych thought process normal Psych Narrative: lethargic Appearance: appropriate and intubated Mood & Affect: flat affect Assessment & Plan Assessment/Plan (1) Blood loss anemia: (2) Candidemia: PLAN: Plan #Acute hypoxic respiratory failure due to aspiration pneumonia and ARDS * extubated and now on room air. * sputum cultures are negative * completed a course of antibiotics * remains on room air * #Acute CVA * patient was noted to have left sided hemiparesis after extubation (not right sided hemiparesis as noted in previous documentation) * CT of the brain showed large areas of abnormal edema in the parietal occipital lobes with smaller regions of abnormal edema in the cerebellum concerning for large acute infarctions versus hepatic encephalopathy. * CTA head and neck showed no evidence of hemodynamic currently significant stenosis * on aspirin and lovenox; lovenox held due to hematoma at periumbilical area and anemia. Will resume lovenox today per discussion with general surgeron * on high intensity statin * PT OT on board. * MRI of the brain showed large areas of restricted diffusion in the bilateral posterior cerebral hemispheres concerning for large acute infarct and small bilateral cerebellar infarcts as well as small acute lacunar infarct in the bi lateral basal ganglia. * 2D echo showed normal left ventricular size with normal left ventricular systolic function and EF of 65% with negative bubble study. #Candidemia: * ?blood culture positive for resumptive rocky albicans. ID on board * on IV fluconazole as per ID. * repeat blood cultures ordered and pending * MIKO showed no evidence of vegetations * to be on IV fluconazole for a total of 2 weeks- completed a course of fluconazole * #Afib * heart rate improved. * on therapeutic lovenox * on metoprolol 12.5mg bid * lovenox resumed today * #ROSALIE * resolved. #Small bowel obstruction and incarcerated hernia * s/p exploratory laparotomy * general surgery on board. * on tube feeds * management as per general surgery * has PEG tube in place * had increased bleeding at site of PEG tbue today. Did have some stitches placed by [facility] yesterday. Per general surgery PA, new type of dressing being applied today to help with bleeding. * * #Hypokalemia, hypomagnesemia and hypophosphatemia:resolved * #Anemia: resolved. Will monitor. She had some bleeding from PEG tube site which has improved. #Hypotension: resolved. #Nutrition: on tube feed via PEG tube DVT prophylaxis: lovenox therapeutic dose. Disposition:awaiting placement. General surgery wants bleeding to improve before patient is discharged Charges/Coding Visit Charges Inpatient E&M: 74710 Subs Hosp L2
[2022-06-05 04:13] VITALS: BP 135/82; PULSE 107; RESP 16; TEMP 36.8; O2SAT 100
[2022-06-05] MEDS: Vital AF 1.2 Cal Liquid 1,000 ML 45 ML GT (05:34)
[2022-06-05 06:00] VITALS: BMI 17.2
[2022-06-05 06:42] LABS: Absolute Lymphocyte Count 2.38 X10^3/uL (0.83-4.51); Absolute Neutrophil Count 8.7 X10^3/uL (2.0-7.7); Basophil# 0.08 X10^3/uL; Basophil% 0.6 % (0-1); Eosinophil# 0.18 X10^3/uL; Eosinophils% 1.4 % (0-5); Hematocrit 24.4 % (37-47); Hemoglobin 7.9 g/dL (12.0-15.0); Lymphocyte # 2.38 X10^3/ul (0.83-4.51); Lymphocyte % 18.6 % (19-41); Mean Corp Hgb Conc 32.4 g/dL (32-36); Mean Corpuscular Hgb 31.1 pg (27.0-32.0); Mean Corpuscular Volume 96.1 fL (81-99); Mean Platelet Vol. 9.3 fl (6.2-12.0); Monocyte# 0.95 X10^3/uL; Monocyte% 7.4 % (0-10); NRBC Flagged by Analyzer 0 % (0-5); Neutrophil # 8.74 X10^3/uL (2.7-7.7); Neutrophil % 68.3 % (47-70); Platelet Count 319 K/mm3 (150-450); RBC Distribution Width CV 15.8 % (11.6-14.6); RBC Distribution Width SD 54.2 fl (35.1-43.9); Red Blood Count 2.54 M/mm3 (4.2-5.4); White Blood Count 12.8 K/mm3 (4.4-11.0)
[2022-06-05 07:30] LABS: ALB/GLOB Ratio 0.6 RATIO (0.9-2.4); AST(SGOT) 44 U/L (15-37); Alanine Aminotransfer ALT/SGPT 67 U/L (13-56); Albumin, Serum 2.2 g/dL (3.2-5.0); Alkaline Phosphatase 225 U/L (45-117); Anion Gap 3 (5-15); BUN 26 mg/dL (7-18); BUN/Creat Ratio 98.5 RATIO (10-20); Calcium,Total 8.7 mg/dL (8.5-10.1); Chloride 101 mmol/L (98-107); Creatinine, Serum 0.26 mg/dL (0.55-1.02); EST Glomerular Filtration Rate 281 mL/min (>60); Est Glom Filt Rate - Afr Amer 340 mL/min (>60); Globulin 3.5 g/dL (2.2-4.2); Glucose 131 mg/dL (74-106); Potassium 3.6 mmol/L (3.5-5.1); Protein, Total 5.7 g/dL (6.4-8.2); Sodium Level 134 mmol/L (136-145)
--- NOTE | 2022-06-05 09:09 | PCM.PN.SRG ---
Subjective Subjective no bleeding at PEG yesterday or this AM. Objective Data Objective Data Vital Signs: Vital Signs Temp Pulse Resp BP Pulse Ox O2 Del Method O2 Flow Rate 98.2 F 107 H 16 135/82 H 100 Room Air 2 06/05/22 04:13 06/05/22 04:13 06/05/22 04:13 06/05/22 04:13 06/05/22 04:13 06/05/22 04:13 05/18/22 14:00 FiO2 35 05/16/22 08:00 Oxygen Flow Rate (L/min) 2 Oxygen Delivery Method Room Air Weight: 93 lb 4.089 oz Body Mass Index (BMI) 17.2 Intake & Output: Intake and Output for Last 24 Hours 06/03/22 06/04/22 06/05/22 23:59 23:59 23:59 Intake Total 2355 / 2355 3528.25 / 3528.25 1860.75 / 1860.75 Balance 2355 / 2355 3528.25 / 3528.25 1860.75 / 1860.75 Medical Nutrition Assessment Dietitian: Malnutrition Criteria Met Start: 05/31/22 15:58 Freq: Status: Active Protocol: Document 05/31/22 15:58 RMA (Rec: 05/31/22 15:58 RMA [id number]) Nutrition Malnutrition Evidence of Malnutrition Exists Yes Malnutrition (severe): Acute Illness/Injury Evidenced By Suboptimal Energy Intake ( Moderate),Weight Loss (Severe) ,Physical Changes (Severe) Intake Problem Inadequate Oral Intake Etiology related to inability to consume sufficient energy/ swallowing difficulty Signs/Symptoms as evidenced by extended NPO/ requiring TF support Status Resolved Problem Clinical Problem Acute Disease or Injury Related Malnutrition Etiology Severe protein-calorie malnutrition in the context of acute disease related to inadequate energy intake and swallowing difficulty Signs/Symptoms as evidenced by ~9-10% wt loss x 18 days, BMI 17.8, severe muscle wasting and fat depletion in the face, clavicle, arms and legs, need for PEG tube feedings and limited oral intake Status Active Problem Unintended Weight Loss Etiology related to unknown etiology Signs/Symptoms as evidenced by 5.1lbs (4.8%) weight loss in 3 days Status Active Problem Recommendation Dietitian Recommendations/Changes Continue enteral nutrition support via PEG tube with Vital AF 1.2 at goal rate 45mL /hr with 70mL water flush Q 4 hours. Continue PO as tolerated with regular diet and texture/ consistency as per TARE WORKER; total feed. Will add ensure compact w/ breakfast. Will add fortified pudding BID w/ lunch and dinner. Adjust TF as needed depending on oral intake w/ meals. Trend weights closely given PEG TF and PO improvement. Lab / Micro Data Result Diagrams: 06/05/22 06:08 06/05/22 06:08 Labs: Laboratory Results - last 24 hr 06/04/22 08:53: PT 12.2, INR 0.9 06/05/22 06:08: WBC 12.8 H, RBC 2.54 L, Hgb 7.9 L, Hct 24.4 L, MCV 96.1, MCH 31.1, MCHC 32.4, RDW Std Deviation 54.2 H, RDW Coeff of Audrey 15.8 H, Plt Count 319, MPV 9.3, Immature Gran % (Auto) 3.700 H, Neut % (Auto) 68.3, Lymph % (Auto) 18.6 L, [place] % (Auto) 7.4, Eos % (Auto) 1.4, Baso % (Auto) 0.6, Absolute Neuts (auto) 8.7 H, Absolute Lymphs (auto) 2.38, Nucleated RBC % 0 06/05/22 06:08: Sodium 134 L, Potassium 3.6, Chloride 101, Carbon Dioxide 30.0, Anion Gap 3 L, BUN 26 H, Creatinine 0.26 L, Estim Creat Clear Calc 157.50, Est GFR (MDRD) Af Amer 340, Est GFR (MDRD) Non-Af 281, BUN/Creatinine Ratio 98.5 H, Glucose 131 H, Calcium 8.7, Total Bilirubin 0.40, AST 44 H, ALT 67 H, Alkaline Phosphatase 225 H, Total Protein 5.7 L, Albumin 2.2 L, Globulin 3.5, Albumin/Globulin Ratio 0.6 L Micro: Microbiology 05/28/22 11:10 Blood Culture (Wb) - Left Hand Blood Culture - Final No growth in 5 days. 05/28/22 11:05 Blood Culture (Wb) - Anticubital Left Blood Culture - Final No growth in 5 days. 05/28/22 17:00 Urine, Random Urine Culture - Final Culture exhibits no growth. 05/21/22 14:07 Blood Culture (Wb) - Anticubital Right Blood Culture - Final No growth in 5 days. 05/20/22 08:17 Blood Culture (Wb) - Anticubital Right Blood Culture - Final No growth in 5 days. 05/14/22 05:55 Blood Culture (Wb) - Left Forearm Blood Culture - Final Presumptive C albicans 05/14/22 05:35 Blood Culture (Wb) - Right Forearm Blood Culture - Final No growth in 5 days. 05/12/22 22:50 Blood Culture (Wb) - Chest Blood Culture - Final No growth in 5 days. 05/12/22 22:29 Blood Culture (Wb) - Right Wrist Blood Culture - Final No growth in 5 days. 05/14/22 11:30 Urine Catheter - Isbell Urine Culture - Final Culture exhibits no growth. 05/13/22 09:30 Sputum, Induced/Lukens Gram Stain - Final 05/13/22 09:30 Sputum, Induced/Lukens Respiratory Culture - Final Presumptive C albicans 05/12/22 22:30 Urine, Catheterized Urine Culture - Final Culture exhibits no growth. 05/13/22 00:46 Urine Catheter - Catheter Legionella Antigen - Final 05/13/22 00:46 Urine Catheter - Catheter Streptococcus pneumoniae Antigen (M - Final 05/12/22 22:30 Nasal Secretion SARS-CoV-2 & FLU Antigen (Rapid) - Final Rhythm Strip Rhythm Strip: In and out of sinus rhythm Physical Exam Const no apparent distress Constitutional Narrative: oriented x 2 Resp normal respiratory effort Cardio regular rate GI soft to palpation and non-tender GI Narrative: PEG site with no bleeding- dressing changed- some clot gets removed with the dressing- still no bleeding seen--drain sponge placed Assessment & Plan Assessment/Plan (1) S/P exploratory laparotomy: (2) Recurrent inguinal hernia of left side with obstruction: (3) Septic shock: (4) Aspiration pneumonia: (5) Acute respiratory failure with hypoxia: (6) Acute hypokalemia: (7) ROSALIE (acute kidney injury): (8) Acute hyponatremia: (9) Acute CVA (cerebrovascular accident): (10) Candidemia: (11) Blood loss anemia: PLAN: Plan Still no active bleeding at the PEG site. lovenox given yesterday Speech following patient is allowed some p.o.; continue tube feeds via PEG. Acute CVA-continue exams- PT/OT--dispo to rehab when ready?no current bleeding from PEG site. WBC 12.8, Per ID-- PO fluconazole stopped 06/01/22 Hemoglobin 7.9 we will continue to monitor Lovenox/PPI Tahmina Wyane M.D. Pager: [phone] [facility] [address] [place] [address], [facility], [address] [place] [id number] Office: [phone]
[2022-06-05] MEDS: NYSTATIN 500,000 UNIT/5 ML UDC 500000 UNIT PO ×3 (11:21→22:11)
[2022-06-05 11:22] VITALS: PULSE 100
[2022-06-05] MEDS: Pantoprazole Sodium 40 MG Tablet PO (11:22)
[2022-06-05] MEDS: Menthol/Lanolin/Calamine/Znox 113 GM Tube 1 APPLIC TOPICAL ×2 (11:22→22:03)
[2022-06-05] MEDS: Metoprolol Tartrate 25 MG Tablet 12.5 MG PO ×2 (11:22→22:04)
[2022-06-05] MEDS: Enoxaparin 60 MG/0.6 ML Syringe 50 MG SC ×2 (11:22→22:03)
[2022-06-05 11:33] VITALS: BP 142/96; PULSE 111; RESP 18; TEMP 36.6; O2SAT 100
--- NOTE | 2022-06-05 12:48 | PN_ITS ---
Subjective Subjective Patient seen and examined. She had no active complaints and had an uneventful night. Bleeding from PEG tube site has improved. Review of systems is otherwise negative. She has remained hemodynamically stable. Objective Data Objective Data Vital Signs: Vital Signs Temp Pulse Resp BP Pulse Ox O2 Del Method O2 Flow Rate 98 F 111 H 18 142/96 H 100 Room Air 2 06/05/22 11:33 06/05/22 11:33 06/05/22 11:33 06/05/22 11:33 06/05/22 11:33 06/05/22 11:33 05/18/22 14:00 FiO2 35 05/16/22 08:00 Oxygen Flow Rate (L/min) 2 Oxygen Delivery Method Room Air Weight: 93 lb 4.089 oz Body Mass Index (BMI) 17.2 Intake & Output: Intake and Output for Last 24 Hours 06/03/22 06/04/22 06/05/22 23:59 23:59 23:59 Intake Total 2355 / 2355 3528.25 / 3528.25 1860.75 / 1860.75 Balance 2355 / 2355 3528.25 / 3528.25 1860.75 / 1860.75 Medical Nutrition Assessment Dietitian: Malnutrition Criteria Met Start: 05/31/22 15:58 Freq: Status: Active Protocol: Document 06/05/22 10:50 AG (Rec: 06/05/22 10:50 AG [id number]) Nutrition Malnutrition Evidence of Malnutrition Exists Yes Malnutrition (severe): Acute Illness/Injury Evidenced By Suboptimal Energy Intake ( Severe),Weight Loss (Severe), Physical Changes (Severe) Intake Problem Inadequate Oral Intake Etiology related to mental status, swallowing difficulty Signs/Symptoms as evidenced by unintentional wt loss, estimated PO intake meeting <50% of estimated energy needs Status Active Problem Clinical Problem Acute Disease or Injury Related Malnutrition Etiology Severe protein-calorie malnutrition in the context of acute disease related to inadequate energy intake and swallowing difficulty Signs/Symptoms as evidenced by 6kg/12% wt loss x 3 weeks; severe muscle wasting and loss evident in orbital, clavicle, acromion, and temporal areas per physical exam; estimated PO intake meeting <50% of estimated energy needs > 5 days; BMI 17.2 Status Active Problem Unintended Weight Loss Etiology related to inadequate energy intake Signs/Symptoms as evidenced by 6kg/12% wt loss x 3 weeks Status Active Problem Recommendation Dietitian Recommendations/Changes 1) Vital AF 1.2 currently out of stock and 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 Appropriate to transition to Jevity 1.5 at this time. When current infusing bottle is complete, will adjust EN to Jevity 1.5 via PEG at goal rate of 40mL/ hour w/ 125mL H2O flush every 4 hours to provide 1440 calories, 61 g protein, and 1480mL total fluid/day. 2) Continue PO diet per GREY PERCHER- Regular- Pureed/Thin liquids; total feed. Ensure Compact w/ breakfast; Fortified Pudding w / lunch and dinner for additional protein/calories if consumed. 3) Continue daily wts. Lab / Micro Data Result Diagrams: 06/05/22 06:08 06/05/22 06:08 Labs: Laboratory Results - last 24 hr 06/05/22 06:08: WBC 12.8 H, RBC 2.54 L, Hgb 7.9 L, Hct 24.4 L, MCV 96.1, MCH 31.1, MCHC 32.4, RDW Std Deviation 54.2 H, RDW Coeff of Audrey 15.8 H, Plt Count 319, MPV 9.3, Immature Gran % (Auto) 3.700 H, Neut % (Auto) 68.3, Lymph % (Auto) 18.6 L, Cavalier % (Auto) 7.4, Eos % (Auto) 1.4, Baso % (Auto) 0.6, Absolute Neuts (auto) 8.7 H, Absolute Lymphs (auto) 2.38, Nucleated RBC % 0 06/05/22 06:08: Sodium 134 L, Potassium 3.6, Chloride 101, Carbon Dioxide 30.0, Anion Gap 3 L, BUN 26 H, Creatinine 0.26 L, Estim Creat Clear Calc 157.50, Est GFR (MDRD) Af Amer 340, Est GFR (MDRD) Non-Af 281, BUN/Creatinine Ratio 98.5 H, Glucose 131 H, Calcium 8.7, Total Bilirubin 0.40, AST 44 H, ALT 67 H, Alkaline Phosphatase 225 H, Total Protein 5.7 L, Albumin 2.2 L, Globulin 3.5, Albumin/Globulin Ratio 0.6 L Micro: Microbiology 05/28/22 11:10 Blood Culture (Wb) - Left Hand Blood Culture - Final No growth in 5 days. 05/28/22 11:05 Blood Culture (Wb) - Anticubital Left Blood Culture - Final No growth in 5 days. 05/28/22 17:00 Urine, Random Urine Culture - Final Culture exhibits no growth. 05/21/22 14:07 Blood Culture (Wb) - Anticubital Right Blood Culture - Final No growth in 5 days. 05/20/22 08:17 Blood Culture (Wb) - Anticubital Right Blood Culture - Final No growth in 5 days. 05/14/22 05:55 Blood Culture (Wb) - Left Forearm Blood Culture - Final Presumptive C albicans 05/14/22 05:35 Blood Culture (Wb) - Right Forearm Blood Culture - Final No growth in 5 days. 05/12/22 22:50 Blood Culture (Wb) - Chest Blood Culture - Final No growth in 5 days. 05/12/22 22:29 Blood Culture (Wb) - Right Wrist Blood Culture - Final No growth in 5 days. 05/14/22 11:30 Urine Catheter - Isbell Urine Culture - Final Culture exhibits no growth. 05/13/22 09:30 Sputum, Induced/Lukens Gram Stain - Final 05/13/22 09:30 Sputum, Induced/Lukens Respiratory Culture - Final Presumptive C albicans 05/12/22 22:30 Urine, Catheterized Urine Culture - Final Culture exhibits no growth. 05/13/22 00:46 Urine Catheter - Catheter Legionella Antigen - Final 05/13/22 00:46 Urine Catheter - Catheter Streptococcus pneumoniae Antigen (M - Final 05/12/22 22:30 Nasal Secretion SARS-CoV-2 & FLU Antigen (Rapid) - Final Rhythm Strip Rhythm Strip: In and out of sinus rhythm Physical Exam Const alert, oriented x3 and no apparent distress Constitutional Narrative: frail, emaciated General Appearance: cooperative, intubated and patient mechanically ventilated HEENT normocephalic, head/scalp atraumatic and moist oral mucous membranes Eyes PERRL, EOMs intact bilaterally and conjunctivae normal Eyes Narrative: concern about impaired vision today as physical therapy noted patient couldnt track very well. Neck no lymphadenopathy, supple and no JVD General: trachea midline Lymph Lymphatic: no lymphadenopathy noted and no lymphedema noted Resp Resp Narrative: mildly diminished breath sounds bibasally, no wheezes or crackles. On room air. Auscultation: Negative for crackles, rales, rhonchi or wheezes Cardio regular rhythm, S1 normal heart sound, S2 normal heart sound and no murmurs Cardio Narrative: tachycardia GI normal to inspection, nondistended, normoactive bowel sounds, soft to palpation, non-tender and non-distended; Negative for hepatosplenomegaly GI Narrative: PEG tube in place; small periumbilical hemaoma at surgical site. Surgical site healing well. Bleeding from PEG tube site is improving Extremity normal capillary refill, no clubbing, cyanosis or edema and no calf tenderness Skin no rashes or lesions noted General Skin Exam: no breakdown Neuro CN's II-XII intact bilaterally, no focal motor deficits and no sensory deficits noted Neuro Narrative: unable to move her left upper extremity and left lower extremity. She has some movement of her RUE, but has no noticeable movement of her RLE either. Sensorium / Orientation: sedated on vent Motor Exam: strength 5/5 throughout and general weakness Psych thought process normal Psych Narrative: lethargic Appearance: appropriate Mood & Affect: flat affect Assessment & Plan Assessment/Plan (1) Blood loss anemia: (2) Candidemia: PLAN: Plan #Acute hypoxic respiratory failure due to aspiration pneumonia and ARDS * extubated and now on room air. * sputum cultures are negative * completed a course of antibiotics * remains on room air * #Acute CVA * patient was noted to have left sided hemiparesis after extubation (not right sided hemiparesis as noted in previous documentation) * CT of the brain showed large areas of abnormal edema in the parietal occipital lobes with smaller regions of abnormal edema in the cerebellum concerning for large acute infarctions versus hepatic encephalopathy. * CTA head and neck showed no evidence of hemodynamic currently significant stenosis * on aspirin and lovenox; * on high intensity statin * PT OT on board. * MRI of the brain showed large areas of restricted diffusion in the bilateral posterior cerebral hemispheres concerning for large acute infarct and small bilateral cerebellar infarcts as well as small acute lacunar infarct in the bilateral basal ganglia. * 2D echo showed normal left ventricular size with normal left ventricular systolic function and EF of 65% with negative bubble study. #Candidemia: * ?blood culture positive for resumptive rocky albicans. ID on board * on IV fluconazole as per ID. * repeat blood cultures ordered and pending * MIKO showed no evidence of vegetations * completed a course of IV fluconazole. * wbc mildly elevated. Will check urinalysis for evidence of UTI * #Afib * heart rate in the 110s today. * on therapeutic lovenox * on metoprolol 12.5mg bid * on lovenox * #ROSALIE * resolved. #Small bowel obstruction and incarcerated hernia * s/p exploratory laparotomy * general surgery on board. * on tube feeds * management as per general surgery * has PEG tube in place * had increased bleeding at site of PEG tbue today. Did have some stitches placed by [facility] surgery yesterday. Per general surgery PA, new type of dressing being applied today to help with bleeding. * * #Hypokalemia, hypomagnesemia and hypophosphatemia:resolved * #Anemia: resolved. Will monitor. She had some bleeding from PEG tube site which has improved. #Hypotension: resolved. #Nutrition: on tube feed via PEG tube DVT prophylaxis: lovenox therapeutic dose. Disposition:[facility] said they dont think patient is ready for discharge, and to re-evaluate on Tuesday Charges/Coding Visit Charges Inpatient E&M: 26595 Subs Hosp L2
--- NOTE | 2022-06-05 13:30 | CASEMGMT ---
Social Work Note SASHA was contacted by Brit[facility]/OT as well as med list. SASHA reviewed needs with patient's RN Bernadette who reports she already spoke with Britany and PT is currently in with patient. SASHA sent PT/ OT and med list to [facility] via [facility]. SASHA contacted Britany to verify she received documents via [employer], Britany confirmed she has documents. Britany explained she will review the referral with their Doc and requested SASHA work on discharge information. SASHA contacted Nickie to discuss discharge needs for [facility]. Britany contacted SASHA and explained based on the notes provided, their MD does not feel the patient is medically ready to come to their facility. Britany reports they can review updates on Tuesday for admission. SASHA updated MD, RN and battery technician. Plan: [facility] to review updates on Tuesday ELIA Canales
[2022-06-05 17:03] VITALS: BP 138/86; PULSE 96; RESP 18; TEMP 36.4; O2SAT 96
[2022-06-05 22:04] VITALS: BP 122/81; PULSE 93
[2022-06-05 23:00] VITALS: BP 122/81; PULSE 93; RESP 16; TEMP 36.8; O2SAT 98
[2022-06-06] MEDS: traMADol 50 MG Tablet PO (02:02)
--- NOTE | 2022-06-06 02:08 | NURSING ---
pt restless, pulling clothes off and her abd binder. pt turned and repositioned, c/o sever pain to the left hip area, pt has an abrasion, when it was cleaned a hard round area was noted to the abrasion site under the skin. duoderm applied to hip and prn ultram given.
[2022-06-06 05:00] VITALS: BP 128/82; PULSE 91; RESP 16; TEMP 36.6; O2SAT 95
[2022-06-06 05:46] LABS: Absolute Lymphocyte Count 2.68 X10^3/uL (0.83-4.51); Absolute Neutrophil Count 7.9 X10^3/uL (2.0-7.7); Basophil# 0.07 X10^3/uL; Basophil% 0.6 % (0-1); Eosinophils% 1.7 % (0-5); Hemoglobin 8.8 g/dL (12.0-15.0); Lymphocyte # 2.68 X10^3/ul (0.83-4.51); Lymphocyte % 22.1 % (19-41); Mean Corp Hgb Conc 32.6 g/dL (32-36); Mean Corpuscular Hgb 31.5 pg (27.0-32.0); Mean Corpuscular Volume 96.8 fL (81-99); Mean Platelet Vol. 8.8 fl (6.2-12.0); Monocyte# 0.99 X10^3/uL; Monocyte% 8.2 % (0-10); NRBC Flagged by Analyzer 0 % (0-5); Neutrophil # 7.86 X10^3/uL (2.7-7.7); Neutrophil % 64.8 % (47-70); Platelet Count 338 K/mm3 (150-450); RBC Distribution Width CV 15.5 % (11.6-14.6); RBC Distribution Width SD 53.6 fl (35.1-43.9); Red Blood Count 2.79 M/mm3 (4.2-5.4); White Blood Count 12.1 K/mm3 (4.4-11.0)
[2022-06-06 06:00] VITALS: BMI 16.5
[2022-06-06] MEDS: Morphine 2 MG/ML Syringe 1 MG IV ×2 (06:23→10:04)
[2022-06-06] MEDS: 0.9% Saline Lock 10 ML Syringe IV (06:30)
[2022-06-06] MEDS: Jevity 1.5 1,000 ML 40 ML GT (06:30)
[2022-06-06 08:41] VITALS: BP 130/72; PULSE 118; RESP 16; TEMP 36.5; O2SAT 100
[2022-06-06 08:43] VITALS: PULSE 118
[2022-06-06] MEDS: Metoprolol Tartrate 25 MG Tablet 12.5 MG PO (08:43)
[2022-06-06] MEDS: Enoxaparin 60 MG/0.6 ML Syringe 50 MG SC (08:44)
[2022-06-06] MEDS: Menthol/Lanolin/Calamine/Znox 113 GM Tube 1 APPLIC TOPICAL (08:44)
[2022-06-06] MEDS: Pantoprazole Sodium 40 MG Tablet PO (08:45)
[2022-06-06] MEDS: NYSTATIN 500,000 UNIT/5 ML UDC 500000 UNIT PO ×2 (08:45→14:08)
[2022-06-06 09:00] VITALS: PULSE 118; O2SAT 100
--- NOTE | 2022-06-06 10:52 | PN_ITS ---
Subjective Subjective Patient seen and examined. She has no active complaints today. She had an uneventful night. She has remained hemodynamically stable though her heart rate is a little bit elevated at 118 today at time of review. Objective Data Objective Data Vital Signs: Vital Signs Temp Pulse Resp BP Pulse Ox O2 Del Method O2 Flow Rate 97.7 F L 118 H 16 130/72 H 100 Room Air 2 06/06/22 08:41 06/06/22 09:00 06/06/22 08:41 06/06/22 08:41 06/06/22 09:00 06/06/22 09:00 05/18/22 14:00 FiO2 35 05/16/22 08:00 Oxygen Flow Rate (L/min) 2 Oxygen Delivery Method Room Air Weight: 89 lb 11.65 oz Body Mass Index (BMI) 16.5 Intake & Output: Intake and Output for Last 24 Hours 06/04/22 06/05/22 06/06/22 23:59 23:59 23:59 Intake Total 3528.25 / 3528.25 2200.75 / 2250.75 1050 / 1050 Balance 3528.25 / 3528.25 2200.75 / 2250.75 1050 / 1050 Medical Nutrition Assessment Dietitian: Malnutrition Criteria Met Start: 05/31/22 15:58 Freq: Status: Active Protocol: Document 06/05/22 10:50 AG (Rec: 06/05/22 10:50 AG [id number]) Nutrition Malnutrition Evidence of Malnutrition Exists Yes Malnutrition (severe): Acute Illness/Injury Evidenced By Suboptimal Energy Intake ( Severe),Weight Loss (Severe), Physical Changes (Severe) Intake Problem Inadequate Oral Intake Etiology related to mental status, swallowing difficulty Signs/Symptoms as evidenced by unintentional wt loss, estimated PO intake meeting <50% of estimated energy needs Status Active Problem Clinical Problem Acute Disease or Injury Related Malnutrition Etiology Severe protein-calorie malnutrition in the context of acute disease related to inadequate energy intake and swallowing difficulty Signs/Symptoms as evidenced by 6kg/12% wt loss x 3 weeks; severe muscle wasting and loss evident in orbital, clavicle, acromion, and temporal areas per physical exam; estimated PO intake meeting <50% of estimated energy needs > 5 days; BMI 17.2 Status Active Problem Unintended Weight Loss Etiology related to inadequate energy intake Signs/Symptoms as evidenced by 6kg/12% wt loss x 3 weeks Status Active Problem Recommendation Dietitian Recommendations/Changes 1) Vital AF 1.2 currently out of stock and has user experience lead back order. Appropriate to transition to Jevity 1.5 at this time. When current infusing bottle is complete, will adjust EN to Jevity 1.5 via PEG at goal rate of 40mL/ hour w/ 125mL H2O flush every 4 hours to provide 1440 calories, 61 g protein, and 1480mL total fluid/day. 2) Continue PO diet per COMMUNICATION AND OUTREACH MANAGER- Regular- Pureed/Thin liquids; total feed. Ensure Compact w/ breakfast; Fortified Pudding w / lunch and dinner for additional protein/calories if consumed. 3) Continue daily wts. Lab / Micro Data Result Diagrams: 06/06/22 05:35 06/05/22 06:08 Labs: Laboratory Results - last 24 hr 06/06/22 05:35: WBC 12.1 H, RBC 2.79 L, Hgb 8.8 L, Hct 27.0 L, MCV 96.8, MCH 31.5, MCHC 32.6, RDW Std Deviation 53.6 H, RDW Coeff of Audrey 15.5 H, Plt Count 338, MPV 8.8, Immature Gran % (Auto) 2.600 H, Neut % (Auto) 64.8, Lymph % (Auto) 22.1, Sanborn % (Auto) 8.2, Eos % (Auto) 1.7, Baso % (Auto) 0.6, Absolute Neuts (auto) 7.9 H, Absolute Lymphs (auto) 2.68, Nucleated RBC % 0 Micro: Microbiology 05/28/22 11:10 Blood Culture (Wb) - Left Hand Blood Culture - Final No growth in 5 days. 05/28/22 11:05 Blood Culture (Wb) - Anticubital Left Blood Culture - Final No growth in 5 days. 05/28/22 17:00 Urine, Random Urine Culture - Final Culture exhibits no growth. 05/21/22 14:07 Blood Culture (Wb) - Anticubital Right Blood Culture - Final No growth in 5 days. 05/20/22 08:17 Blood Culture (Wb) - Anticubital Right Blood Culture - Final No growth in 5 days. 05/14/22 05:55 Blood Culture (Wb) - Left Forearm Blood Culture - Final Presumptive C albicans 05/14/22 05:35 Blood Culture (Wb) - Right Forearm Blood Culture - Final No growth in 5 days. 05/12/22 22:50 Blood Culture (Wb) - Chest Blood Culture - Final No growth in 5 days. 05/12/22 22:29 Blood Culture (Wb) - Right Wrist Blood Culture - Final No growth in 5 days. 05/14/22 11:30 Urine Catheter - Isbell Urine Culture - Final Culture exhibits no growth. 05/13/22 09:30 Sputum, Induced/Lukens Gram Stain - Final 05/13/22 09:30 Sputum, Induced/Lukens Respiratory Culture - Final Presumptive C albicans 05/12/22 22:30 Urine, Catheterized Urine Culture - Final Culture exhibits no growth. 05/13/22 00:46 Urine Catheter - Catheter Legionella Antigen - Final 05/13/22 00:46 Urine Catheter - Catheter Streptococcus pneumoniae Antigen (M - Final 05/12/22 22:30 Nasal Secretion SARS-CoV-2 & FLU Antigen (Rapid) - Final Rhythm Strip Rhythm Strip: In and out of sinus rhythm Physical Exam Const alert, oriented x3 and no apparent distress Constitutional Narrative: frail, emaciated General Appearance: cooperative, intubated and patient mechanically ventilated HEENT normocephalic, head/scalp atraumatic and moist oral mucous membranes Eyes PERRL, EOMs intact bilaterally and conjunctivae normal Eyes Narrative: patient visually impaired; unable to see number of fingers shown her, and has to trace fingers to know the number held up Neck no lymphadenopathy, supple and no JVD General: trachea midline Lymph Lymphatic: no lymphadenopathy noted and no lymphedema noted Resp normal respiratory effort, normal air movement, no retractions, no use of accessory muscles and clear to auscultation bilaterally Resp Narrative: mildly diminished breath sounds bibasally, no wheezes or crackles. On room air. Auscultation: Negative for crackles, rales, rhonchi or wheezes Cardio regular rate, regular rhythm, S1 normal heart sound, S2 normal heart sound and no murmurs Cardio Narrative: tachycardia GI normal to inspection, nondistended, normoactive bowel sounds, soft to palpation, non-tender and non-distended; Negative for hepatosplenomegaly GI Narrative: PEG tube in place; small periumbilical hemaoma at surgical site. Surgical site healing well. Bleeding from PEG tube site has improved. Extremity normal capillary refill, no clubbing, cyanosis or edema and no calf tenderness Skin no rashes or lesions noted General Skin Exam: no breakdown Neuro CN's II-XII intact bilaterally, no focal motor deficits and no sensory deficits noted Neuro Narrative: unable to move her left upper extremity and left lower extremity. She has some movement of her RUE, but has no noticeable movement of her RLE either. Sensorium / Orientation: sedated on vent Motor Exam: general weakness Psych Psych Narrative: lethargic Appearance: appropriate Mood & Affect: flat affect Assessment & Plan Assessment/Plan (1) Blood loss anemia: (2) Candidemia: PLAN: Plan #Acute hypoxic respiratory failure due to aspiration pneumonia and ARDS * extubated and now on room air. * sputum cultures are negative * completed a course of antibiotics * remains on room air * #Acute CVA * patient was noted to have left sided hemiparesis after extubation (not right sided hemiparesis as noted in previous documentation) * CT of the brain showed large areas of abnormal edema in the parietal occipital lobes with smaller regions of abnormal edema in the cerebellum concerning for large acute infarctions versus hepatic encephalopathy. * CTA head and neck showed no evidence of hemodynamic currently significant stenosis * on aspirin and lovenox due to afib * on high intensity statin * PT OT on board. * MRI of the brain showed large areas of restricted diffusion in the bilateral posterior cerebral hemispheres concerning for large acute infarct and small bilateral cerebellar infarcts as well as small acute lacunar infarct in the bilateral basal ganglia. * 2D echo showed normal left ventricular size with normal left ventricular systolic function and EF of 65% with negative bubble study. * has impaired vision likely due to stroke. #Candidemia: * ?blood culture positive for resumptive rocky albicans. ID on board * repeat blood cultures ordered and pending * MIKO showed no evidence of vegetations * completed a course of IV fluconazole. * * #Afib * heart rate in the 110s today. * on therapeutic lovenox * on metoprolol 12.5mg bid * switch to PO eliquis 2.5mg bid via PEG Tube * #ROSALIE * resolved. #Small bowel obstruction and incarcerated hernia * s/p exploratory laparotomy * general surgery on board. * on tube feeds * management as per general surgery * has PEG tube in place * had increased bleeding at site of PEG tbue today. Did have some stitches placed by general surgery yesterday. * * #Hypokalemia, hypomagnesemia and hypophosphatemia:resolved * #Anemia: resolved. Will monitor. She had some bleeding from PEG tube site which has improved. #Hypotension: resolved. #Nutrition: on tube feed via PEG tube DVT prophylaxis: lovenox therapeutic dose. Disposition:aw[facility]ing [facility] said they dont think patient is ready for discharge to their facility, and to re-evaluate on Tuesday Charges/Coding Visit Charges Inpatient E&M: 21639 Subs Hosp L2
[2022-06-06 14:03] VITALS: BP 124/85; PULSE 105; RESP 16; TEMP 36.5; O2SAT 97
--- NOTE | 2022-06-06 14:45 | PCM.TXEXTCAR ---
Diet Diet Order/Speech Therapy: 05/29/22 13:00 Diet: Regular - General Food consistency:: Pureed Liquid Consistency:: Regular/Thin Type of Dietary Supplement:: Ensure Compact w/ break Is pt able to select menu?: No Diet Comments: MOIST Puree, fortified pudding w/ lunch & dinner; total feed; meds crushed Routine Orders/Code Status Enema Type: Fleetz Enema Frequency: Daily PRN Suppository Type: Dulcolax 10mg Suppository Frequency: Daily PRN O2 Frequency: PRN Keep PO Greater than or Equal to (%): 90 Wound(s) midline abdominal: Wound Type: Surgical Incision right and left lap sites: Wound Type: Surgical Incision coccyx: Wound Type: Pressure Injury PEG TUBE PLACEMENT SITE: Wound Type: Surgical Incision LEFT HIP: Wound Type: Abrasion Therapies Weight Bearing: Weight bearing as tolerated Problem/Diagnosis (1) S/P exploratory laparotomy: Status: Acute Code(s): Z98.890 - Other specified postprocedural states Comment: 05/13- reduction of LIH and small bowel resection and anastomatosis Plan #Acute hypoxic respiratory failure due to aspiration pneumonia and ARDS extubated and now on room air. sputum cultures are negative completed a course of antibiotics remains on room air #Acute CVA patient was noted to have left sided hemiparesis after extubation (not right sided hemiparesis as noted in previous documentation) CT of the brain showed large areas of abnormal edema in the parietal occipital lobes with smaller regions of abnormal edema in the cerebellum concerning for large acute infarctions versus hepatic encephalopathy. CTA head and neck showed no evidence of hemodynamic currently significant stenosis on aspirin and lovenox due to afib on high intensity statin PT OT on board. MRI of the brain showed large areas of restricted diffusion in the bilateral posterior cerebral hemispheres concerning for large acute infarct and small bilateral cerebellar infarcts as well as small acute lacunar infarct in the bilateral basal ganglia. 2D echo showed normal left ventricular size with normal left ventricular systolic function and EF of 65% with negative bubble study. has impaired vision likely due to stroke. #Candidemia: ?blood culture positive for resumptive rocky albicans. ID on board repeat blood cultures ordered and pending MIKO showed no evidence of vegetations completed a course of IV fluconazole. #Afib heart rate in the 110s today. on therapeutic lovenox on metoprolol 12.5mg bid switch to PO eliquis 2.5mg bid via PEG Tube #ROSALIE resolved. #Small bowel obstruction and incarcerated hernia s/p exploratory laparotomy general surgery on board. on tube feeds management as per general surgery has PEG tube in place had increased bleeding at site of PEG tbue today. Did have some stitches placed by general surgery yesterday. #Hypokalemia, hypomagnesemia and hypophosphatemia:resolved #Anemia: resolved. Will monitor. She had some bleeding from PEG tube site which has improved. #Hypotension: resolved. #Nutrition: on tube feed via PEG tube DVT prophylaxis: lovenox therapeutic dose. Disposition:awaiting placement. [facility] doctor said they dont think patient is ready for discharge to their facility, and to re-evaluate on Tuesday Allergies/Procedures Done in Hospital Allergies No Known Allergies Allergy (Unverified 04/30/22 13:32) Procedures: 2-D Echocardiogram Type of Care/Length of Stay Estimated LOS: Convalescent Care Less Than 30 days Type of Care Needed: Skilled Rehab Potential: Poor Prognosis: Poor Additional Orders/Day of Discharge Day of Discharge: 06/06/22 Dietary and Speech Recommendations Dietitian Recommendations/Changes: 1) Vital AF 1.2 currently out of stock and has laboratory tech back order. Appropriate to transition to Jevity 1.5 at this time. When current infusing bottle is complete, will adjust EN to Jevity 1.5 via PEG at goal rate of 40mL/hour w/ 125mL H2O flush every 4 hours to provide 1440 calories, 61 g protein, and 1480mL total fluid/day. 2) Continue PO diet per CERTIFIED NURSE OPERATING ROOM- Regular- Pureed/Thin liquids; total feed. Ensure Compact w/ breakfast; Fortified Pudding w/ lunch and dinner for additional protein/calories if consumed. 3) Continue daily wts. Speech Linguistic Eval Summary: Informal cognitive evaluation in addition to BCAT. Orientation - Oriented to self, . Given choice array of 2 - able to correctly ID age. Month able to recall w/ cueing of Easter is Tuesday. Choice array of 2 - able to correctly ID year. Able to state she is at [facility], however unable to state why. Automatics - W/ CERTIFIED NURSE OPERATING ROOM starting task of Tuesday...Tuesday... - able to name the other 5 days of the week. W/ CERTIFIED NURSE OPERATING ROOM starting task of February.. March... w/ patient able to name months from April-September. Unable to complete task after September. Auditory comprehension - able to follow 1 step directions w/ patient success 100%. Able to answer y/n w/ patient success 88%. Verbal expression - able to name 2 animals/60s timeframe, able to name 2 girls names/60s. Unable to complete confrontation task d/t severe vision deficits suspect d/t CVA. Memory - able to recall 4/12 details of story independently. Given 2 min delay - able to recall 0/12. Able to answer comprehension questions after delay of story given choice array of 3 w/ 3/5 acc. Immediate recall of 4 words - 4/4 100%. Given delay - able to recall 0/4 independently or w/ phonemic and semantic cueing. Follow Up Care Please Follow Up With: Tahmina Wayne MD Discharge Plan Admission Admit Date/Time: 05/13/22 00:28 Primary Reason for Your Visit: acute respiratory failure, small bowel obstruction Attending Provider: Lucinda Fu Primary Care Provider: Lance Daley Consulting Providers: René Gutierrez ; Tahmina Wayne ; Romero Hernandez ; Nik Rosa ; Hi Unger ; Bolivar Suarez ; Jj Sahni ; Camilla Goode NP ; Anita Mcgee ; Noel Michele ; Lucinda Fu ; Silvana Dennis Discharge Orders/Prescriptions Prescriptions: New Eliquis 2.5 mg tablet 2.5 mg feeding tube BID Qty: 60 1RF Rx Instructions: to be crushed and administered via PEG tube pantoprazole [address] for susp in packet 40 mg feeding tube DAILY Qty: 30 1RF Rx Instructions: to be administered via PEG tube metoprolol tartrate 25 mg tablet 25 mg feeding tube BID Qty: 60 1RF Discontinued calcium 600 mg Capsule 600 mg PO DAILY multivitamin Capsule 1 cap PO DAILY cholecalciferol (vitamin D3) [Vitamin D3] 25 mcg (1,000 unit) Tablet,Chewable 25 mcg PO DAILY Hair, Skin and Nails (biotin) 10,000 mcg Tablet,Chewable 10,000 mcg PO DAILY Referrals / Follow Up: iH Unger DO [Med Staff - Active Staff] - Within 2 Weeks Lance Daley MD [Primary Care Provider] - Within 2 Weeks Disposition Disposition (needs filled in before D/C Order can be placed): Care Home Facility
--- NOTE | 2022-06-06 14:46 | DS.PCM_ITS ---
Providers Date of Admission: 05/13/22 Primary Care Physician: Dr. Lance Daley MD Consultations 05/13/22 00:41 Consult: [employer] / Pulmonary Medicine Routine Consulting Provider: René Gutierrez Reason for Consult: Septic shock EMERGENT Consult: No Notified: Yes Date Notified: 05/13/22 Time Notified: 06:30 Method of Notification: Verbal Method of Consult:: In-Person 05/13/22 03:12 Consult: General Surgery Routine Consulting Provider: Nik Rosa Reason for Consult: Small bowel obstruction EMERGENT Consult: No Notified: Yes Date Notified: 05/13/22 Time Notified: 03:13 Method of Notification: ED Physician Initiated 05/13/22 06:28 Consult: [employer] / Pulmonary Medicine Routine Consulting Provider: Pulmonary Medicine [facility] Reason for Consult: icu management EMERGENT Consult: Yes Notified: Yes Date Notified: 05/13/22 Time Notified: 06:13 Method of Notification: Verbal 05/14/22 08:42 Consult: Nephrology Routine Consulting Provider: Anita Mcgee Reason for Consult: rosalie, ?dialysis EMERGENT Consult: Yes Notified: Yes Date Notified: 05/14/22 Time Notified: 08:43 Method of Notification: Answering Service 05/19/22 12:24 Consult: Infectious Disease Routine Consulting Provider: Noel Michele Reason for Consult: candidemia EMERGENT Consult: No Notified: Yes Date Notified: 05/19/22 Time Notified: 12:24 Method of Notification: Verbal Reason For Visit: SEPSIS SECONDARY TO PNEUMONIA Diagnosis Discharge Diagnosis (1) S/P exploratory laparotomy: Status: Acute Code(s): Z98.890 - Other specified postprocedural states Plan #Acute hypoxic respiratory failure due to aspiration pneumonia and ARDS * extubated and now on room air. * sputum cultures are negative * completed a course of antibiotics * remains on room air * #Acute CVA * patient was noted to have left sided hemiparesis after extubation (not right sided hemiparesis as noted in previous documentation) * CT of the brain showed large areas of abnormal edema in the parietal occipital lobes with smaller regions of abnormal edema in the cerebellum concerning for large acute infarctions versus hepatic encephalopathy. * CTA head and neck showed no evidence of hemodynamic currently significant stenosis * on aspirin and lovenox due to afib * on high intensity statin * PT OT on board. * MRI of the brain showed large areas of restricted diffusion in the bilateral posterior cerebral hemispheres concerning for large acute infarct and small bilateral cerebellar infarcts as well as small acute lacunar infarct in the bilateral basal ganglia. * 2D echo showed normal left ventricular size with normal left ventricular systolic function and EF of 65% with negative bubble study. * has impaired vision likely due to stroke. #Candidemia: * ?blood culture positive for resumptive rocky albicans. ID on board * repeat blood cultures ordered and pending * MIKO showed no evidence of vegetations * completed a course of IV fluconazole. * * #Afib * heart rate in the 110s today. * on therapeutic lovenox * on metoprolol 12.5mg bid * switch to PO eliquis 2.5mg bid via PEG Tube * #ROSALIE * resolved. #Small bowel obstruction and incarcerated hernia * s/p exploratory laparotomy * general surgery on board. * on tube feeds * management as per general surgery * has PEG tube in place * had increased bleeding at site of PEG tbue today. Did have some stitches placed by general surgery yesterday. * * #Hypokalemia, hypomagnesemia and hypophosphatemia:resolved * #Anemia: resolved. Will monitor. She had some bleeding from PEG tube site which has improved. #Hypotension: resolved. #Nutrition: on tube feed via PEG tube DVT prophylaxis: lovenox therapeutic dose. Disposition:awaiting placement. [facility] said they dont think patient is ready for discharge to their facility, and to re-evaluate on Tuesday Medications at Discharge Home Medications apixaban 2.5 mg tablet (Eliquis) 2.5 mg feeding tube BID #60 tabs 06/06/22 metoprolol tartrate 25 mg tablet 25 mg feeding tube BID #60 tabs 06/06/22 pantoprazole 40 mg granules delayed-release for susp in packet 40 mg feeding tube DAILY #30 ea 06/06/22 Medical Records Data Medical Nutrition Assessment Dietitian: Malnutrition Criteria Met Start: 05/31/22 15:58 Freq: Status: Active Protocol: Document 06/05/22 10:50 AG (Rec: 06/05/22 10:50 AG [id number]) Nutrition Malnutrition Evidence of Malnutrition Exists Yes Malnutrition (severe): Acute Illness/Injury Evidenced By Suboptimal Energy Intake ( Severe),Weight Loss (Severe), Physical Changes (Severe) Intake Problem Inadequate Oral Intake Etiology related to mental status, swallowing difficulty Signs/Symptoms as evidenced by unintentional wt loss, estimated PO intake meeting <50% of estimated energy needs Status Active Problem Clinical Problem Acute Disease or Injury Related Malnutrition Etiology Severe protein-calorie malnutrition in the context of acute disease related to inadequate energy intake and swallowing difficulty Signs/Symptoms as evidenced by 6kg/12% wt loss x 3 weeks; severe muscle wasting and loss evident in orbital, clavicle, acromion, and temporal areas per physical exam; estimated PO intake meeting <50% of estimated energy needs > 5 days; BMI 17.2 Status Active Problem Unintended Weight Loss Etiology related to inadequate energy intake Signs/Symptoms as evidenced by 6kg/12% wt loss x 3 weeks Status Active Problem Recommendation Dietitian Recommendations/Changes 1) Vital AF 1.2 currently out of stock and has bulk pallet builder back order. Appropriate to transition to Jevity 1.5 at this time. When current infusing bottle is complete, will adjust EN to Jevity 1.5 via PEG at goal rate of 40mL/ hour w/ 125mL H2O flush every 4 hours to provide 1440 calories, 61 g protein, and 1480mL total fluid/day. 2) Continue PO diet per [facility]- Regular- Pureed/Thin liquids; total feed. Ensure Compact w/ breakfast; Fortified Pudding w / lunch and dinner for additional protein/calories if consumed. 3) Continue daily wts. Weight / BMI Weight Weight: 89 lb 11.65 oz Body Mass Index (BMI) 16.5 ABG / Lab / Microbiology Data Result Diagrams: 06/06/22 05:35 06/05/22 06:08 Laboratory: Laboratory Results - last 24 hr 06/06/22 05:35: WBC 12.1 H, RBC 2.79 L, Hgb 8.8 L, Hct 27.0 L, MCV 96.8, MCH 31.5, MCHC 32.6, RDW Std Deviation 53.6 H, RDW Coeff of Audrey 15.5 H, Plt Count 338, MPV 8.8, Immature Gran % (Auto) 2.600 H, Neut % (Auto) 64.8, Lymph % (Auto) 22.1, [place] % (Auto) 8.2, Eos % (Auto) 1.7, Baso % (Auto) 0.6, Absolute Neuts (auto) 7.9 H, Absolute Lymphs (auto) 2.68, Nucleated RBC % 0 Microbiology: Microbiology 05/28/22 11:10 Blood Culture (Wb) - Left Hand Blood Culture - Final No growth in 5 days. 05/28/22 11:05 Blood Culture (Wb) - Anticubital Left Blood Culture - Final No growth in 5 days. 05/28/22 17:00 Urine, Random Urine Culture - Final Culture exhibits no growth. 05/21/22 14:07 Blood Culture (Wb) - Anticubital Right Blood Culture - Final No growth in 5 days. 05/20/22 08:17 Blood Culture (Wb) - Anticubital Right Blood Culture - Final No growth in 5 days. 05/14/22 05:55 Blood Culture (Wb) - Left Forearm Blood Culture - Final Presumptive C albicans 05/14/22 05:35 Blood Culture (Wb) - Right Forearm Blood Culture - Final No growth in 5 days. 05/12/22 22:50 Blood Culture (Wb) - Chest Blood Culture - Final No growth in 5 days. 05/12/22 22:29 Blood Culture (Wb) - Right Wrist Blood Culture - Final No growth in 5 days. 05/14/22 11:30 Urine Catheter - Isbell Urine Culture - Final Culture exhibits no growth. 05/13/22 09:30 Sputum, Induced/Lukens Gram Stain - Final 05/13/22 09:30 Sputum, Induced/Lukens Respiratory Culture - Final Presumptive C albicans 05/12/22 22:30 Urine, Catheterized Urine Culture - Final Culture exhibits no growth. 05/13/22 00:46 Urine Catheter - Catheter Legionella Antigen - Final 05/13/22 00:46 Urine Catheter - Catheter Streptococcus pneumoniae Antigen (M - Final 05/12/22 22:30 Nasal Secretion SARS-CoV-2 & FLU Antigen (Rapid) - Final D/C Instructions Cleanse incision/area with: Soap & Water Additional Dressing/Incision Instructions: Patient have has firmness to her midline incision due to previous hematoma. This was confirmed on CT. Patient also has [address] in place with 3-0 nylon which will need to be removed on approximately 06/11/2022 (10 days) unless it is felt that it needs to be left in for another 4 days. PEG site is at 2.5. Currently there is 1 layer of a drain sponge underneath as she had previously been having some bleeding currently there has been no bleeding since 04/2022 AM as patient did have silver nitrate to the area. Please Follow Up With: Tahmina Wayne MD When: in 3-4 weeks Discharge Plan Admission Admit Date/Time: 05/13/22 00:28 Primary Reason for Your Visit: acute respiratory failure, small bowel obstruction Attending Provider: Lucinda Fu Primary Care Provider: Lance Daley Consulting Providers: René Gutierrez ; Tahmina Wayne ; Romero Hernandez ; Nik Rosa ; Hi Unger ; Bolivar Suarez ; Jj Sahni ; Camilla Goode NP ; Anita Mcgee ; Noel Michele ; Lucinda Fu ; Silvana Dennis Discharge Orders/Prescriptions Prescriptions: New Eliquis 2.5 mg tablet 2.5 mg feeding tube BID Qty: 60 1RF Rx Instructions: to be crushed and administered via PEG tube pantoprazole [address] for susp in packet 40 mg feeding tube DAILY Qty: 30 1RF Rx Instructions: to be administered via PEG tube metoprolol tartrate 25 mg tablet 25 mg feeding tube BID Qty: 60 1RF Discontinued calcium 600 mg Capsule 600 mg PO DAILY multivitamin Capsule 1 cap PO DAILY cholecalciferol (vitamin D3) [Vitamin D3] 25 mcg (1,000 unit) Tablet,Chewable 25 mcg PO DAILY Hair, Skin and Nails (biotin) 10,000 mcg Tablet,Chewable 10,000 mcg PO DAILY Referrals / Follow Up: Hi Unger DO [Med Staff - Active Staff] - Within 2 Weeks Lance Daley MD [Primary Care Provider] - Within 2 Weeks Disposition Disposition (needs filled in before D/C Order can be placed): [facility]
--- NOTE | 2022-06-06 14:58 | DS.PCM_ITS ---
Providers Date of Admission: 05/13/22 Date of Discharge: 06/06/22 Primary Care Physician: Dr. Lance Daley MD Consultations 05/13/22 00:41 Consult: Reading Efficiency Course Director / Pulmonary Medicine Routine Consulting Provider: René Gutierrez Reason for Consult: Septic shock EMERGENT Consult: No MD Notified: Yes Date Notified: 05/13/22 Time Notified: 06:30 Method of Notification: Verbal Method of Consult:: In-Person 05/13/22 03:12 Consult: General Surgery Routine Consulting Provider: Nik Rosa Reason for Consult: Small bowel obstruction EMERGENT Consult: No Notified: Yes Date Notified: 05/13/22 Time Notified: 03:13 Method of Notification: ED Physician Initiated 05/13/22 06:28 Consult: Reading Efficiency Course Director / Pulmonary Medicine Routine Consulting Provider: Pulmonary Medicine qi Renault Reason for Consult: icu management EMERGENT Consult: Yes MD Notified: Yes Date Notified: 05/13/22 Time Notified: 06:13 Method of Notification: Verbal 05/14/22 08:42 Consult: Nephrology Routine Consulting Provider: Anita Mcgee Reason for Consult: rosalie, ?dialysis EMERGENT Consult: Yes MD Notified: Yes Date Notified: 05/14/22 Time Notified: 08:43 Method of Notification: Answering Service 05/19/22 12:24 Consult: Infectious Disease Routine Consulting Provider: Noel Michele Reason for Consult: candidemia EMERGENT Consult: No MD Notified: Yes Date Notified: 05/19/22 Time Notified: 12:24 Method of Notification: Verbal Reason For Visit: SEPSIS SECONDARY TO PNEUMONIA Diagnosis Discharge Diagnosis (1) S/P exploratory laparotomy: Status: Acute Code(s): Z98.890 - Other specified postprocedural states Plan #Acute hypoxic respiratory failure due to aspiration pneumonia and ARDS * extubated and now on room air. * sputum cultures are negative * completed a course of antibiotics * remains on room air * #Acute CVA * patient was noted to have left sided hemiparesis after extubation (not right sided hemiparesis as noted in previous documentation) * CT of the brain showed large areas of abnormal edema in the parietal occipital lobes with smaller regions of abnormal edema in the cerebellum concerning for large acute infarctions versus hepatic encephalopathy. * CTA head and neck showed no evidence of hemodynamic currently significant stenosis * on aspirin and lovenox due to afib * on high intensity statin * PT OT on board. * MRI of the brain showed large areas of restricted diffusion in the bilateral posterior cerebral hemispheres concerning for large acute infarct and small bilateral cerebellar infarcts as well as small acute lacunar infarct in the bilateral basal ganglia. * 2D echo showed normal left ventricular size with normal left ventricular systolic function and EF of 65% with negative bubble study. * has impaired vision likely due to stroke. #Candidemia: * ?blood culture positive for resumptive rocky albicans. ID on board * repeat blood cultures ordered and pending * MIKO showed no evidence of vegetations * completed a course of IV fluconazole. * * #Afib * heart rate in the 110s today. * on therapeutic lovenox * on metoprolol 12.5mg bid * switch to PO eliquis 2.5mg bid via PEG Tube * #ROSALIE * resolved. #Small bowel obstruction and incarcerated hernia * s/p exploratory laparotomy * general surgery on board. * on tube feeds * management as per general surgery * has PEG tube in place * had increased bleeding at site of PEG tbue today. Did have some stitches placed by general surgery yesterday. * * #Hypokalemia, hypomagnesemia and hypophosphatemia:resolved * #Anemia: resolved. Will monitor. She had some bleeding from PEG tube site which has improved. #Hypotension: resolved. #Nutrition: on tube feed via PEG tube DVT prophylaxis: lovenox therapeutic dose. Disposition:awaiting placement. [facility] doctor said they dont think patient is ready for discharge to their facility, and to re-evaluate on Tuesday Medications at Discharge Home Medications apixaban 2.5 mg tablet (Eliquis) 2.5 mg feeding tube BID #60 tabs 06/06/22 atorvastatin 40 mg tablet 40 mg feeding tube DAILY #30 tabs 06/06/22 metoprolol tartrate 25 mg tablet 25 mg feeding tube BID #60 tabs 06/06/22 pantoprazole 40 mg granules delayed-release for susp in packet 40 mg feeding tube DAILY #30 ea 06/06/22 Hospital Course Operations - (explorative laparotomy) Procedures 2-D Echocardiogram and Central line placement Summary of Care Provided Minutes Spent on Discharge: 55 Hospital Course: Patient is a 56-year-old female with no significant past medical history was admitted through the ED on 05/12/2022 after the EMS was called to her home when she was found unresponsive on the kitchen floor. Family had noted that patient had been dizzy and she subsequently passed out. On admission in the ED she was hypothermic but normotensive. She is however she subsequently became hypotensive and required increasing amounts of oxygen. She was also very tachypneic and labs done showed elevated white cell count with sodium of 129 and potassium of 2.6. Creatinine was 2.1. Uric acid was elevated at 18.7 and lactic acid was 4.7. Urinalysis was unremarkable. CT of the brain showed no acute intracranial pathology and chest x-ray showed bilateral infiltrates consistent with pneumonia. CT of the abdomen and pelvis showed a severely dilated stomach and small bowel and there was concern for incarcerated hernia with subsequent small bowel obstruction. She had apparently not been eating well at home. General surgery was consulted and she was taken emergently to the operating room. She was admitted to the ICU from the operating room was intubated, hypoxic and hypotensive. She was started on vasopressors to help with hemodynamic support. She was managed for acute hypoxic respiratory failure due to bilateral pneumonia as well as bowel obstruction with incarcerated hernia and septic shock. She was started on broad-spectrum antibiotics. She subsequently was noted to be in A-fib with RVR and was started on Cardizem drip as well. Patient had a long protracted hospital course which was complicated by acute stroke after she was found to have decreased movement of her left side. CT of the brain done showed large regions of abnormal edema in the parietal occipital lobes with smaller regions of abnormal edema in the cerebellum concerning for large acute infarctions versus acute hypertensive encephalopathy. Patient was subsequently eventually extubated. Her blood cultures grew Rocky and she completed a 2-week course of IV fluconazole. She did note feeling dysphagia screening and so she had a PEG tube inserted. This was also complicated by bleeding from the PEG tube site. A week after the stroke she was started on anticoagulation for the A-fib. This was held briefly in light of her having bleeding from the PEG tube site but it was subsequently resumed. It was also subsequently noted that patient was visually impaired and this was likely due to the stroke that she had sustained whilst in the hospital. Patient was finally accepted at [facility] and was discharged to [facility] on 06/06/2022. She was started on p.o. metoprolol to be administered through the PEG tube. Of note she did have MIKO which showed no evidence of vegetations. Hospital course was also complicated by electrolyte abnormalities and ROSALIE which resolved. She was discharged to [facility] on 06/06/2022. Patient was seen and examined prior to discharge. She was lying in bed and had no complaints. She was noted to be visually impaired as she could not track fingers and could not tell the number of fingers and hand. Review of systems otherwise negative. Bleeding from PEG site had markedly improved. Physical Exam Const alert, oriented x3 and no apparent distress Constitutional Narrative: frail, emaciated General Appearance: cooperative, comfortable, intubated and patient mechanically ventilated HEENT normocephalic, head/scalp atraumatic and moist oral mucous membranes Eyes PERRL, EOMs intact bilaterally and conjunctivae normal Eyes Narrative: patient visually impaired; unable to see number of fingers shown her, and has to trace fingers to know the number held up Neck no lymphadenopathy, supple and no JVD General: trachea midline Lymph Lymphatic: no lymphadenopathy noted and no lymphedema noted Resp normal respiratory effort, normal air movement, no retractions, no use of accessory muscles and clear to auscultation bilaterally Resp Narrative: mildly diminished breath sounds bibasally, no wheezes or crackles. On room air. Auscultation: Negative for crackles, rales, rhonchi or wheezes Cardio regular rate, regular rhythm, S1 normal heart sound, S2 normal heart sound and no murmurs Cardio Narrative: tachycardia GI normal to inspection, nondistended, normoactive bowel sounds, soft to palpation, non-tender and non-distended; Negative for hepatosplenomegaly GI Narrative: PEG tube in place; small periumbilical hemaoma at surgical site. Surgical site healing well. Bleeding from PEG tube site has improved. Extremity normal capillary refill, no clubbing, cyanosis or edema and no calf tenderness Skin no rashes or lesions noted General Skin Exam: no breakdown Neuro no focal motor deficits and no sensory deficits noted Neuro Narrative: unable to move her left upper extremity and left lower extremity. She has some movement of her RUE, but has no noticeable movement of her RLE either. Visually impaired Sensorium / Orientation: sedated on vent Motor Exam: strength 5/5 throughout and general weakness Psych thought process normal Psych Narrative: lethargic Appearance: appropriate and intubated Mood & Affect: flat affect Medical Records Data Medical Nutrition Assessment Dietitian: Malnutrition Criteria Met Start: 05/31/22 15:58 Freq: Status: Active Protocol: Document 06/05/22 10:50 AG (Rec: 06/05/22 10:50 AG [id number]) Nutrition Malnutrition Evidence of Malnutrition Exists Yes Malnutrition (severe): Acute Illness/Injury Evidenced By Suboptimal Energy Intake ( Severe),Weight Loss (Severe), Physical Changes (Severe) Intake Problem Inadequate Oral Intake Etiology related to mental status, swallowing difficulty Signs/Symptoms as evidenced by unintentional wt loss, estimated PO intake meeting <50% of estimated energy needs Status Active Problem Clinical Problem Acute Disease or Injury Related Malnutrition Etiology Severe protein-calorie malnutrition in the context of acute disease related to inadequate energy intake and swallowing difficulty Signs/Symptoms as evidenced by 6kg/12% wt loss x 3 weeks; severe muscle wasting and loss evident in orbital, clavicle, acromion, and temporal areas per physical exam; estimated PO intake meeting <50% of estimated energy needs > 5 days; BMI 17.2 Status Active Problem Unintended Weight Loss Etiology related to inadequate energy intake Signs/Symptoms as evidenced by 6kg/12% wt loss x 3 weeks Status Active Problem Recommendation Dietitian Recommendations/Changes 1) Vital AF 1.2 currently out of stock and has button spindler back order. Appropriate to transition to Jevity 1.5 at this time. When current infusing bottle is complete, will adjust EN to Jevity 1.5 via PEG at goal rate of 40mL/ hour w/ 125mL H2O flush every 4 hours to provide 1440 calories, 61 g protein, and 1480mL total fluid/day. 2) Continue PO diet per [facility]- Regular- Pureed/Thin liquids; total feed. Ensure Compact w/ breakfast; Fortified Pudding w / lunch and dinner for additional protein/calories if consumed. 3) Continue daily wts. Weight / BMI Weight Weight: 89 lb 11.65 oz Body Mass Index (BMI) 16.5 ABG / Lab / Microbiology Data Result Diagrams: 06/06/22 05:35 06/05/22 06:08 Laboratory: Laboratory Results - last 24 hr 06/06/22 05:35: WBC 12.1 H, RBC 2.79 L, Hgb 8.8 L, Hct 27.0 L, MCV 96.8, MCH 31.5, MCHC 32.6, RDW Std Deviation 53.6 H, RDW Coeff of Audrey 15.5 H, Plt Count 338, MPV 8.8, Immature Gran % (Auto) 2.600 H, Neut % (Auto) 64.8, Lymph % (Auto) 22.1, [place] % (Auto) 8.2, Eos % (Auto) 1.7, Baso % (Auto) 0.6, Absolute Neuts (auto) 7.9 H, Absolute Lymphs (auto) 2.68, Nucleated RBC % 0 Microbiology: Microbiology 05/28/22 11:10 Blood Culture (Wb) - Left Hand Blood Culture - Final No growth in 5 days. 05/28/22 11:05 Blood Culture (Wb) - Anticubital Left Blood Culture - Final No growth in 5 days. 05/28/22 17:00 Urine, Random Urine Culture - Final Culture exhibits no growth. 05/21/22 14:07 Blood Culture (Wb) - Anticubital Right Blood Culture - Final No growth in 5 days. 05/20/22 08:17 Blood Culture (Wb) - Anticubital Right Blood Culture - Final No growth in 5 days. 05/14/22 05:55 Blood Culture (Wb) - Left Forearm Blood Culture - Final Presumptive C albicans 05/14/22 05:35 Blood Culture (Wb) - Right Forearm Blood Culture - Final No growth in 5 days. 05/12/22 22:50 Blood Culture (Wb) - Chest Blood Culture - Final No growth in 5 days. 05/12/22 22:29 Blood Culture (Wb) - Right Wrist Blood Culture - Final No growth in 5 days. 05/14/22 11:30 Urine Catheter - Isbell Urine Culture - Final Culture exhibits no growth. 05/13/22 09:30 Sputum, Induced/Lukens Gram Stain - Final 05/13/22 09:30 Sputum, Induced/Lukens Respiratory Culture - Final Presumptive C albicans 05/12/22 22:30 Urine, Catheterized Urine Culture - Final Culture exhibits no growth. 05/13/22 00:46 Urine Catheter - Catheter Legionella Antigen - Final 05/13/22 00:46 Urine Catheter - Catheter Streptococcus pneumoniae Antigen (M - Final 05/12/22 22:30 Nasal Secretion SARS-CoV-2 & FLU Antigen (Rapid) - Final D/C Instructions Discharge Diet: - (tube feed via PEG tube) Weight Bearing Status: Weight bearing as tolerated Call your doctor if you observe: Fever of 101 or Higher, Shortness of breath, Dizziness, Swelling in the ankles and Increased palpitations (irregular heartbeat) Cleanse incision/area with: Soap & Water Additional Dressing/Incision Instructions: Patient have has firmness to her midline incision due to previous hematoma. This was confirmed on CT. Patient also has [address]ures in place with 3-0 nylon which will need to be removed on approximately 06/11/2022 (10 days) unless it is felt that it needs to be left in for another 4 days. PEG site is at 2.5. Currently there is 1 layer of a drain sponge underneath as she had previously been having some bleeding currently there has been no bleeding since 04/2022 AM as patient did have silver nitrate to the area. Please Follow Up With: Tahmina Wayne MD When: in 3-4 weeks Meaningful Use Info Meaningful Use Diagnoses (Choose all that apply): Ischemic CVA CVA Therapy Assessed for PT,OT and/or ST?: Yes Ischemic Stroke Antithrombotic order at d/c?: Yes Dx of Atrial fib/flutter?: Yes Anticoagulant at discharge?: Yes Statins at discharge?: No Reason Statin not ordered: Treatment not Indicated Primary Dx Acute Ischemic CVA?: Yes IV thrombolytic ordered during stay?: No Reason IV thrombolytic not ordered: Treatment not Indicated Discharge Plan Admission Admit Date/Time: 05/13/22 00:28 Primary Reason for Your Visit: acute respiratory failure, small bowel obs truction Attending Provider: Lucinda Fu Primary Care Provider: Lance Daley Consulting Providers: René Gutierrez ; Tahmina Wayne ; Romero Hernandez ; Nik Rosa ; Hi Unger ; Bolivar Suarez ; Jj Sahni ; Camilla Goode NP ; Anita Mcgee ; Noel Michele ; Lucinda Fu ; Silvana Dennis Discharge Orders/Prescriptions Prescriptions: New Eliquis 2.5 mg tablet 2.5 mg feeding tube BID Qty: 60 1RF Rx Instructions: to be crushed and administered via PEG tube pantoprazole [address] for susp in packet 40 mg feeding tube DAILY Qty: 30 1RF Rx Instructions: to be administered via PEG tube metoprolol tartrate 25 mg tablet 25 mg feeding tube BID Qty: 60 1RF atorvastatin 40 mg tablet 40 mg feeding tube DAILY Qty: 30 1RF Discontinued calcium 600 mg Capsule 600 mg PO DAILY multivitamin Capsule 1 cap PO DAILY cholecalciferol (vitamin D3) [Vitamin D3] 25 mcg (1,000 unit) Tablet,Chewable 25 mcg PO DAILY Hair, Skin and Nails (biotin) 10,000 mcg Tablet,Chewable 10,000 mcg PO DAILY Referrals / Follow Up: Hi Unger DO [Med Staff - Active Staff] - Within 2 Weeks Lance Daley MD [Primary Care Provider] - Within 2 Weeks Disposition Disposition (needs filled in before D/C Order can be placed): [facility] Charges/Coding Visit Charges Inpatient E&M: 34580 Disch Hosp >30min
--- NOTE | 2022-06-06 16:10 | NURSING ---
Report called to [facility] at this time.
== END 2022-06-06 16:00 | disposition skilled nursing facility (03) | DRG 853 ==
LOC: ED 05-13 00:32 → ICU 05-13 03:48 → PCU 05-17 15:34 → MS3 06-01 11:18
PROVIDERS: Family Medicine; Hospitalist; Internal Medicine; Internal Medicine Critical Care Medicine; Nurse Practitioner Adult Health; Physician Assistant; Surgery; Admitting Provider Surgery; Emergency Provider Emergency Medicine; PCP Internal Medicine; Visit Provider Student in an Organized Health Care Education/Training Program
PROC: 0DTA0ZZ Resection of Jejunum, Open Approach (ICD-10-PCS; CPT 49000; principal; 2022-05-13 04:30)
PROC: 0DJ08ZZ Inspection of Upper Intestinal Tract, Via Natural or Artificial Opening Endoscopic (ICD-10-PCS; CPT 43235; principal; 2022-05-28 08:40)
DX: B37.7 Candidal sepsis (principal); J69.0 Pneumonitis due to inhalation of food and vomit; J80 Acute respiratory distress syndrome; N17.0 Acute kidney failure with tubular necrosis; G93.6 Cerebral edema; G93.41 Metabolic encephalopathy; R65.21 Severe sepsis with septic shock; I21.A1 Myocardial infarction type 2; E43 Unspecified severe protein-calorie malnutrition; I63.81 Other cerebral infarction due to occlusion or stenosis of small artery; K40.31 Unilateral inguinal hernia, with obstruction, without gangrene, recurrent; G81.94 Hemiplegia, unspecified affecting left nondominant side; E87.1 Hypo-osmolality and hyponatremia; E87.0 Hyperosmolality and hypernatremia; L76.32 Postprocedural hematoma of skin and subcutaneous tissue following other procedure; T81.31XA Disruption of external operation (surgical) wound, not elsewhere classified, initial encounter; Z68.1 Body mass index [BMI] 19.9 or less, adult; I48.91 Unspecified atrial fibrillation; K72.90 Hepatic failure, unspecified without coma; K94.21 Gastrostomy hemorrhage; E87.6 Hypokalemia; F17.210 Nicotine dependence, cigarettes, uncomplicated; I95.2 Hypotension due to drugs; E87.8 Other disorders of electrolyte and fluid balance, not elsewhere classified; E86.1 Hypovolemia; E83.39 Other disorders of phosphorus metabolism; E83.42 Hypomagnesemia; R19.7 Diarrhea, unspecified; D50.0 Iron deficiency anemia secondary to blood loss (chronic); Z53.31 Laparoscopic surgical procedure converted to open procedure; R68.0 Hypothermia, not associated with low environmental temperature; R01.1 Cardiac murmur, unspecified; R13.10 Dysphagia, unspecified; Z20.822 Contact with and (suspected) exposure to COVID-19; Y83.8 Other surgical procedures as the cause of abnormal reaction of the patient, or of later complication, without mention of misadventure at the time of the procedure; Y92.239 Unspecified place in hospital as the place of occurrence of the external cause; Y83.3 Surgical operation with formation of external stoma as the cause of abnormal reaction of the patient, or of later complication, without mention of misadventure at the time of the procedure
CPT/HCPCS: 31500; 31720; 36415; 36556; 36600; 51702; 70450; 70496; 70498; 70551; 71045; 74018; 74176; 80047; 80048; 80053; 80069; 80076; 80202; 81001; 82330; 82533; 82550; 82803; 82962; 83605; 83735; 83930; 83935; 84100; 84132; 84300; 84443; 84478; 84484; 84550; 85014; 85018; 85025; 85610; 85730; 86738; 86850; 86900; 86901; 86920; 86922; 87040; 87070; 87086; 87205; 87426; 87428; 87449; 87641; 88307; 88312; 92507; 92523; 92526; 92610; 93005; 93306; 93308; 93312; 93320; 93325; 94002; 94003; 94640; 94660; 94762; 97110; 97162; 97166; 97530; 97535; 97803; 99252; 99285; J7030; J7040; J7050; J7120; P9016; Q9967; A4216; G0463; J0295; J0696; J1940; J2405; J3010; J3490; J7799

== ENCOUNTER → 2022-07-12 | Outpatient (REF) | payer MEDICAID, SELFPAY ==
[2022-07-12 09:29] LABS: Hematocrit 37.4 % (37-47); Hemoglobin 11.5 g/dL (12.0-15.0); Mean Corp Hgb Conc 30.7 g/dL (32-36); Mean Corpuscular Hgb 30.3 pg (27.0-32.0); Mean Corpuscular Volume 98.7 fL (81-99); Mean Platelet Vol. 9.5 fl (6.2-12.0); Platelet Count 454 K/mm3 (150-450); RBC Distribution Width CV 13.9 % (11.6-14.6); RBC Distribution Width SD 50.7 fl (35.1-43.9); Red Blood Count 3.79 M/mm3 (4.2-5.4); White Blood Count 13.2 K/mm3 (4.4-11.0)
[2022-07-12 09:43] LABS: Vitamin B12 362 pg/mL (211-911); Vitamin D,25 Hydroxy 48.1 ng/mL
[2022-07-12 09:51] LABS: Anion Gap 9 (5-15); BUN 21 mg/dL (7-18); BUN/Creat Ratio 41.7 RATIO (10-20); Calcium,Total 9.3 mg/dL (8.5-10.1); Chloride 104 mmol/L (98-107); Cholesterol 153 mg/dL (200); EST Glomerular Filtration Rate 133 mL/min (>60); Est Glom Filt Rate - Afr Amer 161 mL/min (>60); Glucose 99 mg/dL (74-106); High Density Lipoprotein 44 mg/dL; Potassium 3.5 mmol/L (3.5-5.1); Sodium Level 141 mmol/L (136-145); Thyroid Stim Hormone (TSH) 1.57 uIU/mL (0.358-3.74); Triglycerides 162 mg/dL; Very Low Density Lipoprotein 32 mg/dL (5-40)
== END | disposition home or self-care (01) ==
LOC: OLS.SW 04:55
PROVIDERS: PCP Internal Medicine; Visit Provider Internal Medicine
DX: Z02.2 Encounter for examination for admission to residential institution (principal)
CPT/HCPCS: 36415; 80048; 80061; 82306; 82607; 83735; 84443; 85027

== ENCOUNTER 2022-07-15 09:24 | Emergency (ER) | payer MEDICAID, SELFPAY ==
[2022-07-15 09:26] VITALS: BP 125/88; PULSE 94; RESP 16; TEMP 36.6; O2SAT 100; BMI 15.7
--- NOTE | 2022-07-15 10:39 | EX.ED.GENINJ ---
HPI History of Present Illness Chief Complaint: Other, Pain/Inj Narrative Narrative: 56-year-old female presenting for PEG tube replacement. She is a poor informant secondary to previous stroke. residential states that her PEG tube was in last night and was out this morning. This was placed by Dr. Wayne at the end of April. She still requiring tube feeds. [facility] Medical History Acute CVA (cerebrovascular accident) Altered mental status Atrial fibrillation with rapid ventricular response Carpal tunnel syndrome Heart murmur Heartburn History of irregular heartbeat History of stress test Leg cramps On mechanically assisted ventilation Post-menopausal Reducible left inguinal hernia Seasonal allergies Smoker Wears glasses Home Medications apixaban 2.5 mg tablet (Eliquis) 2.5 mg feeding tube BID #60 tabs 06/06/22 [Rx Last Taken Unknown] atorvastatin 40 mg tablet 40 mg feeding tube DAILY #30 tabs 06/06/22 [Rx Last Taken Unknown] metoprolol tartrate 25 mg tablet 25 mg feeding tube BID #60 tabs 06/06/22 [Rx Last Taken Unknown] pantoprazole 40 mg granules delayed-release for susp in packet 40 mg feeding tube DAILY #30 ea 06/06/22 [Rx Last Taken Unknown] acetaminophen 325 mg tablet (Pain Relief (acetaminophen)) 650 mg PO Q4H PRN Pain 07/15/22 [History Last Taken Unknown] acetaminophen 325 mg tablet (Pain Relief (acetaminophen)) 650 mg PRN PRN Pain 07/15/22 [History Last Taken Unknown] aluminum-mag hydroxide-simethicone 200 mg-200 mg-20 mg/5 mL oral susp (Mag-Al Plus) 30 ml PO Q4H PRN PRN GI DISTRESS 07/15/22 [History Last Taken Unknown] bisacodyl 10 mg rectal suppository 10 mg CO DAILY CONSTIPATION 07/15/22 [History Last Taken Unknown] dextrose 40 % oral gel (Glucose Gel) PO 07/15/22 [History Last Taken Unknown] glucagon 1 mg injection kit 1 mg PRN PRN Hypoglycemia 07/15/22 [History Last Taken Unknown] sodium phosphates 19 gram-7 gram/118 mL enema (Fleet Enema) ml CO 07/15/22 [History Last Taken Unknown] Allergy/AdvReac Type Severity Reaction Status Date / Time No Known Allergies Allergy Unverified 07/15/22 09:25 Family History Mother Myocardial infarction, Onset Age: 40 Anxiety and depression Father CVA (cerebral vascular accident) Sister Thyroid disorder Aunt Breast cancer Surgical History History of appendectomy Hx of colonoscopy S/P exploratory laparotomy S/P left inguinal hernia repair Social History Smoking Status: Current every day smoker tobacco type: cigarettes Tobacco: How many years used: 20 alcohol intake: never substance use type: does not use what type of physical activity do you participate in: walking frequency: 1-2 times per week ROS ROS ED Review of Systems ROS Unobtainable: due to mental status EXAM Physical Exam Const Vital Signs: 07/15/22 09:26 07/15/22 09:26 Temperature 97.8 F Temperature Source Temporal Pulse Rate 94 Respiratory Rate 16 Respiratory Pattern Normal Blood Pressure 125/88 H Blood Pressure Mean 100 Pulse Ox 100 Oxygen Delivery Method Room Air Positive well nourished General Appearance ED: NAD HEENT atraumatic Eyes PERRL and EOMs intact bilaterally Resp normal respiratory effort and clear to auscultation bilaterally Auscultation: Negative for rales, rhonchi or wheezes Cardio regular rhythm GI GI Narrative: Tube site on abdomen appears to be mostly closed. Small dried blood around this. Extremity normal to inspection Neuro oriented x3 and CN's II-XII intact bilaterally Sensorium / Orientation: alert Motor Exam: strength 5/5 throughout Psych mental status grossly normal Skin no rashes or lesions noted MDM MDM MDM Narrative Medical decision making narrative: Patient with PEG tube displacement. I tried to replace it with a 20-gauge which was been there before but I was unable to do this successfully. Spoke with Dr. Wayne and she recommended putting a Isbell catheter in her to hold it open. I put in a 14-gauge Isbell catheter. Dr. Wayne was able to place the PEG tube. It was confirmed in place with a KUB. Dr. Wayne request he have an abdominal binder before she is discharged back to her facility. This was provided. Impression: 1 PEG tube displaced Discharge Plan Triage Chief Complaint: Other, Pain/Inj ED Provider: Yimi Lawton Dx/Rx/DC Orders Instructions: ED Feeding Tube Replacement Prescriptions: No Action Eliquis 2.5 mg tablet 2.5 mg feeding tube BID Qty: 60 1RF Rx Instructions: to be crushed and administered via PEG tube pantoprazole [address] for susp in packet 40 mg feeding tube DAILY Qty: 30 1RF Rx Instructions: to be administered via PEG tube metoprolol tartrate 25 mg tablet 25 mg feeding tube BID Qty: 60 1RF atorvastatin 40 mg tablet 40 mg feeding tube DAILY Qty: 30 1RF Glucagon Emergency Kit 1 mg Kit 1 mg PRN PRN (Reason: Hypoglycemia) acetaminophen [Pain Relief (acetaminophen)] 325 mg tablet 650 mg PRN PRN (Reason: Pain) Label Comments: Give 2 tablet(s) Oral Every Four Hours as needed acetaminophen [Pain Relief (acetaminophen)] 325 mg tablet 650 mg PO Q4H PRN (Reason: Pain) Label Comments: Give 2 tablet(s) Oral Every Four Hours as needed dextrose [Glucose Gel] 40 % Gel PO bisacodyl 10 mg Suppository 10 mg CO DAILY Fleet Enema 19-7 gram/118 mL Enema CO alum-mag hydroxide-simeth [Mag-Al Plus] 200-200-20 mg/5 mL suspension 30 ml PO Q4H PRN PRN (Reason: GI DISTRESS) Label Comments: Give 30 mL Oral Every Four Hours as needed Primary Care Provider: Lance Daley Referrals: Lance Daley MD [Primary Care Provider] - Disposition Disposition: Home, Self Care
--- NOTE | 2022-07-15 12:14 | RAD_ITS ---
STUDY: X-RAY - ABDOMEN/PELVIS REASON FOR EXAM: Female, 56 years old. Peg tube placement TECHNIQUE: Single AP view of the abdomen / pelvis. COMPARISON: None. FINDINGS: Gastrografin was introduced into the PEG tube. The PEG tube is in the stomach. RAD/Abdomen Single View (Portable) IMPRESSION: The PEG tube is in the stomach. Electronically Signed: Alton Gonzales MD at 12:57 EDT ,
--- NOTE | 2022-07-15 12:28 | PN.SURG_ITS ---
Subjective Subjective 56-year-old female well-known to me presents to the ER due to displaced PEG tube. Patient is currently at [facility] since 07/09/2022 she still been using her tube feeds if she eats less than 50% of her meals which is most the time. Contacted nursing at [facility] they stated that she had PEG in place last night and this morning at 830 noticed it was not in place. Patient was sent by squad to the ER. ER doctor was able to get a 14 Maldivian Isbell and after trying the 20 Maldivian PEG tube however patient was not the most cooperative during attempts. Objective Data Objective Data Vital Signs: Vital Signs Temp Pulse Resp BP Pulse Ox O2 Del Method 97.8 F 94 16 125/88 H 100 Room Air 07/15/22 09:26 07/15/22 09:26 07/15/22 09:26 07/15/22 09:26 07/15/22 09:26 07/15/22 09:26 Oxygen Delivery Method Room Air Weight: 97 lb 10.636 oz Body Mass Index (BMI) 15.7 Physical Exam Const oriented x3 and no apparent distress Resp normal respiratory effort Cardio regular rate GI GI Narrative: [address] Abdomen soft, nondistended, nontender. Previous incisions well-healed, no hernia appreciated in the left groin Assessment & Plan Assessment/Plan (1) PEG (percutaneous endoscopic gastrostomy) adjustment/replacement/removal: PLAN: Plan I did remove the 14 Maldivian Isbell was able to put a 20 Maldivian Envivo gastrostomy balloon tube with a 6 cc of saline in the balloon fairly easily with patient's cooperation. Did a KUB with 60 cc of Gastrografin contrast which showed that the tube is in the stomach. G-tube is at 3.5 the skin. Recommend patient having a binder in place to prevent from accidentally pulling this out. Tahmina Wayne M.D. Pager: [phone] [facility] [address] [place] [address], [address] [place] [id number] Office: [phone] Charges/Coding Procedures Digestive [id number]-49xxx: Other Procedure See Notes (60042)
--- NOTE | 2022-07-15 12:36 | ED.RN ---
REPORT CALLED TO NURSE AT [facility] INFORMING HER PATIENT WILL BE RETURNING TO FACILITY
--- NOTE | 2022-07-15 13:06 | ED.RN ---
PATIENT CONTINUOUSLY HITTING THE CALL LIGHT. PT INFORMED SHE CANNOT KEEP HITTING CALL LIGHT. PT ASKING FOR BEEPING FROM OTHER ROOMS TO BE SILENCED
[2022-07-15 14:03] VITALS: BP 142/86
== END 2022-07-15 14:04 | disposition home or self-care (01) ==
PROVIDERS: Emergency Provider Student in an Organized Health Care Education/Training Program; PCP Internal Medicine; Visit Provider Student in an Organized Health Care Education/Training Program
DX: K94.23 Gastrostomy malfunction (principal); F17.210 Nicotine dependence, cigarettes, uncomplicated
CPT/HCPCS: 74018; 99284

== ENCOUNTER → 2022-07-19 | Outpatient (REF) | payer MEDICAID, SELFPAY ==
[2022-07-19 09:44] LABS: Hematocrit 37.9 % (37-47); Hemoglobin 11.6 g/dL (12.0-15.0); Mean Corp Hgb Conc 30.6 g/dL (32-36); Mean Corpuscular Hgb 30.2 pg (27.0-32.0); Mean Corpuscular Volume 98.7 fL (81-99); Mean Platelet Vol. 9.7 fl (6.2-12.0); Platelet Count 453 K/mm3 (150-450); RBC Distribution Width CV 13.5 % (11.6-14.6); RBC Distribution Width SD 49.1 fl (35.1-43.9); Red Blood Count 3.84 M/mm3 (4.2-5.4); White Blood Count 15.4 K/mm3 (4.4-11.0)
[2022-07-19 10:07] LABS: Anion Gap 7 (5-15); BUN 25 mg/dL (7-18); Calcium,Total 9.3 mg/dL (8.5-10.1); Chloride 104 mmol/L (98-107); Creatinine, Serum 0.58 mg/dL (0.55-1.02); EST Glomerular Filtration Rate 113 mL/min (>60); Est Glom Filt Rate - Afr Amer 136 mL/min (>60); Glucose 74 mg/dL (74-106); Magnesium 2.3 mg/dL (1.6-2.6); Potassium 3.9 mmol/L (3.5-5.1); Sodium Level 139 mmol/L (136-145)
== END | disposition home or self-care (01) ==
LOC: OLS.SW 04:00
PROVIDERS: PCP Internal Medicine; Visit Provider Internal Medicine
DX: I63.9 Cerebral infarction, unspecified (principal); J80 Acute respiratory distress syndrome; E43 Unspecified severe protein-calorie malnutrition
CPT/HCPCS: 36415; 80048; 83735; 85027

== ENCOUNTER → 2022-07-21 | Outpatient (REF) | payer MEDICAID, SELFPAY ==
[2022-07-22 07:01] LABS: Bacteria 0 SEEN /hpf (None Seen); Mucous, Urine 0 SEEN /hpf (<or=2+); Red Blood Cells-Urine 0 SEEN /hpf (0-5)
[2022-07-22 07:37] LABS: Color, Urine Yellow (Yellow); Glucose, Dipstick Normal (Normal); Ketone-Dipstick Negative (Negative); Leukocyte Esterase-Dipstick 100 /ul (Negative); Nitrite-Dipstick Negative (Negative); Occult Blood-Urine 10 /ul (Negative); Protein-Dipstick 30 mg/dl (Negative); Specific Gravity, Urine 1.015 (1.002-1.030); Urine Bilirubin Dipstick Negative (Negative); Urine Clarity Clear (Clear); Urine Urobilinogen Normal (Normal)
[2022-07-22 07:48] LABS: Squamous Epithelial Cells - UA 0-5 SEEN /hpf (5-10); White Blood Cells 0-5 SEEN /hpf (0-5)
== END | disposition home or self-care (01) ==
LOC: OLS.SW 14:00
PROVIDERS: PCP Internal Medicine; Visit Provider Internal Medicine
DX: N39.0 Urinary tract infection, site not specified (principal)
CPT/HCPCS: 81001; 87086; 87088

== ENCOUNTER → 2022-07-27 | Outpatient (REF) | payer MEDICAID, SELFPAY ==
[2022-07-27 08:02] LABS: Hematocrit 38.6 % (37-47); Hemoglobin 12.1 g/dL (12.0-15.0); Mean Corp Hgb Conc 31.3 g/dL (32-36); Mean Corpuscular Hgb 30.4 pg (27.0-32.0); Mean Platelet Vol. 9.8 fl (6.2-12.0); Platelet Count 393 K/mm3 (150-450); RBC Distribution Width CV 13.5 % (11.6-14.6); RBC Distribution Width SD 48.3 fl (35.1-43.9); Red Blood Count 3.98 M/mm3 (4.2-5.4); White Blood Count 11.7 K/mm3 (4.4-11.0)
[2022-07-27 08:23] LABS: Anion Gap 7 (5-15); BUN 28 mg/dL (7-18); BUN/Creat Ratio 49.1 RATIO (10-20); Calcium,Total 9.4 mg/dL (8.5-10.1); Chloride 104 mmol/L (98-107); Creatinine, Serum 0.57 mg/dL (0.55-1.02); EST Glomerular Filtration Rate 115 mL/min (>60); Est Glom Filt Rate - Afr Amer 140 mL/min (>60); Glucose 104 mg/dL (74-106); Magnesium 2.3 mg/dL (1.6-2.6); Potassium 3.8 mmol/L (3.5-5.1); Sodium Level 138 mmol/L (136-145)
== END | disposition home or self-care (01) ==
LOC: OLS.SW 05:00
PROVIDERS: PCP Internal Medicine; Visit Provider Internal Medicine
DX: I10 Essential (primary) hypertension (principal); I63.9 Cerebral infarction, unspecified
CPT/HCPCS: 36415; 80048; 83735; 85027

== ENCOUNTER → 2022-08-11 | Outpatient (REF) | payer MEDICAID, SELFPAY ==
[2022-08-11 09:42] LABS: Absolute Lymphocyte Count 2.93 X10^3/uL (0.83-4.51); Absolute Neutrophil Count 6.2 X10^3/uL (2.0-7.7); Basophil# 0.06 X10^3/uL; Basophil% 0.6 % (0-1); Eosinophil# 0.27 X10^3/uL; Eosinophils% 2.6 % (0-5); Hematocrit 38.8 % (37-47); Hemoglobin 12.1 g/dL (12.0-15.0); Lymphocyte # 2.93 X10^3/ul (0.83-4.51); Lymphocyte % 27.8 % (19-41); Mean Corp Hgb Conc 31.2 g/dL (32-36); Mean Corpuscular Volume 96.3 fL (81-99); Mean Platelet Vol. 9.8 fl (6.2-12.0); Monocyte# 1.01 X10^3/uL; Monocyte% 9.6 % (0-10); NRBC Flagged by Analyzer 0 % (0-5); Neutrophil # 6.17 X10^3/uL (2.7-7.7); Neutrophil % 58.5 % (47-70); Platelet Count 390 K/mm3 (150-450); RBC Distribution Width CV 13.3 % (11.6-14.6); RBC Distribution Width SD 47.8 fl (35.1-43.9); Red Blood Count 4.03 M/mm3 (4.2-5.4); White Blood Count 10.5 K/mm3 (4.4-11.0)
[2022-08-11 10:04] LABS: ALB/GLOB Ratio 0.9 RATIO (0.9-2.4); AST(SGOT) 26 U/L (15-37); Alanine Aminotransfer ALT/SGPT 60 U/L (13-56); Albumin, Serum 3.2 g/dL (3.2-5.0); Alkaline Phosphatase 108 U/L (45-117); Anion Gap 7 (5-15); BUN 24 mg/dL (7-18); BUN/Creat Ratio 36.7 RATIO (10-20); Calcium,Total 9.2 mg/dL (8.5-10.1); Chloride 106 mmol/L (98-107); Creatinine, Serum 0.65 mg/dL (0.55-1.02); EST Glomerular Filtration Rate 99 mL/min (>60); Est Glom Filt Rate - Afr Amer 119 mL/min (>60); Globulin 3.5 g/dL (2.2-4.2); Glucose 111 mg/dL (74-106); Protein, Total 6.7 g/dL (6.4-8.2); Sodium Level 140 mmol/L (136-145)
== END | disposition home or self-care (01) ==
LOC: OLS.SW 05:00
PROVIDERS: PCP Internal Medicine; Visit Provider Internal Medicine
DX: R41.82 Altered mental status, unspecified (principal); R45.1 Restlessness and agitation
CPT/HCPCS: 36415; 80053; 85025

== ENCOUNTER → 2022-08-16 | Outpatient (REF) | payer MEDICAID, SELFPAY ==
[2022-08-16 08:41] LABS: Bacteria 0 SEEN /hpf (None Seen); Mucous, Urine 0 SEEN /hpf (<or=2+); Red Blood Cells-Urine 0 SEEN /hpf (0-5)
[2022-08-16 09:12] LABS: Color, Urine Yellow (Yellow); Glucose, Dipstick Normal (Normal); Ketone-Dipstick Negative (Negative); Leukocyte Esterase-Dipstick Negative /ul (Negative); Nitrite-Dipstick Negative (Negative); Occult Blood-Urine Negative /ul (Negative); Protein-Dipstick Negative (Negative); Urine Bilirubin Dipstick Negative (Negative); Urine Clarity Sl. Cloudy (Clear); Urine Urobilinogen Normal (Normal); Urine pH 6.5 (5.0 - 8.0)
[2022-08-16 09:28] LABS: Squamous Epithelial Cells - UA 0-5 SEEN /hpf (5-10); White Blood Cells 0-5 SEEN /hpf (0-5)
[2022-08-16 10:38] LABS: Amphetamine Urine VISTA NEGATIVE (<1000 ng/mL); Barbiturate Urine VISTA NEGATIVE (< 200 ng/mL); Benzodiazepine Urine VISTA NEGATIVE (< 200 ng/mL); Cocaine Urine VISTA NEGATIVE (< 300 ng/mL); Ecstacy Urine VISTA NEGATIVE (< 500 ng/mL); Methadone Urine VISTA NEGATIVE (< 300 ng/mL); PCP Urine VISTA NEGATIVE (< 25 ng/mL); THC Urine VISTA NEGATIVE (< 50 ng/mL); Vista UDS pH Range 6
== END | disposition home or self-care (01) ==
LOC: OLS.SW 03:50
PROVIDERS: PCP Internal Medicine; Referring Provider Internal Medicine; Visit Provider Internal Medicine
DX: N39.0 Urinary tract infection, site not specified (principal)
CPT/HCPCS: 80307; 81001; 87086; 87088

== ENCOUNTER → 2022-09-08 | Outpatient (REF) | payer MEDICAID, SELFPAY ==
[2022-09-08 09:28] LABS: Hematocrit 42.5 % (37-47); Hemoglobin 12.7 g/dL (12.0-15.0); Mean Corp Hgb Conc 29.9 g/dL (32-36); Mean Corpuscular Hgb 30.4 pg (27.0-32.0); Mean Corpuscular Volume 101.7 fL (81-99); Mean Platelet Vol. 9.6 fl (6.2-12.0); Platelet Count 316 K/mm3 (150-450); RBC Distribution Width CV 13.4 % (11.6-14.6); RBC Distribution Width SD 50.3 fl (35.1-43.9); Red Blood Count 4.18 M/mm3 (4.2-5.4)
[2022-09-08 11:24] LABS: ALB/GLOB Ratio 0.7 RATIO (0.9-2.4); AST(SGOT) 24 U/L (15-37); Alanine Aminotransfer ALT/SGPT 22 U/L (13-56); Albumin, Serum 3.1 g/dL (3.2-5.0); Alkaline Phosphatase 119 U/L (45-117); Anion Gap 8 (5-15); BUN 28 mg/dL (7-18); BUN/Creat Ratio 20.1 RATIO (10-20); Calcium,Total 8.5 mg/dL (8.5-10.1); Chloride 108 mmol/L (98-107); Creatinine, Serum 1.39 mg/dL (0.55-1.02); EST Glomerular Filtration Rate 41 mL/min (>60); Est Glom Filt Rate - Afr Amer 50 mL/min (>60); Globulin 4.4 g/dL (2.2-4.2); Glucose 104 mg/dL (74-106); Potassium 4.6 mmol/L (3.5-5.1); Protein, Total 7.5 g/dL (6.4-8.2); Sodium Level 136 mmol/L (136-145)
== END | disposition home or self-care (01) ==
LOC: OLS.SW 05:00
PROVIDERS: PCP Internal Medicine; Visit Provider Internal Medicine
DX: J96.01 Acute respiratory failure with hypoxia (principal); Z86.73 Personal history of transient ischemic attack (TIA), and cerebral infarction without residual deficits
CPT/HCPCS: 36415; 80053; 85027

== ENCOUNTER 2022-10-25 11:49 | Emergency (ER) | payer MEDICAID, SELFPAY ==
[2022-10-25 11:51] VITALS: BP 129/88; PULSE 79; RESP 14; TEMP 36.3; O2SAT 99; BMI 17.6
[2022-10-25] MEDS: LORazepam 2 MG/ML Syringe 1 MG IM (12:28)
--- NOTE | 2022-10-25 12:29 | EDS_ITS ---
HPI History of Present Illness Chief Complaint: General Illness Informant: patient and SNF Onset/Context/Timing Onset: Today Context: Sudden Onset Timing: Continuous Quality: Dull Location: Left upper abdomen Narrative Narrative: Patient presents with agitation that became worse today. Patient pulled out her PEG tube. Patient admits to some pain around the G-tube site. Patient denies any bleeding. Patient denies any fevers or chills. Patient denies any nausea or vomiting. Patient states her pain is mainly around the tube site. Patient denies any other abdominal pain. [facility] BEDS AT THE [facility] Medical History Acute CVA (cerebrovascular accident) Altered mental status Atrial fibrillation with rapid ventricular response Carpal tunnel syndrome Heart murmur Heartburn History of irregular heartbeat History of stress test Leg cramps On mechanically assisted ventilation Post-menopausal Reducible left inguinal hernia Seasonal allergies Smoker Wears glasses Home Medications apixaban 2.5 mg tablet (Eliquis) 2.5 mg feeding tube BID #60 tabs 06/06/22 [Rx Last Taken Unknown] atorvastatin 40 mg tablet 40 mg feeding tube DAILY #30 tabs 06/06/22 [Rx Last Taken Unknown] metoprolol tartrate 25 mg tablet 25 mg feeding tube BID #60 tabs 06/06/22 [Rx Last Taken Unknown] pantoprazole 40 mg granules delayed-release for susp in packet 40 mg feeding tube DAILY #30 ea 06/06/22 [Rx Last Taken Unknown] acetaminophen 325 mg tablet (Pain Relief (acetaminophen)) 650 mg PO Q4H PRN Pain 07/15/22 [History Last Taken Unknown] acetaminophen 325 mg tablet (Pain Relief (acetaminophen)) 650 mg PRN PRN Pain 07/15/22 [History Last Taken Unknown] aluminum-mag hydroxide-simethicone 200 mg-200 mg-20 mg/5 mL oral susp (Mag-Al Plus) 30 ml PO Q4H PRN PRN GI DISTRESS 07/15/22 [History Last Taken Unknown] bisacodyl 10 mg rectal suppository 10 mg UT DAILY CONSTIPATION 07/15/22 [History Last Taken Unknown] dextrose 40 % oral gel (Glucose Gel) PO 07/15/22 [History Last Taken Unknown] glucagon 1 mg injection kit 1 mg PRN PRN Hypoglycemia 07/15/22 [History Last Taken Unknown] sodium phosphates 19 gram-7 gram/118 mL enema (Fleet Enema) ml UT 07/15/22 [History Last Taken Unknown] Allergy/AdvReac Type Severity Reaction Status Date / Time No Known Allergies Allergy Verified 10/25/22 11:51 Family History Mother Myocardial infarction, Onset Age: 40 Anxiety and depression Father CVA (cerebral vascular accident) Sister Thyroid disorder Aunt Breast cancer Surgical History History of appendectomy Hx of colonoscopy S/P exploratory laparotomy S/P left inguinal hernia repair Social History Smoking Status: Current every day smoker tobacco type: cigarettes Tobacco: How many years used: 20 alcohol intake: never substance use type: does not use what type of physical activity do you participate in: walking frequency: 1-2 times per week ROS ROS ED Constitutional Constitutional ED: Denies chills or fever(s) Eyes Eyes: Denies blurry vision or change in vision ENT ENT ED: Denies rhinorrhea or sore throat Cardiovascular Cardiovascular: Denies chest pain or palpitations Respiratory/Chest Respiratory/Chest: Denies cough or dyspnea Gastrointestinal Gastrointestinal: Reports abdominal pain; Denies nausea or vomiting Genitourinary Genitourinary ED: Denies dysuria or hematuria Musculoskeletal Musculoskeletal: Denies back pain or neck pain Integumentary Denies abscess or rash Neurologic Neurologic: Denies headache(s) or weakness Allergic/Immunologic Allergic/Immunologic ED: Denies mouth swelling or urticaria EXAM Physical Exam Const Vital Signs: 10/25/22 11:51 10/25/22 11:54 Temperature 97.4 F L Temperature Source Temporal Pulse Rate 79 Respiratory Rate 14 Respiratory Pattern Normal Blood Pressure 129/88 H Blood Pressure Mean 101 Pulse Ox 99 Oxygen Delivery Method Room Air Positive well nourished and well developed General Appearance ED: well developed and NAD HEENT Reports moist mucous membranes Neck supple and no JVD Resp normal respiratory effort and clear to auscultation bilaterally Cardio regular rate, regular rhythm and no murmurs GI normal to inspection, nondistended, normoactive bowel sounds Palpation: soft and tender LUQ Extremity normal to inspection General Extremety ED: Negative for edema or tenderness General Extremity: Negative for edema Neuro CN's II-XII intact bilaterally and no sensory deficits noted Sensorium / Orientation: alert Motor Exam: strength 5/5 throughout Psych mental status grossly normal Attitude: agitated Skin no rashes or lesions noted Skin Narrative: There is an open wound on the left upper abdomen. There is mild tenderness around the site. There is no erythema. There is no discharge or drainage noted. MDM MDM MDM Narrative Medical decision making narrative: The PEG tube was replaced. Patient tolerated the procedure well. Gastrografin study will be obtained to ensure placement. Patient was given a dose of Ativan. Patient was instructed to follow-up with her primary care physician in 5 to 7 days. Patient understood and was agreeable with the plan. All questions were answered. Radiography Diagnostic Testing: Clinical Impression(s) from Imaging Studies KUB X-Ray 10/25/22 12:38 IMPRESSION: The PEG tube is seen within the body of the stomach. Electronically Signed: Alton Gonzales MD at 12:55 EDT , KUB with Gastrografin study was obtained. There is 1 view. On my independent interpretation, PEG tube is within the body of the stomach. Radiologist also interpreted the x-ray and agrees. Procedures Other Procedures Procedure(s): The PEG tube site was cleaned. The PEG tube was inserted with mild resistance. There is some mild bleeding noted from the tube. Patient tolerated the procedure well. Balloon was inflated. Gastrografin study was obtained which showed placement of the tube within the stomach. Discharge Plan Triage Chief Complaint: General Illness ED Provider: Marcial Velásquez Dx/Rx/DC Orders Clinical Impression: PEG (percutaneous endoscopic gastrostomy) adjustment/replacement/removal Instructions: ED Feeding Tube Replacement Prescriptions: No Action Eliquis 2.5 mg tablet 2.5 mg feeding tube BID Qty: 60 1RF Rx Instructions: to be crushed and administered via PEG tube pantoprazole [address] for susp in packet 40 mg feeding tube DAILY Qty: 30 1RF Rx Instructions: to be administered via PEG tube metoprolol tartrate 25 mg tablet 25 mg feeding tube BID Qty: 60 1RF atorvastatin 40 mg tablet 40 mg feeding tube DAILY Qty: 30 1RF Glucagon Emergency Kit 1 mg Kit 1 mg PRN PRN (Reason: Hypoglycemia) acetaminophen [Pain Relief (acetaminophen)] 325 mg tablet 650 mg PRN PRN (Reason: Pain) Patient Comments: Give 2 tablet(s) Oral Every Four Hours as needed acetaminophen [Pain Relief (acetaminophen)] 325 mg tablet 650 mg PO Q4H PRN (Reason: Pain) Patient Comments: Give 2 tablet(s) Oral Every Four Hours as needed dextrose [Glucose Gel] 40 % Gel PO bisacodyl 10 mg Suppository 10 mg UT DAILY Fleet Enema 19-7 gram/118 mL Enema UT alum-mag hydroxide-simeth [Mag-Al Plus] 200-200-20 mg/5 mL suspension 30 ml PO Q4H PRN PRN (Reason: GI DISTRESS) Patient Comments: Give 30 mL Oral Every Four Hours as needed Primary Care Provider: Nicanor Carter Referrals: Lance Daley MD [Med Staff - Active Staff] - 3-5 Days Disposition Disposition: Nursing Home Facility Discharge Location: [facility]
--- NOTE | 2022-10-25 12:38 | RAD_ITS ---
STUDY: X-RAY - ABDOMEN/PELVIS REASON FOR EXAM: Female, 57 years old. PEG tube replacement -- Inject with Gastrografin please TECHNIQUE: Single AP view of the abdomen / pelvis. COMPARISON: None. FINDINGS: Contrast was injected into the indwelling PEG tube. The PEG tube is within the body of the stomach. RAD/Abdomen Single View (Portable) IMPRESSION: The PEG tube is seen within the body of the stomach. Electronically Signed: Alton Gonzales MD at 12:55 EDT ,
[2022-10-25 14:07] VITALS: RESP 18
== END 2022-10-25 14:43 | disposition skilled nursing facility (03) ==
PROVIDERS: Emergency Provider Emergency Medicine; PCP Family Medicine; Visit Provider Emergency Medicine
DX: K94.29 Other complications of gastrostomy (principal); F17.210 Nicotine dependence, cigarettes, uncomplicated
CPT/HCPCS: 43762; 74018; 96372; 99284

== ENCOUNTER 2022-11-20 20:10 | Emergency (ER) | payer MEDICAID, SELFPAY ==
[2022-11-20 20:10] VITALS: BP 124/81; PULSE 80; RESP 16; TEMP 37.1; O2SAT 100; BMI 18.6
--- NOTE | 2022-11-20 20:23 | EDS_ITS ---
HPI History of Present Illness Chief Complaint: Alt LOC Informant: patient and SNF Onset/Context/Timing Onset: Today Context: Gradual Onset Timing: Continuous Current Severity: Mild Maximum Severity: Mild Narrative Narrative: 57-year-old female history of stroke and A-fib is a resident at the [facility]. They sent her in today for acting out. Patient herself denies any complaints. Recent Illness/Hospitalization: No PFSH [facility] Medical History (Updated 11/20/22 @ 21:[address] 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 History of irregular heartbeat History of stress test Hyperlipidemia Hypertension Leg cramps Major depressive disorder, recurrent, unspecified On mechanically assisted ventilation Post-menopausal Reducible left inguinal hernia Seasonal allergies Smoker Wears glasses Home Medications atorvastatin 40 mg tablet 40 mg feeding tube DAILY #30 tabs 06/06/22 [Rx Last Taken Unknown] metoprolol tartrate 25 mg tablet 25 mg feeding tube BID #60 tabs 06/06/22 [Rx Last Taken Unknown] pantoprazole 40 mg granules delayed-release for susp in packet 40 mg feeding tube DAILY #30 ea 06/06/22 [Rx Last Taken Unknown] acetaminophen 325 mg tablet (Pain Relief (acetaminophen)) 650 mg PO PRN PRN Pain 07/15/22 [History Last Taken Unknown] acetaminophen 325 mg tablet (Pain Relief (acetaminophen)) 650 mg PO Q4H PRN Pain 07/15/22 [History Last Taken Unknown] aluminum-mag hydroxide-simethicone 200 mg-200 mg-20 mg/5 mL oral susp (Mag-Al Plus) 30 ml PO Q4H PRN PRN GI DISTRESS 07/15/22 [History Last Taken Unknown] bisacodyl 10 mg rectal suppository 10 mg DE DAILY CONSTIPATION 07/15/22 [History Last Taken Unknown] dextrose 40 % oral gel (Glucose Gel) 1 ea PO PRN PRN hypoglycemia 07/15/22 [History Last Taken Unknown] glucagon 1 mg injection kit 1 mg IM PRN PRN Hypoglycemia 07/15/22 [History Last Taken Unknown] apixaban 2.5 mg tablet (Eliquis) 5 mg feeding tube BID 11/20/22 [History Last Taken Unknown] buspirone 5 mg tablet 15 mg PO BID 11/20/22 [History Last Taken Unknown] divalproex 250 mg tablet,extended release 24 hr (Depakote ER) 250 mg PO BID 11/20/22 [History Last Taken Unknown] guaifenesin 100 mg/5 mL oral liquid (Cough Syrup) 200 mg PO Q4H PRN cough 11/20/22 [History Last Taken Unknown] lorazepam 0.5 mg tablet 0.5 mg PO Q6H PRN anxiety 11/20/22 [History Last Taken Unknown] melatonin 1 mg tablet 2 mg PO QHS 11/20/22 [History Last Taken Unknown] oxybutynin chloride 5 mg tablet 5 mg PO DAILY 11/20/22 [History Last Taken Unknown] quetiapine 50 mg tablet (Seroquel) 50 mg PO QHS 11/20/22 [History Last Taken Unknown] sertraline 25 mg tablet 100 mg PO Q24H 11/20/22 [History Last Taken Unknown] Allergy/AdvReac Type Severity Reaction Status Date / Time haloperidol [From Haldol] Allergy NEEDS Verified 11/20/22 20:15 FOLLOW-UP Family History Mother Myocardial infarction, Onset Age: 40 Anxiety and depression Father CVA (cerebral vascular accident) Sister Thyroid disorder Aunt Breast cancer Surgical History (Updated 11/20/22 @ 20:35 by Rodolfo Murillo) Gastrostomy status History of appendectomy Hx of colonoscopy S/P exploratory laparotomy S/P left inguinal hernia repair Social History Smoking Status: Current every day smoker tobacco type: cigarettes Tobacco: How many years used: 20 alcohol intake: never substance use type: does not use what type of physical activity do you participate in: walking frequency: 1-2 times per week ROS ROS ED ROS Narrative Pt denies and recent illness. Review of Systems ROS Unobtainable: Denies due to encephalopathy Constitutional Constitutional ED: Denies chills or fever(s) Eyes Eyes: Denies blurry vision ENT ENT ED: Denies ear pain Cardiovascular Cardiovascular: Denies chest pain Respiratory/Chest Respiratory/Chest: Denies cough Gastrointestinal Gastrointestinal: Denies abdominal pain Genitourinary Genitourinary ED: Denies dysuria or hematuria Musculoskeletal Musculoskeletal: Denies arthralgias or back pain Neurologic Neurologic: Denies headache(s) Psychiatric Psychiatric: Denies anxiety or depression Endocrine Endocrinology: Denies cold intolerance Hematologic/Lymphatic Hematologic/Lymphatic: Reports none Allergic/Immunologic Allergic/Immunologic ED: Denies mouth swelling, tongue swelling or urticaria EXAM Physical Exam Narrative Exam Narrative: 57-year-old female no acute distress. Vital signs stable afebrile. Pulse ox 100% on room air. No hypoxia. As I walk in the room she is sitting upright in bed she is calm collected and quiet. She is answering questions and follows commands. She is cooperative. HEENT exam unremarkable atraumatic. Moist with membranes. Neck nontender no lymphadenopathy. Lungs clear to auscultation bilaterally. Heart regular rhythm rate about 80 no murmur. Chest were nontender. Abdomen soft nontender. She has a feeding tube in her left upper quadrant. Moves all 4 extremities. Nontender no edema. Neurologically she knows she is in the hospital. Const Vital Signs: 11/20/22 20:10 Temperature 98.7 F Temperature Source Oral Pulse Rate 80 Respiratory Rate 16 Blood Pressure 124/81 H Blood Pressure Mean 95 Pulse Ox 100 Oxygen Delivery Method Room Air Positive well nourished and well developed; Negative for obese, cachectic, contractures or unkempt General Appearance ED: well developed and NAD; Negative for unkempt, cachectic, contractures, cyanotic or diaphoretic Nutritional Appearance: Negative for cachectic or obese HEENT Reports moist mucous membranes; Denies dry mucous membranes Negative for trauma or tenderness Mouth ED: No dry mucous membranes Mouth: No dry mucous membranes Eyes PERRL and EOMs intact bilaterally General Eye ED: Negative for pale conjunctiva or scleral icterus Neck no lymphadenopathy, supple and no JVD General: Negative for tenderness Lymph Lymphatic: Negative for other Chest Wall inspection of chest normal and palpation of chest normal Chest: Negative for other Resp normal respiratory effort and clear to auscultation bilaterally Effort and Inspection: Negative for retractions Auscultation: Negative for rales, rhonchi or wheezes Cardio regular rate, regular rhythm, S1 normal heart sound, S2 normal heart sound and no murmurs Rhythm: Negative for abnormal rhythm GI normal to inspection, nondistended, normoactive bowel sounds, non-tender, non- distended and no masses Inspection: Negative for abdominal distention Auscultation: normoactive bowel sounds Palpation: soft; Negative for tender or guarding Bladder / Kidney Exam: No other Back/Spine no CVA tenderness General Back: Negative for CVA tenderness Cervical Spine: Negative for cervical spine tenderness Thoracic Spine / Upper Back: Negative for thoracic spinal tenderness or paraspinal muscle tenderness Lumbar Spine / Lower Back: Negative for lumbar spinal tenderness Extremity normal to inspection General Extremety ED: Negative for edema or tenderness General Extremity: Negative for edema Neuro Neuro Narrative: Patient knows who she is. She knows she is in the hospital. Sensorium / Orientation: alert; Negative for lethargic or stuporous Motor Exam: strength 5/5 throughout Psych mental status grossly normal Appearance: Negative for unkempt Attitude: No agitated Mood & Affect: Negative for depressed, anxious or tearful Skin no rashes or lesions noted, no wounds and skin turgor normal General Skin Exam: elasticity normal; Negative for jaundice Lesions: No lesion noted Rashes: No rashes noted Trauma: Negative for abrasion Wounds: Negative for wounds noted MDM MDM MDM Narrative Medical decision making narrative: 57-year-old female from [facility]. Sent in for acting out. I called and spoke to the staff in the status that she has episodes like this intermittently. She was yelling and screaming tonight. Was hallucinating there were raccoons in her room. They deny any recent illness. They sent her in for evaluation. She has had episodes like this before and they believe the behavioral. Repeat exam patient doing well at 9:54 PM. She has been calm and active the entire time in the emergency department. She has not been acting out. She will be discharged back to the [facility]. History & Record Review Discussion w/independent historian: Patient and Other (group home facility.) Additional record(s) reviewed:: Prior inpatient record, Prior outpatient record, Prior ED visit and Prior labs Lab Data Attestation: I reviewed the patient's lab results. Lab results narrative: BC shows a white count of 9.3. H&H 9.2 and 29.1. Platelets 259. History of chronic anemia. Electrolytes show a gap of 4 BUN and creatinine 23 0.6. Glucose of 89. Urinalysis is negative. No signs of infection. No white or red cells. No nitrates. No bacteria. Labs: Laboratory Results - last 24 hr 11/20/22 11/20/22 20:40 20:47 WBC 9.3 RBC 3.20 L Hgb 9.2 L Hct 29.1 L MCV 90.9 MCH 28.8 MCHC 31.6 L RDW Std Deviation 47.7 H RDW Coeff of Audrey 14.2 Plt Count 259 MPV 10.0 Immature Gran % (Auto) 0.400 Neut % (Auto) 53.8 Lymph % (Auto) 30.2 [place] % (Auto) 13.1 H Eos % (Auto) 2.2 Baso % (Auto) 0.3 Absolute Neuts (auto) 5.0 Absolute Lymphs (auto) 2.79 Nucleated RBC % 0 Sodium 140 Potassium 3.8 Chloride 106 Carbon Dioxide 30.0 Anion Gap 4 L BUN 23 H Creatinine 0.67 Estim Creat Clear Calc 72.65 Est GFR (MDRD) Af Amer 117 Est GFR (MDRD) Non-Af 96 BUN/Creatinine Ratio 34.5 H Glucose 89 Calcium 8.8 Urine Color Yellow Urine Clarity Clear Urine pH 7.0 Ur Specific Banner 1.010 Urine Protein Negative Urine Glucose (UA) Normal Urine Ketones Negative Urine Occult Blood Negative Urine Nitrite Negative Urine Bilirubin Negative Urine Urobilinogen Normal Ur Leukocyte Esterase 25 H Urine RBC 0 SEEN Urine WBC 0 SEEN Ur Squamous Epith Cells 0 SEEN Urine Bacteria 0 SEEN Urine Mucus 0 SEEN Discharge Plan Triage Chief Complaint: Alt LOC ED Provider: Silvino Prado Dx/Rx/DC Orders Clinical Impression: Acting out as mental defense mechanism, History of embolic stroke, History of atrial fibrillation, Chronic anemia Prescriptions: No Action pantoprazole [address] for susp in packet 40 mg feeding tube DAILY Qty: 30 1RF Rx Instructions: to be administered via PEG tube metoprolol tartrate 25 mg tablet 25 mg feeding tube BID Qty: 60 1RF atorvastatin 40 mg tablet 40 mg feeding tube DAILY Qty: 30 1RF Glucagon Emergency Kit 1 mg Kit 1 mg IM PRN PRN (Reason: Hypoglycemia) acetaminophen [Pain Relief (acetaminophen)] 325 mg tablet 650 mg PO PRN PRN (Reason: Pain) Patient Comments: Give 2 tablet(s) Oral Every Four Hours as needed acetaminophen [Pain Relief (acetaminophen)] 325 mg tablet 650 mg PO Q4H PRN (Reason: Pain) Patient Comments: Give 2 tablet(s) Oral Every Four Hours as needed dextrose [Glucose Gel] 40 % Gel 1 ea PO PRN PRN (Reason: hypoglycemia) bisacodyl 10 mg Suppository 10 mg DE DAILY alum-mag hydroxide-simeth [Mag-Al Plus] 200-200-20 mg/5 mL suspension 30 ml PO Q4H PRN PRN (Reason: GI DISTRESS) Patient Comments: Give 30 mL Oral Every Four Hours as needed lorazepam 0.5 mg tablet 0.5 mg PO Q6H PRN (Reason: anxiety) buspirone 5 mg tablet 15 mg PO BID divalproex [Depakote ER] 250 mg tablet extended release 24 hr 250 mg PO BID guaifenesin [Cough Syrup] 100 mg/5 mL liquid 200 mg PO Q4H PRN (Reason: cough) melatonin 1 mg tablet 2 mg PO QHS sertraline 25 mg tablet 100 mg PO Q24H quetiapine [Seroquel] 50 mg tablet 50 mg PO QHS oxybutynin chloride 5 mg tablet 5 mg PO DAILY Eliquis 2.5 mg tablet 5 mg feeding tube BID Rx Instructions: to be crushed and administered via PEG tube Primary Care Provider: Nicanor Carter Referrals: Nicanor Carter MD [Primary Care Provider] - As soon as possible Activity Restrictions/Additional Instructions: Patient's labs and urinalysis were unremarkable. She has a chronic anemia. He was calm and relaxed the entire time in the emergency department. Follow-up with your medical device sales consultant to decide what they want to do to treat her episodes of acting out. Disposition Disposition: Home, Self Care
[2022-11-20 20:49] LABS: Absolute Lymphocyte Count 2.79 X10^3/uL (0.83-4.51); Basophil# 0.03 X10^3/uL; Basophil% 0.3 % (0-1); Eosinophils% 2.2 % (0-5); Hematocrit 29.1 % (37-47); Hemoglobin 9.2 g/dL (12.0-15.0); Lymphocyte # 2.79 X10^3/ul (0.83-4.51); Lymphocyte % 30.2 % (19-41); Mean Corp Hgb Conc 31.6 g/dL (32-36); Mean Corpuscular Hgb 28.8 pg (27.0-32.0); Mean Corpuscular Volume 90.9 fL (81-99); Monocyte# 1.21 X10^3/uL; Monocyte% 13.1 % (0-10); NRBC Flagged by Analyzer 0 % (0-5); Neutrophil # 4.98 X10^3/uL (2.7-7.7); Neutrophil % 53.8 % (47-70); Platelet Count 259 K/mm3 (150-450); RBC Distribution Width CV 14.2 % (11.6-14.6); RBC Distribution Width SD 47.7 fl (35.1-43.9); White Blood Count 9.3 K/mm3 (4.4-11.0)
[2022-11-20 20:51] LABS: Bacteria 0 SEEN /hpf (None Seen); Color, Urine Yellow (Yellow); Glucose, Dipstick Normal (Normal); Ketone-Dipstick Negative (Negative); Leukocyte Esterase-Dipstick 25 /ul (Negative); Mucous, Urine 0 SEEN /hpf (<or=2+); Nitrite-Dipstick Negative (Negative); Occult Blood-Urine Negative /ul (Negative); Protein-Dipstick Negative (Negative); Red Blood Cells-Urine 0 SEEN /hpf (0-5); Squamous Epithelial Cells - UA 0 SEEN /hpf (5-10); Urine Bilirubin Dipstick Negative (Negative); Urine Clarity Clear (Clear); Urine Urobilinogen Normal (Normal); White Blood Cells 0 SEEN /hpf (0-5)
[2022-11-20 21:12] LABS: Anion Gap 4 (5-15); BUN 23 mg/dL (7-18); BUN/Creat Ratio 34.5 RATIO (10-20); Calcium,Total 8.8 mg/dL (8.5-10.1); Chloride 106 mmol/L (98-107); Creatinine, Serum 0.67 mg/dL (0.55-1.02); EST Glomerular Filtration Rate 96 mL/min (>60); Est Glom Filt Rate - Afr Amer 117 mL/min (>60); Estimated Creatinine Clearance 72.65 ml/min; Glucose 89 mg/dL (74-106); Potassium 3.8 mmol/L (3.5-5.1); Sodium Level 140 mmol/L (136-145)
[2022-11-20 22:10] VITALS: RESP 18
[2022-11-21] VITALS: RESP 18
== END 2022-11-21 01:50 | disposition home or self-care (01) ==
PROVIDERS: Emergency Provider Emergency Medicine; PCP Family Medicine; Visit Provider Emergency Medicine
DX: F91.9 Conduct disorder, unspecified (principal); I48.91 Unspecified atrial fibrillation; F17.210 Nicotine dependence, cigarettes, uncomplicated; I10 Essential (primary) hypertension; Z86.73 Personal history of transient ischemic attack (TIA), and cerebral infarction without residual deficits; E78.5 Hyperlipidemia, unspecified; Z79.899 Other long term (current) drug therapy; D64.9 Anemia, unspecified
CPT/HCPCS: 80048; 81001; 85025; 99284